=== PATIENT | male | born 1950 | race Caucasian/White ===

== ENCOUNTER 2020-02-17 09:24 | Inpatient (IN) | payer OTHER ==
[~2020-02-17] VITALS: Ht 177.8 cm; Wt 68.3 kg
[2020-02-17 09:55] VITALS: BP 122/82
[2020-02-17] MEDS ORDERED: POTA20TA4 PO (11:08)
[2020-02-17] MEDS ORDERED: ATEN50TA PO (11:08)
[2020-02-17] MEDS ORDERED: ASPI-630 PO (11:08)
[2020-02-17] MEDS ORDERED: QUET50TA5 PO (11:08)
[2020-02-17] MEDS ORDERED: PRAV80TA2 PO (11:08)
[2020-02-17] MEDS ORDERED: SENN8.8S5 PO (11:08)
[2020-02-17] MEDS ORDERED: CALC-56 PO (11:08)
[2020-02-17] MEDS ORDERED: ASCO500T3 PO (11:08)
[2020-02-17] MEDS ORDERED: CHOL100013 PO (11:08)
[2020-02-17] MEDS ORDERED: POLY2500 PO (11:08)
[2020-02-17 13:37] LABS: BASO % 1 % (0-3); EOS % 1 % (0-3); HEMATOCRIT 46.3 % (39.0-53.0); HEMOGLOBIN 15.7 g/dL (13.0-17.5); LYMPH % 17 % (24-48); MEAN CORPUSCULAR HEMOGLOBIN 32 pg (25-35); MEAN CORPUSCULAR HGB CONC 34 g/dL (31-37); MEAN CORPUSCULAR VOLUME 95 fL (79-100); MONO # 0.5 x10^3/uL (0.0-1.1); MONO % 9 % (0-9); NEUT # 4.3 x10^3uL (1.8-7.7); NEUT % 73 % (31-73); PLATELET COUNT 161 x10^3/uL (140-400); RED CELL DISTRIBUTION WIDTH 12.5 % (11.5-14.5); WHITE BLOOD COUNT 5.9 x10^3/uL (4.0-11.0)
[2020-02-17 13:52] LABS: ALBUMIN 3.5 g/dL (3.4-5.0); ALBUMIN/GLOBULIN RATIO 1.1 (1.0-1.7); CALCIUM 9.3 mg/dL (8.5-10.1); CREATININE 0.9 mg/dL (0.7-1.3); GFR 83.2; MAGNESIUM 2.2 mg/dL (1.8-2.4); POTASSIUM 3.9 mmol/L (3.5-5.1); TOTAL BILIRUBIN 0.6 mg/dL (0.2-1.0); TOTAL PROTEIN 6.7 g/dL (6.4-8.2)
[2020-02-17 14:48] VITALS: BP 114/77
--- NOTE | 2020-02-17 15:35 | EKG ---
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
--- NOTE | 2020-02-17 16:46 | HP ---
ADMIT DATE: 02/17/2020 HISTORY OF PRESENT ILLNESS: The patient is a 69-year-old male patient who was referred from [place] with [facility]. He was admitted to [address] [place] [address] to screen for COVID-19 that was already negative there eventually for him to be admitted to [facility] on account of suicidal ideation without any plan, the patient feels in the dark place, wants to , feels unsafe to return to assisted living facility apartment. He is noncompliant with his medication. He apparently has failed outpatient psych treatment and therefore, he will be eventually admitted to [facility] for inpatient psychiatric stabilization. PAST MEDICAL HISTORY: Significant for hypertension, hyperlipidemia, allergic rhinitis. He has vascular dementia with behavioral disturbances. 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 He apparently has poor mobility. He is mostly wheelchair bound. PAST SURGICAL HISTORY: Unremarkable. ALLERGIES: He has no known drug allergies. MEDICATIONS: He was transferred to our hospital to continue on following medications: Pravastatin 80 mg at bedtime, atenolol 50 mg daily, aspirin 81 mg once a day, quetiapine fumarate 25 mg at bedtime, calcium carbonate with vitamin D3 one tablet once a day, potassium chloride 40 mEq once a day, senna 1 tablet daily, ascorbic acid 500 mg daily, cholecalciferol 25 mcg p.o. daily, and polyethylene glycol 17 grams daily. FAMILY HISTORY: Noncontributory. SOCIAL HISTORY: He is apparently . His son has and he has a daughter who lives in [place], [place]. He is a smoker, apparently had history of heavy drinking and alcoholism that quit about 5 years ago. 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 His son had by suicide in 2010. REVIEW OF SYSTEMS: The patient denied any blurring of vision, cataract, glaucoma or macular degeneration. Denied any earache. PHYSICAL EXAMINATION: GENERAL: When examining him today, he was resting slightly propped up in bed, in no apparent respiratory distress. No pallor, jaundice, cyanosis or thyromegaly. No jugular venous distention. No limb edema. VITAL SIGNS: His heart rate was 78, blood pressure was 114/77, temperature was 98, respiratory rate was 20, and oxygen saturation was 98%. HEAD, EYES, EARS, NOSE AND THROAT: Normocephalic, atraumatic. NECK: Supple. HEART: Showed normal first and second heart sounds. No gallop or murmur. CHEST: Clear to auscultation. No crepitation or rhonchi. ABDOMEN: Distended, soft, nontender. NEUROLOGIC: He was awake, alert, somewhat hard of hearing. He has also expressive aphasia and right-sided weakness with fixed flexion contraction of his right upper and right lower extremity. He has poor mobility and high fall risk. He is mostly wheelchair bound. LABORATORY DATA: Showed a white cell count of 5900, hemoglobin 15.7, hematocrit 46, MCV 95, and platelet count of 161,000. His serum sodium 140, potassium 3.9, chloride 104, bicarbonate 25, anion gap of 11, BUN 15, creatinine 0.9, estimated GFR was 83 mL per minute, his glucose 108, calcium was 9.3, magnesium was 2.2. Total bilirubin, AST, ALT, and alkaline phosphatase were normal. Total protein was 6.7, albumin was 3.5. His D-dimer was less than 0.20. ASSESSMENT AND PLAN: In summary, this is a 69-year-old male patient who was admitted to [address] [place] [address] to be screened for COVID-19. Once it is negative, the patient will ultimately be transferred to [facility] on account of suicidal ideation without any plan. The patient feels in dark place, wants to . He is unsafe to return to assisted living facility apartment. He will be admitted for inpatient psychiatric stabilization. ANT LAUGHLIN MD DR: LANIE/dawood JOB#: [id number] / [id number]
[2020-02-17 19:56] VITALS: BP 120/79
--- NOTE | 2020-02-17 20:46 | PDOC ---
Exam Note: Daren Note: Please also refer to the separate dictated note~for this date of service dictated separately.~Patient seen individually. Discussed the patient with Nursing staff reviewed the chart.~Reviewed interim history and current functioning. Reviewed vital signs,~Labs/ Radiology~and current medications noted below. Continue current treatment with the changes noted in the dictated addendum note Assessment: Vital Signs/I&O: Vital Signs Date Time Temp Pulse Resp B/P (MAP) Pulse Ox O2 Delivery O2 Flow Rate FiO2 02/17/20 19:56 97.3 77 20 120/79 (93) 95 Room Air Labs: Laboratory Tests Test 02/17/20 09:35 02/17/20 13:15 Coronavirus (COVID-19)(PCR) Negative (NEGATIVE) White Blood Count 5.9 x10^3/uL (4.0-11.0) Red Blood Count 4.90 x10^6/uL (4.30-5.70) Hemoglobin 15.7 g/dL (13.0-17.5) Hematocrit 46.3 % (39.0-53.0) Mean Corpuscular Volume 95 fL (79-100) Mean Corpuscular Hemoglobin 32 pg (25-35) Mean Corpuscular Hemoglobin Concent 34 g/dL (31-37) Red Cell Distribution Width 12.5 % (11.5-14.5) Platelet Count 161 x10^3/uL (140-400) Neutrophils (%) (Auto) 73 % (31-73) Lymphocytes (%) (Auto) 17 % (24-48) L Monocytes (%) (Auto) 9 % (0-9) Eosinophils (%) (Auto) 1 % (0-3) Basophils (%) (Auto) 1 % (0-3) Neutrophils # (Auto) 4.3 x10^3uL (1.8-7.7) Lymphocytes # (Auto) 1.0 x10^3/uL (1.0-4.8) Monocytes # (Auto) 0.5 x10^3/uL (0.0-1.1) Eosinophils # (Auto) 0.0 x10^3/uL (0.0-0.7) Basophils # (Auto) 0.0 x10^3/uL (0.0-0.2) D-Dimer (Swathi) 0.20 mg/L (0.00-0.50) Sodium Level 140 mmol/L (136-145) Potassium Level 3.9 mmol/L (3.5-5.1) Chloride Level 104 mmol/L (98-107) Carbon Dioxide Level 25 mmol/L (21-32) Anion Gap 11 (6-14) Blood Urea Nitrogen 15 mg/dL (8-26) Creatinine 0.9 mg/dL (0.7-1.3) Estimated GFR (Cockcroft-Gault) 83.2 BUN/Creatinine Ratio 17 (6-20) Glucose Level 108 mg/dL (70-99) H Calcium Level 9.3 mg/dL (8.5-10.1) Magnesium Level 2.2 mg/dL (1.8-2.4) Total Bilirubin 0.6 mg/dL (0.2-1.0) Aspartate Amino Transferase (AST) 9 U/L (15-37) L Alanine Aminotransferase (ALT) 12 U/L (16-63) L Alkaline Phosphatase 74 U/L (46-116) Total Protein 6.7 g/dL (6.4-8.2) Albumin 3.5 g/dL (3.4-5.0) Albumin/Globulin Ratio 1.1 (1.0-1.7) Current Medications: I have reviewed the current psychotropics carefully including drug interactions. Risk benefit ratio favors no change other than as noted in my dictated progress note. MICHAEL MCKEON MD Feb 17, 2020 20:45
[2020-02-18 02:06] LABS: HEMOGLOBIN A1C 5.1 % (4.8-5.6)
--- NOTE | 2020-02-18 08:29 | CONS ---
DATE OF CONSULTATION: 02/17/2020 PSYCHIATRIC CONSULTATION IDENTIFYING DATA: The patient is a 69-year-old male seen in bed 124, [facility], for a psychiatric consult requested by Dr. Nuñez after the patient was referred to us from [facility] and was admitted for [facility] for psychiatric stabilization for his depression, voicing suicidal ideation without any plan. Additionally, he stated he felt he was in a dark place, wanting to , felt unsafe to return to assisted living facility, referred to [facility] and then admitted to [facility] Medical/Surgical floor for COVID screen before going to [facility]. CHIEF COMPLAINT: "Yes, that is how I feel sometimes." HISTORY OF PRESENT ILLNESS: The patient has a history of worsening symptoms of depression, feeling angry, irritable, sleep and appetite changes, some paranoia and suicidal ideation, but without any plans or attempt. No clear symptoms of bipolar disorder. He is reasonably cognitively intact, though he had some short-term memory deficits. PAST PSYCHIATRIC HISTORY: As above. MEDICAL HISTORY: Hypertension, hyperlipidemia, allergic rhinitis, left middle cerebral artery infarct, right sided hemiplegia, aphasia, poor mobility, mostly wheelchair bound. SURGICAL HISTORY: Unremarkable. ALLERGIES: Negative. CURRENT PSYCHOTROPICS: MRAD was reviewed, Seroquel 25 mg at bedtime. FAMILY HISTORY: Noncontributory. SOCIAL HISTORY: The patient is . His son has and he has a daughter who lives in [place], [place]. He is a smoker, has a history of heavy alcohol abuse, quit 5 years ago. 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 Son of suicide in 2010. REVIEW OF SYSTEMS: Ambulation impaired. No CV, , pulmonary, eye, ENT system symptoms on review. MENTAL STATUS EXAMINATION: The patient is reasonably oriented. Speech is coherent, has had some aphasia. Abstraction fair, computation impaired, language function intact, attention span short. Mood and affect withdrawn. LABORATORY DATA: Reviewed. IMPRESSION: Major depressive disorder, recurrent, rule out psychotic features, mild cognitive impairment; anxiety disorder, unspecified; past history of alcohol and polysubstance abuse. Rest as above. RECOMMENDATION: From a psychiatric standpoint, I would not suggest any changes for now. Once COVID is negative, he may transition to [facility] and will continue management there. MAN Sonu MCKEON MD DR: Haroon JOB#: [id number] / [id number]
== END 2020-02-17 22:37 | DRG 885 ==
LOC: 1 SOUTH 09:24
PROVIDERS: ADMIT Internal Medicine; ATTEND Internal Medicine
DX: F33.9 Major depressive disorder, recurrent, unspecified (principal); F01.51 Vascular dementia, unspecified severity, with behavioral disturbance; R45.851 Suicidal ideations; I69.351 Hemiplegia and hemiparesis following cerebral infarction affecting right dominant side; E78.5 Hyperlipidemia, unspecified; I10 Essential (primary) hypertension; Z20.828 Contact with and (suspected) exposure to other viral communicable diseases; I69.320 Aphasia following cerebral infarction; Z87.891 Personal history of nicotine dependence; Z91.14 Patient's other noncompliance with medication regimen
CPT/HCPCS: 36415; 80053; 80061; 82607; 83036; 83735; 84443; 85025; 85379; 86592; 93005; U0003

== ENCOUNTER 2020-02-17 21:21 | Inpatient (IN) | payer OTHER ==
[~2020-02-17] VITALS: Ht 177.8 cm; Wt 68.4 kg
[~2020-02-17 21:21] MED LIST: ASCO500T3 PO; ASPI-630 PO; ATEN50TA PO; CALC-56 PO; CHOL100013 PO; POLY2500 PO; POTA20TA4 PO; PRAV80TA2 PO; QUET50TA5 PO; SENN8.8S5 PO
[2020-02-17] MEDS ORDERED: MAG HYDROX/AL HYDROX/SIMETH 30 ML ORAL.SUSP PO PRN (22:45)
[2020-02-17] MEDS ORDERED: METHYL SALICYLATE/MENTHOL TOPICAL OINTMENT 57GM TUBE. TP PRN (22:45)
[2020-02-17] MEDS ORDERED: ACETAMINOPHEN 325 MG TABLET PO PRN (22:45)
[2020-02-17 22:48] VITALS: BP 125/79
[2020-02-17] MEDS: QUEtiapine 50 MG TABLET. PO SCH (23:17)
[2020-02-18 05:58] VITALS: BP 122/76
[2020-02-18 07:34] LABS: BASO % 1 % (0-3); EOS # 0.1 x10^3/uL (0.0-0.7); EOS % 1 % (0-3); HEMATOCRIT 45.7 % (39.0-53.0); HEMOGLOBIN 15.4 g/dL (13.0-17.5); LYMPH % 16 % (24-48); MEAN CORPUSCULAR HEMOGLOBIN 32 pg (25-35); MEAN CORPUSCULAR HGB CONC 34 g/dL (31-37); MEAN CORPUSCULAR VOLUME 95 fL (79-100); MONO # 0.5 x10^3/uL (0.0-1.1); MONO % 8 % (0-9); NEUT # 4.7 x10^3uL (1.8-7.7); NEUT % 75 % (31-73); PLATELET COUNT 154 x10^3/uL (140-400); RED CELL DISTRIBUTION WIDTH 12.6 % (11.5-14.5); WHITE BLOOD COUNT 6.2 x10^3/uL (4.0-11.0)
[2020-02-18 07:59] LABS: ALBUMIN 3.4 g/dL (3.4-5.0); ALBUMIN/GLOBULIN RATIO 1.1 (1.0-1.7); CALCIUM 8.7 mg/dL (8.5-10.1); CREATININE 0.8 mg/dL (0.7-1.3); GFR 95.3; MAGNESIUM 2.1 mg/dL (1.8-2.4); POTASSIUM 3.7 mmol/L (3.5-5.1); TOTAL BILIRUBIN 0.5 mg/dL (0.2-1.0); TOTAL PROTEIN 6.4 g/dL (6.4-8.2)
[2020-02-18] MEDS: CALCIUM CARB/VIT D3 500/200 TABLET PO SCH (08:35)
[2020-02-18] MEDS: ASPIRIN CHEWABLE 81 MG TABLET. PO SCH (08:35)
[2020-02-18] MEDS: SENNOSIDES 8.6 MG TABLET PO SCH (08:35)
[2020-02-18] MEDS: ASCORBIC ACID 500 MG TABLET PO SCH (08:35)
[2020-02-18] MEDS: POTASSIUM CHLORIDE 20 MEQ TABLET.ER. PO SCH (08:35)
[2020-02-18] MEDS: NICOTINE 14MG PATCH. TD SCH (08:36)
[2020-02-18] MEDS: CHOLECALCIFEROL (VITAMIN D3) 1,000 UNIT TABLET PO SCH (08:36)
[2020-02-18] MEDS: ATENOLOL 50 MG TABLET PO SCH (08:37)
[2020-02-18] MEDS: POLYETHYLENE GLYCOL 3350 17 GM PACKET. PO SCH (09:00)
[2020-02-18] MEDS ORDERED: POLYVINYL ALCOHOL 1.4% OPHTH SOLUTION 15ML BOTTLE. OU PRN (12:00)
[2020-02-18] MEDS: SERTRALINE 25 MG TABLET. PO SCH (12:10)
[2020-02-18 14:50] LABS: THYROID STIM HORMONE (TSH) 1.333 uIU/mL (0.358-3.740)
[2020-02-18 15:54] LABS: BILIRUBIN,URINE NEG (NEG); CLARITY,URINE CLEAR; COLOR,URINE YELLOW; GLUCOSE,URINE NEG (NEG); NITRITE,URINE NEG (NEG); UROBILINOGEN,URINE 0.2 mg/dL (0.2 mg/dL)
[2020-02-18 15:55] LABS: BACTERIA,URINE FEW /HPF (0-FEW); RBC,URINE 0 /HPF (0-2); SQUAMOUS EPITHELIAL CELL,UR OCC /LPF
[2020-02-18 16:16] VITALS: BP 116/80
[2020-02-18] MEDS: QUEtiapine 50 MG TABLET. PO SCH (19:47)
[2020-02-18] MEDS: ATORVASTATIN CALCIUM 10 MG TABLET. PO SCH (19:47)
--- NOTE | 2020-02-18 20:53 | PDOC ---
Exam Note: Daren Note: Please also refer to the separate dictated note~for this date of service dictated separately.~Patient seen individually. Discussed the patient with Nursing staff reviewed the chart.~Reviewed interim history and current functioning. Reviewed vital signs,~Labs/ Radiology~and current medications noted below. Continue current treatment with the changes noted in the dictated addendum note Assessment: Vital Signs/I&O: Vital Signs Date Time Temp Pulse Resp B/P (MAP) Pulse Ox O2 Delivery O2 Flow Rate FiO2 02/18/20 16:16 97.2 61 19 116/80 (92) 97 I & O 02/17/20 02/17/20 02/18/20 15:00 23:00 07:00 Intake Total 0 ml Balance 0 ml Labs: Laboratory Tests Test 02/18/20 07:05 02/18/20 15:28 White Blood Count 6.2 x10^3/uL (4.0-11.0) Red Blood Count 4.80 x10^6/uL (4.30-5.70) Hemoglobin 15.4 g/dL (13.0-17.5) Hematocrit 45.7 % (39.0-53.0) Mean Corpuscular Volume 95 fL (79-100) Mean Corpuscular Hemoglobin 32 pg (25-35) Mean Corpuscular Hemoglobin Concent 34 g/dL (31-37) Red Cell Distribution Width 12.6 % (11.5-14.5) Platelet Count 154 x10^3/uL (140-400) Neutrophils (%) (Auto) 75 % (31-73) H Lymphocytes (%) (Auto) 16 % (24-48) L Monocytes (%) (Auto) 8 % (0-9) Eosinophils (%) (Auto) 1 % (0-3) Basophils (%) (Auto) 1 % (0-3) Neutrophils # (Auto) 4.7 x10^3uL (1.8-7.7) Lymphocytes # (Auto) 1.0 x10^3/uL (1.0-4.8) Monocytes # (Auto) 0.5 x10^3/uL (0.0-1.1) Eosinophils # (Auto) 0.1 x10^3/uL (0.0-0.7) Basophils # (Auto) 0.0 x10^3/uL (0.0-0.2) D-Dimer (Swathi) 0.21 mg/L (0.00-0.50) Sodium Level 142 mmol/L (136-145) Potassium Level 3.7 mmol/L (3.5-5.1) Chloride Level 107 mmol/L (98-107) Carbon Dioxide Level 28 mmol/L (21-32) Anion Gap 7 (6-14) Blood Urea Nitrogen 16 mg/dL (8-26) Creatinine 0.8 mg/dL (0.7-1.3) Estimated GFR (Cockcroft-Gault) 95.3 BUN/Creatinine Ratio 20 (6-20) Glucose Level 86 mg/dL (70-99) Calcium Level 8.7 mg/dL (8.5-10.1) Magnesium Level 2.1 mg/dL (1.8-2.4) Iron Level 63 ug/dL (65-175) L Total Iron Binding Capacity 222 ug/dL (250-450) L Iron Saturation 28 % (15-34) Total Bilirubin 0.5 mg/dL (0.2-1.0) Aspartate Amino Transferase (AST) 8 U/L (15-37) L Alanine Aminotransferase (ALT) 10 U/L (16-63) L Alkaline Phosphatase 69 U/L (46-116) Total Protein 6.4 g/dL (6.4-8.2) Albumin 3.4 g/dL (3.4-5.0) Albumin/Globulin Ratio 1.1 (1.0-1.7) Triglycerides Level 67 mg/dL (0-150) Cholesterol Level 120 mg/dL (0-200) LDL Cholesterol, Calculated 60 mg/dL (0-100) VLDL Cholesterol, Calculated 13 mg/dL (0-40) Non-HDL Cholesterol Calculated 73 mg/dL (0-129) HDL Cholesterol 47 mg/dL (40-60) Cholesterol/HDL Ratio 2.0 Vitamin B12 Level 242 pg/mL (247-911) L 25-Hydroxy Vitamin D Total 34.5 ng/mL (30-100) Thyroid Stimulating Hormone (TSH) 1.333 uIU/mL (0.358-3.740) Treponema pallidum Antibody Nonreactive (Nonreactive) Urine Collection Type Unknown Urine Color Yellow Urine Clarity Clear Urine pH 6.5 Urine Specific [place] >=1.030 Urine Protein Neg (NEG-TRACE) Urine Glucose (UA) Neg mg/dL (NEG) Urine Ketones (Stick) Neg mg/dL (NEG) Urine Blood Neg (NEG) Urine Nitrite Neg (NEG) Urine Bilirubin Neg (NEG) Urine Urobilinogen Dipstick 0.2 mg/dL (0.2 mg/dL) Urine Leukocyte Esterase Trace (NEG) Urine RBC 0 /HPF (0-2) Urine WBC 11-20 /HPF (0-4) Urine Squamous Epithelial Cells Occ /LPF Urine Bacteria Few /HPF (0-FEW) Urine Mucus Slight /LPF Current Medications: Meds: Current Medications Medications (Trade) Dose Ordered Sig/Daisy Route PRN Reason Start Time Stop Time Status Last Admin Dose Admin Nicotine (Nicoderm Cq 14mg Patch) 1 patch DAILY TD 02/18/20 09:00 02/18/20 08:36 Ascorbic Acid (Vitamin C) 500 mg DAILY PO 02/18/20 09:00 02/18/20 08:35 Aspirin (Aspirin Chewable) 81 mg DAILY PO 02/18/20 09:00 02/18/20 08:35 Atenolol (Tenormin) 50 mg DAILY PO 02/18/20 09:00 02/18/20 08:37 Calcium/Vitamin D (Oscal D 500mg/ 200uts) 1 tab DAILY PO 02/18/20 09:00 02/18/20 08:35 Potassium Chloride (Klor-Con) 40 meq DAILY PO 02/18/20 09:00 02/18/20 08:35 Vitamin D (Vitamin D3) 1,000 unit DAILY PO 02/18/20 09:00 02/18/20 08:36 Atorvastatin Calcium (Lipitor) 10 mg QHS PO 02/18/20 21:00 02/18/20 19:47 Sennosides (Senna) 8.6 mg DAILY PO 02/18/20 09:00 02/18/20 08:35 Quetiapine Fumarate (SEROquel) 25 mg QHS PO 02/17/20 23:15 02/18/20 19:47 Sertraline HCl (Zoloft) 50 mg DAILY PO 02/18/20 12:00 02/18/20 12:10 I have reviewed the current psychotropics carefully including drug interactions. Risk benefit ratio favors no change other than as noted in my dictated progress note. Diagnosis: Problems: (1) Major depressive disorder, severe (2) Anxiety disorder, unspecified (3) Impulse control disorder, unspecified MICHAEL MCKEON MD Feb 18, 2020 20:53
[2020-02-18] MEDS ORDERED: QUEtiapine 50 MG TABLET. PO SCH (21:00)
[2020-02-18 21:11] LABS: THYROXINE 5.5 ug/dL (4.5-12.0)
--- NOTE | 2020-02-18 23:37 | CONS ---
DATE OF CONSULTATION: 02/18/2020 REASON FOR CONSULTATION: Medical management. HISTORY OF PRESENT ILLNESS: The patient is a 69-year-old male patient who was originally admitted to [address] [place] [address] to be screened for COVID-19. Ultimately, his COVID-19 by PCR was negative and was admitted to [facility] for inpatient psychiatric stabilization. He apparently was referred from [facility] on account of depression, voicing suicidal ideation without any plan. Additionally, he stated that he felt he was in a dark place, wanting to , felt unsafe to return to assisted living facility. When I saw him today, he was complaining of stuffy nose and would like a nasal spray for that, but denied any other complaint. PAST MEDICAL HISTORY: Significant for hypertension, hyperlipidemia, allergic rhinitis. He has vascular dementia with behavioral disturbances. 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 He apparently has poor mobility. He is mostly wheelchair bound. PAST SURGICAL HISTORY: Unremarkable. ALLERGIES: He has no known drug allergies. FAMILY HISTORY: Noncontributory. SOCIAL HISTORY: He is apparently . His son has and his daughter lives in [place], [place]. He is a smoker, apparently had a history of heavy drinking and alcoholism, but quit about 5 years ago. He also has a history of amphetamine use prior to his CVA in 2006. His son actually by suicide in 2010. REVIEW OF SYSTEMS: As per history of present illness. MEDICATIONS: He is currently on following medications: He is on atorvastatin 10 mg at bedtime, artificial tears 1 drop every 50 minutes as needed, sertraline 50 mg daily, senna 1 tablet once a day, polyethylene glycol 17 grams daily, vitamin D 1000 international units once a day, potassium chloride 40 mEq daily, calcium with vitamin D one tablet once a day, atenolol 50 mg once a day, aspirin 81 mg once a day, ascorbic acid 500 mg daily, nicotine 1 patch topically, quetiapine fumarate 25 mg at bedtime, magnesium hydroxide for milk of magnesia 30 mL p.o. daily p.r.n. for constipation, acetaminophen 650 mg once a day. PHYSICAL EXAMINATION: GENERAL: On examining him, he was resting slightly propped up in bed, in no apparent respiratory distress. No pallor, jaundice, cyanosis or thyromegaly. No jugular venous distention. No lower limb edema. VITAL SIGNS: His heart rate was 61, blood pressure 116/80, temperature 97.2, respiratory rate was 19 and oxygen saturation was 97%. HEAD, EYES, EARS, NOSE AND THROAT: Showed normocephalic, atraumatic. NECK: Supple. HEART: Showed normal first and second heart sounds. No gallop or murmur. CHEST: Clear to auscultation. No crepitation or rhonchi. ABDOMEN: Scaphoid, soft, nontender. NEUROLOGIC: He was awake, alert. All his cranial nerves are intact. He does have right-sided hemiplegia. He is mostly bedbound, wheelchair bound. LABORATORY DATA: Showed a white cell count 6200, hemoglobin 15, hematocrit 45, MCV 95, and platelet count 154,000. His serum iron, TIBC and iron saturation are all consistent with repleted serum iron. His vitamin B12 is low at 242 pg/mL; however, his 25-hydroxy vitamin D is well within normal limits as well as his TSH is normal. His treponema pallidum antibodies unreactive and urinalysis essentially unremarkable. ASSESSMENT AND PLAN: My plan is to basically start him on Flonase 2 sprays to each nostril once a day. I will also start him on cyanocobalamin as his vitamin B12 is clearly extremely low, although his hemoglobin, hematocrit and MCV are all within normal range. Thank you, Dr. Cornell, for allowing me to participate in the care of this patient. ANT LAUGHLIN MD DR: LANIE/dawood JOB#: [id number] / [id number]
[2020-02-19 00:06] LABS: HEMOGLOBIN A1C 5.2 % (4.8-5.6)
[2020-02-19 06:00] VITALS: BP 143/82
[2020-02-19] MEDS: CHOLECALCIFEROL (VITAMIN D3) 1,000 UNIT TABLET PO SCH (08:31)
[2020-02-19] MEDS: CALCIUM CARB/VIT D3 500/200 TABLET PO SCH (08:32)
[2020-02-19] MEDS: ATENOLOL 50 MG TABLET PO SCH (08:32)
[2020-02-19] MEDS: POLYETHYLENE GLYCOL 3350 17 GM PACKET. PO SCH (08:33)
[2020-02-19] MEDS: SENNOSIDES 8.6 MG TABLET PO SCH (08:33)
[2020-02-19] MEDS: ASCORBIC ACID 500 MG TABLET PO SCH (08:33)
[2020-02-19] MEDS: ASPIRIN CHEWABLE 81 MG TABLET. PO SCH (08:33)
[2020-02-19] MEDS: NICOTINE 14MG PATCH. TD SCH (08:33)
[2020-02-19] MEDS: SERTRALINE 25 MG TABLET. PO SCH (08:33)
[2020-02-19] MEDS: FLUTICASONE 50MCG/NASAL SPRAY 16GM BOTTLE. NS SCH (08:34)
[2020-02-19] MEDS: POTASSIUM CHLORIDE 20 MEQ TABLET.ER. PO SCH (08:34)
[2020-02-19 15:58] VITALS: BP 134/84
[2020-02-19] MEDS: ATORVASTATIN CALCIUM 10 MG TABLET. PO SCH (19:54)
[2020-02-19] MEDS: QUEtiapine 50 MG TABLET. PO SCH (19:54)
--- NOTE | 2020-02-19 21:00 | PDOC ---
Exam Note: Daren Note: Please also refer to the separate dictated note~for this date of service dictated separately.~Patient seen individually. Discussed the patient with Nursing staff reviewed the chart.~Reviewed interim history and current functioning. Reviewed vital signs,~Labs/ Radiology~and current medications noted below. Continue current treatment with the changes noted in the dictated addendum note Assessment: Vital Signs/I&O: Vital Signs Date Time Temp Pulse Resp B/P (MAP) Pulse Ox O2 Delivery O2 Flow Rate FiO2 02/19/20 15:58 97.9 76 18 134/84 (101) 96 02/19/20 06:00 Room Air I & O 02/18/20 02/18/20 02/19/20 14:59 22:59 06:59 Intake Total 440 ml 120 ml 0 ml Balance 440 ml 120 ml 0 ml Current Medications: Meds: Current Medications Medications (Trade) Dose Ordered Sig/Daisy Route PRN Reason Start Time Stop Time Status Last Admin Dose Admin Fluticasone Propionate (Flonase) 2 spray DAILY NS 02/19/20 09:00 02/19/20 08:34 I have reviewed the current psychotropics carefully including drug interactions. Risk benefit ratio favors no change other than as noted in my dictated progress note. Diagnosis: Problems: (1) Impulse control disorder, unspecified (2) Major depressive disorder, severe (3) Anxiety disorder, unspecified MICHAEL MCKEON MD Feb 19, 2020 21:00
[2020-02-19 23:13] VITALS: BP 139/74
[2020-02-20 06:00] VITALS: BP 120/70
[2020-02-20] MEDS: SERTRALINE 25 MG TABLET. PO SCH (08:07)
[2020-02-20] MEDS: ASPIRIN CHEWABLE 81 MG TABLET. PO SCH (08:07)
[2020-02-20] MEDS: POLYETHYLENE GLYCOL 3350 17 GM PACKET. PO SCH (08:07)
[2020-02-20] MEDS: SENNOSIDES 8.6 MG TABLET PO SCH (08:07)
[2020-02-20] MEDS: NICOTINE 14MG PATCH. TD SCH (08:07)
[2020-02-20] MEDS: CHOLECALCIFEROL (VITAMIN D3) 1,000 UNIT TABLET PO SCH (08:08)
[2020-02-20] MEDS: ASCORBIC ACID 500 MG TABLET PO SCH (08:08)
[2020-02-20] MEDS: CALCIUM CARB/VIT D3 500/200 TABLET PO SCH (08:08)
[2020-02-20] MEDS: POTASSIUM CHLORIDE 20 MEQ TABLET.ER. PO SCH (08:08)
[2020-02-20] MEDS: ATENOLOL 50 MG TABLET PO SCH (08:09)
[2020-02-20] MEDS: FLUTICASONE 50MCG/NASAL SPRAY 16GM BOTTLE. NS SCH (08:11)
[2020-02-20 14:33] VITALS: BP 121/74
[2020-02-20 19:00] VITALS: BP 121/74
[2020-02-20] MEDS: QUEtiapine 50 MG TABLET. PO SCH (20:31)
[2020-02-20] MEDS: ATORVASTATIN CALCIUM 10 MG TABLET. PO SCH (20:31)
--- NOTE | 2020-02-20 20:52 | PDOC ---
Exam Note: Daren Note: Please also refer to the separate dictated note~for this date of service dictated separately.~Patient seen individually. Discussed the patient with Nursing staff reviewed the chart.~Reviewed interim history and current functioning. Reviewed vital signs,~Labs/ Radiology~and current medications noted below. Continue current treatment with the changes noted in the dictated addendum note Assessment: Vital Signs/I&O: Vital Signs Date Time Temp Pulse Resp B/P (MAP) Pulse Ox O2 Delivery O2 Flow Rate FiO2 02/20/20 14:33 98.0 71 19 121/74 (90) 96 02/20/20 06:00 Room Air I & O 02/19/20 02/19/20 02/20/20 15:00 23:00 07:00 Intake Total 550 ml 400 ml Balance 550 ml 400 ml Current Medications: I have reviewed the current psychotropics carefully including drug interactions. Risk benefit ratio favors no change other than as noted in my dictated progress note. Diagnosis: Problems: (1) Impulse control disorder, unspecified (2) Major depressive disorder, severe (3) Anxiety disorder, unspecified MICHAEL MCKEON MD Feb 20, 2020 20:52
[2020-02-20] MEDS: MAGNESIUM HYDROXIDE 2,400 MG/30 ML ORAL.SUSP. PO PRN (23:00)
[2020-02-21 06:28] VITALS: BP 114/72
--- NOTE | 2020-02-21 07:25 | HP ---
ADMIT DATE: 02/18/2020 PSYCHIATRIC ADMISSION HISTORY/EVALUATION This late entry date of service 02/17 covers elements not covered in my initial note on 02/17. This note was stated at the time of the patient's admission, but it cannot be traced in the electronic medical records and I am re-dictating it. IDENTIFYING DATA: The patient is a 69-year-old male referred to us from the [facility] in [place] where he presented from [facility] on account of worsening symptoms of depression and suicidal ideation, but without plan or attempt. The patient stated he felt he was in a "dark place" wanted to . He indicated to the [place] staff that he felt unsafe to return to the assisted living facility. He had failed outpatient psychiatric interventions and then referred for inpatient psychiatric stabilization. He was initially admitted to the medical/surgical floor. COVID screen was repeated and found to be negative and then he transitions to the [facility]. CHIEF COMPLAINT: "Yes, I have been depressed ____ I want to try to hurt myself. I felt that way." HISTORY OF PRESENT ILLNESS: The patient has a history of worsening symptoms of depression, feeling hopeless, helpless, worthless with some sleep and appetite changes, irritability and suicidal ideation as noted above. He has had no clear psychotic symptoms or homicidal ideation. No clear history of bipolar disorder. PAST PSYCHIATRIC HISTORY: Positive for depression. The patient has a past history of alcohol and drug abuse. PAST MEDICAL HISTORY: Status post cerebrovascular accident with right-sided residual deficits, hypertension, hyperlipidemia. Past history of alcohol or drug abuse. He is a smoker and has a history of allergic rhinitis. DRUG ALLERGIES: Negative. CODE STATUS: Full code. ACCU-CHEKS: None. DIET: Dysphagia 3 since he has no teeth. Takes medications whole. Ambulates wheelchair with times to assist. UA on 02/17 was positive. Culture is pending. CURRENT PSYCHOTROPICS: Zoloft 50 mg a day, Seroquel 25 mg at bedtime. FAMILY HISTORY: Noncontributory. SOCIAL HISTORY: Positive for drug, alcohol abuse as noted above. He is a smoker. No physical, sexual or elder abuse history is noted. He is not known to be a perpetrator. REVIEW OF SYSTEMS: Impaired ambulation in wheelchair. No CV, , pulmonary, eye system symptoms on review. Does have deficits consistent with his status post CVA status. MENTAL STATUS EXAMINATION: The patient is reasonably oriented. He is somewhat anxious, over reactive at times. Speech coherent, a little pressured. Abstraction fair, computation impaired, language function intact, attention span short. No active suicidal or homicidal ideation. Mood is depressed, anxious. LABORATORY DATA: Reviewed. IMPRESSION: Major depressive disorder, recurrent with history of suicidal ideation; mild cognitive impairment; anxiety disorder, unspecified. Rest as above. PLAN: Admit to Geropsychiatry Unit at [facility]. I will see the patient daily individually from a psychiatric standpoint. Medical followup per Dr. Nuñez/Dr. Aparicio. Continue current psychotropics. Consider increasing Zoloft perhaps changing Seroquel to Abilify to augment the Zoloft considering Wellbutrin as a further antidepressant augmentation strategy. We will make all these decisions depending on his response to initial interventions. ESTIMATED LENGTH OF STAY: 10-12 days. DISPOSITION: Plans back to [facility] when stable. MICHAEL MCKEON MD DR: ELIAN/dawood JOB#: [id number] / [id number]
--- NOTE | 2020-02-21 07:34 | PDOC ---
Exam Note: Daren Note: This note is a late entry for 02/19/2020 covers elements not covered in my initial note. Subjective: The patient was seen face to face in the evening of 02/19/2020 with nursing staff services manager. Discussed with nursing staff, reviewed the chart. The patient remains withdrawn. Denies overt psychotic symptoms, minimizes being depressed, wanting to leave the hospital. I addressed this with him at some length. The patient slept 8-3/4 hours previous night. Review of Systems: Ambulation impaired in wheelchair. No CV, , pulmonary, eye system symptoms on review. Mental Status Exam: Reasonably oriented. Speech is coherent. Abstraction is fair. Computation is impaired. Language function intact. Mood and affect still depressed, withdrawn. No suicidal or homicidal ideation. Laboratory Data: Reviewed. Impression: Major depressive disorder with psychotic features. Anxiety disorder unspecified. Impulse control disorder. Plan: Maintain Seroquel 25 mg h.s., Zoloft 50 mg a day, may need to increase Zoloft gradually. Assessment: Vital Signs/I&O: Vital Signs Date Time Temp Pulse Resp B/P (MAP) Pulse Ox O2 Delivery O2 Flow Rate FiO2 02/21/20 06:28 97.5 63 16 114/72 (86) 96 02/20/20 06:00 Room Air I & O 02/20/20 02/20/20 02/21/20 15:00 23:00 07:00 Intake Total 120 ml 720 ml Balance 120 ml 720 ml Current Medications: I have reviewed the current psychotropics carefully including drug interactions. Risk benefit ratio favors no change other than as noted in my dictated progress note. Diagnosis: Problems: (1) Impulse control disorder, unspecified (2) Major depressive disorder, severe (3) Anxiety disorder, unspecified MICHAEL MCKEON MD Feb 21, 2020 07:34
--- NOTE | 2020-02-21 07:52 | PDOC ---
Exam Note: Daren Note: This note is a late entry for 02/20/2020 covers elements not covered in my initial note. Subjective: The patient was seen face to face in the evening of 02/20/2020 with Meaghan MATIAS. Discussed with nursing staff, reviewed the chart. Overall the patient is sleeping reasonably well. He sleeps off and on during the day as well, somewhat withdrawn. Review of Systems: Ambulation impaired in wheelchair. No CV, , pulmonary, eye system symptoms on review. Mental Status Exam: Reasonably oriented. Speech has some latency, coherent. Abstraction is fair. Computation is impaired. Language function intact. Attention span is short. Mood and affect still depressed, but he denies suicidal ideation. He admits in the past he had suicidal ideation but none now. Laboratory Data: Reviewed. Impression: Major depressive disorder with psychotic features. Anxiety disorder unspecified. Impulse control disorder. Plan: No change from initial note. Assessment: Vital Signs/I&O: Vital Signs Date Time Temp Pulse Resp B/P (MAP) Pulse Ox O2 Delivery O2 Flow Rate FiO2 02/21/20 06:28 97.5 63 16 114/72 (86) 96 02/20/20 06:00 Room Air I & O 02/20/20 02/20/20 02/21/20 15:00 23:00 07:00 Intake Total 120 ml 720 ml Balance 120 ml 720 ml Current Medications: I have reviewed the current psychotropics carefully including drug interactions. Risk benefit ratio favors no change other than as noted in my dictated progress note. Diagnosis: Problems: (1) Impulse control disorder, unspecified (2) Major depressive disorder, severe (3) Anxiety disorder, unspecified MICHAEL MCKEON MD Feb 21, 2020 07:52
[2020-02-21] MEDS: FLUTICASONE 50MCG/NASAL SPRAY 16GM BOTTLE. NS SCH (09:08)
[2020-02-21] MEDS: POTASSIUM CHLORIDE 20 MEQ TABLET.ER. PO SCH (09:08)
[2020-02-21] MEDS: ASPIRIN CHEWABLE 81 MG TABLET. PO SCH (09:08)
[2020-02-21] MEDS: CHOLECALCIFEROL (VITAMIN D3) 1,000 UNIT TABLET PO SCH (09:08)
[2020-02-21] MEDS: NICOTINE 14MG PATCH. TD SCH (09:08)
[2020-02-21] MEDS: POLYETHYLENE GLYCOL 3350 17 GM PACKET. PO SCH (09:08)
[2020-02-21] MEDS: ASCORBIC ACID 500 MG TABLET PO SCH (09:08)
[2020-02-21] MEDS: SERTRALINE 25 MG TABLET. PO SCH (09:08)
[2020-02-21] MEDS: CALCIUM CARB/VIT D3 500/200 TABLET PO SCH (09:09)
[2020-02-21] MEDS: ATENOLOL 50 MG TABLET PO SCH (09:09)
[2020-02-21] MEDS: SENNOSIDES 8.6 MG TABLET PO SCH (09:09)
[2020-02-21 15:52] VITALS: BP 144/70
[2020-02-21] MEDS: ATORVASTATIN CALCIUM 10 MG TABLET. PO SCH (20:12)
[2020-02-21] MEDS: QUEtiapine 50 MG TABLET. PO SCH (20:12)
--- NOTE | 2020-02-21 20:38 | PDOC ---
Exam Note: Daren Note: Please also refer to the separate dictated note~for this date of service dictated separately.~Patient seen individually. Discussed the patient with Nursing staff reviewed the chart.~Reviewed interim history and current functioning. Reviewed vital signs,~Labs/ Radiology~and current medications noted below. Continue current treatment with the changes noted in the dictated addendum note Assessment: Vital Signs/I&O: Vital Signs Date Time Temp Pulse Resp B/P (MAP) Pulse Ox O2 Delivery O2 Flow Rate FiO2 02/21/20 15:52 97.5 69 19 144/70 (94) 96 Room Air I & O 02/20/20 02/20/20 02/21/20 15:00 23:00 07:00 Intake Total 120 ml 720 ml Balance 120 ml 720 ml Current Medications: I have reviewed the current psychotropics carefully including drug interactions. Risk benefit ratio favors no change other than as noted in my dictated progress note. Diagnosis: Problems: (1) Impulse control disorder, unspecified (2) Major depressive disorder, severe (3) Anxiety disorder, unspecified MICHAEL MCKEON MD Feb 21, 2020 20:37
[2020-02-22 06:25] VITALS: BP 116/73
--- NOTE | 2020-02-22 07:51 | PDOC ---
Exam Note: Daren Note: This note is a late entry for 02/21/2020 covers elements not covered in my initial note. Subjective: The patient was seen face to face in the evening of 02/21/2020 with Shelby MATIAS. Discussed with nursing staff, reviewed the chart. The patient slept 7 hours previous night. He has been anxious, restless, yells out at times if he gets over-stimulated with noises around him. He did have a fall on Saturday. No injury noted. He intermittently gets psychotic, agitated. We will start Zyprexa 2.5 mg q.2h. p.r.n. psychosis, agitation, max 10 mg in 24 hours. He calls himself grumpy old man but thoroughly denies suicidal ideation as I questioned him. Review of Systems: Ambulation impaired in wheelchair. No CV, , pulmonary, eye system symptoms on review. Mental Status Exam: Reasonably oriented. He was little more verbally interactive, quite anxious however as I met with him. Speech coherent. Abstraction is fair. Computation is impaired. Language function intact. Attention span is short. Mood and affect still depressed. No active suicidal or homicidal ideation. Laboratory Data: Reviewed. Impression: Major depressive disorder with psychotic features. Anxiety disorder unspecified. Impulse control disorder. Plan: No change from initial note. Assessment: Vital Signs/I&O: Vital Signs Date Time Temp Pulse Resp B/P (MAP) Pulse Ox O2 Delivery O2 Flow Rate FiO2 02/22/20 06:25 98.3 59 14 116/73 (87) 97 02/21/20 15:52 Room Air I & O 02/21/20 02/21/20 02/22/20 15:00 23:00 07:00 Intake Total 240 ml 480 ml 120 ml Balance 240 ml 480 ml 120 ml Current Medications: I have reviewed the current psychotropics carefully including drug interactions. Risk benefit ratio favors no change other than as noted in my dictated progress note. Diagnosis: Problems: (1) Impulse control disorder, unspecified (2) Major depressive disorder, severe (3) Anxiety disorder, unspecified MICHAEL MCKEON MD Feb 22, 2020 07:51
[2020-02-22] MEDS: ASPIRIN CHEWABLE 81 MG TABLET. PO SCH (08:35)
[2020-02-22] MEDS: FLUTICASONE 50MCG/NASAL SPRAY 16GM BOTTLE. NS SCH (08:35)
[2020-02-22] MEDS: POLYETHYLENE GLYCOL 3350 17 GM PACKET. PO SCH (08:36)
[2020-02-22] MEDS: CHOLECALCIFEROL (VITAMIN D3) 1,000 UNIT TABLET PO SCH (08:36)
[2020-02-22] MEDS: CALCIUM CARB/VIT D3 500/200 TABLET PO SCH (08:36)
[2020-02-22] MEDS: SENNOSIDES 8.6 MG TABLET PO SCH (08:36)
[2020-02-22] MEDS: POTASSIUM CHLORIDE 20 MEQ TABLET.ER. PO SCH (08:36)
[2020-02-22] MEDS: ASCORBIC ACID 500 MG TABLET PO SCH (08:36)
[2020-02-22] MEDS: SERTRALINE 25 MG TABLET. PO SCH (08:37)
[2020-02-22] MEDS: NICOTINE 14MG PATCH. TD SCH (08:37)
[2020-02-22] MEDS: ATENOLOL 50 MG TABLET PO SCH (09:00)
[2020-02-22 16:15] VITALS: BP 128/70
--- NOTE | 2020-02-22 16:54 | TX PLAN ---
Interdisciplinary Tx Plan Admission Information Feb 17, 2020 at 21:21 Legal Status (on Admission): Voluntary DPOA/Guardian Name: Milvia Valadez Contact Other Contact Name: Mercedes LUND Other Contact Verified Code Status: Full Code Allergies: Coded Allergies: No Known Drug Allergies (Unverified , 02/17/20) Diagnoses Primary Diagnosis: MDD Reasons for Admission: Suicidal ideation, Poor impulse control, Other Problem in Patient's Words: This is not new behaviors for him. Additional Admission Comments: According to the intake, pt is SI without a plan, feels in the dark and wants to .feels unsafe to return to [facility], non-compliant with meds Problems Active Problems: irritable argumentative SI no plan Inactive Problems: Medication complianct Pt Strengths/Limitations Ability for [place]: Fair Cognitive Functioning/Ability: Fair Communication Skills/Ability: Fair Financial Resources: Fair Insight/Judgement: Poor Intellectual Ability: Fair Physical Health: Poor Social Skills: Fair Stability in Family: Fair Stability in School/Work: Fair Verbal Skills: Good Discharge Criteria Discharge Criteria: Able meet basic life need, Adequate arrangements @DC, Improved behavior, Improved mood/thought Preliminary Discharge Plan Preliminary DC Plan: Assisted Living Special Precautions Fall Risk: Low Initial D/C Plan Pt to return to [facility] Identified Discharge Needs: Psychiatric care needs Currently Utilized Resources Currently Utilized Resources/P: Primary Care Physicians Identified Problems/Hx/Goals Objectives/Short-Term Goals Short Term Goals: Dec. Outbursts, Medication Stabilization, Promote Coping Skill Short Term Goals in Patient's: N/A Interventions/Frequency Staff Interventions/Frequency&: Psychiatrist to assess pt at least 3x per week for medication mgmt. Social Work to assess pt at least 2x per week for discharge plannnig and assess potential discharge barriers. Nursing to assess behaviors, monitor medication effects and complete 15 minute checks. Encourage group participation in activities (if applicable) or 1:1 engagement based off activity dept assessment. 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 Pt retired early due to "not liking people". 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
[2020-02-22] MEDS: ATORVASTATIN CALCIUM 10 MG TABLET. PO SCH (19:50)
[2020-02-22] MEDS: QUEtiapine 50 MG TABLET. PO SCH (19:50)
--- NOTE | 2020-02-22 20:54 | PDOC ---
Exam Note: Daren Note: Please also refer to the separate dictated note~for this date of service dictated separately.~Patient seen individually. Discussed the patient with Nursing staff reviewed the chart.~Reviewed interim history and current functioning. Reviewed vital signs,~Labs/ Radiology~and current medications noted below. Continue current treatment with the changes noted in the dictated addendum note Assessment: Vital Signs/I&O: Vital Signs Date Time Temp Pulse Resp B/P (MAP) Pulse Ox O2 Delivery O2 Flow Rate FiO2 02/22/20 16:15 98.5 63 18 128/70 (89) 97 02/21/20 15:52 Room Air I & O 02/21/20 02/21/20 02/22/20 14:59 22:59 06:59 Intake Total 240 ml 480 ml 120 ml Balance 240 ml 480 ml 120 ml Current Medications: Meds: Current Medications Medications (Trade) Dose Ordered Sig/Daisy Route PRN Reason Start Time Stop Time Status Last Admin Dose Admin Sertraline HCl (Zoloft) 75 mg DAILY PO 02/22/20 09:00 02/24/20 11:00 02/22/20 08:37 I have reviewed the current psychotropics carefully including drug interactions. Risk benefit ratio favors no change other than as noted in my dictated progress note. Diagnosis: Problems: (1) Impulse control disorder, unspecified (2) Major depressive disorder, severe (3) Anxiety disorder, unspecified MICHAEL MCKEON MD Feb 22, 2020 20:54
[2020-02-23 06:20] VITALS: BP 131/76
--- NOTE | 2020-02-23 07:25 | PDOC ---
Exam Note: Daren Note: This note is a late entry for 02/22/2020 covers elements not covered in my initial note. Subjective: The patient was seen face to face in the evening of 02/22/2020 with Shelby MATIAS. Discussed with nursing staff, reviewed the chart. The patient slept 73/4 hours previous night. He did well previous night, less irritable during the day. Review of Systems: Ambulation impaired in wheelchair. No CV, , pulmonary, eye system symptoms on review. Mental Status Exam: Reasonably oriented. Speech has some latency, coherent. Abstraction is fair. Computation is impaired. Language function intact. Attention span is short. Mood and affect somewhat withdrawn. Denies suicidal ideation. Laboratory Data: Reviewed. Impression: Major depressive disorder with psychotic features. Anxiety disorder unspecified. Impulse control disorder. Plan: After the patient has been on Zoloft 75 mg a day for 3 days, we will increase to 100 mg a day. Rest unchanged for now. Assessment: Vital Signs/I&O: Vital Signs Date Time Temp Pulse Resp B/P (MAP) Pulse Ox O2 Delivery O2 Flow Rate FiO2 02/23/20 06:20 97.5 64 20 131/76 (94) 97 02/21/20 15:52 Room Air I & O 02/22/20 02/22/20 02/23/20 15:00 23:00 07:00 Intake Total 480 ml 360 ml 120 ml Balance 480 ml 360 ml 120 ml Current Medications: Meds: Current Medications Medications (Trade) Dose Ordered Sig/Daisy Route PRN Reason Start Time Stop Time Status Last Admin Dose Admin Sertraline HCl (Zoloft) 75 mg DAILY PO 02/22/20 09:00 02/24/20 11:00 02/22/20 08:37 I have reviewed the current psychotropics carefully including drug interactions. Risk benefit ratio favors no change other than as noted in my dictated progress note. Diagnosis: Problems: (1) Impulse control disorder, unspecified (2) Major depressive disorder, severe (3) Anxiety disorder, unspecified MICHAEL MCKEON MD Feb 23, 2020 07:25
[2020-02-23] MEDS: ASPIRIN CHEWABLE 81 MG TABLET. PO SCH (09:31)
[2020-02-23] MEDS: ATENOLOL 50 MG TABLET PO SCH (09:31)
[2020-02-23] MEDS: ASCORBIC ACID 500 MG TABLET PO SCH (09:32)
[2020-02-23] MEDS: SERTRALINE 25 MG TABLET. PO SCH (09:32)
[2020-02-23] MEDS: CHOLECALCIFEROL (VITAMIN D3) 1,000 UNIT TABLET PO SCH (09:32)
[2020-02-23] MEDS: CALCIUM CARB/VIT D3 500/200 TABLET PO SCH (09:32)
[2020-02-23] MEDS: POTASSIUM CHLORIDE 20 MEQ TABLET.ER. PO SCH (09:34)
[2020-02-23] MEDS: FLUTICASONE 50MCG/NASAL SPRAY 16GM BOTTLE. NS SCH (09:35)
[2020-02-23] MEDS: SENNOSIDES 8.6 MG TABLET PO SCH (09:35)
[2020-02-23] MEDS: NICOTINE 14MG PATCH. TD SCH (09:35)
[2020-02-23] MEDS: POLYETHYLENE GLYCOL 3350 17 GM PACKET. PO SCH (09:36)
[2020-02-23 16:27] VITALS: BP 135/73
[2020-02-23] MEDS: ATORVASTATIN CALCIUM 10 MG TABLET. PO SCH (20:33)
[2020-02-23] MEDS: QUEtiapine 50 MG TABLET. PO SCH (20:41)
--- NOTE | 2020-02-23 20:48 | PDOC ---
Exam Note: Daren Note: Please also refer to the separate dictated note~for this date of service dictated separately.~Patient seen individually. Discussed the patient with Nursing staff reviewed the chart.~Reviewed interim history and current functioning. Reviewed vital signs,~Labs/ Radiology~and current medications noted below. Continue current treatment with the changes noted in the dictated addendum note Assessment: Vital Signs/I&O: Vital Signs Date Time Temp Pulse Resp B/P (MAP) Pulse Ox O2 Delivery O2 Flow Rate FiO2 02/23/20 16:27 97.2 61 18 135/73 (93) 95 02/21/20 15:52 Room Air I & O 02/22/20 02/22/20 02/23/20 15:00 23:00 07:00 Intake Total 480 ml 360 ml 120 ml Balance 480 ml 360 ml 120 ml Current Medications: I have reviewed the current psychotropics carefully including drug interactions. Risk benefit ratio favors no change other than as noted in my dictated progress note. Diagnosis: Problems: (1) Impulse control disorder, unspecified (2) Major depressive disorder, severe (3) Anxiety disorder, unspecified MICHAEL MCKEON MD Feb 23, 2020 20:48
[2020-02-24 07:13] VITALS: BP 125/72
[2020-02-24] MEDS: POLYETHYLENE GLYCOL 3350 17 GM PACKET. PO SCH (10:20)
[2020-02-24] MEDS: ATENOLOL 50 MG TABLET PO SCH (10:21)
[2020-02-24] MEDS: SERTRALINE 25 MG TABLET. PO SCH (10:21)
[2020-02-24] MEDS: POTASSIUM CHLORIDE 20 MEQ TABLET.ER. PO SCH (10:21)
[2020-02-24] MEDS: CALCIUM CARB/VIT D3 500/200 TABLET PO SCH (10:21)
[2020-02-24] MEDS: ASPIRIN CHEWABLE 81 MG TABLET. PO SCH (10:21)
[2020-02-24] MEDS: ASCORBIC ACID 500 MG TABLET PO SCH (10:22)
[2020-02-24] MEDS: SENNOSIDES 8.6 MG TABLET PO SCH (10:22)
[2020-02-24] MEDS: NICOTINE 14MG PATCH. TD SCH (10:22)
[2020-02-24] MEDS: FLUTICASONE 50MCG/NASAL SPRAY 16GM BOTTLE. NS SCH (10:22)
[2020-02-24] MEDS: CHOLECALCIFEROL (VITAMIN D3) 1,000 UNIT TABLET PO SCH (10:22)
[2020-02-24 16:36] VITALS: BP 130/72
[2020-02-24] MEDS: ATORVASTATIN CALCIUM 10 MG TABLET. PO SCH (20:03)
[2020-02-24] MEDS: QUEtiapine 50 MG TABLET. PO SCH (20:03)
--- NOTE | 2020-02-24 20:45 | PDOC ---
Exam Note: Daren Note: Please also refer to the separate dictated note~for this date of service dictated separately.~Patient seen individually. Discussed the patient with Nursing staff reviewed the chart.~Reviewed interim history and current functioning. Reviewed vital signs,~Labs/ Radiology~and current medications noted below. Continue current treatment with the changes noted in the dictated addendum note Assessment: Vital Signs/I&O: Vital Signs Date Time Temp Pulse Resp B/P (MAP) Pulse Ox O2 Delivery O2 Flow Rate FiO2 02/24/20 16:36 98.4 60 18 130/72 (91) 96 02/21/20 15:52 Room Air I & O 02/23/20 02/23/20 02/24/20 15:00 23:00 07:00 Intake Total 805 ml 480 ml 120 ml Balance 805 ml 480 ml 120 ml Current Medications: I have reviewed the current psychotropics carefully including drug interactions. Risk benefit ratio favors no change other than as noted in my dictated progress note. Diagnosis: Problems: (1) Impulse control disorder, unspecified (2) Major depressive disorder, severe (3) Anxiety disorder, unspecified MICHAEL MCKEON MD Feb 24, 2020 20:45
[2020-02-25] MEDS: MAGNESIUM HYDROXIDE 2,400 MG/30 ML ORAL.SUSP. PO PRN (00:55)
[2020-02-25 05:55] VITALS: BP 109/66
--- NOTE | 2020-02-25 07:11 | PDOC ---
Exam Note: Daren Note: This note is a late entry for 02/23/2020 covers elements not covered in my initial note. Subjective: The patient was seen face to face in the evening of 02/23/2020 with Janeth MATIAS. Discussed with nursing staff, reviewed the chart. The patient slept 4-1/2 hours previous night. He has been pleasant, somewhat withdrawn. Denies suicidal ideation. He is compliant with his medications. He is wanting to be transitioned back to his facility. He was cooperative with physical therapy. Review of Systems: Ambulation impaired in wheelchair. No CV, , pulmonary, e ye system symptoms on review. Mental Status Exam: Reasonably oriented. I met with him in his room in the evening. Speech has some latency. Often response is monosyllabic, coherent. Abstraction is fair. Computation is impaired. Language function intact. Mood and affect is dysphoric but improved. Denies suicidal ideation. Laboratory Data: Reviewed. Impression: Major depressive disorder with psychotic features. Anxiety disorder unspecified. Impulse control disorder. Plan: No change from initial note. Assessment: Vital Signs/I&O: Vital Signs Date Time Temp Pulse Resp B/P (MAP) Pulse Ox O2 Delivery O2 Flow Rate FiO2 02/25/20 05:55 97.8 57 16 109/66 (80) 98 Room Air I & O 02/24/20 02/24/20 02/25/20 14:59 22:59 06:59 Intake Total 650 ml 480 ml Balance 650 ml 480 ml Current Medications: I have reviewed the current psychotropics carefully including drug interactions. Risk benefit ratio favors no change other than as noted in my dictated progress note. Diagnosis: Problems: (1) Impulse control disorder, unspecified (2) Major depressive disorder, severe (3) Anxiety disorder, unspecified MICHAEL MCKEON MD Feb 25, 2020 07:10
[2020-02-25 07:43] LABS: BASO % 1 % (0-3); EOS % 1 % (0-3); HEMATOCRIT 46.6 % (39.0-53.0); HEMOGLOBIN 15.6 g/dL (13.0-17.5); LYMPH % 18 % (24-48); MEAN CORPUSCULAR HEMOGLOBIN 32 pg (25-35); MEAN CORPUSCULAR HGB CONC 34 g/dL (31-37); MEAN CORPUSCULAR VOLUME 95 fL (79-100); MONO # 0.5 x10^3/uL (0.0-1.1); MONO % 9 % (0-9); NEUT # 4.2 x10^3uL (1.8-7.7); NEUT % 72 % (31-73); PLATELET COUNT 162 x10^3/uL (140-400); RED BLOOD COUNT 4.94 x10^6/uL (4.30-5.70); RED CELL DISTRIBUTION WIDTH 12.7 % (11.5-14.5); WHITE BLOOD COUNT 5.9 x10^3/uL (4.0-11.0)
[2020-02-25 07:58] LABS: ALBUMIN 3.6 g/dL (3.4-5.0); ALBUMIN/GLOBULIN RATIO 1.2 (1.0-1.7); CALCIUM 8.9 mg/dL (8.5-10.1); GFR 73.7; MAGNESIUM 2.2 mg/dL (1.8-2.4); TOTAL BILIRUBIN 0.8 mg/dL (0.2-1.0); TOTAL PROTEIN 6.6 g/dL (6.4-8.2)
[2020-02-25] MEDS: FLUTICASONE 50MCG/NASAL SPRAY 16GM BOTTLE. NS SCH (08:28)
[2020-02-25] MEDS: NICOTINE 14MG PATCH. TD SCH (08:28)
[2020-02-25] MEDS: POLYETHYLENE GLYCOL 3350 17 GM PACKET. PO SCH (08:28)
[2020-02-25] MEDS: CALCIUM CARB/VIT D3 500/200 TABLET PO SCH (08:29)
[2020-02-25] MEDS: SENNOSIDES 8.6 MG TABLET PO SCH (08:30)
[2020-02-25] MEDS: ASPIRIN CHEWABLE 81 MG TABLET. PO SCH (08:30)
[2020-02-25] MEDS: POTASSIUM CHLORIDE 20 MEQ TABLET.ER. PO SCH (08:30)
[2020-02-25] MEDS: ATENOLOL 50 MG TABLET PO SCH (08:30)
[2020-02-25] MEDS: CHOLECALCIFEROL (VITAMIN D3) 1,000 UNIT TABLET PO SCH (08:30)
[2020-02-25] MEDS: ASCORBIC ACID 500 MG TABLET PO SCH (08:30)
[2020-02-25] MEDS: SERTRALINE 100 MG TABLET. PO SCH (08:31)
[2020-02-25 16:00] VITALS: BP 119/68
[2020-02-25] MEDS: QUEtiapine 50 MG TABLET. PO SCH (19:34)
[2020-02-25] MEDS: ATORVASTATIN CALCIUM 10 MG TABLET. PO SCH (19:34)
--- NOTE | 2020-02-25 20:43 | PDOC ---
Exam Note: Daren Note: Please also refer to the separate dictated note~for this date of service dictated separately.~Patient seen individually. Discussed the patient with Nursing staff reviewed the chart.~Reviewed interim history and current functioning. Reviewed vital signs,~Labs/ Radiology~and current medications noted below. Continue current treatment with the changes noted in the dictated addendum note Assessment: Vital Signs/I&O: Vital Signs Date Time Temp Pulse Resp B/P (MAP) Pulse Ox O2 Delivery O2 Flow Rate FiO2 02/25/20 08:30 57 109/66 02/25/20 05:55 97.8 16 98 Room Air I & O 02/24/20 02/24/20 02/25/20 15:00 23:00 07:00 Intake Total 650 ml 480 ml Balance 650 ml 480 ml Labs: Laboratory Tests Test 02/25/20 07:29 White Blood Count 5.9 x10^3/uL (4.0-11.0) Red Blood Count 4.94 x10^6/uL (4.30-5.70) Hemoglobin 15.6 g/dL (13.0-17.5) Hematocrit 46.6 % (39.0-53.0) Mean Corpuscular Volume 95 fL (79-100) Mean Corpuscular Hemoglobin 32 pg (25-35) Mean Corpuscular Hemoglobin Concent 34 g/dL (31-37) Red Cell Distribution Width 12.7 % (11.5-14.5) Platelet Count 162 x10^3/uL (140-400) Neutrophils (%) (Auto) 72 % (31-73) Lymphocytes (%) (Auto) 18 % (24-48) L Monocytes (%) (Auto) 9 % (0-9) Eosinophils (%) (Auto) 1 % (0-3) Basophils (%) (Auto) 1 % (0-3) Neutrophils # (Auto) 4.2 x10^3uL (1.8-7.7) Lymphocytes # (Auto) 1.0 x10^3/uL (1.0-4.8) Monocytes # (Auto) 0.5 x10^3/uL (0.0-1.1) Eosinophils # (Auto) 0.0 x10^3/uL (0.0-0.7) Basophils # (Auto) 0.0 x10^3/uL (0.0-0.2) Sodium Level 140 mmol/L (136-145) Potassium Level 4.0 mmol/L (3.5-5.1) Chloride Level 106 mmol/L (98-107) Carbon Dioxide Level 27 mmol/L (21-32) Anion Gap 7 (6-14) Blood Urea Nitrogen 18 mg/dL (8-26) Creatinine 1.0 mg/dL (0.7-1.3) Estimated GFR (Cockcroft-Gault) 73.7 BUN/Creatinine Ratio 18 (6-20) Glucose Level 93 mg/dL (70-99) Calcium Level 8.9 mg/dL (8.5-10.1) Magnesium Level 2.2 mg/dL (1.8-2.4) Total Bilirubin 0.8 mg/dL (0.2-1.0) Aspartate Amino Transferase (AST) 11 U/L (15-37) L Alanine Aminotransferase (ALT) 12 U/L (16-63) L Alkaline Phosphatase 74 U/L (46-116) Total Protein 6.6 g/dL (6.4-8.2) Albumin 3.6 g/dL (3.4-5.0) Albumin/Globulin Ratio 1.2 (1.0-1.7) Current Medications: Meds: Current Medications Medications (Trade) Dose Ordered Sig/Daisy Route PRN Reason Start Time Stop Time Status Last Admin Dose Admin Sertraline HCl (Zoloft) 100 mg DAILY PO 02/25/20 09:00 02/25/20 08:31 I have reviewed the current psychotropics carefully including drug interactions. Risk benefit ratio favors no change other than as noted in my dictated progress note. Diagnosis: Problems: (1) Impulse control disorder, unspecified (2) Major depressive disorder, severe (3) Anxiety disorder, unspecified MICHAEL MCKEON MD Feb 25, 2020 20:43
[2020-02-26 05:51] VITALS: BP 123/75
[2020-02-26] MEDS: ASPIRIN CHEWABLE 81 MG TABLET. PO SCH (08:46)
[2020-02-26] MEDS: SERTRALINE 100 MG TABLET. PO SCH (08:46)
[2020-02-26] MEDS: CHOLECALCIFEROL (VITAMIN D3) 1,000 UNIT TABLET PO SCH (08:47)
[2020-02-26] MEDS: CALCIUM CARB/VIT D3 500/200 TABLET PO SCH (08:47)
[2020-02-26] MEDS: SENNOSIDES 8.6 MG TABLET PO SCH (08:47)
[2020-02-26] MEDS: ASCORBIC ACID 500 MG TABLET PO SCH (08:47)
[2020-02-26] MEDS: ATENOLOL 50 MG TABLET PO SCH (08:47)
[2020-02-26] MEDS: POTASSIUM CHLORIDE 20 MEQ TABLET.ER. PO SCH (08:47)
[2020-02-26] MEDS: POLYETHYLENE GLYCOL 3350 17 GM PACKET. PO SCH (08:52)
[2020-02-26] MEDS: FLUTICASONE 50MCG/NASAL SPRAY 16GM BOTTLE. NS SCH (08:52)
[2020-02-26] MEDS: NICOTINE 14MG PATCH. TD SCH (08:52)
--- NOTE | 2020-02-26 08:56 | PDOC ---
Exam Note: Daren Note: This note is a late entry for 02/24/2020 covers elements not covered in my initial note. Subjective: The patient was seen face to face in the evening of 02/24/2020 with Janeth MATIAS. Discussed with nursing staff, reviewed the chart. The patient slept 7-1/2 hours previous night. He has been withdrawn, spends much time in his room. He is fixated on wanting something to help him sleep and we will add trazodone 50 mg h.s. p.r.n. insomnia. Review of Systems: Ambulation impaired in wheelchair. No CV, , pulmonary, eye system symptoms on review. Mental Status Exam: Reasonably oriented. I met with him in his room in the evening. Speech has some latency. Often response is monosyllabic, coherent. Abstraction is fair. Computation is impaired. Language function intact. Mood and affect is withdrawn. Laboratory Data: Reviewed. Impression: Major depressive disorder with psychotic features. Anxiety disorder unspecified. Impulse control disorder. Plan: Add trazodone p.r.n. as noted. Continue rest of the psychotropics unchanged. We will increase Zoloft from 75 mg a day to 100 mg a day on 02/24. Rest unchanged. Assessment: Vital Signs/I&O: Vital Signs Date Time Temp Pulse Resp B/P (MAP) Pulse Ox O2 Delivery O2 Flow Rate FiO2 02/26/20 08:47 73 106/65 02/26/20 05:51 97.6 16 98 Room Air I & O 02/25/20 02/25/20 02/26/20 15:00 23:00 07:00 Intake Total 600 ml 240 ml Balance 600 ml 240 ml Current Medications: Meds: Current Medications Medications (Trade) Dose Ordered Sig/Daisy Route PRN Reason Start Time Stop Time Status Last Admin Dose Admin Sertraline HCl (Zoloft) 100 mg DAILY PO 02/25/20 09:00 02/26/20 08:46 I have reviewed the current psychotropics carefully including drug interactions. Risk benefit ratio favors no change other than as noted in my dictated progress note. Diagnosis: Problems: (1) Impulse control disorder, unspecified (2) Major depressive disorder, severe (3) Anxiety disorder, unspecified MICHAEL MCKEON MD Feb 26, 2020 08:56
--- NOTE | 2020-02-26 09:00 | PDOC ---
Exam Note: Daren Note: This note is a late entry for 02/25/2020 covers elements not covered in my initial note. Subjective: The patient was reviewed on telehealth rounds in the morning of 02/25/2020 for treatment team meeting with Yesica (group social worker), Nereyda, activity therapy, and Janeth MATIAS, because there was a patient who turned up positive for Covid-19 infection on the unit and the unit has been closed by the [facility] for any admissions or discharges once again. Discussed with nursing staff, reviewed the chart. The patient slept 9-1/4 hours previous night. Appetite is 75%. We had lengthy discussion about the patients diagnoses, and transitioning him back to the long term. Covid screen is completed on all staff members awaited. At times he is irritable, withdrawn. Review of Systems: Ambulation impaired in wheelchair. No CV, , pulmonary, eye system symptoms on review. Mental Status Exam: Reasonably oriented. I met with him in his room in the evening. Speech has some latency. Abstraction is fair. Computation is impaired. Language function intact. Mood and affect is still withdrawn but somewhat better. Denies suicidal or homicidal ideation. Attention span is fair. He has a rather tense facial expression typical for him. Laboratory Data: Reviewed. Impression: Major depressive disorder with psychotic features. Anxiety disorder unspecified. Impulse control disorder. Plan: Increase Zoloft to 125 mg a day after he has been on 100 for 3 days. Rest unchanged for now. Assessment: Vital Signs/I&O: Vital Signs Date Time Temp Pulse Resp B/P (MAP) Pulse Ox O2 Delivery O2 Flow Rate FiO2 02/26/20 08:47 73 106/65 02/26/20 05:51 97.6 16 98 Room Air I & O 02/25/20 02/25/20 02/26/20 15:00 23:00 07:00 Intake Total 600 ml 240 ml Balance 600 ml 240 ml Current Medications: Meds: Current Medications Medications (Trade) Dose Ordered Sig/Daisy Route PRN Reason Start Time Stop Time Status Last Admin Dose Admin Sertraline HCl (Zoloft) 100 mg DAILY PO 02/25/20 09:00 02/26/20 08:46 I have reviewed the current psychotropics carefully including drug interactions. Risk benefit ratio favors no change other than as noted in my dictated progress note. Diagnosis: Problems: (1) Impulse control disorder, unspecified (2) Major depressive disorder, severe (3) Anxiety disorder, unspecified MICHAEL MCKEON MD Feb 26, 2020 09:00
[2020-02-26 15:53] VITALS: BP 128/75
--- NOTE | 2020-02-26 18:55 | TX PLAN ---
Interdisciplinary Tx Plan Admission Information Feb 17, 2020 at 21:21 Legal Status (on Admission): Voluntary DPOA/Guardian Name: Milvia Valadez Contact Other Contact Name: Mercedes LUND Other Contact Verified Code Status: Full Code Allergies: Coded Allergies: No Known Drug Allergies (Unverified , 02/17/20) Diagnoses Primary Diagnosis: MDD Reasons for Admission: Suicidal ideation, Poor impulse control, Other Problem in Patient's Words: This is not new behaviors for him. Additional Admission Comments: According to the intake, pt is SI without a plan, feels in the dark and wants to .feels unsafe to [facility], non-compliant with meds Problems Active Problems: irritable argumentative SI no plan Inactive Problems: Medication complianct Pt Strengths/Limitations Ability for [place]: Fair Cognitive Functioning/Ability: Fair Communication Skills/Ability: Fair Financial Resources: Fair Insight/Judgement: Poor Intellectual Ability: Fair Physical Health: Poor Social Skills: Fair Stability in Family: Fair Stability in School/Work: Fair Verbal Skills: Good Discharge Criteria Discharge Criteria: Able meet basic life need, Adequate arrangements @DC, Improved behavior, Improved mood/thought Preliminary Discharge Plan Preliminary DC Plan: Assisted Living Special Precautions Fall Risk: Low Initial D/C Plan Pt to return to [facility] Identified Discharge Needs: Psychiatric care needs Currently Utilized Resources Currently Utilized Resources/P: Primary Care Physicians Identified Problems/Hx/Goals Objectives/Short-Term Goals Short Term Goals: Dec. Outbursts, Medication Stabilization, Promote Coping Skill Short Term Goals in Patient's: N/A Interventions/Frequency Staff Interventions/Frequency&: Psychiatrist to assess pt at least 3x per week for medication mgmt. Social Work to assess pt at least 2x per week for discharge plannnig and assess potential discharge barriers. Nursing to assess behaviors, monitor medication effects and complete 15 minute checks. Encourage group participation in activities (if applicable) or 1:1 engagement based off activity dept assessment. 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 Pt retired early due to "not liking people". 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 Pt is withdrawn to his room but cooperative with staff direction. Pt is compliant with cares and denying any SI. Pt will plan to return to his placement once stable. CHAVA JIANG Feb 26, 2020 18:55
[2020-02-26] MEDS: QUEtiapine 50 MG TABLET. PO SCH (20:13)
[2020-02-26] MEDS: ATORVASTATIN CALCIUM 10 MG TABLET. PO SCH (20:13)
--- NOTE | 2020-02-26 20:54 | PDOC ---
Exam Note: Daren Note: Please also refer to the separate dictated note~for this date of service dictated separately.~Patient seen individually. Discussed the patient with Nursing staff reviewed the chart.~Reviewed interim history and current functioning. Reviewed vital signs,~Labs/ Radiology~and current medications noted below. Continue current treatment with the changes noted in the dictated addendum note Assessment: Vital Signs/I&O: Vital Signs Date Time Temp Pulse Resp B/P (MAP) Pulse Ox O2 Delivery O2 Flow Rate FiO2 02/26/20 15:53 97.9 62 18 128/75 (92) 97 Room Air I & O 02/25/20 02/25/20 02/26/20 15:00 23:00 07:00 Intake Total 600 ml 240 ml Balance 600 ml 240 ml Current Medications: I have reviewed the current psychotropics carefully including drug interactions. Risk benefit ratio favors no change other than as noted in my dictated progress note. Diagnosis: Problems: (1) Impulse control disorder, unspecified (2) Major depressive disorder, severe (3) Anxiety disorder, unspecified MICHAEL MCKEON MD Feb 26, 2020 20:54
[2020-02-26] MEDS: traZODone 50 MG TABLET. PO PRN (23:52)
[2020-02-27 06:00] VITALS: BP 129/73
[2020-02-27 06:30] VITALS: BP 129/73
[2020-02-27] MEDS: POLYETHYLENE GLYCOL 3350 17 GM PACKET. PO SCH (09:50)
[2020-02-27] MEDS: FLUTICASONE 50MCG/NASAL SPRAY 16GM BOTTLE. NS SCH (09:51)
[2020-02-27] MEDS: NICOTINE 14MG PATCH. TD SCH (09:52)
[2020-02-27] MEDS: ASPIRIN CHEWABLE 81 MG TABLET. PO SCH (09:52)
[2020-02-27] MEDS: POTASSIUM CHLORIDE 20 MEQ TABLET.ER. PO SCH (09:54)
[2020-02-27] MEDS: ATENOLOL 50 MG TABLET PO SCH (09:55)
[2020-02-27] MEDS: CHOLECALCIFEROL (VITAMIN D3) 1,000 UNIT TABLET PO SCH (09:55)
[2020-02-27] MEDS: SERTRALINE 100 MG TABLET. PO SCH (09:55)
[2020-02-27] MEDS: CALCIUM CARB/VIT D3 500/200 TABLET PO SCH (09:55)
[2020-02-27] MEDS: SENNOSIDES 8.6 MG TABLET PO SCH (09:55)
[2020-02-27] MEDS: ASCORBIC ACID 500 MG TABLET PO SCH (09:55)
[2020-02-27 15:00] VITALS: BP 108/64
[2020-02-27] MEDS: QUEtiapine 50 MG TABLET. PO SCH (20:46)
[2020-02-27] MEDS: ATORVASTATIN CALCIUM 10 MG TABLET. PO SCH (20:46)
--- NOTE | 2020-02-27 21:02 | PDOC ---
Exam Note: Daren Note: Please also refer to the separate dictated note~for this date of service dictated separately.~Patient seen individually. Discussed the patient with Nursing staff reviewed the chart.~Reviewed interim history and current functioning. Reviewed vital signs,~Labs/ Radiology~and current medications noted below. Continue current treatment with the changes noted in the dictated addendum note Assessment: Vital Signs/I&O: Vital Signs Date Time Temp Pulse Resp B/P (MAP) Pulse Ox O2 Delivery O2 Flow Rate FiO2 02/27/20 15:00 97.4 66 16 108/64 (79) 97 Room Air I & O 02/26/20 02/26/20 02/27/20 15:00 23:00 07:00 Intake Total 840 ml 600 ml Balance 840 ml 600 ml Current Medications: Meds: Current Medications Medications (Trade) Dose Ordered Sig/Daisy Route PRN Reason Start Time Stop Time Status Last Admin Dose Admin Quetiapine Fumarate (SEROquel) 50 mg QHS PO 02/27/20 21:00 02/27/20 20:46 I have reviewed the current psychotropics carefully including drug interactions. Risk benefit ratio favors no change other than as noted in my dictated progress note. Diagnosis: Problems: (1) Impulse control disorder, unspecified (2) Major depressive disorder, severe (3) Anxiety disorder, unspecified MICHAEL MCKEON MD Feb 27, 2020 21:02
[2020-02-28 05:44] VITALS: BP 123/71
[2020-02-28] MEDS: POLYETHYLENE GLYCOL 3350 17 GM PACKET. PO SCH (09:00)
[2020-02-28] MEDS: ATENOLOL 50 MG TABLET PO SCH (09:00)
[2020-02-28] MEDS: CALCIUM CARB/VIT D3 500/200 TABLET PO SCH (09:08)
[2020-02-28] MEDS: FLUTICASONE 50MCG/NASAL SPRAY 16GM BOTTLE. NS SCH (09:08)
[2020-02-28] MEDS: ASPIRIN CHEWABLE 81 MG TABLET. PO SCH (09:08)
[2020-02-28] MEDS: POTASSIUM CHLORIDE 20 MEQ TABLET.ER. PO SCH (09:08)
[2020-02-28] MEDS: SERTRALINE 100 MG TABLET. PO SCH (09:09)
[2020-02-28] MEDS: SENNOSIDES 8.6 MG TABLET PO SCH (09:09)
[2020-02-28] MEDS: CHOLECALCIFEROL (VITAMIN D3) 1,000 UNIT TABLET PO SCH (09:09)
[2020-02-28] MEDS: ASCORBIC ACID 500 MG TABLET PO SCH (09:10)
[2020-02-28] MEDS: NICOTINE 14MG PATCH. TD SCH (09:10)
[2020-02-28] MEDS: DIVALPROEX 125 MG CAP.SPRINK PO SCH ×2 (09:13→17:19)
[2020-02-28] MEDS: SERTRALINE 25 MG TABLET. PO SCH (09:13)
[2020-02-28 16:16] VITALS: BP 127/78
--- NOTE | 2020-02-28 20:56 | PDOC ---
Exam Note: Daren Note: This note is a late entry for 02/26/2020 covers elements not covered in my initial note. Subjective: The patient was reviewed on telehealth rounds in the evening of 02/26/2020 with Shaquille MATIAS. Discussed with nursing staff, reviewed the chart. The patient slept 7-1/2 hours previous night. He was irritable previous night and during the day, somewhat withdrawn, anxious, restless but reasonably oriented. Review of Systems: Ambulation impaired in wheelchair. No CV, , pulmonary, eye system symptoms on review. Mental Status Exam: Reasonably oriented. He spends lot of time in his bed. Speech has some latency. Abstraction is fair. Computation is impaired. Language function intact. Mood and affect is still withdrawn but somewhat better. Denies suicidal or homicidal ideation but still is somewhat dysphoric, depressed, minimized this, anxious. Laboratory Data: Reviewed. Impression: Major depressive disorder with psychotic features. Anxiety disorder unspecified. Impulse control disorder. Plan: No change from initial note. Assessment: Vital Signs/I&O: Vital Signs Date Time Temp Pulse Resp B/P (MAP) Pulse Ox O2 Delivery O2 Flow Rate FiO2 02/28/20 16:16 97.9 72 20 127/78 (94) 98 02/27/20 15:00 Room Air I & O 02/27/20 02/27/20 02/28/20 14:59 22:59 06:59 Intake Total 960 ml 480 ml Balance 960 ml 480 ml Current Medications: Meds: Current Medications Medications (Trade) Dose Ordered Sig/Daisy Route PRN Reason Start Time Stop Time Status Last Admin Dose Admin Sertraline HCl (Zoloft) 25 mg DAILY PO 02/28/20 09:00 02/28/20 09:13 Quetiapine Fumarate (SEROquel) 50 mg QHS PO 02/27/20 21:00 02/27/20 20:46 Divalproex Sodium (Depakote Sprinkles) 125 mg 0900,1700 PO 02/28/20 09:00 02/28/20 17:19 I have reviewed the current psychotropics carefully including drug interactions. Risk benefit ratio favors no change other than as noted in my dictated progress note. Diagnosis: Problems: (1) Impulse control disorder, unspecified (2) Major depressive disorder, severe (3) Anxiety disorder, unspecified MICHAEL MCKEON MD Feb 28, 2020 20:56
[2020-02-28] MEDS: QUEtiapine 50 MG TABLET. PO SCH (21:02)
[2020-02-28] MEDS: ATORVASTATIN CALCIUM 10 MG TABLET. PO SCH (21:02)
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
--- NOTE | 2020-02-28 21:23 | PDOC ---
Exam Note: Daren Note: Please also refer to the separate dictated note~for this date of service dictated separately.~Patient seen individually. Discussed the patient with Nursing staff reviewed the chart.~Reviewed interim history and current functioning. Reviewed vital signs,~Labs/ Radiology~and current medications noted below. Continue current treatment with the changes noted in the dictated addendum note Assessment: Vital Signs/I&O: Vital Signs Date Time Temp Pulse Resp B/P (MAP) Pulse Ox O2 Delivery O2 Flow Rate FiO2 02/28/20 16:16 97.9 72 20 127/78 (94) 98 02/27/20 15:00 Room Air I & O 02/27/20 02/27/20 02/28/20 14:59 22:59 06:59 Intake Total 960 ml 480 ml Balance 960 ml 480 ml Current Medications: Meds: Current Medications Medications (Trade) Dose Ordered Sig/Daisy Route PRN Reason Start Time Stop Time Status Last Admin Dose Admin Sertraline HCl (Zoloft) 25 mg DAILY PO 02/28/20 09:00 02/28/20 09:13 Divalproex Sodium (Depakote Sprinkles) 125 mg 0900,1700 PO 02/28/20 09:00 02/28/20 17:19 I have reviewed the current psychotropics carefully including drug interactions. Risk benefit ratio favors no change other than as noted in my dictated progress note. Diagnosis: Problems: (1) Impulse control disorder, unspecified (2) Major depressive disorder, severe (3) Anxiety disorder, unspecified MICHAEL MCKEON MD Feb 28, 2020 21:23
[2020-02-29 06:05] VITALS: BP 118/66
[2020-02-29] MEDS: ASCORBIC ACID 500 MG TABLET PO SCH (07:56)
[2020-02-29] MEDS: NICOTINE 14MG PATCH. TD SCH (07:56)
[2020-02-29] MEDS: ASPIRIN CHEWABLE 81 MG TABLET. PO SCH (07:56)
[2020-02-29] MEDS: CHOLECALCIFEROL (VITAMIN D3) 1,000 UNIT TABLET PO SCH (07:57)
[2020-02-29] MEDS: DIVALPROEX 125 MG CAP.SPRINK PO SCH ×2 (07:57→16:59)
[2020-02-29] MEDS: CALCIUM CARB/VIT D3 500/200 TABLET PO SCH (07:57)
[2020-02-29] MEDS: SERTRALINE 100 MG TABLET. PO SCH (07:57)
[2020-02-29] MEDS: ATENOLOL 50 MG TABLET PO SCH (07:57)
[2020-02-29] MEDS: SERTRALINE 25 MG TABLET. PO SCH (07:57)
[2020-02-29] MEDS: POTASSIUM CHLORIDE 20 MEQ TABLET.ER. PO SCH (07:58)
[2020-02-29] MEDS: SENNOSIDES 8.6 MG TABLET PO SCH (07:58)
[2020-02-29] MEDS: POLYETHYLENE GLYCOL 3350 17 GM PACKET. PO SCH (07:58)
[2020-02-29] MEDS: FLUTICASONE 50MCG/NASAL SPRAY 16GM BOTTLE. NS SCH (08:08)
[2020-02-29 16:01] VITALS: BP 134/79
[2020-02-29] MEDS: QUEtiapine 50 MG TABLET. PO SCH (20:40)
[2020-02-29] MEDS: ATORVASTATIN CALCIUM 10 MG TABLET. PO SCH (20:40)
--- NOTE | 2020-02-29 20:45 | PDOC ---
Exam Note: Daren Note: Please also refer to the separate dictated note~for this date of service dictated separately.~Patient seen individually. Discussed the patient with Nursing staff reviewed the chart.~Reviewed interim history and current functioning. Reviewed vital signs,~Labs/ Radiology~and current medications noted below. Continue current treatment with the changes noted in the dictated addendum note Assessment: Vital Signs/I&O: Vital Signs Date Time Temp Pulse Resp B/P (MAP) Pulse Ox O2 Delivery O2 Flow Rate FiO2 02/29/20 16:01 98.2 62 16 134/79 (97) 96 02/27/20 15:00 Room Air I & O 02/28/20 02/28/20 02/29/20 15:00 23:00 07:00 Intake Total 600 ml 360 ml Balance 600 ml 360 ml Current Medications: I have reviewed the current psychotropics carefully including drug interactions. Risk benefit ratio favors no change other than as noted in my dictated progress note. Diagnosis: Problems: (1) Impulse control disorder, unspecified (2) Major depressive disorder, severe (3) Anxiety disorder, unspecified MICHAEL MCKEON MD Feb 29, 2020 20:45
[2020-03-01 06:19] VITALS: BP 119/77
--- NOTE | 2020-03-01 07:47 | PDOC ---
Exam Note: Daren Note: This note is a late entry for 02/28/2020 covers elements not covered in my initial note. Subjective: The patient was reviewed on telehealth rounds in the evening of 02/28/2020 with Tyler MATIAS. Discussed with nursing staff, reviewed the chart. He slept 7-1/4 hours previous night. Nursing staff feels he has improved since Depakote and Seroquel were added. Nursing report with Shelby MATIAS. Review of Systems: Ambulation impaired in wheelchair. No CV, , pulmonary, eye system symptoms on review. Mental Status Exam: Reasonably oriented. The patient remains somewhat anxious as I met with him in his room. He jumped out of his bed to talk to me but this is part of his somewhat over-reactivity. Speech often response is monosyllabic. Abstraction is fair. Computation is impaired. Language function intact. Mood still remains depressed. No active suicidal or homicidal ideation. Attention span is fair. Laboratory Data: Reviewed. Impression: Major depressive disorder with psychotic features. Anxiety disorder unspecified. Impulse control disorder. Plan: No change from initial note. Assessment: Vital Signs/I&O: Vital Signs Date Time Temp Pulse Resp B/P (MAP) Pulse Ox O2 Delivery O2 Flow Rate FiO2 03/01/20 06:19 98.1 58 16 119/77 (91) 97 02/27/20 15:00 Room Air I & O 02/29/20 02/29/20 03/01/20 15:00 23:00 07:00 Intake Total 720 ml 600 ml Balance 720 ml 600 ml Current Medications: I have reviewed the current psychotropics carefully including drug interactions. Risk benefit ratio favors no change other than as noted in my dictated progress note. Diagnosis: Problems: (1) Impulse control disorder, unspecified (2) Major depressive disorder, severe (3) Anxiety disorder, unspecified MICHAEL MCKEON MD Mar 01, 2020 07:47
[2020-03-01] MEDS: POLYETHYLENE GLYCOL 3350 17 GM PACKET. PO SCH (08:00)
[2020-03-01] MEDS: ASPIRIN CHEWABLE 81 MG TABLET. PO SCH (08:00)
[2020-03-01] MEDS: SERTRALINE 100 MG TABLET. PO SCH (08:01)
[2020-03-01] MEDS: CHOLECALCIFEROL (VITAMIN D3) 1,000 UNIT TABLET PO SCH (08:01)
[2020-03-01] MEDS: NICOTINE 14MG PATCH. TD SCH (08:01)
[2020-03-01] MEDS: SERTRALINE 25 MG TABLET. PO SCH (08:01)
[2020-03-01] MEDS: ASCORBIC ACID 500 MG TABLET PO SCH (08:02)
[2020-03-01] MEDS: SENNOSIDES 8.6 MG TABLET PO SCH (08:02)
[2020-03-01] MEDS: CALCIUM CARB/VIT D3 500/200 TABLET PO SCH (08:02)
[2020-03-01] MEDS: POTASSIUM CHLORIDE 20 MEQ TABLET.ER. PO SCH (08:02)
[2020-03-01] MEDS: ATENOLOL 50 MG TABLET PO SCH (08:02)
[2020-03-01] MEDS: DIVALPROEX 125 MG CAP.SPRINK PO SCH ×2 (08:02→17:27)
[2020-03-01] MEDS: FLUTICASONE 50MCG/NASAL SPRAY 16GM BOTTLE. NS SCH (08:03)
--- NOTE | 2020-03-01 08:04 | PDOC ---
Exam Note: Daren Note: This note is a late entry for 02/29/2020 covers elements not covered in my initial note. Subjective: The patient was seen face to face in the evening of 02/29/2020 with Meaghan MATIAS. Discussed with nursing staff, reviewed the chart. He slept 6-1/2 hours previous night. He spends much time in his room, trying to get out of bed on his own. Nursing report indicates that the patients Seroquel and Depakote adjustments have been of significant help. We will continue to adjust as clinically indicated. Review of Systems: Ambulation impaired in wheelchair. No CV, , pulmonary, eye system symptoms on review. Mental Status Exam: Reasonably oriented. Speech coherent. Abstraction is fair. Computation is impaired. Language function intact. Mood still remains depressed. The patient denies active suicidal or homicidal ideation. Attention span is fair. Laboratory Data: Reviewed. Impression: Major depressive disorder with psychotic features. Anxiety disorder unspecified. Impulse control disorder. Plan: Continue psychotropics unchanged. Assessment: Vital Signs/I&O: Vital Signs Date Time Temp Pulse Resp B/P (MAP) Pulse Ox O2 Delivery O2 Flow Rate FiO2 03/01/20 06:19 98.1 58 16 119/77 (91) 97 02/27/20 15:00 Room Air I & O 02/29/20 02/29/20 03/01/20 15:00 23:00 07:00 Intake Total 720 ml 600 ml Balance 720 ml 600 ml Current Medications: I have reviewed the current psychotropics carefully including drug interactions. Risk benefit ratio favors no change other than as noted in my dictated progress note. Diagnosis: Problems: (1) Impulse control disorder, unspecified (2) Major depressive disorder, severe (3) Anxiety disorder, unspecified MICHAEL MCKEON MD Mar 01, 2020 08:04
[2020-03-01 15:37] VITALS: BP 107/65
[2020-03-01] MEDS: ATORVASTATIN CALCIUM 10 MG TABLET. PO SCH (20:23)
[2020-03-01] MEDS: QUEtiapine 50 MG TABLET. PO SCH (20:23)
--- NOTE | 2020-03-01 20:59 | PDOC ---
Exam Note: Daren Note: Please also refer to the separate dictated note~for this date of service dictated separately.~Patient seen individually. Discussed the patient with Nursing staff reviewed the chart.~Reviewed interim history and current functioning. Reviewed vital signs,~Labs/ Radiology~and current medications noted below. Continue current treatment with the changes noted in the dictated addendum note Assessment: Vital Signs/I&O: Vital Signs Date Time Temp Pulse Resp B/P (MAP) Pulse Ox O2 Delivery O2 Flow Rate FiO2 03/01/20 15:37 97.3 60 20 107/65 (79) 98 02/27/20 15:00 Room Air I & O 02/29/20 02/29/20 03/01/20 15:00 23:00 07:00 Intake Total 720 ml 600 ml Balance 720 ml 600 ml Current Medications: I have reviewed the current psychotropics carefully including drug interactions. Risk benefit ratio favors no change other than as noted in my dictated progress note. Diagnosis: Problems: (1) Impulse control disorder, unspecified (2) Major depressive disorder, severe (3) Anxiety disorder, unspecified MICHAEL MCKEON MD Mar 01, 2020 20:59
[2020-03-02 06:33] VITALS: BP 113/68
[2020-03-02 07:18] LABS: BASO % 1 % (0-3); EOS % 1 % (0-3); HEMATOCRIT 45.9 % (39.0-53.0); HEMOGLOBIN 15.3 g/dL (13.0-17.5); LYMPH # 1.2 x10^3/uL (1.0-4.8); LYMPH % 17 % (24-48); MEAN CORPUSCULAR HEMOGLOBIN 32 pg (25-35); MEAN CORPUSCULAR HGB CONC 33 g/dL (31-37); MEAN CORPUSCULAR VOLUME 95 fL (79-100); MONO # 0.6 x10^3/uL (0.0-1.1); MONO % 8 % (0-9); NEUT # 5.3 x10^3uL (1.8-7.7); NEUT % 74 % (31-73); PLATELET COUNT 153 x10^3/uL (140-400); RED BLOOD COUNT 4.85 x10^6/uL (4.30-5.70); RED CELL DISTRIBUTION WIDTH 12.7 % (11.5-14.5); WHITE BLOOD COUNT 7.1 x10^3/uL (4.0-11.0)
[2020-03-02 07:51] LABS: ALBUMIN 3.6 g/dL (3.4-5.0); ALBUMIN/GLOBULIN RATIO 1.2 (1.0-1.7); ALK PHOS 73 U/L (46-116); ALT (SGPT) 15 U/L (16-63); ANION GAP 10 (6-14); AST (SGOT) 12 U/L (15-37); BLOOD UREA NITROGEN 16 mg/dL (8-26); BUN/CREATININE RATIO 18 (6-20); CARBON DIOXIDE 27 mmol/L (21-32); CHLORIDE 104 mmol/L (98-107); CREATININE 0.9 mg/dL (0.7-1.3); GFR 83.2; GLUCOSE 86 mg/dL (70-99); SODIUM 141 mmol/L (136-145); TOTAL BILIRUBIN 0.7 mg/dL (0.2-1.0); TOTAL PROTEIN 6.5 g/dL (6.4-8.2)
[2020-03-02 07:56] LABS: VAL ACID 23 mcg/mL (50-100)
[2020-03-02] MEDS: DIVALPROEX 125 MG CAP.SPRINK PO SCH ×2 (07:58→17:08)
[2020-03-02] MEDS: NICOTINE 14MG PATCH. TD SCH (07:58)
[2020-03-02] MEDS: POTASSIUM CHLORIDE 20 MEQ TABLET.ER. PO SCH (07:58)
[2020-03-02] MEDS: SERTRALINE 100 MG TABLET. PO SCH (07:59)
[2020-03-02] MEDS: ATENOLOL 50 MG TABLET PO SCH (07:59)
[2020-03-02] MEDS: SENNOSIDES 8.6 MG TABLET PO SCH (07:59)
[2020-03-02] MEDS: ASPIRIN CHEWABLE 81 MG TABLET. PO SCH (07:59)
[2020-03-02] MEDS: SERTRALINE 25 MG TABLET. PO SCH (07:59)
[2020-03-02] MEDS: ASCORBIC ACID 500 MG TABLET PO SCH (07:59)
[2020-03-02] MEDS: POLYETHYLENE GLYCOL 3350 17 GM PACKET. PO SCH (07:59)
[2020-03-02] MEDS: CHOLECALCIFEROL (VITAMIN D3) 1,000 UNIT TABLET PO SCH (07:59)
[2020-03-02] MEDS: CALCIUM CARB/VIT D3 500/200 TABLET PO SCH (07:59)
[2020-03-02] MEDS: FLUTICASONE 50MCG/NASAL SPRAY 16GM BOTTLE. NS SCH (08:01)
[2020-03-02 15:25] VITALS: BP 159/68
[2020-03-02] MEDS: QUEtiapine 50 MG TABLET. PO SCH (20:31)
[2020-03-02] MEDS: ATORVASTATIN CALCIUM 10 MG TABLET. PO SCH (20:31)
--- NOTE | 2020-03-02 20:56 | PDOC ---
Exam Note: Daren Note: Please also refer to the separate dictated note~for this date of service dictated separately.~Patient seen individually. Discussed the patient with Nursing staff reviewed the chart.~Reviewed interim history and current functioning. Reviewed vital signs,~Labs/ Radiology~and current medications noted below. Continue current treatment with the changes noted in the dictated addendum note Assessment: Vital Signs/I&O: Vital Signs Date Time Temp Pulse Resp B/P (MAP) Pulse Ox O2 Delivery O2 Flow Rate FiO2 03/02/20 15:25 98.1 62 18 159/68 (98) 97 Room Air I & O 03/01/20 03/01/20 03/02/20 15:00 23:00 07:00 Intake Total 600 ml 360 ml Balance 600 ml 360 ml Labs: Laboratory Tests Test 03/02/20 06:45 White Blood Count 7.1 x10^3/uL (4.0-11.0) Red Blood Count 4.85 x10^6/uL (4.30-5.70) Hemoglobin 15.3 g/dL (13.0-17.5) Hematocrit 45.9 % (39.0-53.0) Mean Corpuscular Volume 95 fL (79-100) Mean Corpuscular Hemoglobin 32 pg (25-35) Mean Corpuscular Hemoglobin Concent 33 g/dL (31-37) Red Cell Distribution Width 12.7 % (11.5-14.5) Platelet Count 153 x10^3/uL (140-400) Neutrophils (%) (Auto) 74 % (31-73) H Lymphocytes (%) (Auto) 17 % (24-48) L Monocytes (%) (Auto) 8 % (0-9) Eosinophils (%) (Auto) 1 % (0-3) Basophils (%) (Auto) 1 % (0-3) Neutrophils # (Auto) 5.3 x10^3uL (1.8-7.7) Lymphocytes # (Auto) 1.2 x10^3/uL (1.0-4.8) Monocytes # (Auto) 0.6 x10^3/uL (0.0-1.1) Eosinophils # (Auto) 0.0 x10^3/uL (0.0-0.7) Basophils # (Auto) 0.0 x10^3/uL (0.0-0.2) Sodium Level 141 mmol/L (136-145) Potassium Level 4.0 mmol/L (3.5-5.1) Chloride Level 104 mmol/L (98-107) Carbon Dioxide Level 27 mmol/L (21-32) Anion Gap 10 (6-14) Blood Urea Nitrogen 16 mg/dL (8-26) Creatinine 0.9 mg/dL (0.7-1.3) Estimated GFR (Cockcroft-Gault) 83.2 BUN/Creatinine Ratio 18 (6-20) Glucose Level 86 mg/dL (70-99) Calcium Level 9.0 mg/dL (8.5-10.1) Total Bilirubin 0.7 mg/dL (0.2-1.0) Aspartate Amino Transferase (AST) 12 U/L (15-37) L Alanine Aminotransferase (ALT) 15 U/L (16-63) L Alkaline Phosphatase 73 U/L (46-116) Total Protein 6.5 g/dL (6.4-8.2) Albumin 3.6 g/dL (3.4-5.0) Albumin/Globulin Ratio 1.2 (1.0-1.7) Valproic Acid Level 23 mcg/mL (50-100) L Valproic Acid Last Dose Date 03/01/20 Valproic Acid Last Dose Time 1700 Current Medications: I have reviewed the current psychotropics carefully including drug interactions. Risk benefit ratio favors no change other than as noted in my dictated progress note. Diagnosis: Problems: (1) Impulse control disorder, unspecified (2) Major depressive disorder, severe (3) Anxiety disorder, unspecified MICHAEL MCKEON MD Mar 02, 2020 20:56
[2020-03-03] MEDS: POLYETHYLENE GLYCOL 3350 17 GM PACKET. PO SCH (04:19)
[2020-03-03] MEDS: NICOTINE 14MG PATCH. TD SCH (04:20)
[2020-03-03] MEDS: POTASSIUM CHLORIDE 20 MEQ TABLET.ER. PO SCH (04:20)
[2020-03-03] MEDS: SERTRALINE 25 MG TABLET. PO SCH (04:20)
[2020-03-03] MEDS: CHOLECALCIFEROL (VITAMIN D3) 1,000 UNIT TABLET PO SCH (04:20)
[2020-03-03] MEDS: CALCIUM CARB/VIT D3 500/200 TABLET PO SCH (04:20)
[2020-03-03] MEDS: DIVALPROEX 125 MG CAP.SPRINK PO SCH ×2 (04:21→17:10)
[2020-03-03] MEDS: SENNOSIDES 8.6 MG TABLET PO SCH (04:21)
[2020-03-03] MEDS: ASPIRIN CHEWABLE 81 MG TABLET. PO SCH (04:21)
[2020-03-03] MEDS: ASCORBIC ACID 500 MG TABLET PO SCH (04:21)
[2020-03-03] MEDS: SERTRALINE 100 MG TABLET. PO SCH (04:21)
[2020-03-03] MEDS: ATENOLOL 50 MG TABLET PO SCH ×2 (04:22→07:17)
[2020-03-03] MEDS: FLUTICASONE 50MCG/NASAL SPRAY 16GM BOTTLE. NS SCH (04:25)
[2020-03-03 04:34] VITALS: BP 107/64
--- NOTE | 2020-03-03 07:56 | PDOC ---
Exam Note: Daren Note: This note is a late entry for 03/01/2020 covers elements not covered in my initial note. Subjective: The patient was seen face to face in the evening of 03/01/2020 with Shaquille MATIAS. Discussed with nursing staff, reviewed the chart. He slept 6-1/2 hours previous night. He is compliant with his medications. Review of Systems: Ambulation impaired in wheelchair. No CV, , pulmonary, eye system symptoms on review. Mental Status Exam: Reasonably oriented. I met with him in his room. He was a little more verbal, interactive, thoroughly denies suicidal ideation, slightly hard of hearing. Attention span is short. Mood he subjectively states if he is less depressed. Abstraction is fair. Computation is impaired. Language function intact. Laboratory Data: Reviewed. Impression: Major depressive disorder with psychotic features. Anxiety disorder unspecified. Impulse control disorder. Plan: Continue psychotropics unchanged. Assessment: Vital Signs/I&O: Vital Signs Date Time Temp Pulse Resp B/P (MAP) Pulse Ox O2 Delivery O2 Flow Rate FiO2 03/03/20 07:17 53 107/64 03/03/20 04:34 97.5 18 97 Room Air I & O 03/02/20 03/02/20 03/03/20 15:00 23:00 07:00 Intake Total 600 ml 360 ml Output Total 425 ml Balance 600 ml 360 ml -425 ml Current Medications: I have reviewed the current psychotropics carefully including drug interactions. Risk benefit ratio favors no change other than as noted in my dictated progress note. Diagnosis: Problems: (1) Impulse control disorder, unspecified (2) Major depressive disorder, severe (3) Anxiety disorder, unspecified MICHAEL MCKEON MD Mar 03, 2020 07:56
--- NOTE | 2020-03-03 08:12 | PDOC ---
Exam Note: Daren Note: This note is a late entry for 03/02/2020 covers elements not covered in my initial note. Subjective: The patient was seen face to face in the evening of 03/02/2020 with Meaghan MATIAS. Discussed with nursing staff, reviewed the chart. He slept 5-1/4 hours previous night. Overall the patient remains withdrawn. Denies suicidal ideation. Remains anxious. As I met with him in the evening he was trying to get out of bed and is a fall risk. Denies suicidal ideation. Review of Systems: Ambulation impaired in wheelchair. No CV, , pulmonary, eye system symptoms on review. Mental Status Exam: Reasonably oriented. Speech is coherent, has some latency. Abstraction is fair. Computation is impaired. Language function intact. Attention span is short. Mood and affect withdrawn. Laboratory Data: Reviewed. Impression: Major depressive disorder with psychotic features. Anxiety disorder unspecified. Impulse control disorder. Plan: No change from initial note. Assessment: Vital Signs/I&O: Vital Signs Date Time Temp Pulse Resp B/P (MAP) Pulse Ox O2 Delivery O2 Flow Rate FiO2 03/03/20 07:17 53 107/64 03/03/20 04:34 97.5 18 97 Room Air I & O 03/02/20 03/02/20 03/03/20 15:00 23:00 07:00 Intake Total 600 ml 360 ml Output Total 425 ml Balance 600 ml 360 ml -425 ml Current Medications: I have reviewed the current psychotropics carefully including drug interactions. Risk benefit ratio favors no change other than as noted in my dictated progress note. Diagnosis: Problems: (1) Impulse control disorder, unspecified (2) Major depressive disorder, severe (3) Anxiety disorder, unspecified MICHAEL MCKEON MD Mar 03, 2020 08:12
--- NOTE | 2020-03-03 11:13 | TX PLAN ---
Interdisciplinary Tx Plan Admission Information Feb 17, 2020 at 21:21 Legal Status (on Admission): Voluntary DPOA/Guardian Name: Milvia Valadez Contact Other Contact Name: Mercedes LUND Other Contact Verified Code Status: Full Code Allergies: Coded Allergies: No Known Drug Allergies (Unverified , 02/17/20) Diagnoses Primary Diagnosis: MDD Reasons for Admission: Suicidal ideation, Poor impulse control, Other Problem in Patient's Words: This is not new behaviors for him. Additional Admission Comments: According to the intake, pt is SI without a plan, feels in the dark and wants to .feels unsafe to return to [facility], non-compliant with meds Problems Active Problems: irritable argumentative SI no plan Inactive Problems: Medication complianct Pt Strengths/Limitations Ability for [place]: Fair Cognitive Functioning/Ability: Fair Communication Skills/Ability: Fair Financial Resources: Fair Insight/Judgement: Poor Intellectual Ability: Fair Physical Health: Poor Social Skills: Fair Stability in Family: Fair Stability in School/Work: Fair Verbal Skills: Good Discharge Criteria Discharge Criteria: Able meet basic life need, Adequate arrangements @DC, Improved behavior, Improved mood/thought Preliminary Discharge Plan Preliminary DC Plan: Assisted Living Special Precautions Fall Risk: Low Initial D/C Plan Pt to return to [facility] Identified Discharge Needs: Psychiatric care needs Currently Utilized Resources Currently Utilized Resources/P: Primary Care Physicians Identified Problems/Hx/Goals Objectives/Short-Term Goals Short Term Goals: Dec. Outbursts, Medication Stabilization, Promote Coping Skill Short Term Goals in Patient's: N/A Interventions/Frequency Staff Interventions/Frequency&: Psychiatrist to assess pt at least 3x per week for medication mgmt. Social Work to assess pt at least 2x per week for discharge plannnig and assess potential discharge barriers. Nursing to assess behaviors, monitor medication effects and complete 15 minute checks. Encourage group participation in activities (if applicable) or 1:1 engagement based off activity dept assessment. 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 Pt retired early due to "not liking people". Education: Pt graduated HS 12th grade Community Follow-up Primary care Physician Treatment Plan Explained Patient/Eap Specialist had this treatment plan explained to him/her as indicated by the signature below and has been given the opportunity to ask questions and make suggestions: Date: Patient/Eap Specialist Signature: Status Update Update WEEKLY UPDATE/NOTE: Marcello is averaging seven hours of sleep at night and 75% of meal intakes. His mood has improved and he has been pleasant with care and during interactions with others. Depakote will be increased to 250mg BID with a VPA in three days. Tentative discharge will be on 03/07/20. Nurse reports she will fax prescriptions to PCP today in preparation for d/c on 03/07/20. This SW is filling in for JESSIE Fatima who has followed Marcello shirley, as of this date. Will proceed with d/c planning. ELIO SOLORIO Mar 03, 2020 11:13
[2020-03-03 16:14] VITALS: BP 132/76
[2020-03-03] MEDS: ATORVASTATIN CALCIUM 10 MG TABLET. PO SCH (19:57)
[2020-03-03] MEDS: QUEtiapine 50 MG TABLET. PO SCH (19:57)
--- NOTE | 2020-03-03 20:52 | PDOC ---
Exam Note: Daren Note: Please also refer to the separate dictated note~for this date of service dictated separately.~Patient seen individually. Discussed the patient with Nursing staff reviewed the chart.~Reviewed interim history and current functioning. Reviewed vital signs,~Labs/ Radiology~and current medications noted below. Continue current treatment with the changes noted in the dictated addendum note Assessment: Vital Signs/I&O: Vital Signs Date Time Temp Pulse Resp B/P (MAP) Pulse Ox O2 Delivery O2 Flow Rate FiO2 03/03/20 16:14 97.6 63 19 132/76 (94) 98 03/03/20 04:34 Room Air I & O 03/02/20 03/02/20 03/03/20 14:59 22:59 06:59 Intake Total 600 ml 360 ml Output Total 425 ml Balance 600 ml 360 ml -425 ml Current Medications: Meds: Current Medications Medications (Trade) Dose Ordered Sig/Daisy Route PRN Reason Start Time Stop Time Status Last Admin Dose Admin Divalproex Sodium (Depakote Sprinkles) 250 mg 0900,1700 PO 03/03/20 17:00 03/03/20 17:10 I have reviewed the current psychotropics carefully including drug interactions. Risk benefit ratio favors no change other than as noted in my dictated progress note. Diagnosis: Problems: (1) Impulse control disorder, unspecified (2) Major depressive disorder, severe (3) Anxiety disorder, unspecified MICHAEL MCKEON MD Mar 03, 2020 20:52
[2020-03-04 06:03] VITALS: BP 117/66
[2020-03-04] MEDS: NICOTINE 14MG PATCH. TD SCH (08:52)
[2020-03-04] MEDS: DIVALPROEX 125 MG CAP.SPRINK PO SCH ×2 (08:53→17:04)
[2020-03-04] MEDS: SERTRALINE 100 MG TABLET. PO SCH (08:53)
[2020-03-04] MEDS: ASPIRIN CHEWABLE 81 MG TABLET. PO SCH (08:53)
[2020-03-04] MEDS: ASCORBIC ACID 500 MG TABLET PO SCH (08:53)
[2020-03-04] MEDS: SERTRALINE 25 MG TABLET. PO SCH (08:53)
[2020-03-04] MEDS: CHOLECALCIFEROL (VITAMIN D3) 1,000 UNIT TABLET PO SCH (08:53)
[2020-03-04] MEDS: ATENOLOL 50 MG TABLET PO SCH (08:53)
[2020-03-04] MEDS: CALCIUM CARB/VIT D3 500/200 TABLET PO SCH (08:53)
[2020-03-04] MEDS: SENNOSIDES 8.6 MG TABLET PO SCH (08:54)
[2020-03-04] MEDS: POLYETHYLENE GLYCOL 3350 17 GM PACKET. PO SCH (08:54)
[2020-03-04] MEDS: POTASSIUM CHLORIDE 20 MEQ TABLET.ER. PO SCH (08:54)
[2020-03-04] MEDS: FLUTICASONE 50MCG/NASAL SPRAY 16GM BOTTLE. NS SCH (12:48)
[2020-03-04 15:00] VITALS: BP 143/64
[2020-03-04] MEDS: QUEtiapine 50 MG TABLET. PO SCH (20:26)
[2020-03-04] MEDS: ATORVASTATIN CALCIUM 10 MG TABLET. PO SCH (20:26)
[2020-03-04] MEDS: traZODone 50 MG TABLET. PO PRN (20:26)
--- NOTE | 2020-03-04 21:03 | PDOC ---
Exam Note: Daren Note: Please also refer to the separate dictated note~for this date of service dictated separately.~Patient seen individually. Discussed the patient with Nursing staff reviewed the chart.~Reviewed interim history and current functioning. Reviewed vital signs,~Labs/ Radiology~and current medications noted below. Continue current treatment with the changes noted in the dictated addendum note Assessment: Vital Signs/I&O: Vital Signs Date Time Temp Pulse Resp B/P (MAP) Pulse Ox O2 Delivery O2 Flow Rate FiO2 03/04/20 15:00 98.0 67 20 143/64 (90) 97 Room Air I & O 03/03/20 03/03/20 03/04/20 15:00 23:00 07:00 Intake Total 565 ml 120 ml Balance 565 ml 120 ml Current Medications: I have reviewed the current psychotropics carefully including drug interactions. Risk benefit ratio favors no change other than as noted in my dictated progress note. Diagnosis: Problems: (1) Impulse control disorder, unspecified (2) Major depressive disorder, severe (3) Anxiety disorder, unspecified MICHAEL MCKEON MD Mar 04, 2020 21:03
[2020-03-05 06:30] VITALS: BP 106/66
--- NOTE | 2020-03-05 07:03 | PDOC ---
Exam Note: Daren Note: This note is a late entry for 03/03/2020 covers elements not covered in my initial note. Subjective: The patient was seen face to face in the morning of 03/03/2020 for treatment team meeting with Amanda Mobley and Maria Esther (director social staff), Nereyda, Activity Therapy and Meaghan MATIAS. Discussed with nursing staff, reviewed the chart. He slept 6-3/4 hours previous night. The patient remains somewhat withdrawn. He spends much time in his room. Reviewed his history from the assisted living. He was quite labile in his mood at the facility. He has done better here but has a history of mood swings and we are going to increase the Depakote to 250 mg twice a day since the level was subtherapeutic at 23 on 125 mg twice a day. Review of Systems: Ambulation impaired in wheelchair. No CV, , pulmonary, eye system symptoms on review. Mental Status Exam: Reasonably oriented. He was a little more interactive, sat on the side of his bed talking to me. Denies suicidal or homicidal ideation. He remains withdrawn but less depressed. Language function intact. Attention span is short. Mood and affect withdrawn. Laboratory Data: Reviewed. Impression: Major depressive disorder with psychotic features. Anxiety disorder unspecified. Impulse control disorder. Plan: No change from initial note. Assessment: Vital Signs/I&O: Vital Signs Date Time Temp Pulse Resp B/P (MAP) Pulse Ox O2 Delivery O2 Flow Rate FiO2 03/05/20 06:30 98.3 54 16 106/66 (79) 98 Room Air I & O 03/04/20 03/04/20 03/05/20 14:59 22:59 06:59 Intake Total 600 ml 240 ml Balance 600 ml 240 ml Current Medications: I have reviewed the current psychotropics carefully including drug interactions. Risk benefit ratio favors no change other than as noted in my dictated progress note. Diagnosis: Problems: (1) Impulse control disorder, unspecified (2) Major depressive disorder, severe (3) Anxiety disorder, unspecified MICHAEL MCKEON MD Mar 05, 2020 07:03
--- NOTE | 2020-03-05 07:22 | PDOC ---
Exam Note: Daren Note: This note is a late entry for 03/04/2020 covers elements not covered in my initial note. Subjective: The patient was seen on telehealth rounds in the evening of 03/04/2020 with Shaquille MATIAS. Discussed with nursing staff, reviewed the chart. He slept 6 hours previous night. He has been pleasant, calmer, agitated, anxious at times, feels people are pushing him around. Review of Systems: Ambulation impaired in wheelchair. No CV, , pulmonary, eye system symptoms on review. Mental Status Exam: Reasonably oriented. I met with him on telehealth rounds. He is little more interactive, verbal, pleasant. Denies suicidal ideation. Speech is coherent, has some latency. Abstraction is fair. Computation is impaired. Language function intact. Attention span is short. Mood and affect withdrawn. Laboratory Data: Reviewed. Impression: Major depressive disorder with psychotic features. Anxiety disorder unspecified. Impulse control disorder. Plan: No change from initial note. Assessment: Vital Signs/I&O: Vital Signs Date Time Temp Pulse Resp B/P (MAP) Pulse Ox O2 Delivery O2 Flow Rate FiO2 03/05/20 06:30 98.3 54 16 106/66 (79) 98 Room Air I & O 03/04/20 03/04/20 03/05/20 15:00 23:00 07:00 Intake Total 600 ml 240 ml Balance 600 ml 240 ml Current Medications: I have reviewed the current psychotropics carefully including drug interactions. Risk benefit ratio favors no change other than as noted in my dictated progress note. Diagnosis: Problems: (1) Impulse control disorder, unspecified (2) Major depressive disorder, severe (3) Anxiety disorder, unspecified MICHAEL MCKEON MD Mar 05, 2020 07:22
[2020-03-05] MEDS: FLUTICASONE 50MCG/NASAL SPRAY 16GM BOTTLE. NS SCH (09:50)
[2020-03-05] MEDS: ASPIRIN CHEWABLE 81 MG TABLET. PO SCH (09:50)
[2020-03-05] MEDS: DIVALPROEX 125 MG CAP.SPRINK PO SCH ×2 (09:50→17:39)
[2020-03-05] MEDS: CALCIUM CARB/VIT D3 500/200 TABLET PO SCH (09:51)
[2020-03-05] MEDS: SENNOSIDES 8.6 MG TABLET PO SCH (09:51)
[2020-03-05] MEDS: POTASSIUM CHLORIDE 20 MEQ TABLET.ER. PO SCH (09:51)
[2020-03-05] MEDS: POLYETHYLENE GLYCOL 3350 17 GM PACKET. PO SCH (09:51)
[2020-03-05] MEDS: ATENOLOL 50 MG TABLET PO SCH (09:53)
[2020-03-05] MEDS: SERTRALINE 25 MG TABLET. PO SCH (09:54)
[2020-03-05] MEDS: NICOTINE 14MG PATCH. TD SCH (09:54)
[2020-03-05] MEDS: ASCORBIC ACID 500 MG TABLET PO SCH (09:54)
[2020-03-05] MEDS: SERTRALINE 100 MG TABLET. PO SCH (09:54)
[2020-03-05] MEDS: CHOLECALCIFEROL (VITAMIN D3) 1,000 UNIT TABLET PO SCH (09:54)
[2020-03-05 15:57] VITALS: BP 116/65
[2020-03-05] MEDS: ATORVASTATIN CALCIUM 10 MG TABLET. PO SCH (20:00)
[2020-03-05] MEDS: QUEtiapine 50 MG TABLET. PO SCH (20:00)
[2020-03-05] MEDS: traZODone 50 MG TABLET. PO PRN (20:00)
--- NOTE | 2020-03-05 21:05 | PDOC ---
Exam Note: Daren Note: Please also refer to the separate dictated note~for this date of service dictated separately.~Patient seen individually. Discussed the patient with Nursing staff reviewed the chart.~Reviewed interim history and current functioning. Reviewed vital signs,~Labs/ Radiology~and current medications noted below. Continue current treatment with the changes noted in the dictated addendum note Assessment: Vital Signs/I&O: Vital Signs Date Time Temp Pulse Resp B/P (MAP) Pulse Ox O2 Delivery O2 Flow Rate FiO2 03/05/20 15:57 98.0 67 16 116/65 (82) 97 03/05/20 06:30 Room Air I & O 03/04/20 03/04/20 03/05/20 15:00 23:00 07:00 Intake Total 600 ml 240 ml Balance 600 ml 240 ml Current Medications: I have reviewed the current psychotropics carefully including drug interactions. Risk benefit ratio favors no change other than as noted in my dictated progress note. Diagnosis: Problems: (1) Impulse control disorder, unspecified (2) Major depressive disorder, severe (3) Anxiety disorder, unspecified MICHAEL MCKEON MD Mar 05, 2020 21:05
[2020-03-05] MEDS ORDERED: CYAN100031 PO (22:49)
[2020-03-05] MEDS ORDERED: DIVA125C2 PO (22:52)
[2020-03-05] MEDS ORDERED: FLUT16SP21 NS (22:54)
[2020-03-05] MEDS ORDERED: NICO1PAT25 TD (22:55)
[2020-03-05] MEDS ORDERED: SENN8.6T99 PO (23:04)
[2020-03-05] MEDS ORDERED: SERT100T PO (23:07)
[2020-03-05] MEDS ORDERED: SERT50TA PO (23:08)
[2020-03-05] MEDS ORDERED: TRAZ-120 PO (23:15)
[2020-03-06 05:48] VITALS: BP 104/61
[2020-03-06] MEDS: CALCIUM CARB/VIT D3 500/200 TABLET PO SCH (09:19)
[2020-03-06] MEDS: ASPIRIN CHEWABLE 81 MG TABLET. PO SCH (09:19)
[2020-03-06] MEDS: POLYETHYLENE GLYCOL 3350 17 GM PACKET. PO SCH (09:19)
[2020-03-06] MEDS: DIVALPROEX 125 MG CAP.SPRINK PO SCH ×2 (09:19→17:35)
[2020-03-06] MEDS: POTASSIUM CHLORIDE 20 MEQ TABLET.ER. PO SCH (09:19)
[2020-03-06] MEDS: FLUTICASONE 50MCG/NASAL SPRAY 16GM BOTTLE. NS SCH (09:19)
[2020-03-06] MEDS: SENNOSIDES 8.6 MG TABLET PO SCH (09:20)
[2020-03-06] MEDS: NICOTINE 14MG PATCH. TD SCH (09:22)
[2020-03-06] MEDS: CHOLECALCIFEROL (VITAMIN D3) 1,000 UNIT TABLET PO SCH (09:22)
[2020-03-06] MEDS: SERTRALINE 25 MG TABLET. PO SCH (09:22)
[2020-03-06] MEDS: ATENOLOL 50 MG TABLET PO SCH (09:22)
[2020-03-06] MEDS: ASCORBIC ACID 500 MG TABLET PO SCH (09:22)
[2020-03-06] MEDS: SERTRALINE 100 MG TABLET. PO SCH (09:22)
[2020-03-06 15:00] VITALS: BP 114/69
[2020-03-06] MEDS: ATORVASTATIN CALCIUM 10 MG TABLET. PO SCH (19:44)
[2020-03-06] MEDS: traZODone 50 MG TABLET. PO PRN (19:44)
[2020-03-06] MEDS: QUEtiapine 50 MG TABLET. PO SCH (19:44)
--- NOTE | 2020-03-06 20:47 | PDOC ---
Exam Note: Daren Note: Please also refer to the separate dictated note~for this date of service dictated separately.~Patient seen individually. Discussed the patient with Nursing staff reviewed the chart.~Reviewed interim history and current functioning. Reviewed vital signs,~Labs/ Radiology~and current medications noted below. Continue current treatment with the changes noted in the dictated addendum note Assessment: Vital Signs/I&O: Vital Signs Date Time Temp Pulse Resp B/P (MAP) Pulse Ox O2 Delivery O2 Flow Rate FiO2 03/06/20 15:00 98.4 54 12 114/69 (84) 100 Room Air I & O 03/05/20 03/05/20 03/06/20 15:00 23:00 07:00 Intake Total 840 ml 600 ml Balance 840 ml 600 ml Current Medications: I have reviewed the current psychotropics carefully including drug interactions. Risk benefit ratio favors no change other than as noted in my dictated progress note. Diagnosis: Problems: (1) Impulse control disorder, unspecified (2) Major depressive disorder, severe (3) Anxiety disorder, unspecified MICHAEL MCKEON MD Mar 06, 2020 20:47
[2020-03-07 05:58] VITALS: BP 144/69
[2020-03-07 06:52] LABS: BASO % 1 % (0-3); EOS # 0.1 x10^3/uL (0.0-0.7); EOS % 1 % (0-3); HEMOGLOBIN 15.2 g/dL (13.0-17.5); LYMPH # 1.2 x10^3/uL (1.0-4.8); LYMPH % 20 % (24-48); MEAN CORPUSCULAR HEMOGLOBIN 32 pg (25-35); MEAN CORPUSCULAR HGB CONC 34 g/dL (31-37); MEAN CORPUSCULAR VOLUME 95 fL (79-100); MONO # 0.5 x10^3/uL (0.0-1.1); MONO % 9 % (0-9); NEUT # 4.1 x10^3uL (1.8-7.7); NEUT % 70 % (31-73); PLATELET COUNT 130 x10^3/uL (140-400); RED BLOOD COUNT 4.72 x10^6/uL (4.30-5.70); WHITE BLOOD COUNT 5.8 x10^3/uL (4.0-11.0)
[2020-03-07 07:01] LABS: ALBUMIN 3.4 g/dL (3.4-5.0); ALBUMIN/GLOBULIN RATIO 1.3 (1.0-1.7); ALK PHOS 69 U/L (46-116); ALT (SGPT) 15 U/L (16-63); ANION GAP 6 (6-14); AST (SGOT) 12 U/L (15-37); BLOOD UREA NITROGEN 20 mg/dL (8-26); BUN/CREATININE RATIO 20 (6-20); CALCIUM 8.8 mg/dL (8.5-10.1); CARBON DIOXIDE 30 mmol/L (21-32); CHLORIDE 108 mmol/L (98-107); GFR 73.5; GLUCOSE 82 mg/dL (70-99); POTASSIUM 4.5 mmol/L (3.5-5.1); SODIUM 144 mmol/L (136-145); TOTAL BILIRUBIN 0.4 mg/dL (0.2-1.0); TOTAL PROTEIN 6.1 g/dL (6.4-8.2)
[2020-03-07 07:04] LABS: VAL ACID 51 mcg/mL (50-100)
--- NOTE | 2020-03-07 07:33 | PDOC ---
Exam Note: Daren Note: This note is a late entry for 03/05/2020 covers elements not covered in my initial note. Subjective: The patient was seen on telehealth rounds in the evening of 03/05/2020 with Shelby MATIAS. Discussed with nursing staff, reviewed the chart. He slept 7 hours previous night. Overall the patient is better, little more interactive, still spends much time in his room. Denies suicidal ideation. Review of Systems: Ambulation impaired in wheelchair. No CV, , pulmonary, eye system symptoms on review. Mental Status Exam: Reasonably oriented. I met with him on telehealth rounds. Speech often verbal response is monosyllabic. He thoroughly denies suicidal ideation as I questioned him. Abstraction is fair. Computation is impaired. Language function intact. Attention span is short. Mood and affect withdrawn. Laboratory Data: Reviewed. Impression: Major depressive disorder with psychotic features. Anxiety disorder unspecified. Impulse control disorder. Plan: No change from initial note. Assessment: Vital Signs/I&O: Vital Signs Date Time Temp Pulse Resp B/P (MAP) Pulse Ox O2 Delivery O2 Flow Rate FiO2 03/07/20 05:58 97.8 55 16 144/69 (94) 97 03/06/20 15:00 Room Air I & O 03/06/20 03/06/20 03/07/20 15:00 23:00 07:00 Intake Total 240 ml 300 ml Balance 240 ml 300 ml Labs: Laboratory Tests Test 03/07/20 06:17 White Blood Count 5.8 x10^3/uL (4.0-11.0) Red Blood Count 4.72 x10^6/uL (4.30-5.70) Hemoglobin 15.2 g/dL (13.0-17.5) Hematocrit 45.0 % (39.0-53.0) Mean Corpuscular Volume 95 fL (79-100) Mean Corpuscular Hemoglobin 32 pg (25-35) Mean Corpuscular Hemoglobin Concent 34 g/dL (31-37) Red Cell Distribution Width 13.0 % (11.5-14.5) Platelet Count 130 x10^3/uL (140-400) L Neutrophils (%) (Auto) 70 % (31-73) Lymphocytes (%) (Auto) 20 % (24-48) L Monocytes (%) (Auto) 9 % (0-9) Eosinophils (%) (Auto) 1 % (0-3) Basophils (%) (Auto) 1 % (0-3) Neutrophils # (Auto) 4.1 x10^3uL (1.8-7.7) Lymphocytes # (Auto) 1.2 x10^3/uL (1.0-4.8) Monocytes # (Auto) 0.5 x10^3/uL (0.0-1.1) Eosinophils # (Auto) 0.1 x10^3/uL (0.0-0.7) Basophils # (Auto) 0.0 x10^3/uL (0.0-0.2) Sodium Level 144 mmol/L (136-145) Potassium Level 4.5 mmol/L (3.5-5.1) Chloride Level 108 mmol/L (98-107) H Carbon Dioxide Level 30 mmol/L (21-32) Anion Gap 6 (6-14) Blood Urea Nitrogen 20 mg/dL (8-26) Creatinine 1.0 mg/dL (0.7-1.3) Estimated GFR (Cockcroft-Gault) 73.5 BUN/Creatinine Ratio 20 (6-20) Glucose Level 82 mg/dL (70-99) Calcium Level 8.8 mg/dL (8.5-10.1) Total Bilirubin 0.4 mg/dL (0.2-1.0) Aspartate Amino Transferase (AST) 12 U/L (15-37) L Alanine Aminotransferase (ALT) 15 U/L (16-63) L Alkaline Phosphatase 69 U/L (46-116) Total Protein 6.1 g/dL (6.4-8.2) L Albumin 3.4 g/dL (3.4-5.0) Albumin/Globulin Ratio 1.3 (1.0-1.7) Valproic Acid Level 51 mcg/mL (50-100) Valproic Acid Last Dose Date 03/06/20 Valproic Acid Last Dose Time 1700 Current Medications: I have reviewed the current psychotropics carefully including drug interactions. Risk benefit ratio favors no change other than as noted in my dictated progress note. Diagnosis: Problems: (1) Impulse control disorder, unspecified (2) Major depressive disorder, severe (3) Anxiety disorder, unspecified MICHAEL MCKEON MD Mar 07, 2020 07:33
--- NOTE | 2020-03-07 07:55 | PDOC ---
Exam Note: Daren Note: This note is a late entry for 03/06/2020 covers elements not covered in my initial note. Subjective: The patient was seen on telehealth rounds in the evening of 03/06/2020 with Shelby MATIAS. Discussed with nursing staff, reviewed the chart. He slept 8-3/4 hours previous night. Overall the patient is doing better. He remains withdrawn into his room which is where I met with him on telehealth rounds. Review of Systems: Ambulation impaired in wheelchair. No CV, , pulmonary, eye system symptoms on review. Mental Status Exam: Reasonably oriented. As before the patient thoroughly denies suicidal ideation. States his depression is better. Speech often response is monosyllabic. Abstraction is fair. Computation is impaired. Language function intact. Attention span is short. Mood and affect withdrawn. Laboratory Data: Reviewed. Impression: Major depressive disorder with psychotic features. Anxiety disorder unspecified. Impulse control disorder. Plan: No change from initial note. Assessment: Vital Signs/I&O: Vital Signs Date Time Temp Pulse Resp B/P (MAP) Pulse Ox O2 Delivery O2 Flow Rate FiO2 03/07/20 05:58 97.8 55 16 144/69 (94) 97 03/06/20 15:00 Room Air I & O 03/06/20 03/06/20 03/07/20 15:00 23:00 07:00 Intake Total 600 ml 300 ml Balance 600 ml 300 ml Labs: Laboratory Tests Test 03/07/20 06:17 White Blood Count 5.8 x10^3/uL (4.0-11.0) Red Blood Count 4.72 x10^6/uL (4.30-5.70) Hemoglobin 15.2 g/dL (13.0-17.5) Hematocrit 45.0 % (39.0-53.0) Mean Corpuscular Volume 95 fL (79-100) Mean Corpuscular Hemoglobin 32 pg (25-35) Mean Corpuscular Hemoglobin Concent 34 g/dL (31-37) Red Cell Distribution Width 13.0 % (11.5-14.5) Platelet Count 130 x10^3/uL (140-400) L Neutrophils (%) (Auto) 70 % (31-73) Lymphocytes (%) (Auto) 20 % (24-48) L Monocytes (%) (Auto) 9 % (0-9) Eosinophils (%) (Auto) 1 % (0-3) Basophils (%) (Auto) 1 % (0-3) Neutrophils # (Auto) 4.1 x10^3uL (1.8-7.7) Lymphocytes # (Auto) 1.2 x10^3/uL (1.0-4.8) Monocytes # (Auto) 0.5 x10^3/uL (0.0-1.1) Eosinophils # (Auto) 0.1 x10^3/uL (0.0-0.7) Basophils # (Auto) 0.0 x10^3/uL (0.0-0.2) Sodium Level 144 mmol/L (136-145) Potassium Level 4.5 mmol/L (3.5-5.1) Chloride Level 108 mmol/L (98-107) H Carbon Dioxide Level 30 mmol/L (21-32) Anion Gap 6 (6-14) Blood Urea Nitrogen 20 mg/dL (8-26) Creatinine 1.0 mg/dL (0.7-1.3) Estimated GFR (Cockcroft-Gault) 73.5 BUN/Creatinine Ratio 20 (6-20) Glucose Level 82 mg/dL (70-99) Calcium Level 8.8 mg/dL (8.5-10.1) Total Bilirubin 0.4 mg/dL (0.2-1.0) Aspartate Amino Transferase (AST) 12 U/L (15-37) L Alanine Aminotransferase (ALT) 15 U/L (16-63) L Alkaline Phosphatase 69 U/L (46-116) Total Protein 6.1 g/dL (6.4-8.2) L Albumin 3.4 g/dL (3.4-5.0) Albumin/Globulin Ratio 1.3 (1.0-1.7) Valproic Acid Level 51 mcg/mL (50-100) Valproic Acid Last Dose Date 03/06/20 Valproic Acid Last Dose Time 1700 Current Medications: I have reviewed the current psychotropics carefully including drug interactions. Risk benefit ratio favors no change other than as noted in my dictated progress note. Diagnosis: Problems: (1) Impulse control disorder, unspecified (2) Major depressive disorder, severe (3) Anxiety disorder, unspecified MICHAEL MCKEON MD Mar 07, 2020 07:55
[2020-03-07] MEDS: FLUTICASONE 50MCG/NASAL SPRAY 16GM BOTTLE. NS SCH (09:42)
[2020-03-07] MEDS: ASPIRIN CHEWABLE 81 MG TABLET. PO SCH (09:42)
[2020-03-07] MEDS: SENNOSIDES 8.6 MG TABLET PO SCH (09:43)
[2020-03-07] MEDS: POTASSIUM CHLORIDE 20 MEQ TABLET.ER. PO SCH (09:43)
[2020-03-07] MEDS: CALCIUM CARB/VIT D3 500/200 TABLET PO SCH (09:43)
[2020-03-07] MEDS: POLYETHYLENE GLYCOL 3350 17 GM PACKET. PO SCH (09:43)
[2020-03-07] MEDS: DIVALPROEX 125 MG CAP.SPRINK PO SCH (09:43)
[2020-03-07] MEDS: SERTRALINE 25 MG TABLET. PO SCH (09:46)
[2020-03-07] MEDS: ASCORBIC ACID 500 MG TABLET PO SCH (09:46)
[2020-03-07] MEDS: ATENOLOL 50 MG TABLET PO SCH (09:46)
[2020-03-07] MEDS: SERTRALINE 100 MG TABLET. PO SCH (09:46)
[2020-03-07] MEDS: CHOLECALCIFEROL (VITAMIN D3) 1,000 UNIT TABLET PO SCH (09:46)
[2020-03-07] MEDS: NICOTINE 14MG PATCH. TD SCH (09:47)
--- NOTE | 2020-03-07 21:13 | PDOC ---
Exam Note: Daren Note: Please also refer to the separate dictated note~for this date of service dictated separately.~Patient seen individually. Discussed the patient with Nursing staff reviewed the chart.~Reviewed interim history and current functioning. Reviewed vital signs,~Labs/ Radiology~and current medications noted below. Continue current treatment with the changes noted in the dictated addendum note Assessment: Vital Signs/I&O: Vital Signs Date Time Temp Pulse Resp B/P (MAP) Pulse Ox O2 Delivery O2 Flow Rate FiO2 03/07/20 09:45 60 03/07/20 05:58 97.8 16 144/69 (94) 97 03/06/20 15:00 Room Air I & O 0 03/06/20 03/06/20 03/07/20 15:00 23:00 07:00 Intake Total 600 ml 300 ml Balance 600 ml 300 ml Labs: Laboratory Tests Test 03/07/20 06:17 White Blood Count 5.8 x10^3/uL (4.0-11.0) Red Blood Count 4.72 x10^6/uL (4.30-5.70) Hemoglobin 15.2 g/dL (13.0-17.5) Hematocrit 45.0 % (39.0-53.0) Mean Corpuscular Volume 95 fL (79-100) Mean Corpuscular Hemoglobin 32 pg (25-35) Mean Corpuscular Hemoglobin Concent 34 g/dL (31-37) Red Cell Distribution Width 13.0 % (11.5-14.5) Platelet Count 130 x10^3/uL (140-400) L Neutrophils (%) (Auto) 70 % (31-73) Lymphocytes (%) (Auto) 20 % (24-48) L Monocytes (%) (Auto) 9 % (0-9) Eosinophils (%) (Auto) 1 % (0-3) Basophils (%) (Auto) 1 % (0-3) Neutrophils # (Auto) 4.1 x10^3uL (1.8-7.7) Lymphocytes # (Auto) 1.2 x10^3/uL (1.0-4.8) Monocytes # (Auto) 0.5 x10^3/uL (0.0-1.1) Eosinophils # (Auto) 0.1 x10^3/uL (0.0-0.7) Basophils # (Auto) 0.0 x10^3/uL (0.0-0.2) Sodium Level 144 mmol/L (136-145) Potassium Level 4.5 mmol/L (3.5-5.1) Chloride Level 108 mmol/L (98-107) H Carbon Dioxide Level 30 mmol/L (21-32) Anion Gap 6 (6-14) Blood Urea Nitrogen 20 mg/dL (8-26) Creatinine 1.0 mg/dL (0.7-1.3) Estimated GFR (Cockcroft-Gault) 73.5 BUN/Creatinine Ratio 20 (6-20) Glucose Level 82 mg/dL (70-99) Calcium Level 8.8 mg/dL (8.5-10.1) Total Bilirubin 0.4 mg/dL (0.2-1.0) Aspartate Amino Transferase (AST) 12 U/L (15-37) L Alanine Aminotransferase (ALT) 15 U/L (16-63) L Alkaline Phosphatase 69 U/L (46-116) Total Protein 6.1 g/dL (6.4-8.2) L Albumin 3.4 g/dL (3.4-5.0) Albumin/Globulin Ratio 1.3 (1.0-1.7) Valproic Acid Level 51 mcg/mL (50-100) Valproic Acid Last Dose Date 03/06/20 Valproic Acid Last Dose Time 1700 Current Medications: I have reviewed the current psychotropics carefully including drug interactions. Risk benefit ratio favors no change other than as noted in my dictated progress note. Diagnosis: Problems: (1) Impulse control disorder, unspecified (2) Major depressive disorder, severe (3) Anxiety disorder, unspecified MICHAEL MCKEON MD Mar 07, 2020 21:13
--- NOTE | 2020-03-07 21:47 | DS ---
DATE OF DISCHARGE: 03/07/2020 DISCHARGE SUMMARY/PSYCHIATRIC PROGRESS NOTE REASON FOR ADMISSION: The patient is a 69-year-old male referred to us from this staff at the [facility] after he presented there from [facility] on account of worsening symptoms of depression with suicidal ideation, but without a plan. Reportedly, stated he felt he was in a "dark place" and wanted to . It was determined by his physician and care providers that he was unsafe to return to the assisted living apartment and then referred for inpatient psychiatric stabilization. He is also noncompliant with his medications. SIGNIFICANT FINDINGS AND CLINICAL COURSE: Following admission, the patient was seen daily individually by myself from a psychiatric standpoint, medical followup with Dr. Nuñez/Dr. Aparicio. The patient was depressed, anxious, withdrawn with fleeting suicidal ideation. Adjustments were made in his psychotropics. He seemed to respond to a combination of Zoloft 125 mg a day, trazodone 50 mg at bedtime p.r.n. for insomnia, Depakote 250 mg twice a day and Seroquel 50 mg at bedtime prior to discharge on 03/07/2020. REVIEW OF SYSTEMS: Ambulation impaired, in wheelchair. No CV, , pulmonary, eye, ENT system symptoms on review. MENTAL STATUS EXAM: The patient is reasonably oriented. Speech is coherent, has some latency. Abstraction fair, computation impaired, language function intact, attention span short. Mood and affect was improved. No suicidal ideation at discharge. CONDITION AT DISCHARGE: Improved. FINAL DIAGNOSES: Major depressive disorder, recurrent, in partial remission; anxiety disorder, unspecified; mild cognitive impairment. Rest unchanged from admission. DISCHARGE MEDICATIONS: Please refer to the MRAD. DISCHARGE INSTRUCTIONS: Outpatient psychiatric and medical followup at the [facility]. Time for discharge day management greater than 30 minutes. MICHAEL MCKEON MD DR: ELIAN/dawood JOB#: [id number] / [id number]
[2020-03-17] MEDS ORDERED: CYANOCOBALAMIN (VITAMIN B-12) 1,000 MCG/ML VIAL. IM SCH (09:00)
== END 2020-03-07 14:13 | DRG 885 ==
LOC: GEROPSY 21:21
PROVIDERS: ADMIT Psychiatry & Neurology Psychiatry; ATTEND Psychiatry & Neurology Psychiatry
DX: F33.41 Major depressive disorder, recurrent, in partial remission (principal); F01.51 Vascular dementia, unspecified severity, with behavioral disturbance; I10 Essential (primary) hypertension; E78.5 Hyperlipidemia, unspecified; F10.10 Alcohol abuse, uncomplicated; F17.200 Nicotine dependence, unspecified, uncomplicated; F41.9 Anxiety disorder, unspecified; F63.9 Impulse disorder, unspecified; Z20.828 Contact with and (suspected) exposure to other viral communicable diseases; Z79.899 Other long term (current) drug therapy; Z91.14 Patient's other noncompliance with medication regimen
CPT/HCPCS: 36415; 80053; 80061; 80164; 81001; 82306; 82607; 83036; 83540; 83550; 83735; 84436; 84443; 84480; 85025; 85379; 86592; 87086; 93005; 99406; U0003

== ENCOUNTER 2021-05-11 14:29 | Inpatient (IN) | payer OTHER ==
[~2021-05-11] VITALS: Ht 175.3 cm; Wt 67.0 kg
[~2021-05-11 14:29] MED LIST changes: +CYAN100031 PO; +DIVA125C2 PO; +FLUT16SP21 NS; +NICO1PAT25 TD; +POTA-121 PO; -POTA20TA4 PO; +SENN8.6T99 PO; +SENN8.8S13 PO; -SENN8.8S5 PO; +SERT100T PO; +SERT50TA PO; +TRAZ-120 PO
[2021-05-11 15:30] VITALS: BP 119/68
[2021-05-11] MEDS ORDERED: MAG HYDROX/AL HYDROX/SIMETH 30 ML ORAL.SUSP PO PRN (16:15)
[2021-05-11] MEDS ORDERED: METHYL SALICYLATE/MENTHOL TOPICAL OINTMENT 57GM TUBE. TP PRN (16:15)
[2021-05-11] MEDS ORDERED: ATOR10TA60 PO (16:42)
[2021-05-11] MEDS ORDERED: IPRA0.2S5 NS (16:54)
[2021-05-11 20:35] LABS: BASO % 0 % (0-3); EOS % 0 % (0-3); HEMATOCRIT 37.2 % (39.0-53.0); HEMOGLOBIN 12.8 g/dL (13.0-17.5); LYMPH # 0.5 x10^3/uL (1.0-4.8); LYMPH % 8 % (24-48); MEAN CORPUSCULAR HEMOGLOBIN 32 pg (25-35); MEAN CORPUSCULAR HGB CONC 34 g/dL (31-37); MEAN CORPUSCULAR VOLUME 94 fL (79-100); MONO # 0.3 x10^3/uL (0.0-1.1); MONO % 6 % (0-9); NEUT # 4.9 x10^3uL (1.8-7.7); NEUT % 86 % (31-73); PLATELET COUNT 161 x10^3/uL (140-400); RED BLOOD COUNT 3.97 x10^6/uL (4.30-5.70); RED CELL DISTRIBUTION WIDTH 13.4 % (11.5-14.5); WHITE BLOOD COUNT 5.8 x10^3/uL (4.0-11.0)
[2021-05-11 20:48] LABS: ALBUMIN 2.9 g/dL (3.4-5.0); ALBUMIN/GLOBULIN RATIO 0.9 (1.0-1.7); CALCIUM 8.1 mg/dL (8.5-10.1); GFR 73.2; TOTAL BILIRUBIN 0.4 mg/dL (0.2-1.0); TOTAL PROTEIN 6.1 g/dL (6.4-8.2)
[2021-05-11 20:53] LABS: VAL ACID 15 mcg/mL (50-100)
--- NOTE | 2021-05-11 22:10 | EKG ---
[address] [address] Test Date: 2021-05-11 Test Time: 20:52:48 Pat Name: JERARDO MCLEAN Department: Room: [address] [place] [address] Gender: M Early Childhood Specialist: : [id number] Requested By: TANA MAYA Order Number: [id number] Reading MD: Ata Pedroza Measurements Intervals [place] Rate: 64 P: 50 CA: 208 QRS: 58 QRSD: 76 T: 62 QT: 418 QTc: 431 Interpretive Statements SINUS RHYTHM NORMAL ECG Electronically Signed On 05-12-2021 12:45:40 DRY JANITOR by Ata Pedroza
--- NOTE | 2021-05-12 00:48 | PSYEV ---
DATE OF SERVICE: 05/11/2021 REASON FOR ADMISSION: This 71-year-old male was readmitted to [facility] with a history of behavior problems at the residential where he was staying, [facility] in [facility] and was sent to [facility] Emergency Room where he was evaluated and recommended for inpatient treatment. The patient apparently filling himself into a pond at the [facility] and this week. Apparently, has suicidal attempt and has been refusing to eat or take medications. Also, aggressive, threatening staff at times. HISTORY OF PRESENT ILLNESS: The patient has been getting outpatient treatment through the [facility]. The patient on admission was unable to give much information and was confused, somewhat bewildered and did not know where he was. He has no awareness of his surroundings and he could not answer most of the questions even he did not know the date, time, or year. The patient's behavior fluctuates according to the information available and lately has been getting worse, depression, suicidal ideation and recent attempt and he has made repeated statements of wanting to . The patient apparently failed outpatient treatment. The patient also has been refusing to take his medications. The patient also having problems with his sleep and appetite. The patient is unable to give reasons that he came in here even he did not know what was going on except stating and he was put in a bus and sent him here. PAST PSYCHIATRIC HISTORY: History of depression. The patient is receiving treatment through the [facility]. The patient was [facility] to [facility] in February of 2020 with similar problems. At that time, he did not make any suicidal attempts. PAST MEDICAL HISTORY: Status post CVA with right-sided residual deficits, hypertension, hyperlipidemia. The patient also has history of hypertension, pulmonary embolism and also history of dementia. ALLERGIES: The patient has no known allergies. PSYCHOSOCIAL HISTORY: The patient is not able to provide much information at this time. The patient has been at the [facility] and the patient has a history of alcohol abuse in the past and also smoker. Denied of any physical, emotional, or sexual abuse in the past. LABORATORY DATA: Reviewed, which were all within normal range except for vitamin B12 of 242, iron 63, TIBC 222. Urinalysis was within normal limits. MENTAL STATUS EXAMINATION: The patient appeared to be of his stated age, withdrawn, thin built, had considerable difficulty with ambulation and also involuntary movements of both hands. He was disoriented to time, place and person. The patient also hyperactive, restless and had some involuntary movements. His speech was monotone, somewhat pressured and unable to hold a conversation. The patient appears to be impulsive. The patient reacts to situations with sudden increased psychomotor activity and also appears to be guarded. The patient with history of behavior problems including somewhat threatening towards the staff in the past. The patient is unable to answer any of the other questions including he still has any intention of hurting himself. The patient is disoriented to time, place and person. His memory is not testable. Judgment impaired. Insight limited. ADMITTING DIAGNOSES: 1. Dementia, most likely vascular with depression and behavior problems. 2. History of major depressive disorder. AXIS II: None. AXIS III: Status post cerebrovascular accident, pulmonary embolism, hypertension, hyperlipidemia. STRENGTHS: The patient has support system through the [facility], currently residing in a facility attached to the [facility] system. The patient unable to give much information about his past history. WEAKNESS: The patient apparently made a suicidal attempt, trying to fill himself into a pond, partially merged. The patient has made frequent statements of suicide, but no prior attempts. The patient also known to have explosive temper at times. INITIAL TREATMENT PLAN: The patient to be admitted to [facility]. He will be seen by the psychiatrist daily and follow up by Dr. Nuñez. The patient will continue on his current medications. The patient will be evaluated for any medication change. The patient recently received Ativan 2 mg intravenously prior to coming here. ESTIMATED LENGTH OF STAY: 7-10 days. MERCEDES BURCIAGA: Fabio TID: [id number]
[2021-05-12 06:19] VITALS: BP 131/78
[2021-05-12 07:12] LABS: CLARITY,URINE HAZY; COLOR,URINE YELLOW; GLUCOSE,URINE NEG (NEG); NITRITE,URINE POS (NEG); UROBILINOGEN,URINE 0.2 mg/dL (0.2 mg/dL)
[2021-05-12 07:13] LABS: BACTERIA,URINE MANY /HPF (0-FEW); SQUAMOUS EPITHELIAL CELL,UR MOD /LPF
[2021-05-12] MEDS ORDERED: QUEtiapine 50 MG TABLET. PO PRN (07:15)
[2021-05-12] MEDS: SENNOSIDES 8.6 MG TABLET PO SCH (08:19)
[2021-05-12] MEDS: ASPIRIN CHEWABLE 81 MG TABLET. PO SCH (08:19)
[2021-05-12] MEDS: CYANOCOBALAMIN (VITAMIN B-12) 1,000 MCG TABLET. PO SCH (08:19)
[2021-05-12] MEDS: SERTRALINE 50 MG TABLET. PO SCH (08:19)
[2021-05-12] MEDS: POLYETHYLENE GLYCOL 3350 17 GM PACKET. PO SCH (08:19)
[2021-05-12] MEDS: POTASSIUM CHLORIDE 20 MEQ TABLET.ER. PO SCH (08:19)
[2021-05-12] MEDS: ASCORBIC ACID 500 MG TABLET PO SCH (08:19)
[2021-05-12] MEDS: CHOLECALCIFEROL (VITAMIN D3) 1,000 UNIT TABLET PO SCH (08:19)
[2021-05-12] MEDS: NICOTINE 14MG PATCH. TD SCH (08:21)
[2021-05-12] MEDS ORDERED: NICOTINE 14MG PATCH. TD SCH (09:00)
[2021-05-12] MEDS ORDERED: DIVALPROEX 125 MG CAP.SPRINK PO SCH (09:00)
[2021-05-12] MEDS: IPRATROPIUM BROMIDE 0.06% NASAL SPRAY 15ML BOTTLE NS SCH ×2 (13:53→19:41)
--- NOTE | 2021-05-12 16:06 | TX PLAN ---
Interdisciplinary Tx Plan Admission Information May 11, 2021 at 14:29 Legal Status (on Admission): Voluntary DPOA/Guardian Name: Milvia patel Contact Other Contact Name: Mercedes LUND Other Contact Verified Code Status: Full Code Allergies: Coded Allergies: No Known Drug Allergies (Unverified , 02/17/20) Diagnoses Primary Diagnosis: Dementia, Vascular with Depression and BD Reasons for Admission: Depressed, Suicidal attempt, Poor impulse control Problem in Patient's Words: Concerned that he may need a higher level of care Additional Admission Comments: According to the intake, pt has acute suicidal ideations, attempted to drown himself in a pond, depressed, poor intake and refusing meds. Eloped from the facility, aggressive when doesn't want to do something Problems Active Problems: Withdrawn Inactive Problems: Medication complaint Pt Strengths/Limitations Ability for [place]: Poor Cognitive Functioning/Ability: Fair Communication Skills/Ability: Fair Financial Resources: Fair Insight/Judgement: Poor Intellectual Ability: Fair Physical Health: Poor Social Skills: Fair Stability in Family: Fair Stability in School/Work: Poor Verbal Skills: Fair Discharge Criteria Discharge Criteria: No need for close observ., Adequate arrangements @DC, Improved behavior, Improved mood/thought Preliminary Discharge Plan Preliminary DC Plan: Current Living Arrange. Special Precautions Fall Risk: Moderate Initial D/C Plan Pt to return to [facility] once stable. Identified Discharge Needs: Psychiatric care needs Currently Utilized Resources Currently Utilized Resources/P: Services through the [facility] Identified Problems/Hx/Goals Objectives/Short-Term Goals Short Term Goals: No Suicidal/Serjio. ideation Short Term Goals in Patient's: N/A Interventions/Frequency Staff Interventions/Frequency&: Psychiatrist to assess pt at least 3x per week for medication management. Social Work to assess pt at least 2x per week to identify barriers to care and discharge planning. Nursing to assess medication effects, behavior modification and completion of 15 minute checks. Encourage participation in group activities (if applicable) or 1:1 engagement based off activity dept goals. History Vocational History: Pt worked for the [employer] for the [employer] for many years. Retired due to "not liking people". Education: Pt graduated HS 12th grade Community Follow-up Will continue services through the [facility] Treatment Plan Explained Patient/City Attorney had this treatment plan explained to him/her as indicated by the signature below and has been given the opportunity to ask questions and make suggestions: Date: Patient/City Attorney Signature: Patient/City Attorney Decline: No (Pt dtr is active in pt care.) CHAVA JIANG May 12, 2021 16:06
[2021-05-12 16:09] VITALS: BP 121/69
[2021-05-12] MEDS: DIVALPROEX 125 MG CAP.SPRINK PO SCH (17:13)
[2021-05-12 18:30] LABS: CHOLESTEROL/HDL RATIO 2.1; THYROID STIM HORMONE (TSH) 3.344 uIU/mL (0.358-3.740)
[2021-05-12] MEDS: ATORVASTATIN CALCIUM 10 MG TABLET. PO SCH (19:41)
[2021-05-13 01:07] LABS: THYROXINE 4.6 ug/dL (4.5-12.0)
--- NOTE | 2021-05-13 03:57 | PN ---
DATE: 05/12/2021 SUBJECTIVE: The patient was seen today, met with the staff. Chart reviewed and also participated in the treatment review meeting. The patient has been isolating in her room, likes to be left alone, having significant mood swings, occasional outbursts of anger, mostly cooperative. The patient also states he had problems with alcohol in the past, not now. The patient also admits, it is confirmed, that his 25-year-old son committed suicide, but he was not able to go into details. Also, his brother was diagnosed with bipolar disorder. He was twice and , recently had a girlfriend, apparently broke up with her. The patient also was living alone. The patient was not able to take care of his needs. The patient also has some hearing loss. OBSERVATION: VITAL SIGNS: Temperature 97.6, blood pressure 131/78, pulse 59, respirations 16, O2 sat 98%. GENERAL: Slept about 6 hours last night. The patient's appetite is fair. LABORATORY DATA: The patient's lab reviewed. RBC 3.97, hemoglobin 12.8 and no other significant change from prior readings. CURRENT MEDICATIONS: The patient's current medications include Lipitor 10 mg at night, Zoloft 125 mg daily, Seroquel 25 mg twice a day p.r.n. The patient is not having any side effects to medications. ASSESSMENT: 1. Dementia, most likely vascular with depression and behavior problems: 2. History of major depressive disorder. PLAN: To continue treatment. LENGTH OF STAY: 7-10 days. BOLA/JEA NMARIE DR: Fabio TID: [id number]
--- NOTE | 2021-05-13 04:37 | CONS ---
DATE OF CONSULTATION: 05/12/2021 REASON FOR CONSULTATION: Medical management. HISTORY OF PRESENT ILLNESS: The patient is a 71-year-old male patient, who was admitted to [facility] for transfer from [facility] in [facility]. He was seen in the [facility] Room of the [place] [place] where he was evaluated and their recommendation was for inpatient treatment. Apparently, the patient has fallen [place] at the [place] and he apparently has suicidal attempts and has been refusing to eat or take any of his medications and was aggressive, threatening staff at times and all this in a background of dementia, vascular with depression and behavioral disturbances, although the patient himself said that this was accidental and he was not intending to kill himself. 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 PAST SURGICAL HISTORY: Unremarkable. ALLERGIES: He has no known drug allergies. FAMILY HISTORY: Noncontributory. SOCIAL HISTORY: He is apparently a resident at [facility] in [facility]. He apparently does not smoke, although he is an ex-smoker and he also used to drink alcohol heavily before. REVIEW OF SYSTEMS: As per history of present illness. MEDICATIONS: He is currently on the following medication: He is on atorvastatin 10 mg at bedtime, divalproex sodium 250 mg twice a day, ipratropium bromide inhalers twice a day, polyethylene glycol 17 grams daily, cyanocobalamin 1000 mcg per mL intramuscular once q. 48 days, vitamin D 1000 units daily, sertraline 125 mg daily, senna 1 tablet once a day, potassium chloride 40 mEq daily, aspirin 81 mg once a day, ascorbic acid 500 mg once a day, nicotine patch 14 mg topically once a day, quetiapine fumarate 25 mg twice a day, magnesium hydroxide, milk of magnesia 30 mL p.o. daily p.r.n. for constipation, acetaminophen 650 mg every 4 hours. PHYSICAL EXAMINATION: GENERAL: On examining him, he was sitting in his wheelchair in no apparent respiratory distress. There was no pallor, jaundice, cyanosis. No lymphadenopathy, no thyromegaly, no jugular venous distention. No limb edema. VITAL SIGNS: Her heart rate was 63, blood pressure was 121/69, temperature was 98, respiratory rate was 18 and oxygen saturation was 97% on room air. HEAD, EYES, EARS, NOSE, AND THROAT: Normocephalic, atraumatic. NECK: Supple. HEART: Showed normal first and second heart sounds. No gallop, rub or murmur. CHEST: Clear to auscultation, no crepitation or rhonchi. ABDOMEN: Scaphoid, soft, nontender. NEUROLOGIC: He was awake, alert, responding appropriately, although sometimes difficult to understand. All his cranial nerves II-XII grossly intact. He has flaccid right upper and right lower extremity. He is mostly wheelchair bound, bedbound. LABORATORY DATA: Showed a white cell count 5800, hemoglobin 13, hematocrit 37, MCV 94 and platelet count of 161,000. His chemistry showed a serum sodium 141, potassium 4, chloride 107, bicarbonate 25, anion gap of 9, BUN 19, creatinine 1. Estimated GFR was 73 mL per minute. His glucose was 94, calcium was 8.1, magnesium 2. Total bilirubin, AST, ALT, alkaline phosphatase were normal. Total protein 6.1, albumin was 2.9. His D-dimer was 1.05. His urinalysis was mostly unremarkable. His toxic screen showed valproic acid to be only 15 mcg per mL while the therapeutic range would be 50-100. His SARS-CoV-2 by PCR was not detectable. ASSESSMENT AND PLAN: In summary, this is a 71-year-old male patient, who was admitted to [facility] on account of suicidal ideation. The patient was found wheeling himself into a pond at the [place] in [place]. He did not get fully submerged. Apparently, the patient was considered as having a suicidal attempt and suicidal ideation and not eating or taking medications, swinging ____ staff. All this in a background of dementia, vascular, depression, behavioral disturbances. Medically, the patient seems to have history of hypertension, hyperlipidemia, cerebrovascular accident involving left middle cerebral artery with right-sided hemiplegia. Has a history of pulmonary embolism. All in all, the patient seems to be medically stable. His vital signs are normal. His lab work are all within acceptable range. PLAN: My plan is to follow all his labs that are still pending and make any necessary recommendation. Thank you, Dr. Cornell, for allowing me to participate in the care of this patient. EVERT DR: Rashaad TID: [id number]
[2021-05-13 05:48] VITALS: BP 146/83
[2021-05-13] MEDS: NICOTINE 14MG PATCH. TD SCH (08:11)
[2021-05-13] MEDS: POLYETHYLENE GLYCOL 3350 17 GM PACKET. PO SCH (08:11)
[2021-05-13] MEDS: ASCORBIC ACID 500 MG TABLET PO SCH (08:12)
[2021-05-13] MEDS: SENNOSIDES 8.6 MG TABLET PO SCH (08:12)
[2021-05-13] MEDS: CHOLECALCIFEROL (VITAMIN D3) 1,000 UNIT TABLET PO SCH (08:12)
[2021-05-13] MEDS: DIVALPROEX 125 MG CAP.SPRINK PO SCH ×2 (08:12→16:00)
[2021-05-13] MEDS: ASPIRIN CHEWABLE 81 MG TABLET. PO SCH (08:12)
[2021-05-13] MEDS: IPRATROPIUM BROMIDE 0.06% NASAL SPRAY 15ML BOTTLE NS SCH ×2 (08:13→20:30)
[2021-05-13] MEDS: POTASSIUM CHLORIDE 20 MEQ TABLET.ER. PO SCH (08:13)
[2021-05-13] MEDS: SERTRALINE 50 MG TABLET. PO SCH (08:13)
[2021-05-13 15:21] VITALS: BP 87/62
[2021-05-13] MEDS: ATORVASTATIN CALCIUM 10 MG TABLET. PO SCH (20:30)
--- NOTE | 2021-05-13 23:26 | PN ---
DATE: 05/13/2021 SUBJECTIVE: The patient was seen today, met with the staff. Chart reviewed. I am covering for Dr. Cornell. Staff reports no major behavior problems except his hearing loss and also having difficulty with his speech. The patient also having some involuntary movements. The patient also has weakness on the right side secondary to CVA. OBSERVATION: VITAL SIGNS: 96.9, blood pressure 146/83, pulse 72, respirations 16, O2 sat 96%. GENERAL: Slept about 7 hours last night. The patient's appetite has decreased. LABORATORY DATA: The patient's lab reviewed, no change from prior levels. CURRENT MEDICATIONS: The patient's current medications include Depakote 250 mg twice a day, Zoloft 125 mg daily and also Seroquel 25 mg twice a day. The patient is not having any side effects to medications. ASSESSMENT: Dementia, most likely vascular with the depression and behavioral problems. PLAN: To continue treatment. LENGTH OF STAY: 7-[address]: Fabio TID: [id number]
[2021-05-14 06:43] VITALS: BP 125/72
[2021-05-14] MEDS: POLYETHYLENE GLYCOL 3350 17 GM PACKET. PO SCH (08:45)
[2021-05-14] MEDS: NICOTINE 14MG PATCH. TD SCH (08:46)
[2021-05-14] MEDS: IPRATROPIUM BROMIDE 0.06% NASAL SPRAY 15ML BOTTLE NS SCH ×2 (08:46→19:40)
[2021-05-14] MEDS: ASCORBIC ACID 500 MG TABLET PO SCH (08:50)
[2021-05-14] MEDS: ASPIRIN CHEWABLE 81 MG TABLET. PO SCH (08:50)
[2021-05-14] MEDS: CHOLECALCIFEROL (VITAMIN D3) 1,000 UNIT TABLET PO SCH (08:50)
[2021-05-14] MEDS: SERTRALINE 50 MG TABLET. PO SCH (08:50)
[2021-05-14] MEDS: POTASSIUM CHLORIDE 20 MEQ TABLET.ER. PO SCH (08:50)
[2021-05-14] MEDS: SENNOSIDES 8.6 MG TABLET PO SCH (08:50)
[2021-05-14] MEDS: DIVALPROEX 125 MG CAP.SPRINK PO SCH ×2 (08:50→16:08)
[2021-05-14 15:55] VITALS: BP 128/75
[2021-05-14] MEDS: CEFDINIR 300 MG CAPSULE PO SCH (19:40)
[2021-05-14] MEDS: LACTOBACILLUS RHAMNOSUS GG 1 CAPSULE. PO SCH (19:41)
[2021-05-14] MEDS: ATORVASTATIN CALCIUM 10 MG TABLET. PO SCH (19:41)
--- NOTE | 2021-05-14 23:03 | PN ---
DATE: 05/14/2021 SUBJECTIVE: The patient was seen today, met with the staff, chart reviewed and covering for Dr. Cornell. The patient's behavior remains the same. He is pleasant, most of the time, cooperative with the staff and is able to assist himself including going to the bathroom, also being restless, wanting to go back to the senior living. The patient also exhibiting some confusion, exit-seeking behaviors and tend to isolate himself. The patient also has hearing loss and has some involuntary movements. OBSERVATION: VITAL SIGNS: Temperature 98.3, blood pressure 125/72, pulse 65, respirations 16, O2 sat 99%. GENERAL: Slept about 8 hours last night. The patient's appetite is fair. CURRENT MEDICATIONS: Depakote 250 mg twice a day, Zoloft 125 mg daily and also Seroquel 25 mg twice a day. He is not having any side effects to medications. ASSESSMENT: Dementia, most likely vascular with depression and behavioral disturbances. PLAN: Continue with treatment. LENGTH OF STAY: 7-[address]: Fabio TID: [id number]
[2021-05-15 05:52] VITALS: BP 142/69
[2021-05-15] MEDS: SENNOSIDES 8.6 MG TABLET PO SCH (08:56)
[2021-05-15] MEDS: CHOLECALCIFEROL (VITAMIN D3) 1,000 UNIT TABLET PO SCH (08:56)
[2021-05-15] MEDS: CEFDINIR 300 MG CAPSULE PO SCH ×2 (08:57→20:58)
[2021-05-15] MEDS: SERTRALINE 50 MG TABLET. PO SCH (08:57)
[2021-05-15] MEDS: POTASSIUM CHLORIDE 20 MEQ TABLET.ER. PO SCH (08:57)
[2021-05-15] MEDS: LACTOBACILLUS RHAMNOSUS GG 1 CAPSULE. PO SCH ×2 (08:57→20:59)
[2021-05-15] MEDS: ASCORBIC ACID 500 MG TABLET PO SCH (08:57)
[2021-05-15] MEDS: DIVALPROEX 125 MG CAP.SPRINK PO SCH ×2 (08:57→17:22)
[2021-05-15] MEDS: ASPIRIN CHEWABLE 81 MG TABLET. PO SCH (08:57)
[2021-05-15] MEDS: NICOTINE 14MG PATCH. TD SCH ×2 (08:58→09:00)
[2021-05-15] MEDS: IPRATROPIUM BROMIDE 0.06% NASAL SPRAY 15ML BOTTLE NS SCH ×2 (08:58→20:59)
[2021-05-15] MEDS: POLYETHYLENE GLYCOL 3350 17 GM PACKET. PO SCH (08:58)
[2021-05-15 15:45] VITALS: BP 116/68
[2021-05-15] MEDS: CARBIDOPA/LEVODOPA 25/100MG TABLET PO SCH (20:59)
[2021-05-15] MEDS: ATORVASTATIN CALCIUM 10 MG TABLET. PO SCH (20:59)
--- NOTE | 2021-05-15 21:44 | PDOC ---
Exam Note: Daren Note: Please also refer to the separate dictated note~for this date of service dictated separately.~Patient seen individually. Discussed the patient with Nursing staff reviewed the chart.~Reviewed interim history and current functioning. Reviewed vital signs,~Labs/ Radiology~and current medications noted below. Continue current treatment with the changes noted in the dictated addendum note Assessment: Vital Signs/I&O: Vital Signs Date Time Temp Pulse Resp B/P (MAP) Pulse Ox O2 Delivery O2 Flow Rate FiO2 05/15/21 15:45 99.2 95 19 116/68 (84) 97 05/13/21 05:48 Room Air I & O 05/14/21 05/14/21 05/15/21 15:00 23:00 07:00 Intake Total 600 ml 300 ml Balance 600 ml 300 ml Current Medications: Meds: Current Medications Medications (Trade) Dose Ordered Sig/Daisy Route PRN Reason Start Time Stop Time Status Last Admin Dose Admin Acetaminophen (Tylenol) 650 mg PRN Q6HRS PRN PO MILD PAIN / TEMP > 100.3'F 05/11/21 16:15 Multi-Ingredient Ointment (Analgesic [place]) 1 eva PRN QID PRN TP MUSCLE PAIN 05/11/21 16:15 Al Hydroxide/Mg Hydroxide (Mylanta Plus Xs) 15 ml PRN AFTMEALHC PRN PO DYSPEPSIA 05/11/21 16:15 Magnesium Hydroxide (Milk Of Magnesia) 2,400 mg PRN QHS PRN PO CONSTIPATION 05/11/21 16:15 Nicotine (Nicoderm Cq 14mg Patch) 1 patch DAILY TD 05/12/21 09:00 05/14/21 08:46 Ascorbic Acid (Vitamin C) 500 mg DAILY PO 05/12/21 09:00 05/15/21 08:57 Aspirin (Aspirin Chewable) 81 mg DAILY PO 05/12/21 09:00 05/15/21 08:57 Nicotine (Nicoderm Cq 14mg Patch) 1 patch DAILY TD 05/12/21 09:00 UNV Potassium Chloride (Klor-Con) 40 meq DAILY PO 05/12/21 09:00 05/15/21 08:57 Sennosides (Senna) 8.6 mg DAILY PO 05/12/21 09:00 05/15/21 08:56 Sertraline HCl (Zoloft) 125 mg DAILY PO 05/12/21 09:00 05/15/21 08:57 Vitamin D (Vitamin D3) 1,000 unit DAILY PO 05/12/21 09:00 05/15/21 08:56 Cyanocobalamin (Vitamin B-12) 1,000 mcg [id number] PO 05/12/21 09:00 05/12/21 08:19 Polyethylene Glycol (miraLAX) 17 gm DAILY PO 05/12/21 09:00 05/15/21 08:58 Atorvastatin Calcium (Lipitor) 10 mg QHS PO 05/12/21 21:00 05/15/21 20:59 Quetiapine Fumarate (SEROquel) 25 mg PRN BID PRN PO AGITATION 05/12/21 07:15 Divalproex Sodium (Depakote Sprinkles) 125 mg [id number] PO 05/12/21 09:00 05/12/21 16:01 DC 05/12/21 08:19 Ipratropium [place] (Atrovent Nasal) 1 spray BID NS 05/12/21 09:00 05/15/21 20:59 Divalproex Sodium (Depakote Sprinkles) 250 mg [id number] PO 05/12/21 16:00 05/15/21 17:22 Cefdinir (Omnicef) 300 mg BID PO 05/14/21 21:00 05/20/21 22:00 05/15/21 20:58 Lactobacillus Rhamnosus (Culturelle) 1 cap BID PO 05/14/21 21:00 05/15/21 20:59 Carbidopa/Levodopa (Sinemet 25/100) 1 tab TID PO 05/15/21 21:00 05/15/21 20:59 Current Medications Medications (Trade) Dose Ordered Sig/Daisy Route PRN Reason Start Time Stop Time Status Last Admin Dose Admin Carbidopa/Levodopa (Sinemet 25/100) 1 tab TID PO 05/15/21 21:00 05/15/21 20:59 I have reviewed the current psychotropics carefully including drug interactions. Risk benefit ratio favors no change other than as noted in my dictated progress note. Diagnosis: Problems: (1) Impulse control disorder, unspecified (2) Anxiety disorder, unspecified MICHAEL MCKEON MD May 15, 2021 21:44
--- NOTE | 2021-05-16 03:56 | CONS ---
NEUROLOGY CONSULTATION REFERRING PHYSICIAN: Dr. Cornell. REASON FOR CONSULTATION: Abnormal movements of the hands. HISTORY OF PRESENT ILLNESS: This is a 71-year-old right-handed male who was admitted to [facility] on 05/[facility]/2021 on account of aggressive behavior towards staff, refusing medications, poor appetite and sleep, and suicidal ideation and first suicidal attempt. The patient was transferred from [facility] after outpatient psychiatric treatment has failed. It was reported that he had some aggressive behavior towards himself and toward the staff. The first suicidal attempt was to kill himself ___ wanted to . However, he has repeated suicidal ideation as the patient becomes more depressed and anxious. Before admission, the patient was given an IV 2 mg of Ativan intravenously. A Neurology consult was requested as the patient was found to have intermittent involuntary movement of the left hand and constant involuntary movement of the right hand. The patient is unable to provide any information about this abnormal movements as he is now disoriented. PAST MEDICAL HISTORY: Significant for left hemispheric infarct resulted in right dense hemiparesis, more prominent in the right upper extremity; hypertension, hyperlipidemia, pulmonary embolism, dementia. PAST SURGICAL HISTORY: Positive for anxiety, depressions and impulse disorder. FAMILY HISTORY: Noncontributory. SOCIAL HISTORY: The patient is a resident at [facility] in [facility]. He denies smoking, alcohol drinking or illicit drug use. CURRENT MEDICATIONS: Omnicef 300 mg b.i.d., Lipitor 10 mg at bedtime, Depakote 250 mg b.i.d., Atrovent nasal spray twice a day, MiraLax p.r.n. for constipation, vitamin B12 1000 mcg p.o. daily, vitamin D 1000 units daily, sertraline 125 mg daily, senna 8.6 mg daily for constipation, potassium chloride 40 mEq daily, aspirin 81 mg p.o. daily, vitamin C 500 mg p.o. daily, nicotine 1 patch 14 mg daily, Seroquel 25 mg b.i.d. p.r.n. for agitation, milk of magnesia, and Tylenol 650 mg p.o. every 6 hours p.r.n. for pain. ALLERGIES: No known drug allergies. REVIEW OF SYSTEMS: A 10-point review of system was performed as mentioned above in history of present illness, otherwise unremarkable. PHYSICAL EXAMINATION: GENERAL: A thin male in no acute distress. He weighs 61 kg. VITAL SIGNS: Blood pressure 128/75, respiratory rate 19, pulse is 88 and regular, temperature 99, oxygen saturation 98% on room air. HEENT: Normocephalic, atraumatic; otherwise, unremarkable. NECK: Supple. Negative for carotid bruit, lymphadenopathy or thyromegaly. LUNGS: Clear to A and P. CARDIOVASCULAR: Regular rate and rhythm, normal S1, S2. ABDOMEN: Soft. Bowel sounds positive. EXTREMITIES: Negative for cyanosis, clubbing or pedal edema. NEUROLOGIC: Mental status: The patient is alert, but disoriented to time, place and person. Speech is monotone and no language dysfunction. Memory, judgment and abstracting thinking are fair. The patient denies hallucination or delusion. Cranial nerves: Visual marques appeared to be intact. The pupils are equal. Extraocular movements are intact. No nystagmus. There is no apparent facial motor asymmetry. Hearing is diminished bilaterally. The palate is elevated symmetrically. Sternocleidomastoid muscles are powerful bilaterally. The patient shrugs his shoulders symmetrically. Motor exam: No focal muscle bulk was seen. The strength is 4/5 in the right upper and lower extremity due to hemiparesis. The strength is -4/5 in the right upper and lower extremities and 4/5 in the left upper and lower extremities consistent with right hemiparesis. Sensory examination revealed diminished pinprick and light touch senses over the right upper and lower extremities. Deep tendon reflexes were symmetric and hypoactive with absent Achilles responses. Gait: The stance is unsteady. The patient uses a walker for ambulation with assistance. LABORATORY DATA: From the day of admission on from 05/11/2021 reveal white blood cells of 5.8 thousand, hemoglobin 12.8, hematocrit 37.2, platelet count 161,000. Chemistry revealed a sodium of 141, potassium 4, chloride 107, CO2 of 25, BUN 19, creatinine 1, glucose 94, A1c is 5, calcium 8.1. Normal magnesium, low iron, low TIBC. Liver enzymes are low. Lipid profile reveal a normal findings. Vitamin B12 is 1196 with normal vitamin D and TSH. Coagulation: D-dimer at 1.05. Urinalysis is negative for urinary tract infections. Valproic acid is on 05/11/2021 was low at 15. COVID-19 PCR not detected. IMPRESSION: 1. Resting tremor and involuntarily movements of the hands, more prominent on the left side of uncertain etiology probably due to previous stroke versus unspecified involuntarily movements. 2. Multiple medical problems include longstanding history of hypertension, hyperlipidemia, pulmonary embolism and a stroke. 3. Multiple psychiatric problems include depressions, dementia, anxiety disorder and impulse disorder with aggressive behavior. RECOMMENDATIONS: 1. We will start patient on immediate release of carbidopa/levodopa 25/100 p.o. t.i.d. for involuntary movements of the hands. 2. Continue with current medical and psychiatric care. LUIS DR: Goran TID: [id number]
[2021-05-16 06:07] VITALS: BP 115/66
[2021-05-16 07:13] LABS: BASO % 0 % (0-3); EOS % 0 % (0-3); HEMATOCRIT 40.1 % (39.0-53.0); HEMOGLOBIN 13.3 g/dL (13.0-17.5); LYMPH % 16 % (24-48); MEAN CORPUSCULAR HEMOGLOBIN 32 pg (25-35); MEAN CORPUSCULAR HGB CONC 33 g/dL (31-37); MEAN CORPUSCULAR VOLUME 96 fL (79-100); MONO # 0.5 x10^3/uL (0.0-1.1); MONO % 8 % (0-9); NEUT % 76 % (31-73); PLATELET COUNT 173 x10^3/uL (140-400); RED BLOOD COUNT 4.17 x10^6/uL (4.30-5.70); RED CELL DISTRIBUTION WIDTH 13.8 % (11.5-14.5); WHITE BLOOD COUNT 6.6 x10^3/uL (4.0-11.0)
[2021-05-16 07:29] LABS: ALBUMIN 3.2 g/dL (3.4-5.0); ALK PHOS 74 U/L (46-116); ALT (SGPT) 16 U/L (16-63); ANION GAP 9 (6-14); AST (SGOT) 13 U/L (15-37); BLOOD UREA NITROGEN 19 mg/dL (8-26); BUN/CREATININE RATIO 27 (6-20); CALCIUM 8.6 mg/dL (8.5-10.1); CARBON DIOXIDE 27 mmol/L (21-32); CHLORIDE 107 mmol/L (98-107); CREATININE 0.7 mg/dL (0.7-1.3); GFR 110.5; GLUCOSE 83 mg/dL (70-99); POTASSIUM 4.8 mmol/L (3.5-5.1); SODIUM 143 mmol/L (136-145); TOTAL BILIRUBIN 0.3 mg/dL (0.2-1.0); TOTAL PROTEIN 6.4 g/dL (6.4-8.2)
[2021-05-16 08:15] LABS: VAL ACID 42 mcg/mL (50-100)
[2021-05-16] MEDS: SERTRALINE 50 MG TABLET. PO SCH (09:32)
[2021-05-16] MEDS: CARBIDOPA/LEVODOPA 25/100MG TABLET PO SCH ×3 (09:32→19:59)
[2021-05-16] MEDS: CHOLECALCIFEROL (VITAMIN D3) 1,000 UNIT TABLET PO SCH (09:32)
[2021-05-16] MEDS: ASPIRIN CHEWABLE 81 MG TABLET. PO SCH (09:32)
[2021-05-16] MEDS: CEFDINIR 300 MG CAPSULE PO SCH ×2 (09:32→19:59)
[2021-05-16] MEDS: POTASSIUM CHLORIDE 20 MEQ TABLET.ER. PO SCH (09:32)
[2021-05-16] MEDS: DIVALPROEX 125 MG CAP.SPRINK PO SCH ×2 (09:33→15:00)
[2021-05-16] MEDS: POLYETHYLENE GLYCOL 3350 17 GM PACKET. PO SCH (09:33)
[2021-05-16] MEDS: LACTOBACILLUS RHAMNOSUS GG 1 CAPSULE. PO SCH ×2 (09:33→19:59)
[2021-05-16] MEDS: NICOTINE 14MG PATCH. TD SCH (09:33)
[2021-05-16] MEDS: ASCORBIC ACID 500 MG TABLET PO SCH (09:33)
[2021-05-16] MEDS: SENNOSIDES 8.6 MG TABLET PO SCH (09:33)
[2021-05-16] MEDS: IPRATROPIUM BROMIDE 0.06% NASAL SPRAY 15ML BOTTLE NS SCH ×2 (09:33→19:59)
[2021-05-16] MEDS: ATORVASTATIN CALCIUM 10 MG TABLET. PO SCH (19:59)
--- NOTE | 2021-05-16 21:39 | PDOC ---
Exam Note: Daren Note: Please also refer to the separate dictated note~for this date of service dictated separately.~Patient seen individually. Discussed the patient with Nursing staff reviewed the chart.~Reviewed interim history and current functioning. Reviewed vital signs,~Labs/ Radiology~and current medications noted below. Continue current treatment with the changes noted in the dictated addendum note Assessment: Vital Signs/I&O: Vital Signs Date Time Temp Pulse Resp B/P (MAP) Pulse Ox O2 Delivery O2 Flow Rate FiO2 05/16/21 06:07 97.6 72 16 115/66 (82) 93 05/13/21 05:48 Room Air I & O 05/15/21 05/15/21 05/16/21 15:00 23:00 07:00 Intake Total 440 ml 240 ml 60 ml Balance 440 ml 240 ml 60 ml Labs: Laboratory Tests Test 05/16/21 05:30 05/16/21 06:38 SARS-CoV-2 (PCR) Not detected (NOT DETECTD) White Blood Count 6.6 x10^3/uL (4.0-11.0) Red Blood Count 4.17 x10^6/uL (4.30-5.70) L Hemoglobin 13.3 g/dL (13.0-17.5) Hematocrit 40.1 % (39.0-53.0) Mean Corpuscular Volume 96 fL (79-100) Mean Corpuscular Hemoglobin 32 pg (25-35) Mean Corpuscular Hemoglobin Concent 33 g/dL (31-37) Red Cell Distribution Width 13.8 % (11.5-14.5) Platelet Count 173 x10^3/uL (140-400) Neutrophils (%) (Auto) 76 % (31-73) H Lymphocytes (%) (Auto) 16 % (24-48) L Monocytes (%) (Auto) 8 % (0-9) Eosinophils (%) (Auto) 0 % (0-3) Basophils (%) (Auto) 0 % (0-3) Neutrophils # (Auto) 5.0 x10^3uL (1.8-7.7) Lymphocytes # (Auto) 1.0 x10^3/uL (1.0-4.8) Monocytes # (Auto) 0.5 x10^3/uL (0.0-1.1) Eosinophils # (Auto) 0.0 x10^3/uL (0.0-0.7) Basophils # (Auto) 0.0 x10^3/uL (0.0-0.2) Sodium Level 143 mmol/L (136-145) Potassium Level 4.8 mmol/L (3.5-5.1) Chloride Level 107 mmol/L (98-107) Carbon Dioxide Level 27 mmol/L (21-32) Anion Gap 9 (6-14) Blood Urea Nitrogen 19 mg/dL (8-26) Creatinine 0.7 mg/dL (0.7-1.3) Estimated GFR (Cockcroft-Gault) 110.5 BUN/Creatinine Ratio 27 (6-20) H Glucose Level 83 mg/dL (70-99) Calcium Level 8.6 mg/dL (8.5-10.1) Total Bilirubin 0.3 mg/dL (0.2-1.0) Aspartate Amino Transferase (AST) 13 U/L (15-37) L Alanine Aminotransferase (ALT) 16 U/L (16-63) Alkaline Phosphatase 74 U/L (46-116) Total Protein 6.4 g/dL (6.4-8.2) Albumin 3.2 g/dL (3.4-5.0) L Albumin/Globulin Ratio 1.0 (1.0-1.7) Valproic Acid Level 42 mcg/mL (50-100) L Valproic Acid Last Dose Date 05/15/21 Valproic Acid Last Dose Time 1600 Current Medications: Meds: Laboratory Tests Test 05/16/21 05:30 05/16/21 06:38 Coronavirus (COVID-19)(PCR) Not detected White Blood Count 6.6 x10^3/uL Red Blood Count 4.17 x10^6/uL Hemoglobin 13.3 g/dL Hematocrit 40.1 % Mean Corpuscular Volume 96 fL Mean Corpuscular Hemoglobin 32 pg Mean Corpuscular Hemoglobin Concent 33 g/dL Red Cell Distribution Width 13.8 % Platelet Count 173 x10^3/uL Neutrophils (%) (Auto) 76 % Lymphocytes (%) (Auto) 16 % Monocytes (%) (Auto) 8 % Eosinophils (%) (Auto) 0 % Basophils (%) (Auto) 0 % Neutrophils # (Auto) 5.0 x10^3uL Lymphocytes # (Auto) 1.0 x10^3/uL Monocytes # (Auto) 0.5 x10^3/uL Eosinophils # (Auto) 0.0 x10^3/uL Basophils # (Auto) 0.0 x10^3/uL Sodium Level 143 mmol/L Potassium Level 4.8 mmol/L Chloride Level 107 mmol/L Carbon Dioxide Level 27 mmol/L Anion Gap 9 Blood Urea Nitrogen 19 mg/dL Creatinine 0.7 mg/dL Estimated GFR (Cockcroft-Gault) 110.5 BUN/Creatinine Ratio 27 Glucose Level 83 mg/dL Calcium Level 8.6 mg/dL Total Bilirubin 0.3 mg/dL Aspartate Amino Transf (AST/SGOT) 13 U/L Alanine Aminotransferase (ALT/SGPT) 16 U/L Alkaline Phosphatase 74 U/L Total Protein 6.4 g/dL Albumin 3.2 g/dL Albumin/Globulin Ratio 1.0 Valproic Acid (Depakene) Level 42 mcg/mL Valproic Acid Last Dose Date 05/15/21 Valproic Acid Last Dose Time 1600 Current Medications Medications (Trade) Dose Ordered Sig/Daisy Route PRN Reason Start Time Stop Time Status Last Admin Dose Admin Acetaminophen (Tylenol) 650 mg PRN Q6HRS PRN PO MILD PAIN / TEMP > 100.3'F 05/11/21 16:15 Multi-Ingredient Ointment (Analgesic [place]) 1 eva PRN QID PRN TP MUSCLE PAIN 05/11/21 16:15 Al Hydroxide/Mg Hydroxide (Mylanta Plus Xs) 15 ml PRN AFTMEALHC PRN PO DYSPEPSIA 05/11/21 16:15 Magnesium Hydroxide (Milk Of Magnesia) 2,400 mg PRN QHS PRN PO CONSTIPATION 05/11/21 16:15 Nicotine (Nicoderm Cq 14mg Patch) 1 patch DAILY TD 05/12/21 09:00 05/16/21 09:33 Ascorbic Acid (Vitamin C) 500 mg DAILY PO 05/12/21 09:00 05/16/21 09:33 Aspirin (Aspirin Chewable) 81 mg DAILY PO 05/12/21 09:00 05/16/21 09:32 Nicotine (Nicoderm Cq 14mg Patch) 1 patch DAILY TD 05/12/21 09:00 UNV Potassium Chloride (Klor-Con) 40 meq DAILY PO 05/12/21 09:00 05/16/21 09:32 Sennosides (Senna) 8.6 mg DAILY PO 05/12/21 09:00 05/16/21 09:33 Sertraline HCl (Zoloft) 125 mg DAILY PO 05/12/21 09:00 05/16/21 09:32 Vitamin D (Vitamin D3) 1,000 unit DAILY PO 05/12/21 09:00 05/16/21 09:32 Cyanocobalamin (Vitamin B-12) 1,000 mcg [id number] PO 05/12/21 09:00 05/12/21 08:19 Polyethylene Glycol (miraLAX) 17 gm DAILY PO 05/12/21 09:00 05/16/21 09:33 Atorvastatin Calcium (Lipitor) 10 mg QHS PO 05/12/21 21:00 05/16/21 19:59 Quetiapine Fumarate (SEROquel) 25 mg PRN BID PRN PO AGITATION 05/12/21 07:15 Divalproex Sodium (Depakote Sprinkles) 125 mg [id number] PO 05/12/21 09:00 05/12/21 16:01 DC 05/12/21 08:19 Ipratropium [place] (Atrovent Nasal) 1 spray BID NS 05/12/21 09:00 05/16/21 19:59 Divalproex Sodium (Depakote Sprinkles) 250 mg [id number] PO 05/12/21 16:00 05/16/21 18:09 DC 05/16/21 15:00 Cefdinir (Omnicef) 300 mg BID PO 05/14/21 21:00 05/20/21 22:00 05/16/21 19:59 Lactobacillus Rhamnosus (Culturelle) 1 cap BID PO 05/14/21 21:00 05/16/21 19:59 Carbidopa/Levodopa (Sinemet 25/100) 1 tab TID PO 05/15/21 21:00 05/16/21 19:59 Divalproex Sodium (Depakote Sprinkles) 375 mg [id number] PO 05/17/21 09:00 I have reviewed the current psychotropics carefully including drug interactions. Risk benefit ratio favors no change other than as noted in my dictated progress note. Diagnosis: Problems: (1) Impulse control disorder, unspecified (2) Major depressive disorder, severe (3) Anxiety disorder, unspecified MICHAEL MCKEON MD May 16, 2021 21:39
[2021-05-17 06:19] VITALS: BP 124/84
--- NOTE | 2021-05-17 08:10 | PDOC ---
Exam Note: Daren Note: This note is a late entry for 05/15/2021 covers elements not covered in my initial note. Subjective: The patient was seen individually on 05/15/2021, discussed and reviewed the chart with Shaquille MATIAS. Dr. Kellogg had covered for me for the past two weeks and I have reviewed information, notes and records by Dr. Kellogg. The unit is currently on lockdown for any admissions due to Covid-19 positive status. The patient slept 7-3/4 hours previous night. He remains disorganized, resistive to cares and at times he seems little more organized, was in [place] but unaware of the day and the date. He does have UTI and is on Omnicef. He does have some tremors and we will consult Dr. Kessler for r ecommendations. Review of Systems: Ambulation impaired, in wheelchair. No CV, , pulmonary, eye, ENT system symptoms on review. Reliability poor. Mental Status Exam: The patient is oriented to himself. Insight and judgment, recent and remote memory, attention and concentration, fund of knowledge is poor consistent with his diagnosis. Laboratory Data: Reviewed. Impression: Major neurocognitive disorder, Alzheimer, vascular with delusion, depression, behavioral disturbance. Anxiety disorder unspecified. Impulse control disorder unspecified. Plan: I have carefully reviewed the patients current psychotropics, drug inter actions and risk-benefit ratio. We will maintain Zoloft 125 mg a day, Depakote 250 mg twice a day, Seroquel 25 mg b.i.d. p.r.n. We may adjust Depakote further if behavioral dyscontrol persist despite resolution of the UTI. Assessment: Vital Signs/I&O: Vital Signs Date Time Temp Pulse Resp B/P (MAP) Pulse Ox O2 Delivery O2 Flow Rate FiO2 05/17/21 06:19 97.3 95 20 124/84 (97) 95 Room Air I & O 05/16/21 05/16/21 05/17/21 15:00 23:00 07:00 Intake Total 600 ml 240 ml 0 ml Balance 600 ml 240 ml 0 ml Current Medications: I have reviewed the current psychotropics carefully including drug interactions. Risk benefit ratio favors no change other than as noted in my dictated progress note. Diagnosis: Problems: (1) Impulse control disorder, unspecified (2) Anxiety disorder, unspecified (3) Major neurocognitive disorder (4) Dementia in Alzheimer's disease with delusions (5) Dementia in Alzheimer's disease with depression (6) Dementia of the Alzheimer's type with early onset with behavioral disturbance (7) Dementia, vascular, with delusions (8) Dementia, vascular, with depression MICHAEL MCKEON MD May 17, 2021 08:10
--- NOTE | 2021-05-17 08:23 | PDOC ---
Exam Note: Daren Note: This note is a late entry for 05/16/2021 covers elements not covered in my initial note. Subjective: The patient was seen individually on 05/16/2021, discussed and reviewed the chart with Corinne MATIAS. The unit is currently on lockdown for any admissions due to Covid-19 positive status. The patient slept 5-3/4 hours previous night. The patients valproic acid level is 42 subtherapeutic on 250 mg twice a day. We will increase this to 375 mg twice a day. Check CBC, CMP, valproic acid level in 3 days. Review of Systems: Ambulation impaired, in wheelchair. No CV, , pulmonary, eye, ENT system symptoms on review. I met with him in his room. Reliability poor. Mental Status Exam: The patient is oriented to himself and situation. Speech coherent, repetitive. Abstraction fair. Computation impaired. Language function intact. Attention span short. Mood and affect improved. Laboratory Data: Reviewed. Impression: Major neurocognitive disorder, Alzheimer, vascular with delusion, depression, behavioral disturbance. Anxiety disorder unspecified. Impulse con trol disorder unspecified. Plan: No change from initial note. Assessment: Vital Signs/I&O: Vital Signs Date Time Temp Pulse Resp B/P (MAP) Pulse Ox O2 Delivery O2 Flow Rate FiO2 05/17/21 06:19 97.3 95 20 124/84 (97) 95 Room Air I & O 05/16/21 05/16/21 05/17/21 15:00 23:00 07:00 Intake Total 600 ml 240 ml 0 ml Balance 600 ml 240 ml 0 ml Current Medications: I have reviewed the current psychotropics carefully including drug interactions. Risk benefit ratio favors no change other than as noted in my dictated progress note. Diagnosis: Problems: (1) Impulse control disorder, unspecified (2) Major depressive disorder, severe (3) Anxiety disorder, unspecified (4) Dementia, vascular, with depression (5) Dementia, vascular, with delusions (6) Dementia in Alzheimer's disease with depression (7) Dementia in Alzheimer's disease with delusions (8) Dementia of the Alzheimer's type with early onset with behavioral disturbance (9) Major neurocognitive disorder MICHAEL MCKEON MD May 17, 2021 08:23
[2021-05-17] MEDS: IPRATROPIUM BROMIDE 0.06% NASAL SPRAY 15ML BOTTLE NS SCH ×2 (09:00→20:44)
[2021-05-17] MEDS: ASCORBIC ACID 500 MG TABLET PO SCH (11:00)
[2021-05-17] MEDS: SERTRALINE 50 MG TABLET. PO SCH (11:00)
[2021-05-17] MEDS: CEFDINIR 300 MG CAPSULE PO SCH ×2 (11:00→20:44)
[2021-05-17] MEDS: POLYETHYLENE GLYCOL 3350 17 GM PACKET. PO SCH (11:00)
[2021-05-17] MEDS: DIVALPROEX 125 MG CAP.SPRINK PO SCH ×2 (11:00→15:30)
[2021-05-17] MEDS: CARBIDOPA/LEVODOPA 25/100MG TABLET PO SCH ×3 (11:00→20:44)
[2021-05-17] MEDS: NICOTINE 14MG PATCH. TD SCH (11:00)
[2021-05-17] MEDS: CHOLECALCIFEROL (VITAMIN D3) 1,000 UNIT TABLET PO SCH (11:00)
[2021-05-17] MEDS: ASPIRIN CHEWABLE 81 MG TABLET. PO SCH (11:00)
[2021-05-17] MEDS: POTASSIUM CHLORIDE 20 MEQ TABLET.ER. PO SCH (11:00)
[2021-05-17] MEDS: SENNOSIDES 8.6 MG TABLET PO SCH (11:00)
[2021-05-17] MEDS: LACTOBACILLUS RHAMNOSUS GG 1 CAPSULE. PO SCH ×2 (11:00→20:44)
[2021-05-17 15:54] VITALS: BP 94/54
[2021-05-17] MEDS: ATORVASTATIN CALCIUM 10 MG TABLET. PO SCH (20:44)
--- NOTE | 2021-05-17 21:33 | PDOC ---
Exam Note: Daren Note: Please also refer to the separate dictated note~for this date of service dictated separately.~Patient seen individually. Discussed the patient with Nursing staff reviewed the chart.~Reviewed interim history and current functioning. Reviewed vital signs,~Labs/ Radiology~and current medications noted below. Continue current treatment with the changes noted in the dictated addendum note Assessment: Vital Signs/I&O: Vital Signs Date Time Temp Pulse Resp B/P (MAP) Pulse Ox O2 Delivery O2 Flow Rate FiO2 05/17/21 15:54 98.3 82 20 94/54 (67) 97 05/17/21 06:19 Room Air I & O 05/16/21 05/16/21 05/17/21 15:00 23:00 07:00 Intake Total 600 ml 240 ml 0 ml Balance 600 ml 240 ml 0 ml Current Medications: Meds: Current Medications Medications (Trade) Dose Ordered Sig/Daisy Route PRN Reason Start Time Stop Time Status Last Admin Dose Admin Acetaminophen (Tylenol) 650 mg PRN Q6HRS PRN PO MILD PAIN / TEMP > 100.3'F 05/11/21 16:15 Multi-Ingredient Ointment (Analgesic [place]) 1 eva PRN QID PRN TP MUSCLE PAIN 05/11/21 16:15 Al Hydroxide/Mg Hydroxide (Mylanta Plus Xs) 15 ml PRN AFTMEALHC PRN PO DYSPEPSIA 05/11/21 16:15 Magnesium Hydroxide (Milk Of Magnesia) 2,400 mg PRN QHS PRN PO CONSTIPATION 05/11/21 16:15 Nicotine (Nicoderm Cq 14mg Patch) 1 patch DAILY TD 05/12/21 09:00 05/17/21 11:00 Ascorbic Acid (Vitamin C) 500 mg DAILY PO 05/12/21 09:00 05/17/21 11:00 Aspirin (Aspirin Chewable) 81 mg DAILY PO 05/12/21 09:00 05/17/21 11:00 Nicotine (Nicoderm Cq 14mg Patch) 1 patch DAILY TD 05/12/21 09:00 UNV Potassium Chloride (Klor-Con) 40 meq DAILY PO 05/12/21 09:00 05/17/21 11:00 Sennosides (Senna) 8.6 mg DAILY PO 05/12/21 09:00 05/17/21 11:00 Sertraline HCl (Zoloft) 125 mg DAILY PO 05/12/21 09:00 05/17/21 11:00 Vitamin D (Vitamin D3) 1,000 unit DAILY PO 05/12/21 09:00 05/17/21 11:00 Cyanocobalamin (Vitamin B-12) 1,000 mcg [id number] PO 05/12/21 09:00 05/12/21 08:19 Polyethylene Glycol (miraLAX) 17 gm DAILY PO 05/12/21 09:00 05/17/21 11:00 Atorvastatin Calcium (Lipitor) 10 mg QHS PO 05/12/21 21:00 05/17/21 20:44 Quetiapine Fumarate (SEROquel) 25 mg PRN BID PRN PO AGITATION 05/12/21 07:15 Divalproex Sodium (Depakote Sprinkles) 125 mg [id number] PO 05/12/21 09:00 05/12/21 16:01 DC 05/12/21 08:19 Ipratropium [place] (Atrovent Nasal) 1 spray BID NS 05/12/21 09:00 05/17/21 09:00 Divalproex Sodium (Depakote Sprinkles) 250 mg [id number] PO 05/12/21 16:00 05/16/21 18:09 DC 05/16/21 15:00 Cefdinir (Omnicef) 300 mg BID PO 05/14/21 21:00 05/20/21 22:00 05/17/21 20:44 Lactobacillus Rhamnosus (Culturelle) 1 cap BID PO 05/14/21 21:00 05/17/21 20:44 Carbidopa/Levodopa (Sinemet 25/100) 1 tab TID PO 05/15/21 21:00 05/17/21 20:44 Divalproex Sodium (Depakote Sprinkles) 375 mg [id number] PO 05/17/21 09:00 05/17/21 15:30 Current Medications Medications (Trade) Dose Ordered Sig/Daisy Route PRN Reason Start Time Stop Time Status Last Admin Dose Admin Divalproex Sodium (Depakote Sprinkles) 375 mg BID94 PO 05/17/21 09:00 05/17/21 15:30 I have reviewed the current psychotropics carefully including drug interactions. Risk benefit ratio favors no change other than as noted in my dictated progress note. Diagnosis: Problems: (1) Impulse control disorder, unspecified (2) Major depressive disorder, severe (3) Anxiety disorder, unspecified (4) Dementia, vascular, with depression (5) Dementia, vascular, with delusions (6) Dementia in Alzheimer's disease with depression (7) Dementia in Alzheimer's disease with delusions (8) Dementia of the Alzheimer's type with early onset with behavioral disturbance (9) Major neurocognitive disorder MICHAEL MCKEON MD May 17, 2021 21:33
[2021-05-18 06:14] VITALS: BP 135/83
--- NOTE | 2021-05-18 08:11 | PDOC ---
Exam Note: Daren Note: This note is a late entry for 05/17/2021 covers elements not covered in my initial note. Subjective: The patient was seen on telehealth rounds with Corinne MATIAS on 05/17/2021, discussed and reviewed the chart with Daniella MATIAS. The patient slept 9-1/2 hours previous night. Overall he takes his medications whole. He is aware that he is in the hospital in [place] but unaware of the date. Oral intake is poor. Review of Systems: Ambulation impaired, in wheelchair. No CV, , pulmonary, eye, ENT system symptoms on review. Reliability poor. Mental Status Exam: The patient is oriented to himself and situation. Speech has some latency, coherent. Abstraction fair. Computation impaired. Language function intact. Often verbal response is monosyllabic. I addressed with him circumstances prompting admission including his suicidal attempt and he denied minimized this and made it appear he could not hear me. He seems to dismiss this with limited insight. No suicidal or homicidal ideation. Laboratory Data: Reviewed. Impression: Major neurocognitive disorder, Alzheimer, vascular with delusion, depression, behavioral disturbance. Anxiety disorder unspecified. Impulse control disorder unspecified. Plan: I have carefully reviewed the patients current psychotropics and drug interactions. Risk-benefit ratio favors no change at this time. We will adjust further as clinically indicated. Assessment: Vital Signs/I&O: Vital Signs Date Time Temp Pulse Resp B/P (MAP) Pulse Ox O2 Delivery O2 Flow Rate FiO2 05/18/21 06:14 98.7 81 18 135/83 (100) 96 05/17/21 06:19 Room Air I & O 05/17/21 05/17/21 05/18/21 15:00 23:00 07:00 Intake Total 400 ml 360 ml Balance 400 ml 360 ml Current Medications: Meds: Current Medications Medications (Trade) Dose Ordered Sig/Daisy Route PRN Reason Start Time Stop Time Status Last Admin Dose Admin Divalproex Sodium (Depakote Sprinkles) 375 mg BID94 PO 05/17/21 09:00 05/17/21 15:30 I have reviewed the current psychotropics carefully including drug interactions. Risk benefit ratio favors no change other than as noted in my dictated progress note. Diagnosis: Problems: (1) Impulse control disorder, unspecified (2) Major depressive disorder, severe (3) Anxiety disorder, unspecified (4) Dementia, vascular, with depression (5) Dementia, vascular, with delusions (6) Dementia in Alzheimer's disease with depression (7) Dementia in Alzheimer's disease with delusions (8) Dementia of the Alzheimer's type with early onset with behavioral disturbance (9) Major neurocognitive disorder MICHAEL MCKEON MD May 18, 2021 08:11
[2021-05-18] MEDS: NICOTINE 14MG PATCH. TD SCH (08:57)
[2021-05-18] MEDS: POLYETHYLENE GLYCOL 3350 17 GM PACKET. PO SCH (08:57)
[2021-05-18] MEDS: POTASSIUM CHLORIDE 20 MEQ TABLET.ER. PO SCH (08:58)
[2021-05-18] MEDS: ASCORBIC ACID 500 MG TABLET PO SCH (08:59)
[2021-05-18] MEDS: ASPIRIN CHEWABLE 81 MG TABLET. PO SCH (08:59)
[2021-05-18] MEDS: CEFDINIR 300 MG CAPSULE PO SCH ×2 (08:59→20:32)
[2021-05-18] MEDS: SENNOSIDES 8.6 MG TABLET PO SCH (08:59)
[2021-05-18] MEDS: DIVALPROEX 125 MG CAP.SPRINK PO SCH ×2 (08:59→17:23)
[2021-05-18] MEDS: CARBIDOPA/LEVODOPA 25/100MG TABLET PO SCH ×3 (08:59→20:32)
[2021-05-18] MEDS: CHOLECALCIFEROL (VITAMIN D3) 1,000 UNIT TABLET PO SCH (08:59)
[2021-05-18] MEDS: SERTRALINE 50 MG TABLET. PO SCH (08:59)
[2021-05-18] MEDS: LACTOBACILLUS RHAMNOSUS GG 1 CAPSULE. PO SCH ×2 (08:59→20:32)
[2021-05-18] MEDS: IPRATROPIUM BROMIDE 0.06% NASAL SPRAY 15ML BOTTLE NS SCH ×2 (09:00→20:32)
[2021-05-18 16:32] VITALS: BP 116/75
[2021-05-18] MEDS: ATORVASTATIN CALCIUM 10 MG TABLET. PO SCH (20:32)
--- NOTE | 2021-05-18 22:13 | PDOC ---
Exam Note: Daren Note: Please also refer to the separate dictated note~for this date of service dictated separately.~Patient seen individually. Discussed the patient with Nursing staff reviewed the chart.~Reviewed interim history and current functioning. Reviewed vital signs,~Labs/ Radiology~and current medications noted below. Continue current treatment with the changes noted in the dictated addendum note Assessment: Vital Signs/I&O: Vital Signs Date Time Temp Pulse Resp B/P (MAP) Pulse Ox O2 Delivery O2 Flow Rate FiO2 05/18/21 16:32 97.7 86 20 116/75 (89) 99 Room Air I & O 05/17/21 05/17/21 05/18/21 15:00 23:00 07:00 Intake Total 400 ml 360 ml Balance 400 ml 360 ml Current Medications: Meds: Current Medications Medications (Trade) Dose Ordered Sig/Daisy Route PRN Reason Start Time Stop Time Status Last Admin Dose Admin Acetaminophen (Tylenol) 650 mg PRN Q6HRS PRN PO MILD PAIN / TEMP > 100.3'F 05/11/21 16:15 Multi-Ingredient Ointment (Analgesic [place]) 1 eva PRN QID PRN TP MUSCLE PAIN 05/11/21 16:15 Al Hydroxide/Mg Hydroxide (Mylanta Plus Xs) 15 ml PRN AFTMEALHC PRN PO DYSPEPSIA 05/11/21 16:15 Magnesium Hydroxide (Milk Of Magnesia) 2,400 mg PRN QHS PRN PO CONSTIPATION 05/11/21 16:15 Nicotine (Nicoderm Cq 14mg Patch) 1 patch DAILY TD 05/12/21 09:00 05/18/21 08:57 Ascorbic Acid (Vitamin C) 500 mg DAILY PO 05/12/21 09:00 05/18/21 08:59 Aspirin (Aspirin Chewable) 81 mg DAILY PO 05/12/21 09:00 05/18/21 08:59 Nicotine (Nicoderm Cq 14mg Patch) 1 patch DAILY TD 05/12/21 09:00 UNV Potassium Chloride (Klor-Con) 40 meq DAILY PO 05/12/21 09:00 05/18/21 08:58 Sennosides (Senna) 8.6 mg DAILY PO 05/12/21 09:00 05/18/21 08:59 Sertraline HCl (Zoloft) 125 mg DAILY PO 05/12/21 09:00 2/3/22 18:20 DC 05/18/21 08:59 Vitamin D (Vitamin D3) 1,000 unit DAILY PO 05/12/21 09:00 05/18/21 08:59 Cyanocobalamin (Vitamin B-12) 1,000 mcg [id number] PO 05/12/21 09:00 05/12/21 08:19 Polyethylene Glycol (miraLAX) 17 gm DAILY PO 05/12/21 09:00 05/18/21 08:57 Atorvastatin Calcium (Lipitor) 10 mg QHS PO 05/12/21 21:00 05/18/21 20:32 Quetiapine Fumarate (SEROquel) 25 mg PRN BID PRN PO AGITATION 05/12/21 07:15 Divalproex Sodium (Depakote Sprinkles) 125 mg [id number] PO 05/12/21 09:00 05/12/21 16:01 DC 05/12/21 08:19 Ipratropium [place] (Atrovent Nasal) 1 spray BID NS 05/12/21 09:00 05/18/21 20:32 Divalproex Sodium (Depakote Sprinkles) 250 mg [id number] PO 05/12/21 16:00 05/16/21 18:09 DC 05/16/21 15:00 Cefdinir (Omnicef) 300 mg BID PO 05/14/21 21:00 05/20/21 22:00 05/18/21 20:32 Lactobacillus Rhamnosus (Culturelle) 1 cap BID PO 05/14/21 21:00 05/18/21 20:32 Carbidopa/Levodopa (Sinemet 25/100) 1 tab TID PO 05/15/21 21:00 05/18/21 20:32 Divalproex Sodium (Depakote Sprinkles) 375 mg [id number] PO 05/17/21 09:00 05/18/21 17:23 Sertraline HCl (Zoloft) 150 mg DAILY PO 05/19/21 09:00 I have reviewed the current psychotropics carefully including drug interactions. Risk benefit ratio favors no change other than as noted in my dictated progress note. Diagnosis: Problems: (1) Impulse control disorder, unspecified (2) Major depressive disorder, severe (3) Anxiety disorder, unspecified (4) Dementia, vascular, with depression (5) Dementia, vascular, with delusions (6) Dementia in Alzheimer's disease with depression (7) Dementia in Alzheimer's disease with delusions (8) Dementia of the Alzheimer's type with early onset with behavioral disturbance (9) Major neurocognitive disorder MICHAEL MCKEON MD May 18, 2021 22:13
[2021-05-19 06:19] VITALS: BP 133/75
[2021-05-19] MEDS: POLYETHYLENE GLYCOL 3350 17 GM PACKET. PO SCH (08:03)
[2021-05-19] MEDS: ASCORBIC ACID 500 MG TABLET PO SCH (08:04)
[2021-05-19] MEDS: NICOTINE 14MG PATCH. TD SCH (08:04)
[2021-05-19] MEDS: ASPIRIN CHEWABLE 81 MG TABLET. PO SCH (08:05)
[2021-05-19] MEDS: CHOLECALCIFEROL (VITAMIN D3) 1,000 UNIT TABLET PO SCH (08:05)
[2021-05-19] MEDS: CARBIDOPA/LEVODOPA 25/100MG TABLET PO SCH ×3 (08:05→19:48)
[2021-05-19] MEDS: CEFDINIR 300 MG CAPSULE PO SCH ×2 (08:05→19:49)
[2021-05-19] MEDS: LACTOBACILLUS RHAMNOSUS GG 1 CAPSULE. PO SCH ×2 (08:05→19:48)
[2021-05-19] MEDS: SENNOSIDES 8.6 MG TABLET PO SCH (08:05)
[2021-05-19] MEDS: POTASSIUM CHLORIDE 20 MEQ TABLET.ER. PO SCH (08:06)
[2021-05-19] MEDS: IPRATROPIUM BROMIDE 0.06% NASAL SPRAY 15ML BOTTLE NS SCH ×2 (08:06→19:49)
[2021-05-19] MEDS: DIVALPROEX 125 MG CAP.SPRINK PO SCH ×2 (08:06→17:02)
[2021-05-19] MEDS: SERTRALINE 50 MG TABLET. PO SCH (09:00)
[2021-05-19 16:07] VITALS: BP 119/69
[2021-05-19] MEDS: ATORVASTATIN CALCIUM 10 MG TABLET. PO SCH (19:49)
--- NOTE | 2021-05-19 21:55 | PDOC ---
Exam Note: Daren Note: Please also refer to the separate dictated note~for this date of service dictated separately.~Patient seen individually. Discussed the patient with Nursing staff reviewed the chart.~Reviewed interim history and current functioning. Reviewed vital signs,~Labs/ Radiology~and current medications noted below. Continue current treatment with the changes noted in the dictated addendum note Assessment: Vital Signs/I&O: Vital Signs Date Time Temp Pulse Resp B/P (MAP) Pulse Ox O2 Delivery O2 Flow Rate FiO2 05/19/21 16:07 97.9 78 17 119/69 (86) 98 Room Air I & O 05/18/21 05/18/21 05/19/21 15:00 23:00 07:00 Intake Total 840 ml Balance 840 ml Labs: Laboratory Tests Test 05/19/21 06:00 SARS-CoV-2 (PCR) Not detected (NOT DETECTD) Current Medications: Meds: Laboratory Tests Test 05/19/21 06:00 Coronavirus (COVID-19)(PCR) Not detected Current Medications Medications (Trade) Dose Ordered Sig/Daisy Route PRN Reason Start Time Stop Time Status Last Admin Dose Admin Acetaminophen (Tylenol) 650 mg PRN Q6HRS PRN PO MILD PAIN / TEMP > 100.3'F 05/11/21 16:15 Multi-Ingredient Ointment (Analgesic [place]) 1 eva PRN QID PRN TP MUSCLE PAIN 05/11/21 16:15 Al Hydroxide/Mg Hydroxide (Mylanta Plus Xs) 15 ml PRN AFTMEALHC PRN PO DYSPEPSIA 05/11/21 16:15 Magnesium Hydroxide (Milk Of Magnesia) 2,400 mg PRN QHS PRN PO CONSTIPATION 05/11/21 16:15 Nicotine (Nicoderm Cq 14mg Patch) 1 patch DAILY TD 05/12/21 09:00 05/19/21 08:04 Ascorbic Acid (Vitamin C) 500 mg DAILY PO 05/12/21 09:00 05/19/21 08:04 Aspirin (Aspirin Chewable) 81 mg DAILY PO 05/12/21 09:00 05/19/21 08:05 Nicotine (Nicoderm Cq 14mg Patch) 1 patch DAILY TD 05/12/21 09:00 UNV Potassium Chloride (Klor-Con) 40 meq DAILY PO 05/12/21 09:00 05/19/21 08:06 Sennosides (Senna) 8.6 mg DAILY PO 05/12/21 09:00 05/19/21 08:05 Sertraline HCl (Zoloft) 125 mg DAILY PO 05/12/21 09:00 05/18/21 18:20 DC 05/18/21 08:59 Vitamin D (Vitamin D3) 1,000 unit DAILY PO 05/12/21 09:00 05/19/21 08:05 Cyanocobalamin (Vitamin B-12) 1,000 mcg [id number] PO 05/12/21 09:00 05/12/21 08:19 Polyethylene Glycol (miraLAX) 17 gm DAILY PO 05/12/21 09:00 05/19/21 08:03 Atorvastatin Calcium (Lipitor) 10 mg QHS PO 05/12/21 21:00 05/19/21 19:49 Quetiapine Fumarate (SEROquel) 25 mg PRN BID PRN PO AGITATION 05/12/21 07:15 05/19/21 19:14 DC 05/19/21 09:35 Divalproex Sodium (Depakote Sprinkles) 125 mg [id number] PO 05/12/21 09:00 05/12/21 16:01 DC 05/12/21 08:19 Ipratropium [place] (Atrovent Nasal) 1 spray BID NS 05/12/21 09:00 05/19/21 19:49 Divalproex Sodium (Depakote Sprinkles) 250 mg [id number] PO 05/12/21 16:00 05/16/21 18:09 DC 05/16/21 15:00 Cefdinir (Omnicef) 300 mg BID PO 05/14/21 21:00 05/20/21 22:00 05/19/21 19:49 Lactobacillus Rhamnosus (Culturelle) 1 cap BID PO 05/14/21 21:00 05/19/21 19:48 Carbidopa/Levodopa (Sinemet 25/100) 1 tab TID PO 05/15/21 21:00 05/19/21 19:48 Divalproex Sodium (Depakote Sprinkles) 375 mg [id number] PO 05/17/21 09:00 05/19/21 17:02 Sertraline HCl (Zoloft) 150 mg DAILY PO 05/19/21 09:00 05/19/21 09:00 Quetiapine Fumarate (SEROquel) 25 mg 0900,1700 PO 05/20/21 09:00 Current Medications Medications (Trade) Dose Ordered Sig/Daisy Route PRN Reason Start Time Stop Time Status Last Admin Dose Admin Sertraline HCl (Zoloft) 150 mg DAILY PO 05/19/21 09:00 05/19/21 09:00 I have reviewed the current psychotropics carefully including drug interactions. Risk benefit ratio favors no change other than as noted in my dictated progress note. Diagnosis: Problems: (1) Impulse control disorder, unspecified (2) Major depressive disorder, severe (3) Anxiety disorder, unspecified (4) Dementia, vascular, with depression (5) Dementia, vascular, with delusions (6) Dementia in Alzheimer's disease with depression (7) Dementia in Alzheimer's disease with delusions (8) Dementia of the Alzheimer's type with early onset with behavioral disturbance (9) Major neurocognitive disorder MICHAEL MCKEON MD May 19, 2021 21:55
[2021-05-20 06:21] VITALS: BP 108/72
--- NOTE | 2021-05-20 08:03 | PDOC ---
Exam Note: Daren Note: This note is a late entry for 05/18/2021 covers elements not covered in my initial note. Subjective: The patient was reviewed at treatment team meeting in the morning on 05/18/2021 with Eva Troncoso, Amanda Mobley, and Maria Esther Piña (family welfare social work professor), Clara, activity therapy, Corinne and Daniella MATIAS, discussed and reviewed the chart. The patient slept 7 hours previous night. He was also seen individually in the evening. Appetite 75%. He continues to deny he tried to hurt himself states he was just checking the depth of the manning when he rolled his wheelchair into the manning. He tends to pocket food even though he is given double portion, he does not eat very well. He prefers to stay in bed rather than his chair. Review of Systems: Ambulation impaired, in wheelchair. No CV, , pulmonary, eye, ENT system symptoms on review. Mental Status Exam: The patient is oriented to himself and situation. Speech coherent difficult to understand at times. Abstraction fair. Computation impaired. Language function intact. Attention span short. Mood and affect kj ewhat labile. Laboratory Data: Reviewed. Impression: Major depressive disorder recurrent. Mild cognitive impairment versus major neurocognitive disorder, Alzheimer, vascular with delusion, depression. Anxiety disorder unspecified. Impulse control disorder unspecified. Plan: Increase Zoloft from 125 mg a day to 150 mg a day. Continue rest of the psychotropics, Depakote, Seroquel and he is also on Sinemet. Adjust further as clinically indicated. Assessment: Vital Signs/I&O: Vital Signs Date Time Temp Pulse Resp B/P (MAP) Pulse Ox O2 Delivery O2 Flow Rate FiO2 05/20/21 06:21 96.8 58 20 108/72 (84) 98 05/19/21 16:07 Room Air I & O 05/19/21 05/19/21 05/20/21 15:00 23:00 07:00 Intake Total 760 ml 840 ml Balance 760 ml 840 ml Current Medications: Meds: Current Medications Medications (Trade) Dose Ordered Sig/Daisy Route PRN Reason Start Time Stop Time Status Last Admin Dose Admin Sertraline HCl (Zoloft) 150 mg DAILY PO 05/19/21 09:00 2/4/22 09:00 I have reviewed the current psychotropics carefully including drug interactions. Risk benefit ratio favors no change other than as noted in my dictated progress note. Diagnosis: Problems: (1) Mild cognitive impairment (2) Major depressive disorder, recurrent episode (3) Impulse control disorder, unspecified (4) Anxiety disorder, unspecified (5) Dementia, vascular, with depression (6) Dementia, vascular, with delusions (7) Dementia in Alzheimer's disease with depression (8) Dementia in Alzheimer's disease with delusions (9) Dementia of the Alzheimer's type with early onset with behavioral disturba nce (10) Major neurocognitive disorder MICHAEL MCKEON MD May 20, 2021 08:03
--- NOTE | 2021-05-20 08:12 | PDOC ---
Exam Note: Daren Note: This note is a late entry for 05/19/2021 covers elements not covered in my initial note. Subjective: The patient was seen individually on 05/19/2021, discussed and reviewed the chart with Daniella MATIAS. The patient slept 7 hours previous night. He is alert and oriented, coming out more in his room. He got angry at the nursing staff, threw his diaper and was taking fecal matter from his diaper and trying to throw at the nursing staff. I addressed this with him. Insight is limited. Review of Systems: Ambulation impaired, in wheelchair. No CV, , pulmonary, eye, ENT system symptoms on review. Reliability poor. Mental Status Exam: The patient is oriented to himself and situation. Speech has some latency, coherent, at times difficult to understand. Abstraction fair. Computation impaired. Language function intact. Mood and affect remains anxious, labile. Laboratory Data: Reviewed. Impression: Major depressive disorder recurrent. Mild cognitive impairment versus major neurocognitive disorder, Alzheimer, vascular with delusion, depression, behavioral disturbance. Anxiety disorder unspecified. Impulse control disorder unspecified. Plan: The patient is currently on Seroquel 25 mg b.i.d. p.r.n. We will change this to schedule. Continue rest of the psychotropics unchanged. Zoloft, Depakote, Sinemet. Adjust further as clinically indicated. Assessment: Vital Signs/I&O: Vital Signs Date Time Temp Pulse Resp B/P (MAP) Pulse Ox O2 Delivery O2 Flow Rate FiO2 05/20/21 06:21 96.8 58 20 108/72 (84) 98 05/19/21 16:07 Room Air I & O 05/19/21 05/19/21 05/20/21 15:00 23:00 07:00 Intake Total 760 ml 840 ml Balance 760 ml 840 ml Current Medications: Meds: Current Medications Medications (Trade) Dose Ordered Sig/Daisy Route PRN Reason Start Time Stop Time Status Last Admin Dose Admin Sertraline HCl (Zoloft) 150 mg DAILY PO 05/19/21 09:00 05/19/21 09:00 I have reviewed the current psychotropics carefully including drug interactions. Risk benefit ratio favors no change other than as noted in my dictated progress note. Diagnosis: Problems: (1) Impulse control disorder, unspecified (2) Anxiety disorder, unspecified (3) Dementia, vascular, with depression (4) Dementia, vascular, with delusions (5) Dementia in Alzheimer's disease with depression (6) Dementia in Alzheimer's disease with delusions (7) Dementia of the Alzheimer's type with early onset with behavioral disturbance (8) Major neurocognitive disorder (9) Major depressive disorder, recurrent episode (10) Mild cognitive impairment MICHAEL MCKEON MD May 20, 2021 08:12
[2021-05-20] MEDS: IPRATROPIUM BROMIDE 0.06% NASAL SPRAY 15ML BOTTLE NS SCH ×2 (08:45→21:01)
[2021-05-20] MEDS: NICOTINE 14MG PATCH. TD SCH (08:46)
[2021-05-20] MEDS: POLYETHYLENE GLYCOL 3350 17 GM PACKET. PO SCH (08:46)
[2021-05-20] MEDS: CARBIDOPA/LEVODOPA 25/100MG TABLET PO SCH ×3 (08:46→21:00)
[2021-05-20] MEDS: DIVALPROEX 125 MG CAP.SPRINK PO SCH ×2 (08:46→16:26)
[2021-05-20] MEDS: ASCORBIC ACID 500 MG TABLET PO SCH (08:46)
[2021-05-20] MEDS: CEFDINIR 300 MG CAPSULE PO SCH ×2 (08:47→21:00)
[2021-05-20] MEDS: SENNOSIDES 8.6 MG TABLET PO SCH (08:47)
[2021-05-20] MEDS: SERTRALINE 50 MG TABLET. PO SCH (08:47)
[2021-05-20] MEDS: CHOLECALCIFEROL (VITAMIN D3) 1,000 UNIT TABLET PO SCH (08:47)
[2021-05-20] MEDS: ASPIRIN CHEWABLE 81 MG TABLET. PO SCH (08:47)
[2021-05-20] MEDS: QUEtiapine 25 MG TABLET. PO SCH ×2 (08:47→16:26)
[2021-05-20] MEDS: POTASSIUM CHLORIDE 20 MEQ TABLET.ER. PO SCH (08:47)
[2021-05-20] MEDS: LACTOBACILLUS RHAMNOSUS GG 1 CAPSULE. PO SCH ×2 (08:48→21:00)
[2021-05-20 11:31] LABS: BASO % 1 % (0-3); EOS % 0 % (0-3); HEMATOCRIT 41.9 % (39.0-53.0); HEMOGLOBIN 14.3 g/dL (13.0-17.5); LYMPH # 0.8 x10^3/uL (1.0-4.8); LYMPH % 16 % (24-48); MEAN CORPUSCULAR HEMOGLOBIN 33 pg (25-35); MEAN CORPUSCULAR HGB CONC 34 g/dL (31-37); MEAN CORPUSCULAR VOLUME 95 fL (79-100); MONO # 0.4 x10^3/uL (0.0-1.1); MONO % 7 % (0-9); NEUT # 4.1 x10^3uL (1.8-7.7); NEUT % 77 % (31-73); PLATELET COUNT 161 x10^3/uL (140-400); RED BLOOD COUNT 4.39 x10^6/uL (4.30-5.70); RED CELL DISTRIBUTION WIDTH 13.8 % (11.5-14.5); WHITE BLOOD COUNT 5.3 x10^3/uL (4.0-11.0)
[2021-05-20 11:46] LABS: ALBUMIN 3.6 g/dL (3.4-5.0); ALBUMIN/GLOBULIN RATIO 1.1 (1.0-1.7); ALK PHOS 88 U/L (46-116); ALT (SGPT) 14 U/L (16-63); ANION GAP 9 (6-14); AST (SGOT) 18 U/L (15-37); BLOOD UREA NITROGEN 23 mg/dL (8-26); BUN/CREATININE RATIO 29 (6-20); CALCIUM 8.6 mg/dL (8.5-10.1); CARBON DIOXIDE 26 mmol/L (21-32); CHLORIDE 106 mmol/L (98-107); CREATININE 0.8 mg/dL (0.7-1.3); GFR 94.8; GLUCOSE 78 mg/dL (70-99); POTASSIUM 3.9 mmol/L (3.5-5.1); SODIUM 141 mmol/L (136-145); TOTAL BILIRUBIN 0.4 mg/dL (0.2-1.0)
[2021-05-20 11:49] LABS: VAL ACID 51 mcg/mL (50-100)
[2021-05-20 15:43] VITALS: BP 113/68
[2021-05-20] MEDS: ATORVASTATIN CALCIUM 10 MG TABLET. PO SCH (21:00)
--- NOTE | 2021-05-20 21:47 | PDOC ---
Exam Note: Daren Note: Please also refer to the separate dictated note~for this date of service dictated separately.~Patient seen individually. Discussed the patient with Nursing staff reviewed the chart.~Reviewed interim history and current functioning. Reviewed vital signs,~Labs/ Radiology~and current medications noted below. Continue current treatment with the changes noted in the dictated addendum note Assessment: Vital Signs/I&O: Vital Signs Date Time Temp Pulse Resp B/P (MAP) Pulse Ox O2 Delivery O2 Flow Rate FiO2 05/20/21 15:43 98.2 79 19 113/68 (83) 98 05/19/21 16:07 Room Air I & O 05/19/21 05/19/21 05/20/21 14:59 22:59 06:59 Intake Total 760 ml 840 ml Balance 760 ml 840 ml Labs: Laboratory Tests Test 05/20/21 10:57 White Blood Count 5.3 x10^3/uL (4.0-11.0) Red Blood Count 4.39 x10^6/uL (4.30-5.70) Hemoglobin 14.3 g/dL (13.0-17.5) Hematocrit 41.9 % (39.0-53.0) Mean Corpuscular Volume 95 fL (79-100) Mean Corpuscular Hemoglobin 33 pg (25-35) Mean Corpuscular Hemoglobin Concent 34 g/dL (31-37) Red Cell Distribution Width 13.8 % (11.5-14.5) Platelet Count 161 x10^3/uL (140-400) Neutrophils (%) (Auto) 77 % (31-73) H Lymphocytes (%) (Auto) 16 % (24-48) L Monocytes (%) (Auto) 7 % (0-9) Eosinophils (%) (Auto) 0 % (0-3) Basophils (%) (Auto) 1 % (0-3) Neutrophils # (Auto) 4.1 x10^3uL (1.8-7.7) Lymphocytes # (Auto) 0.8 x10^3/uL (1.0-4.8) L Monocytes # (Auto) 0.4 x10^3/uL (0.0-1.1) Eosinophils # (Auto) 0.0 x10^3/uL (0.0-0.7) Basophils # (Auto) 0.0 x10^3/uL (0.0-0.2) Sodium Level 141 mmol/L (136-145) Potassium Level 3.9 mmol/L (3.5-5.1) Chloride Level 106 mmol/L (98-107) Carbon Dioxide Level 26 mmol/L (21-32) Anion Gap 9 (6-14) Blood Urea Nitrogen 23 mg/dL (8-26) Creatinine 0.8 mg/dL (0.7-1.3) Estimated GFR (Cockcroft-Gault) 94.8 BUN/Creatinine Ratio 29 (6-20) H Glucose Level 78 mg/dL (70-99) Calcium Level 8.6 mg/dL (8.5-10.1) Total Bilirubin 0.4 mg/dL (0.2-1.0) Aspartate Amino Transferase (AST) 18 U/L (15-37) Alanine Aminotransferase (ALT) 14 U/L (16-63) L Alkaline Phosphatase 88 U/L (46-116) Total Protein 7.0 g/dL (6.4-8.2) Albumin 3.6 g/dL (3.4-5.0) Albumin/Globulin Ratio 1.1 (1.0-1.7) Valproic Acid Level 51 mcg/mL (50-100) Valproic Acid Last Dose Date 05/19/21 Valproic Acid Last Dose Time 1600 Current Medications: Meds: Laboratory Tests Test 05/20/21 10:57 White Blood Count 5.3 x10^3/uL Red Blood Count 4.39 x10^6/uL Hemoglobin 14.3 g/dL Hematocrit 41.9 % Mean Corpuscular Volume 95 fL Mean Corpuscular Hemoglobin 33 pg Mean Corpuscular Hemoglobin Concent 34 g/dL Red Cell Distribution Width 13.8 % Platelet Count 161 x10^3/uL Neutrophils (%) (Auto) 77 % Lymphocytes (%) (Auto) 16 % Monocytes (%) (Auto) 7 % Eosinophils (%) (Auto) 0 % Basophils (%) (Auto) 1 % Neutrophils # (Auto) 4.1 x10^3uL Lymphocytes # (Auto) 0.8 x10^3/uL Monocytes # (Auto) 0.4 x10^3/uL Eosinophils # (Auto) 0.0 x10^3/uL Basophils # (Auto) 0.0 x10^3/uL Sodium Level 141 mmol/L Potassium Level 3.9 mmol/L Chloride Level 106 mmol/L Carbon Dioxide Level 26 mmol/L Anion Gap 9 Blood Urea Nitrogen 23 mg/dL Creatinine 0.8 mg/dL Estimated GFR (Cockcroft-Gault) 94.8 BUN/Creatinine Ratio 29 Glucose Level 78 mg/dL Calcium Level 8.6 mg/dL Total Bilirubin 0.4 mg/dL Aspartate Amino Transf (AST/SGOT) 18 U/L Alanine Aminotransferase (ALT/SGPT) 14 U/L Alkaline Phosphatase 88 U/L Total Protein 7.0 g/dL Albumin 3.6 g/dL Albumin/Globulin Ratio 1.1 Valproic Acid (Depakene) Level 51 mcg/mL Valproic Acid Last Dose Date 05/19/21 Valproic Acid Last Dose Time 1600 Current Medications Medications (Trade) Dose Ordered Sig/Daisy Route PRN Reason Start Time Stop Time Status Last Admin Dose Admin Acetaminophen (Tylenol) 650 mg PRN Q6HRS PRN PO MILD PAIN / TEMP > 100.3'F 05/11/21 16:15 Multi-Ingredient Ointment (Analgesic [place]) 1 eva PRN QID PRN TP MUSCLE PAIN 05/11/21 16:15 Al Hydroxide/Mg Hydroxide (Mylanta Plus Xs) 15 ml PRN AFTMEALHC PRN PO DYSPEPSIA 05/11/21 16:15 Magnesium Hydroxide (Milk Of Magnesia) 2,400 mg PRN QHS PRN PO CONSTIPATION 05/11/21 16:15 Nicotine (Nicoderm Cq 14mg Patch) 1 patch DAILY TD 05/12/21 09:00 05/20/21 08:46 Ascorbic Acid (Vitamin C) 500 mg DAILY PO 05/12/21 09:00 05/20/21 08:46 Aspirin (Aspirin Chewable) 81 mg DAILY PO 05/12/21 09:00 05/20/21 08:47 Nicotine (Nicoderm Cq 14mg Patch) 1 patch DAILY TD 05/12/21 09:00 UNV Potassium Chloride (Klor-Con) 40 meq DAILY PO 05/12/21 09:00 05/20/21 08:47 Sennosides (Senna) 8.6 mg DAILY PO 05/12/21 09:00 05/20/21 08:47 Sertraline HCl (Zoloft) 125 mg DAILY PO 05/12/21 09:00 05/18/21 18:20 DC 05/18/21 08:59 Vitamin D (Vitamin D3) 1,000 unit DAILY PO 05/12/21 09:00 05/20/21 08:47 Cyanocobalamin (Vitamin B-12) 1,000 mcg [id number] PO 05/12/21 09:00 05/12/21 08:19 Polyethylene Glycol (miraLAX) 17 gm DAILY PO 05/12/21 09:00 05/20/21 08:46 Atorvastatin Calcium (Lipitor) 10 mg QHS PO 05/12/21 21:00 05/20/21 21:00 Quetiapine Fumarate (SEROquel) 25 mg PRN BID PRN PO AGITATION 05/12/21 07:15 05/19/21 19:14 DC 05/19/21 09:35 Divalproex Sodium (Depakote Sprinkles) 125 mg [id number] PO 05/12/21 09:00 05/12/21 16:01 DC 05/12/21 08:19 Ipratropium [place] (Atrovent Nasal) 1 spray BID NS 05/12/21 09:00 05/20/21 21:01 Divalproex Sodium (Depakote Sprinkles) 250 mg [id number] PO 05/12/21 16:00 05/16/21 18:09 DC 05/16/21 15:00 Cefdinir (Omnicef) 300 mg BID PO 05/14/21 21:00 05/20/21 22:00 05/20/21 21:00 Lactobacillus Rhamnosus (Culturelle) 1 cap BID PO 05/14/21 21:00 05/20/21 21:00 Carbidopa/Levodopa (Sinemet 25/100) 1 tab TID PO 05/15/21 21:00 05/20/21 21:00 Divalproex Sodium (Depakote Sprinkles) 375 mg [id number] PO 05/17/21 09:00 05/20/21 16:26 Sertraline HCl (Zoloft) 150 mg DAILY PO 05/19/21 09:00 05/20/21 08:47 Quetiapine Fumarate (SEROquel) 25 mg 0900,1700 PO 05/20/21 09:00 05/20/21 16:26 Olanzapine (ZyPREXA ZYDIS) 2.5 mg PRN Q2HR PRN PO PSYCHOSIS 05/20/21 10:00 Current Medications Medications (Trade) Dose Ordered Sig/Daisy Route PRN Reason Start Time Stop Time Status Last Admin Dose Admin Quetiapine Fumarate (SEROquel) 25 mg 0900,1700 PO 05/20/21 09:00 05/20/21 16:26 I have reviewed the current psychotropics carefully including drug interactions. Risk benefit ratio favors no change other than as noted in my dictated progress note. Diagnosis: Problems: (1) Impulse control disorder, unspecified (2) Anxiety disorder, unspecified (3) Dementia, vascular, with depression (4) Dementia, vascular, with delusions (5) Dementia in Alzheimer's disease with depression (6) Dementia in Alzheimer's disease with delusions (7) Dementia of the Alzheimer's type with early onset with behavioral disturb ance (8) Major neurocognitive disorder (9) Major depressive disorder, recurrent episode (10) Mild cognitive impairment MICHAEL MCKEON MD May 20, 2021 21:47
[2021-05-21 05:48] VITALS: BP 119/64
[2021-05-21] MEDS: ASCORBIC ACID 500 MG TABLET PO SCH (08:55)
[2021-05-21] MEDS: SERTRALINE 50 MG TABLET. PO SCH (08:55)
[2021-05-21] MEDS: DIVALPROEX 125 MG CAP.SPRINK PO SCH ×2 (08:55→16:30)
[2021-05-21] MEDS: CARBIDOPA/LEVODOPA 25/100MG TABLET PO SCH ×3 (08:55→21:30)
[2021-05-21] MEDS: LACTOBACILLUS RHAMNOSUS GG 1 CAPSULE. PO SCH ×2 (08:55→21:30)
[2021-05-21] MEDS: QUEtiapine 25 MG TABLET. PO SCH ×2 (08:55→16:30)
[2021-05-21] MEDS: POLYETHYLENE GLYCOL 3350 17 GM PACKET. PO SCH (08:56)
[2021-05-21] MEDS: CHOLECALCIFEROL (VITAMIN D3) 1,000 UNIT TABLET PO SCH (08:56)
[2021-05-21] MEDS: SENNOSIDES 8.6 MG TABLET PO SCH (08:56)
[2021-05-21] MEDS: POTASSIUM CHLORIDE 20 MEQ TABLET.ER. PO SCH (08:56)
[2021-05-21] MEDS: ASPIRIN CHEWABLE 81 MG TABLET. PO SCH (08:56)
[2021-05-21] MEDS: NICOTINE 14MG PATCH. TD SCH ×2 (08:57→09:00)
[2021-05-21] MEDS: IPRATROPIUM BROMIDE 0.06% NASAL SPRAY 15ML BOTTLE NS SCH ×3 (08:57→21:00)
[2021-05-21 16:37] VITALS: BP 126/76
[2021-05-21] MEDS: ATORVASTATIN CALCIUM 10 MG TABLET. PO SCH (21:30)
--- NOTE | 2021-05-21 21:47 | PDOC ---
Exam Note: Daren Note: Please also refer to the separate dictated note~for this date of service dictated separately.~Patient seen individually. Discussed the patient with Nursing staff reviewed the chart.~Reviewed interim history and current functioning. Reviewed vital signs,~Labs/ Radiology~and current medications noted below. Continue current treatment with the changes noted in the dictated addendum note Assessment: Vital Signs/I&O: Vital Signs Date Time Temp Pulse Resp B/P (MAP) Pulse Ox O2 Delivery O2 Flow Rate FiO2 05/21/21 16:37 98.2 76 18 126/76 (93) 99 Room Air I & O 05/20/21 05/20/21 05/21/21 15:00 23:00 07:00 Intake Total 600 ml 340 ml Balance 600 ml 340 ml Current Medications: Meds: Current Medications Medications (Trade) Dose Ordered Sig/Daisy Route PRN Reason Start Time Stop Time Status Last Admin Dose Admin Acetaminophen (Tylenol) 650 mg PRN Q6HRS PRN PO MILD PAIN / TEMP > 100.3'F 05/11/21 16:15 Multi-Ingredient Ointment (Analgesic [place]) 1 eva PRN QID PRN TP MUSCLE PAIN 05/11/21 16:15 Al Hydroxide/Mg Hydroxide (Mylanta Plus Xs) 15 ml PRN AFTMEALHC PRN PO DYSPEPSIA 05/11/21 16:15 Magnesium Hydroxide (Milk Of Magnesia) 2,400 mg PRN QHS PRN PO CONSTIPATION 05/11/21 16:15 Nicotine (Nicoderm Cq 14mg Patch) 1 patch DAILY TD 05/12/21 09:00 05/20/21 08:46 Ascorbic Acid (Vitamin C) 500 mg DAILY PO 05/12/21 09:00 05/21/21 08:55 Aspirin (Aspirin Chewable) 81 mg DAILY PO 05/12/21 09:00 05/21/21 08:56 Nicotine (Nicoderm Cq 14mg Patch) 1 patch DAILY TD 05/12/21 09:00 UNV Potassium Chloride (Klor-Con) 40 meq DAILY PO 05/12/21 09:00 05/21/21 08:56 Sennosides (Senna) 8.6 mg DAILY PO 05/12/21 09:00 05/21/21 08:56 Sertraline HCl (Zoloft) 125 mg DAILY PO 05/12/21 09:00 2/3/22 18:20 DC 05/18/21 08:59 Vitamin D (Vitamin D3) 1,000 unit DAILY PO 05/12/21 09:00 05/21/21 08:56 Cyanocobalamin (Vitamin B-12) 1,000 mcg [id number] PO 05/12/21 09:00 05/12/21 08:19 Polyethylene Glycol (miraLAX) 17 gm DAILY PO 05/12/21 09:00 05/21/21 08:56 Atorvastatin Calcium (Lipitor) 10 mg QHS PO 05/12/21 21:00 05/21/21 21:30 Quetiapine Fumarate (SEROquel) 25 mg PRN BID PRN PO AGITATION 05/12/21 07:15 05/19/21 19:14 DC 05/19/21 09:35 Divalproex Sodium (Depakote Sprinkles) 125 mg [id number] PO 05/12/21 09:00 05/12/21 16:01 DC 05/12/21 08:19 Ipratropium [place] (Atrovent Nasal) 1 spray BID NS 05/12/21 09:00 05/20/21 21:01 Divalproex Sodium (Depakote Sprinkles) 250 mg [id number] PO 05/12/21 16:00 05/16/21 18:09 DC 05/16/21 15:00 Cefdinir (Omnicef) 300 mg BID PO 05/14/21 21:00 05/20/21 22:00 DC 05/20/21 21:00 Lactobacillus Rhamnosus (Culturelle) 1 cap BID PO 05/14/21 21:00 05/21/21 21:30 Carbidopa/Levodopa (Sinemet 25/100) 1 tab TID PO 05/15/21 21:00 05/21/21 21:30 Divalproex Sodium (Depakote Sprinkles) 375 mg [id number] PO 05/17/21 09:00 05/21/21 16:30 Sertraline HCl (Zoloft) 150 mg DAILY PO 05/19/21 09:00 05/21/21 08:55 Quetiapine Fumarate (SEROquel) 25 mg 0900,1700 PO 05/20/21 09:00 05/21/21 16:30 Olanzapine (ZyPREXA ZYDIS) 2.5 mg PRN Q2HR PRN PO PSYCHOSIS 05/20/21 10:00 I have reviewed the current psychotropics carefully including drug interactions. Risk benefit ratio favors no change other than as noted in my dictated progress note. Diagnosis: Problems: (1) Impulse control disorder, unspecified (2) Anxiety disorder, unspecified (3) Dementia, vascular, with depression (4) Dementia, vascular, with delusions (5) Dementia in Alzheimer's disease with depression (6) Dementia in Alzheimer's disease with delusions (7) Dementia of the Alzheimer's type with early onset with behavioral disturbance (8) Major neurocognitive disorder (9) Mild cognitive impairment (10) Major depressive disorder, recurrent episode MICHAEL MCKEON MD May 21, 2021 21:47
[2021-05-22 05:44] VITALS: BP 109/67
--- NOTE | 2021-05-22 07:13 | PDOC ---
Exam Note: Daren Note: This note is a late entry for 05/20/2021 covers elements not covered in my initial note. Subjective: The patient was seen individually on 05/20/2021, discussed and reviewed the chart with Shaquille MATIAS. The patient slept 7-1/4 hours previous night. He had a very difficult morning. I was called by nursing staff in the morning because of his marked agitation and mood lability, refusing showers and a bath. I had ordered Zyprexa p.r.n. after the emergency call but gradually the patient appeared to settle down even without the Zyprexa. I met with him in his room. He has been wandering into other patients rooms, sitting on their beds, labile at times. Review of Systems: Ambulation impaired, in wheelchair. No CV, , pulmonary, eye, ENT system symptoms on review. Mental Status Exam: The patient is oriented to himself and situation. Speech has some latency, coherent. Abstraction fair. Computation impaired. Language function intact. Mood and affect remains somewhat withdrawn. Laboratory Data: Reviewed. Impression: Major depressive disorder, recurrent. Mild cognitive impairment versus major neurocognitive disorder, Alzheimer, vascular with delusion, depression, behavioral disturbance. Anxiety disorder unspecified. Impulse control disorder unspecified. Plan: Continue rest of the psychotropics unchanged. Adjust further as clinically indicated. Assessment: Vital Signs/I&O: Vital Signs Date Time Temp Pulse Resp B/P (MAP) Pulse Ox O2 Delivery O2 Flow Rate FiO2 05/22/21 05:44 97.6 93 20 109/67 (81) 99 Room Air I & O 05/21/21 05/21/21 05/22/21 15:00 23:00 07:00 Intake Total 440 ml 0 ml Balance 440 ml 0 ml Current Medications: I have reviewed the current psychotropics carefully including drug interactions. Risk benefit ratio favors no change other than as noted in my dictated progress note. Diagnosis: Problems: (1) Major depressive disorder, recurrent episode (2) Impulse control disorder, unspecified (3) Anxiety disorder, unspecified (4) Dementia, vascular, with depression (5) Dementia, vascular, with delusions (6) Dementia in Alzheimer's disease with depression (7) Dementia in Alzheimer's disease with delusions (8) Dementia of the Alzheimer's type with early onset with behavioral disturbance (9) Major neurocognitive disorder (10) Mild cognitive impairment MICHAEL MCKEON MD May 22, 2021 07:13
--- NOTE | 2021-05-22 07:46 | PDOC ---
Exam Note: Daren Note: This note is a late entry for 05/21/2021 covers elements not covered in my initial note. Subjective: The patient was seen individually on 05/21/2021, discussed and reviewed the chart with Eliot MATIAS. The patient slept 7 hours previous night. He was combative yesterday but not today. I met with him in his room. Review of Systems: Ambulation impaired, in wheelchair. No CV, , pulmonary, eye, ENT system symptoms on review. Reliability poor. He was complaining of feeling cold and staff will provide extra covers. Mental Status Exam: The patient is awake, alert, oriented. Speech has some latency, coherent. Abstraction fair. Computation impaired. Language function intact. Attention span short. Mood and affect still somewhat depressed, withdrawn, anxious, but less labile. Laboratory Data: Reviewed. Impression: Major depressive disorder recurrent. Mild cognitive impairment versus major neurocognitive disorder, Alzheimer, vascular with delusion, depression, behavioral disturbance. Anxiety disorder unspecified. Impulse control disorder unspecified. Plan: No change from initial note. Assessment: Vital Signs/I&O: Vital Signs Date Time Temp Pulse Resp B/P (MAP) Pulse Ox O2 Delivery O2 Flow Rate FiO2 05/22/21 05:44 97.6 93 20 109/67 (81) 99 Room Air I & O 05/21/21 05/21/21 05/22/21 15:00 23:00 07:00 Intake Total 440 ml 0 ml Balance 440 ml 0 ml Current Medications: I have reviewed the current psychotropics carefully including drug interactions. Risk benefit ratio favors no change other than as noted in my dictated progress note. Diagnosis: Problems: (1) Impulse control disorder, unspecified (2) Anxiety disorder, unspecified (3) Dementia, vascular, with depression (4) Dementia, vascular, with delusions (5) Dementia in Alzheimer's disease with depression (6) Dementia in Alzheimer's disease with delusions (7) Dementia of the Alzheimer's type with early onset with behavioral disturbance (8) Major neurocognitive disorder (9) Major depressive disorder, recurrent episode (10) Mild cognitive impairment MICHAEL MCKEON MD May 22, 2021 07:46
[2021-05-22] MEDS: SERTRALINE 50 MG TABLET. PO SCH (08:04)
[2021-05-22] MEDS: QUEtiapine 25 MG TABLET. PO SCH ×2 (08:04→16:57)
[2021-05-22] MEDS: SENNOSIDES 8.6 MG TABLET PO SCH (08:05)
[2021-05-22] MEDS: ASCORBIC ACID 500 MG TABLET PO SCH (08:05)
[2021-05-22] MEDS: ASPIRIN CHEWABLE 81 MG TABLET. PO SCH (08:05)
[2021-05-22] MEDS: CHOLECALCIFEROL (VITAMIN D3) 1,000 UNIT TABLET PO SCH (08:05)
[2021-05-22] MEDS: LACTOBACILLUS RHAMNOSUS GG 1 CAPSULE. PO SCH ×2 (08:05→20:24)
[2021-05-22] MEDS: POTASSIUM CHLORIDE 20 MEQ TABLET.ER. PO SCH (08:05)
[2021-05-22] MEDS: CARBIDOPA/LEVODOPA 25/100MG TABLET PO SCH ×3 (08:05→20:24)
[2021-05-22] MEDS: IPRATROPIUM BROMIDE 0.06% NASAL SPRAY 15ML BOTTLE NS SCH ×2 (08:06→20:24)
[2021-05-22] MEDS: DIVALPROEX 125 MG CAP.SPRINK PO SCH ×2 (08:06→16:57)
[2021-05-22] MEDS: POLYETHYLENE GLYCOL 3350 17 GM PACKET. PO SCH (08:06)
[2021-05-22] MEDS: NICOTINE 14MG PATCH. TD SCH (08:07)
[2021-05-22] MEDS: ATORVASTATIN CALCIUM 10 MG TABLET. PO SCH (20:24)
--- NOTE | 2021-05-22 21:21 | PDOC ---
Exam Note: Daren Note: Please also refer to the separate dictated note~for this date of service dictated separately.~Patient seen individually. Discussed the patient with Nursing staff reviewed the chart.~Reviewed interim history and current functioning. Reviewed vital signs,~Labs/ Radiology~and current medications noted below. Continue current treatment with the changes noted in the dictated addendum note Assessment: Vital Signs/I&O: Vital Signs Date Time Temp Pulse Resp B/P (MAP) Pulse Ox O2 Delivery O2 Flow Rate FiO2 05/22/21 05:44 97.6 93 20 109/67 (81) 99 Room Air I & O 05/21/21 05/21/21 05/22/21 15:00 23:00 07:00 Intake Total 440 ml 0 ml Balance 440 ml 0 ml Current Medications: Meds: Current Medications Medications (Trade) Dose Ordered Sig/Daisy Route PRN Reason Start Time Stop Time Status Last Admin Dose Admin Acetaminophen (Tylenol) 650 mg PRN Q6HRS PRN PO MILD PAIN / TEMP > 100.3'F 05/11/21 16:15 Multi-Ingredient Ointment (Analgesic [place]) 1 eva PRN QID PRN TP MUSCLE PAIN 05/11/21 16:15 Al Hydroxide/Mg Hydroxide (Mylanta Plus Xs) 15 ml PRN AFTMEALHC PRN PO DYSPEPSIA 05/11/21 16:15 Magnesium Hydroxide (Milk Of Magnesia) 2,400 mg PRN QHS PRN PO CONSTIPATION 05/11/21 16:15 Nicotine (Nicoderm Cq 14mg Patch) 1 patch DAILY TD 05/12/21 09:00 05/22/21 08:07 Ascorbic Acid (Vitamin C) 500 mg DAILY PO 05/12/21 09:00 05/22/21 08:05 Aspirin (Aspirin Chewable) 81 mg DAILY PO 05/12/21 09:00 05/22/21 08:05 Nicotine (Nicoderm Cq 14mg Patch) 1 patch DAILY TD 05/12/21 09:00 UNV Potassium Chloride (Klor-Con) 40 meq DAILY PO 05/12/21 09:00 05/22/21 08:05 Sennosides (Senna) 8.6 mg DAILY PO 05/12/21 09:00 05/22/21 08:05 Sertraline HCl (Zoloft) 125 mg DAILY PO 05/12/21 09:00 2/3/22 18:20 DC 05/18/21 08:59 Vitamin D (Vitamin D3) 1,000 unit DAILY PO 05/12/21 09:00 05/22/21 08:05 Cyanocobalamin (Vitamin B-12) 1,000 mcg [id number] PO 05/12/21 09:00 05/12/21 08:19 Polyethylene Glycol (miraLAX) 17 gm DAILY PO 05/12/21 09:00 05/22/21 08:06 Atorvastatin Calcium (Lipitor) 10 mg QHS PO 05/12/21 21:00 05/22/21 20:24 Quetiapine Fumarate (SEROquel) 25 mg PRN BID PRN PO AGITATION 05/12/21 07:15 05/19/21 19:14 DC 05/19/21 09:35 Divalproex Sodium (Depakote Sprinkles) 125 mg [id number] PO 05/12/21 09:00 05/12/21 16:01 DC 05/12/21 08:19 Ipratropium [place] (Atrovent Nasal) 1 spray BID NS 05/12/21 09:00 05/22/21 20:24 Divalproex Sodium (Depakote Sprinkles) 250 mg [id number] PO 05/12/21 16:00 05/16/21 18:09 DC 05/16/21 15:00 Cefdinir (Omnicef) 300 mg BID PO 05/14/21 21:00 05/20/21 22:00 DC 05/20/21 21:00 Lactobacillus Rhamnosus (Culturelle) 1 cap BID PO 05/14/21 21:00 05/22/21 20:24 Carbidopa/Levodopa (Sinemet 25/100) 1 tab TID PO 05/15/21 21:00 05/22/21 20:24 Divalproex Sodium (Depakote Sprinkles) 375 mg [id number] PO 05/17/21 09:00 05/22/21 16:57 Sertraline HCl (Zoloft) 150 mg DAILY PO 05/19/21 09:00 05/22/21 08:04 Quetiapine Fumarate (SEROquel) 25 mg 0900,1700 PO 05/20/21 09:00 05/22/21 16:57 Olanzapine (ZyPREXA ZYDIS) 2.5 mg PRN Q2HR PRN PO PSYCHOSIS 05/20/21 10:00 05/22/21 18:08 I have reviewed the current psychotropics carefully including drug interactions. Risk benefit ratio favors no change other than as noted in my dictated progress note. Diagnosis: Problems: (1) Impulse control disorder, unspecified (2) Major depressive disorder, severe (3) Anxiety disorder, unspecified (4) Dementia, vascular, with depression (5) Dementia, vascular, with delusions (6) Dementia in Alzheimer's disease with depression (7) Dementia in Alzheimer's disease with delusions (8) Dementia of the Alzheimer's type with early onset with behavioral disturbance (9) Major neurocognitive disorder (10) Major depressive disorder, recurrent episode (11) Mild cognitive impairment MICHAEL MCKEON MD May 22, 2021 21:21
[2021-05-22 23:46] VITALS: BP 101/62
[2021-05-23 06:10] VITALS: BP 134/72
[2021-05-23] MEDS: NICOTINE 14MG PATCH. TD SCH (08:03)
[2021-05-23] MEDS: CARBIDOPA/LEVODOPA 25/100MG TABLET PO SCH ×3 (08:04→19:47)
[2021-05-23] MEDS: QUEtiapine 25 MG TABLET. PO SCH ×2 (08:04→17:00)
[2021-05-23] MEDS: ASCORBIC ACID 500 MG TABLET PO SCH (08:04)
[2021-05-23] MEDS: SENNOSIDES 8.6 MG TABLET PO SCH (08:04)
[2021-05-23] MEDS: LACTOBACILLUS RHAMNOSUS GG 1 CAPSULE. PO SCH ×2 (08:04→19:48)
[2021-05-23] MEDS: CHOLECALCIFEROL (VITAMIN D3) 1,000 UNIT TABLET PO SCH (08:04)
[2021-05-23] MEDS: ASPIRIN CHEWABLE 81 MG TABLET. PO SCH (08:04)
[2021-05-23] MEDS: IPRATROPIUM BROMIDE 0.06% NASAL SPRAY 15ML BOTTLE NS SCH ×2 (08:05→19:48)
[2021-05-23] MEDS: SERTRALINE 50 MG TABLET. PO SCH (08:05)
[2021-05-23] MEDS: DIVALPROEX 125 MG CAP.SPRINK PO SCH ×2 (08:05→17:19)
[2021-05-23] MEDS: POTASSIUM CHLORIDE 20 MEQ TABLET.ER. PO SCH (08:05)
[2021-05-23] MEDS: POLYETHYLENE GLYCOL 3350 17 GM PACKET. PO SCH (08:06)
[2021-05-23 16:10] VITALS: BP 103/64
[2021-05-23] MEDS: ATORVASTATIN CALCIUM 10 MG TABLET. PO SCH (19:47)
--- NOTE | 2021-05-23 21:29 | PDOC ---
Exam Note: Daren Note: Please also refer to the separate dictated note~for this date of service dictated separately.~Patient seen individually. Discussed the patient with Nursing staff reviewed the chart.~Reviewed interim history and current functioning. Reviewed vital signs,~Labs/ Radiology~and current medications noted below. Continue current treatment with the changes noted in the dictated addendum note Assessment: Vital Signs/I&O: Vital Signs Date Time Temp Pulse Resp B/P (MAP) Pulse Ox O2 Delivery O2 Flow Rate FiO2 05/23/21 16:10 97.9 83 16 103/64 (77) 99 05/22/21 05:44 Room Air I & O 05/22/21 05/22/21 05/23/21 15:00 23:00 07:00 Intake Total 600 ml 200 ml Balance 600 ml 200 ml Labs: Laboratory Tests Test 05/23/21 06:00 SARS-CoV-2 (PCR) Not detected (NOT DETECTD) Current Medications: Meds: Laboratory Tests Test 05/23/21 06:00 Coronavirus (COVID-19)(PCR) Not detected Current Medications Medications (Trade) Dose Ordered Sig/Daisy Route PRN Reason Start Time Stop Time Status Last Admin Dose Admin Acetaminophen (Tylenol) 650 mg PRN Q6HRS PRN PO MILD PAIN / TEMP > 100.3'F 05/11/21 16:15 Multi-Ingredient Ointment (Analgesic [place]) 1 eva PRN QID PRN TP MUSCLE PAIN 05/11/21 16:15 Al Hydroxide/Mg Hydroxide (Mylanta Plus Xs) 15 ml PRN AFTMEALHC PRN PO DYSPEPSIA 05/11/21 16:15 Magnesium Hydroxide (Milk Of Magnesia) 2,400 mg PRN QHS PRN PO CONSTIPATION 05/11/21 16:15 Nicotine (Nicoderm Cq 14mg Patch) 1 patch DAILY TD 05/12/21 09:00 05/23/21 08:03 Ascorbic Acid (Vitamin C) 500 mg DAILY PO 05/12/21 09:00 05/23/21 08:04 Aspirin (Aspirin Chewable) 81 mg DAILY PO 05/12/21 09:00 05/23/21 08:04 Nicotine (Nicoderm Cq 14mg Patch) 1 patch DAILY TD 05/12/21 09:00 UNV Potassium Chloride (Klor-Con) 40 meq DAILY PO 05/12/21 09:00 05/23/21 08:05 Sennosides (Senna) 8.6 mg DAILY PO 05/12/21 09:00 05/23/21 08:04 Sertraline HCl (Zoloft) 125 mg DAILY PO 05/12/21 09:00 05/18/21 18:20 DC 05/18/21 08:59 Vitamin D (Vitamin D3) 1,000 unit DAILY PO 05/12/21 09:00 05/23/21 08:04 Cyanocobalamin (Vitamin B-12) 1,000 mcg [id number] PO 05/12/21 09:00 05/12/21 08:19 Polyethylene Glycol (miraLAX) 17 gm DAILY PO 05/12/21 09:00 05/23/21 08:06 Atorvastatin Calcium (Lipitor) 10 mg QHS PO 05/12/21 21:00 05/23/21 19:47 Quetiapine Fumarate (SEROquel) 25 mg PRN BID PRN PO AGITATION 05/12/21 07:15 05/19/21 19:14 DC 05/19/21 09:35 Divalproex Sodium (Depakote Sprinkles) 125 mg [id number] PO 05/12/21 09:00 05/12/21 16:01 DC 05/12/21 08:19 Ipratropium [place] (Atrovent Nasal) 1 spray BID NS 05/12/21 09:00 05/23/21 19:48 Divalproex Sodium (Depakote Sprinkles) 250 mg [id number] PO 05/12/21 16:00 05/16/21 18:09 DC 05/16/21 15:00 Cefdinir (Omnicef) 300 mg BID PO 05/14/21 21:00 05/20/21 22:00 DC 05/20/21 21:00 Lactobacillus Rhamnosus (Culturelle) 1 cap BID PO 05/14/21 21:00 05/23/21 19:48 Carbidopa/Levodopa (Sinemet 25/100) 1 tab TID PO 05/15/21 21:00 05/23/21 19:47 Divalproex Sodium (Depakote Sprinkles) 375 mg [id number] PO 05/17/21 09:00 05/23/21 17:19 Sertraline HCl (Zoloft) 150 mg DAILY PO 05/19/21 09:00 05/23/21 08:05 Quetiapine Fumarate (SEROquel) 25 mg 0900,1700 PO 05/20/21 09:00 05/23/21 18:17 DC 05/23/21 17:00 Olanzapine (ZyPREXA ZYDIS) 2.5 mg PRN Q2HR PRN PO PSYCHOSIS 05/20/21 10:00 05/23/21 18:08 Quetiapine Fumarate (SEROquel) 25 mg 0900,1300,1700 PO 05/24/21 09:00 I have reviewed the current psychotropics carefully including drug interactions. Risk benefit ratio favors no change other than as noted in my dictated progress note. Diagnosis: Problems: (1) Impulse control disorder, unspecified (2) Anxiety disorder, unspecified (3) Dementia, vascular, with depression (4) Dementia, vascular, with delusions (5) Dementia in Alzheimer's disease with depression (6) Dementia in Alzheimer's disease with delusions (7) Dementia of the Alzheimer's type with early onset with behavioral disturbance (8) Major neurocognitive disorder (9) Major depressive disorder, recurrent episode (10) Mild cognitive impairment MICHAEL MCKEON MD May 23, 2021 21:29
[2021-05-24 06:18] VITALS: BP 128/73
--- NOTE | 2021-05-24 07:39 | PDOC ---
Exam Note: Daren Note: This note is a late entry for 05/22/2021 covers elements not covered in my initial note. Subjective: The patient was seen individually on 05/22/2021, discussed and reviewed the chart with Abby MATIAS. The patient slept 7-1/4 hours previous night. He has been yelling at times, especially when staff tries to assist him. Review of Systems: Ambulation impaired, in wheelchair. No CV, , pulmonary, eye, ENT system symptoms on review. Mental Status Exam: The patient is alert, oriented. Speech coherent. Abstraction fair. Computation impaired. Language function intact. Attention span short. Mood and affect withdrawn, anxious. Laboratory Data: Reviewed. Impression: Major depressive disorder recurrent. Mild cognitive impairment versus major neurocognitive disorder, Alzheimer, vascular with delusion, depression, behavioral disturbance. Anxiety disorder unspecified. Impulse control disorder unspecified. Plan: No change from initial note. Assessment: Vital Signs/I&O: Vital Signs Date Time Temp Pulse Resp B/P (MAP) Pulse Ox O2 Delivery O2 Flow Rate FiO2 05/24/21 06:18 97.7 70 18 128/73 (91) 97 05/22/21 05:44 Room Air I & O 05/23/21 05/23/21 05/24/21 15:00 23:00 07:00 Intake Total 600 ml 420 ml Balance 600 ml 420 ml Current Medications: I have reviewed the current psychotropics carefully including drug interactions. Risk benefit ratio favors no change other than as noted in my dictated progress note. Diagnosis: Problems: (1) Impulse control disorder, unspecified (2) Anxiety disorder, unspecified (3) Dementia, vascular, with depression (4) Dementia, vascular, with delusions (5) Dementia in Alzheimer's disease with depression (6) Dementia in Alzheimer's disease with delusions (7) Dementia of the Alzheimer's type with early onset with behavioral disturbance (8) Major neurocognitive disorder (9) Major depressive disorder, recurrent episode (10) Mild cognitive impairment MICHAEL MCKEON MD May 24, 2021 07:39
--- NOTE | 2021-05-24 07:55 | PDOC ---
Exam Note: Daren Note: This note is a late entry for 05/23/2021 covers elements not covered in my initial note. Subjective: The patient was seen individually on 05/23/2021, discussed and reviewed the chart with Daniella MATIAS. The patient slept 6-1/4 hours previous night. Covid screen today is negative. He has been angry, resistive to cares, especially when taking him to the bathroom, fighting with staff. Review of Systems: Ambulation impaired, in wheelchair. No CV, , pulmonary, eye, ENT system symptoms on review. He was in the hallway where I met with him almost out of his wheelchair. Staff intervened to prevent a fall. Mental Status Exam: The patient is oriented to himself and situation. Speech has some latency, coherent. Abstraction fair. Computation impaired. Language function intact. Attention span short. Mood and affect remains anxious, labile. Laboratory Data: Reviewed. Impression: Major depressive disorder recurrent. Mild cognitive impairment versus major neurocognitive disorder, Alzheimer, vascular with delusion, depression, behavioral disturbance. Anxiety disorder unspecified. Impulse control disorder unspecified. Plan: No change from initial note. Valproic acid level on 05/20 was 51 therapeutic. Maintain Depakote unchanged. Start Seroquel 25 mg 9 a.m., 1 p.m. 5 p.m. Rest unchanged for now. Assessment: Vital Signs/I&O: Vital Signs Date Time Temp Pulse Resp B/P (MAP) Pulse Ox O2 Delivery O2 Flow Rate FiO2 05/24/21 06:18 97.7 70 18 128/73 (91) 97 05/22/21 05:44 Room Air I & O 05/23/21 05/23/21 05/24/21 14:59 22:59 06:59 Intake Total 600 ml 420 ml Balance 600 ml 420 ml Current Medications: I have reviewed the current psychotropics carefully including drug interactions. Risk benefit ratio favors no change other than as noted in my dictated progress note. Diagnosis: Problems: (1) Impulse control disorder, unspecified (2) Anxiety disorder, unspecified (3) Dementia, vascular, with depression (4) Dementia, vascular, with delusions (5) Dementia in Alzheimer's disease with depression (6) Dementia in Alzheimer's disease with delusions (7) Dementia of the Alzheimer's type with early onset with behavioral disturbance (8) Major neurocognitive disorder (9) Major depressive disorder, recurrent episode (10) Mild cognitive impairment MICHAEL MCKEON MD May 24, 2021 07:55
[2021-05-24] MEDS: POLYETHYLENE GLYCOL 3350 17 GM PACKET. PO SCH (08:06)
[2021-05-24] MEDS: CHOLECALCIFEROL (VITAMIN D3) 1,000 UNIT TABLET PO SCH (08:06)
[2021-05-24] MEDS: ASCORBIC ACID 500 MG TABLET PO SCH (08:06)
[2021-05-24] MEDS: DIVALPROEX 125 MG CAP.SPRINK PO SCH ×2 (08:06→17:05)
[2021-05-24] MEDS: NICOTINE 14MG PATCH. TD SCH (08:06)
[2021-05-24] MEDS: POTASSIUM CHLORIDE 20 MEQ TABLET.ER. PO SCH (08:07)
[2021-05-24] MEDS: LACTOBACILLUS RHAMNOSUS GG 1 CAPSULE. PO SCH ×2 (08:07→20:52)
[2021-05-24] MEDS: ASPIRIN CHEWABLE 81 MG TABLET. PO SCH (08:07)
[2021-05-24] MEDS: SENNOSIDES 8.6 MG TABLET PO SCH (08:07)
[2021-05-24] MEDS: QUEtiapine 25 MG TABLET. PO SCH ×3 (08:08→17:05)
[2021-05-24] MEDS: CARBIDOPA/LEVODOPA 25/100MG TABLET PO SCH ×3 (08:08→20:52)
[2021-05-24] MEDS: SERTRALINE 50 MG TABLET. PO SCH (08:08)
[2021-05-24] MEDS: IPRATROPIUM BROMIDE 0.06% NASAL SPRAY 15ML BOTTLE NS SCH ×2 (08:09→21:00)
[2021-05-24 15:46] VITALS: BP 107/65
[2021-05-24] MEDS: ATORVASTATIN CALCIUM 10 MG TABLET. PO SCH (20:52)
--- NOTE | 2021-05-24 21:27 | PDOC ---
Exam Note: Daren Note: Please also refer to the separate dictated note~for this date of service dictated separately.~Patient seen individually. Discussed the patient with Nursing staff reviewed the chart.~Reviewed interim history and current functioning. Reviewed vital signs,~Labs/ Radiology~and current medications noted below. Continue current treatment with the changes noted in the dictated addendum note Assessment: Vital Signs/I&O: Vital Signs Date Time Temp Pulse Resp B/P (MAP) Pulse Ox O2 Delivery O2 Flow Rate FiO2 05/24/21 15:46 99.2 82 19 107/65 (79) 98 Room Air I & O 05/23/21 05/23/21 05/24/21 14:59 22:59 06:59 Intake Total 600 ml 420 ml Balance 600 ml 420 ml Current Medications: Meds: Current Medications Medications (Trade) Dose Ordered Sig/Daisy Route PRN Reason Start Time Stop Time Status Last Admin Dose Admin Acetaminophen (Tylenol) 650 mg PRN Q6HRS PRN PO MILD PAIN / TEMP > 100.3'F 05/11/21 16:15 Multi-Ingredient Ointment (Analgesic [place]) 1 eva PRN QID PRN TP MUSCLE PAIN 05/11/21 16:15 Al Hydroxide/Mg Hydroxide (Mylanta Plus Xs) 15 ml PRN AFTMEALHC PRN PO DYSPEPSIA 05/11/21 16:15 Magnesium Hydroxide (Milk Of Magnesia) 2,400 mg PRN QHS PRN PO CONSTIPATION 05/11/21 16:15 Nicotine (Nicoderm Cq 14mg Patch) 1 patch DAILY TD 05/12/21 09:00 05/24/21 08:06 Ascorbic Acid (Vitamin C) 500 mg DAILY PO 05/12/21 09:00 05/24/21 08:06 Aspirin (Aspirin Chewable) 81 mg DAILY PO 05/12/21 09:00 05/24/21 08:07 Nicotine (Nicoderm Cq 14mg Patch) 1 patch DAILY TD 05/12/21 09:00 UNV Potassium Chloride (Klor-Con) 40 meq DAILY PO 05/12/21 09:00 05/24/21 08:07 Sennosides (Senna) 8.6 mg DAILY PO 05/12/21 09:00 05/24/21 08:07 Sertraline HCl (Zoloft) 125 mg DAILY PO 05/12/21 09:00 2/3/22 18:20 DC 05/18/21 08:59 Vitamin D (Vitamin D3) 1,000 unit DAILY PO 05/12/21 09:00 05/24/21 08:06 Cyanocobalamin (Vitamin B-12) 1,000 mcg [id number] PO 05/12/21 09:00 05/12/21 08:19 Polyethylene Glycol (miraLAX) 17 gm DAILY PO 05/12/21 09:00 05/24/21 08:06 Atorvastatin Calcium (Lipitor) 10 mg QHS PO 05/12/21 21:00 05/24/21 20:52 Quetiapine Fumarate (SEROquel) 25 mg PRN BID PRN PO AGITATION 05/12/21 07:15 05/19/21 19:14 DC 05/19/21 09:35 Divalproex Sodium (Depakote Sprinkles) 125 mg [id number] PO 05/12/21 09:00 05/12/21 16:01 DC 05/12/21 08:19 Ipratropium [place] (Atrovent Nasal) 1 spray BID NS 05/12/21 09:00 05/24/21 08:09 Divalproex Sodium (Depakote Sprinkles) 250 mg [id number] PO 05/12/21 16:00 05/16/21 18:09 DC 05/16/21 15:00 Cefdinir (Omnicef) 300 mg BID PO 05/14/21 21:00 05/20/21 22:00 DC 05/20/21 21:00 Lactobacillus Rhamnosus (Culturelle) 1 cap BID PO 05/14/21 21:00 05/24/21 20:52 Carbidopa/Levodopa (Sinemet 25/100) 1 tab TID PO 05/15/21 21:00 05/24/21 20:52 Divalproex Sodium (Depakote Sprinkles) 375 mg [id number] PO 05/17/21 09:00 05/24/21 17:05 Sertraline HCl (Zoloft) 150 mg DAILY PO 05/19/21 09:00 05/24/21 08:08 Quetiapine Fumarate (SEROquel) 25 mg 0900,1700 PO 05/20/21 09:00 05/23/21 18:17 DC 05/23/21 17:00 Olanzapine (ZyPREXA ZYDIS) 2.5 mg PRN Q2HR PRN PO PSYCHOSIS 05/20/21 10:00 05/23/21 18:08 Quetiapine Fumarate (SEROquel) 25 mg 0900,1300,1700 PO 05/24/21 09:00 05/24/21 17:05 Current Medications Medications (Trade) Dose Ordered Sig/Daisy Route PRN Reason Start Time Stop Time Status Last Admin Dose Admin Quetiapine Fumarate (SEROquel) 25 mg 0900,1300,1700 PO 05/24/21 09:00 05/24/21 17:05 I have reviewed the current psychotropics carefully including drug interactions. Risk benefit ratio favors no change other than as noted in my dictated progress note. Diagnosis: Problems: (1) Impulse control disorder, unspecified (2) Major depressive disorder, severe (3) Anxiety disorder, unspecified (4) Dementia, vascular, with depression (5) Dementia, vascular, with delusions (6) Dementia in Alzheimer's disease with depression (7) Dementia in Alzheimer's disease with delusions (8) Dementia of the Alzheimer's type with early onset with behavioral disturbance (9) Major neurocognitive disorder (10) Mild cognitive impairment MICHAEL MCKEON MD May 24, 2021 21:27
[2021-05-25 06:04] VITALS: BP 155/79
[2021-05-25] MEDS: SERTRALINE 50 MG TABLET. PO SCH (08:59)
[2021-05-25] MEDS: SENNOSIDES 8.6 MG TABLET PO SCH (08:59)
[2021-05-25] MEDS: CHOLECALCIFEROL (VITAMIN D3) 1,000 UNIT TABLET PO SCH (08:59)
[2021-05-25] MEDS: NICOTINE 14MG PATCH. TD SCH (08:59)
[2021-05-25] MEDS: LACTOBACILLUS RHAMNOSUS GG 1 CAPSULE. PO SCH ×2 (08:59→20:26)
[2021-05-25] MEDS: CARBIDOPA/LEVODOPA 25/100MG TABLET PO SCH ×3 (08:59→20:26)
[2021-05-25] MEDS: POLYETHYLENE GLYCOL 3350 17 GM PACKET. PO SCH (08:59)
[2021-05-25] MEDS: ASCORBIC ACID 500 MG TABLET PO SCH (09:00)
[2021-05-25] MEDS: QUEtiapine 25 MG TABLET. PO SCH ×4 (09:00→17:15)
[2021-05-25] MEDS: ASPIRIN CHEWABLE 81 MG TABLET. PO SCH (09:00)
[2021-05-25] MEDS: DIVALPROEX 125 MG CAP.SPRINK PO SCH ×2 (09:00→14:53)
[2021-05-25] MEDS: POTASSIUM CHLORIDE 20 MEQ TABLET.ER. PO SCH (09:00)
[2021-05-25] MEDS: IPRATROPIUM BROMIDE 0.06% NASAL SPRAY 15ML BOTTLE NS SCH ×2 (09:00→21:00)
[2021-05-25 15:44] VITALS: BP 116/70
[2021-05-25] MEDS: ATORVASTATIN CALCIUM 10 MG TABLET. PO SCH (20:26)
--- NOTE | 2021-05-25 21:51 | PDOC ---
Exam Note: Daren Note: Please also refer to the separate dictated note~for this date of service dictated separately.~Patient seen individually. Discussed the patient with Nursing staff reviewed the chart.~Reviewed interim history and current functioning. Reviewed vital signs,~Labs/ Radiology~and current medications noted below. Continue current treatment with the changes noted in the dictated addendum note Assessment: Vital Signs/I&O: Vital Signs Date Time Temp Pulse Resp B/P (MAP) Pulse Ox O2 Delivery O2 Flow Rate FiO2 05/25/21 15:44 97.9 77 20 116/70 (85) 98 05/24/21 15:46 Room Air I & O 05/24/21 05/24/21 05/25/21 15:00 23:00 07:00 Intake Total 720 ml 360 ml Balance 720 ml 360 ml Current Medications: Meds: Current Medications Medications (Trade) Dose Ordered Sig/Daisy Route PRN Reason Start Time Stop Time Status Last Admin Dose Admin Acetaminophen (Tylenol) 650 mg PRN Q6HRS PRN PO MILD PAIN / TEMP > 100.3'F 05/11/21 16:15 Multi-Ingredient Ointment (Analgesic [place]) 1 eva PRN QID PRN TP MUSCLE PAIN 05/11/21 16:15 Al Hydroxide/Mg Hydroxide (Mylanta Plus Xs) 15 ml PRN AFTMEALHC PRN PO DYSPEPSIA 05/11/21 16:15 Magnesium Hydroxide (Milk Of Magnesia) 2,400 mg PRN QHS PRN PO CONSTIPATION 05/11/21 16:15 Nicotine (Nicoderm Cq 14mg Patch) 1 patch DAILY TD 05/12/21 09:00 05/25/21 08:59 Ascorbic Acid (Vitamin C) 500 mg DAILY PO 05/12/21 09:00 05/25/21 09:00 Aspirin (Aspirin Chewable) 81 mg DAILY PO 05/12/21 09:00 05/25/21 09:00 Nicotine (Nicoderm Cq 14mg Patch) 1 patch DAILY TD 05/12/21 09:00 UNV Potassium Chloride (Klor-Con) 40 meq DAILY PO 05/12/21 09:00 05/25/21 09:00 Sennosides (Senna) 8.6 mg DAILY PO 05/12/21 09:00 05/25/21 08:59 Sertraline HCl (Zoloft) 125 mg DAILY PO 05/12/21 09:00 05/18/21 18:20 DC 05/18/21 08:59 Vitamin D (Vitamin D3) 1,000 unit DAILY PO 05/12/21 09:00 05/25/21 08:59 Cyanocobalamin (Vitamin B-12) 1,000 mcg [id number] PO 05/12/21 09:00 05/12/21 08:19 Polyethylene Glycol (miraLAX) 17 gm DAILY PO 05/12/21 09:00 05/25/21 08:59 Atorvastatin Calcium (Lipitor) 10 mg QHS PO 05/12/21 21:00 05/25/21 20:26 Quetiapine Fumarate (SEROquel) 25 mg PRN BID PRN PO AGITATION 05/12/21 07:15 05/19/21 19:14 DC 05/19/21 09:35 Divalproex Sodium (Depakote Sprinkles) 125 mg [id number] PO 05/12/21 09:00 05/12/21 16:01 DC 05/12/21 08:19 Ipratropium [place] (Atrovent Nasal) 1 spray BID NS 05/12/21 09:00 05/24/21 08:09 Divalproex Sodium (Depakote Sprinkles) 250 mg [id number] PO 05/12/21 16:00 05/16/21 18:09 DC 05/16/21 15:00 Cefdinir (Omnicef) 300 mg BID PO 05/14/21 21:00 05/20/21 22:00 DC 05/20/21 21:00 Lactobacillus Rhamnosus (Culturelle) 1 cap BID PO 05/14/21 21:00 05/25/21 20:26 Carbidopa/Levodopa (Sinemet 25/100) 1 tab TID PO 05/15/21 21:00 05/25/21 20:26 Divalproex Sodium (Depakote Sprinkles) 375 mg [id number] PO 05/17/21 09:00 05/25/21 14:53 Sertraline HCl (Zoloft) 150 mg DAILY PO 05/19/21 09:00 05/25/21 08:59 Quetiapine Fumarate (SEROquel) 25 mg 0900,1700 PO 05/20/21 09:00 05/23/21 18:17 DC 05/23/21 17:00 Olanzapine (ZyPREXA ZYDIS) 2.5 mg PRN Q2HR PRN PO PSYCHOSIS 05/20/21 10:00 05/23/21 18:08 Quetiapine Fumarate (SEROquel) 25 mg 0900,1300,1700 PO 05/24/21 09:00 05/25/21 11:57 DC 05/25/21 09:00 Quetiapine Fumarate (SEROquel) 25 mg 0900,1200,1500,1800 PO 05/25/21 12:00 05/25/21 17:15 Current Medications Medications (Trade) Dose Ordered Sig/Daisy Route PRN Reason Start Time Stop Time Status Last Admin Dose Admin Quetiapine Fumarate (SEROquel) 25 mg 0900,1200,1500,1800 PO 05/25/21 12:00 05/25/21 17:15 I have reviewed the current psychotropics carefully including drug interactions. Risk benefit ratio favors no change other than as noted in my dictated progress note. Diagnosis: Problems: (1) Impulse control disorder, unspecified (2) Major depressive disorder, severe (3) Anxiety disorder, unspecified (4) Dementia, vascular, with depression (5) Dementia, vascular, with delusions (6) Dementia in Alzheimer's disease with depression (7) Dementia in Alzheimer's disease with delusions (8) Dementia of the Alzheimer's type with early onset with behavioral disturbance (9) Major neurocognitive disorder (10) Mild cognitive impairment MICHAEL MCKEON MD May 25, 2021 21:51
[2021-05-26 05:54] VITALS: BP 135/70
[2021-05-26 06:37] LABS: BASO % 0 % (0-3); EOS % 0 % (0-3); HEMATOCRIT 39.2 % (39.0-53.0); HEMOGLOBIN 12.9 g/dL (13.0-17.5); LYMPH % 15 % (24-48); MEAN CORPUSCULAR HEMOGLOBIN 32 pg (25-35); MEAN CORPUSCULAR HGB CONC 33 g/dL (31-37); MEAN CORPUSCULAR VOLUME 97 fL (79-100); MONO # 0.5 x10^3/uL (0.0-1.1); MONO % 8 % (0-9); NEUT % 77 % (31-73); PLATELET COUNT 130 x10^3/uL (140-400); RED BLOOD COUNT 4.06 x10^6/uL (4.30-5.70); RED CELL DISTRIBUTION WIDTH 14.6 % (11.5-14.5); WHITE BLOOD COUNT 6.5 x10^3/uL (4.0-11.0)
[2021-05-26 06:55] LABS: ALBUMIN 3.2 g/dL (3.4-5.0); ALK PHOS 77 U/L (46-116); ALT (SGPT) 18 U/L (16-63); ANION GAP 9 (6-14); AST (SGOT) 13 U/L (15-37); BLOOD UREA NITROGEN 19 mg/dL (8-26); BUN/CREATININE RATIO 24 (6-20); CALCIUM 8.3 mg/dL (8.5-10.1); CARBON DIOXIDE 30 mmol/L (21-32); CHLORIDE 108 mmol/L (98-107); CREATININE 0.8 mg/dL (0.7-1.3); GFR 94.8; GLUCOSE 72 mg/dL (70-99); POTASSIUM 3.9 mmol/L (3.5-5.1); SODIUM 147 mmol/L (136-145); TOTAL BILIRUBIN 0.3 mg/dL (0.2-1.0); TOTAL PROTEIN 6.4 g/dL (6.4-8.2)
[2021-05-26 07:00] LABS: VAL ACID 51 mcg/mL (50-100)
[2021-05-26] MEDS: POLYETHYLENE GLYCOL 3350 17 GM PACKET. PO SCH (08:05)
[2021-05-26] MEDS: NICOTINE 14MG PATCH. TD SCH (08:06)
[2021-05-26] MEDS: CARBIDOPA/LEVODOPA 25/100MG TABLET PO SCH ×3 (08:07→20:31)
[2021-05-26] MEDS: QUEtiapine 25 MG TABLET. PO SCH ×4 (08:07→17:18)
[2021-05-26] MEDS: ASPIRIN CHEWABLE 81 MG TABLET. PO SCH (08:07)
[2021-05-26] MEDS: LACTOBACILLUS RHAMNOSUS GG 1 CAPSULE. PO SCH ×2 (08:07→20:31)
[2021-05-26] MEDS: SENNOSIDES 8.6 MG TABLET PO SCH (08:07)
[2021-05-26] MEDS: POTASSIUM CHLORIDE 20 MEQ TABLET.ER. PO SCH (08:07)
[2021-05-26] MEDS: DIVALPROEX 125 MG CAP.SPRINK PO SCH ×2 (08:07→17:18)
[2021-05-26] MEDS: ASCORBIC ACID 500 MG TABLET PO SCH (08:07)
[2021-05-26] MEDS: CHOLECALCIFEROL (VITAMIN D3) 1,000 UNIT TABLET PO SCH (08:07)
[2021-05-26] MEDS: SERTRALINE 50 MG TABLET. PO SCH (08:08)
[2021-05-26] MEDS: IPRATROPIUM BROMIDE 0.06% NASAL SPRAY 15ML BOTTLE NS SCH ×2 (08:18→20:31)
[2021-05-26 16:05] VITALS: BP 103/65
[2021-05-26] MEDS: ATORVASTATIN CALCIUM 10 MG TABLET. PO SCH (20:31)
--- NOTE | 2021-05-26 20:55 | PDOC ---
Exam Note: Daren Note: Please also refer to the separate dictated note~for this date of service dictated separately.~Patient seen individually. Discussed the patient with Nursing staff reviewed the chart.~Reviewed interim history and current functioning. Reviewed vital signs,~Labs/ Radiology~and current medications noted below. Continue current treatment with the changes noted in the dictated addendum note Assessment: Vital Signs/I&O: Vital Signs Date Time Temp Pulse Resp B/P (MAP) Pulse Ox O2 Delivery O2 Flow Rate FiO2 05/26/21 16:05 98.7 79 18 103/65 (78) 98 Room Air I & O 05/25/21 05/25/21 05/26/21 15:00 23:00 07:00 Intake Total 660 ml 240 ml Balance 660 ml 240 ml Labs: Laboratory Tests Test 05/26/21 06:00 05/26/21 06:30 SARS-CoV-2 (PCR) Not detected (NOT DETECTD) White Blood Count 6.5 x10^3/uL (4.0-11.0) Red Blood Count 4.06 x10^6/uL (4.30-5.70) L Hemoglobin 12.9 g/dL (13.0-17.5) L Hematocrit 39.2 % (39.0-53.0) Mean Corpuscular Volume 97 fL (79-100) Mean Corpuscular Hemoglobin 32 pg (25-35) Mean Corpuscular Hemoglobin Concent 33 g/dL (31-37) Red Cell Distribution Width 14.6 % (11.5-14.5) H Platelet Count 130 x10^3/uL (140-400) L Neutrophils (%) (Auto) 77 % (31-73) H Lymphocytes (%) (Auto) 15 % (24-48) L Monocytes (%) (Auto) 8 % (0-9) Eosinophils (%) (Auto) 0 % (0-3) Basophils (%) (Auto) 0 % (0-3) Neutrophils # (Auto) 5.0 x10^3uL (1.8-7.7) Lymphocytes # (Auto) 1.0 x10^3/uL (1.0-4.8) Monocytes # (Auto) 0.5 x10^3/uL (0.0-1.1) Eosinophils # (Auto) 0.0 x10^3/uL (0.0-0.7) Basophils # (Auto) 0.0 x10^3/uL (0.0-0.2) Sodium Level 147 mmol/L (136-145) H Potassium Level 3.9 mmol/L (3.5-5.1) Chloride Level 108 mmol/L (98-107) H Carbon Dioxide Level 30 mmol/L (21-32) Anion Gap 9 (6-14) Blood Urea Nitrogen 19 mg/dL (8-26) Creatinine 0.8 mg/dL (0.7-1.3) Estimated GFR (Cockcroft-Gault) 94.8 BUN/Creatinine Ratio 24 (6-20) H Glucose Level 72 mg/dL (70-99) Calcium Level 8.3 mg/dL (8.5-10.1) L Total Bilirubin 0.3 mg/dL (0.2-1.0) Aspartate Amino Transferase (AST) 13 U/L (15-37) L Alanine Aminotransferase (ALT) 18 U/L (16-63) Alkaline Phosphatase 77 U/L (46-116) Total Protein 6.4 g/dL (6.4-8.2) Albumin 3.2 g/dL (3.4-5.0) L Albumin/Globulin Ratio 1.0 (1.0-1.7) Valproic Acid Level 51 mcg/mL (50-100) Valproic Acid Last Dose Date 05/25/21 Valproic Acid Last Dose Time 1600 Current Medications: Meds: Laboratory Tests Test 05/26/21 06:00 05/26/21 06:30 Coronavirus (COVID-19)(PCR) Not detected White Blood Count 6.5 x10^3/uL Red Blood Count 4.06 x10^6/uL Hemoglobin 12.9 g/dL Hematocrit 39.2 % Mean Corpuscular Volume 97 fL Mean Corpuscular Hemoglobin 32 pg Mean Corpuscular Hemoglobin Concent 33 g/dL Red Cell Distribution Width 14.6 % Platelet Count 130 x10^3/uL Neutrophils (%) (Auto) 77 % Lymphocytes (%) (Auto) 15 % Monocytes (%) (Auto) 8 % Eosinophils (%) (Auto) 0 % Basophils (%) (Auto) 0 % Neutrophils # (Auto) 5.0 x10^3uL Lymphocytes # (Auto) 1.0 x10^3/uL Monocytes # (Auto) 0.5 x10^3/uL Eosinophils # (Auto) 0.0 x10^3/uL Basophils # (Auto) 0.0 x10^3/uL Sodium Level 147 mmol/L Potassium Level 3.9 mmol/L Chloride Level 108 mmol/L Carbon Dioxide Level 30 mmol/L Anion Gap 9 Blood Urea Nitrogen 19 mg/dL Creatinine 0.8 mg/dL Estimated GFR (Cockcroft-Gault) 94.8 BUN/Creatinine Ratio 24 Glucose Level 72 mg/dL Calcium Level 8.3 mg/dL Total Bilirubin 0.3 mg/dL Aspartate Amino Transf (AST/SGOT) 13 U/L Alanine Aminotransferase (ALT/SGPT) 18 U/L Alkaline Phosphatase 77 U/L Total Protein 6.4 g/dL Albumin 3.2 g/dL Albumin/Globulin Ratio 1.0 Valproic Acid (Depakene) Level 51 mcg/mL Valproic Acid Last Dose Date 05/25/21 Valproic Acid Last Dose Time 1600 Current Medications Medications (Trade) Dose Ordered Sig/Daisy Route PRN Reason Start Time Stop Time Status Last Admin Dose Admin Acetaminophen (Tylenol) 650 mg PRN Q6HRS PRN PO MILD PAIN / TEMP > 100.3'F 05/11/21 16:15 Multi-Ingredient Ointment (Analgesic [place]) 1 eva PRN QID PRN TP MUSCLE PAIN 05/11/21 16:15 Al Hydroxide/Mg Hydroxide (Mylanta Plus Xs) 15 ml PRN AFTMEALHC PRN PO DYSPEPSIA 05/11/21 16:15 Magnesium Hydroxide (Milk Of Magnesia) 2,400 mg PRN QHS PRN PO CONSTIPATION 05/11/21 16:15 Nicotine (Nicoderm Cq 14mg Patch) 1 patch DAILY TD 05/12/21 09:00 05/26/21 08:06 Ascorbic Acid (Vitamin C) 500 mg DAILY PO 05/12/21 09:00 05/26/21 08:07 Aspirin (Aspirin Chewable) 81 mg DAILY PO 05/12/21 09:00 05/26/21 08:07 Nicotine (Nicoderm Cq 14mg Patch) 1 patch DAILY TD 05/12/21 09:00 UNV Potassium Chloride (Klor-Con) 40 meq DAILY PO 05/12/21 09:00 05/26/21 08:07 Sennosides (Senna) 8.6 mg DAILY PO 05/12/21 09:00 05/26/21 08:07 Sertraline HCl (Zoloft) 125 mg DAILY PO 05/12/21 09:00 05/18/21 18:20 DC 05/18/21 08:59 Vitamin D (Vitamin D3) 1,000 unit DAILY PO 05/12/21 09:00 05/26/21 08:07 Cyanocobalamin (Vitamin B-12) 1,000 mcg [id number] PO 05/12/21 09:00 05/12/21 08:19 Polyethylene Glycol (miraLAX) 17 gm DAILY PO 05/12/21 09:00 05/26/21 08:05 Atorvastatin Calcium (Lipitor) 10 mg QHS PO 05/12/21 21:00 05/26/21 20:31 Quetiapine Fumarate (SEROquel) 25 mg PRN BID PRN PO AGITATION 05/12/21 07:15 05/19/21 19:14 DC 05/19/21 09:35 Divalproex Sodium (Depakote Sprinkles) 125 mg [id number] PO 05/12/21 09:00 05/12/21 16:01 DC 05/12/21 08:19 Ipratropium [place] (Atrovent Nasal) 1 spray BID NS 05/12/21 09:00 05/26/21 20:31 Divalproex Sodium (Depakote Sprinkles) 250 mg [id number] PO 05/12/21 16:00 05/16/21 18:09 DC 05/16/21 15:00 Cefdinir (Omnicef) 300 mg BID PO 05/14/21 21:00 05/20/21 22:00 DC 05/20/21 21:00 Lactobacillus Rhamnosus (Culturelle) 1 cap BID PO 05/14/21 21:00 05/26/21 20:31 Carbidopa/Levodopa (Sinemet 25/100) 1 tab TID PO 05/15/21 21:00 05/26/21 20:31 Divalproex Sodium (Depakote Sprinkles) 375 mg [id number] PO 05/17/21 09:00 05/26/21 17:18 Sertraline HCl (Zoloft) 150 mg DAILY PO 05/19/21 09:00 05/26/21 08:08 Quetiapine Fumarate (SEROquel) 25 mg 0900,1700 PO 05/20/21 09:00 05/23/21 18:17 DC 05/23/21 17:00 Olanzapine (ZyPREXA ZYDIS) 2.5 mg PRN Q2HR PRN PO PSYCHOSIS 05/20/21 10:00 05/23/21 18:08 Quetiapine Fumarate (SEROquel) 25 mg 0900,1300,1700 PO 05/24/21 09:00 05/25/21 11:57 DC 05/25/21 09:00 Quetiapine Fumarate (SEROquel) 25 mg 0900,1200,1500,1800 PO 05/25/21 12:00 05/26/21 17:18 I have reviewed the current psychotropics carefully including drug interactions. Risk benefit ratio favors no change other than as noted in my dictated progress note. Diagnosis: Problems: (1) Impulse control disorder, unspecified (2) Major depressive disorder, severe (3) Anxiety disorder, unspecified (4) Dementia, vascular, with depression (5) Dementia, vascular, with delusions (6) Dementia in Alzheimer's disease with depression (7) Dementia in Alzheimer's disease with delusions (8) Dementia of the Alzheimer's type with early onset with behavioral disturbance (9) Major neurocognitive disorder (10) Mild cognitive impairment MICHAEL MCKEON MD May 26, 2021 20:55
[2021-05-27 06:24] VITALS: BP 146/76
--- NOTE | 2021-05-27 08:32 | PDOC ---
Exam Note: Daren Note: This note is a late entry for 05/25/2021 covers elements not covered in my initial note. Subjective: The patient was reviewed at treatment team meeting in the morning on 05/25/2021 with Eva Troncoso, Amanda Mobley, and Maria Esther Piña (social work specialist), Clara, activity therapy, Lauren Naylor, Experimental Electronics Developer, and Corinne MATIAS, discussed and reviewed the chart. Discussed and reviewed her diagnoses, current psychotropic medications, drug interactions and risk-benefit ratio reviewed. The patient slept 7 hours previous night. Appetite is 75%. He often refuses assistance for transfers. He transfers on his own. He refuses medications. I met with him in his room. Review of Systems: Ambulation impaired, in wheelchair. No CV, , pulmonary, eye, ENT system symptoms on review. Mental Status Exam: The patient is oriented to himself and situation. Speech has some latency, coherent. Often response is monosyllabic. Abstraction fair. Computation impaired. Language function intact. Attention span short. Mood and affect remains anxious, labile. No suicidal or homicidal ideation. Laboratory Data: Reviewed. Impression: Major depressive disorder, recurrent. Mild cognitive impairment versus major neurocognitive disorder, Alzheimer, vascular with delusion, depression, behavioral disturbance. Anxiety disorder unspecified. Impulse control disorder unspecified. Plan: No change from initial note. Repeat valproic acid level in the morning. Last check on 05/20 was 51 therapeutic. Tentative discharge once the quarantine for Covid-19 on the unit ends on 06/01/21. Increase Seroquel from 25 mg 3 times a day to 25 mg 9 a.m., noon, 3 p.m. 6 p.m. Adjust further as clinically indicated. Assessment: Vital Signs/I&O: Vital Signs Date Time Temp Pulse Resp B/P (MAP) Pulse Ox O2 Delivery O2 Flow Rate FiO2 05/27/21 06:24 96.8 64 22 146/76 (99) 99 05/26/21 16:05 Room Air l I & O 05/26/21 05/26/21 05/27/21 15:00 23:00 07:00 Intake Total 620 ml 460 ml Balance 620 ml 460 ml Current Medications: I have reviewed the current psychotropics carefully including drug interactions. Risk benefit ratio favors no change other than as noted in my dictated progress note. Diagnosis: Problems: (1) Impulse control disorder, unspecified (2) Major depressive disorder, severe (3) Anxiety disorder, unspecified (4) Dementia, vascular, with depression (5) Dementia, vascular, with delusions (6) Dementia in Alzheimer's disease with depression (7) Dementia in Alzheimer's disease with delusions (8) Dementia of the Alzheimer's type with early onset with behavioral disturbance (9) Major neurocognitive disorder MICHAEL MCKEON MD May 27, 2021 08:32
--- NOTE | 2021-05-27 08:45 | PDOC ---
Exam Note: Daren Note: This note is a late entry for 05/26/2021 covers elements not covered in my initial note. Subjective: The patient was seen individually on 05/26/2021, discussed and reviewed the chart with Corinne MATIAS. She slept 7-1/2 hours previous night. Overall he has done better today than yesterday. Valproic acid level is 51. He fell in the bathroom this morning but when I questioned him on this individually he denied it. He transfers himself, toilets himself, tried standing and that is when he fell but no injury. Review of Systems: Ambulation impaired, in wheelchair. No CV, , pulmonary, eye, ENT system symptoms on review. Mental Status Exam: The patient is oriented to himself and situation. Speech has some latency, coherent. Often response is monosyllabic. Abstraction fair. Computation impaired. Language function intact. Attention span short. Mood and affect remains anxious. No suicidal or homicidal ideation. Laboratory Data: Reviewed. Impression: Major depressive disorder, recurrent. Mild cognitive impairment versus major neurocognitive disorder, Alzheimer, vascular with delusion, depression, behavioral disturbance. Anxiety disorder unspecified. Impulse control disorder unspecified. Plan: No change from initial note. Assessment: Vital Signs/I&O: Vital Signs Date Time Temp Pulse Resp B/P (MAP) Pulse Ox O2 Delivery O2 Flow Rate FiO2 05/27/21 06:24 96.8 64 22 146/76 (99) 99 05/26/21 16:05 Room Air I & O 05/26/21 05/26/21 05/27/21 15:00 23:00 07:00 Intake Total 620 ml 460 ml Balance 620 ml 460 ml Current Medications: I have reviewed the current psychotropics carefully including drug interactions. Risk benefit ratio favors no change other than as noted in my dictated progress note. Diagnosis: Problems: (1) Impulse control disorder, unspecified (2) Major depressive disorder, severe (3) Anxiety disorder, unspecified (4) Dementia, vascular, with depression (5) Dementia, vascular, with delusions (6) Dementia in Alzheimer's disease with depression (7) Dementia in Alzheimer's disease with delusions (8) Dementia of the Alzheimer's type with early onset with behavioral disturbance (9) Major neurocognitive disorder MICHAEL MCKEON MD May 27, 2021 08:45
[2021-05-27] MEDS: NICOTINE 14MG PATCH. TD SCH (08:50)
[2021-05-27] MEDS: POLYETHYLENE GLYCOL 3350 17 GM PACKET. PO SCH (08:50)
[2021-05-27] MEDS: CARBIDOPA/LEVODOPA 25/100MG TABLET PO SCH ×3 (08:51→17:40)
[2021-05-27] MEDS: SENNOSIDES 8.6 MG TABLET PO SCH (08:51)
[2021-05-27] MEDS: QUEtiapine 25 MG TABLET. PO SCH ×4 (08:51→17:40)
[2021-05-27] MEDS: ASPIRIN CHEWABLE 81 MG TABLET. PO SCH (08:51)
[2021-05-27] MEDS: CHOLECALCIFEROL (VITAMIN D3) 1,000 UNIT TABLET PO SCH (08:51)
[2021-05-27] MEDS: DIVALPROEX 125 MG CAP.SPRINK PO SCH ×2 (08:51→14:52)
[2021-05-27] MEDS: SERTRALINE 50 MG TABLET. PO SCH (08:51)
[2021-05-27] MEDS: LACTOBACILLUS RHAMNOSUS GG 1 CAPSULE. PO SCH ×2 (08:51→17:40)
[2021-05-27] MEDS: POTASSIUM CHLORIDE 20 MEQ TABLET.ER. PO SCH (08:51)
[2021-05-27] MEDS: IPRATROPIUM BROMIDE 0.06% NASAL SPRAY 15ML BOTTLE NS SCH ×2 (08:52→17:40)
[2021-05-27] MEDS: ASCORBIC ACID 500 MG TABLET PO SCH (08:53)
[2021-05-27 15:25] VITALS: BP 126/80
[2021-05-27 15:28] VITALS: BP 105/61
[2021-05-27] MEDS: ATORVASTATIN CALCIUM 10 MG TABLET. PO SCH (17:40)
--- NOTE | 2021-05-27 22:04 | PDOC ---
Exam Note: Daren Note: Please also refer to the separate dictated note~for this date of service dictated separately.~Patient seen individually. Discussed the patient with Nursing staff reviewed the chart.~Reviewed interim history and current functioning. Reviewed vital signs,~Labs/ Radiology~and current medications noted below. Continue current treatment with the changes noted in the dictated addendum note Assessment: Vital Signs/I&O: Vital Signs Date Time Temp Pulse Resp B/P (MAP) Pulse Ox O2 Delivery O2 Flow Rate FiO2 05/27/21 15:28 97.7 82 18 105/61 (76) 98 05/26/21 16:05 Room Air I & O 05/26/21 05/26/21 05/27/21 15:00 23:00 07:00 Intake Total 620 ml 460 ml Balance 620 ml 460 ml Current Medications: Meds: Current Medications Medications (Trade) Dose Ordered Sig/Daisy Route PRN Reason Start Time Stop Time Status Last Admin Dose Admin Acetaminophen (Tylenol) 650 mg PRN Q6HRS PRN PO MILD PAIN / TEMP > 100.3'F 05/11/21 16:15 Multi-Ingredient Ointment (Analgesic [place]) 1 eva PRN QID PRN TP MUSCLE PAIN 05/11/21 16:15 Al Hydroxide/Mg Hydroxide (Mylanta Plus Xs) 15 ml PRN AFTMEALHC PRN PO DYSPEPSIA 05/11/21 16:15 Magnesium Hydroxide (Milk Of Magnesia) 2,400 mg PRN QHS PRN PO CONSTIPATION 05/11/21 16:15 Nicotine (Nicoderm Cq 14mg Patch) 1 patch DAILY TD 05/12/21 09:00 05/27/21 08:50 Ascorbic Acid (Vitamin C) 500 mg DAILY PO 05/12/21 09:00 05/27/21 08:53 Aspirin (Aspirin Chewable) 81 mg DAILY PO 05/12/21 09:00 05/27/21 08:51 Nicotine (Nicoderm Cq 14mg Patch) 1 patch DAILY TD 05/12/21 09:00 UNV Potassium Chloride (Klor-Con) 40 meq DAILY PO 05/12/21 09:00 05/27/21 08:51 Sennosides (Senna) 8.6 mg DAILY PO 05/12/21 09:00 05/27/21 08:51 Sertraline HCl (Zoloft) 125 mg DAILY PO 05/12/21 09:00 05/18/21 18:20 DC 05/18/21 08:59 Vitamin D (Vitamin D3) 1,000 unit DAILY PO 05/12/21 09:00 05/27/21 08:51 Cyanocobalamin (Vitamin B-12) 1,000 mcg [id number] PO 05/12/21 09:00 05/12/21 08:19 Polyethylene Glycol (miraLAX) 17 gm DAILY PO 05/12/21 09:00 05/27/21 08:50 Atorvastatin Calcium (Lipitor) 10 mg QHS PO 05/12/21 21:00 05/27/21 17:40 Quetiapine Fumarate (SEROquel) 25 mg PRN BID PRN PO AGITATION 05/12/21 07:15 05/19/21 19:14 DC 05/19/21 09:35 Divalproex Sodium (Depakote Sprinkles) 125 mg [id number] PO 05/12/21 09:00 05/12/21 16:01 DC 05/12/21 08:19 Ipratropium [place] (Atrovent Nasal) 1 spray BID NS 05/12/21 09:00 05/27/21 08:52 Divalproex Sodium (Depakote Sprinkles) 250 mg BID94 PO 05/12/21 16:00 05/16/21 18:09 DC 05/16/21 15:00 Cefdinir (Omnicef) 300 mg BID PO 05/14/21 21:00 05/20/21 22:00 DC 05/20/21 21:00 Lactobacillus Rhamnosus (Culturelle) 1 cap BID PO 05/14/21 21:00 05/27/21 17:40 Carbidopa/Levodopa (Sinemet 25/100) 1 tab TID PO 05/15/21 21:00 05/27/21 17:40 Divalproex Sodium (Depakote Sprinkles) 375 mg BID94 PO 05/17/21 09:00 05/27/21 19:14 DC 05/27/21 14:52 Sertraline HCl (Zoloft) 150 mg DAILY PO 05/19/21 09:00 05/27/21 08:51 Quetiapine Fumarate (SEROquel) 25 mg 0900,1700 PO 05/20/21 09:00 2/22 18:17 DC 05/23/21 17:00 Olanzapine (ZyPREXA ZYDIS) 2.5 mg PRN Q2HR PRN PO PSYCHOSIS 05/20/21 10:00 05/27/21 17:42 Quetiapine Fumarate (SEROquel) 25 mg 0900,1300,1700 PO 05/24/21 09:00 05/25/21 11:57 DC 05/25/21 09:00 Quetiapine Fumarate (SEROquel) 25 mg 0900,1200,1500,1800 PO 05/25/21 12:00 05/27/21 17:40 Divalproex Sodium (Depakote Sprinkles) 500 mg BID94 PO 05/28/21 09:00 I have reviewed the current psychotropics carefully including drug interactions. Risk benefit ratio favors no change other than as noted in my dictated progress note. Diagnosis: Problems: (1) Impulse control disorder, unspecified (2) Major depressive disorder, severe (3) Anxiety disorder, unspecified (4) Dementia, vascular, with depression (5) Dementia, vascular, with delusions (6) Dementia in Alzheimer's disease with depression (7) Dementia in Alzheimer's disease with delusions (8) Dementia of the Alzheimer's type with early onset with behavioral disturbance (9) Major neurocognitive disorder (10) Mild cognitive impairment MICHAEL MCKEON MD May 27, 2021 22:04
[2021-05-28 06:00] VITALS: BP 136/77
--- NOTE | 2021-05-28 06:47 | PDOC ---
Exam Note: Daren Note: This note is a late entry for 05/24/2021 covers elements not covered in my initial note. Subjective: The patient was seen individually on 05/24/2021, discussed and reviewed the chart with Karey MATIAS. The patient slept 8-1/2 hours previous night. Reportedly per nursing report, the patient was staying in bed all the time if he is left to do that. He has been using profanities at staff when they assist him with ADLs. He has been eating better in the evening, taking his medications but paranoid. Review of Systems: Ambulation impaired, in wheelchair. No CV, , pulmonary, eye, ENT system symptoms on review. Mental Status Exam: The patient is alert and oriented to himself and situation. Speech is coherent. Often response is monosyllabic. Abstraction fair. Computation impaired. Language function intact. Attention span short. Mood and affect remains anxious, labile. Laboratory Data: Reviewed. Impression: Major depressive disorder recurrent. Mild cognitive impairment versus major neurocognitive disorder, Alzheimer, vascular with delusion, depression, behavioral disturbance. Anxiety disorder unspecified. Impulse control disorder unspecified. Plan: Continue psychotropics unchanged. Adjust further as clinically indicated. Assessment: Vital Signs/I&O: Vital Signs Date Time Temp Pulse Resp B/P (MAP) Pulse Ox O2 Delivery O2 Flow Rate FiO2 05/28/21 06:00 98.0 92 16 136/77 (96) 96 05/26/21 16:05 Room Air I & O 05/27/21 05/27/21 05/28/21 15:00 23:00 07:00 Intake Total 940 ml 360 ml Balance 940 ml 360 ml Current Medications: I have reviewed the current psychotropics carefully including drug interactions. Risk benefit ratio favors no change other than as noted in my dictated progress note. Diagnosis: Problems: (1) Impulse control disorder, unspecified (2) Major depressive disorder, severe (3) Anxiety disorder, unspecified (4) Dementia, vascular, with depression (5) Dementia, vascular, with delusions (6) Dementia in Alzheimer's disease with depression (7) Dementia in Alzheimer's disease with delusions (8) Dementia of the Alzheimer's type with early onset with behavioral disturbance (9) Major neurocognitive disorder (10) Mild cognitive impairment MICHAEL MCKEON MD May 28, 2021 06:47
--- NOTE | 2021-05-28 07:03 | PDOC ---
Exam Note: Daren Note: This note is a late entry for 05/27/2021 covers elements not covered in my initial note. Subjective: The patient was seen individually on 05/27/2021, discussed and reviewed the chart with Corinne MATIAS. He slept 8 hours previous night. He had marked mood lability, cursing at [facility], nursing aid, swinging at a staff member, threw her supper tray on the floor and later apologetic for this. Review of Systems: Ambulation impaired, in wheelchair. No CV, , pulmonary, eye, ENT system symptoms on review. Reliability poor. Mental Status Exam: The patient is oriented to himself and situation. Speech has some latency, coherent. Abstraction fair. Computation impaired. Language function intact, somewhat distractible. No suicidal or homicidal ideation. Laboratory Data: Reviewed. Impression: Major depressive disorder, recurrent. Mild cognitive impairment versus major neurocognitive disorder, Alzheimer, vascular with delusion, depression, behavioral disturbance. Anxiety disorder unspecified. Impulse control disorder unspecified. Plan: No change from initial note. Continue current psychotropics. Valproic acid level is low therapeutic at 51 on Depakote 375 mg twice a day, we will increase to 500 mg twice a day. Check CBC, CMP, valproic acid level in 3 days. Maintain Seroquel, Zoloft, unchanged and also on Sinemet. Adjust further as clinically indicated. Assessment: Vital Signs/I&O: Vital Signs Date Time Temp Pulse Resp B/P (MAP) Pulse Ox O2 Delivery O2 Flow Rate FiO2 05/28/21 06:00 98.0 92 16 136/77 (96) 96 05/26/21 16:05 Room Air I & O 05/27/21 05/27/21 05/28/21 15:00 23:00 07:00 Intake Total 940 ml 360 ml Balance 940 ml 360 ml Current Medications: I have reviewed the current psychotropics carefully including drug interactions. Risk benefit ratio favors no change other than as noted in my dictated progress note. Diagnosis: Problems: (1) Impulse control disorder, unspecified (2) Major depressive disorder, severe (3) Anxiety disorder, unspecified (4) Dementia, vascular, with depression (5) Dementia, vascular, with delusions (6) Dementia in Alzheimer's disease with depression (7) Dementia in Alzheimer's disease with delusions (8) Dementia of the Alzheimer's type with early onset with behavioral disturbance (9) Major neurocognitive disorder (10) Mild cognitive impairment MICHAEL MCKEON MD May 28, 2021 07:03
[2021-05-28] MEDS: NICOTINE 14MG PATCH. TD SCH (08:14)
[2021-05-28] MEDS: POLYETHYLENE GLYCOL 3350 17 GM PACKET. PO SCH (08:14)
[2021-05-28] MEDS: LACTOBACILLUS RHAMNOSUS GG 1 CAPSULE. PO SCH ×2 (08:15→19:53)
[2021-05-28] MEDS: SENNOSIDES 8.6 MG TABLET PO SCH (08:15)
[2021-05-28] MEDS: POTASSIUM CHLORIDE 20 MEQ TABLET.ER. PO SCH (08:15)
[2021-05-28] MEDS: QUEtiapine 25 MG TABLET. PO SCH ×4 (08:15→18:00)
[2021-05-28] MEDS: ASPIRIN CHEWABLE 81 MG TABLET. PO SCH (08:15)
[2021-05-28] MEDS: CARBIDOPA/LEVODOPA 25/100MG TABLET PO SCH ×3 (08:15→19:53)
[2021-05-28] MEDS: CHOLECALCIFEROL (VITAMIN D3) 1,000 UNIT TABLET PO SCH (08:15)
[2021-05-28] MEDS: ASCORBIC ACID 500 MG TABLET PO SCH (08:16)
[2021-05-28] MEDS: DIVALPROEX 125 MG CAP.SPRINK PO SCH ×2 (08:16→16:32)
[2021-05-28] MEDS: SERTRALINE 50 MG TABLET. PO SCH (08:16)
[2021-05-28] MEDS: IPRATROPIUM BROMIDE 0.06% NASAL SPRAY 15ML BOTTLE NS SCH ×2 (09:00→19:55)
[2021-05-28 15:45] VITALS: BP_SYST 100; BP_SYST 142; BP_DIAS 61; BP_DIAS 82
[2021-05-28] MEDS: ATORVASTATIN CALCIUM 10 MG TABLET. PO SCH (19:53)
--- NOTE | 2021-05-28 21:39 | PDOC ---
Exam Note: Daren Note: Please also refer to the separate dictated note~for this date of service dictated separately.~Patient seen individually. Discussed the patient with Nursing staff reviewed the chart.~Reviewed interim history and current functioning. Reviewed vital signs,~Labs/ Radiology~and current medications noted below. Continue current treatment with the changes noted in the dictated addendum note Assessment: Vital Signs/I&O: Vital Signs Date Time Temp Pulse Resp B/P (MAP) Pulse Ox O2 Delivery O2 Flow Rate FiO2 05/28/21 15:45 97.5 81 20 100/61 (74) 99 05/26/21 16:05 Room Air I & O 05/27/21 05/27/21 05/28/21 15:00 23:00 07:00 Intake Total 940 ml 360 ml Balance 940 ml 360 ml Current Medications: Meds: Current Medications Medications (Trade) Dose Ordered Sig/Daisy Route PRN Reason Start Time Stop Time Status Last Admin Dose Admin Acetaminophen (Tylenol) 650 mg PRN Q6HRS PRN PO MILD PAIN / TEMP > 100.3'F 05/11/21 16:15 Multi-Ingredient Ointment (Analgesic [place]) 1 eva PRN QID PRN TP MUSCLE PAIN 05/11/21 16:15 Al Hydroxide/Mg Hydroxide (Mylanta Plus Xs) 15 ml PRN AFTMEALHC PRN PO DYSPEPSIA 05/11/21 16:15 Magnesium Hydroxide (Milk Of Magnesia) 2,400 mg PRN QHS PRN PO CONSTIPATION 05/11/21 16:15 Nicotine (Nicoderm Cq 14mg Patch) 1 patch DAILY TD 05/12/21 09:00 05/28/21 08:14 Ascorbic Acid (Vitamin C) 500 mg DAILY PO 05/12/21 09:00 05/28/21 08:16 Aspirin (Aspirin Chewable) 81 mg DAILY PO 05/12/21 09:00 05/28/21 08:15 Nicotine (Nicoderm Cq 14mg Patch) 1 patch DAILY TD 05/12/21 09:00 UNV Potassium Chloride (Klor-Con) 40 meq DAILY PO 05/12/21 09:00 05/28/21 08:15 Sennosides (Senna) 8.6 mg DAILY PO 05/12/21 09:00 05/28/21 08:15 Sertraline HCl (Zoloft) 125 mg DAILY PO 05/12/21 09:00 05/18/21 18:20 DC 05/18/21 08:59 Vitamin D (Vitamin D3) 1,000 unit DAILY PO 05/12/21 09:00 05/28/21 08:15 Cyanocobalamin (Vitamin B-12) 1,000 mcg [id number] PO 05/12/21 09:00 05/12/21 08:19 Polyethylene Glycol (miraLAX) 17 gm DAILY PO 05/12/21 09:00 05/28/21 08:14 Atorvastatin Calcium (Lipitor) 10 mg QHS PO 05/12/21 21:00 05/28/21 19:53 Quetiapine Fumarate (SEROquel) 25 mg PRN BID PRN PO AGITATION 05/12/21 07:15 05/19/21 19:14 DC 05/19/21 09:35 Divalproex Sodium (Depakote Sprinkles) 125 mg [id number] PO 05/12/21 09:00 05/12/21 16:01 DC 05/12/21 08:19 Ipratropium [place] (Atrovent Nasal) 1 spray BID NS 05/12/21 09:00 05/28/21 19:55 Divalproex Sodium (Depakote Sprinkles) 250 mg [id number] PO 05/12/21 16:00 05/16/21 18:09 DC 05/16/21 15:00 Cefdinir (Omnicef) 300 mg BID PO 05/14/21 21:00 05/20/21 22:00 DC 05/20/21 21:00 Lactobacillus Rhamnosus (Culturelle) 1 cap BID PO 05/14/21 21:00 05/28/21 19:53 Carbidopa/Levodopa (Sinemet 25/100) 1 tab TID PO 05/15/21 21:00 05/28/21 19:53 Divalproex Sodium (Depakote Sprinkles) 375 mg [id number] PO 05/17/21 09:00 05/27/21 19:14 DC 05/27/21 14:52 Sertraline HCl (Zoloft) 150 mg DAILY PO 05/19/21 09:00 05/28/21 08:16 Quetiapine Fumarate (SEROquel) 25 mg 0900,1700 PO 05/20/21 09:00 2/8/22 18:17 DC 05/23/21 17:00 Olanzapine (ZyPREXA ZYDIS) 2.5 mg PRN Q2HR PRN PO PSYCHOSIS 05/20/21 10:00 05/27/21 17:42 Quetiapine Fumarate (SEROquel) 25 mg 0900,1300,1700 PO 05/24/21 09:00 05/25/21 11:57 DC 05/25/21 09:00 Quetiapine Fumarate (SEROquel) 25 mg 0900,1200,1500,1800 PO 05/25/21 12:00 05/28/21 18:00 Divalproex Sodium (Depakote Sprinkles) 500 mg [id number] PO 05/28/21 09:00 05/28/21 16:32 Current Medications Medications (Trade) Dose Ordered Sig/Daisy Route PRN Reason Start Time Stop Time Status Last Admin Dose Admin Divalproex Sodium (Depakote Sprinkles) 500 mg BID94 PO 05/28/21 09:00 05/28/21 16:32 I have reviewed the current psychotropics carefully including drug interactions. Risk benefit ratio favors no change other than as noted in my dictated progress note. Diagnosis: Problems: (1) Impulse control disorder, unspecified (2) Major depressive disorder, severe (3) Anxiety disorder, unspecified (4) Dementia, vascular, with depression (5) Dementia, vascular, with delusions (6) Dementia in Alzheimer's disease with depression (7) Dementia in Alzheimer's disease with delusions (8) Dementia of the Alzheimer's type with early onset with behavioral disturbance (9) Major neurocognitive disorder (10) Mild cognitive impairment MICHAEL MCKEON MD May 28, 2021 21:39
[2021-05-29 06:13] VITALS: BP 107/67
--- NOTE | 2021-05-29 07:28 | PDOC ---
Exam Note: Daren Note: This note is a late entry for 05/28/2021 covers elements not covered in my initial note. Subjective: The patient was seen individually on 05/28/2021, discussed and reviewed the chart with Dustin MATIAS. Per nursing report, the patient is doing about the same. He now has a roommate and seems to be adapting to this. Review of Systems: Ambulation impaired, in wheelchair. No CV, , pulmonary, eye, ENT system symptoms on review. Reliability poor. Mental Status Exam: The patient is oriented to himself and situation. Speech has some latency, often response is monosyllabic, coherent. Abstraction fair. Computation impaired. Language function intact. Attention span short. Mood and affect somewhat withdrawn at times. Laboratory Data: Reviewed. Impression: Major depressive disorder, recurrent. Mild cognitive impairment versus major neurocognitive disorder, Alzheimer, vascular with delusion, depression, behavioral disturbance. Anxiety disorder unspecified. Impulse control disorder unspecified. Plan: No change from initial note. Assessment: Vital Signs/I&O: Vital Signs Date Time Temp Pulse Resp B/P (MAP) Pulse Ox O2 Delivery O2 Flow Rate FiO2 05/29/21 06:13 98.7 70 18 107/67 (80) 98 Room Air I & O 05/28/21 05/28/21 05/29/21 15:00 23:00 07:00 Intake Total 600 ml 240 ml Balance 600 ml 240 ml Current Medications: Meds: Current Medications Medications (Trade) Dose Ordered Sig/Daisy Route PRN Reason Start Time Stop Time Status Last Admin Dose Admin Divalproex Sodium (Depakote Sprinkles) 500 mg BID94 PO 05/28/21 09:00 05/28/21 16:32 I have reviewed the current psychotropics carefully including drug interactions. Risk benefit ratio favors no change other than as noted in my dictated progress note. Diagnosis: Problems: (1) Impulse control disorder, unspecified (2) Major depressive disorder, severe (3) Anxiety disorder, unspecified (4) Dementia, vascular, with depression (5) Dementia, vascular, with delusions (6) Dementia in Alzheimer's disease with depression (7) Dementia in Alzheimer's disease with delusions (8) Dementia of the Alzheimer's type with early onset with behavioral disturbance (9) Major neurocognitive disorder MICHAEL MCKEON MD May 29, 2021 07:28
[2021-05-29] MEDS: POLYETHYLENE GLYCOL 3350 17 GM PACKET. PO SCH (08:44)
[2021-05-29] MEDS: IPRATROPIUM BROMIDE 0.06% NASAL SPRAY 15ML BOTTLE NS SCH ×2 (08:44→20:18)
[2021-05-29] MEDS: SERTRALINE 50 MG TABLET. PO SCH (08:46)
[2021-05-29] MEDS: POTASSIUM CHLORIDE 20 MEQ TABLET.ER. PO SCH (08:46)
[2021-05-29] MEDS: LACTOBACILLUS RHAMNOSUS GG 1 CAPSULE. PO SCH ×2 (08:46→20:17)
[2021-05-29] MEDS: NICOTINE 14MG PATCH. TD SCH (08:46)
[2021-05-29] MEDS: CHOLECALCIFEROL (VITAMIN D3) 1,000 UNIT TABLET PO SCH (08:47)
[2021-05-29] MEDS: CARBIDOPA/LEVODOPA 25/100MG TABLET PO SCH ×3 (08:47→20:17)
[2021-05-29] MEDS: DIVALPROEX 125 MG CAP.SPRINK PO SCH ×2 (08:47→17:06)
[2021-05-29] MEDS: ASCORBIC ACID 500 MG TABLET PO SCH (08:47)
[2021-05-29] MEDS: ASPIRIN CHEWABLE 81 MG TABLET. PO SCH (08:47)
[2021-05-29] MEDS: QUEtiapine 25 MG TABLET. PO SCH ×4 (08:47→17:06)
[2021-05-29] MEDS: SENNOSIDES 8.6 MG TABLET PO SCH (08:47)
[2021-05-29 15:34] VITALS: BP 111/59
[2021-05-29] MEDS: ATORVASTATIN CALCIUM 10 MG TABLET. PO SCH (20:18)
--- NOTE | 2021-05-29 21:51 | PDOC ---
Exam Note: Daren Note: Please also refer to the separate dictated note~for this date of service dictated separately.~Patient seen individually. Discussed the patient with Nursing staff reviewed the chart.~Reviewed interim history and current functioning. Reviewed vital signs,~Labs/ Radiology~and current medications noted below. Continue current treatment with the changes noted in the dictated addendum note Assessment: Vital Signs/I&O: Vital Signs Date Time Temp Pulse Resp B/P (MAP) Pulse Ox O2 Delivery O2 Flow Rate FiO2 05/29/21 15:34 98.7 70 16 111/59 (76) 100 05/29/21 06:13 Room Air I & O 05/28/21 05/28/21 05/29/21 15:00 23:00 07:00 Intake Total 600 ml 240 ml Balance 600 ml 240 ml Current Medications: Meds: Current Medications Medications (Trade) Dose Ordered Sig/Daisy Route PRN Reason Start Time Stop Time Status Last Admin Dose Admin Acetaminophen (Tylenol) 650 mg PRN Q6HRS PRN PO MILD PAIN / TEMP > 100.3'F 05/11/21 16:15 Multi-Ingredient Ointment (Analgesic [place]) 1 eva PRN QID PRN TP MUSCLE PAIN 05/11/21 16:15 Al Hydroxide/Mg Hydroxide (Mylanta Plus Xs) 15 ml PRN AFTMEALHC PRN PO DYSPEPSIA 05/11/21 16:15 Magnesium Hydroxide (Milk Of Magnesia) 2,400 mg PRN QHS PRN PO CONSTIPATION 05/11/21 16:15 Nicotine (Nicoderm Cq 14mg Patch) 1 patch DAILY TD 05/12/21 09:00 05/29/21 08:46 Ascorbic Acid (Vitamin C) 500 mg DAILY PO 05/12/21 09:00 05/29/21 08:47 Aspirin (Aspirin Chewable) 81 mg DAILY PO 05/12/21 09:00 05/29/21 08:47 Nicotine (Nicoderm Cq 14mg Patch) 1 patch DAILY TD 05/12/21 09:00 UNV Potassium Chloride (Klor-Con) 40 meq DAILY PO 05/12/21 09:00 05/29/21 08:46 Sennosides (Senna) 8.6 mg DAILY PO 05/12/21 09:00 05/29/21 08:47 Sertraline HCl (Zoloft) 125 mg DAILY PO 05/12/21 09:00 05/18/21 18:20 DC 05/18/21 08:59 Vitamin D (Vitamin D3) 1,000 unit DAILY PO 05/12/21 09:00 05/29/21 08:47 Cyanocobalamin (Vitamin B-12) 1,000 mcg [id number] PO 05/12/21 09:00 05/12/21 08:19 Polyethylene Glycol (miraLAX) 17 gm DAILY PO 05/12/21 09:00 05/29/21 08:44 Atorvastatin Calcium (Lipitor) 10 mg QHS PO 05/12/21 21:00 05/29/21 20:18 Quetiapine Fumarate (SEROquel) 25 mg PRN BID PRN PO AGITATION 05/12/21 07:15 05/19/21 19:14 DC 05/19/21 09:35 Divalproex Sodium (Depakote Sprinkles) 125 mg [id number] PO 05/12/21 09:00 05/12/21 16:01 DC 05/12/21 08:19 Ipratropium [place] (Atrovent Nasal) 1 spray BID NS 05/12/21 09:00 05/29/21 20:18 Divalproex Sodium (Depakote Sprinkles) 250 mg BID94 PO 05/12/21 16:00 05/16/21 18:09 DC 05/16/21 15:00 Cefdinir (Omnicef) 300 mg BID PO 05/14/21 21:00 05/20/21 22:00 DC 05/20/21 21:00 Lactobacillus Rhamnosus (Culturelle) 1 cap BID PO 05/14/21 21:00 05/29/21 20:17 Carbidopa/Levodopa (Sinemet 25/100) 1 tab TID PO 05/15/21 21:00 05/29/21 20:17 Divalproex Sodium (Depakote Sprinkles) 375 mg BID94 PO 05/17/21 09:00 05/27/21 19:14 DC 05/27/21 14:52 Sertraline HCl (Zoloft) 150 mg DAILY PO 05/19/21 09:00 05/29/21 08:46 Quetiapine Fumarate (SEROquel) 25 mg 0900,1700 PO 05/20/21 09:00 2/22 18:17 DC 05/23/21 17:00 Olanzapine (ZyPREXA ZYDIS) 2.5 mg PRN Q2HR PRN PO PSYCHOSIS 05/20/21 10:00 05/27/21 17:42 Quetiapine Fumarate (SEROquel) 25 mg 0900,1300,1700 PO 05/24/21 09:00 05/25/21 11:57 DC 05/25/21 09:00 Quetiapine Fumarate (SEROquel) 25 mg 0900,1200,1500,1800 PO 05/25/21 12:00 05/29/21 17:06 Divalproex Sodium (Depakote Sprinkles) 500 mg BID94 PO 05/28/21 09:00 05/29/21 17:06 I have reviewed the current psychotropics carefully including drug interactions. Risk benefit ratio favors no change other than as noted in my dictated progress note. Diagnosis: Problems: (1) Impulse control disorder, unspecified (2) Major depressive disorder, severe (3) Anxiety disorder, unspecified (4) Dementia, vascular, with depression (5) Dementia, vascular, with delusions (6) Dementia in Alzheimer's disease with depression (7) Dementia in Alzheimer's disease with delusions (8) Dementia of the Alzheimer's type with early onset with behavioral disturbance (9) Major neurocognitive disorder MICHAEL MCKEON MD May 29, 2021 21:50
[2021-05-30 06:11] VITALS: BP_SYST 114; BP_SYST 124; BP_DIAS 66; BP_DIAS 73
[2021-05-30] MEDS: SENNOSIDES 8.6 MG TABLET PO SCH (09:04)
[2021-05-30] MEDS: ASPIRIN CHEWABLE 81 MG TABLET. PO SCH (09:04)
[2021-05-30] MEDS: NICOTINE 14MG PATCH. TD SCH (09:04)
[2021-05-30] MEDS: POTASSIUM CHLORIDE 20 MEQ TABLET.ER. PO SCH (09:05)
[2021-05-30] MEDS: POLYETHYLENE GLYCOL 3350 17 GM PACKET. PO SCH (09:05)
[2021-05-30] MEDS: QUEtiapine 25 MG TABLET. PO SCH ×4 (09:05→17:56)
[2021-05-30] MEDS: LACTOBACILLUS RHAMNOSUS GG 1 CAPSULE. PO SCH ×2 (09:05→21:14)
[2021-05-30] MEDS: ASCORBIC ACID 500 MG TABLET PO SCH (09:05)
[2021-05-30] MEDS: SERTRALINE 50 MG TABLET. PO SCH (09:05)
[2021-05-30] MEDS: CARBIDOPA/LEVODOPA 25/100MG TABLET PO SCH ×3 (09:05→21:14)
[2021-05-30] MEDS: CHOLECALCIFEROL (VITAMIN D3) 1,000 UNIT TABLET PO SCH (09:05)
[2021-05-30] MEDS: DIVALPROEX 125 MG CAP.SPRINK PO SCH ×2 (09:05→17:57)
[2021-05-30] MEDS: IPRATROPIUM BROMIDE 0.06% NASAL SPRAY 15ML BOTTLE NS SCH ×2 (09:06→21:15)
[2021-05-30 15:32] VITALS: BP 113/72
[2021-05-30] MEDS: ATORVASTATIN CALCIUM 10 MG TABLET. PO SCH (21:14)
--- NOTE | 2021-05-30 21:34 | PDOC ---
Exam Note: Daren Note: Please also refer to the separate dictated note~for this date of service dictated separately.~Patient seen individually. Discussed the patient with Nursing staff reviewed the chart.~Reviewed interim history and current functioning. Reviewed vital signs,~Labs/ Radiology~and current medications noted below. Continue current treatment with the changes noted in the dictated addendum note Assessment: Vital Signs/I&O: Vital Signs Date Time Temp Pulse Resp B/P (MAP) Pulse Ox O2 Delivery O2 Flow Rate FiO2 05/30/21 15:32 98.1 75 16 113/72 (86) 96 05/30/21 06:11 Room Air I & O 05/29/21 05/29/21 05/30/21 15:00 23:00 07:00 Intake Total 720 ml 720 ml Balance 720 ml 720 ml Labs: Laboratory Tests Test 05/30/21 06:00 SARS-CoV-2 (PCR) Positive (NOT DETECTD) *A Current Medications: Meds: Laboratory Tests Test 05/30/21 06:00 Coronavirus (COVID-19)(PCR) Positive Current Medications Medications (Trade) Dose Ordered Sig/Daisy Route PRN Reason Start Time Stop Time Status Last Admin Dose Admin Acetaminophen (Tylenol) 650 mg PRN Q6HRS PRN PO MILD PAIN / TEMP > 100.3'F 05/11/21 16:15 Multi-Ingredient Ointment (Analgesic [place]) 1 eva PRN QID PRN TP MUSCLE PAIN 05/11/21 16:15 Al Hydroxide/Mg Hydroxide (Mylanta Plus Xs) 15 ml PRN AFTMEALHC PRN PO DYSPEPSIA 05/11/21 16:15 Magnesium Hydroxide (Milk Of Magnesia) 2,400 mg PRN QHS PRN PO CONSTIPATION 05/11/21 16:15 Nicotine (Nicoderm Cq 14mg Patch) 1 patch DAILY TD 05/12/21 09:00 05/30/21 17:27 DC 05/29/21 08:46 Ascorbic Acid (Vitamin C) 500 mg DAILY PO 05/12/21 09:00 05/30/21 09:05 Aspirin (Aspirin Chewable) 81 mg DAILY PO 05/12/21 09:00 05/30/21 09:04 Nicotine (Nicoderm Cq 14mg Patch) 1 patch DAILY TD 05/12/21 09:00 UNV Potassium Chloride (Klor-Con) 40 meq DAILY PO 05/12/21 09:00 05/30/21 09:05 Sennosides (Senna) 8.6 mg DAILY PO 05/12/21 09:00 05/30/21 09:04 Sertraline HCl (Zoloft) 125 mg DAILY PO 05/12/21 09:00 05/18/21 18:20 DC 05/18/21 08:59 Vitamin D (Vitamin D3) 1,000 unit DAILY PO 05/12/21 09:00 05/30/21 09:05 Cyanocobalamin (Vitamin B-12) 1,000 mcg [id number] PO 05/12/21 09:00 05/12/21 08:19 Polyethylene Glycol (miraLAX) 17 gm DAILY PO 05/12/21 09:00 05/30/21 09:05 Atorvastatin Calcium (Lipitor) 10 mg QHS PO 05/12/21 21:00 05/30/21 21:14 Quetiapine Fumarate (SEROquel) 25 mg PRN BID PRN PO AGITATION 05/12/21 07:15 05/19/21 19:14 DC 05/19/21 09:35 Divalproex Sodium (Depakote Sprinkles) 125 mg [id number] PO 05/12/21 09:00 05/12/21 16:01 DC 05/12/21 08:19 Ipratropium [place] (Atrovent Nasal) 1 spray BID NS 05/12/21 09:00 05/30/21 21:15 Divalproex Sodium (Depakote Sprinkles) 250 mg [id number] PO 05/12/21 16:00 05/16/21 18:09 DC 05/16/21 15:00 Cefdinir (Omnicef) 300 mg BID PO 05/14/21 21:00 05/20/21 22:00 DC 05/20/21 21:00 Lactobacillus Rhamnosus (Culturelle) 1 cap BID PO 05/14/21 21:00 05/30/21 21:14 Carbidopa/Levodopa (Sinemet 25/100) 1 tab TID PO 05/15/21 21:00 05/30/21 21:14 Divalproex Sodium (Depakote Sprinkles) 375 mg BID94 PO 05/17/21 09:00 05/27/21 19:14 DC 05/27/21 14:52 Sertraline HCl (Zoloft) 150 mg DAILY PO 05/19/21 09:00 05/30/21 09:05 Quetiapine Fumarate (SEROquel) 25 mg 0900,1700 PO 05/20/21 09:00 05/23/21 18:17 DC 05/23/21 17:00 Olanzapine (ZyPREXA ZYDIS) 2.5 mg PRN Q2HR PRN PO PSYCHOSIS 05/20/21 10:00 05/27/21 17:42 Quetiapine Fumarate (SEROquel) 25 mg 0900,1300,1700 PO 05/24/21 09:00 05/25/21 11:57 DC 05/25/21 09:00 Quetiapine Fumarate (SEROquel) 25 mg 0900,1200,1500,1800 PO 05/25/21 12:00 05/30/21 17:56 Divalproex Sodium (Depakote Sprinkles) 500 mg [id number] PO 05/28/21 09:00 05/30/21 17:57 Nicotine (Nicoderm Cq 7mg Patch) 1 patch DAILY TD 05/31/21 09:00 I have reviewed the current psychotropics carefully including drug interactions. Risk benefit ratio favors no change other than as noted in my dictated progress note. Diagnosis: Problems: (1) Impulse control disorder, unspecified (2) Major depressive disorder, severe (3) Anxiety disorder, unspecified (4) Dementia, vascular, with depression (5) Dementia, vascular, with delusions (6) Dementia in Alzheimer's disease with depression (7) Dementia in Alzheimer's disease with delusions (8) Dementia of the Alzheimer's type with early onset with behavioral disturbance (9) Major neurocognitive disorder (10) Mild cognitive impairment MICHAEL MCKEON MD May 30, 2021 21:33
[2021-05-31 06:19] VITALS: BP 128/86
[2021-05-31 06:29] LABS: BASO % 1 % (0-3); EOS % 1 % (0-3); HEMATOCRIT 37.5 % (39.0-53.0); HEMOGLOBIN 12.4 g/dL (13.0-17.5); LYMPH % 22 % (24-48); MEAN CORPUSCULAR HEMOGLOBIN 32 pg (25-35); MEAN CORPUSCULAR HGB CONC 33 g/dL (31-37); MEAN CORPUSCULAR VOLUME 96 fL (79-100); MONO # 0.5 x10^3/uL (0.0-1.1); MONO % 11 % (0-9); NEUT % 66 % (31-73); PLATELET COUNT 123 x10^3/uL (140-400); RED BLOOD COUNT 3.92 x10^6/uL (4.30-5.70); RED CELL DISTRIBUTION WIDTH 14.4 % (11.5-14.5); WHITE BLOOD COUNT 4.6 x10^3/uL (4.0-11.0)
[2021-05-31 06:49] LABS: ALBUMIN 3.2 g/dL (3.4-5.0); ALBUMIN/GLOBULIN RATIO 1.1 (1.0-1.7); ALK PHOS 78 U/L (46-116); ALT (SGPT) 9 U/L (16-63); ANION GAP 4 (6-14); AST (SGOT) 12 U/L (15-37); BLOOD UREA NITROGEN 26 mg/dL (8-26); BUN/CREATININE RATIO 33 (6-20); CALCIUM 8.3 mg/dL (8.5-10.1); CARBON DIOXIDE 30 mmol/L (21-32); CHLORIDE 105 mmol/L (98-107); CREATININE 0.8 mg/dL (0.7-1.3); GFR 94.8; GLUCOSE 81 mg/dL (70-99); POTASSIUM 4.2 mmol/L (3.5-5.1); SODIUM 139 mmol/L (136-145); TOTAL BILIRUBIN 0.4 mg/dL (0.2-1.0); TOTAL PROTEIN 6.1 g/dL (6.4-8.2)
[2021-05-31 07:06] LABS: VAL ACID 60 mcg/mL (50-100)
--- NOTE | 2021-05-31 07:16 | PDOC ---
Exam Note: Daren Note: This note is a late entry for 05/29/2021 covers elements not covered in my initial note. Subjective: The patient was seen individually on 05/29/2021, discussed and reviewed the chart with Dora MATIAS. He slept 7-1/4 hours previous night. The patient continues to have some random outbursts, gets verbally volatile. He has had two falls in the past two days. As I met with him he was wanting something from the nursing staff and when this was not immediately attended to, he became verbally loud and quite abrasive, impulsive but then redirected. Review of Systems: Ambulation impaired, in wheelchair. I met with him in the hallway. No CV, , pulmonary, eye, ENT system symptoms on review. Mental Status Exam: The patient is oriented to himself and situation. Speech coherent, rapid, loud at times. Abstraction fair. Computation impaired. Language function intact. Attention span short. Mood and affect remains labile, anxious. Laboratory Data: Reviewed. Impression: Major depressive disorder, recurrent. Mild cognitive impairment versus major neurocognitive disorder, Alzheimer, vascular with delusion, depression, behavioral disturbance. Anxiety disorder unspecified. Impulse control disorder unspecified. Plan: No change from initial note. Assessment: Vital Signs/I&O: Vital Signs Date Time Temp Pulse Resp B/P (MAP) Pulse Ox O2 Delivery O2 Flow Rate FiO2 05/31/21 06:19 97.4 78 20 128/86 (100) 94 05/30/21 06:11 Room Air I & O 05/30/21 05/30/21 05/31/21 15:00 23:00 07:00 Intake Total 600 ml 480 ml Balance 600 ml 480 ml Labs: Laboratory Tests Test 05/31/21 06:17 White Blood Count 4.6 x10^3/uL (4.0-11.0) Red Blood Count 3.92 x10^6/uL (4.30-5.70) L Hemoglobin 12.4 g/dL (13.0-17.5) L Hematocrit 37.5 % (39.0-53.0) L Mean Corpuscular Volume 96 fL (79-100) Mean Corpuscular Hemoglobin 32 pg (25-35) Mean Corpuscular Hemoglobin Concent 33 g/dL (31-37) Red Cell Distribution Width 14.4 % (11.5-14.5) Platelet Count 123 x10^3/uL (140-400) L Neutrophils (%) (Auto) 66 % (31-73) Lymphocytes (%) (Auto) 22 % (24-48) L Monocytes (%) (Auto) 11 % (0-9) H Eosinophils (%) (Auto) 1 % (0-3) Basophils (%) (Auto) 1 % (0-3) Neutrophils # (Auto) 3.0 x10^3uL (1.8-7.7) Lymphocytes # (Auto) 1.0 x10^3/uL (1.0-4.8) Monocytes # (Auto) 0.5 x10^3/uL (0.0-1.1) Eosinophils # (Auto) 0.0 x10^3/uL (0.0-0.7) Basophils # (Auto) 0.0 x10^3/uL (0.0-0.2) Sodium Level 139 mmol/L (136-145) Potassium Level 4.2 mmol/L (3.5-5.1) Chloride Level 105 mmol/L (98-107) Carbon Dioxide Level 30 mmol/L (21-32) Anion Gap 4 (6-14) L Blood Urea Nitrogen 26 mg/dL (8-26) Creatinine 0.8 mg/dL (0.7-1.3) Estimated GFR (Cockcroft-Gault) 94.8 BUN/Creatinine Ratio 33 (6-20) H Glucose Level 81 mg/dL (70-99) Calcium Level 8.3 mg/dL (8.5-10.1) L Total Bilirubin 0.4 mg/dL (0.2-1.0) Aspartate Amino Transferase (AST) 12 U/L (15-37) L Alanine Aminotransferase (ALT) 9 U/L (16-63) L Alkaline Phosphatase 78 U/L (46-116) Total Protein 6.1 g/dL (6.4-8.2) L Albumin 3.2 g/dL (3.4-5.0) L Albumin/Globulin Ratio 1.1 (1.0-1.7) Valproic Acid Level 60 mcg/mL (50-100) Valproic Acid Last Dose Date 05/30/21 Valproic Acid Last Dose Time 1600 Current Medications: I have reviewed the current psychotropics carefully including drug interactions. Risk benefit ratio favors no change other than as noted in my dictated progress note. Diagnosis: Problems: (1) Impulse control disorder, unspecified (2) Major depressive disorder, severe (3) Anxiety disorder, unspecified (4) Dementia, vascular, with depression (5) Dementia, vascular, with delusions (6) Dementia in Alzheimer's disease with depression (7) Dementia in Alzheimer's disease with delusions (8) Dementia of the Alzheimer's type with early onset with behavioral di sturbance (9) Major neurocognitive disorder MICHAEL MCKEON MD May 31, 2021 07:16
--- NOTE | 2021-05-31 07:30 | PDOC ---
Exam Note: Daren Note: This note is a late entry for 05/30/2021 covers elements not covered in my initial note. Subjective: The patient was seen individually on 05/30/2021, discussed and reviewed the chart with Shaquille MATIAS. He slept 7-1/2 hours previous night. Overall, the patient remains somewhat anxious, labile. He has returned Covid-19 positive on screening test and has been moved to the opposite hallway for isolation and he has less irritable. Review of Systems: Ambulation impaired, in wheelchair. No CV, , pulmonary, eye, ENT system symptoms on review. Reliability varies. Mental Status Exam: The patient is oriented to himself and situation. Speech coherent, rapid at times. Abstraction fair. Computation impaired. Language function intact. Attention span short. Mood and affect remains labile, anxious. Laboratory Data: Reviewed. Impression: Major depressive disorder, recurrent. Mild cognitive impairment versus major neurocognitive disorder, Alzheimer, vascular with delusion, depression, behavioral disturbance. Anxiety disorder unspecified. Impulse control disorder unspecified. Plan: No change from initial note. Assessment: Vital Signs/I&O: Vital Signs Date Time Temp Pulse Resp B/P (MAP) Pulse Ox O2 Delivery O2 Flow Rate FiO2 05/31/21 06:19 97.4 78 20 128/86 (100) 94 05/30/21 06:11 Room Air I & O 05/30/21 05/30/21 05/31/21 15:00 23:00 07:00 Intake Total 600 ml 480 ml Balance 600 ml 480 ml Labs: Laboratory Tests Test 05/31/21 06:17 White Blood Count 4.6 x10^3/uL (4.0-11.0) Red Blood Count 3.92 x10^6/uL (4.30-5.70) L Hemoglobin 12.4 g/dL (13.0-17.5) L Hematocrit 37.5 % (39.0-53.0) L Mean Corpuscular Volume 96 fL (79-100) Mean Corpuscular Hemoglobin 32 pg (25-35) Mean Corpuscular Hemoglobin Concent 33 g/dL (31-37) Red Cell Distribution Width 14.4 % (11.5-14.5) Platelet Count 123 x10^3/uL (140-400) L Neutrophils (%) (Auto) 66 % (31-73) Lymphocytes (%) (Auto) 22 % (24-48) L Monocytes (%) (Auto) 11 % (0-9) H Eosinophils (%) (Auto) 1 % (0-3) Basophils (%) (Auto) 1 % (0-3) Neutrophils # (Auto) 3.0 x10^3uL (1.8-7.7) Lymphocytes # (Auto) 1.0 x10^3/uL (1.0-4.8) Monocytes # (Auto) 0.5 x10^3/uL (0.0-1.1) Eosinophils # (Auto) 0.0 x10^3/uL (0.0-0.7) Basophils # (Auto) 0.0 x10^3/uL (0.0-0.2) Sodium Level 139 mmol/L (136-145) Potassium Level 4.2 mmol/L (3.5-5.1) Chloride Level 105 mmol/L (98-107) Carbon Dioxide Level 30 mmol/L (21-32) Anion Gap 4 (6-14) L Blood Urea Nitrogen 26 mg/dL (8-26) Creatinine 0.8 mg/dL (0.7-1.3) Estimated GFR (Cockcroft-Gault) 94.8 BUN/Creatinine Ratio 33 (6-20) H Glucose Level 81 mg/dL (70-99) Calcium Level 8.3 mg/dL (8.5-10.1) L Total Bilirubin 0.4 mg/dL (0.2-1.0) Aspartate Amino Transferase (AST) 12 U/L (15-37) L Alanine Aminotransferase (ALT) 9 U/L (16-63) L Alkaline Phosphatase 78 U/L (46-116) Total Protein 6.1 g/dL (6.4-8.2) L Albumin 3.2 g/dL (3.4-5.0) L Albumin/Globulin Ratio 1.1 (1.0-1.7) Valproic Acid Level 60 mcg/mL (50-100) Valproic Acid Last Dose Date 05/30/21 Valproic Acid Last Dose Time 1600 Current Medications: I have reviewed the current psychotropics carefully including drug interactions. Risk benefit ratio favors no change other than as noted in my dictated progress note. Diagnosis: Problems: (1) Impulse control disorder, unspecified (2) Major depressive disorder, severe (3) Anxiety disorder, unspecified (4) Dementia, vascular, with depression (5) Dementia, vascular, with delusions (6) Dementia in Alzheimer's disease with depression (7) Dementia in Alzheimer's disease with delusions (8) Dementia of the Alzheimer's type with early onset with behavioral disturban ce (9) Major neurocognitive disorder (10) Mild cognitive impairment MICHAEL MCKEON MD May 31, 2021 07:30
[2021-05-31] MEDS: POTASSIUM CHLORIDE 20 MEQ TABLET.ER. PO SCH (09:00)
[2021-05-31] MEDS: DIVALPROEX 125 MG CAP.SPRINK PO SCH ×2 (09:00→16:37)
[2021-05-31] MEDS: ASCORBIC ACID 500 MG TABLET PO SCH (09:00)
[2021-05-31] MEDS: IPRATROPIUM BROMIDE 0.06% NASAL SPRAY 15ML BOTTLE NS SCH ×2 (09:00→20:31)
[2021-05-31] MEDS: SENNOSIDES 8.6 MG TABLET PO SCH (09:00)
[2021-05-31] MEDS: CHOLECALCIFEROL (VITAMIN D3) 1,000 UNIT TABLET PO SCH (09:00)
[2021-05-31] MEDS: POLYETHYLENE GLYCOL 3350 17 GM PACKET. PO SCH (09:00)
[2021-05-31] MEDS: LACTOBACILLUS RHAMNOSUS GG 1 CAPSULE. PO SCH ×2 (09:00→20:31)
[2021-05-31] MEDS: SERTRALINE 50 MG TABLET. PO SCH (09:01)
[2021-05-31] MEDS: QUEtiapine 25 MG TABLET. PO SCH ×4 (09:01→19:29)
[2021-05-31] MEDS: ASPIRIN CHEWABLE 81 MG TABLET. PO SCH (09:01)
[2021-05-31] MEDS: NICOTINE 7MG PATCH. TD SCH (09:01)
[2021-05-31] MEDS: CARBIDOPA/LEVODOPA 25/100MG TABLET PO SCH ×3 (09:01→20:31)
[2021-05-31 16:32] VITALS: BP 104/63
[2021-05-31] MEDS: ATORVASTATIN CALCIUM 10 MG TABLET. PO SCH (20:31)
--- NOTE | 2021-05-31 21:45 | PDOC ---
Exam Note: Daren Note: Please also refer to the separate dictated note~for this date of service dictated separately.~Patient seen individually. Discussed the patient with Nursing staff reviewed the chart.~Reviewed interim history and current functioning. Reviewed vital signs,~Labs/ Radiology~and current medications noted below. Continue current treatment with the changes noted in the dictated addendum note Assessment: Vital Signs/I&O: Vital Signs Date Time Temp Pulse Resp B/P (MAP) Pulse Ox O2 Delivery O2 Flow Rate FiO2 05/31/21 16:32 97.8 83 16 104/63 (77) 97 Room Air I & O 05/30/21 05/30/21 05/31/21 15:00 23:00 07:00 Intake Total 600 ml 480 ml Balance 600 ml 480 ml Labs: Laboratory Tests Test 05/31/21 06:17 05/31/21 08:16 White Blood Count 4.6 x10^3/uL (4.0-11.0) Red Blood Count 3.92 x10^6/uL (4.30-5.70) L Hemoglobin 12.4 g/dL (13.0-17.5) L Hematocrit 37.5 % (39.0-53.0) L Mean Corpuscular Volume 96 fL (79-100) Mean Corpuscular Hemoglobin 32 pg (25-35) Mean Corpuscular Hemoglobin Concent 33 g/dL (31-37) Red Cell Distribution Width 14.4 % (11.5-14.5) Platelet Count 123 x10^3/uL (140-400) L Neutrophils (%) (Auto) 66 % (31-73) Lymphocytes (%) (Auto) 22 % (24-48) L Monocytes (%) (Auto) 11 % (0-9) H Eosinophils (%) (Auto) 1 % (0-3) Basophils (%) (Auto) 1 % (0-3) Neutrophils # (Auto) 3.0 x10^3uL (1.8-7.7) Lymphocytes # (Auto) 1.0 x10^3/uL (1.0-4.8) Monocytes # (Auto) 0.5 x10^3/uL (0.0-1.1) Eosinophils # (Auto) 0.0 x10^3/uL (0.0-0.7) Basophils # (Auto) 0.0 x10^3/uL (0.0-0.2) Sodium Level 139 mmol/L (136-145) Potassium Level 4.2 mmol/L (3.5-5.1) Chloride Level 105 mmol/L (98-107) Carbon Dioxide Level 30 mmol/L (21-32) Anion Gap 4 (6-14) L Blood Urea Nitrogen 26 mg/dL (8-26) Creatinine 0.8 mg/dL (0.7-1.3) Estimated GFR (Cockcroft-Gault) 94.8 BUN/Creatinine Ratio 33 (6-20) H Glucose Level 81 mg/dL (70-99) Calcium Level 8.3 mg/dL (8.5-10.1) L Total Bilirubin 0.4 mg/dL (0.2-1.0) Aspartate Amino Transferase (AST) 12 U/L (15-37) L Alanine Aminotransferase (ALT) 9 U/L (16-63) L Alkaline Phosphatase 78 U/L (46-116) Total Protein 6.1 g/dL (6.4-8.2) L Albumin 3.2 g/dL (3.4-5.0) L Albumin/Globulin Ratio 1.1 (1.0-1.7) Valproic Acid Level 60 mcg/mL (50-100) Valproic Acid Last Dose Date 05/30/21 Valproic Acid Last Dose Time 1600 SARS-CoV-2 (PCR) Not detected (NOT DETECTD) Current Medications: Meds: Laboratory Tests Test 05/31/21 06:17 05/31/21 08:16 White Blood Count 4.6 x10^3/uL Red Blood Count 3.92 x10^6/uL Hemoglobin 12.4 g/dL Hematocrit 37.5 % Mean Corpuscular Volume 96 fL Mean Corpuscular Hemoglobin 32 pg Mean Corpuscular Hemoglobin Concent 33 g/dL Red Cell Distribution Width 14.4 % Platelet Count 123 x10^3/uL Neutrophils (%) (Auto) 66 % Lymphocytes (%) (Auto) 22 % Monocytes (%) (Auto) 11 % Eosinophils (%) (Auto) 1 % Basophils (%) (Auto) 1 % Neutrophils # (Auto) 3.0 x10^3uL Lymphocytes # (Auto) 1.0 x10^3/uL Monocytes # (Auto) 0.5 x10^3/uL Eosinophils # (Auto) 0.0 x10^3/uL Basophils # (Auto) 0.0 x10^3/uL Sodium Level 139 mmol/L Potassium Level 4.2 mmol/L Chloride Level 105 mmol/L Carbon Dioxide Level 30 mmol/L Anion Gap 4 Blood Urea Nitrogen 26 mg/dL Creatinine 0.8 mg/dL Estimated GFR (Cockcroft-Gault) 94.8 BUN/Creatinine Ratio 33 Glucose Level 81 mg/dL Calcium Level 8.3 mg/dL Total Bilirubin 0.4 mg/dL Aspartate Amino Transf (AST/SGOT) 12 U/L Alanine Aminotransferase (ALT/SGPT) 9 U/L Alkaline Phosphatase 78 U/L Total Protein 6.1 g/dL Albumin 3.2 g/dL Albumin/Globulin Ratio 1.1 Valproic Acid (Depakene) Level 60 mcg/mL Valproic Acid Last Dose Date 05/30/21 Valproic Acid Last Dose Time 1600 Coronavirus (COVID-19)(PCR) Not detected Current Medications Medications (Trade) Dose Ordered Sig/Daisy Route PRN Reason Start Time Stop Time Status Last Admin Dose Admin Acetaminophen (Tylenol) 650 mg PRN Q6HRS PRN PO MILD PAIN / TEMP > 100.3'F 05/11/21 16:15 Multi-Ingredient Ointment (Analgesic [place]) 1 eva PRN QID PRN TP MUSCLE PAIN 05/11/21 16:15 Al Hydroxide/Mg Hydroxide (Mylanta Plus Xs) 15 ml PRN AFTMEALHC PRN PO DYSPEPSIA 05/11/21 16:15 Magnesium Hydroxide (Milk Of Magnesia) 2,400 mg PRN QHS PRN PO CONSTIPATION 05/11/21 16:15 Nicotine (Nicoderm Cq 14mg Patch) 1 patch DAILY TD 05/12/21 09:00 05/30/21 17:27 DC 05/29/21 08:46 Ascorbic Acid (Vitamin C) 500 mg DAILY PO 05/12/21 09:00 05/31/21 09:00 Aspirin (Aspirin Chewable) 81 mg DAILY PO 05/12/21 09:00 05/31/21 09:01 Nicotine (Nicoderm Cq 14mg Patch) 1 patch DAILY TD 05/12/21 09:00 UNV Potassium Chloride (Klor-Con) 40 meq DAILY PO 05/12/21 09:00 05/31/21 09:00 Sennosides (Senna) 8.6 mg DAILY PO 05/12/21 09:00 05/31/21 09:00 Sertraline HCl (Zoloft) 125 mg DAILY PO 05/12/21 09:00 05/18/21 18:20 DC 05/18/21 08:59 Vitamin D (Vitamin D3) 1,000 unit DAILY PO 05/12/21 09:00 05/31/21 09:00 Cyanocobalamin (Vitamin B-12) 1,000 mcg [id number] PO 05/12/21 09:00 05/12/21 08:19 Polyethylene Glycol (miraLAX) 17 gm DAILY PO 05/12/21 09:00 05/31/21 09:00 Atorvastatin Calcium (Lipitor) 10 mg QHS PO 05/12/21 21:00 05/31/21 20:31 Quetiapine Fumarate (SEROquel) 25 mg PRN BID PRN PO AGITATION 05/12/21 07:15 05/19/21 19:14 DC 05/19/21 09:35 Divalproex Sodium (Depakote Sprinkles) 125 mg [id number] PO 05/12/21 09:00 05/12/21 16:01 DC 05/12/21 08:19 Ipratropium [place] (Atrovent Nasal) 1 spray BID NS 05/12/21 09:00 05/31/21 20:31 Divalproex Sodium (Depakote Sprinkles) 250 mg [id number] PO 05/12/21 16:00 05/16/21 18:09 DC 05/16/21 15:00 Cefdinir (Omnicef) 300 mg BID PO 05/14/21 21:00 05/20/21 22:00 DC 05/20/21 21:00 Lactobacillus Rhamnosus (Culturelle) 1 cap BID PO 05/14/21 21:00 05/31/21 20:31 Carbidopa/Levodopa (Sinemet 25/100) 1 tab TID PO 05/15/21 21:00 05/31/21 20:31 Divalproex Sodium (Depakote Sprinkles) 375 mg [id number] PO 05/17/21 09:00 05/27/21 19:14 DC 05/27/21 14:52 Sertraline HCl (Zoloft) 150 mg DAILY PO 05/19/21 09:00 05/31/21 09:01 Quetiapine Fumarate (SEROquel) 25 mg 0900,1700 PO 05/20/21 09:00 05/23/21 18:17 DC 05/23/21 17:00 Olanzapine (ZyPREXA ZYDIS) 2.5 mg PRN Q2HR PRN PO PSYCHOSIS 05/20/21 10:00 05/27/21 17:42 Quetiapine Fumarate (SEROquel) 25 mg 0900,1300,1700 PO 05/24/21 09:00 05/25/21 11:57 DC 05/25/21 09:00 Quetiapine Fumarate (SEROquel) 25 mg 0900,1200,1500,1800 PO 05/25/21 12:00 05/31/21 16:37 Divalproex Sodium (Depakote Sprinkles) 500 mg [id number] PO 05/28/21 09:00 05/31/21 16:37 Nicotine (Nicoderm Cq 7mg Patch) 1 patch DAILY TD 05/31/21 09:00 05/31/21 09:01 Current Medications Medications (Trade) Dose Ordered Sig/Daisy Route PRN Reason Start Time Stop Time Status Last Admin Dose Admin Nicotine (Nicoderm Cq 7mg Patch) 1 patch DAILY TD 05/31/21 09:00 05/31/21 09:01 I have reviewed the current psychotropics carefully including drug interactions. Risk benefit ratio favors no change other than as noted in my dictated progress note. Diagnosis: Problems: (1) Impulse control disorder, unspecified (2) Major depressive disorder, severe (3) Anxiety disorder, unspecified (4) Dementia, vascular, with depression (5) Dementia, vascular, with delusions (6) Dementia in Alzheimer's disease with depression (7) Dementia in Alzheimer's disease with delusions (8) Dementia of the Alzheimer's type with early onset with behavioral disturbance (9) Major neurocognitive disorder (10) Mild cognitive impairment MICHAEL MCKEON MD May 31, 2021 21:45
[2021-06-01 06:23] VITALS: BP 122/70
[2021-06-01] MEDS: POLYETHYLENE GLYCOL 3350 17 GM PACKET. PO SCH (08:59)
[2021-06-01] MEDS: NICOTINE 7MG PATCH. TD SCH (08:59)
[2021-06-01] MEDS: ASPIRIN CHEWABLE 81 MG TABLET. PO SCH (08:59)
[2021-06-01] MEDS: ASCORBIC ACID 500 MG TABLET PO SCH (08:59)
[2021-06-01] MEDS: QUEtiapine 25 MG TABLET. PO SCH ×4 (08:59→17:38)
[2021-06-01] MEDS: SENNOSIDES 8.6 MG TABLET PO SCH (09:00)
[2021-06-01] MEDS: CHOLECALCIFEROL (VITAMIN D3) 1,000 UNIT TABLET PO SCH (09:00)
[2021-06-01] MEDS: LACTOBACILLUS RHAMNOSUS GG 1 CAPSULE. PO SCH ×2 (09:00→20:10)
[2021-06-01] MEDS: DIVALPROEX 125 MG CAP.SPRINK PO SCH ×2 (09:00→17:38)
[2021-06-01] MEDS: CARBIDOPA/LEVODOPA 25/100MG TABLET PO SCH ×3 (09:00→20:10)
[2021-06-01] MEDS: POTASSIUM CHLORIDE 20 MEQ TABLET.ER. PO SCH (09:01)
[2021-06-01] MEDS: SERTRALINE 50 MG TABLET. PO SCH (09:01)
[2021-06-01] MEDS: IPRATROPIUM BROMIDE 0.06% NASAL SPRAY 15ML BOTTLE NS SCH ×2 (09:01→20:11)
[2021-06-01 15:39] VITALS: BP 105/63
[2021-06-01] MEDS: ATORVASTATIN CALCIUM 10 MG TABLET. PO SCH (20:10)
--- NOTE | 2021-06-01 21:43 | PDOC ---
Exam Note: Daren Note: Please also refer to the separate dictated note~for this date of service dictated separately.~Patient seen individually. Discussed the patient with Nursing staff reviewed the chart.~Reviewed interim history and current functioning. Reviewed vital signs,~Labs/ Radiology~and current medications noted below. Continue current treatment with the changes noted in the dictated addendum note Assessment: Vital Signs/I&O: Vital Signs Date Time Temp Pulse Resp B/P (MAP) Pulse Ox O2 Delivery O2 Flow Rate FiO2 06/01/21 15:39 97.7 75 20 105/63 (77) 97 05/31/21 16:32 Room Air I & O 05/31/21 05/31/21 06/01/21 15:00 23:00 07:00 Intake Total 840 ml 480 ml Balance 840 ml 480 ml Current Medications: Meds: Current Medications Medications (Trade) Dose Ordered Sig/Daisy Route PRN Reason Start Time Stop Time Status Last Admin Dose Admin Acetaminophen (Tylenol) 650 mg PRN Q6HRS PRN PO MILD PAIN / TEMP > 100.3'F 05/11/21 16:15 Multi-Ingredient Ointment (Analgesic [place]) 1 eva PRN QID PRN TP MUSCLE PAIN 05/11/21 16:15 Al Hydroxide/Mg Hydroxide (Mylanta Plus Xs) 15 ml PRN AFTMEALHC PRN PO DYSPEPSIA 05/11/21 16:15 Magnesium Hydroxide (Milk Of Magnesia) 2,400 mg PRN QHS PRN PO CONSTIPATION 05/11/21 16:15 Nicotine (Nicoderm Cq 14mg Patch) 1 patch DAILY TD 05/12/21 09:00 05/30/21 17:27 DC 05/29/21 08:46 Ascorbic Acid (Vitamin C) 500 mg DAILY PO 05/12/21 09:00 06/01/21 08:59 Aspirin (Aspirin Chewable) 81 mg DAILY PO 05/12/21 09:00 06/01/21 08:59 Nicotine (Nicoderm Cq 14mg Patch) 1 patch DAILY TD 05/12/21 09:00 UNV Potassium Chloride (Klor-Con) 40 meq DAILY PO 05/12/21 09:00 06/01/21 09:01 Sennosides (Senna) 8.6 mg DAILY PO 05/12/21 09:00 06/01/21 09:00 Sertraline HCl (Zoloft) 125 mg DAILY PO 05/12/21 09:00 05/18/21 18:20 DC 05/18/21 08:59 Vitamin D (Vitamin D3) 1,000 unit DAILY PO 05/12/21 09:00 06/01/21 09:00 Cyanocobalamin (Vitamin B-12) 1,000 mcg [id number] PO 05/12/21 09:00 05/12/21 08:19 Polyethylene Glycol (miraLAX) 17 gm DAILY PO 05/12/21 09:00 06/01/21 08:59 Atorvastatin Calcium (Lipitor) 10 mg QHS PO 05/12/21 21:00 06/01/21 20:10 Quetiapine Fumarate (SEROquel) 25 mg PRN BID PRN PO AGITATION 05/12/21 07:15 05/19/21 19:14 DC 05/19/21 09:35 Divalproex Sodium (Depakote Sprinkles) 125 mg [id number] PO 05/12/21 09:00 05/12/21 16:01 DC 05/12/21 08:19 Ipratropium [place] (Atrovent Nasal) 1 spray BID NS 05/12/21 09:00 06/01/21 20:11 Divalproex Sodium (Depakote Sprinkles) 250 mg [id number] PO 05/12/21 16:00 05/16/21 18:09 DC 05/16/21 15:00 Cefdinir (Omnicef) 300 mg BID PO 05/14/21 21:00 05/20/21 22:00 DC 05/20/21 21:00 Lactobacillus Rhamnosus (Culturelle) 1 cap BID PO 05/14/21 21:00 06/01/21 20:10 Carbidopa/Levodopa (Sinemet 25/100) 1 tab TID PO 05/15/21 21:00 06/01/21 20:10 Divalproex Sodium (Depakote Sprinkles) 375 mg [id number] PO 05/17/21 09:00 05/27/21 19:14 DC 05/27/21 14:52 Sertraline HCl (Zoloft) 150 mg DAILY PO 05/19/21 09:00 06/01/21 11:53 DC 06/01/21 09:01 Quetiapine Fumarate (SEROquel) 25 mg 0900,1700 PO 05/20/21 09:00 05/23/21 18:17 DC 05/23/21 17:00 Olanzapine (ZyPREXA ZYDIS) 2.5 mg PRN Q2HR PRN PO PSYCHOSIS 05/20/21 10:00 06/01/21 20:10 Quetiapine Fumarate (SEROquel) 25 mg 0900,1300,1700 PO 05/24/21 09:00 05/25/21 11:57 DC 05/25/21 09:00 Quetiapine Fumarate (SEROquel) 25 mg 0900,1200,1500,1800 PO 05/25/21 12:00 06/01/21 17:38 Divalproex Sodium (Depakote Sprinkles) 500 mg BID94 PO 05/28/21 09:00 06/01/21 17:38 Nicotine (Nicoderm Cq 7mg Patch) 1 patch DAILY TD 05/31/21 09:00 06/01/21 08:59 Sertraline HCl (Zoloft) 175 mg DAILY PO 06/02/21 09:00 I have reviewed the current psychotropics carefully including drug interactions. Risk benefit ratio favors no change other than as noted in my dictated progress note. Diagnosis: Problems: (1) Impulse control disorder, unspecified (2) Major depressive disorder, severe (3) Anxiety disorder, unspecified (4) Dementia, vascular, with depression (5) Dementia, vascular, with delusions (6) Dementia in Alzheimer's disease with depression (7) Dementia in Alzheimer's disease with delusions (8) Dementia of the Alzheimer's type with early onset with behavioral disturbance (9) Major neurocognitive disorder (10) Mild cognitive impairment MICHAEL MCKEON MD Jun 01, 2021 21:43
[2021-06-02 06:47] VITALS: BP 118/71
[2021-06-02] MEDS: IPRATROPIUM BROMIDE 0.06% NASAL SPRAY 15ML BOTTLE NS SCH ×2 (08:51→20:21)
[2021-06-02] MEDS: POLYETHYLENE GLYCOL 3350 17 GM PACKET. PO SCH (08:51)
[2021-06-02] MEDS: NICOTINE 7MG PATCH. TD SCH (08:52)
[2021-06-02] MEDS: ASCORBIC ACID 500 MG TABLET PO SCH (08:52)
[2021-06-02] MEDS: ASPIRIN CHEWABLE 81 MG TABLET. PO SCH (08:52)
[2021-06-02] MEDS: SENNOSIDES 8.6 MG TABLET PO SCH (08:52)
[2021-06-02] MEDS: SERTRALINE 50 MG TABLET. PO SCH (08:52)
[2021-06-02] MEDS: CHOLECALCIFEROL (VITAMIN D3) 1,000 UNIT TABLET PO SCH (08:52)
[2021-06-02] MEDS: CARBIDOPA/LEVODOPA 25/100MG TABLET PO SCH ×3 (08:52→20:21)
[2021-06-02] MEDS: POTASSIUM CHLORIDE 20 MEQ TABLET.ER. PO SCH (08:52)
[2021-06-02] MEDS: QUEtiapine 25 MG TABLET. PO SCH ×4 (08:52→16:50)
[2021-06-02] MEDS: DIVALPROEX 125 MG CAP.SPRINK PO SCH ×2 (08:52→16:50)
[2021-06-02] MEDS: LACTOBACILLUS RHAMNOSUS GG 1 CAPSULE. PO SCH ×2 (08:52→20:21)
[2021-06-02 15:43] VITALS: BP 157/84
[2021-06-02] MEDS: ATORVASTATIN CALCIUM 10 MG TABLET. PO SCH (20:21)
--- NOTE | 2021-06-02 21:32 | PDOC ---
Exam Note: Daren Note: This note is a late entry for 05/31/2021 covers elements not covered in my initial note. Subjective: The patient was seen individually on 05/31/2021, discussed and reviewed the chart with Dora MATIAS. He slept 5-3/4 hours previous night. The patients repeat Covid-19 PCR test is negative. Review of Systems: Ambulation impaired, in wheelchair. No CV, , pulmonary, eye, ENT system symptoms on review. Mental Status Exam: The patient is oriented to himself and situation. Speech has some latency, coherent. He complains of being hard of hearing. Abstraction fair. Computation impaired. Language function intact. Mood and affect labile, anxious. No suicidal or homicidal ideation. Laboratory Data: Reviewed. Impression: Major depressive disorder, recurrent. Mild cognitive impairment versus major neurocognitive disorder, Alzheimer, vascular with delusion, depression, behavioral disturbance. Anxiety disorder unspecified. Impulse co ntrol disorder unspecified. Plan: No change from initial note. Assessment: Vital Signs/I&O: Vital Signs Date Time Temp Pulse Resp B/P (MAP) Pulse Ox O2 Delivery O2 Flow Rate FiO2 06/02/21 15:43 98.4 71 20 157/84 (108) 96 05/31/21 16:32 Room Air I & O 06/01/21 06/01/21 06/02/21 15:00 23:00 07:00 Intake Total 700 ml 360 ml Balance 700 ml 360 ml Current Medications: Meds: Current Medications Medications (Trade) Dose Ordered Sig/Daisy Route PRN Reason Start Time Stop Time Status Last Admin Dose Admin Sertraline HCl (Zoloft) 175 mg DAILY PO 06/02/21 09:00 06/02/21 08:52 I have reviewed the current psychotropics carefully including drug interactions. Risk benefit ratio favors no change other than as noted in my dictated progress note. Diagnosis: Problems: (1) Impulse control disorder, unspecified (2) Major depressive disorder, severe (3) Anxiety disorder, unspecified (4) Dementia, vascular, with depression (5) Dementia, vascular, with delusions (6) Dementia in Alzheimer's disease with depression (7) Dementia in Alzheimer's disease with delusions (8) Dementia of the Alzheimer's type with early onset with behavioral disturbance (9) Major neurocognitive disorder (10) Major depressive disorder, recurrent episode (11) Mild cognitive impairment LINDA,MAN M MD Jun 02, 2021 21:32
--- NOTE | 2021-06-02 21:47 | PDOC ---
Exam Note: Daren Note: This note is a late entry for 06/01/2021 covers elements not covered in my initial note. Subjective: The patient was reviewed on telehealth rounds at treatment team meeting in the morning on 06/01/2021 with Maria Esther Piña (vp [employer] and crm) and Corinne MATIAS, discussed and reviewed the chart. He slept 7-3/4 hours previous night. Appetite 75%. He is compliant with medications. Referrals are being sent for placement. The patient was also seen in the evening on telehealth rounds. Review of Systems: Ambulation impaired, in wheelchair. No CV, , pulmonary, eye system symptoms on review. Mental Status Exam: The patient is oriented to himself and situation. Speech has some latency, coherent. He is also somewhat hard of hearing. Abstraction fair. Computation impaired. Language function intact. Attention span short. Mood and affect remains somewhat labile, anxious, less irritable and depressed. No suicidal or homicidal ideation. Laboratory Data: Reviewed. 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 Anxiety disorder unspecified. Impulse control disorder unspecified. Plan: I have reviewed labs on 05/31. Valproic acid level was therapeutic at 60. We will continue Depakote unchanged at current dosage. Increase Zoloft from 150 mg a day to 175 mg a day. Maintain rest of the psychotropics unchanged. Assessment: Vital Signs/I&O: Vital Signs Date Time Temp Pulse Resp B/P (MAP) Pulse Ox O2 Delivery O2 Flow Rate FiO2 06/02/21 15:43 98.4 71 20 157/84 (108) 96 05/31/21 16:32 Room Air l I & O 06/01/21 06/01/21 06/02/21 15:00 23:00 07:00 Intake Total 700 ml 360 ml Balance 700 ml 360 ml Current Medications: Meds: Current Medications Medications (Trade) Dose Ordered Sig/Daisy Route PRN Reason Start Time Stop Time Status Last Admin Dose Admin Sertraline HCl (Zoloft) 175 mg DAILY PO 06/02/21 09:00 06/02/21 08:52 I have reviewed the current psychotropics carefully including drug interactions. Risk benefit ratio favors no change other than as noted in my dictated progress note. Diagnosis: Problems: (1) Impulse control disorder, unspecified (2) Major depressive disorder, severe (3) Anxiety disorder, unspecified (4) Dementia, vascular, with depression (5) Dementia, vascular, with delusions (6) Dementia in Alzheimer's disease with depression (7) Dementia in Alzheimer's disease with delusions (8) Dementia of the Alzheimer's type with early onset with behavioral disturbance (9) Major neurocognitive disorder (10) Mild cognitive impairment MICHAEL MCKEON MD Jun 02, 2021 21:47
--- NOTE | 2021-06-02 21:56 | PDOC ---
Exam Note: Daren Note: Please also refer to the separate dictated note~for this date of service dictated separately.~Patient seen individually. Discussed the patient with Nursing staff reviewed the chart.~Reviewed interim history and current functioning. Reviewed vital signs,~Labs/ Radiology~and current medications noted below. Continue current treatment with the changes noted in the dictated addendum note Assessment: Vital Signs/I&O: Vital Signs Date Time Temp Pulse Resp B/P (MAP) Pulse Ox O2 Delivery O2 Flow Rate FiO2 06/02/21 15:43 98.4 71 20 157/84 (108) 96 05/31/21 16:32 Room Air I & O 06/01/21 06/01/21 06/02/21 15:00 23:00 07:00 Intake Total 700 ml 360 ml Balance 700 ml 360 ml Current Medications: Meds: Current Medications Medications (Trade) Dose Ordered Sig/Daisy Route PRN Reason Start Time Stop Time Status Last Admin Dose Admin Acetaminophen (Tylenol) 650 mg PRN Q6HRS PRN PO MILD PAIN / TEMP > 100.3'F 05/11/21 16:15 Multi-Ingredient Ointment (Analgesic [place]) 1 eva PRN QID PRN TP MUSCLE PAIN 05/11/21 16:15 Al Hydroxide/Mg Hydroxide (Mylanta Plus Xs) 15 ml PRN AFTMEALHC PRN PO DYSPEPSIA 05/11/21 16:15 Magnesium Hydroxide (Milk Of Magnesia) 2,400 mg PRN QHS PRN PO CONSTIPATION 05/11/21 16:15 Nicotine (Nicoderm Cq 14mg Patch) 1 patch DAILY TD 05/12/21 09:00 05/30/21 17:27 DC 05/29/21 08:46 Ascorbic Acid (Vitamin C) 500 mg DAILY PO 05/12/21 09:00 06/02/21 08:52 Aspirin (Aspirin Chewable) 81 mg DAILY PO 05/12/21 09:00 06/02/21 08:52 Nicotine (Nicoderm Cq 14mg Patch) 1 patch DAILY TD 05/12/21 09:00 UNV Potassium Chloride (Klor-Con) 40 meq DAILY PO 05/12/21 09:00 06/02/21 08:52 Sennosides (Senna) 8.6 mg DAILY PO 05/12/21 09:00 06/02/21 08:52 Sertraline HCl (Zoloft) 125 mg DAILY PO 05/12/21 09:00 05/18/21 18:20 DC 05/18/21 08:59 Vitamin D (Vitamin D3) 1,000 unit DAILY PO 05/12/21 09:00 06/02/21 08:52 Cyanocobalamin (Vitamin B-12) 1,000 mcg [id number] PO 05/12/21 09:00 05/12/21 08:19 Polyethylene Glycol (miraLAX) 17 gm DAILY PO 05/12/21 09:00 06/02/21 08:51 Atorvastatin Calcium (Lipitor) 10 mg QHS PO 05/12/21 21:00 06/02/21 20:21 Quetiapine Fumarate (SEROquel) 25 mg PRN BID PRN PO AGITATION 05/12/21 07:15 05/19/21 19:14 DC 05/19/21 09:35 Divalproex Sodium (Depakote Sprinkles) 125 mg [id number] PO 05/12/21 09:00 05/12/21 16:01 DC 05/12/21 08:19 Ipratropium [place] (Atrovent Nasal) 1 spray BID NS 05/12/21 09:00 06/02/21 20:21 Divalproex Sodium (Depakote Sprinkles) 250 mg [id number] PO 05/12/21 16:00 05/16/21 18:09 DC 05/16/21 15:00 Cefdinir (Omnicef) 300 mg BID PO 05/14/21 21:00 05/20/21 22:00 DC 05/20/21 21:00 Lactobacillus Rhamnosus (Culturelle) 1 cap BID PO 05/14/21 21:00 06/02/21 20:21 Carbidopa/Levodopa (Sinemet 25/100) 1 tab TID PO 05/15/21 21:00 06/02/21 20:21 Divalproex Sodium (Depakote Sprinkles) 375 mg [id number] PO 05/17/21 09:00 05/27/21 19:14 DC 05/27/21 14:52 Sertraline HCl (Zoloft) 150 mg DAILY PO 05/19/21 09:00 06/01/21 11:53 DC 06/01/21 09:01 Quetiapine Fumarate (SEROquel) 25 mg 0900,1700 PO 05/20/21 09:00 05/23/21 18:17 DC 05/23/21 17:00 Olanzapine (ZyPREXA ZYDIS) 2.5 mg PRN Q2HR PRN PO PSYCHOSIS 05/20/21 10:00 06/01/21 20:10 Quetiapine Fumarate (SEROquel) 25 mg 0900,1300,1700 PO 05/24/21 09:00 05/25/21 11:57 DC 05/25/21 09:00 Quetiapine Fumarate (SEROquel) 25 mg 0900,1200,1500,1800 PO 05/25/21 12:00 06/02/21 16:50 Divalproex Sodium (Depakote Sprinkles) 500 mg [id number] PO 05/28/21 09:00 06/02/21 16:50 Nicotine (Nicoderm Cq 7mg Patch) 1 patch DAILY TD 05/31/21 09:00 06/02/21 08:52 Sertraline HCl (Zoloft) 175 mg DAILY PO 06/02/21 09:00 06/02/21 08:52 Current Medications Medications (Trade) Dose Ordered Sig/Daisy Route PRN Reason Start Time Stop Time Status Last Admin Dose Admin Sertraline HCl (Zoloft) 175 mg DAILY PO 06/02/21 09:00 06/02/21 08:52 I have reviewed the current psychotropics carefully including drug interactions. Risk benefit ratio favors no change other than as noted in my dictated progress note. Diagnosis: Problems: (1) Impulse control disorder, unspecified (2) Major depressive disorder, severe (3) Anxiety disorder, unspecified (4) Dementia, vascular, with depression (5) Dementia, vascular, with delusions (6) Dementia in Alzheimer's disease with depression (7) Dementia in Alzheimer's disease with delusions (8) Dementia of the Alzheimer's type with early onset with behavioral disturban ce (9) Major neurocognitive disorder (10) Mild cognitive impairment MICHAEL MCKEON MD Jun 02, 2021 21:56
[2021-06-03 06:05] VITALS: BP 129/77
[2021-06-03] MEDS: POLYETHYLENE GLYCOL 3350 17 GM PACKET. PO SCH (08:04)
[2021-06-03] MEDS: NICOTINE 7MG PATCH. TD SCH (08:06)
[2021-06-03] MEDS: IPRATROPIUM BROMIDE 0.06% NASAL SPRAY 15ML BOTTLE NS SCH ×2 (08:06→19:27)
[2021-06-03] MEDS: DIVALPROEX 125 MG CAP.SPRINK PO SCH ×2 (08:07→15:12)
[2021-06-03] MEDS: ASPIRIN CHEWABLE 81 MG TABLET. PO SCH (08:07)
[2021-06-03] MEDS: SENNOSIDES 8.6 MG TABLET PO SCH (08:07)
[2021-06-03] MEDS: CARBIDOPA/LEVODOPA 25/100MG TABLET PO SCH ×3 (08:07→19:27)
[2021-06-03] MEDS: LACTOBACILLUS RHAMNOSUS GG 1 CAPSULE. PO SCH ×2 (08:07→19:28)
[2021-06-03] MEDS: SERTRALINE 50 MG TABLET. PO SCH (08:07)
[2021-06-03] MEDS: CHOLECALCIFEROL (VITAMIN D3) 1,000 UNIT TABLET PO SCH (08:08)
[2021-06-03] MEDS: ASCORBIC ACID 500 MG TABLET PO SCH (08:08)
[2021-06-03] MEDS: QUEtiapine 25 MG TABLET. PO SCH ×4 (08:08→18:00)
[2021-06-03] MEDS: POTASSIUM CHLORIDE 20 MEQ TABLET.ER. PO SCH (08:08)
[2021-06-03 16:02] VITALS: BP 140/84
[2021-06-03] MEDS: ATORVASTATIN CALCIUM 10 MG TABLET. PO SCH (19:27)
--- NOTE | 2021-06-03 21:35 | PDOC ---
Exam Note: Daren Note: Please also refer to the separate dictated note~for this date of service dictated separately.~Patient seen individually. Discussed the patient with Nursing staff reviewed the chart.~Reviewed interim history and current functioning. Reviewed vital signs,~Labs/ Radiology~and current medications noted below. Continue current treatment with the changes noted in the dictated addendum note Assessment: Vital Signs/I&O: Vital Signs Date Time Temp Pulse Resp B/P (MAP) Pulse Ox O2 Delivery O2 Flow Rate FiO2 06/03/21 16:02 97.1 100 20 140/84 (102) 98 06/03/21 06:05 Room Air I & O 06/02/21 06/02/21 06/03/21 15:00 23:00 07:00 Intake Total 960 ml 720 ml Balance 960 ml 720 ml Current Medications: Meds: Current Medications Medications (Trade) Dose Ordered Sig/Daisy Route PRN Reason Start Time Stop Time Status Last Admin Dose Admin Acetaminophen (Tylenol) 650 mg PRN Q6HRS PRN PO MILD PAIN / TEMP > 100.3'F 05/11/21 16:15 Multi-Ingredient Ointment (Analgesic [place]) 1 eva PRN QID PRN TP MUSCLE PAIN 05/11/21 16:15 Al Hydroxide/Mg Hydroxide (Mylanta Plus Xs) 15 ml PRN AFTMEALHC PRN PO DYSPEPSIA 05/11/21 16:15 Magnesium Hydroxide (Milk Of Magnesia) 2,400 mg PRN QHS PRN PO CONSTIPATION 05/11/21 16:15 Nicotine (Nicoderm Cq 14mg Patch) 1 patch DAILY TD 05/12/21 09:00 05/30/21 17:27 DC 05/29/21 08:46 Ascorbic Acid (Vitamin C) 500 mg DAILY PO 05/12/21 09:00 06/03/21 08:08 Aspirin (Aspirin Chewable) 81 mg DAILY PO 05/12/21 09:00 06/03/21 08:07 Nicotine (Nicoderm Cq 14mg Patch) 1 patch DAILY TD 05/12/21 09:00 UNV Potassium Chloride (Klor-Con) 40 meq DAILY PO 05/12/21 09:00 06/03/21 08:08 Sennosides (Senna) 8.6 mg DAILY PO 05/12/21 09:00 06/03/21 08:07 Sertraline HCl (Zoloft) 125 mg DAILY PO 05/12/21 09:00 05/18/21 18:20 DC 05/18/21 08:59 Vitamin D (Vitamin D3) 1,000 unit DAILY PO 05/12/21 09:00 06/03/21 08:08 Cyanocobalamin (Vitamin B-12) 1,000 mcg [id number] PO 05/12/21 09:00 05/12/21 08:19 Polyethylene Glycol (miraLAX) 17 gm DAILY PO 05/12/21 09:00 06/03/21 08:04 Atorvastatin Calcium (Lipitor) 10 mg QHS PO 05/12/21 21:00 06/03/21 19:27 Quetiapine Fumarate (SEROquel) 25 mg PRN BID PRN PO AGITATION 05/12/21 07:15 05/19/21 19:14 DC 05/19/21 09:35 Divalproex Sodium (Depakote Sprinkles) 125 mg [id number] PO 05/12/21 09:00 05/12/21 16:01 DC 05/12/21 08:19 Ipratropium [place] (Atrovent Nasal) 1 spray BID NS 05/12/21 09:00 06/03/21 19:27 Divalproex Sodium (Depakote Sprinkles) 250 mg [id number] PO 05/12/21 16:00 05/16/21 18:09 DC 05/16/21 15:00 Cefdinir (Omnicef) 300 mg BID PO 05/14/21 21:00 05/20/21 22:00 DC 05/20/21 21:00 Lactobacillus Rhamnosus (Culturelle) 1 cap BID PO 05/14/21 21:00 06/03/21 19:28 Carbidopa/Levodopa (Sinemet 25/100) 1 tab TID PO 05/15/21 21:00 06/03/21 19:27 Divalproex Sodium (Depakote Sprinkles) 375 mg [id number] PO 05/17/21 09:00 05/27/21 19:14 DC 05/27/21 14:52 Sertraline HCl (Zoloft) 150 mg DAILY PO 05/19/21 09:00 06/01/21 11:53 DC 06/01/21 09:01 Quetiapine Fumarate (SEROquel) 25 mg 0900,1700 PO 05/20/21 09:00 05/23/21 18:17 DC 05/23/21 17:00 Olanzapine (ZyPREXA ZYDIS) 2.5 mg PRN Q2HR PRN PO PSYCHOSIS 05/20/21 10:00 06/01/21 20:10 Quetiapine Fumarate (SEROquel) 25 mg 0900,1300,1700 PO 05/24/21 09:00 05/25/21 11:57 DC 05/25/21 09:00 Quetiapine Fumarate (SEROquel) 25 mg 0900,1200,1500,1800 PO 05/25/21 12:00 06/03/21 18:00 Divalproex Sodium (Depakote Sprinkles) 500 mg [id number] PO 05/28/21 09:00 06/03/21 15:12 Nicotine (Nicoderm Cq 7mg Patch) 1 patch DAILY TD 05/31/21 09:00 06/03/21 08:06 Sertraline HCl (Zoloft) 175 mg DAILY PO 06/02/21 09:00 06/03/21 08:07 I have reviewed the current psychotropics carefully including drug interactions. Risk benefit ratio favors no change other than as noted in my dictated progress note. Diagnosis: Problems: (1) Impulse control disorder, unspecified (2) Anxiety disorder, unspecified (3) Dementia, vascular, with depression (4) Dementia, vascular, with delusions (5) Dementia in Alzheimer's disease with depression (6) Dementia in Alzheimer's disease with delusions (7) Dementia of the Alzheimer's type with early onset with behavioral disturbance (8) Major neurocognitive disorder (9) Major depressive disorder, recurrent episode (10) Mild cognitive impairment MICHAEL MCKEON MD Jun 03, 2021 21:35
[2021-06-04 06:10] VITALS: BP 129/71
[2021-06-04] MEDS: SENNOSIDES 8.6 MG TABLET PO SCH (08:37)
[2021-06-04] MEDS: CHOLECALCIFEROL (VITAMIN D3) 1,000 UNIT TABLET PO SCH (08:37)
[2021-06-04] MEDS: IPRATROPIUM BROMIDE 0.06% NASAL SPRAY 15ML BOTTLE NS SCH ×2 (08:37→20:09)
[2021-06-04] MEDS: POTASSIUM CHLORIDE 20 MEQ TABLET.ER. PO SCH (08:37)
[2021-06-04] MEDS: QUEtiapine 25 MG TABLET. PO SCH ×4 (08:38→17:39)
[2021-06-04] MEDS: LACTOBACILLUS RHAMNOSUS GG 1 CAPSULE. PO SCH ×2 (08:38→20:09)
[2021-06-04] MEDS: ASPIRIN CHEWABLE 81 MG TABLET. PO SCH (08:38)
[2021-06-04] MEDS: DIVALPROEX 125 MG CAP.SPRINK PO SCH ×2 (08:38→16:03)
[2021-06-04] MEDS: NICOTINE 7MG PATCH. TD SCH (08:38)
[2021-06-04] MEDS: SERTRALINE 50 MG TABLET. PO SCH (08:38)
[2021-06-04] MEDS: ASCORBIC ACID 500 MG TABLET PO SCH (08:38)
[2021-06-04] MEDS: CARBIDOPA/LEVODOPA 25/100MG TABLET PO SCH ×3 (08:38→20:09)
[2021-06-04] MEDS: POLYETHYLENE GLYCOL 3350 17 GM PACKET. PO SCH (08:39)
[2021-06-04 15:59] VITALS: BP 114/70
[2021-06-04] MEDS: ATORVASTATIN CALCIUM 10 MG TABLET. PO SCH (20:09)
--- NOTE | 2021-06-04 21:35 | PDOC ---
Exam Note: Daren Note: Please also refer to the separate dictated note~for this date of service dictated separately.~Patient seen individually. Discussed the patient with Nursing staff reviewed the chart.~Reviewed interim history and current functioning. Reviewed vital signs,~Labs/ Radiology~and current medications noted below. Continue current treatment with the changes noted in the dictated addendum note Assessment: Vital Signs/I&O: Vital Signs Date Time Temp Pulse Resp B/P (MAP) Pulse Ox O2 Delivery O2 Flow Rate FiO2 06/04/21 15:59 97.4 68 16 114/70 (85) 98 06/03/21 06:05 Room Air I & O 06/03/21 06/03/21 06/04/21 15:00 23:00 07:00 Intake Total 360 ml 360 ml Balance 360 ml 360 ml Current Medications: Meds: Current Medications Medications (Trade) Dose Ordered Sig/Daisy Route PRN Reason Start Time Stop Time Status Last Admin Dose Admin Acetaminophen (Tylenol) 650 mg PRN Q6HRS PRN PO MILD PAIN / TEMP > 100.3'F 05/11/21 16:15 Multi-Ingredient Ointment (Analgesic [place]) 1 eva PRN QID PRN TP MUSCLE PAIN 05/11/21 16:15 Al Hydroxide/Mg Hydroxide (Mylanta Plus Xs) 15 ml PRN AFTMEALHC PRN PO DYSPEPSIA 05/11/21 16:15 Magnesium Hydroxide (Milk Of Magnesia) 2,400 mg PRN QHS PRN PO CONSTIPATION 05/11/21 16:15 Nicotine (Nicoderm Cq 14mg Patch) 1 patch DAILY TD 05/12/21 09:00 05/30/21 17:27 DC 05/29/21 08:46 Ascorbic Acid (Vitamin C) 500 mg DAILY PO 05/12/21 09:00 06/04/21 08:38 Aspirin (Aspirin Chewable) 81 mg DAILY PO 05/12/21 09:00 06/04/21 08:38 Nicotine (Nicoderm Cq 14mg Patch) 1 patch DAILY TD 05/12/21 09:00 UNV Potassium Chloride (Klor-Con) 40 meq DAILY PO 05/12/21 09:00 06/04/21 08:37 Sennosides (Senna) 8.6 mg DAILY PO 05/12/21 09:00 06/04/21 08:37 Sertraline HCl (Zoloft) 125 mg DAILY PO 05/12/21 09:00 05/18/21 18:20 DC 05/18/21 08:59 Vitamin D (Vitamin D3) 1,000 unit DAILY PO 05/12/21 09:00 06/04/21 08:37 Cyanocobalamin (Vitamin B-12) 1,000 mcg [id number] PO 05/12/21 09:00 05/12/21 08:19 Polyethylene Glycol (miraLAX) 17 gm DAILY PO 05/12/21 09:00 06/04/21 08:39 Atorvastatin Calcium (Lipitor) 10 mg QHS PO 05/12/21 21:00 06/04/21 20:09 Quetiapine Fumarate (SEROquel) 25 mg PRN BID PRN PO AGITATION 05/12/21 07:15 05/19/21 19:14 DC 05/19/21 09:35 Divalproex Sodium (Depakote Sprinkles) 125 mg [id number] PO 05/12/21 09:00 05/12/21 16:01 DC 05/12/21 08:19 Ipratropium [place] (Atrovent Nasal) 1 spray BID NS 05/12/21 09:00 06/04/21 20:09 Divalproex Sodium (Depakote Sprinkles) 250 mg [id number] PO 05/12/21 16:00 05/16/21 18:09 DC 05/16/21 15:00 Cefdinir (Omnicef) 300 mg BID PO 05/14/21 21:00 05/20/21 22:00 DC 05/20/21 21:00 Lactobacillus Rhamnosus (Culturelle) 1 cap BID PO 05/14/21 21:00 06/04/21 20:09 Carbidopa/Levodopa (Sinemet 25/100) 1 tab TID PO 05/15/21 21:00 06/04/21 20:09 Divalproex Sodium (Depakote Sprinkles) 375 mg [id number] PO 05/17/21 09:00 05/27/21 19:14 DC 05/27/21 14:52 Sertraline HCl (Zoloft) 150 mg DAILY PO 05/19/21 09:00 06/01/21 11:53 DC 06/01/21 09:01 Quetiapine Fumarate (SEROquel) 25 mg 0900,1700 PO 05/20/21 09:00 05/23/21 18:17 DC 05/23/21 17:00 Olanzapine (ZyPREXA ZYDIS) 2.5 mg PRN Q2HR PRN PO PSYCHOSIS 05/20/21 10:00 06/01/21 20:10 Quetiapine Fumarate (SEROquel) 25 mg 0900,1300,1700 PO 05/24/21 09:00 05/25/21 11:57 DC 05/25/21 09:00 Quetiapine Fumarate (SEROquel) 25 mg 0900,1200,1500,1800 PO 05/25/21 12:00 06/04/21 17:39 Divalproex Sodium (Depakote Sprinkles) 500 mg [id number] PO 05/28/21 09:00 06/04/21 16:03 Nicotine (Nicoderm Cq 7mg Patch) 1 patch DAILY TD 05/31/21 09:00 06/04/21 08:38 Sertraline HCl (Zoloft) 175 mg DAILY PO 06/02/21 09:00 06/04/21 08:38 I have reviewed the current psychotropics carefully including drug interactions. Risk benefit ratio favors no change other than as noted in my dictated progress note. Diagnosis: Problems: (1) Impulse control disorder, unspecified (2) Anxiety disorder, unspecified (3) Dementia, vascular, with depression (4) Dementia, vascular, with delusions (5) Dementia in Alzheimer's disease with depression (6) Dementia in Alzheimer's disease with delusions (7) Dementia of the Alzheimer's type with early onset with behavioral disturbance (8) Major neurocognitive disorder (9) Major depressive disorder, recurrent episode (10) Mild cognitive impairment MICHAEL MCKEON MD Jun 04, 2021 21:35
[2021-06-05 06:02] VITALS: BP 118/68
--- NOTE | 2021-06-05 07:36 | PDOC ---
Exam Note: Daren Note: This note is a late entry for 06/02/2021 covers elements not covered in my initial note. Subjective: The patient was seen individually on 06/02/2021, discussed and reviewed the chart with Corinne MATIAS. The patient slept 8-1/2 hours previous night. He has done better. He was quite irritable previous night. He urinated in the wheelchair and the bed. Review of Systems: Ambulation impaired, in wheelchair. No CV, , pulmonary, eye system symptoms on review. Mental Status Exam: The patient is oriented to himself and situation. Speech has some latency. Often response is monosyllabic, coherent. Abstraction fair. Computation impaired. Language function intact. Mood and affect withdrawn. Laboratory Data: Reviewed. 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 Anxiety disorder unspecified. Impulse control disorder unspecified. Plan: No change from initial note. Assessment: Vital Signs/I&O: Vital Signs Date Time Temp Pulse Resp B/P (MAP) Pulse Ox O2 Delivery O2 Flow Rate FiO2 06/05/21 06:02 97.2 66 18 118/68 (85) 98 06/03/21 06:05 Room Air I & O 06/04/21 06/04/21 06/05/21 15:00 23:00 07:00 Intake Total 560 ml 240 ml Balance 560 ml 240 ml Current Medications: I have reviewed the current psychotropics carefully including drug interactions. Risk benefit ratio favors no change other than as noted in my dictated progress note. Diagnosis: Problems: (1) Impulse control disorder, unspecified (2) Anxiety disorder, unspecified (3) Dementia, vascular, with depression (4) Dementia, vascular, with delusions (5) Dementia in Alzheimer's disease with depression (6) Dementia in Alzheimer's disease with delusions (7) Dementia of the Alzheimer's type with early onset with behavioral disturbance (8) Major neurocognitive disorder (9) Major depressive disorder, recurrent episode (10) Mild cognitive impairment MICHAEL MCKEON MD Jun 05, 2021 07:36
--- NOTE | 2021-06-05 07:50 | PDOC ---
Exam Note: Daren Note: This note is a late entry for 06/03/2021 covers elements not covered in my initial note. Subjective: The patient was seen individually on 06/03/2021, discussed and reviewed the chart with Pollo MATIAS. The patient slept 8 hours previous night. Overall he is doing about the same. Review of Systems: Ambulation impaired, in wheelchair. No CV, , pulmonary, eye system symptoms on review. Mental Status Exam: The patient is oriented to himself and situation. He is quite pleasant, interactive as I met with him. Speech has some latency. Often response is monosyllabic, coherent. Abstraction fair. Computation impaired. Language function intact. Mood and affect withdrawn. Laboratory Data: Reviewed. 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 Anxiety disorder unspecified. Impulse control disorder unspecified. Plan: No change from initial note. Assessment: Vital Signs/I&O: Vital Signs Date Time Temp Pulse Resp B/P (MAP) Pulse Ox O2 Delivery O2 Flow Rate FiO2 06/05/21 06:02 97.2 66 18 118/68 (85) 98 06/03/21 06:05 Room Air I & O 06/04/21 06/04/21 06/05/21 15:00 23:00 07:00 Intake Total 560 ml 240 ml Balance 560 ml 240 ml Current Medications: I have reviewed the current psychotropics carefully including drug interactions. Risk benefit ratio favors no change other than as noted in my dictated progress note. Diagnosis: Problems: (1) Impulse control disorder, unspecified (2) Anxiety disorder, unspecified (3) Dementia, vascular, with depression (4) Dementia, vascular, with delusions (5) Dementia in Alzheimer's disease with depression (6) Dementia in Alzheimer's disease with delusions (7) Dementia of the Alzheimer's type with early onset with behavioral disturbance (8) Major neurocognitive disorder (9) Major depressive disorder, recurrent episode (10) Mild cognitive impairment MICHAEL MCKEON MD Jun 05, 2021 07:50
[2021-06-05] MEDS: CARBIDOPA/LEVODOPA 25/100MG TABLET PO SCH ×3 (08:03→21:16)
[2021-06-05] MEDS: IPRATROPIUM BROMIDE 0.06% NASAL SPRAY 15ML BOTTLE NS SCH ×2 (08:03→21:16)
[2021-06-05] MEDS: POTASSIUM CHLORIDE 20 MEQ TABLET.ER. PO SCH (08:03)
[2021-06-05] MEDS: QUEtiapine 25 MG TABLET. PO SCH ×4 (08:03→17:40)
[2021-06-05] MEDS: POLYETHYLENE GLYCOL 3350 17 GM PACKET. PO SCH (08:03)
[2021-06-05] MEDS: LACTOBACILLUS RHAMNOSUS GG 1 CAPSULE. PO SCH ×2 (08:03→21:15)
[2021-06-05] MEDS: CHOLECALCIFEROL (VITAMIN D3) 1,000 UNIT TABLET PO SCH (08:04)
[2021-06-05] MEDS: ASPIRIN CHEWABLE 81 MG TABLET. PO SCH (08:04)
[2021-06-05] MEDS: SENNOSIDES 8.6 MG TABLET PO SCH (08:04)
[2021-06-05] MEDS: ASCORBIC ACID 500 MG TABLET PO SCH (08:04)
[2021-06-05] MEDS: DIVALPROEX 125 MG CAP.SPRINK PO SCH ×2 (08:05→14:36)
[2021-06-05] MEDS: SERTRALINE 50 MG TABLET. PO SCH (08:05)
[2021-06-05] MEDS: NICOTINE 7MG PATCH. TD SCH (08:06)
--- NOTE | 2021-06-05 08:09 | PDOC ---
Exam Note: Daren Note: This note is a late entry for 06/04/2021 covers elements not covered in my initial note. Subjective: The patient was seen individually on 06/04/2021, discussed and reviewed the chart with Pollo MATIAS. The patient slept 8-3/4 hours previous night. Overall he is doing better., irritable with nursing aid and filter changing technician who felt the patient might have been demented and was talking to him as such whereas the patient was reasonably oriented within reason. He does slide himself to the floor. Review of Systems: Ambulation impaired, in wheelchair. No CV, , pulmonary, eye system symptoms on review. Mental Status Exam: The patient is oriented to himself and situation. Speech has some latency. Often response is monosyllabic, coherent. Abstraction fair. Computation impaired. Language function intact. Mood and affect withdrawn. Laboratory Data: Reviewed. 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 Anxiety disorder unspecified. Impulse control disorder unspecified. Plan: No change from initial note. Assessment: Vital Signs/I&O: Vital Signs Date Time Temp Pulse Resp B/P (MAP) Pulse Ox O2 Delivery O2 Flow Rate FiO2 06/05/21 06:02 97.2 66 18 118/68 (85) 98 06/03/21 06:05 Room Air I & O 06/04/21 06/04/21 06/05/21 15:00 23:00 07:00 Intake Total 560 ml 240 ml Balance 560 ml 240 ml Current Medications: I have reviewed the current psychotropics carefully including drug interactions. Risk benefit ratio favors no change other than as noted in my dictated progress note. Diagnosis: Problems: (1) Impulse control disorder, unspecified (2) Anxiety disorder, unspecified (3) Dementia, vascular, with depression (4) Dementia, vascular, with delusions (5) Dementia in Alzheimer's disease with depression (6) Dementia in Alzheimer's disease with delusions (7) Dementia of the Alzheimer's type with early onset with behavioral disturbance (8) Major neurocognitive disorder (9) Major depressive disorder, recurrent episode (10) Mild cognitive impairment MICHAEL MCKEON MD Jun 05, 2021 08:09
[2021-06-05 15:47] VITALS: BP 105/70
--- NOTE | 2021-06-05 16:12 | TX PLAN ---
Interdisciplinary Tx Plan Admission Information May 11, 2021 at 14:29 Legal Status (on Admission): Voluntary DPOA/Guardian Name: Milvia patel Contact Other Contact Name: Mercedes LUND Other Contact Verified Code Status: Full Code Allergies: Coded Allergies: No Known Drug Allergies (Unverified , 02/17/20) Diagnoses Primary Diagnosis: Dementia, Vascular with Depression and BD Reasons for Admission: Depressed, Suicidal attempt, Poor impulse control Problem in Patient's Words: Concerned that he may need a higher level of care Additional Admission Comments: According to the intake, pt has acute suicidal ideations, attempted to drown himself in a pond, depressed, poor intake and refusing meds. Eloped from the facility, aggressive when doesn't want to do something Problems Active Problems: Withdrawn Inactive Problems: Medication complaint Pt Strengths/Limitations Ability for [place]: Poor Cognitive Functioning/Ability: Fair Communication Skills/Ability: Fair Financial Resources: Fair Insight/Judgement: Poor Intellectual Ability: Fair Physical Health: Poor Social Skills: Fair Stability in Family: Fair Stability in School/Work: Poor Verbal Skills: Fair Discharge Criteria Discharge Criteria: No need for close observ., Adequate arrangements @DC, Improved behavior, Improved mood/thought Preliminary Discharge Plan Preliminary DC Plan: Current Living Arrange. Special Precautions Fall Risk: Moderate Initial D/C Plan Pt to return to [facility] once stable. Identified Discharge Needs: Psychiatric care needs Currently Utilized Resources Currently Utilized Resources/P: Services through the [facility] Identified Problems/Hx/Goals Objectives/Short-Term Goals Short Term Goals: No Suicidal/Serjio. ideation Short Term Goals in Patient's: N/A Interventions/Frequency Staff Interventions/Frequency&: Psychiatrist to assess pt at least 3x per week for medication management. Social Work to assess pt at least 2x per week to identify barriers to care and discharge planning. Nursing to assess medication effects, behavior modification and completion of 15 minute checks. Encourage participation in group activities (if applicable) or 1:1 engagement based off activity dept goals. History Vocational History: Pt worked for the [employer] for the [employer] for many years. Retired due to "not liking people". Education: Pt graduated HS 12th grade Community Follow-up Will continue services through the [facility] Treatment Plan Explained Patient/[employer] had this treatment plan explained to him/her as indicated by the signature below and has been given the opportunity to ask questions and make suggestions: Date: Patient/[employer] Signature: Status Update Update Pt has been admitted since May 11, 2021. Pt has been here for multiple week due to Covid quarantine on [facility]. Currently, pt is eating 75% of meals and sleeping 7.25 hours per night. Pt is more cooperative with cares and able to verbalize his needs. Pt does have periods of intermittent verbal aggression but more redirectable. Pt is medication compliant; his VPA is therapeutic at 60. [facility] as [facility] is not able to fully meet his needs. JESSIE is working with pt dtr and submitted a referral packet over to [facility]. JESSIE to follow up with the [facility], pt family and the pt re: discharge plans. CHAVA JIANG Jun 05, 2021 16:12
--- NOTE | 2021-06-05 21:14 | PDOC ---
Exam Note: Daren Note: Please also refer to the separate dictated note~for this date of service dictated separately.~Patient seen individually. Discussed the patient with Nursing staff reviewed the chart.~Reviewed interim history and current functioning. Reviewed vital signs,~Labs/ Radiology~and current medications noted below. Continue current treatment with the changes noted in the dictated addendum note Assessment: Vital Signs/I&O: Vital Signs Date Time Temp Pulse Resp B/P (MAP) Pulse Ox O2 Delivery O2 Flow Rate FiO2 06/05/21 15:47 98.4 82 18 105/70 (82) 97 06/03/21 06:05 Room Air I & O 06/04/21 06/04/21 06/05/21 15:00 23:00 07:00 Intake Total 560 ml 240 ml Balance 560 ml 240 ml Current Medications: Meds: Current Medications Medications (Trade) Dose Ordered Sig/Daisy Route PRN Reason Start Time Stop Time Status Last Admin Dose Admin Acetaminophen (Tylenol) 650 mg PRN Q6HRS PRN PO MILD PAIN / TEMP > 100.3'F 05/11/21 16:15 Multi-Ingredient Ointment (Analgesic [place]) 1 eva PRN QID PRN TP MUSCLE PAIN 05/11/21 16:15 Al Hydroxide/Mg Hydroxide (Mylanta Plus Xs) 15 ml PRN AFTMEALHC PRN PO DYSPEPSIA 05/11/21 16:15 Magnesium Hydroxide (Milk Of Magnesia) 2,400 mg PRN QHS PRN PO CONSTIPATION 05/11/21 16:15 Nicotine (Nicoderm Cq 14mg Patch) 1 patch DAILY TD 05/12/21 09:00 05/30/21 17:27 DC 05/29/21 08:46 Ascorbic Acid (Vitamin C) 500 mg DAILY PO 05/12/21 09:00 06/05/21 08:04 Aspirin (Aspirin Chewable) 81 mg DAILY PO 05/12/21 09:00 06/05/21 08:04 Nicotine (Nicoderm Cq 14mg Patch) 1 patch DAILY TD 05/12/21 09:00 UNV Potassium Chloride (Klor-Con) 40 meq DAILY PO 05/12/21 09:00 06/05/21 08:03 Sennosides (Senna) 8.6 mg DAILY PO 05/12/21 09:00 06/05/21 08:04 Sertraline HCl (Zoloft) 125 mg DAILY PO 05/12/21 09:00 05/18/21 18:20 DC 05/18/21 08:59 Vitamin D (Vitamin D3) 1,000 unit DAILY PO 05/12/21 09:00 06/05/21 08:04 Cyanocobalamin (Vitamin B-12) 1,000 mcg [id number] PO 05/12/21 09:00 05/12/21 08:19 Polyethylene Glycol (miraLAX) 17 gm DAILY PO 05/12/21 09:00 06/05/21 08:03 Atorvastatin Calcium (Lipitor) 10 mg QHS PO 05/12/21 21:00 06/04/21 20:09 Quetiapine Fumarate (SEROquel) 25 mg PRN BID PRN PO AGITATION 05/12/21 07:15 05/19/21 19:14 DC 05/19/21 09:35 Divalproex Sodium (Depakote Sprinkles) 125 mg [id number] PO 05/12/21 09:00 05/12/21 16:01 DC 05/12/21 08:19 Ipratropium [place] (Atrovent Nasal) 1 spray BID NS 05/12/21 09:00 06/05/21 08:03 Divalproex Sodium (Depakote Sprinkles) 250 mg [id number] PO 05/12/21 16:00 05/16/21 18:09 DC 05/16/21 15:00 Cefdinir (Omnicef) 300 mg BID PO 05/14/21 21:00 05/20/21 22:00 DC 05/20/21 21:00 Lactobacillus Rhamnosus (Culturelle) 1 cap BID PO 05/14/21 21:00 06/05/21 08:03 Carbidopa/Levodopa (Sinemet 25/100) 1 tab TID PO 05/15/21 21:00 06/05/21 14:36 Divalproex Sodium (Depakote Sprinkles) 375 mg [id number] PO 05/17/21 09:00 05/27/21 19:14 DC 05/27/21 14:52 Sertraline HCl (Zoloft) 150 mg DAILY PO 05/19/21 09:00 06/01/21 11:53 DC 06/01/21 09:01 Quetiapine Fumarate (SEROquel) 25 mg 0900,1700 PO 05/20/21 09:00 05/23/21 18:17 DC 05/23/21 17:00 Olanzapine (ZyPREXA ZYDIS) 2.5 mg PRN Q2HR PRN PO PSYCHOSIS 05/20/21 10:00 06/01/21 20:10 Quetiapine Fumarate (SEROquel) 25 mg 0900,1300,1700 PO 05/24/21 09:00 05/25/21 11:57 DC 05/25/21 09:00 Quetiapine Fumarate (SEROquel) 25 mg 0900,1200,1500,1800 PO 05/25/21 12:00 06/05/21 17:40 Divalproex Sodium (Depakote Sprinkles) 500 mg [id number] PO 05/28/21 09:00 06/05/21 14:36 Nicotine (Nicoderm Cq 7mg Patch) 1 patch DAILY TD 05/31/21 09:00 06/05/21 08:06 Sertraline HCl (Zoloft) 175 mg DAILY PO 06/02/21 09:00 06/05/21 08:05 I have reviewed the current psychotropics carefully including drug interactions. Risk benefit ratio favors no change other than as noted in my dictated progress note. Diagnosis: Problems: (1) Impulse control disorder, unspecified (2) Major depressive disorder, severe (3) Anxiety disorder, unspecified (4) Dementia, vascular, with depression (5) Dementia, vascular, with delusions (6) Dementia in Alzheimer's disease with depression (7) Dementia in Alzheimer's disease with delusions (8) Dementia of the Alzheimer's type with early onset with behavioral disturbance (9) Major neurocognitive disorder (10) Mild cognitive impairment MICHAEL MCKEON MD Jun 05, 2021 21:14
[2021-06-05] MEDS: ATORVASTATIN CALCIUM 10 MG TABLET. PO SCH (21:15)
[2021-06-06 06:29] VITALS: BP 153/79
[2021-06-06] MEDS: LACTOBACILLUS RHAMNOSUS GG 1 CAPSULE. PO SCH ×2 (08:16→20:46)
[2021-06-06] MEDS: POLYETHYLENE GLYCOL 3350 17 GM PACKET. PO SCH (08:16)
[2021-06-06] MEDS: CHOLECALCIFEROL (VITAMIN D3) 1,000 UNIT TABLET PO SCH (08:16)
[2021-06-06] MEDS: ASCORBIC ACID 500 MG TABLET PO SCH (08:17)
[2021-06-06] MEDS: SERTRALINE 50 MG TABLET. PO SCH (08:17)
[2021-06-06] MEDS: SENNOSIDES 8.6 MG TABLET PO SCH (08:17)
[2021-06-06] MEDS: POTASSIUM CHLORIDE 20 MEQ TABLET.ER. PO SCH (08:17)
[2021-06-06] MEDS: CARBIDOPA/LEVODOPA 25/100MG TABLET PO SCH ×3 (08:18→20:46)
[2021-06-06] MEDS: DIVALPROEX 125 MG CAP.SPRINK PO SCH ×2 (08:18→15:15)
[2021-06-06] MEDS: NICOTINE 7MG PATCH. TD SCH (08:18)
[2021-06-06] MEDS: QUEtiapine 25 MG TABLET. PO SCH ×4 (08:18→17:14)
[2021-06-06] MEDS: ASPIRIN CHEWABLE 81 MG TABLET. PO SCH (08:18)
[2021-06-06] MEDS: IPRATROPIUM BROMIDE 0.06% NASAL SPRAY 15ML BOTTLE NS SCH ×2 (08:19→20:46)
[2021-06-06 16:17] VITALS: BP 117/57
[2021-06-06] MEDS: ATORVASTATIN CALCIUM 10 MG TABLET. PO SCH (20:46)
--- NOTE | 2021-06-06 21:42 | PDOC ---
Exam Note: Daren Note: Please also refer to the separate dictated note~for this date of service dictated separately.~Patient seen individually. Discussed the patient with Nursing staff reviewed the chart.~Reviewed interim history and current functioning. Reviewed vital signs,~Labs/ Radiology~and current medications noted below. Continue current treatment with the changes noted in the dictated addendum note Assessment: Vital Signs/I&O: Vital Signs Date Time Temp Pulse Resp B/P (MAP) Pulse Ox O2 Delivery O2 Flow Rate FiO2 06/06/21 16:17 98.1 77 18 117/57 (77) 93 06/06/21 06:29 Room Air I & O 06/05/21 06/05/21 06/06/21 15:00 23:00 07:00 Intake Total 440 ml 480 ml Balance 440 ml 480 ml Labs: Laboratory Tests Test 06/06/21 15:30 POC SARS CoV-2 Antigen Negative (NEGATIVE) Current Medications: Meds: Laboratory Tests Test 06/06/21 15:30 POC SARS CoV-2 Antigen Negative Current Medications Medications (Trade) Dose Ordered Sig/Daisy Route PRN Reason Start Time Stop Time Status Last Admin Dose Admin Acetaminophen (Tylenol) 650 mg PRN Q6HRS PRN PO MILD PAIN / TEMP > 100.3'F 05/11/21 16:15 Multi-Ingredient Ointment (Analgesic [place]) 1 eva PRN QID PRN TP MUSCLE PAIN 05/11/21 16:15 Al Hydroxide/Mg Hydroxide (Mylanta Plus Xs) 15 ml PRN AFTMEALHC PRN PO DYSPEPSIA 05/11/21 16:15 Magnesium Hydroxide (Milk Of Magnesia) 2,400 mg PRN QHS PRN PO CONSTIPATION 05/11/21 16:15 Nicotine (Nicoderm Cq 14mg Patch) 1 patch DAILY TD 05/12/21 09:00 05/30/21 17:27 DC 05/29/21 08:46 Ascorbic Acid (Vitamin C) 500 mg DAILY PO 05/12/21 09:00 06/06/21 08:17 Aspirin (Aspirin Chewable) 81 mg DAILY PO 05/12/21 09:00 06/06/21 08:18 Nicotine (Nicoderm Cq 14mg Patch) 1 patch DAILY TD 05/12/21 09:00 UNV Potassium Chloride (Klor-Con) 40 meq DAILY PO 05/12/21 09:00 06/06/21 08:17 Sennosides (Senna) 8.6 mg DAILY PO 05/12/21 09:00 06/06/21 08:17 Sertraline HCl (Zoloft) 125 mg DAILY PO 05/12/21 09:00 05/18/21 18:20 DC 05/18/21 08:59 Vitamin D (Vitamin D3) 1,000 unit DAILY PO 05/12/21 09:00 06/06/21 08:16 Cyanocobalamin (Vitamin B-12) 1,000 mcg [id number] PO 05/12/21 09:00 05/12/21 08:19 Polyethylene Glycol (miraLAX) 17 gm DAILY PO 05/12/21 09:00 06/06/21 08:16 Atorvastatin Calcium (Lipitor) 10 mg QHS PO 05/12/21 21:00 06/06/21 20:46 Quetiapine Fumarate (SEROquel) 25 mg PRN BID PRN PO AGITATION 05/12/21 07:15 05/19/21 19:14 DC 05/19/21 09:35 Divalproex Sodium (Depakote Sprinkles) 125 mg [id number] PO 05/12/21 09:00 05/12/21 16:01 DC 05/12/21 08:19 Ipratropium [place] (Atrovent Nasal) 1 spray BID NS 05/12/21 09:00 06/06/21 20:46 Divalproex Sodium (Depakote Sprinkles) 250 mg [id number] PO 05/12/21 16:00 05/16/21 18:09 DC 05/16/21 15:00 Cefdinir (Omnicef) 300 mg BID PO 05/14/21 21:00 05/20/21 22:00 DC 05/20/21 21:00 Lactobacillus Rhamnosus (Culturelle) 1 cap BID PO 05/14/21 21:00 06/06/21 20:46 Carbidopa/Levodopa (Sinemet 25/100) 1 tab TID PO 05/15/21 21:00 06/06/21 20:46 Divalproex Sodium (Depakote Sprinkles) 375 mg [id number] PO 05/17/21 09:00 05/27/21 19:14 DC 05/27/21 14:52 Sertraline HCl (Zoloft) 150 mg DAILY PO 05/19/21 09:00 06/01/21 11:53 DC 06/01/21 09:01 Quetiapine Fumarate (SEROquel) 25 mg 0900,1700 PO 05/20/21 09:00 05/23/21 18:17 DC 05/23/21 17:00 Olanzapine (ZyPREXA ZYDIS) 2.5 mg PRN Q2HR PRN PO PSYCHOSIS 05/20/21 10:00 06/01/21 20:10 Quetiapine Fumarate (SEROquel) 25 mg 0900,1300,1700 PO 05/24/21 09:00 05/25/21 11:57 DC 05/25/21 09:00 Quetiapine Fumarate (SEROquel) 25 mg 0900,1200,1500,1800 PO 05/25/21 12:00 06/06/21 17:14 Divalproex Sodium (Depakote Sprinkles) 500 mg [id number] PO 05/28/21 09:00 06/06/21 15:15 Nicotine (Nicoderm Cq 7mg Patch) 1 patch DAILY TD 05/31/21 09:00 06/06/21 08:18 Sertraline HCl (Zoloft) 175 mg DAILY PO 06/02/21 09:00 06/06/21 08:17 I have reviewed the current psychotropics carefully including drug interactions. Risk benefit ratio favors no change other than as noted in my dictated progress note. Diagnosis: Problems: (1) Impulse control disorder, unspecified (2) Major depressive disorder, severe (3) Anxiety disorder, unspecified (4) Dementia, vascular, with depression (5) Dementia, vascular, with delusions (6) Dementia in Alzheimer's disease with depression (7) Dementia in Alzheimer's disease with delusions (8) Dementia of the Alzheimer's type with early onset with behavioral disturbance (9) Major neurocognitive disorder (10) Mild cognitive impairment MICHAEL MCKEON MD Jun 06, 2021 21:42
[2021-06-07 06:13] VITALS: BP 122/64
--- NOTE | 2021-06-07 06:55 | PDOC ---
Exam Note: Daren Note: This note is a late entry for 06/05/2021 covers elements not covered in my initial note. Subjective: The patient was seen individually on 06/05/2021, discussed and reviewed the chart with Janeth MATIAS. The patient remains somewhat anxious, trying to get out of the dining room. He has some tremors and questionable parkinsonian-like movement. Review of Systems: Ambulation impaired, in wheelchair. No CV, , pulmonary, eye system symptoms on review. Reliability poor. Mental Status Exam: The patient is oriented to himself and situation. Speech has some latency. Often response is monosyllabic. Abstraction fair. Computation impaired. Language function intact. Mood and affect remains somewhat anxious, labile but improved. Laboratory Data: Reviewed. 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 Anxiety disorder unspecified. Impulse control disorder unspecified. Plan: No change from initial note. Assessment: Vital Signs/I&O: Vital Signs Date Time Temp Pulse Resp B/P (MAP) Pulse Ox O2 Delivery O2 Flow Rate FiO2 06/07/21 06:13 97.9 73 16 122/64 (83) 99 06/06/21 06:29 Room Air I & O 06/06/21 06/06/21 06/07/21 15:00 23:00 07:00 Intake Total 600 ml 100 ml Balance 600 ml 100 ml Labs: Laboratory Tests Test 06/06/21 15:30 POC SARS CoV-2 Antigen Negative (NEGATIVE) Current Medications: I have reviewed the current psychotropics carefully including drug interactions. Risk benefit ratio favors no change other than as noted in my dictated progress note. Diagnosis: Problems: (1) Impulse control disorder, unspecified (2) Anxiety disorder, unspecified (3) Dementia, vascular, with depression (4) Dementia, vascular, with delusions (5) Dementia in Alzheimer's disease with depression (6) Dementia in Alzheimer's disease with delusions (7) Dementia of the Alzheimer's type with early onset with behavioral disturbance (8) Major neurocognitive disorder (9) Major depressive disorder, recurrent episode (10) Mild cognitive impairment MICHAEL MCKEON MD Jun 07, 2021 06:55
--- NOTE | 2021-06-07 07:14 | PDOC ---
Exam Note: Daren Note: This note is a late entry for 06/06/2021 covers elements not covered in my initial note. Subjective: The patient was seen individually on 06/06/2021, discussed and reviewed the chart with Shaquille MATIAS. The patient slept 7-3/4 hours previous night. I met with him in his room. He has not been agitated or aggressive. Review of Systems: Ambulation impaired, in wheelchair. No CV, , pulmonary, eye system symptoms on review. Difficulty to understand due to speech problems. Mental Status Exam: The patient is oriented to himself and situation. Speech coherent, rapid at times, difficult to understand. Abstraction fair. Computation impaired. Language function intact. Attention span short. Mood and affect somewhat labile. Laboratory Data: Reviewed. 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 Anxiety disorder unspecified. Impulse control disorder unspecified. Plan: No change from initial note. Adjust as clinically indicated. Assessment: Vital Signs/I&O: Vital Signs Date Time Temp Pulse Resp B/P (MAP) Pulse Ox O2 Delivery O2 Flow Rate FiO2 06/07/21 06:13 97.9 73 16 122/64 (83) 99 06/06/21 06:29 Room Air I & O 06/06/21 06/06/21 06/07/21 15:00 23:00 07:00 Intake Total 600 ml 100 ml Balance 600 ml 100 ml Labs: Laboratory Tests Test 06/06/21 15:30 POC SARS CoV-2 Antigen Negative (NEGATIVE) Current Medications: I have reviewed the current psychotropics carefully including drug interactions. Risk benefit ratio favors no change other than as noted in my dictated progress note. Diagnosis: Problems: (1) Impulse control disorder, unspecified (2) Major depressive disorder, severe (3) Anxiety disorder, unspecified (4) Dementia, vascular, with depression (5) Dementia, vascular, with delusions (6) Dementia in Alzheimer's disease with depression (7) Dementia in Alzheimer's disease with delusions (8) Dementia of the Alzheimer's type with early onset with behavioral di sturbance (9) Major neurocognitive disorder (10) Mild cognitive impairment MICHAEL MCKEON MD Jun 07, 2021 07:14
[2021-06-07 07:49] LABS: BASO % 1 % (0-3); EOS % 1 % (0-3); HEMATOCRIT 38.8 % (39.0-53.0); HEMOGLOBIN 13.1 g/dL (13.0-17.5); LYMPH # 0.8 x10^3/uL (1.0-4.8); LYMPH % 18 % (24-48); MEAN CORPUSCULAR HEMOGLOBIN 33 pg (25-35); MEAN CORPUSCULAR HGB CONC 34 g/dL (31-37); MEAN CORPUSCULAR VOLUME 97 fL (79-100); MONO # 0.4 x10^3/uL (0.0-1.1); MONO % 8 % (0-9); NEUT # 3.2 x10^3uL (1.8-7.7); NEUT % 72 % (31-73); PLATELET COUNT 115 x10^3/uL (140-400); RED BLOOD COUNT 4.01 x10^6/uL (4.30-5.70); RED CELL DISTRIBUTION WIDTH 14.9 % (11.5-14.5); WHITE BLOOD COUNT 4.5 x10^3/uL (4.0-11.0)
[2021-06-07 08:01] LABS: ALBUMIN 3.3 g/dL (3.4-5.0); ALBUMIN/GLOBULIN RATIO 1.1 (1.0-1.7); ALK PHOS 87 U/L (46-116); ANION GAP 3 (6-14); AST (SGOT) 11 U/L (15-37); BLOOD UREA NITROGEN 25 mg/dL (8-26); BUN/CREATININE RATIO 31 (6-20); CALCIUM 8.2 mg/dL (8.5-10.1); CARBON DIOXIDE 30 mmol/L (21-32); CHLORIDE 106 mmol/L (98-107); CREATININE 0.8 mg/dL (0.7-1.3); GFR 94.8; GLUCOSE 81 mg/dL (70-99); SODIUM 139 mmol/L (136-145); TOTAL BILIRUBIN 0.4 mg/dL (0.2-1.0); TOTAL PROTEIN 6.2 g/dL (6.4-8.2)
[2021-06-07 08:02] LABS: ALT (SGPT) < 6 U/L (16-63)
[2021-06-07] MEDS: IPRATROPIUM BROMIDE 0.06% NASAL SPRAY 15ML BOTTLE NS SCH ×2 (08:50→20:38)
[2021-06-07] MEDS: NICOTINE 7MG PATCH. TD SCH (08:50)
[2021-06-07] MEDS: POLYETHYLENE GLYCOL 3350 17 GM PACKET. PO SCH (08:50)
[2021-06-07] MEDS: ASPIRIN CHEWABLE 81 MG TABLET. PO SCH (08:51)
[2021-06-07] MEDS: SERTRALINE 50 MG TABLET. PO SCH (08:54)
[2021-06-07] MEDS: CHOLECALCIFEROL (VITAMIN D3) 1,000 UNIT TABLET PO SCH (08:54)
[2021-06-07] MEDS: QUEtiapine 25 MG TABLET. PO SCH ×4 (08:54→17:28)
[2021-06-07] MEDS: ASCORBIC ACID 500 MG TABLET PO SCH (08:54)
[2021-06-07] MEDS: SENNOSIDES 8.6 MG TABLET PO SCH (08:54)
[2021-06-07] MEDS: DIVALPROEX 125 MG CAP.SPRINK PO SCH ×2 (08:54→17:28)
[2021-06-07] MEDS: POTASSIUM CHLORIDE 20 MEQ TABLET.ER. PO SCH (08:54)
[2021-06-07] MEDS: CARBIDOPA/LEVODOPA 25/100MG TABLET PO SCH ×3 (08:54→20:38)
[2021-06-07] MEDS: LACTOBACILLUS RHAMNOSUS GG 1 CAPSULE. PO SCH ×2 (08:54→20:38)
[2021-06-07 15:45] VITALS: BP 134/75
[2021-06-07] MEDS: ATORVASTATIN CALCIUM 10 MG TABLET. PO SCH (20:38)
--- NOTE | 2021-06-07 21:31 | PDOC ---
Exam Note: Daren Note: Please also refer to the separate dictated note~for this date of service dictated separately.~Patient seen individually. Discussed the patient with Nursing staff reviewed the chart.~Reviewed interim history and current functioning. Reviewed vital signs,~Labs/ Radiology~and current medications noted below. Continue current treatment with the changes noted in the dictated addendum note Assessment: Vital Signs/I&O: Vital Signs Date Time Temp Pulse Resp B/P (MAP) Pulse Ox O2 Delivery O2 Flow Rate FiO2 06/07/21 15:45 98.1 71 16 134/75 (94) 98 Room Air I & O 06/06/21 06/06/21 06/07/21 14:59 22:59 06:59 Intake Total 600 ml 100 ml Balance 600 ml 100 ml Labs: Laboratory Tests Test 06/07/21 07:40 White Blood Count 4.5 x10^3/uL (4.0-11.0) Red Blood Count 4.01 x10^6/uL (4.30-5.70) L Hemoglobin 13.1 g/dL (13.0-17.5) Hematocrit 38.8 % (39.0-53.0) L Mean Corpuscular Volume 97 fL (79-100) Mean Corpuscular Hemoglobin 33 pg (25-35) Mean Corpuscular Hemoglobin Concent 34 g/dL (31-37) Red Cell Distribution Width 14.9 % (11.5-14.5) H Platelet Count 115 x10^3/uL (140-400) L Neutrophils (%) (Auto) 72 % (31-73) Lymphocytes (%) (Auto) 18 % (24-48) L Monocytes (%) (Auto) 8 % (0-9) Eosinophils (%) (Auto) 1 % (0-3) Basophils (%) (Auto) 1 % (0-3) Neutrophils # (Auto) 3.2 x10^3uL (1.8-7.7) Lymphocytes # (Auto) 0.8 x10^3/uL (1.0-4.8) L Monocytes # (Auto) 0.4 x10^3/uL (0.0-1.1) Eosinophils # (Auto) 0.0 x10^3/uL (0.0-0.7) Basophils # (Auto) 0.0 x10^3/uL (0.0-0.2) Sodium Level 139 mmol/L (136-145) Potassium Level 4.0 mmol/L (3.5-5.1) Chloride Level 106 mmol/L (98-107) Carbon Dioxide Level 30 mmol/L (21-32) Anion Gap 3 (6-14) L Blood Urea Nitrogen 25 mg/dL (8-26) Creatinine 0.8 mg/dL (0.7-1.3) Estimated GFR (Cockcroft-Gault) 94.8 BUN/Creatinine Ratio 31 (6-20) H Glucose Level 81 mg/dL (70-99) Calcium Level 8.2 mg/dL (8.5-10.1) L Total Bilirubin 0.4 mg/dL (0.2-1.0) Aspartate Amino Transferase (AST) 11 U/L (15-37) L Alanine Aminotransferase (ALT) < 6 U/L (16-63) L Alkaline Phosphatase 87 U/L (46-116) Total Protein 6.2 g/dL (6.4-8.2) L Albumin 3.3 g/dL (3.4-5.0) L Albumin/Globulin Ratio 1.1 (1.0-1.7) Current Medications: Meds: Laboratory Tests Test 06/07/21 07:40 White Blood Count 4.5 x10^3/uL Red Blood Count 4.01 x10^6/uL Hemoglobin 13.1 g/dL Hematocrit 38.8 % Mean Corpuscular Volume 97 fL Mean Corpuscular Hemoglobin 33 pg Mean Corpuscular Hemoglobin Concent 34 g/dL Red Cell Distribution Width 14.9 % Platelet Count 115 x10^3/uL Neutrophils (%) (Auto) 72 % Lymphocytes (%) (Auto) 18 % Monocytes (%) (Auto) 8 % Eosinophils (%) (Auto) 1 % Basophils (%) (Auto) 1 % Neutrophils # (Auto) 3.2 x10^3uL Lymphocytes # (Auto) 0.8 x10^3/uL Monocytes # (Auto) 0.4 x10^3/uL Eosinophils # (Auto) 0.0 x10^3/uL Basophils # (Auto) 0.0 x10^3/uL Sodium Level 139 mmol/L Potassium Level 4.0 mmol/L Chloride Level 106 mmol/L Carbon Dioxide Level 30 mmol/L Anion Gap 3 Blood Urea Nitrogen 25 mg/dL Creatinine 0.8 mg/dL Estimated GFR (Cockcroft-Gault) 94.8 BUN/Creatinine Ratio 31 Glucose Level 81 mg/dL Calcium Level 8.2 mg/dL Total Bilirubin 0.4 mg/dL Aspartate Amino Transf (AST/SGOT) 11 U/L Alanine Aminotransferase (ALT/SGPT) < 6 U/L Alkaline Phosphatase 87 U/L Total Protein 6.2 g/dL Albumin 3.3 g/dL Albumin/Globulin Ratio 1.1 Current Medications Medications (Trade) Dose Ordered Sig/Daisy Route PRN Reason Start Time Stop Time Status Last Admin Dose Admin Acetaminophen (Tylenol) 650 mg PRN Q6HRS PRN PO MILD PAIN / TEMP > 100.3'F 05/11/21 16:15 Multi-Ingredient Ointment (Analgesic [place]) 1 eva PRN QID PRN TP MUSCLE PAIN 05/11/21 16:15 Al Hydroxide/Mg Hydroxide (Mylanta Plus Xs) 15 ml PRN AFTMEALHC PRN PO DYSPEPSIA 05/11/21 16:15 Magnesium Hydroxide (Milk Of Magnesia) 2,400 mg PRN QHS PRN PO CONSTIPATION 05/11/21 16:15 Nicotine (Nicoderm Cq 14mg Patch) 1 patch DAILY TD 05/12/21 09:00 05/30/21 17:27 DC 05/29/21 08:46 Ascorbic Acid (Vitamin C) 500 mg DAILY PO 05/12/21 09:00 06/07/21 08:54 Aspirin (Aspirin Chewable) 81 mg DAILY PO 05/12/21 09:00 06/07/21 08:51 Nicotine (Nicoderm Cq 14mg Patch) 1 patch DAILY TD 05/12/21 09:00 UNV Potassium Chloride (Klor-Con) 40 meq DAILY PO 05/12/21 09:00 06/07/21 08:54 Sennosides (Senna) 8.6 mg DAILY PO 05/12/21 09:00 06/07/21 08:54 Sertraline HCl (Zoloft) 125 mg DAILY PO 05/12/21 09:00 05/18/21 18:20 DC 05/18/21 08:59 Vitamin D (Vitamin D3) 1,000 unit DAILY PO 05/12/21 09:00 06/07/21 08:54 Cyanocobalamin (Vitamin B-12) 1,000 mcg [id number] PO 05/12/21 09:00 05/12/21 08:19 Polyethylene Glycol (miraLAX) 17 gm DAILY PO 05/12/21 09:00 06/07/21 08:50 Atorvastatin Calcium (Lipitor) 10 mg QHS PO 05/12/21 21:00 06/07/21 20:38 Quetiapine Fumarate (SEROquel) 25 mg PRN BID PRN PO AGITATION 05/12/21 07:15 05/19/21 19:14 DC 05/19/21 09:35 Divalproex Sodium (Depakote Sprinkles) 125 mg [id number] PO 05/12/21 09:00 05/12/21 16:01 DC 05/12/21 08:19 Ipratropium [place] (Atrovent Nasal) 1 spray BID NS 05/12/21 09:00 06/07/21 20:38 Divalproex Sodium (Depakote Sprinkles) 250 mg [id number] PO 05/12/21 16:00 05/16/21 18:09 DC 05/16/21 15:00 Cefdinir (Omnicef) 300 mg BID PO 05/14/21 21:00 05/20/21 22:00 DC 05/20/21 21:00 Lactobacillus Rhamnosus (Culturelle) 1 cap BID PO 05/14/21 21:00 06/07/21 20:38 Carbidopa/Levodopa (Sinemet 25/100) 1 tab TID PO 05/15/21 21:00 06/07/21 20:38 Divalproex Sodium (Depakote Sprinkles) 375 mg [id number] PO 05/17/21 09:00 05/27/21 19:14 DC 05/27/21 14:52 Sertraline HCl (Zoloft) 150 mg DAILY PO 05/19/21 09:00 06/01/21 11:53 DC 06/01/21 09:01 Quetiapine Fumarate (SEROquel) 25 mg 0900,1700 PO 05/20/21 09:00 05/23/21 18:17 DC 05/23/21 17:00 Olanzapine (ZyPREXA ZYDIS) 2.5 mg PRN Q2HR PRN PO PSYCHOSIS 05/20/21 10:00 06/01/21 20:10 Quetiapine Fumarate (SEROquel) 25 mg 0900,1300,1700 PO 05/24/21 09:00 05/25/21 11:57 DC 05/25/21 09:00 Quetiapine Fumarate (SEROquel) 25 mg 0900,1200,1500,1800 PO 05/25/21 12:00 06/07/21 17:28 Divalproex Sodium (Depakote Sprinkles) 500 mg [id number] PO 05/28/21 09:00 06/07/21 17:03 DC 06/07/21 08:54 Nicotine (Nicoderm Cq 7mg Patch) 1 patch DAILY TD 05/31/21 09:00 06/07/21 08:50 Sertraline HCl (Zoloft) 175 mg DAILY PO 06/02/21 09:00 06/07/21 08:54 Divalproex Sodium (Depakote Sprinkles) 250 mg [id number] PO 06/08/21 09:00 06/07/21 17:07 DC Divalproex Sodium (Depakote Sprinkles) 250 mg [id number] PO 06/07/21 17:15 06/07/21 17:28 Current Medications Medications (Trade) Dose Ordered Sig/Daisy Route PRN Reason Start Time Stop Time Status Last Admin Dose Admin Divalproex Sodium (Depakote Sprinkles) 250 mg BID94 PO 06/07/21 17:15 06/07/21 17:28 I have reviewed the current psychotropics carefully including drug interactions. Risk benefit ratio favors no change other than as noted in my dictated progress note. Diagnosis: Problems: (1) Impulse control disorder, unspecified (2) Anxiety disorder, unspecified (3) Dementia, vascular, with depression (4) Dementia, vascular, with delusions (5) Dementia in Alzheimer's disease with depression (6) Dementia in Alzheimer's disease with delusions (7) Dementia of the Alzheimer's type with early onset with behavioral disturbance (8) Major neurocognitive disorder (9) Major depressive disorder, recurrent episode (10) Mild cognitive impairment MICHAEL MCKEON MD Jun 07, 2021 21:31
[2021-06-08 06:09] VITALS: BP 126/78
[2021-06-08] MEDS: POLYETHYLENE GLYCOL 3350 17 GM PACKET. PO SCH (08:45)
[2021-06-08] MEDS: ASCORBIC ACID 500 MG TABLET PO SCH (08:46)
[2021-06-08] MEDS: DIVALPROEX 125 MG CAP.SPRINK PO SCH ×2 (08:46→16:00)
[2021-06-08] MEDS: POTASSIUM CHLORIDE 20 MEQ TABLET.ER. PO SCH (08:46)
[2021-06-08] MEDS: LACTOBACILLUS RHAMNOSUS GG 1 CAPSULE. PO SCH ×2 (08:47→20:39)
[2021-06-08] MEDS: CARBIDOPA/LEVODOPA 25/100MG TABLET PO SCH ×3 (08:47→20:39)
[2021-06-08] MEDS: SENNOSIDES 8.6 MG TABLET PO SCH (08:47)
[2021-06-08] MEDS: QUEtiapine 25 MG TABLET. PO SCH ×4 (08:47→17:50)
[2021-06-08] MEDS: CHOLECALCIFEROL (VITAMIN D3) 1,000 UNIT TABLET PO SCH (08:47)
[2021-06-08] MEDS: SERTRALINE 50 MG TABLET. PO SCH (08:47)
[2021-06-08] MEDS: ASPIRIN CHEWABLE 81 MG TABLET. PO SCH (08:47)
[2021-06-08] MEDS: IPRATROPIUM BROMIDE 0.06% NASAL SPRAY 15ML BOTTLE NS SCH ×2 (08:52→20:53)
[2021-06-08] MEDS: NICOTINE 7MG PATCH. TD SCH (08:58)
[2021-06-08] MEDS ORDERED: DIVALPROEX 125 MG CAP.SPRINK PO SCH (09:00)
[2021-06-08 16:05] VITALS: BP 135/70
[2021-06-08] MEDS: ATORVASTATIN CALCIUM 10 MG TABLET. PO SCH (20:39)
--- NOTE | 2021-06-08 21:31 | PDOC ---
Exam Note: Daren Note: Please also refer to the separate dictated note~for this date of service dictated separately.~Patient seen individually. Discussed the patient with Nursing staff reviewed the chart.~Reviewed interim history and current functioning. Reviewed vital signs,~Labs/ Radiology~and current medications noted below. Continue current treatment with the changes noted in the dictated addendum note Assessment: Vital Signs/I&O: Vital Signs Date Time Temp Pulse Resp B/P (MAP) Pulse Ox O2 Delivery O2 Flow Rate FiO2 06/08/21 16:05 97.8 91 18 135/70 (91) 98 06/07/21 15:45 Room Air I & O 06/07/21 06/07/21 06/08/21 14:59 22:59 06:59 Intake Total 360 ml 360 ml Balance 360 ml 360 ml Current Medications: Meds: Current Medications Medications (Trade) Dose Ordered Sig/Daisy Route PRN Reason Start Time Stop Time Status Last Admin Dose Admin Acetaminophen (Tylenol) 650 mg PRN Q6HRS PRN PO MILD PAIN / TEMP > 100.3'F 05/11/21 16:15 Multi-Ingredient Ointment (Analgesic [place]) 1 eva PRN QID PRN TP MUSCLE PAIN 05/11/21 16:15 Al Hydroxide/Mg Hydroxide (Mylanta Plus Xs) 15 ml PRN AFTMEALHC PRN PO DYSPEPSIA 05/11/21 16:15 Magnesium Hydroxide (Milk Of Magnesia) 2,400 mg PRN QHS PRN PO CONSTIPATION 05/11/21 16:15 Nicotine (Nicoderm Cq 14mg Patch) 1 patch DAILY TD 05/12/21 09:00 05/30/21 17:27 DC 05/29/21 08:46 Ascorbic Acid (Vitamin C) 500 mg DAILY PO 05/12/21 09:00 06/08/21 08:46 Aspirin (Aspirin Chewable) 81 mg DAILY PO 05/12/21 09:00 06/08/21 08:47 Nicotine (Nicoderm Cq 14mg Patch) 1 patch DAILY TD 05/12/21 09:00 UNV Potassium Chloride (Klor-Con) 40 meq DAILY PO 05/12/21 09:00 06/08/21 08:46 Sennosides (Senna) 8.6 mg DAILY PO 05/12/21 09:00 06/08/21 08:47 Sertraline HCl (Zoloft) 125 mg DAILY PO 05/12/21 09:00 05/18/21 18:20 DC 05/18/21 08:59 Vitamin D (Vitamin D3) 1,000 unit DAILY PO 05/12/21 09:00 06/08/21 08:47 Cyanocobalamin (Vitamin B-12) 1,000 mcg [id number] PO 05/12/21 09:00 05/12/21 08:19 Polyethylene Glycol (miraLAX) 17 gm DAILY PO 05/12/21 09:00 06/08/21 08:45 Atorvastatin Calcium (Lipitor) 10 mg QHS PO 05/12/21 21:00 06/08/21 20:39 Quetiapine Fumarate (SEROquel) 25 mg PRN BID PRN PO AGITATION 05/12/21 07:15 05/19/21 19:14 DC 05/19/21 09:35 Divalproex Sodium (Depakote Sprinkles) 125 mg [id number] PO 05/12/21 09:00 05/12/21 16:01 DC 05/12/21 08:19 Ipratropium [place] (Atrovent Nasal) 1 spray BID NS 05/12/21 09:00 06/08/21 20:53 Divalproex Sodium (Depakote Sprinkles) 250 mg [id number] PO 05/12/21 16:00 05/16/21 18:09 DC 05/16/21 15:00 Cefdinir (Omnicef) 300 mg BID PO 05/14/21 21:00 05/20/21 22:00 DC 05/20/21 21:00 Lactobacillus Rhamnosus (Culturelle) 1 cap BID PO 05/14/21 21:00 06/08/21 20:39 Carbidopa/Levodopa (Sinemet 25/100) 1 tab TID PO 05/15/21 21:00 06/08/21 20:39 Divalproex Sodium (Depakote Sprinkles) 375 mg [id number] PO 05/17/21 09:00 05/27/21 19:14 DC 05/27/21 14:52 Sertraline HCl (Zoloft) 150 mg DAILY PO 05/19/21 09:00 06/01/21 11:53 DC 06/01/21 09:01 Quetiapine Fumarate (SEROquel) 25 mg 0900,1700 PO 05/20/21 09:00 05/23/21 18:17 DC 05/23/21 17:00 Olanzapine (ZyPREXA ZYDIS) 2.5 mg PRN Q2HR PRN PO PSYCHOSIS 05/20/21 10:00 06/01/21 20:10 Quetiapine Fumarate (SEROquel) 25 mg 0900,1300,1700 PO 05/24/21 09:00 05/25/21 11:57 DC 05/25/21 09:00 Quetiapine Fumarate (SEROquel) 25 mg 0900,1200,1500,1800 PO 05/25/21 12:00 06/08/21 17:50 Divalproex Sodium (Depakote Sprinkles) 500 mg BID94 PO 05/28/21 09:00 06/07/21 17:03 DC 06/07/21 08:54 Nicotine (Nicoderm Cq 7mg Patch) 1 patch DAILY TD 05/31/21 09:00 06/08/21 08:58 Sertraline HCl (Zoloft) 175 mg DAILY PO 06/02/21 09:00 06/08/21 08:47 Divalproex Sodium (Depakote Sprinkles) 250 mg [id number] PO 06/08/21 09:00 06/07/21 17:07 DC Divalproex Sodium (Depakote Sprinkles) 250 mg BID94 PO 06/07/21 17:15 06/08/21 16:00 I have reviewed the current psychotropics carefully including drug interactions. Risk benefit ratio favors no change other than as noted in my dictated progress note. Diagnosis: Problems: (1) Impulse control disorder, unspecified (2) Anxiety disorder, unspecified (3) Dementia, vascular, with depression (4) Dementia, vascular, with delusions (5) Dementia in Alzheimer's disease with depression (6) Dementia in Alzheimer's disease with delusions (7) Dementia of the Alzheimer's type with early onset with behavioral disturbance (8) Major neurocognitive disorder (9) Major depressive disorder, recurrent episode (10) Mild cognitive impairment MICHAEL MCKEON MD Jun 08, 2021 21:31
[2021-06-09 06:16] LABS: BASO % 1 % (0-3); EOS % 1 % (0-3); HEMATOCRIT 37.3 % (39.0-53.0); HEMOGLOBIN 12.7 g/dL (13.0-17.5); LYMPH # 0.9 x10^3/uL (1.0-4.8); LYMPH % 18 % (24-48); MEAN CORPUSCULAR HEMOGLOBIN 33 pg (25-35); MEAN CORPUSCULAR HGB CONC 34 g/dL (31-37); MEAN CORPUSCULAR VOLUME 96 fL (79-100); MONO # 0.5 x10^3/uL (0.0-1.1); MONO % 10 % (0-9); NEUT # 3.5 x10^3uL (1.8-7.7); NEUT % 70 % (31-73); PLATELET COUNT 104 x10^3/uL (140-400); RED BLOOD COUNT 3.87 x10^6/uL (4.30-5.70); RED CELL DISTRIBUTION WIDTH 14.9 % (11.5-14.5)
[2021-06-09 06:22] VITALS: BP 141/84
--- NOTE | 2021-06-09 07:14 | PDOC ---
Exam Note: Daren Note: This note is a late entry for 06/07/2021 covers elements not covered in my initial note. Subjective: The patient was seen individually on 06/07/2021, discussed and reviewed the chart with Corinne MATIAS. The patient slept 7-1/4 hours previous night. I met with him in his room. He is pleasant. Platelets are trending down and we will reduce the Depakote from 500 mg b.i.d. down to 250 mg b.i.d. and check CBC/platelet counts every 2 days x3 and see we if can reverse the trend failing which we might have to stop the Depakote. The patient was otherwise on Seroquel and Sinemet as well. Review of Systems: Ambulation impaired, in wheelchair. No CV, , pulmonary, eye system symptoms on review. Mental Status Exam: The patient is oriented to himself and situation. Speech coherent, rapid at times, difficult to understand. Abstraction fair. Computation impaired. Language function intact. Attention span short. Mood and affect somewhat labile. Laboratory Data: Reviewed. 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 Anxiety disorder unspecified. Impulse control disorder unspecified. Plan: No change from initial note. Adjust as clinically indicated. Assessment: Vital Signs/I&O: Vital Signs Date Time Temp Pulse Resp B/P (MAP) Pulse Ox O2 Delivery O2 Flow Rate FiO2 06/09/21 06:22 97.2 63 20 141/84 (103) 97 06/07/21 15:45 Room Air I & O 06/08/21 06/08/21 06/09/21 15:00 23:00 07:00 Intake Total 720 ml 580 ml Balance 720 ml 580 ml Labs: Laboratory Tests Test 06/09/21 06:10 White Blood Count 5.0 x10^3/uL (4.0-11.0) Red Blood Count 3.87 x10^6/uL (4.30-5.70) L Hemoglobin 12.7 g/dL (13.0-17.5) L Hematocrit 37.3 % (39.0-53.0) L Mean Corpuscular Volume 96 fL (79-100) Mean Corpuscular Hemoglobin 33 pg (25-35) Mean Corpuscular Hemoglobin Concent 34 g/dL (31-37) Red Cell Distribution Width 14.9 % (11.5-14.5) H Platelet Count 104 x10^3/uL (140-400) L Neutrophils (%) (Auto) 70 % (31-73) Lymphocytes (%) (Auto) 18 % (24-48) L Monocytes (%) (Auto) 10 % (0-9) H Eosinophils (%) (Auto) 1 % (0-3) Basophils (%) (Auto) 1 % (0-3) Neutrophils # (Auto) 3.5 x10^3uL (1.8-7.7) Lymphocytes # (Auto) 0.9 x10^3/uL (1.0-4.8) L Monocytes # (Auto) 0.5 x10^3/uL (0.0-1.1) Eosinophils # (Auto) 0.0 x10^3/uL (0.0-0.7) Basophils # (Auto) 0.0 x10^3/uL (0.0-0.2) Current Medications: I have reviewed the current psychotropics carefully including drug interactions. Risk benefit ratio favors no change other than as noted in my dictated progress note. Diagnosis: Problems: (1) Impulse control disorder, unspecified (2) Anxiety disorder, unspecified (3) Dementia, vascular, with depression (4) Dementia, vascular, with delusions (5) Dementia in Alzheimer's disease with depression (6) Dementia in Alzheimer's disease with delusions (7) Dementia of the Alzheimer's type with early onset with behavioral disturbance (8) Major neurocognitive disorder (9) Major depressive disorder, recurrent episode (10) Mild cognitive impairment MICHAEL MCKEON MD Jun 09, 2021 07:13
[2021-06-09] MEDS: NICOTINE 7MG PATCH. TD SCH (08:25)
[2021-06-09] MEDS: POLYETHYLENE GLYCOL 3350 17 GM PACKET. PO SCH (08:25)
[2021-06-09] MEDS: DIVALPROEX 125 MG CAP.SPRINK PO SCH ×2 (08:27→16:00)
[2021-06-09] MEDS: LACTOBACILLUS RHAMNOSUS GG 1 CAPSULE. PO SCH ×2 (08:27→21:03)
[2021-06-09] MEDS: CARBIDOPA/LEVODOPA 25/100MG TABLET PO SCH ×3 (08:27→21:03)
[2021-06-09] MEDS: ASPIRIN CHEWABLE 81 MG TABLET. PO SCH (08:27)
[2021-06-09] MEDS: CHOLECALCIFEROL (VITAMIN D3) 1,000 UNIT TABLET PO SCH (08:28)
[2021-06-09] MEDS: ASCORBIC ACID 500 MG TABLET PO SCH (08:28)
[2021-06-09] MEDS: SENNOSIDES 8.6 MG TABLET PO SCH (08:28)
[2021-06-09] MEDS: POTASSIUM CHLORIDE 20 MEQ TABLET.ER. PO SCH (08:28)
[2021-06-09] MEDS: CYANOCOBALAMIN (VITAMIN B-12) 1,000 MCG TABLET. PO SCH (08:29)
[2021-06-09] MEDS: QUEtiapine 25 MG TABLET. PO SCH ×4 (08:29→18:00)
[2021-06-09] MEDS: SERTRALINE 50 MG TABLET. PO SCH (08:29)
[2021-06-09] MEDS: IPRATROPIUM BROMIDE 0.06% NASAL SPRAY 15ML BOTTLE NS SCH ×2 (09:00→21:05)
[2021-06-09 15:39] VITALS: BP 149/75
[2021-06-09] MEDS: ATORVASTATIN CALCIUM 10 MG TABLET. PO SCH (21:03)
--- NOTE | 2021-06-09 21:20 | PDOC ---
Exam Note: Daren Note: Please also refer to the separate dictated note~for this date of service dictated separately.~Patient seen individually. Discussed the patient with Nursing staff reviewed the chart.~Reviewed interim history and current functioning. Reviewed vital signs,~Labs/ Radiology~and current medications noted below. Continue current treatment with the changes noted in the dictated addendum note Assessment: Vital Signs/I&O: Vital Signs Date Time Temp Pulse Resp B/P (MAP) Pulse Ox O2 Delivery O2 Flow Rate FiO2 06/09/21 15:39 98.7 86 14 149/75 (99) 95 Room Air I & O 06/08/21 06/08/21 06/09/21 15:00 23:00 07:00 Intake Total 720 ml 580 ml Balance 720 ml 580 ml Labs: Laboratory Tests Test 06/09/21 06:10 06/09/21 15:41 White Blood Count 5.0 x10^3/uL (4.0-11.0) Red Blood Count 3.87 x10^6/uL (4.30-5.70) L Hemoglobin 12.7 g/dL (13.0-17.5) L Hematocrit 37.3 % (39.0-53.0) L Mean Corpuscular Volume 96 fL (79-100) Mean Corpuscular Hemoglobin 33 pg (25-35) Mean Corpuscular Hemoglobin Concent 34 g/dL (31-37) Red Cell Distribution Width 14.9 % (11.5-14.5) H Platelet Count 104 x10^3/uL (140-400) L Neutrophils (%) (Auto) 70 % (31-73) Lymphocytes (%) (Auto) 18 % (24-48) L Monocytes (%) (Auto) 10 % (0-9) H Eosinophils (%) (Auto) 1 % (0-3) Basophils (%) (Auto) 1 % (0-3) Neutrophils # (Auto) 3.5 x10^3uL (1.8-7.7) Lymphocytes # (Auto) 0.9 x10^3/uL (1.0-4.8) L Monocytes # (Auto) 0.5 x10^3/uL (0.0-1.1) Eosinophils # (Auto) 0.0 x10^3/uL (0.0-0.7) Basophils # (Auto) 0.0 x10^3/uL (0.0-0.2) SARS-CoV-2 RNA (SANDRA) Negative (Negative) Current Medications: Meds: Laboratory Tests Test 06/09/21 06:10 06/09/21 15:41 White Blood Count 5.0 x10^3/uL Red Blood Count 3.87 x10^6/uL Hemoglobin 12.7 g/dL Hematocrit 37.3 % Mean Corpuscular Volume 96 fL Mean Corpuscular Hemoglobin 33 pg Mean Corpuscular Hemoglobin Concent 34 g/dL Red Cell Distribution Width 14.9 % Platelet Count 104 x10^3/uL Neutrophils (%) (Auto) 70 % Lymphocytes (%) (Auto) 18 % Monocytes (%) (Auto) 10 % Eosinophils (%) (Auto) 1 % Basophils (%) (Auto) 1 % Neutrophils # (Auto) 3.5 x10^3uL Lymphocytes # (Auto) 0.9 x10^3/uL Monocytes # (Auto) 0.5 x10^3/uL Eosinophils # (Auto) 0.0 x10^3/uL Basophils # (Auto) 0.0 x10^3/uL SARS-CoV-2 RNA (SANDRA) Negative Current Medications Medications (Trade) Dose Ordered Sig/Daisy Route PRN Reason Start Time Stop Time Status Last Admin Dose Admin Acetaminophen (Tylenol) 650 mg PRN Q6HRS PRN PO MILD PAIN / TEMP > 100.3'F 05/11/21 16:15 Multi-Ingredient Ointment (Analgesic [place]) 1 eva PRN QID PRN TP MUSCLE PAIN 05/11/21 16:15 Al Hydroxide/Mg Hydroxide (Mylanta Plus Xs) 15 ml PRN AFTMEALHC PRN PO DYSPEPSIA 05/11/21 16:15 Magnesium Hydroxide (Milk Of Magnesia) 2,400 mg PRN QHS PRN PO CONSTIPATION 05/11/21 16:15 Nicotine (Nicoderm Cq 14mg Patch) 1 patch DAILY TD 05/12/21 09:00 05/30/21 17:27 DC 05/29/21 08:46 Ascorbic Acid (Vitamin C) 500 mg DAILY PO 05/12/21 09:00 06/09/21 08:28 Aspirin (Aspirin Chewable) 81 mg DAILY PO 05/12/21 09:00 06/09/21 08:27 Nicotine (Nicoderm Cq 14mg Patch) 1 patch DAILY TD 05/12/21 09:00 UNV Potassium Chloride (Klor-Con) 40 meq DAILY PO 05/12/21 09:00 06/09/21 08:28 Sennosides (Senna) 8.6 mg DAILY PO 05/12/21 09:00 06/09/21 08:28 Sertraline HCl (Zoloft) 125 mg DAILY PO 05/12/21 09:00 05/18/21 18:20 DC 05/18/21 08:59 Vitamin D (Vitamin D3) 1,000 unit DAILY PO 05/12/21 09:00 06/09/21 08:28 Cyanocobalamin (Vitamin B-12) 1,000 mcg [id number] PO 05/12/21 09:00 06/09/21 08:29 Polyethylene Glycol (miraLAX) 17 gm DAILY PO 05/12/21 09:00 06/09/21 08:25 Atorvastatin Calcium (Lipitor) 10 mg QHS PO 05/12/21 21:00 06/09/21 21:03 Quetiapine Fumarate (SEROquel) 25 mg PRN BID PRN PO AGITATION 05/12/21 07:15 05/19/21 19:14 DC 05/19/21 09:35 Divalproex Sodium (Depakote Sprinkles) 125 mg [id number] PO 05/12/21 09:00 05/12/21 16:01 DC 05/12/21 08:19 Ipratropium [place] (Atrovent Nasal) 1 spray BID NS 05/12/21 09:00 06/09/21 21:05 Divalproex Sodium (Depakote Sprinkles) 250 mg [id number] PO 05/12/21 16:00 05/16/21 18:09 DC 05/16/21 15:00 Cefdinir (Omnicef) 300 mg BID PO 05/14/21 21:00 05/20/21 22:00 DC 05/20/21 21:00 Lactobacillus Rhamnosus (Culturelle) 1 cap BID PO 05/14/21 21:00 06/09/21 21:03 Carbidopa/Levodopa (Sinemet 25/100) 1 tab TID PO 05/15/21 21:00 06/09/21 21:03 Divalproex Sodium (Depakote Sprinkles) 375 mg [id number] PO 05/17/21 09:00 05/27/21 19:14 DC 05/27/21 14:52 Sertraline HCl (Zoloft) 150 mg DAILY PO 05/19/21 09:00 06/01/21 11:53 DC 06/01/21 09:01 Quetiapine Fumarate (SEROquel) 25 mg 0900,1700 PO 05/20/21 09:00 05/23/21 18:17 DC 05/23/21 17:00 Olanzapine (ZyPREXA ZYDIS) 2.5 mg PRN Q2HR PRN PO PSYCHOSIS 05/20/21 10:00 06/01/21 20:10 Quetiapine Fumarate (SEROquel) 25 mg 0900,1300,1700 PO 05/24/21 09:00 05/25/21 11:57 DC 05/25/21 09:00 Quetiapine Fumarate (SEROquel) 25 mg 0900,1200,1500,1800 PO 05/25/21 12:00 06/09/21 18:00 Divalproex Sodium (Depakote Sprinkles) 500 mg [id number] PO 05/28/21 09:00 06/07/21 17:03 DC 06/07/21 08:54 Nicotine (Nicoderm Cq 7mg Patch) 1 patch DAILY TD 05/31/21 09:00 06/09/21 08:25 Sertraline HCl (Zoloft) 175 mg DAILY PO 06/02/21 09:00 06/09/21 08:29 Divalproex Sodium (Depakote Sprinkles) 250 mg [id number] PO 06/08/21 09:00 06/07/21 17:07 DC Divalproex Sodium (Depakote Sprinkles) 250 mg BID94 PO 06/07/21 17:15 06/09/21 16:00 I have reviewed the current psychotropics carefully including drug interactions. Risk benefit ratio favors no change other than as noted in my dictated progress note. Diagnosis: Problems: (1) Impulse control disorder, unspecified (2) Anxiety disorder, unspecified (3) Dementia, vascular, with depression (4) Dementia, vascular, with delusions (5) Dementia in Alzheimer's disease with depression (6) Dementia in Alzheimer's disease with delusions (7) Dementia of the Alzheimer's type with early onset with behavioral disturbance (8) Major neurocognitive disorder (9) Mild cognitive impairment (10) Major depressive disorder, severe MICHAEL MCKEON MD Jun 09, 2021 21:19
[2021-06-10 06:21] VITALS: BP 137/80
[2021-06-10] MEDS: QUEtiapine 25 MG TABLET. PO SCH ×4 (08:43→17:27)
[2021-06-10] MEDS: POLYETHYLENE GLYCOL 3350 17 GM PACKET. PO SCH (08:43)
[2021-06-10] MEDS: NICOTINE 7MG PATCH. TD SCH (08:43)
[2021-06-10] MEDS: CARBIDOPA/LEVODOPA 25/100MG TABLET PO SCH ×3 (08:44→20:35)
[2021-06-10] MEDS: ASPIRIN CHEWABLE 81 MG TABLET. PO SCH (08:44)
[2021-06-10] MEDS: POTASSIUM CHLORIDE 20 MEQ TABLET.ER. PO SCH (08:44)
[2021-06-10] MEDS: SERTRALINE 50 MG TABLET. PO SCH (08:45)
[2021-06-10] MEDS: DIVALPROEX 125 MG CAP.SPRINK PO SCH ×2 (08:45→15:16)
[2021-06-10] MEDS: SENNOSIDES 8.6 MG TABLET PO SCH (08:45)
[2021-06-10] MEDS: ASCORBIC ACID 500 MG TABLET PO SCH (08:45)
[2021-06-10] MEDS: CHOLECALCIFEROL (VITAMIN D3) 1,000 UNIT TABLET PO SCH (08:45)
[2021-06-10] MEDS: LACTOBACILLUS RHAMNOSUS GG 1 CAPSULE. PO SCH ×2 (08:45→20:35)
[2021-06-10] MEDS: IPRATROPIUM BROMIDE 0.06% NASAL SPRAY 15ML BOTTLE NS SCH ×2 (08:46→20:35)
[2021-06-10 15:39] VITALS: BP 101/64
[2021-06-10] MEDS: ATORVASTATIN CALCIUM 10 MG TABLET. PO SCH (20:35)
--- NOTE | 2021-06-10 21:59 | PDOC ---
Exam Note: Daren Note: Please also refer to the separate dictated note~for this date of service dictated separately.~Patient seen individually. Discussed the patient with Nursing staff reviewed the chart.~Reviewed interim history and current functioning. Reviewed vital signs,~Labs/ Radiology~and current medications noted below. Continue current treatment with the changes noted in the dictated addendum note Assessment: Vital Signs/I&O: Vital Signs Date Time Temp Pulse Resp B/P (MAP) Pulse Ox O2 Delivery O2 Flow Rate FiO2 06/10/21 15:39 98.2 83 16 101/64 (76) 97 06/10/21 06:21 Room Air I & O 06/09/21 06/09/21 06/10/21 15:00 23:00 07:00 Intake Total 580 ml 360 ml Balance 580 ml 360 ml Current Medications: Meds: Current Medications Medications (Trade) Dose Ordered Sig/Daisy Route PRN Reason Start Time Stop Time Status Last Admin Dose Admin Acetaminophen (Tylenol) 650 mg PRN Q6HRS PRN PO MILD PAIN / TEMP > 100.3'F 05/11/21 16:15 Multi-Ingredient Ointment (Analgesic [place]) 1 eva PRN QID PRN TP MUSCLE PAIN 05/11/21 16:15 Al Hydroxide/Mg Hydroxide (Mylanta Plus Xs) 15 ml PRN AFTMEALHC PRN PO DYSPEPSIA 05/11/21 16:15 Magnesium Hydroxide (Milk Of Magnesia) 2,400 mg PRN QHS PRN PO CONSTIPATION 05/11/21 16:15 Nicotine (Nicoderm Cq 14mg Patch) 1 patch DAILY TD 05/12/21 09:00 05/30/21 17:27 DC 05/29/21 08:46 Ascorbic Acid (Vitamin C) 500 mg DAILY PO 05/12/21 09:00 06/10/21 08:45 Aspirin (Aspirin Chewable) 81 mg DAILY PO 05/12/21 09:00 06/10/21 08:44 Nicotine (Nicoderm Cq 14mg Patch) 1 patch DAILY TD 05/12/21 09:00 UNV Potassium Chloride (Klor-Con) 40 meq DAILY PO 05/12/21 09:00 06/10/21 08:44 Sennosides (Senna) 8.6 mg DAILY PO 05/12/21 09:00 06/10/21 08:45 Sertraline HCl (Zoloft) 125 mg DAILY PO 05/12/21 09:00 05/18/21 18:20 DC 05/18/21 08:59 Vitamin D (Vitamin D3) 1,000 unit DAILY PO 05/12/21 09:00 06/10/21 08:45 Cyanocobalamin (Vitamin B-12) 1,000 mcg [id number] PO 05/12/21 09:00 06/09/21 08:29 Polyethylene Glycol (miraLAX) 17 gm DAILY PO 05/12/21 09:00 06/10/21 08:43 Atorvastatin Calcium (Lipitor) 10 mg QHS PO 05/12/21 21:00 06/10/21 20:35 Quetiapine Fumarate (SEROquel) 25 mg PRN BID PRN PO AGITATION 05/12/21 07:15 05/19/21 19:14 DC 05/19/21 09:35 Divalproex Sodium (Depakote Sprinkles) 125 mg [id number] PO 05/12/21 09:00 05/12/21 16:01 DC 05/12/21 08:19 Ipratropium [place] (Atrovent Nasal) 1 spray BID NS 05/12/21 09:00 06/10/21 20:35 Divalproex Sodium (Depakote Sprinkles) 250 mg [id number] PO 05/12/21 16:00 05/16/21 18:09 DC 05/16/21 15:00 Cefdinir (Omnicef) 300 mg BID PO 05/14/21 21:00 05/20/21 22:00 DC 05/20/21 21:00 Lactobacillus Rhamnosus (Culturelle) 1 cap BID PO 05/14/21 21:00 06/10/21 20:35 Carbidopa/Levodopa (Sinemet 25/100) 1 tab TID PO 05/15/21 21:00 06/10/21 20:35 Divalproex Sodium (Depakote Sprinkles) 375 mg [id number] PO 05/17/21 09:00 05/27/21 19:14 DC 05/27/21 14:52 Sertraline HCl (Zoloft) 150 mg DAILY PO 05/19/21 09:00 06/01/21 11:53 DC 06/01/21 09:01 Quetiapine Fumarate (SEROquel) 25 mg 0900,1700 PO 05/20/21 09:00 05/23/21 18:17 DC 05/23/21 17:00 Olanzapine (ZyPREXA ZYDIS) 2.5 mg PRN Q2HR PRN PO PSYCHOSIS 05/20/21 10:00 06/01/21 20:10 Quetiapine Fumarate (SEROquel) 25 mg 0900,1300,1700 PO 05/24/21 09:00 05/25/21 11:57 DC 05/25/21 09:00 Quetiapine Fumarate (SEROquel) 25 mg 0900,1200,1500,1800 PO 05/25/21 12:00 06/10/21 17:27 Divalproex Sodium (Depakote Sprinkles) 500 mg BID94 PO 05/28/21 09:00 06/07/21 17:03 DC 06/07/21 08:54 Nicotine (Nicoderm Cq 7mg Patch) 1 patch DAILY TD 05/31/21 09:00 06/10/21 08:43 Sertraline HCl (Zoloft) 175 mg DAILY PO 06/02/21 09:00 06/10/21 08:45 Divalproex Sodium (Depakote Sprinkles) 250 mg BID94 PO 06/08/21 09:00 06/07/21 17:07 DC Divalproex Sodium (Depakote Sprinkles) 250 mg BID94 PO 06/07/21 17:15 06/10/21 15:16 I have reviewed the current psychotropics carefully including drug interactions. Risk benefit ratio favors no change other than as noted in my dictated progress note. Diagnosis: Problems: (1) Impulse control disorder, unspecified (2) Major depressive disorder, severe (3) Anxiety disorder, unspecified (4) Dementia, vascular, with depression (5) Dementia, vascular, with delusions (6) Dementia in Alzheimer's disease with depression (7) Dementia in Alzheimer's disease with delusions (8) Dementia of the Alzheimer's type with early onset with behavioral disturbance (9) Major neurocognitive disorder (10) Mild cognitive impairment MICHAEL MCKEON MD Jun 10, 2021 21:59
[2021-06-11 06:01] VITALS: BP 152/84
[2021-06-11 08:08] LABS: BASO % 0 % (0-3); EOS % 0 % (0-3); HEMATOCRIT 38.9 % (39.0-53.0); HEMOGLOBIN 13.3 g/dL (13.0-17.5); LYMPH # 0.6 x10^3/uL (1.0-4.8); LYMPH % 6 % (24-48); MEAN CORPUSCULAR HEMOGLOBIN 33 pg (25-35); MEAN CORPUSCULAR HGB CONC 34 g/dL (31-37); MEAN CORPUSCULAR VOLUME 95 fL (79-100); MONO # 0.8 x10^3/uL (0.0-1.1); MONO % 8 % (0-9); NEUT # 8.3 x10^3uL (1.8-7.7); NEUT % 85 % (31-73); PLATELET COUNT 123 x10^3/uL (140-400); RED BLOOD COUNT 4.08 x10^6/uL (4.30-5.70); RED CELL DISTRIBUTION WIDTH 14.9 % (11.5-14.5); WHITE BLOOD COUNT 9.8 x10^3/uL (4.0-11.0)
[2021-06-11] MEDS: POLYETHYLENE GLYCOL 3350 17 GM PACKET. PO SCH (08:27)
[2021-06-11] MEDS: NICOTINE 7MG PATCH. TD SCH (08:28)
[2021-06-11] MEDS: DIVALPROEX 125 MG CAP.SPRINK PO SCH ×2 (08:29→16:00)
[2021-06-11] MEDS: SERTRALINE 50 MG TABLET. PO SCH (08:29)
[2021-06-11] MEDS: CHOLECALCIFEROL (VITAMIN D3) 1,000 UNIT TABLET PO SCH (08:29)
[2021-06-11] MEDS: LACTOBACILLUS RHAMNOSUS GG 1 CAPSULE. PO SCH ×2 (08:29→20:25)
[2021-06-11] MEDS: POTASSIUM CHLORIDE 20 MEQ TABLET.ER. PO SCH (08:29)
[2021-06-11] MEDS: CARBIDOPA/LEVODOPA 25/100MG TABLET PO SCH ×3 (08:29→20:25)
[2021-06-11] MEDS: ASCORBIC ACID 500 MG TABLET PO SCH (08:29)
[2021-06-11] MEDS: QUEtiapine 25 MG TABLET. PO SCH ×4 (08:30→18:00)
[2021-06-11] MEDS: SENNOSIDES 8.6 MG TABLET PO SCH (08:30)
[2021-06-11] MEDS: ASPIRIN CHEWABLE 81 MG TABLET. PO SCH (08:30)
[2021-06-11] MEDS: IPRATROPIUM BROMIDE 0.06% NASAL SPRAY 15ML BOTTLE NS SCH ×2 (09:00→20:25)
[2021-06-11 15:29] VITALS: BP 90/60
[2021-06-11] MEDS ORDERED: POLYVINYL ALCOHOL 1.4% OPHTH SOLUTION 15ML BOTTLE. OS PRN (16:00)
[2021-06-11] MEDS: ATORVASTATIN CALCIUM 10 MG TABLET. PO SCH (20:25)
--- NOTE | 2021-06-11 22:24 | PDOC ---
Exam Note: Daren Note: Please also refer to the separate dictated note~for this date of service dictated separately.~Patient seen individually. Discussed the patient with Nursing staff reviewed the chart.~Reviewed interim history and current functioning. Reviewed vital signs,~Labs/ Radiology~and current medications noted below. Continue current treatment with the changes noted in the dictated addendum note Assessment: Vital Signs/I&O: Vital Signs Date Time Temp Pulse Resp B/P (MAP) Pulse Ox O2 Delivery O2 Flow Rate FiO2 06/11/21 15:29 98.1 87 16 90/60 (70) 96 06/10/21 06:21 Room Air I & O 06/10/21 06/10/21 06/11/21 15:00 23:00 07:00 Intake Total 600 ml 720 ml Balance 600 ml 720 ml Labs: Laboratory Tests Test 06/11/21 07:30 White Blood Count 9.8 x10^3/uL (4.0-11.0) Red Blood Count 4.08 x10^6/uL (4.30-5.70) L Hemoglobin 13.3 g/dL (13.0-17.5) Hematocrit 38.9 % (39.0-53.0) L Mean Corpuscular Volume 95 fL (79-100) Mean Corpuscular Hemoglobin 33 pg (25-35) Mean Corpuscular Hemoglobin Concent 34 g/dL (31-37) Red Cell Distribution Width 14.9 % (11.5-14.5) H Platelet Count 123 x10^3/uL (140-400) L Neutrophils (%) (Auto) 85 % (31-73) H Lymphocytes (%) (Auto) 6 % (24-48) L Monocytes (%) (Auto) 8 % (0-9) Eosinophils (%) (Auto) 0 % (0-3) Basophils (%) (Auto) 0 % (0-3) Neutrophils # (Auto) 8.3 x10^3uL (1.8-7.7) H Lymphocytes # (Auto) 0.6 x10^3/uL (1.0-4.8) L Monocytes # (Auto) 0.8 x10^3/uL (0.0-1.1) Eosinophils # (Auto) 0.0 x10^3/uL (0.0-0.7) Basophils # (Auto) 0.0 x10^3/uL (0.0-0.2) Current Medications: Meds: Laboratory Tests Test 06/11/21 07:30 White Blood Count 9.8 x10^3/uL Red Blood Count 4.08 x10^6/uL Hemoglobin 13.3 g/dL Hematocrit 38.9 % Mean Corpuscular Volume 95 fL Mean Corpuscular Hemoglobin 33 pg Mean Corpuscular Hemoglobin Concent 34 g/dL Red Cell Distribution Width 14.9 % Platelet Count 123 x10^3/uL Neutrophils (%) (Auto) 85 % Lymphocytes (%) (Auto) 6 % Monocytes (%) (Auto) 8 % Eosinophils (%) (Auto) 0 % Basophils (%) (Auto) 0 % Neutrophils # (Auto) 8.3 x10^3uL Lymphocytes # (Auto) 0.6 x10^3/uL Monocytes # (Auto) 0.8 x10^3/uL Eosinophils # (Auto) 0.0 x10^3/uL Basophils # (Auto) 0.0 x10^3/uL Current Medications Medications (Trade) Dose Ordered Sig/Daisy Route PRN Reason Start Time Stop Time Status Last Admin Dose Admin Acetaminophen (Tylenol) 650 mg PRN Q6HRS PRN PO MILD PAIN / TEMP > 100.3'F 05/11/21 16:15 Multi-Ingredient Ointment (Analgesic [place]) 1 eva PRN QID PRN TP MUSCLE PAIN 05/11/21 16:15 Al Hydroxide/Mg Hydroxide (Mylanta Plus Xs) 15 ml PRN AFTMEALHC PRN PO DYSPEPSIA 05/11/21 16:15 Magnesium Hydroxide (Milk Of Magnesia) 2,400 mg PRN QHS PRN PO CONSTIPATION 05/11/21 16:15 Nicotine (Nicoderm Cq 14mg Patch) 1 patch DAILY TD 05/12/21 09:00 05/30/21 17:27 DC 05/29/21 08:46 Ascorbic Acid (Vitamin C) 500 mg DAILY PO 05/12/21 09:00 06/11/21 08:29 Aspirin (Aspirin Chewable) 81 mg DAILY PO 05/12/21 09:00 06/11/21 08:30 Nicotine (Nicoderm Cq 14mg Patch) 1 patch DAILY TD 05/12/21 09:00 UNV Potassium Chloride (Klor-Con) 40 meq DAILY PO 05/12/21 09:00 06/11/21 08:29 Sennosides (Senna) 8.6 mg DAILY PO 05/12/21 09:00 06/11/21 08:30 Sertraline HCl (Zoloft) 125 mg DAILY PO 05/12/21 09:00 05/18/21 18:20 DC 05/18/21 08:59 Vitamin D (Vitamin D3) 1,000 unit DAILY PO 05/12/21 09:00 06/11/21 08:29 Cyanocobalamin (Vitamin B-12) 1,000 mcg [id number] PO 05/12/21 09:00 06/09/21 08:29 Polyethylene Glycol (miraLAX) 17 gm DAILY PO 05/12/21 09:00 06/11/21 08:27 Atorvastatin Calcium (Lipitor) 10 mg QHS PO 05/12/21 21:00 06/11/21 20:25 Quetiapine Fumarate (SEROquel) 25 mg PRN BID PRN PO AGITATION 05/12/21 07:15 05/19/21 19:14 DC 05/19/21 09:35 Divalproex Sodium (Depakote Sprinkles) 125 mg [id number] PO 05/12/21 09:00 05/12/21 16:01 DC 05/12/21 08:19 Ipratropium [place] (Atrovent Nasal) 1 spray BID NS 05/12/21 09:00 06/11/21 20:25 Divalproex Sodium (Depakote Sprinkles) 250 mg [id number] PO 05/12/21 16:00 05/16/21 18:09 DC 05/16/21 15:00 Cefdinir (Omnicef) 300 mg BID PO 05/14/21 21:00 05/20/21 22:00 DC 05/20/21 21:00 Lactobacillus Rhamnosus (Culturelle) 1 cap BID PO 05/14/21 21:00 06/11/21 20:25 Carbidopa/Levodopa (Sinemet 25/100) 1 tab TID PO 05/15/21 21:00 06/11/21 20:25 Divalproex Sodium (Depakote Sprinkles) 375 mg BID94 PO 05/17/21 09:00 05/27/21 19:14 DC 05/27/21 14:52 Sertraline HCl (Zoloft) 150 mg DAILY PO 05/19/21 09:00 06/01/21 11:53 DC 06/01/21 09:01 Quetiapine Fumarate (SEROquel) 25 mg 0900,1700 PO 05/20/21 09:00 05/23/21 18:17 DC 05/23/21 17:00 Olanzapine (ZyPREXA ZYDIS) 2.5 mg PRN Q2HR PRN PO PSYCHOSIS 05/20/21 10:00 06/01/21 20:10 Quetiapine Fumarate (SEROquel) 25 mg 0900,1300,1700 PO 05/24/21 09:00 05/25/21 11:57 DC 05/25/21 09:00 Quetiapine Fumarate (SEROquel) 25 mg 0900,1200,1500,1800 PO 05/25/21 12:00 06/11/21 18:00 Divalproex Sodium (Depakote Sprinkles) 500 mg BID94 PO 05/28/21 09:00 06/07/21 17:03 DC 06/07/21 08:54 Nicotine (Nicoderm Cq 7mg Patch) 1 patch DAILY TD 05/31/21 09:00 06/11/21 08:28 Sertraline HCl (Zoloft) 175 mg DAILY PO 06/02/21 09:00 06/11/21 08:29 Divalproex Sodium (Depakote Sprinkles) 250 mg [id number] PO 06/08/21 09:00 06/07/21 17:07 DC Divalproex Sodium (Depakote Sprinkles) 250 mg [id number] PO 06/07/21 17:15 06/11/21 16:00 Artificial Tears (Artificial Tears) 1 drop PRN Q4HRS PRN OS DRY EYE 06/11/21 16:00 06/11/21 18:00 Current Medications Medications (Trade) Dose Ordered Sig/Daisy Route PRN Reason Start Time Stop Time Status Last Admin Dose Admin Artificial Tears (Artificial Tears) 1 drop PRN Q4HRS PRN OS DRY EYE 06/11/21 16:00 06/11/21 18:00 I have reviewed the current psychotropics carefully including drug interactions. Risk benefit ratio favors no change other than as noted in my dictated progress note. Diagnosis: Problems: (1) Impulse control disorder, unspecified (2) Major depressive disorder, severe (3) Anxiety disorder, unspecified (4) Dementia, vascular, with depression (5) Dementia, vascular, with delusions (6) Dementia in Alzheimer's disease with depression (7) Dementia in Alzheimer's disease with delusions (8) Dementia of the Alzheimer's type with early onset with behavioral disturbance (9) Major neurocognitive disorder (10) Mild cognitive impairment MICHAEL MCKEON MD Jun 11, 2021 22:24
[2021-06-12 06:06] VITALS: BP 114/70
[2021-06-12] MEDS: POLYETHYLENE GLYCOL 3350 17 GM PACKET. PO SCH (08:11)
[2021-06-12] MEDS: ASCORBIC ACID 500 MG TABLET PO SCH (08:12)
[2021-06-12] MEDS: NICOTINE 7MG PATCH. TD SCH (08:12)
[2021-06-12] MEDS: IPRATROPIUM BROMIDE 0.06% NASAL SPRAY 15ML BOTTLE NS SCH ×2 (08:12→20:40)
[2021-06-12] MEDS: DIVALPROEX 125 MG CAP.SPRINK PO SCH ×2 (08:13→16:55)
[2021-06-12] MEDS: SENNOSIDES 8.6 MG TABLET PO SCH (08:13)
[2021-06-12] MEDS: ASPIRIN CHEWABLE 81 MG TABLET. PO SCH (08:13)
[2021-06-12] MEDS: LACTOBACILLUS RHAMNOSUS GG 1 CAPSULE. PO SCH ×2 (08:13→20:40)
[2021-06-12] MEDS: SERTRALINE 50 MG TABLET. PO SCH (08:13)
[2021-06-12] MEDS: CHOLECALCIFEROL (VITAMIN D3) 1,000 UNIT TABLET PO SCH (08:13)
[2021-06-12] MEDS: CARBIDOPA/LEVODOPA 25/100MG TABLET PO SCH ×3 (08:13→20:40)
[2021-06-12] MEDS: QUEtiapine 25 MG TABLET. PO SCH ×4 (08:13→16:55)
[2021-06-12] MEDS: POTASSIUM CHLORIDE 20 MEQ TABLET.ER. PO SCH (08:13)
--- NOTE | 2021-06-12 08:52 | PDOC ---
Exam Note: Daren Note: This note is a late entry for 06/08/2021 covers elements not covered in my initial note. Subjective: The patient was reviewed at treatment team meeting in the morning on 06/08/2021 with Eva Troncoso, Maria Esther Piña (psych social worker), Clara, activity therapy, and Dora MATIAS, discussed and reviewed the chart. Discussed and reviewed his diagnoses, progress at length. Appetite is 100%. Sleeping average 7-1/2 hours. He naps off and on during the day. He is confused at times, felt the year was 2017. No suicidal or homicidal ideation. He has attended one group. He is pleasant, calm. He gets agitated if someone treats him like he is demented which he is not. Review of Systems: Ambulation impaired, in wheelchair. No CV, , pulmonary, eye system symptoms on review. Mental Status Exam: The patient is oriented to himself and situation. Speech coherent. Abstraction fair. Computation impaired. Language function intact. Attention span short. Mood and affect somewhat labile. Laboratory Data: Reviewed. 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 Anxiety disorder unspecified. Impulse control disorder unspecified. Plan: No change from initial note. Adjust as clinically indicated. Assessment: Vital Signs/I&O: Vital Signs Date Time Temp Pulse Resp B/P (MAP) Pulse Ox O2 Delivery O2 Flow Rate FiO2 06/12/21 06:06 98.3 66 16 114/70 (85) 98 Room Air I & O 06/11/21 06/11/21 06/12/21 15:00 23:00 07:00 Intake Total 120 ml 250 ml Balance 120 ml 250 ml Current Medications: Meds: Current Medications Medications (Trade) Dose Ordered Sig/Daisy Route PRN Reason Start Time Stop Time Status Last Admin Dose Admin Artificial Tears (Artificial Tears) 1 drop PRN Q4HRS PRN OS DRY EYE 06/11/21 16:00 06/11/21 18:00 I have reviewed the current psychotropics carefully including drug interactions. Risk benefit ratio favors no change other than as noted in my dictated progress note. Diagnosis: Problems: (1) Impulse control disorder, unspecified (2) Major depressive disorder, severe (3) Anxiety disorder, unspecified (4) Dementia, vascular, with depression (5) Dementia, vascular, with delusions (6) Dementia in Alzheimer's disease with depression (7) Dementia in Alzheimer's disease with delusions (8) Dementia of the Alzheimer's type with early onset with behavioral disturbance (9) Major neurocognitive disorder (10) Mild cognitive impairment MICHAEL MCKEON MD Jun 12, 2021 08:52
--- NOTE | 2021-06-12 09:34 | PDOC ---
Exam Note: Daren Note: This note is a late entry for 06/11/2021 covers elements not covered in my initial note. Subjective: The patient was seen individually on 06/11/2021, discussed and reviewed the chart with Dora MATIAS. The patient slept 8 hours previous night. He complains of dry eyes and he has been started on artificial tears. Review of Systems: Ambulation impaired, in wheelchair. No CV, , pulmonary, eye system symptoms on review. Mental Status Exam: The patient is oriented to himself and situation. Speech coherent. Abstraction fair. Computation impaired. Language function intact. Attention span short. Mood and affect somewhat labile. He is pleasant, cooperative. No suicidal or homicidal ideation. Laboratory Data: Reviewed. 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 Anxiety disorder unspecified. Impulse control disorder unspecified. Plan: No change from initial note. Adjust as clinically indicated. Assessment: Vital Signs/I&O: Vital Signs Date Time Temp Pulse Resp B/P (MAP) Pulse Ox O2 Delivery O2 Flow Rate FiO2 06/12/21 06:06 98.3 66 16 114/70 (85) 98 Room Air I & O 06/11/21 06/11/21 06/12/21 14:59 22:59 06:59 Intake Total 120 ml 250 ml Balance 120 ml 250 ml Current Medications: Meds: Current Medications Medications (Trade) Dose Ordered Sig/Daisy Route PRN Reason Start Time Stop Time Status Last Admin Dose Admin Artificial Tears (Artificial Tears) 1 drop PRN Q4HRS PRN OS DRY EYE 06/11/21 16:00 06/11/21 18:00 I have reviewed the current psychotropics carefully including drug interactions. Risk benefit ratio favors no change other than as noted in my dictated progress note. Diagnosis: Problems: (1) Impulse control disorder, unspecified (2) Anxiety disorder, unspecified (3) Dementia, vascular, with depression (4) Dementia, vascular, with delusions (5) Dementia in Alzheimer's disease with depression (6) Dementia in Alzheimer's disease with delusions (7) Dementia of the Alzheimer's type with early onset with behavioral disturbance (8) Major neurocognitive disorder (9) Mild cognitive impairment MICHAEL MCKEON MD Jun 12, 2021 09:34
[2021-06-12 16:00] VITALS: BP 121/70
[2021-06-12] MEDS: ATORVASTATIN CALCIUM 10 MG TABLET. PO SCH (20:40)
--- NOTE | 2021-06-12 22:08 | PDOC ---
Exam Note: Daren Note: Please also refer to the separate dictated note~for this date of service dictated separately.~Patient seen individually. Discussed the patient with Nursing staff reviewed the chart.~Reviewed interim history and current functioning. Reviewed vital signs,~Labs/ Radiology~and current medications noted below. Continue current treatment with the changes noted in the dictated addendum note Assessment: Vital Signs/I&O: Vital Signs Date Time Temp Pulse Resp B/P (MAP) Pulse Ox O2 Delivery O2 Flow Rate FiO2 06/12/21 16:00 99.0 82 16 121/70 (87) 97 06/12/21 06:06 Room Air I & O 06/11/21 06/11/21 06/12/21 15:00 23:00 07:00 Intake Total 120 ml 250 ml Balance 120 ml 250 ml Current Medications: Meds: Current Medications Medications (Trade) Dose Ordered Sig/Daisy Route PRN Reason Start Time Stop Time Status Last Admin Dose Admin Acetaminophen (Tylenol) 650 mg PRN Q6HRS PRN PO MILD PAIN / TEMP > 100.3'F 05/11/21 16:15 Multi-Ingredient Ointment (Analgesic [place]) 1 eva PRN QID PRN TP MUSCLE PAIN 05/11/21 16:15 Al Hydroxide/Mg Hydroxide (Mylanta Plus Xs) 15 ml PRN AFTMEALHC PRN PO DYSPEPSIA 05/11/21 16:15 Magnesium Hydroxide (Milk Of Magnesia) 2,400 mg PRN QHS PRN PO CONSTIPATION 05/11/21 16:15 Nicotine (Nicoderm Cq 14mg Patch) 1 patch DAILY TD 05/12/21 09:00 05/30/21 17:27 DC 05/29/21 08:46 Ascorbic Acid (Vitamin C) 500 mg DAILY PO 05/12/21 09:00 06/12/21 08:12 Aspirin (Aspirin Chewable) 81 mg DAILY PO 05/12/21 09:00 06/12/21 08:13 Nicotine (Nicoderm Cq 14mg Patch) 1 patch DAILY TD 05/12/21 09:00 UNV Potassium Chloride (Klor-Con) 40 meq DAILY PO 05/12/21 09:00 06/12/21 08:13 Sennosides (Senna) 8.6 mg DAILY PO 05/12/21 09:00 06/12/21 08:13 Sertraline HCl (Zoloft) 125 mg DAILY PO 05/12/21 09:00 05/18/21 18:20 DC 05/18/21 08:59 Vitamin D (Vitamin D3) 1,000 unit DAILY PO 05/12/21 09:00 06/12/21 08:13 Cyanocobalamin (Vitamin B-12) 1,000 mcg [id number] PO 05/12/21 09:00 06/09/21 08:29 Polyethylene Glycol (miraLAX) 17 gm DAILY PO 05/12/21 09:00 06/12/21 08:11 Atorvastatin Calcium (Lipitor) 10 mg QHS PO 05/12/21 21:00 06/12/21 20:40 Quetiapine Fumarate (SEROquel) 25 mg PRN BID PRN PO AGITATION 05/12/21 07:15 05/19/21 19:14 DC 05/19/21 09:35 Divalproex Sodium (Depakote Sprinkles) 125 mg [id number] PO 05/12/21 09:00 05/12/21 16:01 DC 05/12/21 08:19 Ipratropium [place] (Atrovent Nasal) 1 spray BID NS 05/12/21 09:00 06/12/21 20:40 Divalproex Sodium (Depakote Sprinkles) 250 mg BID94 PO 05/12/21 16:00 05/16/21 18:09 DC 05/16/21 15:00 Cefdinir (Omnicef) 300 mg BID PO 05/14/21 21:00 05/20/21 22:00 DC 05/20/21 21:00 Lactobacillus Rhamnosus (Culturelle) 1 cap BID PO 05/14/21 21:00 06/12/21 20:40 Carbidopa/Levodopa (Sinemet 25/100) 1 tab TID PO 05/15/21 21:00 06/12/21 20:40 Divalproex Sodium (Depakote Sprinkles) 375 mg BID94 PO 05/17/21 09:00 05/27/21 19:14 DC 05/27/21 14:52 Sertraline HCl (Zoloft) 150 mg DAILY PO 05/19/21 09:00 06/01/21 11:53 DC 06/01/21 09:01 Quetiapine Fumarate (SEROquel) 25 mg 0900,1700 PO 05/20/21 09:00 05/23/21 18:17 DC 05/23/21 17:00 Olanzapine (ZyPREXA ZYDIS) 2.5 mg PRN Q2HR PRN PO PSYCHOSIS 05/20/21 10:00 06/01/21 20:10 Quetiapine Fumarate (SEROquel) 25 mg 0900,1300,1700 PO 05/24/21 09:00 05/25/21 11:57 DC 05/25/21 09:00 Quetiapine Fumarate (SEROquel) 25 mg 0900,1200,1500,1800 PO 05/25/21 12:00 06/12/21 16:55 Divalproex Sodium (Depakote Sprinkles) 500 mg BID94 PO 05/28/21 09:00 06/07/21 17:03 DC 06/07/21 08:54 Nicotine (Nicoderm Cq 7mg Patch) 1 patch DAILY TD 05/31/21 09:00 06/12/21 08:12 Sertraline HCl (Zoloft) 175 mg DAILY PO 06/02/21 09:00 06/12/21 08:13 Divalproex Sodium (Depakote Sprinkles) 250 mg BID94 PO 06/08/21 09:00 06/07/21 17:07 DC Divalproex Sodium (Depakote Sprinkles) 250 mg BID94 PO 06/07/21 17:15 06/12/21 16:55 Artificial Tears (Artificial Tears) 1 drop PRN Q4HRS PRN OS DRY EYE 06/11/21 16:00 06/11/21 18:00 I have reviewed the current psychotropics carefully including drug interactions. Risk benefit ratio favors no change other than as noted in my dictated progress note. Diagnosis: Problems: (1) Impulse control disorder, unspecified (2) Major depressive disorder, severe (3) Anxiety disorder, unspecified (4) Dementia, vascular, with depression (5) Dementia, vascular, with delusions (6) Dementia in Alzheimer's disease with depression (7) Dementia in Alzheimer's disease with delusions (8) Dementia of the Alzheimer's type with early onset with behavioral disturbance (9) Major neurocognitive disorder (10) Mild cognitive impairment MICHAEL MCKEON MD Jun 12, 2021 22:08
[2021-06-13 06:18] VITALS: BP 129/77
[2021-06-13 06:29] LABS: BASO % 0 % (0-3); EOS # 0.1 x10^3/uL (0.0-0.7); EOS % 1 % (0-3); HEMATOCRIT 38.8 % (39.0-53.0); HEMOGLOBIN 12.7 g/dL (13.0-17.5); LYMPH # 0.9 x10^3/uL (1.0-4.8); LYMPH % 14 % (24-48); MEAN CORPUSCULAR HEMOGLOBIN 32 pg (25-35); MEAN CORPUSCULAR HGB CONC 33 g/dL (31-37); MEAN CORPUSCULAR VOLUME 98 fL (79-100); MONO # 0.5 x10^3/uL (0.0-1.1); MONO % 9 % (0-9); NEUT # 4.7 x10^3uL (1.8-7.7); NEUT % 76 % (31-73); PLATELET COUNT 117 x10^3/uL (140-400); RED BLOOD COUNT 3.95 x10^6/uL (4.30-5.70); RED CELL DISTRIBUTION WIDTH 14.9 % (11.5-14.5); WHITE BLOOD COUNT 6.1 x10^3/uL (4.0-11.0)
[2021-06-13] MEDS: POLYETHYLENE GLYCOL 3350 17 GM PACKET. PO SCH (08:18)
[2021-06-13] MEDS: NICOTINE 7MG PATCH. TD SCH (08:19)
[2021-06-13] MEDS: ASPIRIN CHEWABLE 81 MG TABLET. PO SCH (08:19)
[2021-06-13] MEDS: LACTOBACILLUS RHAMNOSUS GG 1 CAPSULE. PO SCH ×2 (08:20→20:57)
[2021-06-13] MEDS: ASCORBIC ACID 500 MG TABLET PO SCH (08:20)
[2021-06-13] MEDS: POTASSIUM CHLORIDE 20 MEQ TABLET.ER. PO SCH (08:20)
[2021-06-13] MEDS: SERTRALINE 50 MG TABLET. PO SCH (08:25)
[2021-06-13] MEDS: DIVALPROEX 125 MG CAP.SPRINK PO SCH ×2 (08:25→15:58)
[2021-06-13] MEDS: IPRATROPIUM BROMIDE 0.06% NASAL SPRAY 15ML BOTTLE NS SCH ×2 (08:25→20:58)
[2021-06-13] MEDS: CHOLECALCIFEROL (VITAMIN D3) 1,000 UNIT TABLET PO SCH (08:26)
[2021-06-13] MEDS: QUEtiapine 25 MG TABLET. PO SCH ×4 (08:26→17:34)
[2021-06-13] MEDS: SENNOSIDES 8.6 MG TABLET PO SCH (08:26)
[2021-06-13] MEDS: CARBIDOPA/LEVODOPA 25/100MG TABLET PO SCH ×3 (08:26→20:57)
[2021-06-13 16:11] VITALS: BP 118/66
[2021-06-13] MEDS: ATORVASTATIN CALCIUM 10 MG TABLET. PO SCH (20:57)
--- NOTE | 2021-06-13 21:27 | PDOC ---
Exam Note: Daren Note: Please also refer to the separate dictated note~for this date of service dictated separately.~Patient seen individually. Discussed the patient with Nursing staff reviewed the chart.~Reviewed interim history and current functioning. Reviewed vital signs,~Labs/ Radiology~and current medications noted below. Continue current treatment with the changes noted in the dictated addendum note Assessment: Vital Signs/I&O: Vital Signs Date Time Temp Pulse Resp B/P (MAP) Pulse Ox O2 Delivery O2 Flow Rate FiO2 06/13/21 16:11 98.6 101 16 118/66 (83) 98 Room Air I & O 06/12/21 06/12/21 06/13/21 15:00 23:00 07:00 Intake Total 360 ml 240 ml Balance 360 ml 240 ml Labs: Laboratory Tests Test 06/13/21 06:08 06/13/21 18:29 White Blood Count 6.1 x10^3/uL (4.0-11.0) Red Blood Count 3.95 x10^6/uL (4.30-5.70) L Hemoglobin 12.7 g/dL (13.0-17.5) L Hematocrit 38.8 % (39.0-53.0) L Mean Corpuscular Volume 98 fL (79-100) Mean Corpuscular Hemoglobin 32 pg (25-35) Mean Corpuscular Hemoglobin Concent 33 g/dL (31-37) Red Cell Distribution Width 14.9 % (11.5-14.5) H Platelet Count 117 x10^3/uL (140-400) L Neutrophils (%) (Auto) 76 % (31-73) H Lymphocytes (%) (Auto) 14 % (24-48) L Monocytes (%) (Auto) 9 % (0-9) Eosinophils (%) (Auto) 1 % (0-3) Basophils (%) (Auto) 0 % (0-3) Neutrophils # (Auto) 4.7 x10^3uL (1.8-7.7) Lymphocytes # (Auto) 0.9 x10^3/uL (1.0-4.8) L Monocytes # (Auto) 0.5 x10^3/uL (0.0-1.1) Eosinophils # (Auto) 0.1 x10^3/uL (0.0-0.7) Basophils # (Auto) 0.0 x10^3/uL (0.0-0.2) POC SARS CoV-2 Antigen Negative (NEGATIVE) Current Medications: Meds: Laboratory Tests Test 06/13/21 06:08 06/13/21 18:29 White Blood Count 6.1 x10^3/uL Red Blood Count 3.95 x10^6/uL Hemoglobin 12.7 g/dL Hematocrit 38.8 % Mean Corpuscular Volume 98 fL Mean Corpuscular Hemoglobin 32 pg Mean Corpuscular Hemoglobin Concent 33 g/dL Red Cell Distribution Width 14.9 % Platelet Count 117 x10^3/uL Neutrophils (%) (Auto) 76 % Lymphocytes (%) (Auto) 14 % Monocytes (%) (Auto) 9 % Eosinophils (%) (Auto) 1 % Basophils (%) (Auto) 0 % Neutrophils # (Auto) 4.7 x10^3uL Lymphocytes # (Auto) 0.9 x10^3/uL Monocytes # (Auto) 0.5 x10^3/uL Eosinophils # (Auto) 0.1 x10^3/uL Basophils # (Auto) 0.0 x10^3/uL POC SARS CoV-2 Antigen Negative Current Medications Medications (Trade) Dose Ordered Sig/Daisy Route PRN Reason Start Time Stop Time Status Last Admin Dose Admin Acetaminophen (Tylenol) 650 mg PRN Q6HRS PRN PO MILD PAIN / TEMP > 100.3'F 05/11/21 16:15 Multi-Ingredient Ointment (Analgesic [place]) 1 eva PRN QID PRN TP MUSCLE PAIN 05/11/21 16:15 Al Hydroxide/Mg Hydroxide (Mylanta Plus Xs) 15 ml PRN AFTMEALHC PRN PO DYSPEPSIA 05/11/21 16:15 Magnesium Hydroxide (Milk Of Magnesia) 2,400 mg PRN QHS PRN PO CONSTIPATION 05/11/21 16:15 Nicotine (Nicoderm Cq 14mg Patch) 1 patch DAILY TD 05/12/21 09:00 05/30/21 17:27 DC 05/29/21 08:46 Ascorbic Acid (Vitamin C) 500 mg DAILY PO 05/12/21 09:00 06/13/21 08:20 Aspirin (Aspirin Chewable) 81 mg DAILY PO 05/12/21 09:00 06/13/21 08:19 Nicotine (Nicoderm Cq 14mg Patch) 1 patch DAILY TD 05/12/21 09:00 UNV Potassium Chloride (Klor-Con) 40 meq DAILY PO 05/12/21 09:00 06/13/21 08:20 Sennosides (Senna) 8.6 mg DAILY PO 05/12/21 09:00 06/13/21 08:26 Sertraline HCl (Zoloft) 125 mg DAILY PO 05/12/21 09:00 05/18/21 18:20 DC 05/18/21 08:59 Vitamin D (Vitamin D3) 1,000 unit DAILY PO 05/12/21 09:00 06/13/21 08:26 Cyanocobalamin (Vitamin B-12) 1,000 mcg [id number] PO 05/12/21 09:00 06/09/21 08:29 Polyethylene Glycol (miraLAX) 17 gm DAILY PO 05/12/21 09:00 06/13/21 08:18 Atorvastatin Calcium (Lipitor) 10 mg QHS PO 05/12/21 21:00 06/13/21 20:57 Quetiapine Fumarate (SEROquel) 25 mg PRN BID PRN PO AGITATION 05/12/21 07:15 05/19/21 19:14 DC 05/19/21 09:35 Divalproex Sodium (Depakote Sprinkles) 125 mg BID94 PO 05/12/21 09:00 05/12/21 16:01 DC 05/12/21 08:19 Ipratropium [place] (Atrovent Nasal) 1 spray BID NS 05/12/21 09:00 06/13/21 20:58 Divalproex Sodium (Depakote Sprinkles) 250 mg BID94 PO 05/12/21 16:00 05/16/21 18:09 DC 05/16/21 15:00 Cefdinir (Omnicef) 300 mg BID PO 05/14/21 21:00 05/20/21 22:00 DC 05/20/21 21:00 Lactobacillus Rhamnosus (Culturelle) 1 cap BID PO 05/14/21 21:00 06/13/21 20:57 Carbidopa/Levodopa (Sinemet 25/100) 1 tab TID PO 05/15/21 21:00 06/13/21 20:57 Divalproex Sodium (Depakote Sprinkles) 375 mg BID94 PO 05/17/21 09:00 05/27/21 19:14 DC 05/27/21 14:52 Sertraline HCl (Zoloft) 150 mg DAILY PO 05/19/21 09:00 06/01/21 11:53 DC 06/01/21 09:01 Quetiapine Fumarate (SEROquel) 25 mg 0900,1700 PO 05/20/21 09:00 05/23/21 18:17 DC 05/23/21 17:00 Olanzapine (ZyPREXA ZYDIS) 2.5 mg PRN Q2HR PRN PO PSYCHOSIS 05/20/21 10:00 06/01/21 20:10 Quetiapine Fumarate (SEROquel) 25 mg 0900,1300,1700 PO 05/24/21 09:00 05/25/21 11:57 DC 05/25/21 09:00 Quetiapine Fumarate (SEROquel) 25 mg 0900,1200,1500,1800 PO 05/25/21 12:00 06/13/21 17:34 Divalproex Sodium (Depakote Sprinkles) 500 mg BID94 PO 05/28/21 09:00 06/07/21 17:03 DC 06/07/21 08:54 Nicotine (Nicoderm Cq 7mg Patch) 1 patch DAILY TD 05/31/21 09:00 06/13/21 08:19 Sertraline HCl (Zoloft) 175 mg DAILY PO 06/02/21 09:00 06/13/21 08:25 Divalproex Sodium (Depakote Sprinkles) 250 mg BID94 PO 06/08/21 09:00 06/07/21 17:07 DC Divalproex Sodium (Depakote Sprinkles) 250 mg BID94 PO 06/07/21 17:15 06/13/21 15:58 Artificial Tears (Artificial Tears) 1 drop PRN Q4HRS PRN OS DRY EYE 06/11/21 16:00 06/11/21 18:00 I have reviewed the current psychotropics carefully including drug interactions. Risk benefit ratio favors no change other than as noted in my dictated progress note. Diagnosis: Problems: (1) Impulse control disorder, unspecified (2) Major depressive disorder, severe (3) Anxiety disorder, unspecified (4) Dementia, vascular, with depression (5) Dementia, vascular, with delusions (6) Dementia in Alzheimer's disease with depression (7) Dementia in Alzheimer's disease with delusions (8) Dementia of the Alzheimer's type with early onset with behavioral disturbance (9) Major neurocognitive disorder (10) Mild cognitive impairment MICHAEL MCKEON MD Jun 13, 2021 21:27
[2021-06-14 06:21] VITALS: BP 135/75
--- NOTE | 2021-06-14 06:54 | PDOC ---
Exam Note: Daren Note: This note is a late entry for 06/09/2021 covers elements not covered in my initial note. Subjective: The patient was seen individually on 06/09/2021, discussed and reviewed the chart with Dora MATIAS. The patient was seen in his room. He appears a little confused but he is more oriented when specifically questioned on this. He refused lunch. Review of Systems: Ambulation impaired, in wheelchair. No CV, , pulmonary, eye system symptoms on review. Mental Status Exam: The patient is oriented to himself and situation. I met with him in his room. Speech coherent. He had some latency of verbal responses, little loud at times but better. Abstraction fair. Computation impaired. Language function intact. Attention span short. Mood and affect somewhat labile, confused. No suicidal or homicidal ideation. Laboratory Data: Reviewed. 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 Anxiety disorder unspecified. Impulse control disorder unspecified. Plan: No change from initial note. Adjust as clinically indicated. Assessment: Vital Signs/I&O: Vital Signs Date Time Temp Pulse Resp B/P (MAP) Pulse Ox O2 Delivery O2 Flow Rate FiO2 06/14/21 06:21 98.3 64 16 135/75 (95) 96 06/13/21 16:11 Room Air I & O 06/13/21 06/13/21 06/14/21 15:00 23:00 07:00 Intake Total 960 ml 0 ml Balance 960 ml 0 ml Labs: Laboratory Tests Test 06/13/21 18:29 POC SARS CoV-2 Antigen Negative (NEGATIVE) Current Medications: I have reviewed the current psychotropics carefully including drug interactions. Risk benefit ratio favors no change other than as noted in my dictated progress note. Diagnosis: Problems: (1) Impulse control disorder, unspecified (2) Major depressive disorder, severe (3) Anxiety disorder, unspecified (4) Dementia, vascular, with depression (5) Dementia, vascular, with delusions (6) Dementia in Alzheimer's disease with depression (7) Dementia in Alzheimer's disease with delusions (8) Dementia of the Alzheimer's type with early onset with behavioral disturbance (9) Major neurocognitive disorder (10) Major depressive disorder, recurrent episode MICHAEL MCKEON MD Jun 14, 2021 06:54
--- NOTE | 2021-06-14 06:58 | PDOC ---
Exam Note: Daren Note: This note is a late entry for 06/10/2021 covers elements not covered in my initial note. Subjective: The patient was seen individually on 06/10/2021, discussed and reviewed the chart with Pollo MATIAS. The patient slept 8-3/4 hours previous night. He has been more pleasant if things are done slowly for him since he seems to have some difficulty understanding directions. He seems to get irritable at people, interactive with him as if he has memory deficits. At times he is a little impatient, puts himself on the floor at times. Review of Systems: Ambulation impaired, in wheelchair. No CV, , pulmonary, eye system symptoms on review. Mental Status Exam: The patient is oriented to himself and situation. Speech coherent at times, difficult to understand. Abstraction fair. Computation impaired. Language function intact. Attention span short. Mood and affect confused, irritable. Laboratory Data: Reviewed. Impression: Major depressive disorder with psychotic features. Major neurocognitive disorder, early Alzheimer, vascular with delusion, depression, be havioral disturbance. Anxiety disorder unspecified. Impulse control disorder unspecified. Plan: No change from initial note. Adjust as clinically indicated. Assessment: Vital Signs/I&O: Vital Signs Date Time Temp Pulse Resp B/P (MAP) Pulse Ox O2 Delivery O2 Flow Rate FiO2 06/14/21 06:21 98.3 64 16 135/75 (95) 96 06/13/21 16:11 Room Air I & O 06/13/21 06/13/21 06/14/21 15:00 23:00 07:00 Intake Total 960 ml 0 ml Balance 960 ml 0 ml Labs: Laboratory Tests Test 06/13/21 18:29 POC SARS CoV-2 Antigen Negative (NEGATIVE) Current Medications: I have reviewed the current psychotropics carefully including drug interactions. Risk benefit ratio favors no change other than as noted in my dictated progress note. Diagnosis: Problems: (1) Impulse control disorder, unspecified (2) Anxiety disorder, unspecified (3) Dementia, vascular, with depression (4) Dementia, vascular, with delusions (5) Dementia in Alzheimer's disease with depression (6) Dementia in Alzheimer's disease with delusions (7) Dementia of the Alzheimer's type with early onset with behavioral disturbance (8) Major neurocognitive disorder (9) Major depressive disorder, recurrent episode MICHAEL MCKEON MD Jun 14, 2021 06:58
--- NOTE | 2021-06-14 07:09 | PDOC ---
Exam Note: Daren Note: This note is a late entry for 06/12/2021 covers elements not covered in my initial note. Subjective: The patient was seen individually on 06/12/2021, discussed and reviewed the chart with Corinne MATIAS. The patient slept 8-1/2 hours previous night. I met with him in his room. Overall he is doing better. Review of Systems: Ambulation impaired, in wheelchair. No CV, , pulmonary, eye system symptoms on review. Mental Status Exam: The patient is oriented to himself and situation. Speech has some latency. Often response is monosyllabic. Abstraction fair. C omputation impaired. Language function intact. Attention span short. Mood and affect somewhat labile. Laboratory Data: Reviewed. 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 Anxiety disorder unspecified. Impulse control disorder unspecified. Plan: No change from initial note. Adjust as clinically indicated. Assessment: Vital Signs/I&O: Vital Signs Date Time Temp Pulse Resp B/P (MAP) Pulse Ox O2 Delivery O2 Flow Rate FiO2 06/14/21 06:21 98.3 64 16 135/75 (95) 96 06/13/21 16:11 Room Air I & O 06/13/21 06/13/21 06/14/21 14:59 22:59 06:59 Intake Total 960 ml 360 ml 0 ml Balance 960 ml 360 ml 0 ml Labs: Laboratory Tests Test 06/13/21 18:29 POC SARS CoV-2 Antigen Negative (NEGATIVE) Current Medications: I have reviewed the current psychotropics carefully including drug interactions. Risk benefit ratio favors no change other than as noted in my dictated progress note. Diagnosis: Problems: (1) Impulse control disorder, unspecified (2) Major depressive disorder, severe (3) Anxiety disorder, unspecified (4) Dementia, vascular, with depression (5) Dementia, vascular, with delusions (6) Dementia in Alzheimer's disease with depression (7) Dementia in Alzheimer's disease with delusions (8) Dementia of the Alzheimer's type with early onset with behavioral disturbance (9) Major neurocognitive disorder MICHAEL MCKEON MD Jun 14, 2021 07:09
--- NOTE | 2021-06-14 07:22 | PDOC ---
Exam Note: Daren Note: This note is a late entry for 06/13/2021 covers elements not covered in my initial note. Subjective: The patient was seen individually on 06/13/2021, discussed and reviewed the chart with Daniella MATIAS. The patient slept 7-1/2 hours previous night. He has been arguing, hitting, kicking in the morning, surrounding at showers, yelling, obscenities at nursing staff. Received Zyprexa at 11.25 a.m. and then did better after that. We will start a schedule Zyprexa 2.5 mg half an hour before his showers and ADLs, and he needs to assist with this. Review of Systems: Ambulation impaired, in wheelchair. Slightly hard of hearing. No CV, , pulmonary, eye system symptoms on review. Mental Status Exam: The patient is oriented to himself and situation. Speech has some latency, coherent. Abstraction fair. Computation impaired. Language function intact. Attention span short. Mood and affect somewhat anxious, labile. No suicidal or homicidal ideation. Laboratory Data: Reviewed. 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 Anxiety disorder unspecified. Impulse control disorder unspecified. Plan: No change from initial note. Adjust as clinically indicated. We will add the Zyprexa scheduled half hours before showers as noted above. Rest unchanged. Assessment: Vital Signs/I&O: Vital Signs Date Time Temp Pulse Resp B/P (MAP) Pulse Ox O2 Delivery O2 Flow Rate FiO2 06/14/21 06:21 98.3 64 16 135/75 (95) 96 06/13/21 16:11 Room Air I & O 06/13/21 06/13/21 06/14/21 14:59 22:59 06:59 Intake Total 960 ml 360 ml 0 ml Balance 960 ml 360 ml 0 ml Labs: Laboratory Tests Test 06/13/21 18:29 POC SARS CoV-2 Antigen Negative (NEGATIVE) Current Medications: I have reviewed the current psychotropics carefully including drug interactions. Risk benefit ratio favors no change other than as noted in my dictated progress note. Diagnosis: Problems: (1) Impulse control disorder, unspecified (2) Major depressive disorder, severe (3) Anxiety disorder, unspecified (4) Dementia, vascular, with depression (5) Dementia, vascular, with delusions (6) Dementia in Alzheimer's disease with depression (7) Dementia in Alzheimer's disease with delusions (8) Dementia of the Alzheimer's type with early onset with behavioral disturbance (9) Major neurocognitive disorder MICHAEL MCKEON MD Jun 14, 2021 07:22
[2021-06-14] MEDS: IPRATROPIUM BROMIDE 0.06% NASAL SPRAY 15ML BOTTLE NS SCH ×2 (08:52→20:19)
[2021-06-14] MEDS: DIVALPROEX 125 MG CAP.SPRINK PO SCH ×2 (08:52→17:13)
[2021-06-14] MEDS: POTASSIUM CHLORIDE 20 MEQ TABLET.ER. PO SCH (08:53)
[2021-06-14] MEDS: ASPIRIN CHEWABLE 81 MG TABLET. PO SCH (08:53)
[2021-06-14] MEDS: LACTOBACILLUS RHAMNOSUS GG 1 CAPSULE. PO SCH ×2 (08:53→20:19)
[2021-06-14] MEDS: POLYETHYLENE GLYCOL 3350 17 GM PACKET. PO SCH (08:53)
[2021-06-14] MEDS: SENNOSIDES 8.6 MG TABLET PO SCH (08:53)
[2021-06-14] MEDS: CARBIDOPA/LEVODOPA 25/100MG TABLET PO SCH ×3 (08:54→20:19)
[2021-06-14] MEDS: SERTRALINE 50 MG TABLET. PO SCH (08:54)
[2021-06-14] MEDS: QUEtiapine 25 MG TABLET. PO SCH ×4 (08:54→17:13)
[2021-06-14] MEDS: ASCORBIC ACID 500 MG TABLET PO SCH (08:54)
[2021-06-14] MEDS: NICOTINE 7MG PATCH. TD SCH (08:54)
[2021-06-14] MEDS: CHOLECALCIFEROL (VITAMIN D3) 1,000 UNIT TABLET PO SCH (08:54)
[2021-06-14 15:46] VITALS: BP 115/70
[2021-06-14] MEDS: ATORVASTATIN CALCIUM 10 MG TABLET. PO SCH (20:19)
--- NOTE | 2021-06-14 22:17 | PDOC ---
Exam Note: Daren Note: Please also refer to the separate dictated note~for this date of service dictated separately.~Patient seen individually. Discussed the patient with Nursing staff reviewed the chart.~Reviewed interim history and current functioning. Reviewed vital signs,~Labs/ Radiology~and current medications noted below. Continue current treatment with the changes noted in the dictated addendum note Assessment: Vital Signs/I&O: Vital Signs Date Time Temp Pulse Resp B/P (MAP) Pulse Ox O2 Delivery O2 Flow Rate FiO2 06/14/21 15:46 98.0 81 20 115/70 (85) 96 06/13/21 16:11 Room Air I & O 06/13/21 06/13/21 06/14/21 15:00 23:00 07:00 Intake Total 960 ml 360 ml 0 ml Balance 960 ml 360 ml 0 ml Current Medications: Meds: Current Medications Medications (Trade) Dose Ordered Sig/Daisy Route PRN Reason Start Time Stop Time Status Last Admin Dose Admin Acetaminophen (Tylenol) 650 mg PRN Q6HRS PRN PO MILD PAIN / TEMP > 100.3'F 05/11/21 16:15 Multi-Ingredient Ointment (Analgesic [place]) 1 eva PRN QID PRN TP MUSCLE PAIN 05/11/21 16:15 Al Hydroxide/Mg Hydroxide (Mylanta Plus Xs) 15 ml PRN AFTMEALHC PRN PO DYSPEPSIA 05/11/21 16:15 Magnesium Hydroxide (Milk Of Magnesia) 2,400 mg PRN QHS PRN PO CONSTIPATION 05/11/21 16:15 Nicotine (Nicoderm Cq 14mg Patch) 1 patch DAILY TD 05/12/21 09:00 05/30/21 17:27 DC 05/29/21 08:46 Ascorbic Acid (Vitamin C) 500 mg DAILY PO 05/12/21 09:00 06/14/21 08:54 Aspirin (Aspirin Chewable) 81 mg DAILY PO 05/12/21 09:00 06/14/21 08:53 Nicotine (Nicoderm Cq 14mg Patch) 1 patch DAILY TD 05/12/21 09:00 UNV Potassium Chloride (Klor-Con) 40 meq DAILY PO 05/12/21 09:00 06/14/21 08:53 Sennosides (Senna) 8.6 mg DAILY PO 05/12/21 09:00 06/14/21 08:53 Sertraline HCl (Zoloft) 125 mg DAILY PO 05/12/21 09:00 05/18/21 18:20 DC 05/18/21 08:59 Vitamin D (Vitamin D3) 1,000 unit DAILY PO 05/12/21 09:00 06/14/21 08:54 Cyanocobalamin (Vitamin B-12) 1,000 mcg [id number] PO 05/12/21 09:00 06/09/21 08:29 Polyethylene Glycol (miraLAX) 17 gm DAILY PO 05/12/21 09:00 06/14/21 08:53 Atorvastatin Calcium (Lipitor) 10 mg QHS PO 05/12/21 21:00 06/14/21 20:19 Quetiapine Fumarate (SEROquel) 25 mg PRN BID PRN PO AGITATION 05/12/21 07:15 05/19/21 19:14 DC 05/19/21 09:35 Divalproex Sodium (Depakote Sprinkles) 125 mg [id number] PO 05/12/21 09:00 05/12/21 16:01 DC 05/12/21 08:19 Ipratropium [place] (Atrovent Nasal) 1 spray BID NS 05/12/21 09:00 06/14/21 20:19 Divalproex Sodium (Depakote Sprinkles) 250 mg [id number] PO 05/12/21 16:00 05/16/21 18:09 DC 05/16/21 15:00 Cefdinir (Omnicef) 300 mg BID PO 05/14/21 21:00 05/20/21 22:00 DC 05/20/21 21:00 Lactobacillus Rhamnosus (Culturelle) 1 cap BID PO 05/14/21 21:00 06/14/21 20:19 Carbidopa/Levodopa (Sinemet 25/100) 1 tab TID PO 05/15/21 21:00 06/14/21 20:19 Divalproex Sodium (Depakote Sprinkles) 375 mg BID94 PO 05/17/21 09:00 05/27/21 19:14 DC 05/27/21 14:52 Sertraline HCl (Zoloft) 150 mg DAILY PO 05/19/21 09:00 06/01/21 11:53 DC 06/01/21 09:01 Quetiapine Fumarate (SEROquel) 25 mg 0900,1700 PO 05/20/21 09:00 05/23/21 18:17 DC 05/23/21 17:00 Olanzapine (ZyPREXA ZYDIS) 2.5 mg PRN Q2HR PRN PO PSYCHOSIS 05/20/21 10:00 06/01/21 20:10 Quetiapine Fumarate (SEROquel) 25 mg 0900,1300,1700 PO 05/24/21 09:00 05/25/21 11:57 DC 05/25/21 09:00 Quetiapine Fumarate (SEROquel) 25 mg 0900,1200,1500,1800 PO 05/25/21 12:00 06/14/21 17:13 Divalproex Sodium (Depakote Sprinkles) 500 mg BID94 PO 05/28/21 09:00 06/07/21 17:03 DC 06/07/21 08:54 Nicotine (Nicoderm Cq 7mg Patch) 1 patch DAILY TD 05/31/21 09:00 06/14/21 08:54 Sertraline HCl (Zoloft) 175 mg DAILY PO 06/02/21 09:00 06/14/21 08:54 Divalproex Sodium (Depakote Sprinkles) 250 mg BID94 PO 06/08/21 09:00 06/07/21 17:07 DC Divalproex Sodium (Depakote Sprinkles) 250 mg BID94 PO 06/07/21 17:15 06/14/21 17:13 Artificial Tears (Artificial Tears) 1 drop PRN Q4HRS PRN OS DRY EYE 06/11/21 16:00 06/11/21 18:00 I have reviewed the current psychotropics carefully including drug interactions. Risk benefit ratio favors no change other than as noted in my dictated progress note. Diagnosis: Problems: (1) Impulse control disorder, unspecified (2) Major depressive disorder, severe (3) Anxiety disorder, unspecified (4) Dementia, vascular, with depression (5) Dementia, vascular, with delusions (6) Dementia in Alzheimer's disease with depression (7) Dementia in Alzheimer's disease with delusions (8) Dementia of the Alzheimer's type with early onset with behavioral disturbance (9) Major neurocognitive disorder (10) Mild cognitive impairment MICHAEL MCKEON MD Jun 14, 2021 22:17
[2021-06-15 06:02] VITALS: BP 112/71
[2021-06-15] MEDS: ASCORBIC ACID 500 MG TABLET PO SCH (08:42)
[2021-06-15] MEDS: DIVALPROEX 125 MG CAP.SPRINK PO SCH ×2 (08:42→15:02)
[2021-06-15] MEDS: POLYETHYLENE GLYCOL 3350 17 GM PACKET. PO SCH (08:42)
[2021-06-15] MEDS: NICOTINE 7MG PATCH. TD SCH (08:42)
[2021-06-15] MEDS: SENNOSIDES 8.6 MG TABLET PO SCH (08:42)
[2021-06-15] MEDS: POTASSIUM CHLORIDE 20 MEQ TABLET.ER. PO SCH (08:42)
[2021-06-15] MEDS: IPRATROPIUM BROMIDE 0.06% NASAL SPRAY 15ML BOTTLE NS SCH ×2 (08:43→20:36)
[2021-06-15] MEDS: LACTOBACILLUS RHAMNOSUS GG 1 CAPSULE. PO SCH ×2 (08:43→20:35)
[2021-06-15] MEDS: CHOLECALCIFEROL (VITAMIN D3) 1,000 UNIT TABLET PO SCH (08:43)
[2021-06-15] MEDS: ASPIRIN CHEWABLE 81 MG TABLET. PO SCH (08:43)
[2021-06-15] MEDS: QUEtiapine 25 MG TABLET. PO SCH ×4 (08:43→17:23)
[2021-06-15] MEDS: CARBIDOPA/LEVODOPA 25/100MG TABLET PO SCH ×3 (08:43→20:35)
[2021-06-15] MEDS: SERTRALINE 50 MG TABLET. PO SCH (08:44)
--- NOTE | 2021-06-15 11:02 | TX PLAN ---
Interdisciplinary Tx Plan Admission Information May 11, 2021 at 14:29 Legal Status (on Admission): Voluntary DPOA/Guardian Name: Milvia patel Contact Other Contact Name: Mercedes LUND Other Contact Verified Code Status: Full Code Allergies: Coded Allergies: No Known Drug Allergies (Unverified , 02/17/20) Diagnoses Primary Diagnosis: Dementia, Vascular with Depression and BD Reasons for Admission: Depressed, Suicidal attempt, Poor impulse control Problem in Patient's Words: Concerned that he may need a higher level of care Additional Admission Comments: According to the intake, pt has acute suicidal ideations, attempted to drown himself in a pond, depressed, poor intake and refusing meds. Eloped from the facility, aggressive when doesn't want to do something Problems Active Problems: Withdrawn Inactive Problems: Medication complaint Pt Strengths/Limitations Ability for [place]: Poor Cognitive Functioning/Ability: Fair Communication Skills/Ability: Fair Financial Resources: Fair Insight/Judgement: Poor Intellectual Ability: Fair Physical Health: Poor Social Skills: Fair Stability in Family: Fair Stability in School/Work: Poor Verbal Skills: Fair Discharge Criteria Discharge Criteria: No need for close observ., Adequate arrangements @DC, Improved behavior, Improved mood/thought Preliminary Discharge Plan Preliminary DC Plan: Current Living Arrange. Special Precautions Fall Risk: Moderate Initial D/C Plan Pt to return to [facility] once stable. Identified Discharge Needs: Psychiatric care needs Currently Utilized Resources Currently Utilized Resources/P: Services through the [facility] Identified Problems/Hx/Goals Objectives/Short-Term Goals Short Term Goals: No Suicidal/Serjio. ideation Short Term Goals in Patient's: N/A Interventions/Frequency Staff Interventions/Frequency&: Psychiatrist to assess pt at least 3x per week for medication management. Social Work to assess pt at least 2x per week to identify barriers to care and discharge planning. Nursing to assess medication effects, behavior modification and completion of 15 minute checks. Encourage participation in group activities (if applicable) or 1:1 engagement based off activity dept goals. History Vocational History: Pt worked for the [employer] for the [employer] for many years. Retired due to "not liking people". Education: Pt graduated HS 12th grade Community Follow-up Will continue services through the [place] Treatment Plan Explained Patient/Medical Assistant Cardiology had this treatment plan explained to him/her as indicated by the signature below and has been given the opportunity to ask questions and make suggestions: Date: Patient/Medical Assistant Cardiology Signature: Status Update Update Pt is eating 100% of meals and sleeping on average 7.5 hours per night. Pt continues to be cooperative with meds and staff direction. It is noted there was a time in which pt attempted to refuse meds and have some minor behaviors in which staff associates with the changes being made on the unit (e.g. moved rooms and roommates). Pt does have episodes where he lays himself on the floor, which is noted to be a behavior. Pt has little to no interest in groups, but did attend one group which discussed feelings and emotion. Pt is able to discharge once an appropriate placement can be found. CHAVA JIANG Jun 15, 2021 11:02
[2021-06-15 15:36] VITALS: BP 133/80
[2021-06-15] MEDS: ATORVASTATIN CALCIUM 10 MG TABLET. PO SCH (20:35)
--- NOTE | 2021-06-15 21:34 | PDOC ---
Exam Note: Daren Note: Please also refer to the separate dictated note~for this date of service dictated separately.~Patient seen individually. Discussed the patient with Nursing staff reviewed the chart.~Reviewed interim history and current functioning. Reviewed vital signs,~Labs/ Radiology~and current medications noted below. Continue current treatment with the changes noted in the dictated addendum note Assessment: Vital Signs/I&O: Vital Signs Date Time Temp Pulse Resp B/P (MAP) Pulse Ox O2 Delivery O2 Flow Rate FiO2 06/15/21 15:36 97.2 87 18 133/80 (97) 97 06/15/21 06:02 Room Air I & O 06/14/21 06/14/21 06/15/21 15:00 23:00 07:00 Intake Total 620 ml 360 ml Balance 620 ml 360 ml Current Medications: Meds: Current Medications Medications (Trade) Dose Ordered Sig/Daisy Route PRN Reason Start Time Stop Time Status Last Admin Dose Admin Acetaminophen (Tylenol) 650 mg PRN Q6HRS PRN PO MILD PAIN / TEMP > 100.3'F 05/11/21 16:15 Multi-Ingredient Ointment (Analgesic [place]) 1 eva PRN QID PRN TP MUSCLE PAIN 05/11/21 16:15 Al Hydroxide/Mg Hydroxide (Mylanta Plus Xs) 15 ml PRN AFTMEALHC PRN PO DYSPEPSIA 05/11/21 16:15 Magnesium Hydroxide (Milk Of Magnesia) 2,400 mg PRN QHS PRN PO CONSTIPATION 05/11/21 16:15 Nicotine (Nicoderm Cq 14mg Patch) 1 patch DAILY TD 05/12/21 09:00 05/30/21 17:27 DC 05/29/21 08:46 Ascorbic Acid (Vitamin C) 500 mg DAILY PO 05/12/21 09:00 06/15/21 08:42 Aspirin (Aspirin Chewable) 81 mg DAILY PO 05/12/21 09:00 06/15/21 08:43 Nicotine (Nicoderm Cq 14mg Patch) 1 patch DAILY TD 05/12/21 09:00 UNV Potassium Chloride (Klor-Con) 40 meq DAILY PO 05/12/21 09:00 06/15/21 08:42 Sennosides (Senna) 8.6 mg DAILY PO 05/12/21 09:00 06/15/21 08:42 Sertraline HCl (Zoloft) 125 mg DAILY PO 05/12/21 09:00 05/18/21 18:20 DC 05/18/21 08:59 Vitamin D (Vitamin D3) 1,000 unit DAILY PO 05/12/21 09:00 06/15/21 08:43 Cyanocobalamin (Vitamin B-12) 1,000 mcg [id number] PO 05/12/21 09:00 06/09/21 08:29 Polyethylene Glycol (miraLAX) 17 gm DAILY PO 05/12/21 09:00 06/15/21 08:42 Atorvastatin Calcium (Lipitor) 10 mg QHS PO 05/12/21 21:00 06/15/21 20:35 Quetiapine Fumarate (SEROquel) 25 mg PRN BID PRN PO AGITATION 05/12/21 07:15 05/19/21 19:14 DC 05/19/21 09:35 Divalproex Sodium (Depakote Sprinkles) 125 mg [id number] PO 05/12/21 09:00 05/12/21 16:01 DC 05/12/21 08:19 Ipratropium [place] (Atrovent Nasal) 1 spray BID NS 05/12/21 09:00 06/15/21 20:36 Divalproex Sodium (Depakote Sprinkles) 250 mg BID94 PO 05/12/21 16:00 05/16/21 18:09 DC 05/16/21 15:00 Cefdinir (Omnicef) 300 mg BID PO 05/14/21 21:00 05/20/21 22:00 DC 05/20/21 21:00 Lactobacillus Rhamnosus (Culturelle) 1 cap BID PO 05/14/21 21:00 06/15/21 20:35 Carbidopa/Levodopa (Sinemet 25/100) 1 tab TID PO 05/15/21 21:00 06/15/21 20:35 Divalproex Sodium (Depakote Sprinkles) 375 mg BID94 PO 05/17/21 09:00 05/27/21 19:14 DC 05/27/21 14:52 Sertraline HCl (Zoloft) 150 mg DAILY PO 05/19/21 09:00 06/01/21 11:53 DC 06/01/21 09:01 Quetiapine Fumarate (SEROquel) 25 mg 0900,1700 PO 05/20/21 09:00 05/23/21 18:17 DC 05/23/21 17:00 Olanzapine (ZyPREXA ZYDIS) 2.5 mg PRN Q2HR PRN PO PSYCHOSIS 05/20/21 10:00 06/15/21 08:58 Quetiapine Fumarate (SEROquel) 25 mg 0900,1300,1700 PO 05/24/21 09:00 05/25/21 11:57 DC 05/25/21 09:00 Quetiapine Fumarate (SEROquel) 25 mg 0900,1200,1500,1800 PO 05/25/21 12:00 06/15/21 17:23 Divalproex Sodium (Depakote Sprinkles) 500 mg BID94 PO 05/28/21 09:00 06/07/21 17:03 DC 06/07/21 08:54 Nicotine (Nicoderm Cq 7mg Patch) 1 patch DAILY TD 05/31/21 09:00 06/15/21 08:42 Sertraline HCl (Zoloft) 175 mg DAILY PO 06/02/21 09:00 06/15/21 08:44 Divalproex Sodium (Depakote Sprinkles) 250 mg BID94 PO 06/08/21 09:00 06/07/21 17:07 DC Divalproex Sodium (Depakote Sprinkles) 250 mg BID94 PO 06/07/21 17:15 06/15/21 15:02 Artificial Tears (Artificial Tears) 1 drop PRN Q4HRS PRN OS DRY EYE 06/11/21 16:00 06/11/21 18:00 I have reviewed the current psychotropics carefully including drug interactions. Risk benefit ratio favors no change other than as noted in my dictated progress note. Diagnosis: Problems: (1) Impulse control disorder, unspecified (2) Major depressive disorder, severe (3) Anxiety disorder, unspecified (4) Dementia, vascular, with depression (5) Dementia, vascular, with delusions (6) Dementia in Alzheimer's disease with depression (7) Dementia in Alzheimer's disease with delusions (8) Dementia of the Alzheimer's type with early onset with behavioral disturbance (9) Major neurocognitive disorder (10) Mild cognitive impairment MICHAEL MCKEON MD Jun 15, 2021 21:34
[2021-06-16 05:59] VITALS: BP 152/71
[2021-06-16 06:11] LABS: BASO % 1 % (0-3); EOS % 1 % (0-3); HEMATOCRIT 39.7 % (39.0-53.0); HEMOGLOBIN 13.6 g/dL (13.0-17.5); LYMPH % 23 % (24-48); MEAN CORPUSCULAR HEMOGLOBIN 32 pg (25-35); MEAN CORPUSCULAR HGB CONC 34 g/dL (31-37); MEAN CORPUSCULAR VOLUME 94 fL (79-100); MONO # 0.4 x10^3/uL (0.0-1.1); MONO % 10 % (0-9); NEUT # 2.8 x10^3uL (1.8-7.7); NEUT % 66 % (31-73); PLATELET COUNT 132 x10^3/uL (140-400); RED CELL DISTRIBUTION WIDTH 14.5 % (11.5-14.5); WHITE BLOOD COUNT 4.3 x10^3/uL (4.0-11.0)
[2021-06-16 06:34] LABS: ALBUMIN 3.5 g/dL (3.4-5.0); ALBUMIN/GLOBULIN RATIO 1.2 (1.0-1.7); CREATININE 0.7 mg/dL (0.7-1.3); GFR 110.5; POTASSIUM 4.4 mmol/L (3.5-5.1); TOTAL BILIRUBIN 0.5 mg/dL (0.2-1.0); TOTAL PROTEIN 6.5 g/dL (6.4-8.2)
--- NOTE | 2021-06-16 08:16 | PDOC ---
Exam Note: Daren Note: This note is a late entry for 06/14/2021 covers elements not covered in my initial note. Subjective: The patient was seen individually on 06/14/2021, discussed and reviewed the chart with Daniella MATIAS. The patient slept 8-1/2 hours previous night. I met with him in his room. He is doing better. His room has been changed. Review of Systems: Ambulation impaired, in wheelchair. Hard of hearing. No CV, , pulmonary, eye system symptoms on review. Mental Status Exam: The patient is oriented to himself and situation. He was a little more verbal, interactive but has latency of responses. Speech coherent has some latency. Abstraction fair. Computation impaired. Language function intact. Attention span short. Mood and affect somewhat anxious, labile. No suicidal or homicidal ideation. Laboratory Data: Reviewed. 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 Anxiety disorder unspecified. Impulse control disorder unspecified. Plan: No change from initial note. Assessment: Vital Signs/I&O: Vital Signs Date Time Temp Pulse Resp B/P (MAP) Pulse Ox O2 Delivery O2 Flow Rate FiO2 06/16/21 05:59 98.3 66 20 152/71 (98) 97 06/15/21 06:02 Room Air I & O 06/15/21 06/15/21 06/16/21 15:00 23:00 07:00 Intake Total 340 ml 120 ml Balance 340 ml 120 ml Labs: Laboratory Tests Test 06/16/21 05:54 White Blood Count 4.3 x10^3/uL (4.0-11.0) Red Blood Count 4.20 x10^6/uL (4.30-5.70) L Hemoglobin 13.6 g/dL (13.0-17.5) Hematocrit 39.7 % (39.0-53.0) Mean Corpuscular Volume 94 fL (79-100) Mean Corpuscular Hemoglobin 32 pg (25-35) Mean Corpuscular Hemoglobin Concent 34 g/dL (31-37) Red Cell Distribution Width 14.5 % (11.5-14.5) Platelet Count 132 x10^3/uL (140-400) L Neutrophils (%) (Auto) 66 % (31-73) Lymphocytes (%) (Auto) 23 % (24-48) L Monocytes (%) (Auto) 10 % (0-9) H Eosinophils (%) (Auto) 1 % (0-3) Basophils (%) (Auto) 1 % (0-3) Neutrophils # (Auto) 2.8 x10^3uL (1.8-7.7) Lymphocytes # (Auto) 1.0 x10^3/uL (1.0-4.8) Monocytes # (Auto) 0.4 x10^3/uL (0.0-1.1) Eosinophils # (Auto) 0.0 x10^3/uL (0.0-0.7) Basophils # (Auto) 0.0 x10^3/uL (0.0-0.2) Sodium Level 142 mmol/L (136-145) Potassium Level 4.4 mmol/L (3.5-5.1) Chloride Level 106 mmol/L (98-107) Carbon Dioxide Level 29 mmol/L (21-32) Anion Gap 7 (6-14) Blood Urea Nitrogen 21 mg/dL (8-26) Creatinine 0.7 mg/dL (0.7-1.3) Estimated GFR (Cockcroft-Gault) 110.5 BUN/Creatinine Ratio 30 (6-20) H Glucose Level 78 mg/dL (70-99) Calcium Level 9.0 mg/dL (8.5-10.1) Total Bilirubin 0.5 mg/dL (0.2-1.0) Aspartate Amino Transferase (AST) 11 U/L (15-37) L Alanine Aminotransferase (ALT) 9 U/L (16-63) L Alkaline Phosphatase 91 U/L (46-116) Total Protein 6.5 g/dL (6.4-8.2) Albumin 3.5 g/dL (3.4-5.0) Albumin/Globulin Ratio 1.2 (1.0-1.7) Current Medications: I have reviewed the current psychotropics carefully including drug interactions. Risk benefit ratio favors no change other than as noted in my dictated progress note. Diagnosis: Problems: (1) Impulse control disorder, unspecified (2) Major depressive disorder, severe (3) Anxiety disorder, unspecified (4) Dementia, vascular, with depression (5) Dementia, vascular, with delusions (6) Dementia in Alzheimer's disease with depression (7) Dementia in Alzheimer's disease with delusions (8) Dementia of the Alzheimer's type with early onset with behavioral disturbance (9) Major neurocognitive disorder (10) Mild cognitive impairment MICHAEL MCKEON MD Jun 16, 2021 08:16
--- NOTE | 2021-06-16 08:27 | PDOC ---
Exam Note: Daren Note: This note is a late entry for 06/15/2021 covers elements not covered in my initial note. Subjective: The patient was reviewed at treatment team meeting in the morning on 06/15/2021 with Eva Troncoso, Maria Esther Piña (neonatal social worker), Clara, activity therapy, and Dustin MATIAS, discussed and reviewed the chart. Discussed and reviewed his diagnoses, progress, psychotropic medications at length. The patient slept 9 hours previous night. Average slept 7-1/2 hours. Appetite 100%. She attended one group, attended the memory game. I met with him in his room in the evening. Review of Systems: Ambulation impaired, in wheelchair. Hard of hearing. No CV, , pulmonary, eye system symptoms on review. Mental Status Exam: The patient is oriented to himself and situation. He was tired, somewhat sedated in the evening and withdrawn to his room. Speech coherent has some latency. Abstraction fair. Computation impaired. Language function intact. Attention span short. Mood and affect anxious. No suicidal or homicidal ideation. Laboratory Data: Reviewed. 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 Anxiety disorder unspecified. Impulse control disorder unspecified. Plan: No change from initial note. Assessment: Vital Signs/I&O: Vital Signs Date Time Temp Pulse Resp B/P (MAP) Pulse Ox O2 Delivery O2 Flow Rate FiO2 06/16/21 05:59 98.3 66 20 152/71 (98) 97 06/15/21 06:02 Room Air I & O 06/15/21 06/15/21 06/16/21 15:00 23:00 07:00 Intake Total 340 ml 120 ml Balance 340 ml 120 ml Labs: Laboratory Tests Test 06/16/21 05:54 White Blood Count 4.3 x10^3/uL (4.0-11.0) Red Blood Count 4.20 x10^6/uL (4.30-5.70) L Hemoglobin 13.6 g/dL (13.0-17.5) Hematocrit 39.7 % (39.0-53.0) Mean Corpuscular Volume 94 fL (79-100) Mean Corpuscular Hemoglobin 32 pg (25-35) Mean Corpuscular Hemoglobin Concent 34 g/dL (31-37) Red Cell Distribution Width 14.5 % (11.5-14.5) Platelet Count 132 x10^3/uL (140-400) L Neutrophils (%) (Auto) 66 % (31-73) Lymphocytes (%) (Auto) 23 % (24-48) L Monocytes (%) (Auto) 10 % (0-9) H Eosinophils (%) (Auto) 1 % (0-3) Basophils (%) (Auto) 1 % (0-3) Neutrophils # (Auto) 2.8 x10^3uL (1.8-7.7) Lymphocytes # (Auto) 1.0 x10^3/uL (1.0-4.8) Monocytes # (Auto) 0.4 x10^3/uL (0.0-1.1) Eosinophils # (Auto) 0.0 x10^3/uL (0.0-0.7) Basophils # (Auto) 0.0 x10^3/uL (0.0-0.2) Sodium Level 142 mmol/L (136-145) Potassium Level 4.4 mmol/L (3.5-5.1) Chloride Level 106 mmol/L (98-107) Carbon Dioxide Level 29 mmol/L (21-32) Anion Gap 7 (6-14) Blood Urea Nitrogen 21 mg/dL (8-26) Creatinine 0.7 mg/dL (0.7-1.3) Estimated GFR (Cockcroft-Gault) 110.5 BUN/Creatinine Ratio 30 (6-20) H Glucose Level 78 mg/dL (70-99) Calcium Level 9.0 mg/dL (8.5-10.1) Total Bilirubin 0.5 mg/dL (0.2-1.0) Aspartate Amino Transferase (AST) 11 U/L (15-37) L Alanine Aminotransferase (ALT) 9 U/L (16-63) L Alkaline Phosphatase 91 U/L (46-116) Total Protein 6.5 g/dL (6.4-8.2) Albumin 3.5 g/dL (3.4-5.0) Albumin/Globulin Ratio 1.2 (1.0-1.7) Current Medications: I have reviewed the current psychotropics carefully including drug interactions. Risk benefit ratio favors no change other than as noted in my dictated progress note. Diagnosis: Problems: (1) Impulse control disorder, unspecified (2) Major depressive disorder, severe (3) Anxiety disorder, unspecified (4) Dementia, vascular, with depression (5) Dementia, vascular, with delusions (6) Dementia in Alzheimer's disease with depression (7) Dementia in Alzheimer's disease with delusions (8) Dementia of the Alzheimer's type with early onset with behavioral disturbance (9) Major neurocognitive disorder (10) Mild cognitive impairment MICHAEL MCKEON MD Jun 16, 2021 08:27
[2021-06-16] MEDS: QUEtiapine 25 MG TABLET. PO SCH ×4 (08:55→18:11)
[2021-06-16] MEDS: LACTOBACILLUS RHAMNOSUS GG 1 CAPSULE. PO SCH ×2 (08:55→20:06)
[2021-06-16] MEDS: SENNOSIDES 8.6 MG TABLET PO SCH (08:55)
[2021-06-16] MEDS: SERTRALINE 50 MG TABLET. PO SCH (08:55)
[2021-06-16] MEDS: CARBIDOPA/LEVODOPA 25/100MG TABLET PO SCH ×3 (08:55→20:07)
[2021-06-16] MEDS: CHOLECALCIFEROL (VITAMIN D3) 1,000 UNIT TABLET PO SCH (08:56)
[2021-06-16] MEDS: POTASSIUM CHLORIDE 20 MEQ TABLET.ER. PO SCH (08:57)
[2021-06-16] MEDS: DIVALPROEX 125 MG CAP.SPRINK PO SCH ×2 (08:58→16:24)
[2021-06-16] MEDS: IPRATROPIUM BROMIDE 0.06% NASAL SPRAY 15ML BOTTLE NS SCH ×2 (08:58→20:07)
[2021-06-16] MEDS: NICOTINE 7MG PATCH. TD SCH ×2 (08:58→09:00)
[2021-06-16] MEDS: ASPIRIN CHEWABLE 81 MG TABLET. PO SCH (08:58)
[2021-06-16] MEDS: ASCORBIC ACID 500 MG TABLET PO SCH (08:58)
[2021-06-16] MEDS: POLYETHYLENE GLYCOL 3350 17 GM PACKET. PO SCH (08:58)
[2021-06-16 15:47] VITALS: BP 119/69
--- NOTE | 2021-06-16 19:10 | PN ---
DATE: 06/16/2021 SUBJECTIVE: The patient was seen today, met with the staff. Chart reviewed. I am covering for Dr. Cornell. Staff reports increased irritability, having involuntary movements, has had 2-3 falls recently with no major injuries except for bruises. He was also seen by Dr. Kessler, the neurologist for his Parkinson's. He is appropriate with ADLs. OBSERVATION: VITAL SIGNS: Temperature 98.5, blood pressure 117/61, pulse 78, respirations 16, O2 sat 94%. GENERAL. She slept about 6-1/2 hours last night. The patient is not having any physical complaints. CURRENT MEDICATIONS: Include Depakote 250 mg twice a day, Zoloft 150 mg daily, Seroquel 25 mg 4 times a day and olanzapine 2.5 mg q. 4 hours p.r.n. LABORATORY DATA: The patient's lab reviewed. ASSESSMENT: 1. Major depressive disorder with psychotic features. 2. Major neurocognitive disorder, Alzheimer's, vascular with delusions, depression and behavioral disturbances. PLAN: Continue with treatment plan. LENGTH OF STAY: Five to seven days, awaiting for placement. JENI/EKT DR: JENI/dawood TID: [id number]
[2021-06-16] MEDS: ATORVASTATIN CALCIUM 10 MG TABLET. PO SCH (20:07)
[2021-06-17 06:04] VITALS: BP 129/70
[2021-06-17] MEDS: DIVALPROEX 125 MG CAP.SPRINK PO SCH ×2 (08:07→16:42)
[2021-06-17] MEDS: POLYETHYLENE GLYCOL 3350 17 GM PACKET. PO SCH (08:07)
[2021-06-17] MEDS: CHOLECALCIFEROL (VITAMIN D3) 1,000 UNIT TABLET PO SCH (08:08)
[2021-06-17] MEDS: ASCORBIC ACID 500 MG TABLET PO SCH (08:08)
[2021-06-17] MEDS: POTASSIUM CHLORIDE 20 MEQ TABLET.ER. PO SCH (08:08)
[2021-06-17] MEDS: SERTRALINE 50 MG TABLET. PO SCH (08:08)
[2021-06-17] MEDS: CARBIDOPA/LEVODOPA 25/100MG TABLET PO SCH ×3 (08:08→20:13)
[2021-06-17] MEDS: ASPIRIN CHEWABLE 81 MG TABLET. PO SCH (08:08)
[2021-06-17] MEDS: SENNOSIDES 8.6 MG TABLET PO SCH (08:08)
[2021-06-17] MEDS: LACTOBACILLUS RHAMNOSUS GG 1 CAPSULE. PO SCH ×2 (08:08→20:12)
[2021-06-17] MEDS: QUEtiapine 25 MG TABLET. PO SCH ×4 (08:08→16:42)
[2021-06-17] MEDS: NICOTINE 7MG PATCH. TD SCH (08:09)
[2021-06-17] MEDS: IPRATROPIUM BROMIDE 0.06% NASAL SPRAY 15ML BOTTLE NS SCH ×2 (08:12→20:13)
[2021-06-17 16:09] VITALS: BP 112/67
[2021-06-17] MEDS: ATORVASTATIN CALCIUM 10 MG TABLET. PO SCH (20:14)
--- NOTE | 2021-06-17 21:23 | PN ---
DATE: 06/17/2021 SUBJECTIVE: The patient continues to show improvement, cooperative and medication compliant, but still withdrawn, isolating himself in his room, also confused, tends to pace a lot. OBSERVATION: VITAL SIGNS: Temperature 98.3, blood pressure 129/70, pulse 64, respirations 20, O2 sat 97%. GENERAL: Slept about 7 hours last night. The patient's appetite is fair. LABORATORY DATA: The patient's lab reviewed. CURRENT MEDICATIONS: The patient's current medications include Depakote 250 mg daily, Zoloft 150 mg daily, Seroquel 25 mg 4 times daily and olanzapine 2.5 mg q. 4 hours p.r.n. ASSESSMENT: 1. Major depressive disorder with psychotic features. 2. Major neurocognitive disorder, most likely Alzheimer's and vascular with delusions, depression, behavioral disturbances. PLAN: To continue treatment. LENGTH OF STAY: Five to seven days, awaiting for placement. BOLA DR: Fabio TID: [id number]
[2021-06-18 06:23] VITALS: BP 154/69
[2021-06-18] MEDS: DIVALPROEX 125 MG CAP.SPRINK PO SCH ×2 (08:16→16:57)
[2021-06-18] MEDS: POLYETHYLENE GLYCOL 3350 17 GM PACKET. PO SCH (08:16)
[2021-06-18] MEDS: ASPIRIN CHEWABLE 81 MG TABLET. PO SCH (08:16)
[2021-06-18] MEDS: CHOLECALCIFEROL (VITAMIN D3) 1,000 UNIT TABLET PO SCH (08:17)
[2021-06-18] MEDS: CARBIDOPA/LEVODOPA 25/100MG TABLET PO SCH ×3 (08:17→20:08)
[2021-06-18] MEDS: LACTOBACILLUS RHAMNOSUS GG 1 CAPSULE. PO SCH ×2 (08:17→20:08)
[2021-06-18] MEDS: SERTRALINE 50 MG TABLET. PO SCH (08:17)
[2021-06-18] MEDS: ASCORBIC ACID 500 MG TABLET PO SCH (08:17)
[2021-06-18] MEDS: SENNOSIDES 8.6 MG TABLET PO SCH (08:17)
[2021-06-18] MEDS: QUEtiapine 25 MG TABLET. PO SCH ×4 (08:17→16:58)
[2021-06-18] MEDS: POTASSIUM CHLORIDE 20 MEQ TABLET.ER. PO SCH (08:17)
[2021-06-18] MEDS: NICOTINE 7MG PATCH. TD SCH (08:18)
[2021-06-18] MEDS: IPRATROPIUM BROMIDE 0.06% NASAL SPRAY 15ML BOTTLE NS SCH ×2 (08:18→20:08)
[2021-06-18 15:45] VITALS: BP 115/64
[2021-06-18] MEDS: ATORVASTATIN CALCIUM 10 MG TABLET. PO SCH (20:08)
--- NOTE | 2021-06-19 02:08 | PN ---
DATE: 06/18/2021 SUBJECTIVE: The patient was seen today, met with the staff, chart reviewed and covering for Dr. Cornell. The patient continues to show improvement, not exhibiting any major behavior problems. He tends to isolate himself in his room. The patient still has some involuntary movements of upper and lower extremities. The patient had difficulty with his thinking and processing information slow to respond and most of his conversations monosyllabic. OBSERVATION: VITAL SIGNS: Temperature 97.5, blood pressure 154/69, pulse 77, respirations 16, O2 sat 93%, slept about 10 hours last night. GENERAL: The patient's appetite is fair. LABORATORY DATA: The patient's lab reviewed. CURRENT MEDICATIONS: Include Depakote 250 mg daily, Zoloft 150 mg daily, Seroquel 25 mg 4 times daily and olanzapine 2.5 mg q. 4 hours p.r.n. The patient is not exhibiting any side effects. ASSESSMENT: 1. Major depressive disorder with psychotic features. 2. Neurocognitive disorder, most likely Alzheimer's and vascular with delusions, depression and behavioral disturbances. PLAN: To continue with treatment. LENGTH OF STAY: Five to seven days, awaiting for placement. JENI/SLAVA/RUBIN DR: JENI/dawood TID: [id number]
[2021-06-19 06:31] VITALS: BP 135/73
[2021-06-19] MEDS: SERTRALINE 50 MG TABLET. PO SCH (08:36)
[2021-06-19] MEDS: POTASSIUM CHLORIDE 20 MEQ TABLET.ER. PO SCH (08:36)
[2021-06-19] MEDS: LACTOBACILLUS RHAMNOSUS GG 1 CAPSULE. PO SCH ×2 (08:36→20:35)
[2021-06-19] MEDS: DIVALPROEX 125 MG CAP.SPRINK PO SCH ×2 (08:37→16:11)
[2021-06-19] MEDS: QUEtiapine 25 MG TABLET. PO SCH ×4 (08:37→17:13)
[2021-06-19] MEDS: ASPIRIN CHEWABLE 81 MG TABLET. PO SCH (08:37)
[2021-06-19] MEDS: CARBIDOPA/LEVODOPA 25/100MG TABLET PO SCH ×3 (08:37→20:35)
[2021-06-19] MEDS: SENNOSIDES 8.6 MG TABLET PO SCH (08:37)
[2021-06-19] MEDS: POLYETHYLENE GLYCOL 3350 17 GM PACKET. PO SCH (08:37)
[2021-06-19] MEDS: CHOLECALCIFEROL (VITAMIN D3) 1,000 UNIT TABLET PO SCH (08:37)
[2021-06-19] MEDS: ASCORBIC ACID 500 MG TABLET PO SCH (08:37)
[2021-06-19] MEDS: NICOTINE 7MG PATCH. TD SCH (08:40)
[2021-06-19] MEDS: IPRATROPIUM BROMIDE 0.06% NASAL SPRAY 15ML BOTTLE NS SCH ×2 (09:07→20:35)
[2021-06-19 15:43] VITALS: BP 108/71
[2021-06-19] MEDS: ATORVASTATIN CALCIUM 10 MG TABLET. PO SCH (20:35)
--- NOTE | 2021-06-19 22:01 | PDOC ---
Exam Note: Daren Note: Please also refer to the separate dictated note~for this date of service dictated separately.~Patient seen individually. Discussed the patient with Nursing staff reviewed the chart.~Reviewed interim history and current functioning. Reviewed vital signs,~Labs/ Radiology~and current medications noted below. Continue current treatment with the changes noted in the dictated addendum note Assessment: Vital Signs/I&O: Vital Signs Date Time Temp Pulse Resp B/P (MAP) Pulse Ox O2 Delivery O2 Flow Rate FiO2 06/19/21 15:43 97.9 96 20 108/71 (83) 97 06/16/21 15:47 Room Air I & O 06/18/21 06/18/21 06/19/21 14:59 22:59 06:59 Intake Total 600 ml 600 ml Balance 600 ml 600 ml Current Medications: Meds: Current Medications Medications (Trade) Dose Ordered Sig/Daisy Route PRN Reason Start Time Stop Time Status Last Admin Dose Admin Acetaminophen (Tylenol) 650 mg PRN Q6HRS PRN PO MILD PAIN / TEMP > 100.3'F 05/11/21 16:15 Multi-Ingredient Ointment (Analgesic [place]) 1 eva PRN QID PRN TP MUSCLE PAIN 05/11/21 16:15 Al Hydroxide/Mg Hydroxide (Mylanta Plus Xs) 15 ml PRN AFTMEALHC PRN PO DYSPEPSIA 05/11/21 16:15 Magnesium Hydroxide (Milk Of Magnesia) 2,400 mg PRN QHS PRN PO CONSTIPATION 05/11/21 16:15 Nicotine (Nicoderm Cq 14mg Patch) 1 patch DAILY TD 05/12/21 09:00 05/30/21 17:27 DC 05/29/21 08:46 Ascorbic Acid (Vitamin C) 500 mg DAILY PO 05/12/21 09:00 06/19/21 08:37 Aspirin (Aspirin Chewable) 81 mg DAILY PO 05/12/21 09:00 06/19/21 08:37 Nicotine (Nicoderm Cq 14mg Patch) 1 patch DAILY TD 05/12/21 09:00 UNV Potassium Chloride (Klor-Con) 40 meq DAILY PO 05/12/21 09:00 06/19/21 08:36 Sennosides (Senna) 8.6 mg DAILY PO 05/12/21 09:00 06/19/21 08:37 Sertraline HCl (Zoloft) 125 mg DAILY PO 05/12/21 09:00 05/18/21 18:20 DC 05/18/21 08:59 Vitamin D (Vitamin D3) 1,000 unit DAILY PO 05/12/21 09:00 06/19/21 08:37 Cyanocobalamin (Vitamin B-12) 1,000 mcg [id number] PO 05/12/21 09:00 06/09/21 08:29 Polyethylene Glycol (miraLAX) 17 gm DAILY PO 05/12/21 09:00 06/19/21 08:37 Atorvastatin Calcium (Lipitor) 10 mg QHS PO 05/12/21 21:00 06/19/21 20:35 Quetiapine Fumarate (SEROquel) 25 mg PRN BID PRN PO AGITATION 05/12/21 07:15 05/19/21 19:14 DC 05/19/21 09:35 Divalproex Sodium (Depakote Sprinkles) 125 mg [id number] PO 05/12/21 09:00 05/12/21 16:01 DC 05/12/21 08:19 Ipratropium [place] (Atrovent Nasal) 1 spray BID NS 05/12/21 09:00 06/19/21 20:35 Divalproex Sodium (Depakote Sprinkles) 250 mg [id number] PO 05/12/21 16:00 05/16/21 18:09 DC 05/16/21 15:00 Cefdinir (Omnicef) 300 mg BID PO 05/14/21 21:00 05/20/21 22:00 DC 05/20/21 21:00 Lactobacillus Rhamnosus (Culturelle) 1 cap BID PO 05/14/21 21:00 06/19/21 20:35 Carbidopa/Levodopa (Sinemet 25/100) 1 tab TID PO 05/15/21 21:00 06/19/21 20:35 Divalproex Sodium (Depakote Sprinkles) 375 mg [id number] PO 05/17/21 09:00 05/27/21 19:14 DC 05/27/21 14:52 Sertraline HCl (Zoloft) 150 mg DAILY PO 05/19/21 09:00 06/01/21 11:53 DC 06/01/21 09:01 Quetiapine Fumarate (SEROquel) 25 mg 0900,1700 PO 05/20/21 09:00 05/23/21 18:17 DC 05/23/21 17:00 Olanzapine (ZyPREXA ZYDIS) 2.5 mg PRN Q2HR PRN PO PSYCHOSIS 05/20/21 10:00 06/15/21 08:58 Quetiapine Fumarate (SEROquel) 25 mg 0900,1300,1700 PO 05/24/21 09:00 05/25/21 11:57 DC 05/25/21 09:00 Quetiapine Fumarate (SEROquel) 25 mg 0900,1200,1500,1800 PO 05/25/21 12:00 06/19/21 17:13 Divalproex Sodium (Depakote Sprinkles) 500 mg [id number] PO 05/28/21 09:00 06/07/21 17:03 DC 06/07/21 08:54 Nicotine (Nicoderm Cq 7mg Patch) 1 patch DAILY TD 05/31/21 09:00 06/19/21 08:40 Sertraline HCl (Zoloft) 175 mg DAILY PO 06/02/21 09:00 06/19/21 08:36 Divalproex Sodium (Depakote Sprinkles) 250 mg [id number] PO 06/08/21 09:00 06/07/21 17:07 DC Divalproex Sodium (Depakote Sprinkles) 250 mg BID94 PO 06/07/21 17:15 06/19/21 16:11 Artificial Tears (Artificial Tears) 1 drop PRN Q4HRS PRN OS DRY EYE 06/11/21 16:00 06/11/21 18:00 I have reviewed the current psychotropics carefully including drug interactions. Risk benefit ratio favors no change other than as noted in my dictated progress note. Diagnosis: Problems: (1) Impulse control disorder, unspecified (2) Major depressive disorder, severe (3) Anxiety disorder, unspecified (4) Dementia, vascular, with depression (5) Dementia, vascular, with delusions (6) Dementia in Alzheimer's disease with depression (7) Dementia in Alzheimer's disease with delusions (8) Dementia of the Alzheimer's type with early onset with behavioral disturbance (9) Major neurocognitive disorder (10) Mild cognitive impairment MICHAEL MCKEON MD Jun 19, 2021 22:01
[2021-06-20 06:34] VITALS: BP 123/68
[2021-06-20] MEDS: IPRATROPIUM BROMIDE 0.06% NASAL SPRAY 15ML BOTTLE NS SCH ×2 (08:29→19:37)
[2021-06-20] MEDS: POLYETHYLENE GLYCOL 3350 17 GM PACKET. PO SCH (08:29)
[2021-06-20] MEDS: CHOLECALCIFEROL (VITAMIN D3) 1,000 UNIT TABLET PO SCH (08:30)
[2021-06-20] MEDS: ASCORBIC ACID 500 MG TABLET PO SCH (08:30)
[2021-06-20] MEDS: NICOTINE 7MG PATCH. TD SCH (08:30)
[2021-06-20] MEDS: ASPIRIN CHEWABLE 81 MG TABLET. PO SCH (08:30)
[2021-06-20] MEDS: POTASSIUM CHLORIDE 20 MEQ TABLET.ER. PO SCH (08:31)
[2021-06-20] MEDS: SERTRALINE 50 MG TABLET. PO SCH (08:31)
[2021-06-20] MEDS: SENNOSIDES 8.6 MG TABLET PO SCH (08:31)
[2021-06-20] MEDS: QUEtiapine 25 MG TABLET. PO SCH ×4 (08:32→17:17)
[2021-06-20] MEDS: CARBIDOPA/LEVODOPA 25/100MG TABLET PO SCH ×3 (08:32→19:37)
[2021-06-20] MEDS: LACTOBACILLUS RHAMNOSUS GG 1 CAPSULE. PO SCH ×2 (08:32→19:37)
[2021-06-20] MEDS: DIVALPROEX 125 MG CAP.SPRINK PO SCH ×2 (08:32→16:41)
[2021-06-20 15:53] VITALS: BP 102/64
[2021-06-20] MEDS: ATORVASTATIN CALCIUM 10 MG TABLET. PO SCH (19:37)
--- NOTE | 2021-06-20 21:22 | PDOC ---
Exam Note: Daren Note: Please also refer to the separate dictated note~for this date of service dictated separately.~Patient seen individually. Discussed the patient with Nursing staff reviewed the chart.~Reviewed interim history and current functioning. Reviewed vital signs,~Labs/ Radiology~and current medications noted below. Continue current treatment with the changes noted in the dictated addendum note Assessment: Vital Signs/I&O: Vital Signs Date Time Temp Pulse Resp B/P (MAP) Pulse Ox O2 Delivery O2 Flow Rate FiO2 06/20/21 15:53 98.4 77 16 102/64 (77) 97 06/16/21 15:47 Room Air I & O 06/19/21 06/19/21 06/20/21 15:00 23:00 07:00 Intake Total 600 ml 600 ml Balance 600 ml 600 ml Labs: Laboratory Tests Test 06/20/21 06:35 POC SARS CoV-2 Antigen Negative (NEGATIVE) Current Medications: Meds: Laboratory Tests Test 06/20/21 06:35 POC SARS CoV-2 Antigen Negative Current Medications Medications (Trade) Dose Ordered Sig/Daisy Route PRN Reason Start Time Stop Time Status Last Admin Dose Admin Acetaminophen (Tylenol) 650 mg PRN Q6HRS PRN PO MILD PAIN / TEMP > 100.3'F 05/11/21 16:15 Multi-Ingredient Ointment (Analgesic [place]) 1 eva PRN QID PRN TP MUSCLE PAIN 05/11/21 16:15 Al Hydroxide/Mg Hydroxide (Mylanta Plus Xs) 15 ml PRN AFTMEALHC PRN PO DYSPEPSIA 05/11/21 16:15 Magnesium Hydroxide (Milk Of Magnesia) 2,400 mg PRN QHS PRN PO CONSTIPATION 05/11/21 16:15 Nicotine (Nicoderm Cq 14mg Patch) 1 patch DAILY TD 05/12/21 09:00 05/30/21 17:27 DC 05/29/21 08:46 Ascorbic Acid (Vitamin C) 500 mg DAILY PO 05/12/21 09:00 06/20/21 08:30 Aspirin (Aspirin Chewable) 81 mg DAILY PO 05/12/21 09:00 06/20/21 08:30 Nicotine (Nicoderm Cq 14mg Patch) 1 patch DAILY TD 05/12/21 09:00 UNV Potassium Chloride (Klor-Con) 40 meq DAILY PO 05/12/21 09:00 06/20/21 08:31 Sennosides (Senna) 8.6 mg DAILY PO 05/12/21 09:00 06/20/21 08:31 Sertraline HCl (Zoloft) 125 mg DAILY PO 05/12/21 09:00 05/18/21 18:20 DC 05/18/21 08:59 Vitamin D (Vitamin D3) 1,000 unit DAILY PO 05/12/21 09:00 06/20/21 08:30 Cyanocobalamin (Vitamin B-12) 1,000 mcg [id number] PO 05/12/21 09:00 06/09/21 08:29 Polyethylene Glycol (miraLAX) 17 gm DAILY PO 05/12/21 09:00 06/20/21 08:29 Atorvastatin Calcium (Lipitor) 10 mg QHS PO 05/12/21 21:00 06/20/21 19:37 Quetiapine Fumarate (SEROquel) 25 mg PRN BID PRN PO AGITATION 05/12/21 07:15 05/19/21 19:14 DC 05/19/21 09:35 Divalproex Sodium (Depakote Sprinkles) 125 mg [id number] PO 05/12/21 09:00 05/12/21 16:01 DC 05/12/21 08:19 Ipratropium [employer] (Atrovent Nasal) 1 spray BID NS 05/12/21 09:00 06/20/21 19:37 Divalproex Sodium (Depakote Sprinkles) 250 mg [id number] PO 05/12/21 16:00 05/16/21 18:09 DC 05/16/21 15:00 Cefdinir (Omnicef) 300 mg BID PO 05/14/21 21:00 05/20/21 22:00 DC 05/20/21 21:00 Lactobacillus Rhamnosus (Culturelle) 1 cap BID PO 05/14/21 21:00 06/20/21 19:37 Carbidopa/Levodopa (Sinemet 25/100) 1 tab TID PO 05/15/21 21:00 06/20/21 19:37 Divalproex Sodium (Depakote Sprinkles) 375 mg [id number] PO 05/17/21 09:00 05/27/21 19:14 DC 05/27/21 14:52 Sertraline HCl (Zoloft) 150 mg DAILY PO 05/19/21 09:00 06/01/21 11:53 DC 06/01/21 09:01 Quetiapine Fumarate (SEROquel) 25 mg 0900,1700 PO 05/20/21 09:00 05/23/21 18:17 DC 05/23/21 17:00 Olanzapine (ZyPREXA ZYDIS) 2.5 mg PRN Q2HR PRN PO PSYCHOSIS 05/20/21 10:00 06/15/21 08:58 Quetiapine Fumarate (SEROquel) 25 mg 0900,1300,1700 PO 05/24/21 09:00 05/25/21 11:57 DC 05/25/21 09:00 Quetiapine Fumarate (SEROquel) 25 mg 0900,1200,1500,1800 PO 05/25/21 12:00 06/20/21 17:17 Divalproex Sodium (Depakote Sprinkles) 500 mg BID94 PO 05/28/21 09:00 06/07/21 17:03 DC 06/07/21 08:54 Nicotine (Nicoderm Cq 7mg Patch) 1 patch DAILY TD 05/31/21 09:00 06/20/21 08:30 Sertraline HCl (Zoloft) 175 mg DAILY PO 06/02/21 09:00 06/20/21 08:31 Divalproex Sodium (Depakote Sprinkles) 250 mg [id number] PO 06/08/21 09:00 06/07/21 17:07 DC Divalproex Sodium (Depakote Sprinkles) 250 mg [id number] PO 06/07/21 17:15 06/20/21 16:41 Artificial Tears (Artificial Tears) 1 drop PRN Q4HRS PRN OS DRY EYE 06/11/21 16:00 06/11/21 18:00 I have reviewed the current psychotropics carefully including drug interactions. Risk benefit ratio favors no change other than as noted in my dictated progress note. Diagnosis: Problems: (1) Impulse control disorder, unspecified (2) Major depressive disorder, severe (3) Anxiety disorder, unspecified (4) Dementia, vascular, with depression (5) Dementia, vascular, with delusions (6) Dementia in Alzheimer's disease with depression (7) Dementia in Alzheimer's disease with delusions (8) Dementia of the Alzheimer's type with early onset with behavioral disturbance (9) Major neurocognitive disorder (10) Mild cognitive impairment MICHAEL MCKEON MD Jun 20, 2021 21:22
[2021-06-21 06:09] VITALS: BP 105/66
[2021-06-21] MEDS: ASCORBIC ACID 500 MG TABLET PO SCH (08:09)
[2021-06-21] MEDS: NICOTINE 7MG PATCH. TD SCH (08:09)
[2021-06-21] MEDS: DIVALPROEX 125 MG CAP.SPRINK PO SCH ×2 (08:09→16:28)
[2021-06-21] MEDS: CARBIDOPA/LEVODOPA 25/100MG TABLET PO SCH ×3 (08:09→19:45)
[2021-06-21] MEDS: POTASSIUM CHLORIDE 20 MEQ TABLET.ER. PO SCH (08:10)
[2021-06-21] MEDS: QUEtiapine 25 MG TABLET. PO SCH ×4 (08:10→17:20)
[2021-06-21] MEDS: ASPIRIN CHEWABLE 81 MG TABLET. PO SCH (08:10)
[2021-06-21] MEDS: SERTRALINE 50 MG TABLET. PO SCH (08:12)
[2021-06-21] MEDS: LACTOBACILLUS RHAMNOSUS GG 1 CAPSULE. PO SCH ×2 (08:13→19:45)
[2021-06-21] MEDS: POLYETHYLENE GLYCOL 3350 17 GM PACKET. PO SCH (08:13)
[2021-06-21] MEDS: CHOLECALCIFEROL (VITAMIN D3) 1,000 UNIT TABLET PO SCH (08:13)
[2021-06-21] MEDS: IPRATROPIUM BROMIDE 0.06% NASAL SPRAY 15ML BOTTLE NS SCH ×2 (08:13→19:45)
[2021-06-21] MEDS: SENNOSIDES 8.6 MG TABLET PO SCH (08:13)
--- NOTE | 2021-06-21 08:30 | PDOC ---
Exam Note: Daren Note: This note is a late entry for 06/19/2021 covers elements not covered in my initial note. Subjective: The patient was seen individually on 06/19/2021, discussed and reviewed the chart with Deep MATIAS. The patient slept 8 hours previous night. Overall the patient does reasonably well till one of the other demented patient gets into his room and then he gets irritable. I met with him in his room in the evening. He was lying in bed. Review of Systems: Impaired ambulation impaired, in wheelchair. He does have movement disorder. No CV, , pulmonary, eye system symptoms on review. Mental Status Exam: The patient is oriented to himself and situation. Speech has some latency, at times difficult to understand. Abstraction fair. Computation impaired. Language function intact. Mood and affect withdrawn. Laboratory Data: Reviewed. 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 Anxiety disorder unspecified. Impulse control disorder unspecified. Plan: No change from initial note. Assessment: Vital Signs/I&O: Vital Signs Date Time Temp Pulse Resp B/P (MAP) Pulse Ox O2 Delivery O2 Flow Rate FiO2 06/21/21 06:09 97.4 70 18 105/66 (79) 98 06/16/21 15:47 Room Air I & O 06/20/21 06/20/21 06/21/21 15:00 23:00 07:00 Intake Total 720 ml 360 ml Balance 720 ml 360 ml Current Medications: I have reviewed the current psychotropics carefully including drug interactions. Risk benefit ratio favors no change other than as noted in my dictated progress note. Diagnosis: Problems: (1) Impulse control disorder, unspecified (2) Major depressive disorder, severe (3) Anxiety disorder, unspecified (4) Dementia, vascular, with depression (5) Dementia, vascular, with delusions (6) Dementia in Alzheimer's disease with depression (7) Dementia in Alzheimer's disease with delusions (8) Dementia of the Alzheimer's type with early onset with behavioral disturbance (9) Major neurocognitive disorder (10) Mild cognitive impairment MICHAEL MCKEON MD Jun 21, 2021 08:30
--- NOTE | 2021-06-21 08:48 | PDOC ---
Exam Note: Daren Note: This note is a late entry for 06/20/2021 covers elements not covered in my initial note. Subjective: The patient was seen individually on 06/20/2021, discussed and reviewed the chart with Deep MATIAS. The patient slept 6-3/4 hours previous night. Overall the patient has had a better day today. He has been incontinent at times. I met with him in the dining room. He has not been yelling, agitated. He is eating his supper quite well. Review of Systems: Impaired ambulation impaired, in wheelchair. He does have movement disorder. No CV, , pulmonary, eye system symptoms on review. Mental Status Exam: The patient is oriented to himself and situation. Speech has some latency, at times difficult to understand. Abstraction fair. Computation impaired. Language function intact. Mood and affect withdrawn. Laboratory Data: Reviewed. 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 Anxiety disorder unspecified. Impulse control disorder unspecified. Plan: We will adjust psychotropics further as clinically indicated. Social service staff is actively looking for placement for him. Assessment: Vital Signs/I&O: Vital Signs Date Time Temp Pulse Resp B/P (MAP) Pulse Ox O2 Delivery O2 Flow Rate FiO2 06/21/21 06:09 97.4 70 18 105/66 (79) 98 06/16/21 15:47 Room Air I & O 06/20/21 06/20/21 06/21/21 15:00 23:00 07:00 Intake Total 720 ml 360 ml Balance 720 ml 360 ml Current Medications: I have reviewed the current psychotropics carefully including drug interactions. Risk benefit ratio favors no change other than as noted in my dictated progress note. Diagnosis: Problems: (1) Impulse control disorder, unspecified (2) Major depressive disorder, severe (3) Anxiety disorder, unspecified (4) Dementia, vascular, with depression (5) Dementia, vascular, with delusions (6) Dementia in Alzheimer's disease with depression (7) Dementia in Alzheimer's disease with delusions (8) Dementia of the Alzheimer's type with early onset with behavioral disturbance (9) Major neurocognitive disorder (10) Mild cognitive impairment MICHAEL MCKEON MD Jun 21, 2021 08:48
[2021-06-21] MEDS: ATORVASTATIN CALCIUM 10 MG TABLET. PO SCH (19:45)
--- NOTE | 2021-06-21 21:11 | PDOC ---
Exam Note: Daren Note: Please also refer to the separate dictated note~for this date of service dictated separately.~Patient seen individually. Discussed the patient with Nursing staff reviewed the chart.~Reviewed interim history and current functioning. Reviewed vital signs,~Labs/ Radiology~and current medications noted below. Continue current treatment with the changes noted in the dictated addendum note Assessment: Vital Signs/I&O: Vital Signs Date Time Temp Pulse Resp B/P (MAP) Pulse Ox O2 Delivery O2 Flow Rate FiO2 06/21/21 06:09 97.4 70 18 105/66 (79) 98 06/16/21 15:47 Room Air I & O 06/20/21 06/20/21 06/21/21 14:59 22:59 06:59 Intake Total 720 ml 360 ml Balance 720 ml 360 ml Current Medications: Meds: Current Medications Medications (Trade) Dose Ordered Sig/Daisy Route PRN Reason Start Time Stop Time Status Last Admin Dose Admin Acetaminophen (Tylenol) 650 mg PRN Q6HRS PRN PO MILD PAIN / TEMP > 100.3'F 05/11/21 16:15 Multi-Ingredient Ointment (Analgesic [place]) 1 eva PRN QID PRN TP MUSCLE PAIN 05/11/21 16:15 Al Hydroxide/Mg Hydroxide (Mylanta Plus Xs) 15 ml PRN AFTMEALHC PRN PO DYSPEPSIA 05/11/21 16:15 Magnesium Hydroxide (Milk Of Magnesia) 2,400 mg PRN QHS PRN PO CONSTIPATION 05/11/21 16:15 Nicotine (Nicoderm Cq 14mg Patch) 1 patch DAILY TD 05/12/21 09:00 05/30/21 17:27 DC 05/29/21 08:46 Ascorbic Acid (Vitamin C) 500 mg DAILY PO 05/12/21 09:00 06/21/21 08:09 Aspirin (Aspirin Chewable) 81 mg DAILY PO 05/12/21 09:00 06/21/21 08:10 Nicotine (Nicoderm Cq 14mg Patch) 1 patch DAILY TD 05/12/21 09:00 UNV Potassium Chloride (Klor-Con) 40 meq DAILY PO 05/12/21 09:00 06/21/21 08:10 Sennosides (Senna) 8.6 mg DAILY PO 05/12/21 09:00 06/21/21 08:13 Sertraline HCl (Zoloft) 125 mg DAILY PO 05/12/21 09:00 05/18/21 18:20 DC 05/18/21 08:59 Vitamin D (Vitamin D3) 1,000 unit DAILY PO 05/12/21 09:00 06/21/21 08:13 Cyanocobalamin (Vitamin B-12) 1,000 mcg [id number] PO 05/12/21 09:00 06/09/21 08:29 Polyethylene Glycol (miraLAX) 17 gm DAILY PO 05/12/21 09:00 06/21/21 08:13 Atorvastatin Calcium (Lipitor) 10 mg QHS PO 05/12/21 21:00 06/21/21 19:45 Quetiapine Fumarate (SEROquel) 25 mg PRN BID PRN PO AGITATION 05/12/21 07:15 05/19/21 19:14 DC 05/19/21 09:35 Divalproex Sodium (Depakote Sprinkles) 125 mg [id number] PO 05/12/21 09:00 05/12/21 16:01 DC 05/12/21 08:19 Ipratropium [place] (Atrovent Nasal) 1 spray BID NS 05/12/21 09:00 06/21/21 19:45 Divalproex Sodium (Depakote Sprinkles) 250 mg [id number] PO 05/12/21 16:00 05/16/21 18:09 DC 05/16/21 15:00 Cefdinir (Omnicef) 300 mg BID PO 05/14/21 21:00 05/20/21 22:00 DC 05/20/21 21:00 Lactobacillus Rhamnosus (Culturelle) 1 cap BID PO 05/14/21 21:00 06/21/21 19:45 Carbidopa/Levodopa (Sinemet 25/100) 1 tab TID PO 05/15/21 21:00 06/21/21 19:45 Divalproex Sodium (Depakote Sprinkles) 375 mg [id number] PO 05/17/21 09:00 05/27/21 19:14 DC 05/27/21 14:52 Sertraline HCl (Zoloft) 150 mg DAILY PO 05/19/21 09:00 06/01/21 11:53 DC 06/01/21 09:01 Quetiapine Fumarate (SEROquel) 25 mg 0900,1700 PO 05/20/21 09:00 05/23/21 18:17 DC 05/23/21 17:00 Olanzapine (ZyPREXA ZYDIS) 2.5 mg PRN Q2HR PRN PO PSYCHOSIS 05/20/21 10:00 06/15/21 08:58 Quetiapine Fumarate (SEROquel) 25 mg 0900,1300,1700 PO 05/24/21 09:00 05/25/21 11:57 DC 05/25/21 09:00 Quetiapine Fumarate (SEROquel) 25 mg 0900,1200,1500,1800 PO 05/25/21 12:00 06/21/21 17:20 Divalproex Sodium (Depakote Sprinkles) 500 mg [id number] PO 05/28/21 09:00 06/07/21 17:03 DC 06/07/21 08:54 Nicotine (Nicoderm Cq 7mg Patch) 1 patch DAILY TD 05/31/21 09:00 06/21/21 08:09 Sertraline HCl (Zoloft) 175 mg DAILY PO 06/02/21 09:00 06/21/21 08:12 Divalproex Sodium (Depakote Sprinkles) 250 mg [id number] PO 06/08/21 09:00 06/07/21 17:07 DC Divalproex Sodium (Depakote Sprinkles) 250 mg [id number] PO 06/07/21 17:15 06/21/21 16:28 Artificial Tears (Artificial Tears) 1 drop PRN Q4HRS PRN OS DRY EYE 06/11/21 16:00 06/11/21 18:00 I have reviewed the current psychotropics carefully including drug interactions. Risk benefit ratio favors no change other than as noted in my dictated progress note. Diagnosis: Problems: (1) Impulse control disorder, unspecified (2) Major depressive disorder, severe (3) Anxiety disorder, unspecified (4) Dementia, vascular, with depression (5) Dementia, vascular, with delusions (6) Dementia in Alzheimer's disease with depression (7) Dementia in Alzheimer's disease with delusions (8) Dementia of the Alzheimer's type with early onset with behavioral disturbance (9) Major neurocognitive disorder (10) Major depressive disorder, recurrent episode (11) Mild cognitive impairment MICHAEL MCKEON MD Jun 21, 2021 21:11
[2021-06-21 23:02] VITALS: BP 155/82
[2021-06-22 06:08] VITALS: BP 154/68
[2021-06-22] MEDS: SENNOSIDES 8.6 MG TABLET PO SCH (08:04)
[2021-06-22] MEDS: LACTOBACILLUS RHAMNOSUS GG 1 CAPSULE. PO SCH ×2 (08:04→20:33)
[2021-06-22] MEDS: QUEtiapine 25 MG TABLET. PO SCH ×4 (08:04→17:11)
[2021-06-22] MEDS: ASPIRIN CHEWABLE 81 MG TABLET. PO SCH (08:04)
[2021-06-22] MEDS: POTASSIUM CHLORIDE 20 MEQ TABLET.ER. PO SCH (08:04)
[2021-06-22] MEDS: DIVALPROEX 125 MG CAP.SPRINK PO SCH ×2 (08:05→15:10)
[2021-06-22] MEDS: CHOLECALCIFEROL (VITAMIN D3) 1,000 UNIT TABLET PO SCH (08:05)
[2021-06-22] MEDS: SERTRALINE 50 MG TABLET. PO SCH (08:05)
[2021-06-22] MEDS: NICOTINE 7MG PATCH. TD SCH (08:05)
[2021-06-22] MEDS: CARBIDOPA/LEVODOPA 25/100MG TABLET PO SCH ×3 (08:05→20:33)
[2021-06-22] MEDS: IPRATROPIUM BROMIDE 0.06% NASAL SPRAY 15ML BOTTLE NS SCH ×2 (08:06→20:32)
[2021-06-22] MEDS: ASCORBIC ACID 500 MG TABLET PO SCH (08:07)
[2021-06-22] MEDS: POLYETHYLENE GLYCOL 3350 17 GM PACKET. PO SCH (08:07)
--- NOTE | 2021-06-22 12:09 | TX PLAN ---
Interdisciplinary Tx Plan Admission Information May 11, 2021 at 14:29 Legal Status (on Admission): Voluntary DPOA/Guardian Name: Milvia patel Contact Other Contact Name: Mercedes LUND Other Contact Verified Code Status: Full Code Allergies: Coded Allergies: No Known Drug Allergies (Unverified , 02/17/20) Diagnoses Primary Diagnosis: Dementia, Vascular with Depression and BD Reasons for Admission: Depressed, Suicidal attempt, Poor impulse control Problem in Patient's Words: Concerned that he may need a higher level of care Additional Admission Comments: According to the intake, pt has acute suicidal ideations, attempted to drown himself in a pond, depressed, poor intake and refusing meds. Eloped from the facility, aggressive when doesn't want to do something Problems Active Problems: Withdrawn Inactive Problems: Medication complaint Pt Strengths/Limitations Ability for [place]: Poor Cognitive Functioning/Ability: Fair Communication Skills/Ability: Fair Financial Resources: Fair Insight/Judgement: Poor Intellectual Ability: Fair Physical Health: Poor Social Skills: Fair Stability in Family: Fair Stability in School/Work: Poor Verbal Skills: Fair Discharge Criteria Discharge Criteria: No need for close observ., Adequate arrangements @DC, Improved behavior, Improved mood/thought Preliminary Discharge Plan Preliminary DC Plan: Current Living Arrange. Special Precautions Fall Risk: Moderate Initial D/C Plan Pt to return to [facility] once stable. Identified Discharge Needs: Psychiatric care needs Currently Utilized Resources Currently Utilized Resources/P: Services through the [facility] Identified Problems/Hx/Goals Objectives/Short-Term Goals Short Term Goals: No Suicidal/Serjio. ideation Short Term Goals in Patient's: N/A Interventions/Frequency Staff Interventions/Frequency&: Psychiatrist to assess pt at least 3x per week for medication management. Social Work to assess pt at least 2x per week to identify barriers to care and discharge planning. Nursing to assess medication effects, behavior modification and completion of 15 minute checks. Encourage participation in group activities (if applicable) or 1:1 engagement based off activity dept goals. History Vocational History: Pt worked for the [employer] for the [employer] for many years. Retired due to "not liking people". Education: Pt graduated HS 12th grade Community Follow-up Will continue services through the [place] Treatment Plan Explained Patient/Transmission Supervisor had this treatment plan explained to him/her as indicated by the signature below and has been given the opportunity to ask questions and make suggestions: Date: Patient/Transmission Supervisor Signature: Status Update Update WEEKLY NOTE/UPDATE: Marcello is averaging 100% of meal intakes and receives double portions. He is averaging 7.5 hours of sleep at night. He has been more awake the last few days and has been calling for transfer assistance as recommended by staff to decrease fall risk. Marcello has been pleasant with interactions with staff. He tends to be withdrawn to his room and has not been involved in recreational therapy activities. He continues to deny that the pond incident was a suicide attempt. Marcello is stable for discharge once placement is secured. This SW attended team meeting today on behalf of assigned Yeison ROMAN. ELIO SOLORIO 10, 2022 12:09
[2021-06-22 16:27] VITALS: BP 127/72
[2021-06-22] MEDS: ATORVASTATIN CALCIUM 10 MG TABLET. PO SCH (20:33)
--- NOTE | 2021-06-22 21:34 | PDOC ---
Exam Note: Daren Note: Please also refer to the separate dictated note~for this date of service dictated separately.~Patient seen individually. Discussed the patient with Nursing staff reviewed the chart.~Reviewed interim history and current functioning. Reviewed vital signs,~Labs/ Radiology~and current medications noted below. Continue current treatment with the changes noted in the dictated addendum note Assessment: Vital Signs/I&O: Vital Signs Date Time Temp Pulse Resp B/P (MAP) Pulse Ox O2 Delivery O2 Flow Rate FiO2 06/22/21 16:27 97.6 74 18 127/72 (90) 97 06/22/21 06:08 Room Air I & O 06/21/21 06/21/21 06/22/21 15:00 23:00 07:00 Intake Total 600 ml 360 ml Balance 600 ml 360 ml Current Medications: Meds: Current Medications Medications (Trade) Dose Ordered Sig/Daisy Route PRN Reason Start Time Stop Time Status Last Admin Dose Admin Acetaminophen (Tylenol) 650 mg PRN Q6HRS PRN PO MILD PAIN / TEMP > 100.3'F 05/11/21 16:15 Multi-Ingredient Ointment (Analgesic [place]) 1 eva PRN QID PRN TP MUSCLE PAIN 05/11/21 16:15 Al Hydroxide/Mg Hydroxide (Mylanta Plus Xs) 15 ml PRN AFTMEALHC PRN PO DYSPEPSIA 05/11/21 16:15 Magnesium Hydroxide (Milk Of Magnesia) 2,400 mg PRN QHS PRN PO CONSTIPATION 05/11/21 16:15 Nicotine (Nicoderm Cq 14mg Patch) 1 patch DAILY TD 05/12/21 09:00 05/30/21 17:27 DC 05/29/21 08:46 Ascorbic Acid (Vitamin C) 500 mg DAILY PO 05/12/21 09:00 06/22/21 08:07 Aspirin (Aspirin Chewable) 81 mg DAILY PO 05/12/21 09:00 06/22/21 08:04 Nicotine (Nicoderm Cq 14mg Patch) 1 patch DAILY TD 05/12/21 09:00 UNV Potassium Chloride (Klor-Con) 40 meq DAILY PO 05/12/21 09:00 06/22/21 08:04 Sennosides (Senna) 8.6 mg DAILY PO 05/12/21 09:00 06/22/21 08:04 Sertraline HCl (Zoloft) 125 mg DAILY PO 05/12/21 09:00 05/18/21 18:20 DC 05/18/21 08:59 Vitamin D (Vitamin D3) 1,000 unit DAILY PO 05/12/21 09:00 06/22/21 08:05 Cyanocobalamin (Vitamin B-12) 1,000 mcg [id number] PO 05/12/21 09:00 06/09/21 08:29 Polyethylene Glycol (miraLAX) 17 gm DAILY PO 05/12/21 09:00 06/22/21 08:07 Atorvastatin Calcium (Lipitor) 10 mg QHS PO 05/12/21 21:00 06/22/21 20:33 Quetiapine Fumarate (SEROquel) 25 mg PRN BID PRN PO AGITATION 05/12/21 07:15 05/19/21 19:14 DC 05/19/21 09:35 Divalproex Sodium (Depakote Sprinkles) 125 mg [id number] PO 05/12/21 09:00 05/12/21 16:01 DC 05/12/21 08:19 Ipratropium [place] (Atrovent Nasal) 1 spray BID NS 05/12/21 09:00 06/22/21 20:32 Divalproex Sodium (Depakote Sprinkles) 250 mg [id number] PO 05/12/21 16:00 05/16/21 18:09 DC 05/16/21 15:00 Cefdinir (Omnicef) 300 mg BID PO 05/14/21 21:00 05/20/21 22:00 DC 05/20/21 21:00 Lactobacillus Rhamnosus (Culturelle) 1 cap BID PO 05/14/21 21:00 06/22/21 20:33 Carbidopa/Levodopa (Sinemet 25/100) 1 tab TID PO 05/15/21 21:00 06/22/21 20:33 Divalproex Sodium (Depakote Sprinkles) 375 mg [id number] PO 05/17/21 09:00 05/27/21 19:14 DC 05/27/21 14:52 Sertraline HCl (Zoloft) 150 mg DAILY PO 05/19/21 09:00 06/01/21 11:53 DC 06/01/21 09:01 Quetiapine Fumarate (SEROquel) 25 mg 0900,1700 PO 05/20/21 09:00 05/23/21 18:17 DC 05/23/21 17:00 Olanzapine (ZyPREXA ZYDIS) 2.5 mg PRN Q2HR PRN PO PSYCHOSIS 05/20/21 10:00 06/15/21 08:58 Quetiapine Fumarate (SEROquel) 25 mg 0900,1300,1700 PO 05/24/21 09:00 05/25/21 11:57 DC 05/25/21 09:00 Quetiapine Fumarate (SEROquel) 25 mg 0900,1200,1500,1800 PO 05/25/21 12:00 06/22/21 17:11 Divalproex Sodium (Depakote Sprinkles) 500 mg BID94 PO 05/28/21 09:00 06/07/21 17:03 DC 06/07/21 08:54 Nicotine (Nicoderm Cq 7mg Patch) 1 patch DAILY TD 05/31/21 09:00 06/22/21 08:05 Sertraline HCl (Zoloft) 175 mg DAILY PO 06/02/21 09:00 06/22/21 08:05 Divalproex Sodium (Depakote Sprinkles) 250 mg [id number] PO 06/08/21 09:00 06/07/21 17:07 DC Divalproex Sodium (Depakote Sprinkles) 250 mg BID94 PO 06/07/21 17:15 06/22/21 15:10 Artificial Tears (Artificial Tears) 1 drop PRN Q4HRS PRN OS DRY EYE 06/11/21 16:00 06/11/21 18:00 I have reviewed the current psychotropics carefully including drug interactions. Risk benefit ratio favors no change other than as noted in my dictated progress note. Diagnosis: Problems: (1) Impulse control disorder, unspecified (2) Major depressive disorder, severe (3) Anxiety disorder, unspecified (4) Dementia, vascular, with depression (5) Dementia, vascular, with delusions (6) Dementia in Alzheimer's disease with depression (7) Dementia in Alzheimer's disease with delusions (8) Dementia of the Alzheimer's type with early onset with behavioral disturbance (9) Major neurocognitive disorder (10) Mild cognitive impairment MICHAEL MCKEON MD Jun 22, 2021 21:34
[2021-06-23 06:12] VITALS: BP 132/74
[2021-06-23 06:27] LABS: BASO % 1 % (0-3); EOS # 0.1 x10^3/uL (0.0-0.7); EOS % 2 % (0-3); HEMATOCRIT 39.8 % (39.0-53.0); HEMOGLOBIN 13.4 g/dL (13.0-17.5); LYMPH # 0.9 x10^3/uL (1.0-4.8); LYMPH % 21 % (24-48); MEAN CORPUSCULAR HEMOGLOBIN 32 pg (25-35); MEAN CORPUSCULAR HGB CONC 34 g/dL (31-37); MEAN CORPUSCULAR VOLUME 96 fL (79-100); MONO # 0.4 x10^3/uL (0.0-1.1); MONO % 8 % (0-9); NEUT # 3.1 x10^3uL (1.8-7.7); NEUT % 69 % (31-73); PLATELET COUNT 122 x10^3/uL (140-400); RED BLOOD COUNT 4.16 x10^6/uL (4.30-5.70); RED CELL DISTRIBUTION WIDTH 14.5 % (11.5-14.5); WHITE BLOOD COUNT 4.4 x10^3/uL (4.0-11.0)
[2021-06-23 06:50] LABS: ALBUMIN 3.4 g/dL (3.4-5.0); ALBUMIN/GLOBULIN RATIO 1.2 (1.0-1.7); CALCIUM 8.3 mg/dL (8.5-10.1); CREATININE 0.7 mg/dL (0.7-1.3); GFR 110.5; POTASSIUM 4.1 mmol/L (3.5-5.1); TOTAL BILIRUBIN 0.4 mg/dL (0.2-1.0); TOTAL PROTEIN 6.2 g/dL (6.4-8.2)
[2021-06-23] MEDS: ASCORBIC ACID 500 MG TABLET PO SCH (07:52)
[2021-06-23] MEDS: POTASSIUM CHLORIDE 20 MEQ TABLET.ER. PO SCH (07:52)
[2021-06-23] MEDS: ASPIRIN CHEWABLE 81 MG TABLET. PO SCH (07:52)
[2021-06-23] MEDS: SENNOSIDES 8.6 MG TABLET PO SCH (07:53)
[2021-06-23] MEDS: CARBIDOPA/LEVODOPA 25/100MG TABLET PO SCH ×3 (07:53→20:02)
[2021-06-23] MEDS: DIVALPROEX 125 MG CAP.SPRINK PO SCH ×2 (07:53→15:11)
[2021-06-23] MEDS: CHOLECALCIFEROL (VITAMIN D3) 1,000 UNIT TABLET PO SCH (07:53)
[2021-06-23] MEDS: LACTOBACILLUS RHAMNOSUS GG 1 CAPSULE. PO SCH ×2 (07:53→20:02)
[2021-06-23] MEDS: SERTRALINE 50 MG TABLET. PO SCH (07:53)
--- NOTE | 2021-06-23 07:53 | PDOC ---
Exam Note: Daren Note: This note is a late entry for 06/21/2021 covers elements not covered in my initial note. Subjective: The patient was seen individually on 06/21/2021, discussed and reviewed the chart with Karey MATIAS. The patient slept 6-1/2 hours previous night. Overall the patient has had a good day. He has been up more of the day, calling for help to go back to the bathroom. Review of Systems: Impaired ambulation impaired, in wheelchair. No CV, , pulmonary, eye system symptoms on review. Mental Status Exam: The patient is oriented to himself and situation. Speech has some latency, at times difficult to understand. Abstraction fair. Computation impaired. Language function intact. Mood and affect withdrawn. Laboratory Data: Reviewed. 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 Anxiety disorder unspecified. Impulse control disorder unspecified. Plan: No change from initial note. Assessment: Vital Signs/I&O: Vital Signs Date Time Temp Pulse Resp B/P (MAP) Pulse Ox O2 Delivery O2 Flow Rate FiO2 06/23/21 06:12 97.7 66 16 132/74 (93) 98 06/22/21 06:08 Room Air I & O 06/22/21 06/22/21 06/23/21 15:00 23:00 07:00 Intake Total 600 ml 480 ml Balance 600 ml 480 ml Labs: Laboratory Tests Test 06/23/21 06:10 White Blood Count 4.4 x10^3/uL (4.0-11.0) Red Blood Count 4.16 x10^6/uL (4.30-5.70) L Hemoglobin 13.4 g/dL (13.0-17.5) Hematocrit 39.8 % (39.0-53.0) Mean Corpuscular Volume 96 fL (79-100) Mean Corpuscular Hemoglobin 32 pg (25-35) Mean Corpuscular Hemoglobin Concent 34 g/dL (31-37) Red Cell Distribution Width 14.5 % (11.5-14.5) Platelet Count 122 x10^3/uL (140-400) L Neutrophils (%) (Auto) 69 % (31-73) Lymphocytes (%) (Auto) 21 % (24-48) L Monocytes (%) (Auto) 8 % (0-9) Eosinophils (%) (Auto) 2 % (0-3) Basophils (%) (Auto) 1 % (0-3) Neutrophils # (Auto) 3.1 x10^3uL (1.8-7.7) Lymphocytes # (Auto) 0.9 x10^3/uL (1.0-4.8) L Monocytes # (Auto) 0.4 x10^3/uL (0.0-1.1) Eosinophils # (Auto) 0.1 x10^3/uL (0.0-0.7) Basophils # (Auto) 0.0 x10^3/uL (0.0-0.2) Sodium Level 144 mmol/L (136-145) Potassium Level 4.1 mmol/L (3.5-5.1) Chloride Level 110 mmol/L (98-107) H Carbon Dioxide Level 26 mmol/L (21-32) Anion Gap 8 (6-14) Blood Urea Nitrogen 21 mg/dL (8-26) Creatinine 0.7 mg/dL (0.7-1.3) Estimated GFR (Cockcroft-Gault) 110.5 BUN/Creatinine Ratio 30 (6-20) H Glucose Level 85 mg/dL (70-99) Calcium Level 8.3 mg/dL (8.5-10.1) L Total Bilirubin 0.4 mg/dL (0.2-1.0) Aspartate Amino Transferase (AST) 14 U/L (15-37) L Alanine Aminotransferase (ALT) 8 U/L (16-63) L Alkaline Phosphatase 81 U/L (46-116) Total Protein 6.2 g/dL (6.4-8.2) L Albumin 3.4 g/dL (3.4-5.0) Albumin/Globulin Ratio 1.2 (1.0-1.7) Current Medications: I have reviewed the current psychotropics carefully including drug interactions. Risk benefit ratio favors no change other than as noted in my dictated progress note. Diagnosis: Problems: (1) Impulse control disorder, unspecified (2) Anxiety disorder, unspecified (3) Dementia, vascular, with depression (4) Dementia, vascular, with delusions (5) Dementia in Alzheimer's disease with depression (6) Dementia in Alzheimer's disease with delusions (7) Dementia of the Alzheimer's type with early onset with behavioral disturbance (8) Major neurocognitive disorder (9) Major depressive disorder, recurrent episode (10) Mild cognitive impairment MICHAEL MCKEON MD Jun 23, 2021 07:53
[2021-06-23] MEDS: POLYETHYLENE GLYCOL 3350 17 GM PACKET. PO SCH (07:54)
[2021-06-23] MEDS: NICOTINE 7MG PATCH. TD SCH (07:54)
[2021-06-23] MEDS: QUEtiapine 25 MG TABLET. PO SCH ×4 (07:54→17:13)
[2021-06-23] MEDS: IPRATROPIUM BROMIDE 0.06% NASAL SPRAY 15ML BOTTLE NS SCH ×2 (07:54→20:02)
--- NOTE | 2021-06-23 08:37 | PDOC ---
Exam Note: Daren Note: This note is a late entry for 06/22/2021 covers elements not covered in my initial note. Subjective: The patient was reviewed at treatment team meeting individually in the morning on 06/22/2021 on telehealth rounds with Amanda Mobley (director of social services), Clara, activity therapy, and Karey MATIAS, discussed and reviewed the chart. The patient slept 7 hours previous night. Appetite is 100%. Double portions, follows directions. He is more awake and alert, frequently looking out of the window, cooperative and pleasant. He denied suicidal attempt prior to admission. Review of Systems: Ambulation impaired, in wheelchair. No CV, , pulmonary, eye system symptoms on review. Mental Status Exam: The patient is oriented to himself and situation. Speech has some latency, at times difficult to understand. Abstraction fair. Computation impaired. Language function intact. Mood and affect withdrawn. Laboratory Data: Reviewed. 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 Anxiety disorder unspecified. Impulse control disorder unspecified. Plan: No change from initial note. Assessment: Vital Signs/I&O: Vital Signs Date Time Temp Pulse Resp B/P (MAP) Pulse Ox O2 Delivery O2 Flow Rate FiO2 06/23/21 06:12 97.7 66 16 132/74 (93) 98 06/22/21 06:08 Room Air I & O 06/22/21 06/22/21 06/23/21 15:00 23:00 07:00 Intake Total 600 ml 480 ml Balance 600 ml 480 ml Labs: Laboratory Tests Test 06/23/21 06:10 White Blood Count 4.4 x10^3/uL (4.0-11.0) Red Blood Count 4.16 x10^6/uL (4.30-5.70) L Hemoglobin 13.4 g/dL (13.0-17.5) Hematocrit 39.8 % (39.0-53.0) Mean Corpuscular Volume 96 fL (79-100) Mean Corpuscular Hemoglobin 32 pg (25-35) Mean Corpuscular Hemoglobin Concent 34 g/dL (31-37) Red Cell Distribution Width 14.5 % (11.5-14.5) Platelet Count 122 x10^3/uL (140-400) L Neutrophils (%) (Auto) 69 % (31-73) Lymphocytes (%) (Auto) 21 % (24-48) L Monocytes (%) (Auto) 8 % (0-9) Eosinophils (%) (Auto) 2 % (0-3) Basophils (%) (Auto) 1 % (0-3) Neutrophils # (Auto) 3.1 x10^3uL (1.8-7.7) Lymphocytes # (Auto) 0.9 x10^3/uL (1.0-4.8) L Monocytes # (Auto) 0.4 x10^3/uL (0.0-1.1) Eosinophils # (Auto) 0.1 x10^3/uL (0.0-0.7) Basophils # (Auto) 0.0 x10^3/uL (0.0-0.2) Sodium Level 144 mmol/L (136-145) Potassium Level 4.1 mmol/L (3.5-5.1) Chloride Level 110 mmol/L (98-107) H Carbon Dioxide Level 26 mmol/L (21-32) Anion Gap 8 (6-14) Blood Urea Nitrogen 21 mg/dL (8-26) Creatinine 0.7 mg/dL (0.7-1.3) Estimated GFR (Cockcroft-Gault) 110.5 BUN/Creatinine Ratio 30 (6-20) H Glucose Level 85 mg/dL (70-99) Calcium Level 8.3 mg/dL (8.5-10.1) L Total Bilirubin 0.4 mg/dL (0.2-1.0) Aspartate Amino Transferase (AST) 14 U/L (15-37) L Alanine Aminotransferase (ALT) 8 U/L (16-63) L Alkaline Phosphatase 81 U/L (46-116) Total Protein 6.2 g/dL (6.4-8.2) L Albumin 3.4 g/dL (3.4-5.0) Albumin/Globulin Ratio 1.2 (1.0-1.7) Current Medications: I have reviewed the current psychotropics carefully including drug interactions. Risk benefit ratio favors no change other than as noted in my dictated progress note. Diagnosis: Problems: (1) Impulse control disorder, unspecified (2) Major depressive disorder, severe (3) Anxiety disorder, unspecified (4) Dementia, vascular, with depression (5) Dementia, vascular, with delusions (6) Dementia in Alzheimer's disease with depression (7) Dementia in Alzheimer's disease with delusions (8) Dementia of the Alzheimer's type with early onset with behavioral disturbance (9) Major neurocognitive disorder (10) Mild cognitive impairment MICHAEL MCKEON MD Jun 23, 2021 08:37
[2021-06-23 15:59] VITALS: BP 147/78
[2021-06-23] MEDS: ATORVASTATIN CALCIUM 10 MG TABLET. PO SCH (20:02)
--- NOTE | 2021-06-23 21:18 | PDOC ---
Exam Note: Daren Note: Please also refer to the separate dictated note~for this date of service dictated separately.~Patient seen individually. Discussed the patient with Nursing staff reviewed the chart.~Reviewed interim history and current functioning. Reviewed vital signs,~Labs/ Radiology~and current medications noted below. Continue current treatment with the changes noted in the dictated addendum note Assessment: Vital Signs/I&O: Vital Signs Date Time Temp Pulse Resp B/P (MAP) Pulse Ox O2 Delivery O2 Flow Rate FiO2 06/23/21 15:59 98.9 90 20 147/78 (101) 97 Room Air I & O 06/22/21 06/22/21 06/23/21 15:00 23:00 07:00 Intake Total 600 ml 480 ml Balance 600 ml 480 ml Labs: Laboratory Tests Test 06/23/21 06:10 White Blood Count 4.4 x10^3/uL (4.0-11.0) Red Blood Count 4.16 x10^6/uL (4.30-5.70) L Hemoglobin 13.4 g/dL (13.0-17.5) Hematocrit 39.8 % (39.0-53.0) Mean Corpuscular Volume 96 fL (79-100) Mean Corpuscular Hemoglobin 32 pg (25-35) Mean Corpuscular Hemoglobin Concent 34 g/dL (31-37) Red Cell Distribution Width 14.5 % (11.5-14.5) Platelet Count 122 x10^3/uL (140-400) L Neutrophils (%) (Auto) 69 % (31-73) Lymphocytes (%) (Auto) 21 % (24-48) L Monocytes (%) (Auto) 8 % (0-9) Eosinophils (%) (Auto) 2 % (0-3) Basophils (%) (Auto) 1 % (0-3) Neutrophils # (Auto) 3.1 x10^3uL (1.8-7.7) Lymphocytes # (Auto) 0.9 x10^3/uL (1.0-4.8) L Monocytes # (Auto) 0.4 x10^3/uL (0.0-1.1) Eosinophils # (Auto) 0.1 x10^3/uL (0.0-0.7) Basophils # (Auto) 0.0 x10^3/uL (0.0-0.2) Sodium Level 144 mmol/L (136-145) Potassium Level 4.1 mmol/L (3.5-5.1) Chloride Level 110 mmol/L (98-107) H Carbon Dioxide Level 26 mmol/L (21-32) Anion Gap 8 (6-14) Blood Urea Nitrogen 21 mg/dL (8-26) Creatinine 0.7 mg/dL (0.7-1.3) Estimated GFR (Cockcroft-Gault) 110.5 BUN/Creatinine Ratio 30 (6-20) H Glucose Level 85 mg/dL (70-99) Calcium Level 8.3 mg/dL (8.5-10.1) L Total Bilirubin 0.4 mg/dL (0.2-1.0) Aspartate Amino Transferase (AST) 14 U/L (15-37) L Alanine Aminotransferase (ALT) 8 U/L (16-63) L Alkaline Phosphatase 81 U/L (46-116) Total Protein 6.2 g/dL (6.4-8.2) L Albumin 3.4 g/dL (3.4-5.0) Albumin/Globulin Ratio 1.2 (1.0-1.7) Current Medications: Meds: Laboratory Tests Test 06/23/21 06:10 White Blood Count 4.4 x10^3/uL Red Blood Count 4.16 x10^6/uL Hemoglobin 13.4 g/dL Hematocrit 39.8 % Mean Corpuscular Volume 96 fL Mean Corpuscular Hemoglobin 32 pg Mean Corpuscular Hemoglobin Concent 34 g/dL Red Cell Distribution Width 14.5 % Platelet Count 122 x10^3/uL Neutrophils (%) (Auto) 69 % Lymphocytes (%) (Auto) 21 % Monocytes (%) (Auto) 8 % Eosinophils (%) (Auto) 2 % Basophils (%) (Auto) 1 % Neutrophils # (Auto) 3.1 x10^3uL Lymphocytes # (Auto) 0.9 x10^3/uL Monocytes # (Auto) 0.4 x10^3/uL Eosinophils # (Auto) 0.1 x10^3/uL Basophils # (Auto) 0.0 x10^3/uL Sodium Level 144 mmol/L Potassium Level 4.1 mmol/L Chloride Level 110 mmol/L Carbon Dioxide Level 26 mmol/L Anion Gap 8 Blood Urea Nitrogen 21 mg/dL Creatinine 0.7 mg/dL Estimated GFR (Cockcroft-Gault) 110.5 BUN/Creatinine Ratio 30 Glucose Level 85 mg/dL Calcium Level 8.3 mg/dL Total Bilirubin 0.4 mg/dL Aspartate Amino Transf (AST/SGOT) 14 U/L Alanine Aminotransferase (ALT/SGPT) 8 U/L Alkaline Phosphatase 81 U/L Total Protein 6.2 g/dL Albumin 3.4 g/dL Albumin/Globulin Ratio 1.2 Current Medications Medications (Trade) Dose Ordered Sig/Daisy Route PRN Reason Start Time Stop Time Status Last Admin Dose Admin Acetaminophen (Tylenol) 650 mg PRN Q6HRS PRN PO MILD PAIN / TEMP > 100.3'F 05/11/21 16:15 Multi-Ingredient Ointment (Analgesic [place]) 1 eva PRN QID PRN TP MUSCLE PAIN 05/11/21 16:15 Al Hydroxide/Mg Hydroxide (Mylanta Plus Xs) 15 ml PRN AFTMEALHC PRN PO DYSPEPSIA 05/11/21 16:15 Magnesium Hydroxide (Milk Of Magnesia) 2,400 mg PRN QHS PRN PO CONSTIPATION 05/11/21 16:15 Nicotine (Nicoderm Cq 14mg Patch) 1 patch DAILY TD 05/12/21 09:00 05/30/21 17:27 DC 05/29/21 08:46 Ascorbic Acid (Vitamin C) 500 mg DAILY PO 05/12/21 09:00 06/23/21 07:52 Aspirin (Aspirin Chewable) 81 mg DAILY PO 05/12/21 09:00 06/23/21 07:52 Nicotine (Nicoderm Cq 14mg Patch) 1 patch DAILY TD 05/12/21 09:00 UNV Potassium Chloride (Klor-Con) 40 meq DAILY PO 05/12/21 09:00 06/23/21 07:52 Sennosides (Senna) 8.6 mg DAILY PO 05/12/21 09:00 06/23/21 07:53 Sertraline HCl (Zoloft) 125 mg DAILY PO 05/12/21 09:00 05/18/21 18:20 DC 05/18/21 08:59 Vitamin D (Vitamin D3) 1,000 unit DAILY PO 05/12/21 09:00 06/23/21 07:53 Cyanocobalamin (Vitamin B-12) 1,000 mcg [id number] PO 05/12/21 09:00 06/09/21 08:29 Polyethylene Glycol (miraLAX) 17 gm DAILY PO 05/12/21 09:00 06/23/21 07:54 Atorvastatin Calcium (Lipitor) 10 mg QHS PO 05/12/21 21:00 06/23/21 20:02 Quetiapine Fumarate (SEROquel) 25 mg PRN BID PRN PO AGITATION 05/12/21 07:15 05/19/21 19:14 DC 05/19/21 09:35 Divalproex Sodium (Depakote Sprinkles) 125 mg [id number] PO 05/12/21 09:00 05/12/21 16:01 DC 05/12/21 08:19 Ipratropium [place] (Atrovent Nasal) 1 spray BID NS 05/12/21 09:00 06/23/21 20:02 Divalproex Sodium (Depakote Sprinkles) 250 mg [id number] PO 05/12/21 16:00 05/16/21 18:09 DC 05/16/21 15:00 Cefdinir (Omnicef) 300 mg BID PO 05/14/21 21:00 05/20/21 22:00 DC 05/20/21 21:00 Lactobacillus Rhamnosus (Culturelle) 1 cap BID PO 05/14/21 21:00 06/23/21 20:02 Carbidopa/Levodopa (Sinemet 25/100) 1 tab TID PO 05/15/21 21:00 06/23/21 20:02 Divalproex Sodium (Depakote Sprinkles) 375 mg [id number] PO 05/17/21 09:00 05/27/21 19:14 DC 05/27/21 14:52 Sertraline HCl (Zoloft) 150 mg DAILY PO 05/19/21 09:00 06/01/21 11:53 DC 06/01/21 09:01 Quetiapine Fumarate (SEROquel) 25 mg 0900,1700 PO 05/20/21 09:00 05/23/21 18:17 DC 05/23/21 17:00 Olanzapine (ZyPREXA ZYDIS) 2.5 mg PRN Q2HR PRN PO PSYCHOSIS 05/20/21 10:00 06/15/21 08:58 Quetiapine Fumarate (SEROquel) 25 mg 0900,1300,1700 PO 05/24/21 09:00 05/25/21 11:57 DC 05/25/21 09:00 Quetiapine Fumarate (SEROquel) 25 mg 0900,1200,1500,1800 PO 05/25/21 12:00 06/23/21 17:13 Divalproex Sodium (Depakote Sprinkles) 500 mg [id number] PO 05/28/21 09:00 06/07/21 17:03 DC 06/07/21 08:54 Nicotine (Nicoderm Cq 7mg Patch) 1 patch DAILY TD 05/31/21 09:00 06/23/21 07:54 Sertraline HCl (Zoloft) 175 mg DAILY PO 06/02/21 09:00 06/23/21 07:53 Divalproex Sodium (Depakote Sprinkles) 250 mg [id number] PO 06/08/21 09:00 06/07/21 17:07 DC Divalproex Sodium (Depakote Sprinkles) 250 mg [id number] PO 06/07/21 17:15 06/23/21 15:11 Artificial Tears (Artificial Tears) 1 drop PRN Q4HRS PRN OS DRY EYE 06/11/21 16:00 06/11/21 18:00 I have reviewed the current psychotropics carefully including drug interactions. Risk benefit ratio favors no change other than as noted in my dictated progress note. Diagnosis: Problems: (1) Impulse control disorder, unspecified (2) Anxiety disorder, unspecified (3) Dementia, vascular, with depression (4) Dementia, vascular, with delusions (5) Dementia in Alzheimer's disease with depression (6) Dementia in Alzheimer's disease with delusions (7) Dementia of the Alzheimer's type with early onset with behavioral disturbance (8) Major neurocognitive disorder (9) Major depressive disorder, recurrent episode (10) Mild cognitive impairment MICHAEL MCKEON MD Jun 23, 2021 21:18
[2021-06-24 06:31] VITALS: BP 120/68
[2021-06-24] MEDS: POLYETHYLENE GLYCOL 3350 17 GM PACKET. PO SCH (08:09)
[2021-06-24] MEDS: IPRATROPIUM BROMIDE 0.06% NASAL SPRAY 15ML BOTTLE NS SCH ×2 (08:09→20:48)
[2021-06-24] MEDS: NICOTINE 7MG PATCH. TD SCH (08:09)
[2021-06-24] MEDS: CHOLECALCIFEROL (VITAMIN D3) 1,000 UNIT TABLET PO SCH (08:09)
[2021-06-24] MEDS: QUEtiapine 25 MG TABLET. PO SCH ×4 (08:10→17:24)
[2021-06-24] MEDS: DIVALPROEX 125 MG CAP.SPRINK PO SCH ×2 (08:10→16:00)
[2021-06-24] MEDS: SENNOSIDES 8.6 MG TABLET PO SCH (08:10)
[2021-06-24] MEDS: ASPIRIN CHEWABLE 81 MG TABLET. PO SCH (08:11)
[2021-06-24] MEDS: SERTRALINE 50 MG TABLET. PO SCH (08:11)
[2021-06-24] MEDS: CARBIDOPA/LEVODOPA 25/100MG TABLET PO SCH ×3 (08:11→20:49)
[2021-06-24] MEDS: LACTOBACILLUS RHAMNOSUS GG 1 CAPSULE. PO SCH ×2 (08:11→20:49)
[2021-06-24] MEDS: ASCORBIC ACID 500 MG TABLET PO SCH (08:11)
[2021-06-24] MEDS: POTASSIUM CHLORIDE 20 MEQ TABLET.ER. PO SCH (08:11)
[2021-06-24 15:52] VITALS: BP 103/60
[2021-06-24] MEDS: ATORVASTATIN CALCIUM 10 MG TABLET. PO SCH (20:49)
--- NOTE | 2021-06-24 21:19 | PDOC ---
Exam Note: Daren Note: Please also refer to the separate dictated note~for this date of service dictated separately.~Patient seen individually. Discussed the patient with Nursing staff reviewed the chart.~Reviewed interim history and current functioning. Reviewed vital signs,~Labs/ Radiology~and current medications noted below. Continue current treatment with the changes noted in the dictated addendum note Assessment: Vital Signs/I&O: Vital Signs Date Time Temp Pulse Resp B/P (MAP) Pulse Ox O2 Delivery O2 Flow Rate FiO2 06/24/21 15:52 97.2 66 18 103/60 (74) 97 06/23/21 15:59 Room Air I & O 06/23/21 06/23/21 06/24/21 15:00 23:00 07:00 Intake Total 360 ml 360 ml Balance 360 ml 360 ml Current Medications: Meds: Current Medications Medications (Trade) Dose Ordered Sig/Daisy Route PRN Reason Start Time Stop Time Status Last Admin Dose Admin Acetaminophen (Tylenol) 650 mg PRN Q6HRS PRN PO MILD PAIN / TEMP > 100.3'F 05/11/21 16:15 Multi-Ingredient Ointment (Analgesic [place]) 1 eva PRN QID PRN TP MUSCLE PAIN 05/11/21 16:15 Al Hydroxide/Mg Hydroxide (Mylanta Plus Xs) 15 ml PRN AFTMEALHC PRN PO DYSPEPSIA 05/11/21 16:15 Magnesium Hydroxide (Milk Of Magnesia) 2,400 mg PRN QHS PRN PO CONSTIPATION 05/11/21 16:15 Nicotine (Nicoderm Cq 14mg Patch) 1 patch DAILY TD 05/12/21 09:00 05/30/21 17:27 DC 05/29/21 08:46 Ascorbic Acid (Vitamin C) 500 mg DAILY PO 05/12/21 09:00 06/24/21 08:11 Aspirin (Aspirin Chewable) 81 mg DAILY PO 05/12/21 09:00 06/24/21 08:11 Nicotine (Nicoderm Cq 14mg Patch) 1 patch DAILY TD 05/12/21 09:00 UNV Potassium Chloride (Klor-Con) 40 meq DAILY PO 05/12/21 09:00 06/24/21 08:11 Sennosides (Senna) 8.6 mg DAILY PO 05/12/21 09:00 06/24/21 08:10 Sertraline HCl (Zoloft) 125 mg DAILY PO 05/12/21 09:00 05/18/21 18:20 DC 05/18/21 08:59 Vitamin D (Vitamin D3) 1,000 unit DAILY PO 05/12/21 09:00 06/24/21 08:09 Cyanocobalamin (Vitamin B-12) 1,000 mcg [id number] PO 05/12/21 09:00 06/09/21 08:29 Polyethylene Glycol (miraLAX) 17 gm DAILY PO 05/12/21 09:00 06/24/21 08:09 Atorvastatin Calcium (Lipitor) 10 mg QHS PO 05/12/21 21:00 06/24/21 20:49 Quetiapine Fumarate (SEROquel) 25 mg PRN BID PRN PO AGITATION 05/12/21 07:15 05/19/21 19:14 DC 05/19/21 09:35 Divalproex Sodium (Depakote Sprinkles) 125 mg [id number] PO 05/12/21 09:00 05/12/21 16:01 DC 05/12/21 08:19 Ipratropium [place] (Atrovent Nasal) 1 spray BID NS 05/12/21 09:00 06/24/21 20:48 Divalproex Sodium (Depakote Sprinkles) 250 mg [id number] PO 05/12/21 16:00 05/16/21 18:09 DC 05/16/21 15:00 Cefdinir (Omnicef) 300 mg BID PO 05/14/21 21:00 05/20/21 22:00 DC 05/20/21 21:00 Lactobacillus Rhamnosus (Culturelle) 1 cap BID PO 05/14/21 21:00 06/24/21 20:49 Carbidopa/Levodopa (Sinemet 25/100) 1 tab TID PO 05/15/21 21:00 06/24/21 20:49 Divalproex Sodium (Depakote Sprinkles) 375 mg [id number] PO 05/17/21 09:00 05/27/21 19:14 DC 05/27/21 14:52 Sertraline HCl (Zoloft) 150 mg DAILY PO 05/19/21 09:00 06/01/21 11:53 DC 06/01/21 09:01 Quetiapine Fumarate (SEROquel) 25 mg 0900,1700 PO 05/20/21 09:00 05/23/21 18:17 DC 05/23/21 17:00 Olanzapine (ZyPREXA ZYDIS) 2.5 mg PRN Q2HR PRN PO PSYCHOSIS 05/20/21 10:00 06/15/21 08:58 Quetiapine Fumarate (SEROquel) 25 mg 0900,1300,1700 PO 05/24/21 09:00 05/25/21 11:57 DC 05/25/21 09:00 Quetiapine Fumarate (SEROquel) 25 mg 0900,1200,1500,1800 PO 05/25/21 12:00 06/24/21 17:24 Divalproex Sodium (Depakote Sprinkles) 500 mg [id number] PO 05/28/21 09:00 06/07/21 17:03 DC 06/07/21 08:54 Nicotine (Nicoderm Cq 7mg Patch) 1 patch DAILY TD 05/31/21 09:00 06/24/21 08:09 Sertraline HCl (Zoloft) 175 mg DAILY PO 06/02/21 09:00 06/24/21 08:11 Divalproex Sodium (Depakote Sprinkles) 250 mg [id number] PO 06/08/21 09:00 06/07/21 17:07 DC Divalproex Sodium (Depakote Sprinkles) 250 mg [id number] PO 06/07/21 17:15 06/24/21 16:00 Artificial Tears (Artificial Tears) 1 drop PRN Q4HRS PRN OS DRY EYE 06/11/21 16:00 06/11/21 18:00 I have reviewed the current psychotropics carefully including drug interactions. Risk benefit ratio favors no change other than as noted in my dictated progress note. Diagnosis: Problems: (1) Impulse control disorder, unspecified (2) Anxiety disorder, unspecified (3) Dementia, vascular, with depression (4) Dementia, vascular, with delusions (5) Dementia in Alzheimer's disease with depression (6) Dementia in Alzheimer's disease with delusions (7) Dementia of the Alzheimer's type with early onset with behavioral disturbance (8) Major neurocognitive disorder (9) Major depressive disorder, recurrent episode (10) Mild cognitive impairment MICHAEL MCKEON MD Jun 24, 2021 21:19
[2021-06-25 06:19] VITALS: BP 117/70
[2021-06-25] MEDS: IPRATROPIUM BROMIDE 0.06% NASAL SPRAY 15ML BOTTLE NS SCH ×2 (08:18→20:29)
[2021-06-25] MEDS: POTASSIUM CHLORIDE 20 MEQ TABLET.ER. PO SCH (08:18)
[2021-06-25] MEDS: DIVALPROEX 125 MG CAP.SPRINK PO SCH ×2 (08:18→16:49)
[2021-06-25] MEDS: SERTRALINE 50 MG TABLET. PO SCH (08:18)
[2021-06-25] MEDS: SENNOSIDES 8.6 MG TABLET PO SCH (08:19)
[2021-06-25] MEDS: QUEtiapine 25 MG TABLET. PO SCH ×4 (08:19→16:49)
[2021-06-25] MEDS: CHOLECALCIFEROL (VITAMIN D3) 1,000 UNIT TABLET PO SCH (08:19)
[2021-06-25] MEDS: CARBIDOPA/LEVODOPA 25/100MG TABLET PO SCH ×3 (08:19→20:29)
[2021-06-25] MEDS: ASPIRIN CHEWABLE 81 MG TABLET. PO SCH (08:19)
[2021-06-25] MEDS: ASCORBIC ACID 500 MG TABLET PO SCH (08:19)
[2021-06-25] MEDS: NICOTINE 7MG PATCH. TD SCH (08:19)
[2021-06-25] MEDS: POLYETHYLENE GLYCOL 3350 17 GM PACKET. PO SCH (08:20)
[2021-06-25] MEDS: LACTOBACILLUS RHAMNOSUS GG 1 CAPSULE. PO SCH ×2 (08:24→20:29)
--- NOTE | 2021-06-25 08:37 | PDOC ---
Exam Note: Daren Note: This note is a late entry for 06/23/2021 covers elements not covered in my initial note. Subjective: The patient was seen individually on 06/23/2021, discussed and reviewed the chart with Karey MATIAS. The patient slept 8 hours previous night. I met with him in his room. He has been fairly cooperative, somewhat anxious, calls out frequently when he is in the toilet and needs assistance. I met with him in his room. Review of Systems: Ambulation impaired, in wheelchair. No CV, , pulmonary, eye system symptoms on review. Mental Status Exam: The patient is oriented to himself and situation. He was trying to shift himself from the wheelchair to the bed and was calling out to the nursing staff to assist him. Speech has some latency. Abstraction fair. Computation impaired. Language function intact. Mood and affect anxious. Laboratory Data: Reviewed. 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 Anxiety disorder unspecified. Impulse control disorder unspecified. Plan: No change from initial note. Assessment: Vital Signs/I&O: Vital Signs Date Time Temp Pulse Resp B/P (MAP) Pulse Ox O2 Delivery O2 Flow Rate FiO2 06/25/21 06:19 97.5 62 16 117/70 (86) 98 Room Air I & O 06/24/21 06/24/21 06/25/21 15:00 23:00 07:00 Intake Total 480 ml 600 ml Balance 480 ml 600 ml Current Medications: I have reviewed the current psychotropics carefully including drug interactions. Risk benefit ratio favors no change other than as noted in my dictated progress note. Diagnosis: Problems: (1) Impulse control disorder, unspecified (2) Anxiety disorder, unspecified (3) Dementia, vascular, with depression (4) Dementia, vascular, with delusions (5) Dementia in Alzheimer's disease with depression (6) Dementia in Alzheimer's disease with delusions (7) Dementia of the Alzheimer's type with early onset with behavioral disturbance (8) Major neurocognitive disorder (9) Major depressive disorder, recurrent episode (10) Mild cognitive impairment MICHAEL MCKEON MD Jun 25, 2021 08:37
--- NOTE | 2021-06-25 09:15 | PDOC ---
Exam Note: Daren Note: This note is a late entry for 06/24/2021 covers elements not covered in my initial note. Subjective: The patient was seen individually on 06/24/2021, discussed and reviewed the chart with Barbra MATIAS. The patient slept 9-1/4 hours previous night. I met with him in his room. He has had some tremors in his right hand. We will defer to Dr. Kessler given his history of Parkinsons. Review of Systems: Ambulation impaired, in wheelchair. No CV, , pulmonary, eye system symptoms on review. Mental Status Exam: The patient is oriented to himself and situation. Speech has some latency. Abstraction fair. Computation impaired. Language function intact. Mood and affect anxious. Laboratory Data: Reviewed. 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 Anxiety disorder unspecified. Impulse control disorder unspecified. Plan: No change from initial note. Assessment: Vital Signs/I&O: Vital Signs Date Time Temp Pulse Resp B/P (MAP) Pulse Ox O2 Delivery O2 Flow Rate FiO2 06/25/21 06:19 97.5 62 16 117/70 (86) 98 Room Air I & O 06/24/21 06/24/21 06/25/21 15:00 23:00 07:00 Intake Total 480 ml 600 ml Balance 480 ml 600 ml Current Medications: I have reviewed the current psychotropics carefully including drug interactions. Risk benefit ratio favors no change other than as noted in my dictated progress note. Diagnosis: Problems: (1) Impulse control disorder, unspecified (2) Anxiety disorder, unspecified (3) Dementia, vascular, with depression (4) Dementia, vascular, with delusions (5) Dementia in Alzheimer's disease with depression (6) Dementia in Alzheimer's disease with delusions (7) Dementia of the Alzheimer's type with early onset with behavioral distu rbance (8) Major neurocognitive disorder (9) Major depressive disorder, recurrent episode (10) Mild cognitive impairment MICHAEL MCKENO MD Jun 25, 2021 09:15
[2021-06-25 15:24] VITALS: BP 163/84
[2021-06-25 15:39] VITALS: BP 130/77
[2021-06-25] MEDS: ACETAMINOPHEN 325 MG TABLET PO PRN (17:44)
[2021-06-25] MEDS: ATORVASTATIN CALCIUM 10 MG TABLET. PO SCH (20:29)
--- NOTE | 2021-06-25 21:28 | PDOC ---
Exam Note: Daren Note: Please also refer to the separate dictated note~for this date of service dictated separately.~Patient seen individually. Discussed the patient with Nursing staff reviewed the chart.~Reviewed interim history and current functioning. Reviewed vital signs,~Labs/ Radiology~and current medications noted below. Continue current treatment with the changes noted in the dictated addendum note Assessment: Vital Signs/I&O: Vital Signs Date Time Temp Pulse Resp B/P (MAP) Pulse Ox O2 Delivery O2 Flow Rate FiO2 06/25/21 15:39 98.0 92 18 130/77 (94) 97 06/25/21 15:24 Room Air I & O 06/24/21 06/24/21 06/25/21 15:00 23:00 07:00 Intake Total 480 ml 600 ml Balance 480 ml 600 ml Current Medications: Meds: Current Medications Medications (Trade) Dose Ordered Sig/Daisy Route PRN Reason Start Time Stop Time Status Last Admin Dose Admin Acetaminophen (Tylenol) 650 mg PRN Q6HRS PRN PO MILD PAIN / TEMP > 100.3'F 05/11/21 16:15 06/25/21 17:44 Multi-Ingredient Ointment (Analgesic [place]) 1 eva PRN QID PRN TP MUSCLE PAIN 05/11/21 16:15 Al Hydroxide/Mg Hydroxide (Mylanta Plus Xs) 15 ml PRN AFTMEALHC PRN PO DYSPEPSIA 05/11/21 16:15 Magnesium Hydroxide (Milk Of Magnesia) 2,400 mg PRN QHS PRN PO CONSTIPATION 05/11/21 16:15 Nicotine (Nicoderm Cq 14mg Patch) 1 patch DAILY TD 05/12/21 09:00 05/30/21 17:27 DC 05/29/21 08:46 Ascorbic Acid (Vitamin C) 500 mg DAILY PO 05/12/21 09:00 06/25/21 08:19 Aspirin (Aspirin Chewable) 81 mg DAILY PO 05/12/21 09:00 06/25/21 08:19 Nicotine (Nicoderm Cq 14mg Patch) 1 patch DAILY TD 05/12/21 09:00 UNV Potassium Chloride (Klor-Con) 40 meq DAILY PO 05/12/21 09:00 06/25/21 08:18 Sennosides (Senna) 8.6 mg DAILY PO 05/12/21 09:00 06/25/21 08:19 Sertraline HCl (Zoloft) 125 mg DAILY PO 05/12/21 09:00 05/18/21 18:20 DC 05/18/21 08:59 Vitamin D (Vitamin D3) 1,000 unit DAILY PO 05/12/21 09:00 06/25/21 08:19 Cyanocobalamin (Vitamin B-12) 1,000 mcg [id number] PO 05/12/21 09:00 06/09/21 08:29 Polyethylene Glycol (miraLAX) 17 gm DAILY PO 05/12/21 09:00 06/25/21 08:20 Atorvastatin Calcium (Lipitor) 10 mg QHS PO 05/12/21 21:00 06/25/21 20:29 Quetiapine Fumarate (SEROquel) 25 mg PRN BID PRN PO AGITATION 05/12/21 07:15 05/19/21 19:14 DC 05/19/21 09:35 Divalproex Sodium (Depakote Sprinkles) 125 mg [id number] PO 05/12/21 09:00 05/12/21 16:01 DC 05/12/21 08:19 Ipratropium [place] (Atrovent Nasal) 1 spray BID NS 05/12/21 09:00 06/25/21 20:29 Divalproex Sodium (Depakote Sprinkles) 250 mg [id number] PO 05/12/21 16:00 05/16/21 18:09 DC 05/16/21 15:00 Cefdinir (Omnicef) 300 mg BID PO 05/14/21 21:00 05/20/21 22:00 DC 05/20/21 21:00 Lactobacillus Rhamnosus (Culturelle) 1 cap BID PO 05/14/21 21:00 06/25/21 20:29 Carbidopa/Levodopa (Sinemet 25/100) 1 tab TID PO 05/15/21 21:00 06/25/21 20:29 Divalproex Sodium (Depakote Sprinkles) 375 mg BID94 PO 05/17/21 09:00 05/27/21 19:14 DC 05/27/21 14:52 Sertraline HCl (Zoloft) 150 mg DAILY PO 05/19/21 09:00 06/01/21 11:53 DC 06/01/21 09:01 Quetiapine Fumarate (SEROquel) 25 mg 0900,1700 PO 05/20/21 09:00 05/23/21 18:17 DC 05/23/21 17:00 Olanzapine (ZyPREXA ZYDIS) 2.5 mg PRN Q2HR PRN PO PSYCHOSIS 05/20/21 10:00 06/15/21 08:58 Quetiapine Fumarate (SEROquel) 25 mg 0900,1300,1700 PO 05/24/21 09:00 05/25/21 11:57 DC 05/25/21 09:00 Quetiapine Fumarate (SEROquel) 25 mg 0900,1200,1500,1800 PO 05/25/21 12:00 06/25/21 16:49 Divalproex Sodium (Depakote Sprinkles) 500 mg BID94 PO 05/28/21 09:00 06/07/21 17:03 DC 06/07/21 08:54 Nicotine (Nicoderm Cq 7mg Patch) 1 patch DAILY TD 05/31/21 09:00 06/25/21 08:19 Sertraline HCl (Zoloft) 175 mg DAILY PO 06/02/21 09:00 06/25/21 08:18 Divalproex Sodium (Depakote Sprinkles) 250 mg [id number] PO 06/08/21 09:00 06/07/21 17:07 DC Divalproex Sodium (Depakote Sprinkles) 250 mg BID94 PO 06/07/21 17:15 06/25/21 16:49 Artificial Tears (Artificial Tears) 1 drop PRN Q4HRS PRN OS DRY EYE 06/11/21 16:00 06/11/21 18:00 I have reviewed the current psychotropics carefully including drug interactions. Risk benefit ratio favors no change other than as noted in my dictated progress note. Diagnosis: Problems: (1) Impulse control disorder, unspecified (2) Major depressive disorder, severe (3) Anxiety disorder, unspecified (4) Dementia, vascular, with depression (5) Dementia, vascular, with delusions (6) Dementia in Alzheimer's disease with depression (7) Dementia in Alzheimer's disease with delusions (8) Dementia of the Alzheimer's type with early onset with behavioral disturbance (9) Major neurocognitive disorder (10) Mild cognitive impairment MICHAEL MCKEON MD 13, 2022 21:28
--- NOTE | 2021-06-26 00:03 | RAD ---
Right rib x-rays 3 views HISTORY: Fall with right rib pain FINDINGS: Soft tissue emphysema of the right neck and right lateral chest wall. There are acute traum atic right lateral eighth and ninth rib comminuted fractures with slight buckling, additional rib fra ctures cannot be excluded as all 3 images have significant overlapping of the lower lateral ribs. The re is a probable risk for a pneumothorax although no visible pleural lucency or visceral pleural line can be identified to confirm a pneumothorax. Mild heterogeneous densities right lung base likely ate lectasis adjacent to the rib fractures. IMPRESSION: Acute traumatic fractures of the right lateral eighth and ninth ribs with overlying chest and lower neck soft tissue emphysema. See above. Electronically signed by: Ricci Barker MD (06/26/2021 12:00 AM) [facility]
[2021-06-26] MEDS: ACETAMINOPHEN 325 MG TABLET PO PRN (04:07)
[2021-06-26] MEDS: HYDROcodone/APAP 5/325MG 1 TAB TABLET PO PRN ×4 (05:59→20:30)
[2021-06-26 06:00] VITALS: BP 172/91
[2021-06-26] MEDS: NICOTINE 7MG PATCH. TD SCH (08:26)
[2021-06-26] MEDS: CHOLECALCIFEROL (VITAMIN D3) 1,000 UNIT TABLET PO SCH (08:27)
[2021-06-26] MEDS: ASPIRIN CHEWABLE 81 MG TABLET. PO SCH (08:27)
[2021-06-26] MEDS: CARBIDOPA/LEVODOPA 25/100MG TABLET PO SCH ×3 (08:27→20:29)
[2021-06-26] MEDS: SENNOSIDES 8.6 MG TABLET PO SCH (08:27)
[2021-06-26] MEDS: QUEtiapine 25 MG TABLET. PO SCH ×4 (08:27→17:01)
[2021-06-26] MEDS: SERTRALINE 50 MG TABLET. PO SCH (08:27)
[2021-06-26] MEDS: LACTOBACILLUS RHAMNOSUS GG 1 CAPSULE. PO SCH ×2 (08:28→20:29)
[2021-06-26] MEDS: POLYETHYLENE GLYCOL 3350 17 GM PACKET. PO SCH (08:28)
[2021-06-26] MEDS: POTASSIUM CHLORIDE 20 MEQ TABLET.ER. PO SCH (08:28)
[2021-06-26] MEDS: IPRATROPIUM BROMIDE 0.06% NASAL SPRAY 15ML BOTTLE NS SCH ×2 (08:28→20:29)
[2021-06-26] MEDS: DIVALPROEX 125 MG CAP.SPRINK PO SCH ×2 (08:28→17:01)
[2021-06-26] MEDS: ASCORBIC ACID 500 MG TABLET PO SCH (08:31)
[2021-06-26 15:34] VITALS: BP 124/84
[2021-06-26] MEDS: ATORVASTATIN CALCIUM 10 MG TABLET. PO SCH (20:29)
--- NOTE | 2021-06-26 21:48 | PDOC ---
Exam Note: Daren Note: Please also refer to the separate dictated note~for this date of service dictated separately.~Patient seen individually. Discussed the patient with Nursing staff reviewed the chart.~Reviewed interim history and current functioning. Reviewed vital signs,~Labs/ Radiology~and current medications noted below. Continue current treatment with the changes noted in the dictated addendum note Assessment: Vital Signs/I&O: Vital Signs Date Time Temp Pulse Resp B/P (MAP) Pulse Ox O2 Delivery O2 Flow Rate FiO2 06/26/21 21:00 95 06/26/21 15:34 98.3 75 20 124/84 (97) 06/26/21 10:10 Room Air I & O 06/25/21 06/25/21 06/26/21 15:00 23:00 07:00 Intake Total 600 ml 600 ml Balance 600 ml 600 ml Current Medications: Meds: Current Medications Medications (Trade) Dose Ordered Sig/Daisy Route PRN Reason Start Time Stop Time Status Last Admin Dose Admin Acetaminophen (Tylenol) 650 mg PRN Q6HRS PRN PO MILD PAIN / TEMP > 100.3'F 05/11/21 16:15 06/26/21 04:07 Multi-Ingredient Ointment (Analgesic [place]) 1 eva PRN QID PRN TP MUSCLE PAIN 05/11/21 16:15 Al Hydroxide/Mg Hydroxide (Mylanta Plus Xs) 15 ml PRN AFTMEALHC PRN PO DYSPEPSIA 05/11/21 16:15 Magnesium Hydroxide (Milk Of Magnesia) 2,400 mg PRN QHS PRN PO CONSTIPATION 05/11/21 16:15 Nicotine (Nicoderm Cq 14mg Patch) 1 patch DAILY TD 05/12/21 09:00 05/30/21 17:27 DC 05/29/21 08:46 Ascorbic Acid (Vitamin C) 500 mg DAILY PO 05/12/21 09:00 06/26/21 08:31 Aspirin (Aspirin Chewable) 81 mg DAILY PO 05/12/21 09:00 06/26/21 08:27 Nicotine (Nicoderm Cq 14mg Patch) 1 patch DAILY TD 05/12/21 09:00 UNV Potassium Chloride (Klor-Con) 40 meq DAILY PO 05/12/21 09:00 06/26/21 08:28 Sennosides (Senna) 8.6 mg DAILY PO 05/12/21 09:00 06/26/21 08:27 Sertraline HCl (Zoloft) 125 mg DAILY PO 05/12/21 09:00 05/18/21 18:20 DC 05/18/21 08:59 Vitamin D (Vitamin D3) 1,000 unit DAILY PO 05/12/21 09:00 06/26/21 08:27 Cyanocobalamin (Vitamin B-12) 1,000 mcg [id number] PO 05/12/21 09:00 06/09/21 08:29 Polyethylene Glycol (miraLAX) 17 gm DAILY PO 05/12/21 09:00 06/26/21 08:28 Atorvastatin Calcium (Lipitor) 10 mg QHS PO 05/12/21 21:00 06/26/21 20:29 Quetiapine Fumarate (SEROquel) 25 mg PRN BID PRN PO AGITATION 05/12/21 07:15 05/19/21 19:14 DC 05/19/21 09:35 Divalproex Sodium (Depakote Sprinkles) 125 mg [id number] PO 05/12/21 09:00 05/12/21 16:01 DC 05/12/21 08:19 Ipratropium [place] (Atrovent Nasal) 1 spray BID NS 05/12/21 09:00 06/26/21 20:29 Divalproex Sodium (Depakote Sprinkles) 250 mg BID94 PO 05/12/21 16:00 05/16/21 18:09 DC 05/16/21 15:00 Cefdinir (Omnicef) 300 mg BID PO 05/14/21 21:00 05/20/21 22:00 DC 05/20/21 21:00 Lactobacillus Rhamnosus (Culturelle) 1 cap BID PO 05/14/21 21:00 06/26/21 20:29 Carbidopa/Levodopa (Sinemet 25/100) 1 tab TID PO 05/15/21 21:00 06/26/21 20:29 Divalproex Sodium (Depakote Sprinkles) 375 mg BID94 PO 05/17/21 09:00 05/27/21 19:14 DC 05/27/21 14:52 Sertraline HCl (Zoloft) 150 mg DAILY PO 05/19/21 09:00 06/01/21 11:53 DC 06/01/21 09:01 Quetiapine Fumarate (SEROquel) 25 mg 0900,1700 PO 05/20/21 09:00 05/23/21 18:17 DC 05/23/21 17:00 Olanzapine (ZyPREXA ZYDIS) 2.5 mg PRN Q2HR PRN PO PSYCHOSIS 05/20/21 10:00 06/15/21 08:58 Quetiapine Fumarate (SEROquel) 25 mg 0900,1300,1700 PO 05/24/21 09:00 05/25/21 11:57 DC 05/25/21 09:00 Quetiapine Fumarate (SEROquel) 25 mg 0900,1200,1500,1800 PO 05/25/21 12:00 06/26/21 17:01 Divalproex Sodium (Depakote Sprinkles) 500 mg BID94 PO 05/28/21 09:00 06/07/21 17:03 DC 06/07/21 08:54 Nicotine (Nicoderm Cq 7mg Patch) 1 patch DAILY TD 05/31/21 09:00 06/26/21 08:26 Sertraline HCl (Zoloft) 175 mg DAILY PO 06/02/21 09:00 06/26/21 08:27 Divalproex Sodium (Depakote Sprinkles) 250 mg BID94 PO 06/08/21 09:00 06/07/21 17:07 DC Divalproex Sodium (Depakote Sprinkles) 250 mg BID94 PO 06/07/21 17:15 06/26/21 17:01 Artificial Tears (Artificial Tears) 1 drop PRN Q4HRS PRN OS DRY EYE 06/11/21 16:00 06/11/21 18:00 Acetaminophen/ Hydrocodone Bitart (Lortab 5/325) 1 tab PRN Q4HRS PRN PO MODERATE PAIN 4-6 06/26/21 06:00 06/26/21 20:30 Current Medications Medications (Trade) Dose Ordered Sig/Daisy Route PRN Reason Start Time Stop Time Status Last Admin Dose Admin Acetaminophen/ Hydrocodone Bitart (Lortab 5/325) 1 tab PRN Q4HRS PRN PO MODERATE PAIN 4-6 06/26/21 06:00 06/26/21 20:30 I have reviewed the current psychotropics carefully including drug interactions. Risk benefit ratio favors no change other than as noted in my dictated progress note. Diagnosis: Problems: (1) Impulse control disorder, unspecified (2) Anxiety disorder, unspecified (3) Dementia, vascular, with depression (4) Dementia, vascular, with delusions (5) Dementia in Alzheimer's disease with depression (6) Dementia in Alzheimer's disease with delusions (7) Dementia of the Alzheimer's type with early onset with behavioral disturbanc e (8) Major neurocognitive disorder (9) Major depressive disorder, recurrent episode (10) Mild cognitive impairment MICHAEL MCKEON MD Jun 26, 2021 21:48
[2021-06-27] MEDS: HYDROcodone/APAP 5/325MG 1 TAB TABLET PO PRN ×4 (01:26→19:51)
[2021-06-27 06:23] VITALS: BP 138/77
--- NOTE | 2021-06-27 06:40 | PDOC ---
Exam Note: Daren Note: This note is a late entry for 06/25/2021 covers elements not covered in my initial note. Subjective: The patient was seen individually on 06/25/2021, discussed and reviewed the chart with Pollo MATIAS. The patient slept 4-1/4 hours previous night. Overall he has done well during the day but fell later in the day as he was in the toilet, did not pull the alarm. X-ray has been done for possibility of rib fracture. He is isolating to his room at times, but does come out at other times. He seems to get irritable if he is talked down or someone treats him as if he is demented, which he is not other than some mild cognitive impairment. Review of Systems: Ambulation impaired, in wheelchair. He complains of some rib pain. No CV, , pulmonary, eye system symptoms on review. Mental Status Exam: The patient is oriented to himself and situation. Speech has some latency. Abstraction fair. Computation impaired. Language function intact. Mood and affect anxious. Laboratory Data: Reviewed. Impression: Major depressive disorder with psychotic features. Major ne urocognitive disorder, early Alzheimer, vascular with delusion, depression, behavioral disturbance. Anxiety disorder unspecified. Impulse control disorder unspecified. Plan: No change from initial note. Defer further management of rib fracture to Dr. Nuñez. Assessment: Vital Signs/I&O: Vital Signs Date Time Temp Pulse Resp B/P (MAP) Pulse Ox O2 Delivery O2 Flow Rate FiO2 06/27/21 06:35 94 06/27/21 06:23 98.1 78 18 138/77 (97) 06/26/21 10:10 Room Air I & O 06/26/21 06/26/21 06/27/21 15:00 23:00 07:00 Intake Total 360 ml 540 ml Balance 360 ml 540 ml Current Medications: I have reviewed the current psychotropics carefully including drug interactions. Risk benefit ratio favors no change other than as noted in my dictated progress note. Diagnosis: Problems: (1) Impulse control disorder, unspecified (2) Anxiety disorder, unspecified (3) Dementia, vascular, with depression (4) Dementia, vascular, with delusions (5) Dementia in Alzheimer's disease with depression (6) Dementia in Alzheimer's disease with delusions (7) Dementia of the Alzheimer's type with early onset with behavioral disturbance (8) Major neurocognitive disorder (9) Major depressive disorder, recurrent episode (10) Mild cognitive impairment MICHAEL MCKEON MD Jun 27, 2021 06:40
[2021-06-27] MEDS: POLYETHYLENE GLYCOL 3350 17 GM PACKET. PO SCH (08:24)
[2021-06-27] MEDS: CARBIDOPA/LEVODOPA 25/100MG TABLET PO SCH ×3 (08:25→19:51)
[2021-06-27] MEDS: POTASSIUM CHLORIDE 20 MEQ TABLET.ER. PO SCH (08:25)
[2021-06-27] MEDS: ASCORBIC ACID 500 MG TABLET PO SCH (08:25)
[2021-06-27] MEDS: CHOLECALCIFEROL (VITAMIN D3) 1,000 UNIT TABLET PO SCH (08:25)
[2021-06-27] MEDS: DIVALPROEX 125 MG CAP.SPRINK PO SCH ×2 (08:25→14:46)
[2021-06-27] MEDS: SERTRALINE 50 MG TABLET. PO SCH (08:25)
[2021-06-27] MEDS: ASPIRIN CHEWABLE 81 MG TABLET. PO SCH (08:26)
[2021-06-27] MEDS: SENNOSIDES 8.6 MG TABLET PO SCH (08:26)
[2021-06-27] MEDS: QUEtiapine 25 MG TABLET. PO SCH ×4 (08:26→17:05)
[2021-06-27] MEDS: NICOTINE 7MG PATCH. TD SCH (08:26)
[2021-06-27] MEDS: LACTOBACILLUS RHAMNOSUS GG 1 CAPSULE. PO SCH ×2 (08:26→19:51)
[2021-06-27] MEDS: IPRATROPIUM BROMIDE 0.06% NASAL SPRAY 15ML BOTTLE NS SCH ×2 (08:30→19:50)
[2021-06-27 15:50] VITALS: BP 119/71
[2021-06-27] MEDS: ATORVASTATIN CALCIUM 10 MG TABLET. PO SCH (19:51)
--- NOTE | 2021-06-27 21:34 | PDOC ---
Exam Note: Daren Note: Please also refer to the separate dictated note~for this date of service dictated separately.~Patient seen individually. Discussed the patient with Nursing staff reviewed the chart.~Reviewed interim history and current functioning. Reviewed vital signs,~Labs/ Radiology~and current medications noted below. Continue current treatment with the changes noted in the dictated addendum note Assessment: Vital Signs/I&O: Vital Signs Date Time Temp Pulse Resp B/P (MAP) Pulse Ox O2 Delivery O2 Flow Rate FiO2 06/27/21 20:21 94 06/27/21 15:50 99.2 91 20 119/71 (87) 06/26/21 10:10 Room Air I & O 06/26/21 06/26/21 06/27/21 15:00 23:00 07:00 Intake Total 360 ml 540 ml Balance 360 ml 540 ml Labs: Laboratory Tests Test 06/27/21 05:17 POC SARS CoV-2 Antigen Negative (NEGATIVE) Current Medications: Meds: Laboratory Tests Test 06/27/21 05:17 POC SARS CoV-2 Antigen Negative Current Medications Medications (Trade) Dose Ordered Sig/Daisy Route PRN Reason Start Time Stop Time Status Last Admin Dose Admin Acetaminophen (Tylenol) 650 mg PRN Q6HRS PRN PO MILD PAIN / TEMP > 100.3'F 05/11/21 16:15 06/26/21 04:07 Multi-Ingredient Ointment (Analgesic [place]) 1 eva PRN QID PRN TP MUSCLE PAIN 05/11/21 16:15 Al Hydroxide/Mg Hydroxide (Mylanta Plus Xs) 15 ml PRN AFTMEALHC PRN PO DYSPEPSIA 05/11/21 16:15 Magnesium Hydroxide (Milk Of Magnesia) 2,400 mg PRN QHS PRN PO CONSTIPATION 05/11/21 16:15 Nicotine (Nicoderm Cq 14mg Patch) 1 patch DAILY TD 05/12/21 09:00 05/30/21 17:27 DC 05/29/21 08:46 Ascorbic Acid (Vitamin C) 500 mg DAILY PO 05/12/21 09:00 06/27/21 08:25 Aspirin (Aspirin Chewable) 81 mg DAILY PO 05/12/21 09:00 06/27/21 08:26 Nicotine (Nicoderm Cq 14mg Patch) 1 patch DAILY TD 05/12/21 09:00 UNV Potassium Chloride (Klor-Con) 40 meq DAILY PO 05/12/21 09:00 06/27/21 08:25 Sennosides (Senna) 8.6 mg DAILY PO 05/12/21 09:00 06/27/21 08:26 Sertraline HCl (Zoloft) 125 mg DAILY PO 05/12/21 09:00 05/18/21 18:20 DC 05/18/21 08:59 Vitamin D (Vitamin D3) 1,000 unit DAILY PO 05/12/21 09:00 06/27/21 08:25 Cyanocobalamin (Vitamin B-12) 1,000 mcg [id number] PO 05/12/21 09:00 06/09/21 08:29 Polyethylene Glycol (miraLAX) 17 gm DAILY PO 05/12/21 09:00 06/27/21 08:24 Atorvastatin Calcium (Lipitor) 10 mg QHS PO 05/12/21 21:00 06/27/21 19:51 Quetiapine Fumarate (SEROquel) 25 mg PRN BID PRN PO AGITATION 05/12/21 07:15 05/19/21 19:14 DC 05/19/21 09:35 Divalproex Sodium (Depakote Sprinkles) 125 mg [id number] PO 05/12/21 09:00 05/12/21 16:01 DC 05/12/21 08:19 Ipratropium [place] (Atrovent Nasal) 1 spray BID NS 05/12/21 09:00 06/27/21 19:50 Divalproex Sodium (Depakote Sprinkles) 250 mg [id number] PO 05/12/21 16:00 05/16/21 18:09 DC 05/16/21 15:00 Cefdinir (Omnicef) 300 mg BID PO 05/14/21 21:00 05/20/21 22:00 DC 05/20/21 21:00 Lactobacillus Rhamnosus (Culturelle) 1 cap BID PO 05/14/21 21:00 06/27/21 19:51 Carbidopa/Levodopa (Sinemet 25/100) 1 tab TID PO 05/15/21 21:00 06/27/21 19:51 Divalproex Sodium (Depakote Sprinkles) 375 mg BID94 PO 05/17/21 09:00 05/27/21 19:14 DC 05/27/21 14:52 Sertraline HCl (Zoloft) 150 mg DAILY PO 05/19/21 09:00 06/01/21 11:53 DC 06/01/21 09:01 Quetiapine Fumarate (SEROquel) 25 mg 0900,1700 PO 05/20/21 09:00 05/23/21 18:17 DC 05/23/21 17:00 Olanzapine (ZyPREXA ZYDIS) 2.5 mg PRN Q2HR PRN PO PSYCHOSIS 05/20/21 10:00 06/15/21 08:58 Quetiapine Fumarate (SEROquel) 25 mg 0900,1300,1700 PO 05/24/21 09:00 05/25/21 11:57 DC 05/25/21 09:00 Quetiapine Fumarate (SEROquel) 25 mg 0900,1200,1500,1800 PO 05/25/21 12:00 06/27/21 17:05 Divalproex Sodium (Depakote Sprinkles) 500 mg BID94 PO 05/28/21 09:00 06/07/21 17:03 DC 06/07/21 08:54 Nicotine (Nicoderm Cq 7mg Patch) 1 patch DAILY TD 05/31/21 09:00 06/27/21 08:26 Sertraline HCl (Zoloft) 175 mg DAILY PO 06/02/21 09:00 06/27/21 08:25 Divalproex Sodium (Depakote Sprinkles) 250 mg BID94 PO 06/08/21 09:00 06/07/21 17:07 DC Divalproex Sodium (Depakote Sprinkles) 250 mg BID94 PO 06/07/21 17:15 06/27/21 14:46 Artificial Tears (Artificial Tears) 1 drop PRN Q4HRS PRN OS DRY EYE 06/11/21 16:00 06/11/21 18:00 Acetaminophen/ Hydrocodone Bitart (Lortab 5/325) 1 tab PRN Q4HRS PRN PO MODERATE PAIN 4-6 06/26/21 06:00 06/27/21 19:51 I have reviewed the current psychotropics carefully including drug interactions. Risk benefit ratio favors no change other than as noted in my dictated progress note. Diagnosis: Problems: (1) Impulse control disorder, unspecified (2) Anxiety disorder, unspecified (3) Dementia, vascular, with depression (4) Dementia, vascular, with delusions (5) Dementia in Alzheimer's disease with depression (6) Dementia in Alzheimer's disease with delusions (7) Dementia of the Alzheimer's type with early onset with behavioral disturbance (8) Major neurocognitive disorder (9) Major depressive disorder, recurrent episode (10) Mild cognitive impairment MICHAEL MCKEON MD Jun 27, 2021 21:34
[2021-06-28] MEDS: HYDROcodone/APAP 5/325MG 1 TAB TABLET PO PRN ×3 (02:53→21:19)
[2021-06-28 05:36] VITALS: BP 130/67
[2021-06-28] MEDS: POLYETHYLENE GLYCOL 3350 17 GM PACKET. PO SCH (08:26)
[2021-06-28] MEDS: SENNOSIDES 8.6 MG TABLET PO SCH (08:27)
[2021-06-28] MEDS: DIVALPROEX 125 MG CAP.SPRINK PO SCH ×2 (08:27→15:22)
[2021-06-28] MEDS: SERTRALINE 50 MG TABLET. PO SCH (08:27)
[2021-06-28] MEDS: NICOTINE 7MG PATCH. TD SCH (08:27)
[2021-06-28] MEDS: CARBIDOPA/LEVODOPA 25/100MG TABLET PO SCH ×3 (08:28→21:18)
[2021-06-28] MEDS: LACTOBACILLUS RHAMNOSUS GG 1 CAPSULE. PO SCH ×2 (08:28→21:18)
[2021-06-28] MEDS: ASCORBIC ACID 500 MG TABLET PO SCH (08:28)
[2021-06-28] MEDS: CHOLECALCIFEROL (VITAMIN D3) 1,000 UNIT TABLET PO SCH (08:28)
[2021-06-28] MEDS: ASPIRIN CHEWABLE 81 MG TABLET. PO SCH (08:28)
[2021-06-28] MEDS: POTASSIUM CHLORIDE 20 MEQ TABLET.ER. PO SCH (08:28)
[2021-06-28] MEDS: QUEtiapine 25 MG TABLET. PO SCH ×4 (08:28→18:00)
[2021-06-28] MEDS: IPRATROPIUM BROMIDE 0.06% NASAL SPRAY 15ML BOTTLE NS SCH ×2 (09:00→21:19)
[2021-06-28 15:55] VITALS: BP 136/82
[2021-06-28] MEDS: MAGNESIUM HYDROXIDE 2,400 MG/30 ML ORAL.SUSP. PO PRN (21:17)
[2021-06-28] MEDS: ATORVASTATIN CALCIUM 10 MG TABLET. PO SCH (21:18)
--- NOTE | 2021-06-28 21:42 | PDOC ---
Exam Note: Daren Note: This note is a late entry for 06/26/2021 covers elements not covered in my initial note. Subjective: The patient was seen individually on 06/26/2021, discussed and reviewed the chart with Karey MATIAS. The patient slept 8-1/4 hours previous night. I met with the patient in the evening in his room. He had a fall the day before and has rib fracture, complains of pain. Review of Systems: Impaired ambulation, in wheelchair. No CV, , pulmonary, eye system symptoms on review. Mental Status Exam: The patient is oriented to himself and situation. Speech coherent, has some latency. Abstraction fair. Computation impaired. Language function intact. Mood and affect anxious. Laboratory Data: Reviewed. 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 Anxiety disorder unspecified. Impulse control disorder unspecified. Plan: No change from initial note including Depakote, Zoloft, Seroquel and Zyprexa p.r.n. We will use analgesics p.r.n. for his rib pain. Defer to Dr. Nuñez. Assessment: Vital Signs/I&O: Vital Signs Date Time Temp Pulse Resp B/P (MAP) Pulse Ox O2 Delivery O2 Flow Rate FiO2 06/28/21 21:19 95 06/28/21 15:55 98.0 98 20 136/82 (100) Room Air I & O 06/27/21 06/27/21 06/28/21 15:00 23:00 07:00 Intake Total 600 ml 600 ml Balance 600 ml 600 ml Current Medications: I have reviewed the current psychotropics carefully including drug interactions. Risk benefit ratio favors no change other than as noted in my dictated progress note. Diagnosis: Problems: (1) Impulse control disorder, unspecified (2) Anxiety disorder, unspecified (3) Dementia, vascular, with depression (4) Dementia, vascular, with delusions (5) Dementia in Alzheimer's disease with depression (6) Dementia in Alzheimer's disease with delusions (7) Dementia of the Alzheimer's type with early onset with behavioral disturbance (8) Major neurocognitive disorder (9) Major depressive disorder, recurrent episode (10) Mild cognitive impairment MICHAEL MCKEON MD Jun 28, 2021 21:42
--- NOTE | 2021-06-28 22:03 | PDOC ---
Exam Note: Daren Note: This note is a late entry for 06/27/2021 covers elements not covered in my initial note. Subjective: The patient was seen individually on 06/27/2021, discussed and reviewed the chart with Karey MATIAS. The patient slept 4-1/2 hours previous night. I met with the patient in the dayroom where he was watching [employer]. He has been otherwise quite appropriate. He complains of rib pain. Received Lortab x2 at night and twice today. He is otherwise cooperative. He is come out of the dayroom twice during the day. Appetite is poor. Previously he was having double portions and now much less probably due to the pain. Review of Systems: Impaired ambulation, in wheelchair. Hard of hearing. No CV, , pulmonary, eye system symptoms on review. Mental Status Exam: The patient is awake, alert, oriented. Speech has some latency, coherent. Abstraction fair. Computation impaired. Language function intact. Mood and affect somewhat dysphoric, anxious but improved. No suicidal or homicidal ideation. Laboratory Data: Reviewed. 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 Anxiety disorder unspecified. Impulse control disorder unspecified. Plan: No change from initial note. Assessment: Vital Signs/I&O: Vital Signs Date Time Temp Pulse Resp B/P (MAP) Pulse Ox O2 Delivery O2 Flow Rate FiO2 06/28/21 21:57 95 06/28/21 15:55 98.0 98 20 136/82 (100) Room Air I & O 06/27/21 06/27/21 06/28/21 15:00 23:00 07:00 Intake Total 600 ml 600 ml Balance 600 ml 600 ml Current Medications: I have reviewed the current psychotropics carefully including drug interactions. Risk benefit ratio favors no change other than as noted in my dictated progress note. Diagnosis: Problems: (1) Impulse control disorder, unspecified (2) Anxiety disorder, unspecified (3) Dementia, vascular, with depression (4) Dementia, vascular, with delusions (5) Dementia in Alzheimer's disease with depression (6) Dementia in Alzheimer's disease with delusions (7) Dementia of the Alzheimer's type with early onset with behavioral disturbance (8) Major neurocognitive disorder (9) Major depressive disorder, recurrent episode (10) Mild cognitive impairment MICHAEL MCKEON MD 16, 2022 22:03
--- NOTE | 2021-06-28 22:04 | PDOC ---
Exam Note: Daren Note: Please also refer to the separate dictated note~for this date of service dictated separately.~Patient seen individually. Discussed the patient with Nursing staff reviewed the chart.~Reviewed interim history and current functioning. Reviewed vital signs,~Labs/ Radiology~and current medications noted below. Continue current treatment with the changes noted in the dictated addendum note Assessment: Vital Signs/I&O: Vital Signs Date Time Temp Pulse Resp B/P (MAP) Pulse Ox O2 Delivery O2 Flow Rate FiO2 06/28/21 21:57 95 06/28/21 15:55 98.0 98 20 136/82 (100) Room Air I & O 06/27/21 06/27/21 06/28/21 15:00 23:00 07:00 Intake Total 600 ml 600 ml Balance 600 ml 600 ml Current Medications: Meds: Current Medications Medications (Trade) Dose Ordered Sig/Daisy Route PRN Reason Start Time Stop Time Status Last Admin Dose Admin Acetaminophen (Tylenol) 650 mg PRN Q6HRS PRN PO MILD PAIN / TEMP > 100.3'F 05/11/21 16:15 06/26/21 04:07 Multi-Ingredient Ointment (Analgesic [place]) 1 eva PRN QID PRN TP MUSCLE PAIN 05/11/21 16:15 Al Hydroxide/Mg Hydroxide (Mylanta Plus Xs) 15 ml PRN AFTMEALHC PRN PO DYSPEPSIA 05/11/21 16:15 Magnesium Hydroxide (Milk Of Magnesia) 2,400 mg PRN QHS PRN PO CONSTIPATION 05/11/21 16:15 06/28/21 21:17 Nicotine (Nicoderm Cq 14mg Patch) 1 patch DAILY TD 05/12/21 09:00 05/30/21 17:27 DC 05/29/21 08:46 Ascorbic Acid (Vitamin C) 500 mg DAILY PO 05/12/21 09:00 06/28/21 08:28 Aspirin (Aspirin Chewable) 81 mg DAILY PO 05/12/21 09:00 06/28/21 08:28 Nicotine (Nicoderm Cq 14mg Patch) 1 patch DAILY TD 05/12/21 09:00 UNV Potassium Chloride (Klor-Con) 40 meq DAILY PO 05/12/21 09:00 06/28/21 08:28 Sennosides (Senna) 8.6 mg DAILY PO 05/12/21 09:00 06/28/21 08:27 Sertraline HCl (Zoloft) 125 mg DAILY PO 05/12/21 09:00 05/18/21 18:20 DC 05/18/21 08:59 Vitamin D (Vitamin D3) 1,000 unit DAILY PO 05/12/21 09:00 06/28/21 08:28 Cyanocobalamin (Vitamin B-12) 1,000 mcg [id number] PO 05/12/21 09:00 06/09/21 08:29 Polyethylene Glycol (miraLAX) 17 gm DAILY PO 05/12/21 09:00 06/28/21 08:26 Atorvastatin Calcium (Lipitor) 10 mg QHS PO 05/12/21 21:00 06/28/21 21:18 Quetiapine Fumarate (SEROquel) 25 mg PRN BID PRN PO AGITATION 05/12/21 07:15 05/19/21 19:14 DC 05/19/21 09:35 Divalproex Sodium (Depakote Sprinkles) 125 mg [id number] PO 05/12/21 09:00 05/12/21 16:01 DC 05/12/21 08:19 Ipratropium [place] (Atrovent Nasal) 1 spray BID NS 05/12/21 09:00 06/28/21 21:19 Divalproex Sodium (Depakote Sprinkles) 250 mg [id number] PO 05/12/21 16:00 05/16/21 18:09 DC 05/16/21 15:00 Cefdinir (Omnicef) 300 mg BID PO 05/14/21 21:00 05/20/21 22:00 DC 05/20/21 21:00 Lactobacillus Rhamnosus (Culturelle) 1 cap BID PO 05/14/21 21:00 06/28/21 21:18 Carbidopa/Levodopa (Sinemet 25/100) 1 tab TID PO 05/15/21 21:00 06/28/21 21:18 Divalproex Sodium (Depakote Sprinkles) 375 mg [id number] PO 05/17/21 09:00 05/27/21 19:14 DC 05/27/21 14:52 Sertraline HCl (Zoloft) 150 mg DAILY PO 05/19/21 09:00 06/01/21 11:53 DC 06/01/21 09:01 Quetiapine Fumarate (SEROquel) 25 mg 0900,1700 PO 05/20/21 09:00 05/23/21 18:17 DC 05/23/21 17:00 Olanzapine (ZyPREXA ZYDIS) 2.5 mg PRN Q2HR PRN PO PSYCHOSIS 05/20/21 10:00 06/28/21 05:11 Quetiapine Fumarate (SEROquel) 25 mg 0900,1300,1700 PO 05/24/21 09:00 05/25/21 11:57 DC 05/25/21 09:00 Quetiapine Fumarate (SEROquel) 25 mg 0900,1200,1500,1800 PO 05/25/21 12:00 06/28/21 18:00 Divalproex Sodium (Depakote Sprinkles) 500 mg [id number] PO 05/28/21 09:00 06/07/21 17:03 DC 06/07/21 08:54 Nicotine (Nicoderm Cq 7mg Patch) 1 patch DAILY TD 05/31/21 09:00 06/28/21 08:27 Sertraline HCl (Zoloft) 175 mg DAILY PO 06/02/21 09:00 06/28/21 08:27 Divalproex Sodium (Depakote Sprinkles) 250 mg [id number] PO 06/08/21 09:00 06/07/21 17:07 DC Divalproex Sodium (Depakote Sprinkles) 250 mg [id number] PO 06/07/21 17:15 06/28/21 15:22 Artificial Tears (Artificial Tears) 1 drop PRN Q4HRS PRN OS DRY EYE 06/11/21 16:00 06/11/21 18:00 Acetaminophen/ Hydrocodone Bitart (Lortab 5/325) 1 tab PRN Q4HRS PRN PO MODERATE PAIN 4-6 06/26/21 06:00 06/28/21 21:19 I have reviewed the current psychotropics carefully including drug interactions. Risk benefit ratio favors no change other than as noted in my dictated progress note. Diagnosis: Problems: (1) Impulse control disorder, unspecified (2) Anxiety disorder, unspecified (3) Dementia, vascular, with depression (4) Dementia, vascular, with delusions (5) Dementia in Alzheimer's disease with depression (6) Dementia in Alzheimer's disease with delusions (7) Dementia of the Alzheimer's type with early onset with behavioral disturbance (8) Major neurocognitive disorder (9) Major depressive disorder, recurrent episode (10) Mild cognitive impairment MICHAEL MCKEON MD Jun 28, 2021 22:04
[2021-06-29 05:52] VITALS: BP 127/75
[2021-06-29 06:02] LABS: BACTERIA,URINE MANY /HPF (0-FEW); CLARITY,URINE CLOUDY; COLOR,URINE YELLOW; GLUCOSE,URINE NEG (NEG); NITRITE,URINE POS (NEG); SQUAMOUS EPITHELIAL CELL,UR FEW /LPF; UROBILINOGEN,URINE 0.2 mg/dL (0.2 mg/dL); WBC,URINE 20-40 /HPF (0-4)
[2021-06-29] MEDS: POLYETHYLENE GLYCOL 3350 17 GM PACKET. PO SCH (08:41)
[2021-06-29] MEDS: ASPIRIN CHEWABLE 81 MG TABLET. PO SCH (08:42)
[2021-06-29] MEDS: POTASSIUM CHLORIDE 20 MEQ TABLET.ER. PO SCH (08:42)
[2021-06-29] MEDS: CHOLECALCIFEROL (VITAMIN D3) 1,000 UNIT TABLET PO SCH (08:42)
[2021-06-29] MEDS: ASCORBIC ACID 500 MG TABLET PO SCH (08:43)
[2021-06-29] MEDS: QUEtiapine 25 MG TABLET. PO SCH ×4 (08:43→18:00)
[2021-06-29] MEDS: CARBIDOPA/LEVODOPA 25/100MG TABLET PO SCH ×3 (08:43→20:46)
[2021-06-29] MEDS: DIVALPROEX 125 MG CAP.SPRINK PO SCH ×2 (08:43→15:19)
[2021-06-29] MEDS: LACTOBACILLUS RHAMNOSUS GG 1 CAPSULE. PO SCH ×2 (08:43→20:46)
[2021-06-29] MEDS: SERTRALINE 50 MG TABLET. PO SCH (08:43)
[2021-06-29] MEDS: SENNOSIDES 8.6 MG TABLET PO SCH (08:43)
[2021-06-29] MEDS: NICOTINE 7MG PATCH. TD SCH (09:00)
[2021-06-29] MEDS: IPRATROPIUM BROMIDE 0.06% NASAL SPRAY 15ML BOTTLE NS SCH ×2 (09:00→20:48)
--- NOTE | 2021-06-29 14:23 | TX PLAN ---
Interdisciplinary Tx Plan Admission Information May 11, 2021 at 14:29 Legal Status (on Admission): Voluntary DPOA/Guardian Name: Milvia patel Contact Other Contact Name: Mercedes LUND Other Contact Verified Code Status: Full Code Allergies: Coded Allergies: No Known Drug Allergies (Unverified , 02/17/20) Diagnoses Primary Diagnosis: Dementia, Vascular with Depression and BD Reasons for Admission: Depressed, Suicidal attempt, Poor impulse control Problem in Patient's Words: Concerned that he may need a higher level of care Additional Admission Comments: According to the intake, pt has acute suicidal ideations, attempted to drown himself in a pond, depressed, poor intake and refusing meds. Eloped from the facility, aggressive when doesn't want to do something Problems Active Problems: Withdrawn Inactive Problems: Medication complaint Pt Strengths/Limitations Ability for [place]: Poor Cognitive Functioning/Ability: Fair Communication Skills/Ability: Fair Financial Resources: Fair Insight/Judgement: Poor Intellectual Ability: Fair Physical Health: Poor Social Skills: Fair Stability in Family: Fair Stability in School/Work: Poor Verbal Skills: Fair Discharge Criteria Discharge Criteria: No need for close observ., Adequate arrangements @DC, Improved behavior, Improved mood/thought Preliminary Discharge Plan Preliminary DC Plan: Current Living Arrange. Special Precautions Fall Risk: Moderate Initial D/C Plan Pt to return to [facility] once stable. Identified Discharge Needs: Psychiatric care needs Currently Utilized Resources Currently Utilized Resources/P: Services through the [facility] Identified Problems/Hx/Goals Objectives/Short-Term Goals Short Term Goals: No Suicidal/Serjio. ideation Short Term Goals in Patient's: N/A Interventions/Frequency Staff Interventions/Frequency&: Psychiatrist to assess pt at least 3x per week for medication management. Social Work to assess pt at least 2x per week to identify barriers to care and discharge planning. Nursing to assess medication effects, behavior modification and completion of 15 minute checks. Encourage participation in group activities (if applicable) or 1:1 engagement based off activity dept goals. History Vocational History: Pt worked for the [employer] for the [employer] for many years. Retired due to "not liking people". Education: Pt graduated HS 12th grade Community Follow-up Will continue services through the [facility] Treatment Plan Explained Patient/Formula Weigher had this treatment plan explained to him/her as indicated by the signature below and has been given the opportunity to ask questions and make suggestions: Date: Patient/Formula Weigher Signature: Status Update Update Pt is eating a little over 50% of meals. It has been noted that pt has been getting double portions and only eating half; it will be recommended that pt go back to regular portions. Pt did have a UA gathered this morning with the culture still pending; pt was noted to be irritable this morning and thought he was mandated to stay in bed. It was noted that pt was told last night that he could be active and to practice deep breathing in order to prevent potential pneumonia with his broken ribs. Nursing also expressed concerns that pt would need to have his Sinemet reviewed as he appears to be losing more motor function in his legs and having some involuntary movements. Pt has been denied placements and will continue to work with pt dtr on the referrals. CHAVA JIANG Jun 29, 2021 14:23
[2021-06-29 16:10] VITALS: BP 113/63
[2021-06-29] MEDS: ATORVASTATIN CALCIUM 10 MG TABLET. PO SCH (20:46)
--- NOTE | 2021-06-29 22:00 | PDOC ---
Exam Note: Daren Note: Please also refer to the separate dictated note~for this date of service dictated separately.~Patient seen individually. Discussed the patient with Nursing staff reviewed the chart.~Reviewed interim history and current functioning. Reviewed vital signs,~Labs/ Radiology~and current medications noted below. Continue current treatment with the changes noted in the dictated addendum note Assessment: Vital Signs/I&O: Vital Signs Date Time Temp Pulse Resp B/P (MAP) Pulse Ox O2 Delivery O2 Flow Rate FiO2 06/29/21 16:10 98.2 18 113/63 (80) 06/29/21 05:52 73 93 Room Air I & O 06/28/21 06/28/21 06/29/21 15:00 23:00 07:00 Intake Total 720 ml 580 ml Balance 720 ml 580 ml Labs: Laboratory Tests Test 06/29/21 06:01 Urine Collection Type Unknown Urine Color Yellow Urine Clarity Cloudy Urine pH 7.5 Urine Specific [place] 1.020 Urine Protein Neg (NEG-TRACE) Urine Glucose (UA) Neg mg/dL (NEG) Urine Ketones (Stick) Neg mg/dL (NEG) Urine Blood Small (NEG) Urine Nitrite Pos (NEG) Urine Bilirubin Neg (NEG) Urine Urobilinogen Dipstick 0.2 mg/dL (0.2 mg/dL) Urine Leukocyte Esterase Small (NEG) Urine RBC 11-20 /HPF (0-2) Urine WBC 20-40 /HPF (0-4) Urine Squamous Epithelial Cells Few /LPF Urine Bacteria Many /HPF (0-FEW) Current Medications: Meds: Laboratory Tests Test 06/29/21 06:01 Urine Collection Type Unknown Urine Color Yellow Urine Clarity Cloudy Urine pH 7.5 Urine Specific [place] 1.020 Urine Protein Neg Urine Glucose (UA) Neg mg/dL Urine Ketones (Stick) Neg mg/dL Urine Blood Small Urine Nitrite Pos Urine Bilirubin Neg Urine Urobilinogen Dipstick 0.2 mg/dL Urine Leukocyte Esterase Small Urine RBC 11-20 /HPF Urine WBC 20-40 /HPF Urine Squamous Epithelial Cells Few /LPF Urine Bacteria Many /HPF Current Medications Medications (Trade) Dose Ordered Sig/Daisy Route PRN Reason Start Time Stop Time Status Last Admin Dose Admin Acetaminophen (Tylenol) 650 mg PRN Q6HRS PRN PO MILD PAIN / TEMP > 100.3'F 05/11/21 16:15 06/26/21 04:07 Multi-Ingredient Ointment (Analgesic [place]) 1 eva PRN QID PRN TP MUSCLE PAIN 05/11/21 16:15 Al Hydroxide/Mg Hydroxide (Mylanta Plus Xs) 15 ml PRN AFTMEALHC PRN PO DYSPEPSIA 05/11/21 16:15 Magnesium Hydroxide (Milk Of Magnesia) 2,400 mg PRN QHS PRN PO CONSTIPATION 05/11/21 16:15 06/28/21 21:17 Nicotine (Nicoderm Cq 14mg Patch) 1 patch DAILY TD 05/12/21 09:00 05/30/21 17:27 DC 05/29/21 08:46 Ascorbic Acid (Vitamin C) 500 mg DAILY PO 05/12/21 09:00 06/29/21 08:43 Aspirin (Aspirin Chewable) 81 mg DAILY PO 05/12/21 09:00 06/29/21 08:42 Nicotine (Nicoderm Cq 14mg Patch) 1 patch DAILY TD 05/12/21 09:00 UNV Potassium Chloride (Klor-Con) 40 meq DAILY PO 05/12/21 09:00 06/29/21 08:42 Sennosides (Senna) 8.6 mg DAILY PO 05/12/21 09:00 06/29/21 08:43 Sertraline HCl (Zoloft) 125 mg DAILY PO 05/12/21 09:00 05/18/21 18:20 DC 05/18/21 08:59 Vitamin D (Vitamin D3) 1,000 unit DAILY PO 05/12/21 09:00 06/29/21 08:42 Cyanocobalamin (Vitamin B-12) 1,000 mcg [id number] PO 05/12/21 09:00 06/09/21 08:29 Polyethylene Glycol (miraLAX) 17 gm DAILY PO 05/12/21 09:00 06/29/21 08:41 Atorvastatin Calcium (Lipitor) 10 mg QHS PO 05/12/21 21:00 06/29/21 20:46 Quetiapine Fumarate (SEROquel) 25 mg PRN BID PRN PO AGITATION 05/12/21 07:15 05/19/21 19:14 DC 05/19/21 09:35 Divalproex Sodium (Depakote Sprinkles) 125 mg [id number] PO 05/12/21 09:00 05/12/21 16:01 DC 05/12/21 08:19 Ipratropium [place] (Atrovent Nasal) 1 spray BID NS 05/12/21 09:00 06/29/21 20:48 Divalproex Sodium (Depakote Sprinkles) 250 mg [id number] PO 05/12/21 16:00 05/16/21 18:09 DC 05/16/21 15:00 Cefdinir (Omnicef) 300 mg BID PO 05/14/21 21:00 05/20/21 22:00 DC 05/20/21 21:00 Lactobacillus Rhamnosus (Culturelle) 1 cap BID PO 05/14/21 21:00 06/29/21 20:46 Carbidopa/Levodopa (Sinemet 25/100) 1 tab TID PO 05/15/21 21:00 06/29/21 20:46 Divalproex Sodium (Depakote Sprinkles) 375 mg [id number] PO 05/17/21 09:00 05/27/21 19:14 DC 05/27/21 14:52 Sertraline HCl (Zoloft) 150 mg DAILY PO 05/19/21 09:00 06/01/21 11:53 DC 06/01/21 09:01 Quetiapine Fumarate (SEROquel) 25 mg 0900,1700 PO 05/20/21 09:00 05/23/21 18:17 DC 05/23/21 17:00 Olanzapine (ZyPREXA ZYDIS) 2.5 mg PRN Q2HR PRN PO PSYCHOSIS 05/20/21 10:00 06/29/21 15:19 Quetiapine Fumarate (SEROquel) 25 mg 0900,1300,1700 PO 05/24/21 09:00 05/25/21 11:57 DC 05/25/21 09:00 Quetiapine Fumarate (SEROquel) 25 mg 0900,1200,1500,1800 PO 05/25/21 12:00 06/29/21 14:02 Divalproex Sodium (Depakote Sprinkles) 500 mg [id number] PO 05/28/21 09:00 06/07/21 17:03 DC 06/07/21 08:54 Nicotine (Nicoderm Cq 7mg Patch) 1 patch DAILY TD 05/31/21 09:00 3/17/22 09:00 Sertraline HCl (Zoloft) 175 mg DAILY PO 06/02/21 09:00 06/29/21 08:43 Divalproex Sodium (Depakote Sprinkles) 250 mg [id number] PO 06/08/21 09:00 06/07/21 17:07 DC Divalproex Sodium (Depakote Sprinkles) 250 mg [id number] PO 06/07/21 17:15 06/29/21 15:19 Artificial Tears (Artificial Tears) 1 drop PRN Q4HRS PRN OS DRY EYE 06/11/21 16:00 06/11/21 18:00 Acetaminophen/ Hydrocodone Bitart (Lortab 5/325) 1 tab PRN Q4HRS PRN PO MODERATE PAIN 4-6 06/26/21 06:00 06/28/21 21:19 I have reviewed the current psychotropics carefully including drug interactions. Risk benefit ratio favors no change other than as noted in my dictated progress note. Diagnosis: Problems: (1) Impulse control disorder, unspecified (2) Anxiety disorder, unspecified (3) Dementia, vascular, with depression (4) Dementia, vascular, with delusions (5) Dementia in Alzheimer's disease with depression (6) Dementia in Alzheimer's disease with delusions (7) Dementia of the Alzheimer's type with early onset with behavioral disturbance (8) Major neurocognitive disorder (9) Major depressive disorder, recurrent episode (10) Mild cognitive impairment MICHAEL MCKEON MD Jun 29, 2021 22:00
[2021-06-30 06:10] LABS: BASO % 1 % (0-3); EOS # 0.2 x10^3/uL (0.0-0.7); EOS % 3 % (0-3); HEMATOCRIT 35.6 % (39.0-53.0); HEMOGLOBIN 12.1 g/dL (13.0-17.5); LYMPH # 0.8 x10^3/uL (1.0-4.8); LYMPH % 14 % (24-48); MEAN CORPUSCULAR HEMOGLOBIN 33 pg (25-35); MEAN CORPUSCULAR HGB CONC 34 g/dL (31-37); MEAN CORPUSCULAR VOLUME 97 fL (79-100); MONO # 0.5 x10^3/uL (0.0-1.1); MONO % 9 % (0-9); NEUT # 4.1 x10^3uL (1.8-7.7); NEUT % 73 % (31-73); PLATELET COUNT 141 x10^3/uL (140-400); RED BLOOD COUNT 3.68 x10^6/uL (4.30-5.70); RED CELL DISTRIBUTION WIDTH 13.8 % (11.5-14.5); WHITE BLOOD COUNT 5.6 x10^3/uL (4.0-11.0)
[2021-06-30 06:16] VITALS: BP 116/53
[2021-06-30 06:28] LABS: ALBUMIN 3.1 g/dL (3.4-5.0); ALBUMIN/GLOBULIN RATIO 1.1 (1.0-1.7); CALCIUM 8.1 mg/dL (8.5-10.1); CREATININE 0.8 mg/dL (0.7-1.3); GFR 94.8; TOTAL BILIRUBIN 0.6 mg/dL (0.2-1.0); TOTAL PROTEIN 5.8 g/dL (6.4-8.2)
[2021-06-30] MEDS: IPRATROPIUM BROMIDE 0.06% NASAL SPRAY 15ML BOTTLE NS SCH ×2 (09:00→21:07)
[2021-06-30] MEDS: ASPIRIN CHEWABLE 81 MG TABLET. PO SCH (10:21)
[2021-06-30] MEDS: LACTOBACILLUS RHAMNOSUS GG 1 CAPSULE. PO SCH ×2 (10:21→21:06)
[2021-06-30] MEDS: NICOTINE 7MG PATCH. TD SCH (10:22)
[2021-06-30] MEDS: SENNOSIDES 8.6 MG TABLET PO SCH (10:23)
[2021-06-30] MEDS: CARBIDOPA/LEVODOPA 25/100MG TABLET PO SCH ×3 (10:25→21:06)
[2021-06-30] MEDS: QUEtiapine 25 MG TABLET. PO SCH ×4 (10:25→17:29)
[2021-06-30] MEDS: CHOLECALCIFEROL (VITAMIN D3) 1,000 UNIT TABLET PO SCH (10:25)
[2021-06-30] MEDS: DIVALPROEX 125 MG CAP.SPRINK PO SCH ×2 (10:25→17:29)
[2021-06-30] MEDS: POTASSIUM CHLORIDE 20 MEQ TABLET.ER. PO SCH (10:25)
[2021-06-30] MEDS: POLYETHYLENE GLYCOL 3350 17 GM PACKET. PO SCH (10:26)
[2021-06-30] MEDS: SERTRALINE 50 MG TABLET. PO SCH (10:26)
[2021-06-30] MEDS: ASCORBIC ACID 500 MG TABLET PO SCH (10:26)
[2021-06-30 16:29] VITALS: BP 138/74
[2021-06-30] MEDS: ATORVASTATIN CALCIUM 10 MG TABLET. PO SCH (21:06)
--- NOTE | 2021-06-30 21:51 | PDOC ---
Exam Note: Daren Note: Please also refer to the separate dictated note~for this date of service dictated separately.~Patient seen individually. Discussed the patient with Nursing staff reviewed the chart.~Reviewed interim history and current functioning. Reviewed vital signs,~Labs/ Radiology~and current medications noted below. Continue current treatment with the changes noted in the dictated addendum note Assessment: Vital Signs/I&O: Vital Signs Date Time Temp Pulse Resp B/P (MAP) Pulse Ox O2 Delivery O2 Flow Rate FiO2 06/30/21 16:29 97.9 70 18 138/74 (95) 92 06/30/21 06:16 Room Air I & O 06/29/21 06/29/21 06/30/21 15:00 23:00 07:00 Intake Total 720 ml 360 ml Balance 720 ml 360 ml Labs: Laboratory Tests Test 06/30/21 05:50 White Blood Count 5.6 x10^3/uL (4.0-11.0) Red Blood Count 3.68 x10^6/uL (4.30-5.70) L Hemoglobin 12.1 g/dL (13.0-17.5) L Hematocrit 35.6 % (39.0-53.0) L Mean Corpuscular Volume 97 fL (79-100) Mean Corpuscular Hemoglobin 33 pg (25-35) Mean Corpuscular Hemoglobin Concent 34 g/dL (31-37) Red Cell Distribution Width 13.8 % (11.5-14.5) Platelet Count 141 x10^3/uL (140-400) Neutrophils (%) (Auto) 73 % (31-73) Lymphocytes (%) (Auto) 14 % (24-48) L Monocytes (%) (Auto) 9 % (0-9) Eosinophils (%) (Auto) 3 % (0-3) Basophils (%) (Auto) 1 % (0-3) Neutrophils # (Auto) 4.1 x10^3uL (1.8-7.7) Lymphocytes # (Auto) 0.8 x10^3/uL (1.0-4.8) L Monocytes # (Auto) 0.5 x10^3/uL (0.0-1.1) Eosinophils # (Auto) 0.2 x10^3/uL (0.0-0.7) Basophils # (Auto) 0.0 x10^3/uL (0.0-0.2) Sodium Level 145 mmol/L (136-145) Potassium Level 4.0 mmol/L (3.5-5.1) Chloride Level 109 mmol/L (98-107) H Carbon Dioxide Level 26 mmol/L (21-32) Anion Gap 10 (6-14) Blood Urea Nitrogen 20 mg/dL (8-26) Creatinine 0.8 mg/dL (0.7-1.3) Estimated GFR (Cockcroft-Gault) 94.8 BUN/Creatinine Ratio 25 (6-20) H Glucose Level 95 mg/dL (70-99) Calcium Level 8.1 mg/dL (8.5-10.1) L Total Bilirubin 0.6 mg/dL (0.2-1.0) Aspartate Amino Transferase (AST) 15 U/L (15-37) Alanine Aminotransferase (ALT) 9 U/L (16-63) L Alkaline Phosphatase 72 U/L (46-116) Total Protein 5.8 g/dL (6.4-8.2) L Albumin 3.1 g/dL (3.4-5.0) L Albumin/Globulin Ratio 1.1 (1.0-1.7) Current Medications: Meds: Laboratory Tests Test 06/30/21 05:50 White Blood Count 5.6 x10^3/uL Red Blood Count 3.68 x10^6/uL Hemoglobin 12.1 g/dL Hematocrit 35.6 % Mean Corpuscular Volume 97 fL Mean Corpuscular Hemoglobin 33 pg Mean Corpuscular Hemoglobin Concent 34 g/dL Red Cell Distribution Width 13.8 % Platelet Count 141 x10^3/uL Neutrophils (%) (Auto) 73 % Lymphocytes (%) (Auto) 14 % Monocytes (%) (Auto) 9 % Eosinophils (%) (Auto) 3 % Basophils (%) (Auto) 1 % Neutrophils # (Auto) 4.1 x10^3uL Lymphocytes # (Auto) 0.8 x10^3/uL Monocytes # (Auto) 0.5 x10^3/uL Eosinophils # (Auto) 0.2 x10^3/uL Basophils # (Auto) 0.0 x10^3/uL Sodium Level 145 mmol/L Potassium Level 4.0 mmol/L Chloride Level 109 mmol/L Carbon Dioxide Level 26 mmol/L Anion Gap 10 Blood Urea Nitrogen 20 mg/dL Creatinine 0.8 mg/dL Estimated GFR (Cockcroft-Gault) 94.8 BUN/Creatinine Ratio 25 Glucose Level 95 mg/dL Calcium Level 8.1 mg/dL Total Bilirubin 0.6 mg/dL Aspartate Amino Transf (AST/SGOT) 15 U/L Alanine Aminotransferase (ALT/SGPT) 9 U/L Alkaline Phosphatase 72 U/L Total Protein 5.8 g/dL Albumin 3.1 g/dL Albumin/Globulin Ratio 1.1 Current Medications Medications (Trade) Dose Ordered Sig/Daisy Route PRN Reason Start Time Stop Time Status Last Admin Dose Admin Acetaminophen (Tylenol) 650 mg PRN Q6HRS PRN PO MILD PAIN / TEMP > 100.3'F 05/11/21 16:15 06/26/21 04:07 Multi-Ingredient Ointment (Analgesic [place]) 1 eva PRN QID PRN TP MUSCLE PAIN 05/11/21 16:15 Al Hydroxide/Mg Hydroxide (Mylanta Plus Xs) 15 ml PRN AFTMEALHC PRN PO DYSPEPSIA 05/11/21 16:15 Magnesium Hydroxide (Milk Of Magnesia) 2,400 mg PRN QHS PRN PO CONSTIPATION 05/11/21 16:15 06/28/21 21:17 Nicotine (Nicoderm Cq 14mg Patch) 1 patch DAILY TD 05/12/21 09:00 05/30/21 17:27 DC 05/29/21 08:46 Ascorbic Acid (Vitamin C) 500 mg DAILY PO 05/12/21 09:00 06/30/21 10:26 Aspirin (Aspirin Chewable) 81 mg DAILY PO 05/12/21 09:00 06/30/21 10:21 Nicotine (Nicoderm Cq 14mg Patch) 1 patch DAILY TD 05/12/21 09:00 UNV Potassium Chloride (Klor-Con) 40 meq DAILY PO 05/12/21 09:00 06/30/21 10:25 Sennosides (Senna) 8.6 mg DAILY PO 05/12/21 09:00 06/30/21 10:23 Sertraline HCl (Zoloft) 125 mg DAILY PO 05/12/21 09:00 05/18/21 18:20 DC 05/18/21 08:59 Vitamin D (Vitamin D3) 1,000 unit DAILY PO 05/12/21 09:00 06/30/21 10:25 Cyanocobalamin (Vitamin B-12) 1,000 mcg [id number] PO 05/12/21 09:00 06/09/21 08:29 Polyethylene Glycol (miraLAX) 17 gm DAILY PO 05/12/21 09:00 06/30/21 10:26 Atorvastatin Calcium (Lipitor) 10 mg QHS PO 05/12/21 21:00 06/30/21 21:06 Quetiapine Fumarate (SEROquel) 25 mg PRN BID PRN PO AGITATION 05/12/21 07:15 05/19/21 19:14 DC 05/19/21 09:35 Divalproex Sodium (Depakote Sprinkles) 125 mg [id number] PO 05/12/21 09:00 05/12/21 16:01 DC 05/12/21 08:19 Ipratropium [place] (Atrovent Nasal) 1 spray BID NS 05/12/21 09:00 06/30/21 21:07 Divalproex Sodium (Depakote Sprinkles) 250 mg [id number] PO 05/12/21 16:00 05/16/21 18:09 DC 05/16/21 15:00 Cefdinir (Omnicef) 300 mg BID PO 05/14/21 21:00 05/20/21 22:00 DC 05/20/21 21:00 Lactobacillus Rhamnosus (Culturelle) 1 cap BID PO 05/14/21 21:00 06/30/21 21:06 Carbidopa/Levodopa (Sinemet 25/100) 1 tab TID PO 05/15/21 21:00 06/30/21 21:06 Divalproex Sodium (Depakote Sprinkles) 375 mg [id number] PO 05/17/21 09:00 05/27/21 19:14 DC 05/27/21 14:52 Sertraline HCl (Zoloft) 150 mg DAILY PO 05/19/21 09:00 06/01/21 11:53 DC 06/01/21 09:01 Quetiapine Fumarate (SEROquel) 25 mg 0900,1700 PO 05/20/21 09:00 05/23/21 18:17 DC 05/23/21 17:00 Olanzapine (ZyPREXA ZYDIS) 2.5 mg PRN Q2HR PRN PO PSYCHOSIS 05/20/21 10:00 06/29/21 15:19 Quetiapine Fumarate (SEROquel) 25 mg 0900,1300,1700 PO 05/24/21 09:00 05/25/21 11:57 DC 05/25/21 09:00 Quetiapine Fumarate (SEROquel) 25 mg 0900,1200,1500,1800 PO 05/25/21 12:00 06/30/21 17:29 Divalproex Sodium (Depakote Sprinkles) 500 mg [id number] PO 05/28/21 09:00 06/07/21 17:03 DC 06/07/21 08:54 Nicotine (Nicoderm Cq 7mg Patch) 1 patch DAILY TD 05/31/21 09:00 06/30/21 10:22 Sertraline HCl (Zoloft) 175 mg DAILY PO 06/02/21 09:00 06/30/21 10:26 Divalproex Sodium (Depakote Sprinkles) 250 mg [id number] PO 06/08/21 09:00 06/07/21 17:07 DC Divalproex Sodium (Depakote Sprinkles) 250 mg [id number] PO 06/07/21 17:15 06/30/21 17:29 Artificial Tears (Artificial Tears) 1 drop PRN Q4HRS PRN OS DRY EYE 06/11/21 16:00 06/11/21 18:00 Acetaminophen/ Hydrocodone Bitart (Lortab 5/325) 1 tab PRN Q4HRS PRN PO MODERATE PAIN 4-6 06/26/21 06:00 06/28/21 21:19 I have reviewed the current psychotropics carefully including drug interactions. Risk benefit ratio favors no change other than as noted in my dictated progress note. Diagnosis: Problems: (1) Impulse control disorder, unspecified (2) Anxiety disorder, unspecified (3) Dementia, vascular, with depression (4) Dementia, vascular, with delusions (5) Dementia in Alzheimer's disease with depression (6) Dementia in Alzheimer's disease with delusions (7) Dementia of the Alzheimer's type with early onset with behavioral disturbance (8) Major neurocognitive disorder (9) Major depressive disorder, recurrent episode (10) Mild cognitive impairment MICHAEL MCKEON MD Jun 30, 2021 21:51
[2021-07-01 06:02] VITALS: BP 171/74
[2021-07-01] MEDS: POLYETHYLENE GLYCOL 3350 17 GM PACKET. PO SCH (08:42)
[2021-07-01] MEDS: SERTRALINE 50 MG TABLET. PO SCH (08:43)
[2021-07-01] MEDS: QUEtiapine 25 MG TABLET. PO SCH ×4 (08:43→17:17)
[2021-07-01] MEDS: NICOTINE 7MG PATCH. TD SCH (08:43)
[2021-07-01] MEDS: ASPIRIN CHEWABLE 81 MG TABLET. PO SCH (08:43)
[2021-07-01] MEDS: CARBIDOPA/LEVODOPA 25/100MG TABLET PO SCH ×3 (08:43→20:31)
[2021-07-01] MEDS: CHOLECALCIFEROL (VITAMIN D3) 1,000 UNIT TABLET PO SCH (08:43)
[2021-07-01] MEDS: DIVALPROEX 125 MG CAP.SPRINK PO SCH ×2 (08:44→17:17)
[2021-07-01] MEDS: SENNOSIDES 8.6 MG TABLET PO SCH (08:44)
[2021-07-01] MEDS: POTASSIUM CHLORIDE 20 MEQ TABLET.ER. PO SCH (08:44)
[2021-07-01] MEDS: LACTOBACILLUS RHAMNOSUS GG 1 CAPSULE. PO SCH ×2 (08:44→20:31)
[2021-07-01] MEDS: ASCORBIC ACID 500 MG TABLET PO SCH (08:44)
[2021-07-01] MEDS: IPRATROPIUM BROMIDE 0.06% NASAL SPRAY 15ML BOTTLE NS SCH ×2 (09:00→20:32)
--- NOTE | 2021-07-01 09:54 | PDOC ---
Exam Note: Daren Note: This note is a late entry for 06/28/2021 covers elements not covered in my initial note. Subjective: The patient was seen individually on 06/28/2021, discussed and reviewed the chart with Dora MATIAS. The patient slept 5-1/4 hours previous night. At times the patient gets a little irritable, cursed at staff in the morning. He sled out of his chair due to some agitation and then did better after that. I met with him in the evening in the dayroom. Review of Systems: Impaired ambulation, in wheelchair. Some pain in his chest from rib fractures. Hard of hearing. No CV, , pulmonary, eye system symptoms on review. Mental Status Exam: The patient is oriented reasonably. Speech has some latency, coherent. Abstraction fair. Computation impaired. Language function intact. Mood and affect somewhat anxious, irritable. No suicidal or homicidal ideation. Laboratory Data: Reviewed. 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 Anxiety disorder unspecified. Impulse control disorder unspecified. Plan: Continue to adjust his psychotropics as clinically indicated. Assessment: Vital Signs/I&O: Vital Signs Date Time Temp Pulse Resp B/P (MAP) Pulse Ox O2 Delivery O2 Flow Rate FiO2 07/01/21 06:02 98.2 69 18 171/74 (106) 95 06/30/21 06:16 Room Air I & O 06/30/21 06/30/21 07/01/21 15:00 23:00 07:00 Intake Total 240 ml Balance 240 ml Current Medications: I have reviewed the current psychotropics carefully including drug interactions. Risk benefit ratio favors no change other than as noted in my dictated progress note. Diagnosis: Problems: (1) Impulse control disorder, unspecified (2) Anxiety disorder, unspecified (3) Dementia, vascular, with depression (4) Dementia, vascular, with delusions (5) Dementia in Alzheimer's disease with depression (6) Dementia in Alzheimer's disease with delusions (7) Dementia of the Alzheimer's type with early onset with behavioral disturbance (8) Major neurocognitive disorder (9) Major depressive disorder, recurrent episode (10) Mild cognitive impairment MICHAEL MCKEON MD Jul 01, 2021 09:54
--- NOTE | 2021-07-01 10:06 | PDOC ---
Exam Note: Daren Note: This note is a late entry for 06/29/2021 covers elements not covered in my initial note. Subjective: The patient was reviewed at treatment team meeting individually in the morning on 06/29/2021 with Eva Troncoso, Amanda Mobley, and Maria Esther Piña (social professionals), Clara, activity therapy, and Dora RN, discussed and reviewed the chart. The patient slept 8-1/2 hours previous night. Average sleep 6 hours. Appetite 65%. Patient may have UTI. UA is being checked. He was irritable in the morning, attending groups. Social service staff is actively working at placement options for [facility], [facility] I met with him in the dayroom. Review of Systems: Impaired ambulation, in wheelchair. Hard of hearing. No CV, , pulmonary, eye system symptoms on review. He has some pain in his chest area where he has fractured ribs from his recent fall. Mental Status Exam: The patient is oriented reasonably. Speech has some latency, coherent. Abstraction fair. Computation impaired. Language function intact. Mood and affect somewhat anxious, irritable. No suicidal or homicidal ideation. Laboratory Data: Reviewed. 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 Anxiety disorder unspecified. Impulse control disorder unspecified. Plan: Continue to adjust his psychotropics as clinically indicated. Once placement is arranged he is ready to transfer. Assessment: Vital Signs/I&O: Vital Signs Date Time Temp Pulse Resp B/P (MAP) Pulse Ox O2 Delivery O2 Flow Rate FiO2 07/01/21 06:02 98.2 69 18 171/74 (106) 95 06/30/21 06:16 Room Air I & O 06/30/21 06/30/21 07/01/21 15:00 23:00 07:00 Intake Total 240 ml Balance 240 ml Current Medications: I have reviewed the current psychotropics carefully including drug interactions. Risk benefit ratio favors no change other than as noted in my dictated progress note. Diagnosis: Problems: (1) Impulse control disorder, unspecified (2) Anxiety disorder, unspecified (3) Dementia, vascular, with depression (4) Dementia, vascular, with delusions (5) Dementia in Alzheimer's disease with depression (6) Dementia in Alzheimer's disease with delusions (7) Dementia of the Alzheimer's type with early onset with behavioral disturbance (8) Major neurocognitive disorder (9) Major depressive disorder, recurrent episode (10) Mild cognitive impairment MICHAEL MCKEON MD Jul 01, 2021 10:06
--- NOTE | 2021-07-01 10:18 | PDOC ---
Exam Note: Daren Note: This note is a late entry for 06/30/2021 covers elements not covered in my initial note. Subjective: The patient was seen individually on 06/30/2021, discussed and reviewed the chart with Droa MATIAS. The patient slept 7-1/4 hours previous night. He is doing better. He slept into breakfast time, somewhat more smiling and animated. He is using call button appropriately in the rest room. Urine culture is awaited. Review of Systems: Impaired ambulation, in wheelchair. No CV, , pulmonary, eye system symptoms on review. Mental Status Exam: The patient is oriented reasonably. Speech has some latency, coherent. Abstraction fair. Computation impaired. Language function intact. Mood and affect somewhat anxious, irritable. No suicidal or homicidal ideation. Laboratory Data: Reviewed. 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 Anxiety disorder unspecified. Impulse control disorder unspecified. Status post rib fracture. Plan: Continue to adjust his psychotropics as clinically indicated. Awaiting placement being pursued actively by social service staff. Assessment: Vital Signs/I&O: Vital Signs Date Time Temp Pulse Resp B/P (MAP) Pulse Ox O2 Delivery O2 Flow Rate FiO2 07/01/21 06:02 98.2 69 18 171/74 (106) 95 06/30/21 06:16 Room Air I & O 06/30/21 06/30/21 07/01/21 14:59 22:59 06:59 Intake Total 240 ml Balance 240 ml Current Medications: I have reviewed the current psychotropics carefully including drug interactions. Risk benefit ratio favors no change other than as noted in my dictated progress note. Diagnosis: Problems: (1) Impulse control disorder, unspecified (2) Anxiety disorder, unspecified (3) Dementia, vascular, with depression (4) Dementia, vascular, with delusions (5) Dementia in Alzheimer's disease with depression (6) Dementia in Alzheimer's disease with delusions (7) Dementia of the Alzheimer's type with early onset with behavioral disturbance (8) Major neurocognitive disorder (9) Major depressive disorder, recurrent episode (10) Mild cognitive impairment MICHAEL MCKEON MD Jul 01, 2021 10:18
[2021-07-01 15:28] VITALS: BP 124/68
[2021-07-01] MEDS: ATORVASTATIN CALCIUM 10 MG TABLET. PO SCH (20:31)
--- NOTE | 2021-07-01 21:55 | PDOC ---
Exam Note: Daren Note: Please also refer to the separate dictated note~for this date of service dictated separately.~Patient seen individually. Discussed the patient with Nursing staff reviewed the chart.~Reviewed interim history and current functioning. Reviewed vital signs,~Labs/ Radiology~and current medications noted below. Continue current treatment with the changes noted in the dictated addendum note Assessment: Vital Signs/I&O: Vital Signs Date Time Temp Pulse Resp B/P (MAP) Pulse Ox O2 Delivery O2 Flow Rate FiO2 07/01/21 15:28 98.1 87 18 124/68 (86) 97 06/30/21 06:16 Room Air I & O 06/30/21 06/30/21 07/01/21 15:00 23:00 07:00 Intake Total 240 ml Balance 240 ml Current Medications: Meds: Current Medications Medications (Trade) Dose Ordered Sig/Daisy Route PRN Reason Start Time Stop Time Status Last Admin Dose Admin Acetaminophen (Tylenol) 650 mg PRN Q6HRS PRN PO MILD PAIN / TEMP > 100.3'F 05/11/21 16:15 06/26/21 04:07 Multi-Ingredient Ointment (Analgesic [place]) 1 eva PRN QID PRN TP MUSCLE PAIN 05/11/21 16:15 Al Hydroxide/Mg Hydroxide (Mylanta Plus Xs) 15 ml PRN AFTMEALHC PRN PO DYSPEPSIA 05/11/21 16:15 Magnesium Hydroxide (Milk Of Magnesia) 2,400 mg PRN QHS PRN PO CONSTIPATION 05/11/21 16:15 06/28/21 21:17 Nicotine (Nicoderm Cq 14mg Patch) 1 patch DAILY TD 05/12/21 09:00 05/30/21 17:27 DC 05/29/21 08:46 Ascorbic Acid (Vitamin C) 500 mg DAILY PO 05/12/21 09:00 07/01/21 08:44 Aspirin (Aspirin Chewable) 81 mg DAILY PO 05/12/21 09:00 07/01/21 08:43 Nicotine (Nicoderm Cq 14mg Patch) 1 patch DAILY TD 05/12/21 09:00 UNV Potassium Chloride (Klor-Con) 40 meq DAILY PO 05/12/21 09:00 07/01/21 08:44 Sennosides (Senna) 8.6 mg DAILY PO 05/12/21 09:00 07/01/21 08:44 Sertraline HCl (Zoloft) 125 mg DAILY PO 05/12/21 09:00 05/18/21 18:20 DC 05/18/21 08:59 Vitamin D (Vitamin D3) 1,000 unit DAILY PO 05/12/21 09:00 07/01/21 08:43 Cyanocobalamin (Vitamin B-12) 1,000 mcg [id number] PO 05/12/21 09:00 06/09/21 08:29 Polyethylene Glycol (miraLAX) 17 gm DAILY PO 05/12/21 09:00 07/01/21 08:42 Atorvastatin Calcium (Lipitor) 10 mg QHS PO 05/12/21 21:00 07/01/21 20:31 Quetiapine Fumarate (SEROquel) 25 mg PRN BID PRN PO AGITATION 05/12/21 07:15 05/19/21 19:14 DC 05/19/21 09:35 Divalproex Sodium (Depakote Sprinkles) 125 mg [id number] PO 05/12/21 09:00 05/12/21 16:01 DC 05/12/21 08:19 Ipratropium [place] (Atrovent Nasal) 1 spray BID NS 05/12/21 09:00 07/01/21 20:32 Divalproex Sodium (Depakote Sprinkles) 250 mg [id number] PO 05/12/21 16:00 05/16/21 18:09 DC 05/16/21 15:00 Cefdinir (Omnicef) 300 mg BID PO 05/14/21 21:00 05/20/21 22:00 DC 05/20/21 21:00 Lactobacillus Rhamnosus (Culturelle) 1 cap BID PO 05/14/21 21:00 07/01/21 20:31 Carbidopa/Levodopa (Sinemet 25/100) 1 tab TID PO 05/15/21 21:00 07/01/21 20:31 Divalproex Sodium (Depakote Sprinkles) 375 mg [id number] PO 05/17/21 09:00 05/27/21 19:14 DC 05/27/21 14:52 Sertraline HCl (Zoloft) 150 mg DAILY PO 05/19/21 09:00 06/01/21 11:53 DC 06/01/21 09:01 Quetiapine Fumarate (SEROquel) 25 mg 0900,1700 PO 05/20/21 09:00 05/23/21 18:17 DC 05/23/21 17:00 Olanzapine (ZyPREXA ZYDIS) 2.5 mg PRN Q2HR PRN PO PSYCHOSIS 05/20/21 10:00 06/29/21 15:19 Quetiapine Fumarate (SEROquel) 25 mg 0900,1300,1700 PO 05/24/21 09:00 05/25/21 11:57 DC 05/25/21 09:00 Quetiapine Fumarate (SEROquel) 25 mg 0900,1200,1500,1800 PO 05/25/21 12:00 07/01/21 17:17 Divalproex Sodium (Depakote Sprinkles) 500 mg BID94 PO 05/28/21 09:00 06/07/21 17:03 DC 06/07/21 08:54 Nicotine (Nicoderm Cq 7mg Patch) 1 patch DAILY TD 05/31/21 09:00 07/01/21 08:43 Sertraline HCl (Zoloft) 175 mg DAILY PO 06/02/21 09:00 07/01/21 21:36 DC 07/01/21 08:43 Divalproex Sodium (Depakote Sprinkles) 250 mg BID94 PO 06/08/21 09:00 06/07/21 17:07 DC Divalproex Sodium (Depakote Sprinkles) 250 mg BID94 PO 06/07/21 17:15 07/01/21 17:17 Artificial Tears (Artificial Tears) 1 drop PRN Q4HRS PRN OS DRY EYE 06/11/21 16:00 06/11/21 18:00 Acetaminophen/ Hydrocodone Bitart (Lortab 5/325) 1 tab PRN Q4HRS PRN PO MODERATE PAIN 4-6 06/26/21 06:00 06/28/21 21:19 Sertraline HCl (Zoloft) 200 mg DAILY PO 07/02/21 09:00 I have reviewed the current psychotropics carefully including drug interactions. Risk benefit ratio favors no change other than as noted in my dictated progress note. Diagnosis: Problems: (1) Impulse control disorder, unspecified (2) Anxiety disorder, unspecified (3) Dementia, vascular, with depression (4) Dementia, vascular, with delusions (5) Dementia in Alzheimer's disease with depression (6) Dementia in Alzheimer's disease with delusions (7) Dementia of the Alzheimer's type with early onset with behavioral disturbance (8) Major neurocognitive disorder (9) Major depressive disorder, recurrent episode MICHAEL MCKEON MD Jul 01, 2021 21:55
[2021-07-02 06:08] VITALS: BP 138/74
[2021-07-02] MEDS: POTASSIUM CHLORIDE 20 MEQ TABLET.ER. PO SCH (08:28)
[2021-07-02] MEDS: ASCORBIC ACID 500 MG TABLET PO SCH (08:28)
[2021-07-02] MEDS: LACTOBACILLUS RHAMNOSUS GG 1 CAPSULE. PO SCH ×2 (08:28→20:14)
[2021-07-02] MEDS: CHOLECALCIFEROL (VITAMIN D3) 1,000 UNIT TABLET PO SCH (08:28)
[2021-07-02] MEDS: NICOTINE 7MG PATCH. TD SCH (08:28)
[2021-07-02] MEDS: CARBIDOPA/LEVODOPA 25/100MG TABLET PO SCH ×3 (08:29→20:14)
[2021-07-02] MEDS: DIVALPROEX 125 MG CAP.SPRINK PO SCH ×2 (08:29→17:14)
[2021-07-02] MEDS: SENNOSIDES 8.6 MG TABLET PO SCH (08:29)
[2021-07-02] MEDS: ASPIRIN CHEWABLE 81 MG TABLET. PO SCH (08:29)
[2021-07-02] MEDS: IPRATROPIUM BROMIDE 0.06% NASAL SPRAY 15ML BOTTLE NS SCH ×2 (08:30→20:13)
[2021-07-02] MEDS: POLYETHYLENE GLYCOL 3350 17 GM PACKET. PO SCH (08:31)
[2021-07-02] MEDS: QUEtiapine 25 MG TABLET. PO SCH ×4 (08:31→17:14)
[2021-07-02] MEDS ORDERED: SERTRALINE 50 MG TABLET. PO SCH (09:00)
[2021-07-02 15:46] VITALS: BP 120/75
[2021-07-02] MEDS: ATORVASTATIN CALCIUM 10 MG TABLET. PO SCH (20:14)
--- NOTE | 2021-07-02 21:54 | PDOC ---
Exam Note: Daren Note: Please also refer to the separate dictated note~for this date of service dictated separately.~Patient seen individually. Discussed the patient with Nursing staff reviewed the chart.~Reviewed interim history and current functioning. Reviewed vital signs,~Labs/ Radiology~and current medications noted below. Continue current treatment with the changes noted in the dictated addendum note Assessment: Vital Signs/I&O: Vital Signs Date Time Temp Pulse Resp B/P (MAP) Pulse Ox O2 Delivery O2 Flow Rate FiO2 07/02/21 15:46 97.6 75 18 120/75 (90) 94 06/30/21 06:16 Room Air I & O 07/01/21 07/01/21 07/02/21 14:59 22:59 06:59 Intake Total 500 ml 180 ml Balance 500 ml 180 ml Current Medications: Meds: Current Medications Medications (Trade) Dose Ordered Sig/Daisy Route PRN Reason Start Time Stop Time Status Last Admin Dose Admin Acetaminophen (Tylenol) 650 mg PRN Q6HRS PRN PO MILD PAIN / TEMP > 100.3'F 05/11/21 16:15 06/26/21 04:07 Multi-Ingredient Ointment (Analgesic [place]) 1 eva PRN QID PRN TP MUSCLE PAIN 05/11/21 16:15 Al Hydroxide/Mg Hydroxide (Mylanta Plus Xs) 15 ml PRN AFTMEALHC PRN PO DYSPEPSIA 05/11/21 16:15 Magnesium Hydroxide (Milk Of Magnesia) 2,400 mg PRN QHS PRN PO CONSTIPATION 05/11/21 16:15 06/28/21 21:17 Nicotine (Nicoderm Cq 14mg Patch) 1 patch DAILY TD 05/12/21 09:00 05/30/21 17:27 DC 05/29/21 08:46 Ascorbic Acid (Vitamin C) 500 mg DAILY PO 05/12/21 09:00 07/02/21 08:28 Aspirin (Aspirin Chewable) 81 mg DAILY PO 05/12/21 09:00 07/02/21 08:29 Nicotine (Nicoderm Cq 14mg Patch) 1 patch DAILY TD 05/12/21 09:00 UNV Potassium Chloride (Klor-Con) 40 meq DAILY PO 05/12/21 09:00 07/02/21 08:28 Sennosides (Senna) 8.6 mg DAILY PO 05/12/21 09:00 07/02/21 08:29 Sertraline HCl (Zoloft) 125 mg DAILY PO 05/12/21 09:00 05/18/21 18:20 DC 05/18/21 08:59 Vitamin D (Vitamin D3) 1,000 unit DAILY PO 05/12/21 09:00 07/02/21 08:28 Cyanocobalamin (Vitamin B-12) 1,000 mcg [id number] PO 05/12/21 09:00 06/09/21 08:29 Polyethylene Glycol (miraLAX) 17 gm DAILY PO 05/12/21 09:00 07/02/21 08:31 Atorvastatin Calcium (Lipitor) 10 mg QHS PO 05/12/21 21:00 07/02/21 20:14 Quetiapine Fumarate (SEROquel) 25 mg PRN BID PRN PO AGITATION 05/12/21 07:15 05/19/21 19:14 DC 05/19/21 09:35 Divalproex Sodium (Depakote Sprinkles) 125 mg [id number] PO 05/12/21 09:00 05/12/21 16:01 DC 05/12/21 08:19 Ipratropium [place] (Atrovent Nasal) 1 spray BID NS 05/12/21 09:00 07/02/21 20:13 Divalproex Sodium (Depakote Sprinkles) 250 mg [id number] PO 05/12/21 16:00 05/16/21 18:09 DC 05/16/21 15:00 Cefdinir (Omnicef) 300 mg BID PO 05/14/21 21:00 05/20/21 22:00 DC 05/20/21 21:00 Lactobacillus Rhamnosus (Culturelle) 1 cap BID PO 05/14/21 21:00 07/02/21 20:14 Carbidopa/Levodopa (Sinemet 25/100) 1 tab TID PO 05/15/21 21:00 07/02/21 20:14 Divalproex Sodium (Depakote Sprinkles) 375 mg [id number] PO 05/17/21 09:00 05/27/21 19:14 DC 05/27/21 14:52 Sertraline HCl (Zoloft) 150 mg DAILY PO 05/19/21 09:00 06/01/21 11:53 DC 06/01/21 09:01 Quetiapine Fumarate (SEROquel) 25 mg 0900,1700 PO 05/20/21 09:00 05/23/21 18:17 DC 05/23/21 17:00 Olanzapine (ZyPREXA ZYDIS) 2.5 mg PRN Q2HR PRN PO PSYCHOSIS 05/20/21 10:00 06/29/21 15:19 Quetiapine Fumarate (SEROquel) 25 mg 0900,1300,1700 PO 05/24/21 09:00 05/25/21 11:57 DC 05/25/21 09:00 Quetiapine Fumarate (SEROquel) 25 mg 0900,1200,1500,1800 PO 05/25/21 12:00 07/02/21 17:14 Divalproex Sodium (Depakote Sprinkles) 500 mg BID94 PO 05/28/21 09:00 06/07/21 17:03 DC 06/07/21 08:54 Nicotine (Nicoderm Cq 7mg Patch) 1 patch DAILY TD 05/31/21 09:00 07/02/21 08:28 Sertraline HCl (Zoloft) 175 mg DAILY PO 06/02/21 09:00 07/01/21 21:36 DC 07/01/21 08:43 Divalproex Sodium (Depakote Sprinkles) 250 mg BID94 PO 06/08/21 09:00 06/07/21 17:07 DC Divalproex Sodium (Depakote Sprinkles) 250 mg BID94 PO 06/07/21 17:15 07/02/21 17:14 Artificial Tears (Artificial Tears) 1 drop PRN Q4HRS PRN OS DRY EYE 06/11/21 16:00 06/11/21 18:00 Acetaminophen/ Hydrocodone Bitart (Lortab 5/325) 1 tab PRN Q4HRS PRN PO MODERATE PAIN 4-6 06/26/21 06:00 06/28/21 21:19 Sertraline HCl (Zoloft) 200 mg DAILY PO 07/02/21 09:00 07/02/21 12:46 DC 07/02/21 08:28 Sertraline HCl (Zoloft) 200 mg DAILY PO 07/03/21 09:00 Current Medications Medications (Trade) Dose Ordered Sig/Daisy Route PRN Reason Start Time Stop Time Status Last Admin Dose Admin Sertraline HCl (Zoloft) 200 mg DAILY PO 07/02/21 09:00 07/02/21 12:46 DC 07/02/21 08:28 I have reviewed the current psychotropics carefully including drug interactions. Risk benefit ratio favors no change other than as noted in my dictated progress note. Diagnosis: Problems: (1) Impulse control disorder, unspecified (2) Anxiety disorder, unspecified (3) Dementia, vascular, with depression (4) Dementia, vascular, with delusions (5) Dementia in Alzheimer's disease with depression (6) Dementia in Alzheimer's disease with delusions (7) Dementia of the Alzheimer's type with early onset with behavioral di sturbance (8) Major neurocognitive disorder (9) Major depressive disorder, recurrent episode (10) Mild cognitive impairment MICHAEL MCKEON MD Jul 02, 2021 21:53
[2021-07-03 06:26] VITALS: BP 126/74
[2021-07-03] MEDS: LACTOBACILLUS RHAMNOSUS GG 1 CAPSULE. PO SCH ×2 (09:00→20:11)
[2021-07-03] MEDS: CHOLECALCIFEROL (VITAMIN D3) 1,000 UNIT TABLET PO SCH (09:00)
[2021-07-03] MEDS: POLYETHYLENE GLYCOL 3350 17 GM PACKET. PO SCH (09:00)
[2021-07-03] MEDS: SERTRALINE 100 MG TABLET. PO SCH (09:00)
[2021-07-03] MEDS: CARBIDOPA/LEVODOPA 25/100MG TABLET PO SCH ×3 (09:00→20:11)
[2021-07-03] MEDS: DIVALPROEX 125 MG CAP.SPRINK PO SCH ×2 (09:00→17:07)
[2021-07-03] MEDS: SENNOSIDES 8.6 MG TABLET PO SCH (09:00)
[2021-07-03] MEDS: POTASSIUM CHLORIDE 20 MEQ TABLET.ER. PO SCH (09:00)
[2021-07-03] MEDS: ASPIRIN CHEWABLE 81 MG TABLET. PO SCH (09:00)
[2021-07-03] MEDS: QUEtiapine 25 MG TABLET. PO SCH ×4 (09:00→17:08)
[2021-07-03] MEDS: IPRATROPIUM BROMIDE 0.06% NASAL SPRAY 15ML BOTTLE NS SCH ×2 (09:00→20:11)
[2021-07-03] MEDS: ASCORBIC ACID 500 MG TABLET PO SCH (09:00)
[2021-07-03] MEDS: NICOTINE 7MG PATCH. TD SCH (10:28)
[2021-07-03] MEDS: levoFLOXacin 500 MG TABLET PO SCH (10:29)
[2021-07-03 15:54] VITALS: BP 124/69
[2021-07-03] MEDS: ATORVASTATIN CALCIUM 10 MG TABLET. PO SCH (20:11)
--- NOTE | 2021-07-03 21:53 | PDOC ---
Exam Note: Daren Note: Please also refer to the separate dictated note~for this date of service dictated separately.~Patient seen individually. Discussed the patient with Nursing staff reviewed the chart.~Reviewed interim history and current functioning. Reviewed vital signs,~Labs/ Radiology~and current medications noted below. Continue current treatment with the changes noted in the dictated addendum note Assessment: Vital Signs/I&O: Vital Signs Date Time Temp Pulse Resp B/P (MAP) Pulse Ox O2 Delivery O2 Flow Rate FiO2 07/03/21 15:54 98.8 87 18 124/69 (87) 96 Room Air I & O 07/02/21 07/02/21 07/03/21 14:59 22:59 06:59 Intake Total 480 ml 840 ml Balance 480 ml 840 ml Current Medications: Meds: Current Medications Medications (Trade) Dose Ordered Sig/Daisy Route PRN Reason Start Time Stop Time Status Last Admin Dose Admin Acetaminophen (Tylenol) 650 mg PRN Q6HRS PRN PO MILD PAIN / TEMP > 100.3'F 05/11/21 16:15 06/26/21 04:07 Multi-Ingredient Ointment (Analgesic [place]) 1 eva PRN QID PRN TP MUSCLE PAIN 05/11/21 16:15 Al Hydroxide/Mg Hydroxide (Mylanta Plus Xs) 15 ml PRN AFTMEALHC PRN PO DYSPEPSIA 05/11/21 16:15 Magnesium Hydroxide (Milk Of Magnesia) 2,400 mg PRN QHS PRN PO CONSTIPATION 05/11/21 16:15 06/28/21 21:17 Nicotine (Nicoderm Cq 14mg Patch) 1 patch DAILY TD 05/12/21 09:00 05/30/21 17:27 DC 05/29/21 08:46 Ascorbic Acid (Vitamin C) 500 mg DAILY PO 05/12/21 09:00 07/03/21 09:00 Aspirin (Aspirin Chewable) 81 mg DAILY PO 05/12/21 09:00 07/03/21 09:00 Nicotine (Nicoderm Cq 14mg Patch) 1 patch DAILY TD 05/12/21 09:00 UNV Potassium Chloride (Klor-Con) 40 meq DAILY PO 05/12/21 09:00 07/03/21 09:00 Sennosides (Senna) 8.6 mg DAILY PO 05/12/21 09:00 07/03/21 09:00 Sertraline HCl (Zoloft) 125 mg DAILY PO 05/12/21 09:00 05/18/21 18:20 DC 05/18/21 08:59 Vitamin D (Vitamin D3) 1,000 unit DAILY PO 05/12/21 09:00 07/03/21 09:00 Cyanocobalamin (Vitamin B-12) 1,000 mcg [id number] PO 05/12/21 09:00 06/09/21 08:29 Polyethylene Glycol (miraLAX) 17 gm DAILY PO 05/12/21 09:00 07/03/21 09:00 Atorvastatin Calcium (Lipitor) 10 mg QHS PO 05/12/21 21:00 07/03/21 20:11 Quetiapine Fumarate (SEROquel) 25 mg PRN BID PRN PO AGITATION 05/12/21 07:15 05/19/21 19:14 DC 05/19/21 09:35 Divalproex Sodium (Depakote Sprinkles) 125 mg [id number] PO 05/12/21 09:00 05/12/21 16:01 DC 05/12/21 08:19 Ipratropium [place] (Atrovent Nasal) 1 spray BID NS 05/12/21 09:00 07/03/21 20:11 Divalproex Sodium (Depakote Sprinkles) 250 mg [id number] PO 05/12/21 16:00 05/16/21 18:09 DC 05/16/21 15:00 Cefdinir (Omnicef) 300 mg BID PO 05/14/21 21:00 05/20/21 22:00 DC 05/20/21 21:00 Lactobacillus Rhamnosus (Culturelle) 1 cap BID PO 05/14/21 21:00 07/03/21 20:11 Carbidopa/Levodopa (Sinemet 25/100) 1 tab TID PO 05/15/21 21:00 07/03/21 20:11 Divalproex Sodium (Depakote Sprinkles) 375 mg BID94 PO 05/17/21 09:00 05/27/21 19:14 DC 05/27/21 14:52 Sertraline HCl (Zoloft) 150 mg DAILY PO 05/19/21 09:00 06/01/21 11:53 DC 06/01/21 09:01 Quetiapine Fumarate (SEROquel) 25 mg 0900,1700 PO 05/20/21 09:00 05/23/21 18:17 DC 05/23/21 17:00 Olanzapine (ZyPREXA ZYDIS) 2.5 mg PRN Q2HR PRN PO PSYCHOSIS 05/20/21 10:00 06/29/21 15:19 Quetiapine Fumarate (SEROquel) 25 mg 0900,1300,1700 PO 05/24/21 09:00 05/25/21 11:57 DC 05/25/21 09:00 Quetiapine Fumarate (SEROquel) 25 mg 0900,1200,1500,1800 PO 05/25/21 12:00 07/03/21 17:08 Divalproex Sodium (Depakote Sprinkles) 500 mg BID94 PO 05/28/21 09:00 06/07/21 17:03 DC 06/07/21 08:54 Nicotine (Nicoderm Cq 7mg Patch) 1 patch DAILY TD 05/31/21 09:00 07/03/21 10:28 Sertraline HCl (Zoloft) 175 mg DAILY PO 06/02/21 09:00 07/01/21 21:36 DC 07/01/21 08:43 Divalproex Sodium (Depakote Sprinkles) 250 mg BID94 PO 06/08/21 09:00 06/07/21 17:07 DC Divalproex Sodium (Depakote Sprinkles) 250 mg BID94 PO 06/07/21 17:15 07/03/21 17:07 Artificial Tears (Artificial Tears) 1 drop PRN Q4HRS PRN OS DRY EYE 06/11/21 16:00 06/11/21 18:00 Acetaminophen/ Hydrocodone Bitart (Lortab 5/325) 1 tab PRN Q4HRS PRN PO MODERATE PAIN 4-6 06/26/21 06:00 06/28/21 21:19 Sertraline HCl (Zoloft) 200 mg DAILY PO 07/02/21 09:00 07/02/21 12:46 DC 07/02/21 08:28 Sertraline HCl (Zoloft) 200 mg DAILY PO 07/03/21 09:00 07/03/21 09:00 Levofloxacin (Levaquin) 500 mg DAILY06 PO 07/03/21 09:15 07/07/21 10:00 07/03/21 10:29 Current Medications Medications (Trade) Dose Ordered Sig/Daisy Route PRN Reason Start Time Stop Time Status Last Admin Dose Admin Sertraline HCl (Zoloft) 200 mg DAILY PO 07/03/21 09:00 07/03/21 09:00 Levofloxacin (Levaquin) 500 mg DAILY06 PO 07/03/21 09:15 07/07/21 10:00 07/03/21 10:29 I have reviewed the current psychotropics carefully including drug interactions. Risk benefit ratio favors no change other than as noted in my dictated progress note. Diagnosis: Problems: (1) Impulse control disorder, unspecified (2) Major depressive disorder, severe (3) Anxiety disorder, unspecified (4) Dementia, vascular, with depression (5) Dementia, vascular, with delusions (6) Dementia in Alzheimer's disease with depression (7) Dementia in Alzheimer's disease with delusions (8) Dementia of the Alzheimer's type with early onset with behavioral disturbance (9) Major neurocognitive disorder (10) Major depressive disorder, recurrent episode (11) Mild cognitive impairment MICHAEL MCKEON MD Jul 03, 2021 21:53
[2021-07-04] MEDS: levoFLOXacin 500 MG TABLET PO SCH (05:12)
[2021-07-04 05:57] VITALS: BP 143/79
[2021-07-04] MEDS: ASCORBIC ACID 500 MG TABLET PO SCH (07:56)
[2021-07-04] MEDS: NICOTINE 7MG PATCH. TD SCH (07:56)
[2021-07-04] MEDS: POLYETHYLENE GLYCOL 3350 17 GM PACKET. PO SCH (07:56)
[2021-07-04] MEDS: CARBIDOPA/LEVODOPA 25/100MG TABLET PO SCH ×3 (07:57→20:19)
[2021-07-04] MEDS: ASPIRIN CHEWABLE 81 MG TABLET. PO SCH (07:57)
[2021-07-04] MEDS: SERTRALINE 100 MG TABLET. PO SCH (07:57)
[2021-07-04] MEDS: SENNOSIDES 8.6 MG TABLET PO SCH (07:57)
[2021-07-04] MEDS: CHOLECALCIFEROL (VITAMIN D3) 1,000 UNIT TABLET PO SCH (07:57)
[2021-07-04] MEDS: POTASSIUM CHLORIDE 20 MEQ TABLET.ER. PO SCH (07:57)
[2021-07-04] MEDS: DIVALPROEX 125 MG CAP.SPRINK PO SCH ×2 (07:57→16:20)
[2021-07-04] MEDS: LACTOBACILLUS RHAMNOSUS GG 1 CAPSULE. PO SCH ×2 (07:58→20:19)
[2021-07-04] MEDS: QUEtiapine 25 MG TABLET. PO SCH ×4 (07:58→16:54)
[2021-07-04] MEDS: IPRATROPIUM BROMIDE 0.06% NASAL SPRAY 15ML BOTTLE NS SCH ×2 (07:58→20:19)
--- NOTE | 2021-07-04 09:05 | PDOC ---
Exam Note: Daren Note: This note is a late entry for 07/01/2021 covers elements not covered in my initial note. Subjective: The patient was seen individually on 07/01/2021, discussed and reviewed the chart with Jenifer MATIAS. The patient slept 8 hours previous night. He met with him in his room. He was upset at breakfast time, put himself on the floor. No further injuries. UA show E. coli greater than 100,000. He is still somewhat dysphoric in his mood, anxious, restless. Review of Systems: Positive for some chest discomfort. He had fractured ribs from a fall. Impaired ambulation, in wheelchair. No CV, , pulmonary, eye system symptoms on review. Mental Status Exam: The patient is oriented reasonably. I met with him in his room. Speech has some latency, coherent. Abstraction fair. Computation impaired. Language function intact. Mood and affect somewhat anxious. No suicidal or homicidal ideation. Laboratory Data: Reviewed. 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 Anxiety disorder unspecified. Impulse control disorder unspecified. Status post rib fracture. Plan: Continue to adjust his psychotropics as clinically indicated. Increase Zoloft from 175 mg a day to 200 mg a day for his mood/anxiety symptoms. Continue Seroquel unchanged, Zyprexa p.r.n. He remains on Sinemet for his Parkinsons. Reviewed drug interactions, risk-benefit ratio which favors no further change today but we will continue to assess this. Assessment: Vital Signs/I&O: Vital Signs Date Time Temp Pulse Resp B/P (MAP) Pulse Ox O2 Delivery O2 Flow Rate FiO2 07/04/21 05:57 97.9 127 16 143/79 (100) 92 07/03/21 15:54 Room Air I & O 07/03/21 07/03/21 07/04/21 15:00 23:00 07:00 Intake Total 960 ml 840 ml Balance 960 ml 840 ml Current Medications: Meds: Current Medications Medications (Trade) Dose Ordered Sig/Daisy Route PRN Reason Start Time Stop Time Status Last Admin Dose Admin Levofloxacin (Levaquin) 500 mg DAILY06 PO 07/03/21 09:15 07/07/21 10:00 07/04/21 05:12 I have reviewed the current psychotropics carefully including drug interactions. Risk benefit ratio favors no change other than as noted in my dictated progress note. Diagnosis: Problems: (1) Impulse control disorder, unspecified (2) Anxiety disorder, unspecified (3) Dementia, vascular, with depression (4) Dementia, vascular, with delusions (5) Dementia in Alzheimer's disease with depression (6) Dementia in Alzheimer's disease with delusions (7) Dementia of the Alzheimer's type with early onset with behavioral disturbance (8) Major neurocognitive disorder (9) Major depressive disorder, recurrent episode (10) Mild cognitive impairment MICHAEL MCKEON MD Jul 04, 2021 09:05
--- NOTE | 2021-07-04 09:24 | PDOC ---
Exam Note: Daren Note: This note is a late entry for 07/02/2021 covers elements not covered in my initial note. Subjective: The patient was seen individually on 07/02/2021, discussed and reviewed the chart with Vivian MATIAS. The patient slept 8-3/4 hours previous night. He has been somewhat agitated, disorganized, spending much time in bed. He was having sandwich for supper as I met with him in his room. UA show E. coli positive. We will defer to Dr. Aparicio. He was found on the floor in the evening. No injuries noted. Review of Systems: Positive for some chest discomfort but less than before. Impaired ambulation, in wheelchair. No CV, , pulmonary, eye system symptoms on review. Mental Status Exam: The patient is oriented reasonably. Speech coherent. Abstraction fair. Computation impaired. Language function intact. Mood and affect somewhat anxious. No suicidal or homicidal ideation. Laboratory Data: Reviewed. 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 Anxiety disorder unspecified. Impulse control disorder unspecified. Status post rib fracture. Plan: Continue to adjust his psychotropics as clinically indicated. Reviewed drug interactions, risk-benefit ratio which favors no further change today but we will continue to assess this. Assessment: Vital Signs/I&O: Vital Signs Date Time Temp Pulse Resp B/P (MAP) Pulse Ox O2 Delivery O2 Flow Rate FiO2 07/04/21 05:57 97.9 127 16 143/79 (100) 92 07/03/21 15:54 Room Air I & O 07/03/21 07/03/21 07/04/21 15:00 23:00 07:00 Intake Total 960 ml 840 ml Balance 960 ml 840 ml Current Medications: I have reviewed the current psychotropics carefully including drug interactions. Risk benefit ratio favors no change other than as noted in my dictated progress note. Diagnosis: Problems: (1) Impulse control disorder, unspecified (2) Anxiety disorder, unspecified (3) Dementia, vascular, with depression (4) Dementia, vascular, with delusions (5) Dementia in Alzheimer's disease with depression (6) Dementia in Alzheimer's disease with delusions (7) Dementia of the Alzheimer's type with early onset with behavioral disturbance (8) Major neurocognitive disorder MICHAEL MCKEON MD Jul 04, 2021 09:24
[2021-07-04 15:45] VITALS: BP 123/70
[2021-07-04] MEDS: ATORVASTATIN CALCIUM 10 MG TABLET. PO SCH (20:19)
--- NOTE | 2021-07-04 21:48 | PDOC ---
Exam Note: Daren Note: Please also refer to the separate dictated note~for this date of service dictated separately.~Patient seen individually. Discussed the patient with Nursing staff reviewed the chart.~Reviewed interim history and current functioning. Reviewed vital signs,~Labs/ Radiology~and current medications noted below. Continue current treatment with the changes noted in the dictated addendum note Assessment: Vital Signs/I&O: Vital Signs Date Time Temp Pulse Resp B/P (MAP) Pulse Ox O2 Delivery O2 Flow Rate FiO2 07/04/21 15:45 98.8 83 20 123/70 (87) 95 Room Air I & O 07/03/21 07/03/21 07/04/21 15:00 23:00 07:00 Intake Total 960 ml 840 ml Balance 960 ml 840 ml Labs: Laboratory Tests Test 07/04/21 10:30 POC SARS CoV-2 Antigen Negative (NEGATIVE) Current Medications: Meds: Laboratory Tests Test 07/04/21 10:30 POC SARS CoV-2 Antigen Negative Current Medications Medications (Trade) Dose Ordered Sig/Daisy Route PRN Reason Start Time Stop Time Status Last Admin Dose Admin Acetaminophen (Tylenol) 650 mg PRN Q6HRS PRN PO MILD PAIN / TEMP > 100.3'F 05/11/21 16:15 06/26/21 04:07 Multi-Ingredient Ointment (Analgesic [place]) 1 eva PRN QID PRN TP MUSCLE PAIN 05/11/21 16:15 Al Hydroxide/Mg Hydroxide (Mylanta Plus Xs) 15 ml PRN AFTMEALHC PRN PO DYSPEPSIA 05/11/21 16:15 Magnesium Hydroxide (Milk Of Magnesia) 2,400 mg PRN QHS PRN PO CONSTIPATION 05/11/21 16:15 06/28/21 21:17 Nicotine (Nicoderm Cq 14mg Patch) 1 patch DAILY TD 05/12/21 09:00 05/30/21 17:27 DC 05/29/21 08:46 Ascorbic Acid (Vitamin C) 500 mg DAILY PO 05/12/21 09:00 07/04/21 07:56 Aspirin (Aspirin Chewable) 81 mg DAILY PO 05/12/21 09:00 07/04/21 07:57 Nicotine (Nicoderm Cq 14mg Patch) 1 patch DAILY TD 05/12/21 09:00 UNV Potassium Chloride (Klor-Con) 40 meq DAILY PO 05/12/21 09:00 07/04/21 07:57 Sennosides (Senna) 8.6 mg DAILY PO 05/12/21 09:00 07/04/21 07:57 Sertraline HCl (Zoloft) 125 mg DAILY PO 05/12/21 09:00 05/18/21 18:20 DC 05/18/21 08:59 Vitamin D (Vitamin D3) 1,000 unit DAILY PO 05/12/21 09:00 07/04/21 07:57 Cyanocobalamin (Vitamin B-12) 1,000 mcg [id number] PO 05/12/21 09:00 06/09/21 08:29 Polyethylene Glycol (miraLAX) 17 gm DAILY PO 05/12/21 09:00 07/04/21 07:56 Atorvastatin Calcium (Lipitor) 10 mg QHS PO 05/12/21 21:00 07/04/21 20:19 Quetiapine Fumarate (SEROquel) 25 mg PRN BID PRN PO AGITATION 05/12/21 07:15 05/19/21 19:14 DC 05/19/21 09:35 Divalproex Sodium (Depakote Sprinkles) 125 mg [id number] PO 05/12/21 09:00 05/12/21 16:01 DC 05/12/21 08:19 Ipratropium [place] (Atrovent Nasal) 1 spray BID NS 05/12/21 09:00 07/04/21 20:19 Divalproex Sodium (Depakote Sprinkles) 250 mg BID94 PO 05/12/21 16:00 05/16/21 18:09 DC 05/16/21 15:00 Cefdinir (Omnicef) 300 mg BID PO 05/14/21 21:00 05/20/21 22:00 DC 05/20/21 21:00 Lactobacillus Rhamnosus (Culturelle) 1 cap BID PO 05/14/21 21:00 07/04/21 20:19 Carbidopa/Levodopa (Sinemet 25/100) 1 tab TID PO 05/15/21 21:00 07/04/21 20:19 Divalproex Sodium (Depakote Sprinkles) 375 mg BID94 PO 05/17/21 09:00 05/27/21 19:14 DC 05/27/21 14:52 Sertraline HCl (Zoloft) 150 mg DAILY PO 05/19/21 09:00 06/01/21 11:53 DC 06/01/21 09:01 Quetiapine Fumarate (SEROquel) 25 mg 0900,1700 PO 05/20/21 09:00 05/23/21 18:17 DC 05/23/21 17:00 Olanzapine (ZyPREXA ZYDIS) 2.5 mg PRN Q2HR PRN PO PSYCHOSIS 05/20/21 10:00 06/29/21 15:19 Quetiapine Fumarate (SEROquel) 25 mg 0900,1300,1700 PO 05/24/21 09:00 05/25/21 11:57 DC 05/25/21 09:00 Quetiapine Fumarate (SEROquel) 25 mg 0900,1200,1500,1800 PO 05/25/21 12:00 07/04/21 16:54 Divalproex Sodium (Depakote Sprinkles) 500 mg BID94 PO 05/28/21 09:00 06/07/21 17:03 DC 06/07/21 08:54 Nicotine (Nicoderm Cq 7mg Patch) 1 patch DAILY TD 05/31/21 09:00 07/04/21 07:56 Sertraline HCl (Zoloft) 175 mg DAILY PO 06/02/21 09:00 07/01/21 21:36 DC 07/01/21 08:43 Divalproex Sodium (Depakote Sprinkles) 250 mg BID94 PO 06/08/21 09:00 06/07/21 17:07 DC Divalproex Sodium (Depakote Sprinkles) 250 mg BID94 PO 06/07/21 17:15 07/04/21 16:20 Artificial Tears (Artificial Tears) 1 drop PRN Q4HRS PRN OS DRY EYE 06/11/21 16:00 06/11/21 18:00 Acetaminophen/ Hydrocodone Bitart (Lortab 5/325) 1 tab PRN Q4HRS PRN PO MODERATE PAIN 4-6 06/26/21 06:00 06/28/21 21:19 Sertraline HCl (Zoloft) 200 mg DAILY PO 07/02/21 09:00 07/02/21 12:46 DC 07/02/21 08:28 Sertraline HCl (Zoloft) 200 mg DAILY PO 07/03/21 09:00 07/04/21 07:57 Levofloxacin (Levaquin) 500 mg DAILY06 PO 07/03/21 09:15 07/07/21 10:00 07/04/21 05:12 I have reviewed the current psychotropics carefully including drug interactions. Risk benefit ratio favors no change other than as noted in my dictated progress note. Diagnosis: Problems: (1) Impulse control disorder, unspecified (2) Anxiety disorder, unspecified (3) Dementia, vascular, with depression (4) Dementia, vascular, with delusions (5) Dementia in Alzheimer's disease with depression (6) Dementia in Alzheimer's disease with delusions (7) Dementia of the Alzheimer's type with early onset with behavioral disturbance (8) Major neurocognitive disorder (9) Major depressive disorder, recurrent episode MICHAEL MCKEON MD Jul 04, 2021 21:48
[2021-07-05] MEDS: levoFLOXacin 500 MG TABLET PO SCH (05:26)
[2021-07-05 06:25] VITALS: BP 147/77
[2021-07-05] MEDS: SERTRALINE 100 MG TABLET. PO SCH (08:07)
[2021-07-05] MEDS: DIVALPROEX 125 MG CAP.SPRINK PO SCH ×2 (08:07→16:38)
[2021-07-05] MEDS: QUEtiapine 25 MG TABLET. PO SCH ×4 (08:08→18:38)
[2021-07-05] MEDS: CARBIDOPA/LEVODOPA 25/100MG TABLET PO SCH ×3 (08:08→20:24)
[2021-07-05] MEDS: POTASSIUM CHLORIDE 20 MEQ TABLET.ER. PO SCH (08:08)
[2021-07-05] MEDS: SENNOSIDES 8.6 MG TABLET PO SCH (08:08)
[2021-07-05] MEDS: CHOLECALCIFEROL (VITAMIN D3) 1,000 UNIT TABLET PO SCH (08:08)
[2021-07-05] MEDS: ASCORBIC ACID 500 MG TABLET PO SCH (08:08)
[2021-07-05] MEDS: ASPIRIN CHEWABLE 81 MG TABLET. PO SCH (08:08)
[2021-07-05] MEDS: IPRATROPIUM BROMIDE 0.06% NASAL SPRAY 15ML BOTTLE NS SCH ×2 (08:09→20:24)
[2021-07-05] MEDS: NICOTINE 7MG PATCH. TD SCH (08:09)
[2021-07-05] MEDS: POLYETHYLENE GLYCOL 3350 17 GM PACKET. PO SCH (08:09)
[2021-07-05] MEDS: LACTOBACILLUS RHAMNOSUS GG 1 CAPSULE. PO SCH ×2 (08:09→20:24)
--- NOTE | 2021-07-05 09:34 | PDOC ---
Exam Note: Daren Note: This note is a late entry for 07/03/2021 covers elements not covered in my initial note. Subjective: The patient was seen individually on 07/03/2021, discussed and reviewed the chart with Karey MATIAS. The patient slept 7-1/4 hours previous night. He does have E. coli and was started on Levaquin her Dr. Aparicio. I met with him in his room. He was lying in bed, at times confused. He felt he was talking to his father but when I met with him he was reasonably oriented, somewhat agitated earlier in the dayroom. He has not had a fall today but had a fall last night with no further injuries. Review of Systems: Impaired ambulation, in wheelchair. No CV, , pulmonary, eye system symptoms on review. Mental Status Exam: The patient is oriented reasonably. Speech coherent. Abstraction fair. Computation impaired. Language function intact. Mood and affect somewhat anxious. No suicidal or homicidal ideation. Laboratory Data: Reviewed. 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 Anxiety disorder unspecified. Impulse control disorder unspecified. Status post rib fracture. Plan: Continue to adjust his psychotropics as clinically indicated. Reviewed drug interactions, risk-benefit ratio which favors no further change today but we will continue to assess this. Assessment: Vital Signs/I&O: Vital Signs Date Time Temp Pulse Resp B/P (MAP) Pulse Ox O2 Delivery O2 Flow Rate FiO2 07/05/21 06:25 98.0 68 16 147/77 (100) 94 07/04/21 15:45 Room Air I & O 07/04/21 07/04/21 07/05/21 15:00 23:00 07:00 Intake Total 560 ml 480 ml Balance 560 ml 480 ml Labs: Laboratory Tests Test 07/04/21 10:30 POC SARS CoV-2 Antigen Negative (NEGATIVE) Current Medications: I have reviewed the current psychotropics carefully including drug interactions. Risk benefit ratio favors no change other than as noted in my dictated progress note. Diagnosis: Problems: (1) Impulse control disorder, unspecified (2) Anxiety disorder, unspecified (3) Dementia, vascular, with depression (4) Dementia, vascular, with delusions (5) Dementia in Alzheimer's disease with depression (6) Dementia in Alzheimer's disease with delusions (7) Dementia of the Alzheimer's type with early onset with behavioral disturbance (8) Major neurocognitive disorder (9) Major depressive disorder, recurrent episode (10) Mild cognitive impairment MICHAEL MCKEON MD Jul 05, 2021 09:34
--- NOTE | 2021-07-05 09:54 | PDOC ---
Exam Note: Daren Note: This note is a late entry for 07/04/2021 covers elements not covered in my initial note. Subjective: The patient was seen individually on 07/04/2021, discussed and reviewed the chart with Sadia MATIAS. The patient slept 7-3/4 hours previous night. He has been withdrawn, disorganized, compliant with medications. He has not put himself on the floor today. Review of Systems: Ambulation impaired, in wheelchair. No CV, , pulmonary, eye system symptoms on review. He is lying in bed. Mental Status Exam: The patient is oriented reasonably. I met with him in his room. Speech coherent. Abstraction fair. Computation impaired. Language function intact. Mood and affect somewhat anxious. No suicidal or homicidal ideation. Laboratory Data: Reviewed. 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 Anxiety disorder unspecified. Impulse control disorder unspecified. Plan: Continue current psychotropics as clinically indicated. Social service staff is actively finding appropriate placement. Assessment: Vital Signs/I&O: Vital Signs Date Time Temp Pulse Resp B/P (MAP) Pulse Ox O2 Delivery O2 Flow Rate FiO2 07/05/21 06:25 98.0 68 16 147/77 (100) 94 07/04/21 15:45 Room Air I & O 07/04/21 07/04/21 07/05/21 15:00 23:00 07:00 Intake Total 560 ml 480 ml Balance 560 ml 480 ml Labs: Laboratory Tests Test 07/04/21 10:30 POC SARS CoV-2 Antigen Negative (NEGATIVE) Current Medications: I have reviewed the current psychotropics carefully including drug interactions. Risk benefit ratio favors no change other than as noted in my dictated progress note. Diagnosis: Problems: (1) Impulse control disorder, unspecified (2) Anxiety disorder, unspecified (3) Dementia, vascular, with depression (4) Dementia, vascular, with delusions (5) Dementia in Alzheimer's disease with depression (6) Dementia in Alzheimer's disease with delusions (7) Dementia of the Alzheimer's type with early onset with behavioral disturbance (8) Major neurocognitive disorder (9) Mild cognitive impairment MICHAEL MCKEON MD Jul 05, 2021 09:54
[2021-07-05 15:23] VITALS: BP 143/78
[2021-07-05] MEDS: ATORVASTATIN CALCIUM 10 MG TABLET. PO SCH (20:24)
--- NOTE | 2021-07-05 22:00 | PDOC ---
Exam Note: Daren Note: Please also refer to the separate dictated note~for this date of service dictated separately.~Patient seen individually. Discussed the patient with Nursing staff reviewed the chart.~Reviewed interim history and current functioning. Reviewed vital signs,~Labs/ Radiology~and current medications noted below. Continue current treatment with the changes noted in the dictated addendum note Assessment: Vital Signs/I&O: Vital Signs Date Time Temp Pulse Resp B/P (MAP) Pulse Ox O2 Delivery O2 Flow Rate FiO2 07/05/21 15:23 97.9 68 20 143/78 (99) 100 07/04/21 15:45 Room Air I & O 07/04/21 07/04/21 07/05/21 15:00 23:00 07:00 Intake Total 560 ml 480 ml Balance 560 ml 480 ml Current Medications: Meds: Current Medications Medications (Trade) Dose Ordered Sig/Daisy Route PRN Reason Start Time Stop Time Status Last Admin Dose Admin Acetaminophen (Tylenol) 650 mg PRN Q6HRS PRN PO MILD PAIN / TEMP > 100.3'F 05/11/21 16:15 06/26/21 04:07 Multi-Ingredient Ointment (Analgesic [place]) 1 eva PRN QID PRN TP MUSCLE PAIN 05/11/21 16:15 Al Hydroxide/Mg Hydroxide (Mylanta Plus Xs) 15 ml PRN AFTMEALHC PRN PO DYSPEPSIA 05/11/21 16:15 Magnesium Hydroxide (Milk Of Magnesia) 2,400 mg PRN QHS PRN PO CONSTIPATION 05/11/21 16:15 06/28/21 21:17 Nicotine (Nicoderm Cq 14mg Patch) 1 patch DAILY TD 05/12/21 09:00 05/30/21 17:27 DC 05/29/21 08:46 Ascorbic Acid (Vitamin C) 500 mg DAILY PO 05/12/21 09:00 07/05/21 08:08 Aspirin (Aspirin Chewable) 81 mg DAILY PO 05/12/21 09:00 07/05/21 08:08 Nicotine (Nicoderm Cq 14mg Patch) 1 patch DAILY TD 05/12/21 09:00 UNV Potassium Chloride (Klor-Con) 40 meq DAILY PO 05/12/21 09:00 07/05/21 08:08 Sennosides (Senna) 8.6 mg DAILY PO 05/12/21 09:00 07/05/21 08:08 Sertraline HCl (Zoloft) 125 mg DAILY PO 05/12/21 09:00 05/18/21 18:20 DC 05/18/21 08:59 Vitamin D (Vitamin D3) 1,000 unit DAILY PO 05/12/21 09:00 07/05/21 08:08 Cyanocobalamin (Vitamin B-12) 1,000 mcg [id number] PO 05/12/21 09:00 06/09/21 08:29 Polyethylene Glycol (miraLAX) 17 gm DAILY PO 05/12/21 09:00 07/05/21 08:09 Atorvastatin Calcium (Lipitor) 10 mg QHS PO 05/12/21 21:00 07/05/21 20:24 Quetiapine Fumarate (SEROquel) 25 mg PRN BID PRN PO AGITATION 05/12/21 07:15 05/19/21 19:14 DC 05/19/21 09:35 Divalproex Sodium (Depakote Sprinkles) 125 mg [id number] PO 05/12/21 09:00 05/12/21 16:01 DC 05/12/21 08:19 Ipratropium [place] (Atrovent Nasal) 1 spray BID NS 05/12/21 09:00 07/05/21 20:24 Divalproex Sodium (Depakote Sprinkles) 250 mg BID94 PO 05/12/21 16:00 05/16/21 18:09 DC 05/16/21 15:00 Cefdinir (Omnicef) 300 mg BID PO 05/14/21 21:00 05/20/21 22:00 DC 05/20/21 21:00 Lactobacillus Rhamnosus (Culturelle) 1 cap BID PO 05/14/21 21:00 07/05/21 20:24 Carbidopa/Levodopa (Sinemet 25/100) 1 tab TID PO 05/15/21 21:00 07/05/21 20:24 Divalproex Sodium (Depakote Sprinkles) 375 mg BID94 PO 05/17/21 09:00 05/27/21 19:14 DC 05/27/21 14:52 Sertraline HCl (Zoloft) 150 mg DAILY PO 05/19/21 09:00 06/01/21 11:53 DC 06/01/21 09:01 Quetiapine Fumarate (SEROquel) 25 mg 0900,1700 PO 05/20/21 09:00 05/23/21 18:17 DC 05/23/21 17:00 Olanzapine (ZyPREXA ZYDIS) 2.5 mg PRN Q2HR PRN PO PSYCHOSIS 05/20/21 10:00 06/29/21 15:19 Quetiapine Fumarate (SEROquel) 25 mg 0900,1300,1700 PO 05/24/21 09:00 05/25/21 11:57 DC 05/25/21 09:00 Quetiapine Fumarate (SEROquel) 25 mg 0900,1200,1500,1800 PO 05/25/21 12:00 07/05/21 18:38 Divalproex Sodium (Depakote Sprinkles) 500 mg BID94 PO 05/28/21 09:00 06/07/21 17:03 DC 06/07/21 08:54 Nicotine (Nicoderm Cq 7mg Patch) 1 patch DAILY TD 05/31/21 09:00 07/05/21 08:09 Sertraline HCl (Zoloft) 175 mg DAILY PO 06/02/21 09:00 07/01/21 21:36 DC 07/01/21 08:43 Divalproex Sodium (Depakote Sprinkles) 250 mg BID94 PO 06/08/21 09:00 06/07/21 17:07 DC Divalproex Sodium (Depakote Sprinkles) 250 mg BID94 PO 06/07/21 17:15 07/05/21 16:38 Artificial Tears (Artificial Tears) 1 drop PRN Q4HRS PRN OS DRY EYE 06/11/21 16:00 06/11/21 18:00 Acetaminophen/ Hydrocodone Bitart (Lortab 5/325) 1 tab PRN Q4HRS PRN PO MODERATE PAIN 4-6 06/26/21 06:00 06/28/21 21:19 Sertraline HCl (Zoloft) 200 mg DAILY PO 07/02/21 09:00 07/02/21 12:46 DC 07/02/21 08:28 Sertraline HCl (Zoloft) 200 mg DAILY PO 07/03/21 09:00 07/05/21 08:07 Levofloxacin (Levaquin) 500 mg DAILY06 PO 07/03/21 09:15 07/07/21 10:00 07/05/21 05:26 I have reviewed the current psychotropics carefully including drug interactions. Risk benefit ratio favors no change other than as noted in my dictated progress note. Diagnosis: Problems: (1) Impulse control disorder, unspecified (2) Anxiety disorder, unspecified (3) Dementia, vascular, with depression (4) Dementia, vascular, with delusions (5) Dementia in Alzheimer's disease with depression (6) Dementia in Alzheimer's disease with delusions (7) Dementia of the Alzheimer's type with early onset with behavioral dis turbance (8) Major neurocognitive disorder (9) Mild cognitive impairment MICHAEL MCKEON MD Jul 05, 2021 22:00
[2021-07-06] MEDS: levoFLOXacin 500 MG TABLET PO SCH (05:22)
[2021-07-06 06:23] VITALS: BP 171/82
[2021-07-06] MEDS: DIVALPROEX 125 MG CAP.SPRINK PO SCH ×2 (08:18→15:42)
[2021-07-06] MEDS: ASPIRIN CHEWABLE 81 MG TABLET. PO SCH (08:18)
[2021-07-06] MEDS: QUEtiapine 25 MG TABLET. PO SCH ×4 (08:19→17:11)
[2021-07-06] MEDS: CARBIDOPA/LEVODOPA 25/100MG TABLET PO SCH ×3 (08:19→20:32)
[2021-07-06] MEDS: POTASSIUM CHLORIDE 20 MEQ TABLET.ER. PO SCH (08:19)
[2021-07-06] MEDS: LACTOBACILLUS RHAMNOSUS GG 1 CAPSULE. PO SCH ×2 (08:19→20:32)
[2021-07-06] MEDS: SENNOSIDES 8.6 MG TABLET PO SCH (08:20)
[2021-07-06] MEDS: SERTRALINE 100 MG TABLET. PO SCH (08:20)
[2021-07-06] MEDS: CHOLECALCIFEROL (VITAMIN D3) 1,000 UNIT TABLET PO SCH (08:20)
[2021-07-06] MEDS: ASCORBIC ACID 500 MG TABLET PO SCH (08:20)
[2021-07-06] MEDS: NICOTINE 7MG PATCH. TD SCH (08:21)
[2021-07-06] MEDS: POLYETHYLENE GLYCOL 3350 17 GM PACKET. PO SCH (08:30)
[2021-07-06] MEDS: IPRATROPIUM BROMIDE 0.06% NASAL SPRAY 15ML BOTTLE NS SCH ×2 (08:56→20:32)
[2021-07-06 16:01] VITALS: BP 132/70
[2021-07-06] MEDS: ATORVASTATIN CALCIUM 10 MG TABLET. PO SCH (20:32)
--- NOTE | 2021-07-06 22:04 | PDOC ---
Exam Note: Daren Note: Please also refer to the separate dictated note~for this date of service dictated separately.~Patient seen individually. Discussed the patient with Nursing staff reviewed the chart.~Reviewed interim history and current functioning. Reviewed vital signs,~Labs/ Radiology~and current medications noted below. Continue current treatment with the changes noted in the dictated addendum note Assessment: Vital Signs/I&O: Vital Signs Date Time Temp Pulse Resp B/P (MAP) Pulse Ox O2 Delivery O2 Flow Rate FiO2 07/06/21 16:01 97.8 86 18 132/70 (90) 96 07/04/21 15:45 Room Air I & O 07/05/21 07/05/21 07/06/21 15:00 23:00 07:00 Intake Total 480 ml 840 ml Balance 480 ml 840 ml Current Medications: Meds: Current Medications Medications (Trade) Dose Ordered Sig/Daisy Route PRN Reason Start Time Stop Time Status Last Admin Dose Admin Acetaminophen (Tylenol) 650 mg PRN Q6HRS PRN PO MILD PAIN / TEMP > 100.3'F 05/11/21 16:15 06/26/21 04:07 Multi-Ingredient Ointment (Analgesic [place]) 1 eva PRN QID PRN TP MUSCLE PAIN 05/11/21 16:15 Al Hydroxide/Mg Hydroxide (Mylanta Plus Xs) 15 ml PRN AFTMEALHC PRN PO DYSPEPSIA 05/11/21 16:15 Magnesium Hydroxide (Milk Of Magnesia) 2,400 mg PRN QHS PRN PO CONSTIPATION 05/11/21 16:15 06/28/21 21:17 Nicotine (Nicoderm Cq 14mg Patch) 1 patch DAILY TD 05/12/21 09:00 05/30/21 17:27 DC 05/29/21 08:46 Ascorbic Acid (Vitamin C) 500 mg DAILY PO 05/12/21 09:00 07/06/21 08:20 Aspirin (Aspirin Chewable) 81 mg DAILY PO 05/12/21 09:00 07/06/21 08:18 Nicotine (Nicoderm Cq 14mg Patch) 1 patch DAILY TD 05/12/21 09:00 UNV Potassium Chloride (Klor-Con) 40 meq DAILY PO 05/12/21 09:00 07/06/21 08:19 Sennosides (Senna) 8.6 mg DAILY PO 05/12/21 09:00 07/06/21 08:20 Sertraline HCl (Zoloft) 125 mg DAILY PO 05/12/21 09:00 05/18/21 18:20 DC 05/18/21 08:59 Vitamin D (Vitamin D3) 1,000 unit DAILY PO 05/12/21 09:00 07/06/21 08:20 Cyanocobalamin (Vitamin B-12) 1,000 mcg [id number] PO 05/12/21 09:00 06/09/21 08:29 Polyethylene Glycol (miraLAX) 17 gm DAILY PO 05/12/21 09:00 07/06/21 08:30 Atorvastatin Calcium (Lipitor) 10 mg QHS PO 05/12/21 21:00 07/06/21 20:32 Quetiapine Fumarate (SEROquel) 25 mg PRN BID PRN PO AGITATION 05/12/21 07:15 05/19/21 19:14 DC 05/19/21 09:35 Divalproex Sodium (Depakote Sprinkles) 125 mg [id number] PO 05/12/21 09:00 05/12/21 16:01 DC 05/12/21 08:19 Ipratropium [place] (Atrovent Nasal) 1 spray BID NS 05/12/21 09:00 07/06/21 20:32 Divalproex Sodium (Depakote Sprinkles) 250 mg BID94 PO 05/12/21 16:00 05/16/21 18:09 DC 05/16/21 15:00 Cefdinir (Omnicef) 300 mg BID PO 05/14/21 21:00 05/20/21 22:00 DC 05/20/21 21:00 Lactobacillus Rhamnosus (Culturelle) 1 cap BID PO 05/14/21 21:00 07/06/21 20:32 Carbidopa/Levodopa (Sinemet 25/100) 1 tab TID PO 05/15/21 21:00 07/06/21 20:32 Divalproex Sodium (Depakote Sprinkles) 375 mg BID94 PO 05/17/21 09:00 05/27/21 19:14 DC 05/27/21 14:52 Sertraline HCl (Zoloft) 150 mg DAILY PO 05/19/21 09:00 06/01/21 11:53 DC 06/01/21 09:01 Quetiapine Fumarate (SEROquel) 25 mg 0900,1700 PO 05/20/21 09:00 05/23/21 18:17 DC 05/23/21 17:00 Olanzapine (ZyPREXA ZYDIS) 2.5 mg PRN Q2HR PRN PO PSYCHOSIS 05/20/21 10:00 06/29/21 15:19 Quetiapine Fumarate (SEROquel) 25 mg 0900,1300,1700 PO 05/24/21 09:00 05/25/21 11:57 DC 05/25/21 09:00 Quetiapine Fumarate (SEROquel) 25 mg 0900,1200,1500,1800 PO 05/25/21 12:00 07/06/21 17:11 Divalproex Sodium (Depakote Sprinkles) 500 mg BID94 PO 05/28/21 09:00 06/07/21 17:03 DC 06/07/21 08:54 Nicotine (Nicoderm Cq 7mg Patch) 1 patch DAILY TD 05/31/21 09:00 07/06/21 08:21 Sertraline HCl (Zoloft) 175 mg DAILY PO 06/02/21 09:00 07/01/21 21:36 DC 07/01/21 08:43 Divalproex Sodium (Depakote Sprinkles) 250 mg BID94 PO 06/08/21 09:00 06/07/21 17:07 DC Divalproex Sodium (Depakote Sprinkles) 250 mg BID94 PO 06/07/21 17:15 07/06/21 15:42 Artificial Tears (Artificial Tears) 1 drop PRN Q4HRS PRN OS DRY EYE 06/11/21 16:00 06/11/21 18:00 Acetaminophen/ Hydrocodone Bitart (Lortab 5/325) 1 tab PRN Q4HRS PRN PO MODERATE PAIN 4-6 06/26/21 06:00 06/28/21 21:19 Sertraline HCl (Zoloft) 200 mg DAILY PO 07/02/21 09:00 07/02/21 12:46 DC 07/02/21 08:28 Sertraline HCl (Zoloft) 200 mg DAILY PO 07/03/21 09:00 07/06/21 08:20 Levofloxacin (Levaquin) 500 mg DAILY06 PO 07/03/21 09:15 07/09/21 21:00 07/06/21 05:22 I have reviewed the current psychotropics carefully including drug interactions. Risk benefit ratio favors no change other than as noted in my dictated progress note. Diagnosis: Problems: (1) Impulse control disorder, unspecified (2) Major depressive disorder, severe (3) Anxiety disorder, unspecified (4) Dementia, vascular, with depression (5) Dementia, vascular, with delusions (6) Dementia in Alzheimer's disease with depression (7) Dementia in Alzheimer's disease with delusions (8) Dementia of the Alzheimer's type with early onset with behavioral disturbance (9) Major neurocognitive disorder (10) Mild cognitive impairment MICHAEL MCKEON MD Jul 06, 2021 22:03
[2021-07-07] MEDS: levoFLOXacin 500 MG TABLET PO SCH (05:12)
[2021-07-07 06:34] VITALS: BP 119/76
[2021-07-07 06:49] LABS: BASO % 1 % (0-3); EOS # 0.2 x10^3/uL (0.0-0.7); EOS % 5 % (0-3); HEMATOCRIT 37.9 % (39.0-53.0); HEMOGLOBIN 12.8 g/dL (13.0-17.5); LYMPH # 0.7 x10^3/uL (1.0-4.8); LYMPH % 16 % (24-48); MEAN CORPUSCULAR HEMOGLOBIN 32 pg (25-35); MEAN CORPUSCULAR HGB CONC 34 g/dL (31-37); MEAN CORPUSCULAR VOLUME 95 fL (79-100); MONO # 0.5 x10^3/uL (0.0-1.1); MONO % 10 % (0-9); NEUT # 3.2 x10^3uL (1.8-7.7); NEUT % 68 % (31-73); PLATELET COUNT 190 x10^3/uL (140-400); RED BLOOD COUNT 3.99 x10^6/uL (4.30-5.70); RED CELL DISTRIBUTION WIDTH 13.9 % (11.5-14.5); WHITE BLOOD COUNT 4.7 x10^3/uL (4.0-11.0)
[2021-07-07 07:07] LABS: ALBUMIN 3.3 g/dL (3.4-5.0); ALBUMIN/GLOBULIN RATIO 1.3 (1.0-1.7); CALCIUM 8.4 mg/dL (8.5-10.1); CREATININE 0.8 mg/dL (0.7-1.3); GFR 94.8; POTASSIUM 3.9 mmol/L (3.5-5.1); TOTAL BILIRUBIN 0.5 mg/dL (0.2-1.0); TOTAL PROTEIN 5.9 g/dL (6.4-8.2)
[2021-07-07] MEDS: IPRATROPIUM BROMIDE 0.06% NASAL SPRAY 15ML BOTTLE NS SCH ×2 (08:41→20:29)
[2021-07-07] MEDS: NICOTINE 7MG PATCH. TD SCH (08:42)
[2021-07-07] MEDS: CYANOCOBALAMIN (VITAMIN B-12) 1,000 MCG TABLET. PO SCH (08:42)
[2021-07-07] MEDS: POTASSIUM CHLORIDE 20 MEQ TABLET.ER. PO SCH (08:42)
[2021-07-07] MEDS: CHOLECALCIFEROL (VITAMIN D3) 1,000 UNIT TABLET PO SCH (08:42)
[2021-07-07] MEDS: POLYETHYLENE GLYCOL 3350 17 GM PACKET. PO SCH (08:42)
[2021-07-07] MEDS: SERTRALINE 100 MG TABLET. PO SCH (08:42)
[2021-07-07] MEDS: SENNOSIDES 8.6 MG TABLET PO SCH (08:42)
[2021-07-07] MEDS: DIVALPROEX 125 MG CAP.SPRINK PO SCH ×2 (08:43→15:08)
[2021-07-07] MEDS: ASPIRIN CHEWABLE 81 MG TABLET. PO SCH (08:43)
[2021-07-07] MEDS: ASCORBIC ACID 500 MG TABLET PO SCH (08:43)
[2021-07-07] MEDS: LACTOBACILLUS RHAMNOSUS GG 1 CAPSULE. PO SCH ×2 (08:43→20:29)
[2021-07-07] MEDS: QUEtiapine 25 MG TABLET. PO SCH ×4 (08:43→17:13)
[2021-07-07] MEDS: CARBIDOPA/LEVODOPA 25/100MG TABLET PO SCH ×3 (08:43→20:29)
--- NOTE | 2021-07-07 10:43 | PDOC ---
Exam Note: Daren Note: This note is a late entry for 07/05/2021 covers elements not covered in my initial note. Subjective: The patient was seen individually on 07/05/2021, discussed and reviewed the chart with Shaquille MATIAS. The patient slept 7 hours previous night. I met with the patient in his room. He remains withdrawn, spends much time in his room but not dropping himself on the floor, not aggressive. He does complain of some rib pain but improving. Review of Systems: Ambulation impaired, in wheelchair. No CV, , pulmonary, eye system symptoms on review. Mental Status Exam: The patient is oriented reasonably. I met with him in his room. Speech coherent. Abstraction fair. Computation impaired. Language function intact. Mood and affect somewhat anxious. No suicidal or homicidal ideation. Laboratory Data: Reviewed. 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 Anxiety disorder unspecified. Impulse control disorder unspecified. Plan: Continue current psychotropics as clinically indicated. Assessment: Vital Signs/I&O: Vital Signs Date Time Temp Pulse Resp B/P (MAP) Pulse Ox O2 Delivery O2 Flow Rate FiO2 07/07/21 06:34 97.7 76 17 119/76 (90) 96 07/04/21 15:45 Room Air I & O 07/06/21 07/06/21 07/07/21 15:00 23:00 07:00 Intake Total 840 ml 600 ml Balance 840 ml 600 ml Labs: Laboratory Tests Test 07/07/21 06:27 White Blood Count 4.7 x10^3/uL (4.0-11.0) Red Blood Count 3.99 x10^6/uL (4.30-5.70) L Hemoglobin 12.8 g/dL (13.0-17.5) L Hematocrit 37.9 % (39.0-53.0) L Mean Corpuscular Volume 95 fL (79-100) Mean Corpuscular Hemoglobin 32 pg (25-35) Mean Corpuscular Hemoglobin Concent 34 g/dL (31-37) Red Cell Distribution Width 13.9 % (11.5-14.5) Platelet Count 190 x10^3/uL (140-400) Neutrophils (%) (Auto) 68 % (31-73) Lymphocytes (%) (Auto) 16 % (24-48) L Monocytes (%) (Auto) 10 % (0-9) H Eosinophils (%) (Auto) 5 % (0-3) H Basophils (%) (Auto) 1 % (0-3) Neutrophils # (Auto) 3.2 x10^3uL (1.8-7.7) Lymphocytes # (Auto) 0.7 x10^3/uL (1.0-4.8) L Monocytes # (Auto) 0.5 x10^3/uL (0.0-1.1) Eosinophils # (Auto) 0.2 x10^3/uL (0.0-0.7) Basophils # (Auto) 0.0 x10^3/uL (0.0-0.2) Sodium Level 138 mmol/L (136-145) Potassium Level 3.9 mmol/L (3.5-5.1) Chloride Level 105 mmol/L (98-107) Carbon Dioxide Level 26 mmol/L (21-32) Anion Gap 7 (6-14) Blood Urea Nitrogen 15 mg/dL (8-26) Creatinine 0.8 mg/dL (0.7-1.3) Estimated GFR (Cockcroft-Gault) 94.8 BUN/Creatinine Ratio 19 (6-20) Glucose Level 84 mg/dL (70-99) Calcium Level 8.4 mg/dL (8.5-10.1) L Total Bilirubin 0.5 mg/dL (0.2-1.0) Aspartate Amino Transferase (AST) 12 U/L (15-37) L Alanine Aminotransferase (ALT) 8 U/L (16-63) L Alkaline Phosphatase 178 U/L (46-116) H Total Protein 5.9 g/dL (6.4-8.2) L Albumin 3.3 g/dL (3.4-5.0) L Albumin/Globulin Ratio 1.3 (1.0-1.7) Current Medications: I have reviewed the current psychotropics carefully including drug interactions. Risk benefit ratio favors no change other than as noted in my dictated progress note. Diagnosis: Problems: (1) Impulse control disorder, unspecified (2) Anxiety disorder, unspecified (3) Dementia, vascular, with depression (4) Dementia, vascular, with delusions (5) Dementia in Alzheimer's disease with depression (6) Dementia in Alzheimer's disease with delusions (7) Dementia of the Alzheimer's type with early onset with behavioral disturbance (8) Major neurocognitive disorder (9) Major depressive disorder, recurrent episode (10) Mild cognitive impairment MICHAEL MCKEON MD Jul 07, 2021 10:38
[2021-07-07 15:31] VITALS: BP 123/67
[2021-07-07] MEDS: ATORVASTATIN CALCIUM 10 MG TABLET. PO SCH (20:29)
--- NOTE | 2021-07-07 21:40 | PDOC ---
Exam Note: Daren Note: This note is a late entry for 07/06/2021 covers elements not covered in my initial note. Subjective: The patient was reviewed at treatment team meeting individually in the morning on 07/06/2021 with Eva Troncoso, Amanda Mobley, and Maria Esther Piña (social media community manager), Clara, activity therapy, and Tika MATIAS, discussed and reviewed the chart. Discussed the patients progress, reviewed history, current psychotropics, discharge, after care plans at some length. The patient slept 7-1/2 hours previous night. Average sleep 6 hours. Appetite 65%. He has been pleasant. He is on Amoxil for UTI. He did attend 4 groups including [facility], has been calmer. Review of Systems: Ambulation impaired, in wheelchair. No CV, , pulmonary, eye system symptoms on review. Mental Status Exam: The patient is oriented reasonably. I met with him in his room. He is lying in bed but pleasant, cooperative. He was able to tell me that he is feeling better. Speech coherent. Abstraction fair. Computation impaired. Language function intact. Mood and affect somewhat anxious. No suicidal or homicidal ideation. Laboratory Data: Reviewed. 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 Anxiety disorder unspecified. Impulse control disorder unspecified. Plan: Continue current psychotropics as clinically indicated. Assessment: Vital Signs/I&O: Vital Signs Date Time Temp Pulse Resp B/P (MAP) Pulse Ox O2 Delivery O2 Flow Rate FiO2 07/07/21 15:31 98.3 93 18 123/67 (85) 95 07/04/21 15:45 Room Air I & O 07/06/21 07/06/21 07/07/21 15:00 23:00 07:00 Intake Total 840 ml 600 ml Balance 840 ml 600 ml Labs: Laboratory Tests Test 07/07/21 06:27 White Blood Count 4.7 x10^3/uL (4.0-11.0) Red Blood Count 3.99 x10^6/uL (4.30-5.70) L Hemoglobin 12.8 g/dL (13.0-17.5) L Hematocrit 37.9 % (39.0-53.0) L Mean Corpuscular Volume 95 fL (79-100) Mean Corpuscular Hemoglobin 32 pg (25-35) Mean Corpuscular Hemoglobin Concent 34 g/dL (31-37) Red Cell Distribution Width 13.9 % (11.5-14.5) Platelet Count 190 x10^3/uL (140-400) Neutrophils (%) (Auto) 68 % (31-73) Lymphocytes (%) (Auto) 16 % (24-48) L Monocytes (%) (Auto) 10 % (0-9) H Eosinophils (%) (Auto) 5 % (0-3) H Basophils (%) (Auto) 1 % (0-3) Neutrophils # (Auto) 3.2 x10^3uL (1.8-7.7) Lymphocytes # (Auto) 0.7 x10^3/uL (1.0-4.8) L Monocytes # (Auto) 0.5 x10^3/uL (0.0-1.1) Eosinophils # (Auto) 0.2 x10^3/uL (0.0-0.7) Basophils # (Auto) 0.0 x10^3/uL (0.0-0.2) Sodium Level 138 mmol/L (136-145) Potassium Level 3.9 mmol/L (3.5-5.1) Chloride Level 105 mmol/L (98-107) Carbon Dioxide Level 26 mmol/L (21-32) Anion Gap 7 (6-14) Blood Urea Nitrogen 15 mg/dL (8-26) Creatinine 0.8 mg/dL (0.7-1.3) Estimated GFR (Cockcroft-Gault) 94.8 BUN/Creatinine Ratio 19 (6-20) Glucose Level 84 mg/dL (70-99) Calcium Level 8.4 mg/dL (8.5-10.1) L Total Bilirubin 0.5 mg/dL (0.2-1.0) Aspartate Amino Transferase (AST) 12 U/L (15-37) L Alanine Aminotransferase (ALT) 8 U/L (16-63) L Alkaline Phosphatase 178 U/L (46-116) H Total Protein 5.9 g/dL (6.4-8.2) L Albumin 3.3 g/dL (3.4-5.0) L Albumin/Globulin Ratio 1.3 (1.0-1.7) Current Medications: I have reviewed the current psychotropics carefully including drug interactions. Risk benefit ratio favors no change other than as noted in my dictated progress note. Diagnosis: Problems: (1) Impulse control disorder, unspecified (2) Anxiety disorder, unspecified (3) Dementia, vascular, with depression (4) Dementia, vascular, with delusions (5) Dementia in Alzheimer's disease with depression (6) Dementia in Alzheimer's disease with delusions (7) Dementia of the Alzheimer's type with early onset with behavioral disturbance (8) Major neurocognitive disorder (9) Major depressive disorder, recurrent episode (10) Mild cognitive impairment MICHAEL MCKEON MD Jul 07, 2021 21:40
--- NOTE | 2021-07-07 21:41 | PDOC ---
Exam Note: Daren Note: Please also refer to the separate dictated note~for this date of service dictated separately.~Patient seen individually. Discussed the patient with Nursing staff reviewed the chart.~Reviewed interim history and current functioning. Reviewed vital signs,~Labs/ Radiology~and current medications noted below. Continue current treatment with the changes noted in the dictated addendum note Assessment: Vital Signs/I&O: Vital Signs Date Time Temp Pulse Resp B/P (MAP) Pulse Ox O2 Delivery O2 Flow Rate FiO2 07/07/21 15:31 98.3 93 18 123/67 (85) 95 07/04/21 15:45 Room Air I & O 07/06/21 07/06/21 07/07/21 15:00 23:00 07:00 Intake Total 840 ml 600 ml Balance 840 ml 600 ml Labs: Laboratory Tests Test 07/07/21 06:27 White Blood Count 4.7 x10^3/uL (4.0-11.0) Red Blood Count 3.99 x10^6/uL (4.30-5.70) L Hemoglobin 12.8 g/dL (13.0-17.5) L Hematocrit 37.9 % (39.0-53.0) L Mean Corpuscular Volume 95 fL (79-100) Mean Corpuscular Hemoglobin 32 pg (25-35) Mean Corpuscular Hemoglobin Concent 34 g/dL (31-37) Red Cell Distribution Width 13.9 % (11.5-14.5) Platelet Count 190 x10^3/uL (140-400) Neutrophils (%) (Auto) 68 % (31-73) Lymphocytes (%) (Auto) 16 % (24-48) L Monocytes (%) (Auto) 10 % (0-9) H Eosinophils (%) (Auto) 5 % (0-3) H Basophils (%) (Auto) 1 % (0-3) Neutrophils # (Auto) 3.2 x10^3uL (1.8-7.7) Lymphocytes # (Auto) 0.7 x10^3/uL (1.0-4.8) L Monocytes # (Auto) 0.5 x10^3/uL (0.0-1.1) Eosinophils # (Auto) 0.2 x10^3/uL (0.0-0.7) Basophils # (Auto) 0.0 x10^3/uL (0.0-0.2) Sodium Level 138 mmol/L (136-145) Potassium Level 3.9 mmol/L (3.5-5.1) Chloride Level 105 mmol/L (98-107) Carbon Dioxide Level 26 mmol/L (21-32) Anion Gap 7 (6-14) Blood Urea Nitrogen 15 mg/dL (8-26) Creatinine 0.8 mg/dL (0.7-1.3) Estimated GFR (Cockcroft-Gault) 94.8 BUN/Creatinine Ratio 19 (6-20) Glucose Level 84 mg/dL (70-99) Calcium Level 8.4 mg/dL (8.5-10.1) L Total Bilirubin 0.5 mg/dL (0.2-1.0) Aspartate Amino Transferase (AST) 12 U/L (15-37) L Alanine Aminotransferase (ALT) 8 U/L (16-63) L Alkaline Phosphatase 178 U/L (46-116) H Total Protein 5.9 g/dL (6.4-8.2) L Albumin 3.3 g/dL (3.4-5.0) L Albumin/Globulin Ratio 1.3 (1.0-1.7) Current Medications: Meds: Laboratory Tests Test 07/07/21 06:27 White Blood Count 4.7 x10^3/uL Red Blood Count 3.99 x10^6/uL Hemoglobin 12.8 g/dL Hematocrit 37.9 % Mean Corpuscular Volume 95 fL Mean Corpuscular Hemoglobin 32 pg Mean Corpuscular Hemoglobin Concent 34 g/dL Red Cell Distribution Width 13.9 % Platelet Count 190 x10^3/uL Neutrophils (%) (Auto) 68 % Lymphocytes (%) (Auto) 16 % Monocytes (%) (Auto) 10 % Eosinophils (%) (Auto) 5 % Basophils (%) (Auto) 1 % Neutrophils # (Auto) 3.2 x10^3uL Lymphocytes # (Auto) 0.7 x10^3/uL Monocytes # (Auto) 0.5 x10^3/uL Eosinophils # (Auto) 0.2 x10^3/uL Basophils # (Auto) 0.0 x10^3/uL Sodium Level 138 mmol/L Potassium Level 3.9 mmol/L Chloride Level 105 mmol/L Carbon Dioxide Level 26 mmol/L Anion Gap 7 Blood Urea Nitrogen 15 mg/dL Creatinine 0.8 mg/dL Estimated GFR (Cockcroft-Gault) 94.8 BUN/Creatinine Ratio 19 Glucose Level 84 mg/dL Calcium Level 8.4 mg/dL Total Bilirubin 0.5 mg/dL Aspartate Amino Transf (AST/SGOT) 12 U/L Alanine Aminotransferase (ALT/SGPT) 8 U/L Alkaline Phosphatase 178 U/L Total Protein 5.9 g/dL Albumin 3.3 g/dL Albumin/Globulin Ratio 1.3 Current Medications Medications (Trade) Dose Ordered Sig/Daisy Route PRN Reason Start Time Stop Time Status Last Admin Dose Admin Acetaminophen (Tylenol) 650 mg PRN Q6HRS PRN PO MILD PAIN / TEMP > 100.3'F 05/11/21 16:15 06/26/21 04:07 Multi-Ingredient Ointment (Analgesic [place]) 1 eva PRN QID PRN TP MUSCLE PAIN 05/11/21 16:15 Al Hydroxide/Mg Hydroxide (Mylanta Plus Xs) 15 ml PRN AFTMEALHC PRN PO DYSPEPSIA 05/11/21 16:15 Magnesium Hydroxide (Milk Of Magnesia) 2,400 mg PRN QHS PRN PO CONSTIPATION 05/11/21 16:15 06/28/21 21:17 Nicotine (Nicoderm Cq 14mg Patch) 1 patch DAILY TD 05/12/21 09:00 05/30/21 17:27 DC 05/29/21 08:46 Ascorbic Acid (Vitamin C) 500 mg DAILY PO 05/12/21 09:00 07/07/21 08:43 Aspirin (Aspirin Chewable) 81 mg DAILY PO 05/12/21 09:00 07/07/21 08:43 Nicotine (Nicoderm Cq 14mg Patch) 1 patch DAILY TD 05/12/21 09:00 UNV Potassium Chloride (Klor-Con) 40 meq DAILY PO 05/12/21 09:00 07/07/21 08:42 Sennosides (Senna) 8.6 mg DAILY PO 05/12/21 09:00 07/07/21 08:42 Sertraline HCl (Zoloft) 125 mg DAILY PO 05/12/21 09:00 05/18/21 18:20 DC 05/18/21 08:59 Vitamin D (Vitamin D3) 1,000 unit DAILY PO 05/12/21 09:00 07/07/21 08:42 Cyanocobalamin (Vitamin B-12) 1,000 mcg [id number] PO 05/12/21 09:00 07/07/21 08:42 Polyethylene Glycol (miraLAX) 17 gm DAILY PO 05/12/21 09:00 07/07/21 08:42 Atorvastatin Calcium (Lipitor) 10 mg QHS PO 05/12/21 21:00 07/07/21 20:29 Quetiapine Fumarate (SEROquel) 25 mg PRN BID PRN PO AGITATION 05/12/21 07:15 05/19/21 19:14 DC 05/19/21 09:35 Divalproex Sodium (Depakote Sprinkles) 125 mg [id number] PO 05/12/21 09:00 05/12/21 16:01 DC 05/12/21 08:19 Ipratropium [place] (Atrovent Nasal) 1 spray BID NS 05/12/21 09:00 07/07/21 20:29 Divalproex Sodium (Depakote Sprinkles) 250 mg BID94 PO 05/12/21 16:00 05/16/21 18:09 DC 05/16/21 15:00 Cefdinir (Omnicef) 300 mg BID PO 05/14/21 21:00 05/20/21 22:00 DC 05/20/21 21:00 Lactobacillus Rhamnosus (Culturelle) 1 cap BID PO 05/14/21 21:00 07/07/21 20:29 Carbidopa/Levodopa (Sinemet 25/100) 1 tab TID PO 05/15/21 21:00 07/07/21 20:29 Divalproex Sodium (Depakote Sprinkles) 375 mg BID94 PO 05/17/21 09:00 05/27/21 19:14 DC 05/27/21 14:52 Sertraline HCl (Zoloft) 150 mg DAILY PO 05/19/21 09:00 06/01/21 11:53 DC 06/01/21 09:01 Quetiapine Fumarate (SEROquel) 25 mg 0900,1700 PO 05/20/21 09:00 05/23/21 18:17 DC 05/23/21 17:00 Olanzapine (ZyPREXA ZYDIS) 2.5 mg PRN Q2HR PRN PO PSYCHOSIS 05/20/21 10:00 06/29/21 15:19 Quetiapine Fumarate (SEROquel) 25 mg 0900,1300,1700 PO 05/24/21 09:00 05/25/21 11:57 DC 05/25/21 09:00 Quetiapine Fumarate (SEROquel) 25 mg 0900,1200,1500,1800 PO 05/25/21 12:00 07/07/21 17:13 Divalproex Sodium (Depakote Sprinkles) 500 mg BID94 PO 05/28/21 09:00 06/07/21 17:03 DC 06/07/21 08:54 Nicotine (Nicoderm Cq 7mg Patch) 1 patch DAILY TD 05/31/21 09:00 07/07/21 08:42 Sertraline HCl (Zoloft) 175 mg DAILY PO 06/02/21 09:00 07/01/21 21:36 DC 07/01/21 08:43 Divalproex Sodium (Depakote Sprinkles) 250 mg BID94 PO 06/08/21 09:00 06/07/21 17:07 DC Divalproex Sodium (Depakote Sprinkles) 250 mg BID94 PO 06/07/21 17:15 07/07/21 15:08 Artificial Tears (Artificial Tears) 1 drop PRN Q4HRS PRN OS DRY EYE 06/11/21 16:00 06/11/21 18:00 Acetaminophen/ Hydrocodone Bitart (Lortab 5/325) 1 tab PRN Q4HRS PRN PO MODERATE PAIN 4-6 06/26/21 06:00 06/28/21 21:19 Sertraline HCl (Zoloft) 200 mg DAILY PO 07/02/21 09:00 07/02/21 12:46 DC 07/02/21 08:28 Sertraline HCl (Zoloft) 200 mg DAILY PO 07/03/21 09:00 07/07/21 08:42 Levofloxacin (Levaquin) 500 mg DAILY06 PO 07/03/21 09:15 07/09/21 21:00 07/07/21 05:12 I have reviewed the current psychotropics carefully including drug interactions. Risk benefit ratio favors no change other than as noted in my dictated progress note. Diagnosis: Problems: (1) Impulse control disorder, unspecified (2) Anxiety disorder, unspecified (3) Dementia, vascular, with depression (4) Dementia, vascular, with delusions (5) Dementia in Alzheimer's disease with depression (6) Dementia in Alzheimer's disease with delusions (7) Dementia of the Alzheimer's type with early onset with behavioral disturbance (8) Major neurocognitive disorder (9) Major depressive disorder, recurrent episode (10) Mild cognitive impairment MICHAEL MCKEON MD Jul 07, 2021 21:41
[2021-07-08 04:56] VITALS: BP 144/81
[2021-07-08] MEDS: levoFLOXacin 500 MG TABLET PO SCH (06:00)
[2021-07-08] MEDS: ASPIRIN CHEWABLE 81 MG TABLET. PO SCH (08:23)
[2021-07-08] MEDS: CHOLECALCIFEROL (VITAMIN D3) 1,000 UNIT TABLET PO SCH (08:23)
[2021-07-08] MEDS: SENNOSIDES 8.6 MG TABLET PO SCH (08:24)
[2021-07-08] MEDS: ASCORBIC ACID 500 MG TABLET PO SCH (08:24)
[2021-07-08] MEDS: POTASSIUM CHLORIDE 20 MEQ TABLET.ER. PO SCH (08:24)
[2021-07-08] MEDS: SERTRALINE 100 MG TABLET. PO SCH (08:24)
[2021-07-08] MEDS: DIVALPROEX 125 MG CAP.SPRINK PO SCH ×2 (08:24→15:16)
[2021-07-08] MEDS: CARBIDOPA/LEVODOPA 25/100MG TABLET PO SCH ×3 (08:25→20:04)
[2021-07-08] MEDS: IPRATROPIUM BROMIDE 0.06% NASAL SPRAY 15ML BOTTLE NS SCH ×2 (08:25→20:05)
[2021-07-08] MEDS: POLYETHYLENE GLYCOL 3350 17 GM PACKET. PO SCH (08:25)
[2021-07-08] MEDS: QUEtiapine 25 MG TABLET. PO SCH ×4 (08:25→17:23)
[2021-07-08] MEDS: LACTOBACILLUS RHAMNOSUS GG 1 CAPSULE. PO SCH ×2 (08:25→20:04)
[2021-07-08] MEDS: NICOTINE 7MG PATCH. TD SCH (08:26)
[2021-07-08 15:34] VITALS: BP 142/80
[2021-07-08] MEDS: ATORVASTATIN CALCIUM 10 MG TABLET. PO SCH (20:04)
[2021-07-09 05:57] VITALS: BP 142/84
--- NOTE | 2021-07-09 07:11 | PDOC ---
Exam Note: Daren Note: Late entry for 07/08/2021. Please also refer to the separate dictated note~for this date of service dictated separately.~Patient seen individually. Discussed the patient with Nursing staff reviewed the chart.~Reviewed interim history and current functioning. Reviewed vital signs,~Labs/ Radiology~and current medic ations noted below. Continue current treatment with the changes noted in the dictated addendum note Assessment: Vital Signs/I&O: Vital Signs Date Time Temp Pulse Resp B/P (MAP) Pulse Ox O2 Delivery O2 Flow Rate FiO2 07/09/21 05:57 97.4 74 18 142/84 (103) 97 Room Air I & O 07/08/21 07/08/21 07/09/21 15:00 23:00 07:00 Intake Total 600 ml 360 ml Balance 600 ml 360 ml Current Medications: Meds: Current Medications Medications (Trade) Dose Ordered Sig/Daisy Route PRN Reason Start Time Stop Time Status Last Admin Dose Admin Acetaminophen (Tylenol) 650 mg PRN Q6HRS PRN PO MILD PAIN / TEMP > 100.3'F 05/11/21 16:15 06/26/21 04:07 Multi-Ingredient Ointment (Analgesic [place]) 1 eva PRN QID PRN TP MUSCLE PAIN 05/11/21 16:15 Al Hydroxide/Mg Hydroxide (Mylanta Plus Xs) 15 ml PRN AFTMEALHC PRN PO DYSPEPSIA 05/11/21 16:15 Magnesium Hydroxide (Milk Of Magnesia) 2,400 mg PRN QHS PRN PO CONSTIPATION 05/11/21 16:15 06/28/21 21:17 Nicotine (Nicoderm Cq 14mg Patch) 1 patch DAILY TD 05/12/21 09:00 05/30/21 17:27 DC 05/29/21 08:46 Ascorbic Acid (Vitamin C) 500 mg DAILY PO 05/12/21 09:00 07/08/21 08:24 Aspirin (Aspirin Chewable) 81 mg DAILY PO 05/12/21 09:00 07/08/21 08:23 Nicotine (Nicoderm Cq 14mg Patch) 1 patch DAILY TD 05/12/21 09:00 UNV Potassium Chloride (Klor-Con) 40 meq DAILY PO 05/12/21 09:00 07/08/21 08:24 Sennosides (Senna) 8.6 mg DAILY PO 05/12/21 09:00 07/08/21 08:24 Sertraline HCl (Zoloft) 125 mg DAILY PO 05/12/21 09:00 05/18/21 18:20 DC 05/18/21 08:59 Vitamin D (Vitamin D3) 1,000 unit DAILY PO 05/12/21 09:00 07/08/21 08:23 Cyanocobalamin (Vitamin B-12) 1,000 mcg [id number] PO 05/12/21 09:00 07/07/21 08:42 Polyethylene Glycol (miraLAX) 17 gm DAILY PO 05/12/21 09:00 07/08/21 08:25 Atorvastatin Calcium (Lipitor) 10 mg QHS PO 05/12/21 21:00 07/08/21 20:04 Quetiapine Fumarate (SEROquel) 25 mg PRN BID PRN PO AGITATION 05/12/21 07:15 05/19/21 19:14 DC 05/19/21 09:35 Divalproex Sodium (Depakote Sprinkles) 125 mg BID94 PO 05/12/21 09:00 05/12/21 16:01 DC 05/12/21 08:19 Ipratropium [place] (Atrovent Nasal) 1 spray BID NS 05/12/21 09:00 07/08/21 20:05 Divalproex Sodium (Depakote Sprinkles) 250 mg BID94 PO 05/12/21 16:00 05/16/21 18:09 DC 05/16/21 15:00 Cefdinir (Omnicef) 300 mg BID PO 05/14/21 21:00 05/20/21 22:00 DC 05/20/21 21:00 Lactobacillus Rhamnosus (Culturelle) 1 cap BID PO 05/14/21 21:00 07/08/21 20:04 Carbidopa/Levodopa (Sinemet 25/100) 1 tab TID PO 05/15/21 21:00 07/08/21 20:04 Divalproex Sodium (Depakote Sprinkles) 375 mg BID94 PO 05/17/21 09:00 05/27/21 19:14 DC 05/27/21 14:52 Sertraline HCl (Zoloft) 150 mg DAILY PO 05/19/21 09:00 06/01/21 11:53 DC 06/01/21 09:01 Quetiapine Fumarate (SEROquel) 25 mg 0900,1700 PO 05/20/21 09:00 05/23/21 18:17 DC 05/23/21 17:00 Olanzapine (ZyPREXA ZYDIS) 2.5 mg PRN Q2HR PRN PO PSYCHOSIS 05/20/21 10:00 06/29/21 15:19 Quetiapine Fumarate (SEROquel) 25 mg 0900,1300,1700 PO 05/24/21 09:00 05/25/21 11:57 DC 05/25/21 09:00 Quetiapine Fumarate (SEROquel) 25 mg 0900,1200,1500,1800 PO 05/25/21 12:00 07/08/21 17:23 Divalproex Sodium (Depakote Sprinkles) 500 mg BID94 PO 05/28/21 09:00 06/07/21 17:03 DC 06/07/21 08:54 Nicotine (Nicoderm Cq 7mg Patch) 1 patch DAILY TD 05/31/21 09:00 07/08/21 08:26 Sertraline HCl (Zoloft) 175 mg DAILY PO 06/02/21 09:00 07/01/21 21:36 DC 07/01/21 08:43 Divalproex Sodium (Depakote Sprinkles) 250 mg BID94 PO 06/08/21 09:00 06/07/21 17:07 DC Divalproex Sodium (Depakote Sprinkles) 250 mg BID94 PO 06/07/21 17:15 07/08/21 15:16 Artificial Tears (Artificial Tears) 1 drop PRN Q4HRS PRN OS DRY EYE 06/11/21 16:00 06/11/21 18:00 Acetaminophen/ Hydrocodone Bitart (Lortab 5/325) 1 tab PRN Q4HRS PRN PO MODERATE PAIN 4-6 06/26/21 06:00 06/28/21 21:19 Sertraline HCl (Zoloft) 200 mg DAILY PO 07/02/21 09:00 07/02/21 12:46 DC 07/02/21 08:28 Sertraline HCl (Zoloft) 200 mg DAILY PO 07/03/21 09:00 07/08/21 08:24 Levofloxacin (Levaquin) 500 mg DAILY06 PO 07/03/21 09:15 07/09/21 21:00 07/08/21 06:00 I have reviewed the current psychotropics carefully including drug interactions. Risk benefit ratio favors no change other than as noted in my dictated progress note. Diagnosis: Problems: (1) Impulse control disorder, unspecified (2) Anxiety disorder, unspecified (3) Dementia, vascular, with depression (4) Dementia, vascular, with delusions (5) Dementia in Alzheimer's disease with depression (6) Dementia in Alzheimer's disease with delusions (7) Dementia of the Alzheimer's type with early onset with behavioral disturbance (8) Major neurocognitive disorder (9) Major depressive disorder, recurrent episode (10) Mild cognitive impairment MICHAEL MCKEON MD Jul 09, 2021 07:11
[2021-07-09 08:43] LABS: BASO % 1 % (0-3); EOS # 0.2 x10^3/uL (0.0-0.7); EOS % 3 % (0-3); HEMATOCRIT 41.8 % (39.0-53.0); LYMPH # 0.9 x10^3/uL (1.0-4.8); LYMPH % 12 % (24-48); MEAN CORPUSCULAR HEMOGLOBIN 32 pg (25-35); MEAN CORPUSCULAR HGB CONC 34 g/dL (31-37); MEAN CORPUSCULAR VOLUME 96 fL (79-100); MONO # 0.6 x10^3/uL (0.0-1.1); MONO % 7 % (0-9); NEUT # 5.9 x10^3uL (1.8-7.7); NEUT % 77 % (31-73); PLATELET COUNT 200 x10^3/uL (140-400); RED BLOOD COUNT 4.37 x10^6/uL (4.30-5.70); RED CELL DISTRIBUTION WIDTH 14.3 % (11.5-14.5); WHITE BLOOD COUNT 7.7 x10^3/uL (4.0-11.0)
[2021-07-09] MEDS: IPRATROPIUM BROMIDE 0.06% NASAL SPRAY 15ML BOTTLE NS SCH ×2 (08:44→21:00)
[2021-07-09] MEDS: levoFLOXacin 500 MG TABLET PO SCH (08:47)
[2021-07-09] MEDS: NICOTINE 7MG PATCH. TD SCH (08:47)
[2021-07-09] MEDS: POTASSIUM CHLORIDE 20 MEQ TABLET.ER. PO SCH (08:48)
[2021-07-09] MEDS: DIVALPROEX 125 MG CAP.SPRINK PO SCH ×2 (08:48→17:02)
[2021-07-09] MEDS: ASCORBIC ACID 500 MG TABLET PO SCH (08:48)
[2021-07-09] MEDS: SENNOSIDES 8.6 MG TABLET PO SCH (08:48)
[2021-07-09] MEDS: SERTRALINE 100 MG TABLET. PO SCH (08:48)
[2021-07-09] MEDS: CARBIDOPA/LEVODOPA 25/100MG TABLET PO SCH ×3 (08:48→21:02)
[2021-07-09] MEDS: POLYETHYLENE GLYCOL 3350 17 GM PACKET. PO SCH (08:49)
[2021-07-09] MEDS: ASPIRIN CHEWABLE 81 MG TABLET. PO SCH (08:49)
[2021-07-09] MEDS: CHOLECALCIFEROL (VITAMIN D3) 1,000 UNIT TABLET PO SCH (08:49)
[2021-07-09] MEDS: LACTOBACILLUS RHAMNOSUS GG 1 CAPSULE. PO SCH ×2 (08:49→21:02)
[2021-07-09] MEDS: QUEtiapine 25 MG TABLET. PO SCH ×4 (08:49→18:14)
[2021-07-09 08:51] LABS: ALBUMIN 3.6 g/dL (3.4-5.0); ALBUMIN/GLOBULIN RATIO 1.1 (1.0-1.7); CALCIUM 8.8 mg/dL (8.5-10.1); CREATININE 0.7 mg/dL (0.7-1.3); GFR 110.5; POTASSIUM 4.5 mmol/L (3.5-5.1); TOTAL BILIRUBIN 0.5 mg/dL (0.2-1.0); TOTAL PROTEIN 6.8 g/dL (6.4-8.2)
[2021-07-09 15:41] VITALS: BP 117/76
[2021-07-09] MEDS: ATORVASTATIN CALCIUM 10 MG TABLET. PO SCH (21:02)
--- NOTE | 2021-07-09 21:55 | PDOC ---
Exam Note: Daren Note: Please also refer to the separate dictated note~for this date of service dictated separately.~Patient seen individually. Discussed the patient with Nursing staff reviewed the chart.~Reviewed interim history and current functioning. Reviewed vital signs,~Labs/ Radiology~and current medications noted below. Continue current treatment with the changes noted in the dictated addendum note Assessment: Vital Signs/I&O: Vital Signs Date Time Temp Pulse Resp B/P (MAP) Pulse Ox O2 Delivery O2 Flow Rate FiO2 07/09/21 15:41 97.4 92 17 117/76 (90) 97 Room Air I & O 07/08/21 07/08/21 07/09/21 15:00 23:00 07:00 Intake Total 600 ml 360 ml Balance 600 ml 360 ml Labs: Laboratory Tests Test 07/09/21 08:10 White Blood Count 7.7 x10^3/uL (4.0-11.0) Red Blood Count 4.37 x10^6/uL (4.30-5.70) Hemoglobin 14.0 g/dL (13.0-17.5) Hematocrit 41.8 % (39.0-53.0) Mean Corpuscular Volume 96 fL (79-100) Mean Corpuscular Hemoglobin 32 pg (25-35) Mean Corpuscular Hemoglobin Concent 34 g/dL (31-37) Red Cell Distribution Width 14.3 % (11.5-14.5) Platelet Count 200 x10^3/uL (140-400) Neutrophils (%) (Auto) 77 % (31-73) H Lymphocytes (%) (Auto) 12 % (24-48) L Monocytes (%) (Auto) 7 % (0-9) Eosinophils (%) (Auto) 3 % (0-3) Basophils (%) (Auto) 1 % (0-3) Neutrophils # (Auto) 5.9 x10^3uL (1.8-7.7) Lymphocytes # (Auto) 0.9 x10^3/uL (1.0-4.8) L Monocytes # (Auto) 0.6 x10^3/uL (0.0-1.1) Eosinophils # (Auto) 0.2 x10^3/uL (0.0-0.7) Basophils # (Auto) 0.0 x10^3/uL (0.0-0.2) Sodium Level 139 mmol/L (136-145) Potassium Level 4.5 mmol/L (3.5-5.1) Chloride Level 105 mmol/L (98-107) Carbon Dioxide Level 26 mmol/L (21-32) Anion Gap 8 (6-14) Blood Urea Nitrogen 15 mg/dL (8-26) Creatinine 0.7 mg/dL (0.7-1.3) Estimated GFR (Cockcroft-Gault) 110.5 BUN/Creatinine Ratio 21 (6-20) H Glucose Level 85 mg/dL (70-99) Calcium Level 8.8 mg/dL (8.5-10.1) Total Bilirubin 0.5 mg/dL (0.2-1.0) Aspartate Amino Transferase (AST) 15 U/L (15-37) Alanine Aminotransferase (ALT) 9 U/L (16-63) L Alkaline Phosphatase 241 U/L (46-116) H Total Protein 6.8 g/dL (6.4-8.2) Albumin 3.6 g/dL (3.4-5.0) Albumin/Globulin Ratio 1.1 (1.0-1.7) Current Medications: Meds: Laboratory Tests Test 07/09/21 08:10 White Blood Count 7.7 x10^3/uL Red Blood Count 4.37 x10^6/uL Hemoglobin 14.0 g/dL Hematocrit 41.8 % Mean Corpuscular Volume 96 fL Mean Corpuscular Hemoglobin 32 pg Mean Corpuscular Hemoglobin Concent 34 g/dL Red Cell Distribution Width 14.3 % Platelet Count 200 x10^3/uL Neutrophils (%) (Auto) 77 % Lymphocytes (%) (Auto) 12 % Monocytes (%) (Auto) 7 % Eosinophils (%) (Auto) 3 % Basophils (%) (Auto) 1 % Neutrophils # (Auto) 5.9 x10^3uL Lymphocytes # (Auto) 0.9 x10^3/uL Monocytes # (Auto) 0.6 x10^3/uL Eosinophils # (Auto) 0.2 x10^3/uL Basophils # (Auto) 0.0 x10^3/uL Sodium Level 139 mmol/L Potassium Level 4.5 mmol/L Chloride Level 105 mmol/L Carbon Dioxide Level 26 mmol/L Anion Gap 8 Blood Urea Nitrogen 15 mg/dL Creatinine 0.7 mg/dL Estimated GFR (Cockcroft-Gault) 110.5 BUN/Creatinine Ratio 21 Glucose Level 85 mg/dL Calcium Level 8.8 mg/dL Total Bilirubin 0.5 mg/dL Aspartate Amino Transf (AST/SGOT) 15 U/L Alanine Aminotransferase (ALT/SGPT) 9 U/L Alkaline Phosphatase 241 U/L Total Protein 6.8 g/dL Albumin 3.6 g/dL Albumin/Globulin Ratio 1.1 Current Medications Medications (Trade) Dose Ordered Sig/Daisy Route PRN Reason Start Time Stop Time Status Last Admin Dose Admin Acetaminophen (Tylenol) 650 mg PRN Q6HRS PRN PO MILD PAIN / TEMP > 100.3'F 05/11/21 16:15 06/26/21 04:07 Multi-Ingredient Ointment (Analgesic [place]) 1 eva PRN QID PRN TP MUSCLE PAIN 05/11/21 16:15 Al Hydroxide/Mg Hydroxide (Mylanta Plus Xs) 15 ml PRN AFTMEALHC PRN PO DYSPEPSIA 05/11/21 16:15 Magnesium Hydroxide (Milk Of Magnesia) 2,400 mg PRN QHS PRN PO CONSTIPATION 05/11/21 16:15 06/28/21 21:17 Nicotine (Nicoderm Cq 14mg Patch) 1 patch DAILY TD 05/12/21 09:00 05/30/21 17:27 DC 05/29/21 08:46 Ascorbic Acid (Vitamin C) 500 mg DAILY PO 05/12/21 09:00 07/09/21 08:48 Aspirin (Aspirin Chewable) 81 mg DAILY PO 05/12/21 09:00 07/09/21 08:49 Nicotine (Nicoderm Cq 14mg Patch) 1 patch DAILY TD 05/12/21 09:00 UNV Potassium Chloride (Klor-Con) 40 meq DAILY PO 05/12/21 09:00 07/09/21 08:48 Sennosides (Senna) 8.6 mg DAILY PO 05/12/21 09:00 07/09/21 08:48 Sertraline HCl (Zoloft) 125 mg DAILY PO 05/12/21 09:00 05/18/21 18:20 DC 05/18/21 08:59 Vitamin D (Vitamin D3) 1,000 unit DAILY PO 05/12/21 09:00 3/27/22 08:49 Cyanocobalamin (Vitamin B-12) 1,000 mcg [id number] PO 05/12/21 09:00 07/07/21 08:42 Polyethylene Glycol (miraLAX) 17 gm DAILY PO 05/12/21 09:00 07/09/21 08:49 Atorvastatin Calcium (Lipitor) 10 mg QHS PO 05/12/21 21:00 07/09/21 21:02 Quetiapine Fumarate (SEROquel) 25 mg PRN BID PRN PO AGITATION 05/12/21 07:15 05/19/21 19:14 DC 05/19/21 09:35 Divalproex Sodium (Depakote Sprinkles) 125 mg BID94 PO 05/12/21 09:00 05/12/21 16:01 DC 05/12/21 08:19 Ipratropium [place] (Atrovent Nasal) 1 spray BID NS 05/12/21 09:00 07/09/21 08:44 Divalproex Sodium (Depakote Sprinkles) 250 mg BID94 PO 05/12/21 16:00 05/16/21 18:09 DC 05/16/21 15:00 Cefdinir (Omnicef) 300 mg BID PO 05/14/21 21:00 05/20/21 22:00 DC 05/20/21 21:00 Lactobacillus Rhamnosus (Culturelle) 1 cap BID PO 05/14/21 21:00 07/09/21 21:02 Carbidopa/Levodopa (Sinemet 25/100) 1 tab TID PO 05/15/21 21:00 07/09/21 21:02 Divalproex Sodium (Depakote Sprinkles) 375 mg BID94 PO 05/17/21 09:00 05/27/21 19:14 DC 05/27/21 14:52 Sertraline HCl (Zoloft) 150 mg DAILY PO 05/19/21 09:00 06/01/21 11:53 DC 06/01/21 09:01 Quetiapine Fumarate (SEROquel) 25 mg 0900,1700 PO 05/20/21 09:00 05/23/21 18:17 DC 05/23/21 17:00 Olanzapine (ZyPREXA ZYDIS) 2.5 mg PRN Q2HR PRN PO PSYCHOSIS 05/20/21 10:00 07/09/21 18:14 Quetiapine Fumarate (SEROquel) 25 mg 0900,1300,1700 PO 05/24/21 09:00 05/25/21 11:57 DC 05/25/21 09:00 Quetiapine Fumarate (SEROquel) 25 mg 0900,1200,1500,1800 PO 05/25/21 12:00 07/09/21 18:14 Divalproex Sodium (Depakote Sprinkles) 500 mg BID94 PO 05/28/21 09:00 06/07/21 17:03 DC 06/07/21 08:54 Nicotine (Nicoderm Cq 7mg Patch) 1 patch DAILY TD 05/31/21 09:00 07/09/21 08:47 Sertraline HCl (Zoloft) 175 mg DAILY PO 06/02/21 09:00 07/01/21 21:36 DC 07/01/21 08:43 Divalproex Sodium (Depakote Sprinkles) 250 mg BID94 PO 06/08/21 09:00 06/07/21 17:07 DC Divalproex Sodium (Depakote Sprinkles) 250 mg BID94 PO 06/07/21 17:15 07/09/21 17:02 Artificial Tears (Artificial Tears) 1 drop PRN Q4HRS PRN OS DRY EYE 06/11/21 16:00 06/11/21 18:00 Acetaminophen/ Hydrocodone Bitart (Lortab 5/325) 1 tab PRN Q4HRS PRN PO MODERATE PAIN 4-6 06/26/21 06:00 06/28/21 21:19 Sertraline HCl (Zoloft) 200 mg DAILY PO 07/02/21 09:00 07/02/21 12:46 DC 07/02/21 08:28 Sertraline HCl (Zoloft) 200 mg DAILY PO 07/03/21 09:00 07/09/21 08:48 Levofloxacin (Levaquin) 500 mg DAILY06 PO 07/03/21 09:15 07/09/21 21:00 DC 07/09/21 08:47 I have reviewed the current psychotropics carefully including drug interactions. Risk benefit ratio favors no change other than as noted in my dictated progress note. Diagnosis: Problems: (1) Impulse control disorder, unspecified (2) Anxiety disorder, unspecified (3) Dementia, vascular, with depression (4) Dementia, vascular, with delusions (5) Dementia in Alzheimer's disease with depression (6) Dementia in Alzheimer's disease with delusions (7) Dementia of the Alzheimer's type with early onset with behavioral disturbance (8) Major neurocognitive disorder (9) Major depressive disorder, recurrent episode MICHAEL MCKEON MD Jul 09, 2021 21:55
[2021-07-10 06:04] VITALS: BP 118/73
--- NOTE | 2021-07-10 07:23 | PDOC ---
Exam Note: Daren Note: This note is a late entry for 07/07/2021 covers elements not covered in my initial note. Subjective: The patient was seen individually on 07/07/2021, discussed and reviewed the chart with Corinne MATIAS. The patient slept 9 hours previous night. I met with him in his room. He is withdrawn, spends much time in his room, reading a book. Alkaline phosphatase 178, which is increased from 72 and we will repeat it on Saturday. AST and ALT is unremarkable. Patient had many questions about discharge plans and we addressed this. Review of Systems: Ambulation impaired, in wheelchair. He has difficulty transferring himself. No CV, , pulmonary, eye system symptoms on review. Mental Status Exam: The patient is oriented reasonably. Speech coherent. Abstraction fair. Computation impaired. Language function intact. Mood and affect somewhat anxious. No suicidal or homicidal ideation. Laboratory Data: Reviewed. 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 Anxiety disorder unspecified. Impulse control disorder unspecified. Plan: Continue current psychotropics as clinically indicated. Assessment: Vital Signs/I&O: Vital Signs Date Time Temp Pulse Resp B/P (MAP) Pulse Ox O2 Delivery O2 Flow Rate FiO2 07/10/21 06:04 97.6 78 14 118/73 (88) 96 07/09/21 15:41 Room Air I & O 07/09/21 07/09/21 07/10/21 15:00 23:00 07:00 Intake Total 600 ml 400 ml 480 ml Balance 600 ml 400 ml 480 ml Labs: Laboratory Tests Test 07/09/21 08:10 White Blood Count 7.7 x10^3/uL (4.0-11.0) Red Blood Count 4.37 x10^6/uL (4.30-5.70) Hemoglobin 14.0 g/dL (13.0-17.5) Hematocrit 41.8 % (39.0-53.0) Mean Corpuscular Volume 96 fL (79-100) Mean Corpuscular Hemoglobin 32 pg (25-35) Mean Corpuscular Hemoglobin Concent 34 g/dL (31-37) Red Cell Distribution Width 14.3 % (11.5-14.5) Platelet Count 200 x10^3/uL (140-400) Neutrophils (%) (Auto) 77 % (31-73) H Lymphocytes (%) (Auto) 12 % (24-48) L Monocytes (%) (Auto) 7 % (0-9) Eosinophils (%) (Auto) 3 % (0-3) Basophils (%) (Auto) 1 % (0-3) Neutrophils # (Auto) 5.9 x10^3uL (1.8-7.7) Lymphocytes # (Auto) 0.9 x10^3/uL (1.0-4.8) L Monocytes # (Auto) 0.6 x10^3/uL (0.0-1.1) Eosinophils # (Auto) 0.2 x10^3/uL (0.0-0.7) Basophils # (Auto) 0.0 x10^3/uL (0.0-0.2) Sodium Level 139 mmol/L (136-145) Potassium Level 4.5 mmol/L (3.5-5.1) Chloride Level 105 mmol/L (98-107) Carbon Dioxide Level 26 mmol/L (21-32) Anion Gap 8 (6-14) Blood Urea Nitrogen 15 mg/dL (8-26) Creatinine 0.7 mg/dL (0.7-1.3) Estimated GFR (Cockcroft-Gault) 110.5 BUN/Creatinine Ratio 21 (6-20) H Glucose Level 85 mg/dL (70-99) Calcium Level 8.8 mg/dL (8.5-10.1) Total Bilirubin 0.5 mg/dL (0.2-1.0) Aspartate Amino Transferase (AST) 15 U/L (15-37) Alanine Aminotransferase (ALT) 9 U/L (16-63) L Alkaline Phosphatase 241 U/L (46-116) H Total Protein 6.8 g/dL (6.4-8.2) Albumin 3.6 g/dL (3.4-5.0) Albumin/Globulin Ratio 1.1 (1.0-1.7) Current Medications: I have reviewed the current psychotropics carefully including drug interactions. Risk benefit ratio favors no change other than as noted in my dictated progress note. Diagnosis: Problems: (1) Impulse control disorder, unspecified (2) Anxiety disorder, unspecified (3) Dementia, vascular, with depression (4) Dementia, vascular, with delusions (5) Dementia in Alzheimer's disease with depression (6) Dementia in Alzheimer's disease with delusions (7) Dementia of the Alzheimer's type with early onset with behavioral disturbance (8) Major neurocognitive disorder (9) Mild cognitive impairment MICHAEL MCKEON MD Jul 10, 2021 07:23
[2021-07-10] MEDS: IPRATROPIUM BROMIDE 0.06% NASAL SPRAY 15ML BOTTLE NS SCH ×2 (07:29→20:15)
[2021-07-10] MEDS: ASCORBIC ACID 500 MG TABLET PO SCH (07:34)
[2021-07-10] MEDS: SENNOSIDES 8.6 MG TABLET PO SCH (07:34)
[2021-07-10] MEDS: CHOLECALCIFEROL (VITAMIN D3) 1,000 UNIT TABLET PO SCH (07:34)
[2021-07-10] MEDS: LACTOBACILLUS RHAMNOSUS GG 1 CAPSULE. PO SCH ×2 (07:34→20:16)
[2021-07-10] MEDS: NICOTINE 7MG PATCH. TD SCH (07:35)
[2021-07-10] MEDS: QUEtiapine 25 MG TABLET. PO SCH ×4 (07:35→17:43)
[2021-07-10] MEDS: SERTRALINE 100 MG TABLET. PO SCH (07:35)
[2021-07-10] MEDS: ASPIRIN CHEWABLE 81 MG TABLET. PO SCH (07:35)
[2021-07-10] MEDS: CARBIDOPA/LEVODOPA 25/100MG TABLET PO SCH ×3 (07:36→20:16)
[2021-07-10] MEDS: POLYETHYLENE GLYCOL 3350 17 GM PACKET. PO SCH (07:36)
[2021-07-10] MEDS: DIVALPROEX 125 MG CAP.SPRINK PO SCH ×2 (07:36→16:00)
[2021-07-10] MEDS: POTASSIUM CHLORIDE 20 MEQ TABLET.ER. PO SCH (07:36)
--- NOTE | 2021-07-10 07:42 | PDOC ---
Exam Note: Daren Note: This note is a late entry for 07/08/2021 covers elements not covered in my initial note. Subjective: The patient was seen individually on 07/08/2021, discussed and reviewed the chart with Hui MATIAS. The patient slept 8 hours previous night. He slid himself out of the chair. No injury noted today. I met with him in his room. Review of Systems: Ambulation impaired, in wheelchair. No CV, , pulmonary, eye system symptoms on review. Mental Status Exam: The patient is oriented reasonably. I addressed him making sure he does not slip himself on the floor as nursing homes do not take that very positively in their decision to accept him and he seemed to understand. Speech coherent. Abstraction fair. Computation impaired. Language function intact. Mood and affect somewhat anxious. No suicidal or homicidal ideation. Laboratory Data: Reviewed. 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 Anxiety disorder unspecified. Impulse control disorder unspecified. Plan: Continue current psychotropics as clinically indicated. We will defer discharge plans to social workers as soon as they find placement. Assessment: Vital Signs/I&O: Vital Signs Date Time Temp Pulse Resp B/P (MAP) Pulse Ox O2 Delivery O2 Flow Rate FiO2 07/10/21 06:04 97.6 78 14 118/73 (88) 96 07/09/21 15:41 Room Air I & O 07/09/21 07/09/21 07/10/21 15:00 23:00 07:00 Intake Total 600 ml 400 ml 480 ml Balance 600 ml 400 ml 480 ml Labs: Laboratory Tests Test 07/09/21 08:10 White Blood Count 7.7 x10^3/uL (4.0-11.0) Red Blood Count 4.37 x10^6/uL (4.30-5.70) Hemoglobin 14.0 g/dL (13.0-17.5) Hematocrit 41.8 % (39.0-53.0) Mean Corpuscular Volume 96 fL (79-100) Mean Corpuscular Hemoglobin 32 pg (25-35) Mean Corpuscular Hemoglobin Concent 34 g/dL (31-37) Red Cell Distribution Width 14.3 % (11.5-14.5) Platelet Count 200 x10^3/uL (140-400) Neutrophils (%) (Auto) 77 % (31-73) H Lymphocytes (%) (Auto) 12 % (24-48) L Monocytes (%) (Auto) 7 % (0-9) Eosinophils (%) (Auto) 3 % (0-3) Basophils (%) (Auto) 1 % (0-3) Neutrophils # (Auto) 5.9 x10^3uL (1.8-7.7) Lymphocytes # (Auto) 0.9 x10^3/uL (1.0-4.8) L Monocytes # (Auto) 0.6 x10^3/uL (0.0-1.1) Eosinophils # (Auto) 0.2 x10^3/uL (0.0-0.7) Basophils # (Auto) 0.0 x10^3/uL (0.0-0.2) Sodium Level 139 mmol/L (136-145) Potassium Level 4.5 mmol/L (3.5-5.1) Chloride Level 105 mmol/L (98-107) Carbon Dioxide Level 26 mmol/L (21-32) Anion Gap 8 (6-14) Blood Urea Nitrogen 15 mg/dL (8-26) Creatinine 0.7 mg/dL (0.7-1.3) Estimated GFR (Cockcroft-Gault) 110.5 BUN/Creatinine Ratio 21 (6-20) H Glucose Level 85 mg/dL (70-99) Calcium Level 8.8 mg/dL (8.5-10.1) Total Bilirubin 0.5 mg/dL (0.2-1.0) Aspartate Amino Transferase (AST) 15 U/L (15-37) Alanine Aminotransferase (ALT) 9 U/L (16-63) L Alkaline Phosphatase 241 U/L (46-116) H Total Protein 6.8 g/dL (6.4-8.2) Albumin 3.6 g/dL (3.4-5.0) Albumin/Globulin Ratio 1.1 (1.0-1.7) Current Medications: I have reviewed the current psychotropics carefully including drug interactions. Risk benefit ratio favors no change other than as noted in my dictated progress note. Diagnosis: Problems: (1) Impulse control disorder, unspecified (2) Anxiety disorder, unspecified (3) Dementia, vascular, with depression (4) Dementia, vascular, with delusions (5) Dementia in Alzheimer's disease with depression (6) Dementia in Alzheimer's disease with delusions (7) Dementia of the Alzheimer's type with early onset with behavioral disturbance (8) Major neurocognitive disorder (9) Major depressive disorder, recurrent episode (10) Mild cognitive impairment MICHAEL MCKEON MD Jul 10, 2021 07:42
--- NOTE | 2021-07-10 08:24 | PDOC ---
Exam Note: Daren Note: This note is a late entry for 07/09/2021 covers elements not covered in my initial note. Subjective: The patient was seen on telehealth rounds with [facility] nursing misha on 07/09/2021, discussed and reviewed the chart with Eliot MATIAS. Per nursing report the patient slept well last night. He is sleeping well. He tends to fall a lot but no injuries noted. He was agitated in the evening. Received Zyprexa, then did better. Review of Systems: Ambulation impaired, in wheelchair. No CV, , pulmonary, eye system symptoms on review. Mental Status Exam: The patient is oriented reasonably. Speech coherent. Abstraction fair. Computation impaired. Language function intact. Mood and affect somewhat anxious. No suicidal or homicidal ideation. Laboratory Data: Reviewed. 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 Anxiety disorder unspecified. Impulse control disorder unspecified. Plan: Continue current psychotropics as clinically indicated. Assessment: Vital Signs/I&O: Vital Signs Date Time Temp Pulse Resp B/P (MAP) Pulse Ox O2 Delivery O2 Flow Rate FiO2 07/10/21 06:04 97.6 78 14 118/73 (88) 96 07/09/21 15:41 Room Air I & O 07/09/21 07/09/21 07/10/21 15:00 23:00 07:00 Intake Total 600 ml 400 ml 480 ml Balance 600 ml 400 ml 480 ml Current Medications: I have reviewed the current psychotropics carefully including drug interactions. Risk benefit ratio favors no change other than as noted in my dictated progress note. Diagnosis: Problems: (1) Impulse control disorder, unspecified (2) Anxiety disorder, unspecified (3) Dementia, vascular, with depression (4) Dementia, vascular, with delusions (5) Dementia in Alzheimer's disease with depression (6) Dementia in Alzheimer's disease with delusions (7) Dementia of the Alzheimer's type with early onset with behavioral dis turbance (8) Major neurocognitive disorder (9) Major depressive disorder, recurrent episode (10) Mild cognitive impairment MICHAEL MCKEON MD Jul 10, 2021 08:24
[2021-07-10 15:36] VITALS: BP 96/61
[2021-07-10] MEDS: ATORVASTATIN CALCIUM 10 MG TABLET. PO SCH (20:16)
[2021-07-10] MEDS: HYDROcodone/APAP 5/325MG 1 TAB TABLET PO PRN (20:20)
--- NOTE | 2021-07-10 22:01 | PDOC ---
Exam Note: Daren Note: Please also refer to the separate dictated note~for this date of service dictated separately.~Patient seen individually. Discussed the patient with Nursing staff reviewed the chart.~Reviewed interim history and current functioning. Reviewed vital signs,~Labs/ Radiology~and current medications noted below. Continue current treatment with the changes noted in the dictated addendum note Assessment: Vital Signs/I&O: Vital Signs Date Time Temp Pulse Resp B/P (MAP) Pulse Ox O2 Delivery O2 Flow Rate FiO2 07/10/21 20:20 18 Room Air 07/10/21 15:36 97.5 86 96/61 (73) 96 I & O 07/09/21 07/09/21 07/10/21 15:00 23:00 07:00 Intake Total 600 ml 400 ml 480 ml Balance 600 ml 400 ml 480 ml Current Medications: Meds: Current Medications Medications (Trade) Dose Ordered Sig/Daisy Route PRN Reason Start Time Stop Time Status Last Admin Dose Admin Acetaminophen (Tylenol) 650 mg PRN Q6HRS PRN PO MILD PAIN / TEMP > 100.3'F 05/11/21 16:15 06/26/21 04:07 Multi-Ingredient Ointment (Analgesic [place]) 1 eva PRN QID PRN TP MUSCLE PAIN 05/11/21 16:15 Al Hydroxide/Mg Hydroxide (Mylanta Plus Xs) 15 ml PRN AFTMEALHC PRN PO DYSPEPSIA 05/11/21 16:15 Magnesium Hydroxide (Milk Of Magnesia) 2,400 mg PRN QHS PRN PO CONSTIPATION 05/11/21 16:15 06/28/21 21:17 Nicotine (Nicoderm Cq 14mg Patch) 1 patch DAILY TD 05/12/21 09:00 05/30/21 17:27 DC 05/29/21 08:46 Ascorbic Acid (Vitamin C) 500 mg DAILY PO 05/12/21 09:00 07/10/21 07:34 Aspirin (Aspirin Chewable) 81 mg DAILY PO 05/12/21 09:00 07/10/21 07:35 Nicotine (Nicoderm Cq 14mg Patch) 1 patch DAILY TD 05/12/21 09:00 UNV Potassium Chloride (Klor-Con) 40 meq DAILY PO 05/12/21 09:00 07/10/21 07:36 Sennosides (Senna) 8.6 mg DAILY PO 05/12/21 09:00 07/10/21 07:34 Sertraline HCl (Zoloft) 125 mg DAILY PO 05/12/21 09:00 05/18/21 18:20 DC 05/18/21 08:59 Vitamin D (Vitamin D3) 1,000 unit DAILY PO 05/12/21 09:00 07/10/21 07:34 Cyanocobalamin (Vitamin B-12) 1,000 mcg [id number] PO 05/12/21 09:00 07/07/21 08:42 Polyethylene Glycol (miraLAX) 17 gm DAILY PO 05/12/21 09:00 07/10/21 07:36 Atorvastatin Calcium (Lipitor) 10 mg QHS PO 05/12/21 21:00 07/10/21 20:16 Quetiapine Fumarate (SEROquel) 25 mg PRN BID PRN PO AGITATION 05/12/21 07:15 05/19/21 19:14 DC 05/19/21 09:35 Divalproex Sodium (Depakote Sprinkles) 125 mg BID94 PO 05/12/21 09:00 05/12/21 16:01 DC 05/12/21 08:19 Ipratropium [place] (Atrovent Nasal) 1 spray BID NS 05/12/21 09:00 07/10/21 20:15 Divalproex Sodium (Depakote Sprinkles) 250 mg BID94 PO 05/12/21 16:00 05/16/21 18:09 DC 05/16/21 15:00 Cefdinir (Omnicef) 300 mg BID PO 05/14/21 21:00 05/20/21 22:00 DC 05/20/21 21:00 Lactobacillus Rhamnosus (Culturelle) 1 cap BID PO 05/14/21 21:00 07/10/21 20:16 Carbidopa/Levodopa (Sinemet 25/100) 1 tab TID PO 05/15/21 21:00 07/10/21 20:16 Divalproex Sodium (Depakote Sprinkles) 375 mg BID94 PO 05/17/21 09:00 05/27/21 19:14 DC 05/27/21 14:52 Sertraline HCl (Zoloft) 150 mg DAILY PO 05/19/21 09:00 06/01/21 11:53 DC 06/01/21 09:01 Quetiapine Fumarate (SEROquel) 25 mg 0900,1700 PO 05/20/21 09:00 05/23/21 18:17 DC 05/23/21 17:00 Olanzapine (ZyPREXA ZYDIS) 2.5 mg PRN Q2HR PRN PO PSYCHOSIS 05/20/21 10:00 07/09/21 18:14 Quetiapine Fumarate (SEROquel) 25 mg 0900,1300,1700 PO 05/24/21 09:00 05/25/21 11:57 DC 05/25/21 09:00 Quetiapine Fumarate (SEROquel) 25 mg 0900,1200,1500,1800 PO 05/25/21 12:00 07/10/21 17:43 Divalproex Sodium (Depakote Sprinkles) 500 mg BID94 PO 05/28/21 09:00 06/07/21 17:03 DC 06/07/21 08:54 Nicotine (Nicoderm Cq 7mg Patch) 1 patch DAILY TD 05/31/21 09:00 07/10/21 07:35 Sertraline HCl (Zoloft) 175 mg DAILY PO 06/02/21 09:00 07/01/21 21:36 DC 07/01/21 08:43 Divalproex Sodium (Depakote Sprinkles) 250 mg BID94 PO 06/08/21 09:00 06/07/21 17:07 DC Divalproex Sodium (Depakote Sprinkles) 250 mg BID94 PO 06/07/21 17:15 07/10/21 16:00 Artificial Tears (Artificial Tears) 1 drop PRN Q4HRS PRN OS DRY EYE 06/11/21 16:00 06/11/21 18:00 Acetaminophen/ Hydrocodone Bitart (Lortab 5/325) 1 tab PRN Q4HRS PRN PO MODERATE PAIN 4-6 06/26/21 06:00 07/10/21 20:20 Sertraline HCl (Zoloft) 200 mg DAILY PO 07/02/21 09:00 07/02/21 12:46 DC 07/02/21 08:28 Sertraline HCl (Zoloft) 200 mg DAILY PO 07/03/21 09:00 07/10/21 07:35 Levofloxacin (Levaquin) 500 mg DAILY06 PO 07/03/21 09:15 07/09/21 21:00 DC 07/09/21 08:47 I have reviewed the current psychotropics carefully including drug interactions. Risk benefit ratio favors no change other than as noted in my dictated progress note. Diagnosis: Problems: (1) Impulse control disorder, unspecified (2) Anxiety disorder, unspecified (3) Dementia, vascular, with depression (4) Dementia, vascular, with delusions (5) Dementia in Alzheimer's disease with depression (6) Dementia in Alzheimer's disease with delusions (7) Dementia of the Alzheimer's type with early onset with behavioral disturbance (8) Major neurocognitive disorder (9) Major depressive disorder, recurrent episode (10) Mild cognitive impairment MICHAEL MCKEON MD Jul 10, 2021 22:01
[2021-07-11 06:30] VITALS: BP 137/81
[2021-07-11] MEDS: ASCORBIC ACID 500 MG TABLET PO SCH (07:49)
[2021-07-11] MEDS: ASPIRIN CHEWABLE 81 MG TABLET. PO SCH (07:49)
[2021-07-11] MEDS: DIVALPROEX 125 MG CAP.SPRINK PO SCH ×2 (07:49→17:07)
[2021-07-11] MEDS: LACTOBACILLUS RHAMNOSUS GG 1 CAPSULE. PO SCH ×2 (07:49→19:44)
[2021-07-11] MEDS: SERTRALINE 100 MG TABLET. PO SCH (07:49)
[2021-07-11] MEDS: SENNOSIDES 8.6 MG TABLET PO SCH (07:49)
[2021-07-11] MEDS: NICOTINE 7MG PATCH. TD SCH ×2 (07:50→08:11)
[2021-07-11] MEDS: CHOLECALCIFEROL (VITAMIN D3) 1,000 UNIT TABLET PO SCH (07:50)
[2021-07-11] MEDS: CARBIDOPA/LEVODOPA 25/100MG TABLET PO SCH ×3 (07:50→19:44)
[2021-07-11] MEDS: POTASSIUM CHLORIDE 20 MEQ TABLET.ER. PO SCH (07:50)
[2021-07-11] MEDS: QUEtiapine 25 MG TABLET. PO SCH ×4 (07:50→17:08)
[2021-07-11] MEDS: POLYETHYLENE GLYCOL 3350 17 GM PACKET. PO SCH (07:51)
[2021-07-11] MEDS: IPRATROPIUM BROMIDE 0.06% NASAL SPRAY 15ML BOTTLE NS SCH ×2 (07:51→19:45)
[2021-07-11 15:33] VITALS: BP 112/76
[2021-07-11] MEDS: ATORVASTATIN CALCIUM 10 MG TABLET. PO SCH (19:44)
--- NOTE | 2021-07-11 21:55 | PDOC ---
Exam Note: Daren Note: Please also refer to the separate dictated note~for this date of service dictated separately.~Patient seen individually. Discussed the patient with Nursing staff reviewed the chart.~Reviewed interim history and current functioning. Reviewed vital signs,~Labs/ Radiology~and current medications noted below. Continue current treatment with the changes noted in the dictated addendum note Assessment: Vital Signs/I&O: Vital Signs Date Time Temp Pulse Resp B/P (MAP) Pulse Ox O2 Delivery O2 Flow Rate FiO2 07/11/21 15:33 98.5 83 20 112/76 (88) 97 07/10/21 20:50 Room Air I & O 07/10/21 07/10/21 07/11/21 15:00 23:00 07:00 Intake Total 840 ml 320 ml Balance 840 ml 320 ml Current Medications: Meds: Current Medications Medications (Trade) Dose Ordered Sig/Daisy Route PRN Reason Start Time Stop Time Status Last Admin Dose Admin Acetaminophen (Tylenol) 650 mg PRN Q6HRS PRN PO MILD PAIN / TEMP > 100.3'F 05/11/21 16:15 06/26/21 04:07 Multi-Ingredient Ointment (Analgesic [place]) 1 eva PRN QID PRN TP MUSCLE PAIN 05/11/21 16:15 Al Hydroxide/Mg Hydroxide (Mylanta Plus Xs) 15 ml PRN AFTMEALHC PRN PO DYSPEPSIA 05/11/21 16:15 Magnesium Hydroxide (Milk Of Magnesia) 2,400 mg PRN QHS PRN PO CONSTIPATION 05/11/21 16:15 06/28/21 21:17 Nicotine (Nicoderm Cq 14mg Patch) 1 patch DAILY TD 05/12/21 09:00 05/30/21 17:27 DC 05/29/21 08:46 Ascorbic Acid (Vitamin C) 500 mg DAILY PO 05/12/21 09:00 07/11/21 07:49 Aspirin (Aspirin Chewable) 81 mg DAILY PO 05/12/21 09:00 07/11/21 07:49 Nicotine (Nicoderm Cq 14mg Patch) 1 patch DAILY TD 05/12/21 09:00 UNV Potassium Chloride (Klor-Con) 40 meq DAILY PO 05/12/21 09:00 07/11/21 07:50 Sennosides (Senna) 8.6 mg DAILY PO 05/12/21 09:00 07/11/21 07:49 Sertraline HCl (Zoloft) 125 mg DAILY PO 05/12/21 09:00 05/18/21 18:20 DC 05/18/21 08:59 Vitamin D (Vitamin D3) 1,000 unit DAILY PO 05/12/21 09:00 07/11/21 07:50 Cyanocobalamin (Vitamin B-12) 1,000 mcg [id number] PO 05/12/21 09:00 07/07/21 08:42 Polyethylene Glycol (miraLAX) 17 gm DAILY PO 05/12/21 09:00 07/11/21 07:51 Atorvastatin Calcium (Lipitor) 10 mg QHS PO 05/12/21 21:00 07/11/21 19:44 Quetiapine Fumarate (SEROquel) 25 mg PRN BID PRN PO AGITATION 05/12/21 07:15 05/19/21 19:14 DC 05/19/21 09:35 Divalproex Sodium (Depakote Sprinkles) 125 mg BID94 PO 05/12/21 09:00 05/12/21 16:01 DC 05/12/21 08:19 Ipratropium [place] (Atrovent Nasal) 1 spray BID NS 05/12/21 09:00 07/11/21 19:45 Divalproex Sodium (Depakote Sprinkles) 250 mg BID94 PO 05/12/21 16:00 05/16/21 18:09 DC 05/16/21 15:00 Cefdinir (Omnicef) 300 mg BID PO 05/14/21 21:00 05/20/21 22:00 DC 05/20/21 21:00 Lactobacillus Rhamnosus (Culturelle) 1 cap BID PO 05/14/21 21:00 07/11/21 19:44 Carbidopa/Levodopa (Sinemet 25/100) 1 tab TID PO 05/15/21 21:00 07/11/21 19:44 Divalproex Sodium (Depakote Sprinkles) 375 mg BID94 PO 05/17/21 09:00 05/27/21 19:14 DC 05/27/21 14:52 Sertraline HCl (Zoloft) 150 mg DAILY PO 05/19/21 09:00 06/01/21 11:53 DC 06/01/21 09:01 Quetiapine Fumarate (SEROquel) 25 mg 0900,1700 PO 05/20/21 09:00 05/23/21 18:17 DC 05/23/21 17:00 Olanzapine (ZyPREXA ZYDIS) 2.5 mg PRN Q2HR PRN PO PSYCHOSIS 05/20/21 10:00 07/11/21 13:20 Quetiapine Fumarate (SEROquel) 25 mg 0900,1300,1700 PO 05/24/21 09:00 05/25/21 11:57 DC 05/25/21 09:00 Quetiapine Fumarate (SEROquel) 25 mg 0900,1200,1500,1800 PO 05/25/21 12:00 07/11/21 17:00 DC 07/11/21 14:52 Divalproex Sodium (Depakote Sprinkles) 500 mg BID94 PO 05/28/21 09:00 06/07/21 17:03 DC 06/07/21 08:54 Nicotine (Nicoderm Cq 7mg Patch) 1 patch DAILY TD 05/31/21 09:00 07/10/21 07:35 Sertraline HCl (Zoloft) 175 mg DAILY PO 06/02/21 09:00 07/01/21 21:36 DC 07/01/21 08:43 Divalproex Sodium (Depakote Sprinkles) 250 mg BID94 PO 06/08/21 09:00 06/07/21 17:07 DC Divalproex Sodium (Depakote Sprinkles) 250 mg BID94 PO 06/07/21 17:15 07/11/21 17:07 Artificial Tears (Artificial Tears) 1 drop PRN Q4HRS PRN OS DRY EYE 06/11/21 16:00 06/11/21 18:00 Acetaminophen/ Hydrocodone Bitart (Lortab 5/325) 1 tab PRN Q4HRS PRN PO MODERATE PAIN 4-6 06/26/21 06:00 07/10/21 20:20 Sertraline HCl (Zoloft) 200 mg DAILY PO 07/02/21 09:00 07/02/21 12:46 DC 07/02/21 08:28 Sertraline HCl (Zoloft) 200 mg DAILY PO 07/03/21 09:00 07/11/21 07:49 Levofloxacin (Levaquin) 500 mg DAILY06 PO 07/03/21 09:15 07/09/21 21:00 DC 07/09/21 08:47 Quetiapine Fumarate (SEROquel) 25 mg 0900,1800 PO 07/11/21 18:00 07/11/21 17:08 Quetiapine Fumarate (SEROquel) 37.5 mg 1200,1500 PO 07/12/21 12:00 Current Medications Medications (Trade) Dose Ordered Sig/Daisy Route PRN Reason Start Time Stop Time Status Last Admin Dose Admin Quetiapine Fumarate (SEROquel) 25 mg 0900,1800 PO 07/11/21 18:00 07/11/21 17:08 I have reviewed the current psychotropics carefully including drug interactions. Risk benefit ratio favors no change other than as noted in my dictated progress note. Diagnosis: Problems: (1) Impulse control disorder, unspecified (2) Anxiety disorder, unspecified (3) Dementia, vascular, with depression (4) Dementia, vascular, with delusions (5) Dementia in Alzheimer's disease with depression (6) Dementia in Alzheimer's disease with delusions (7) Dementia of the Alzheimer's type with early onset with behavioral disturbance (8) Major neurocognitive disorder (9) Major depressive disorder, recurrent episode MICHAEL MCKEON MD Jul 11, 2021 21:55
[2021-07-12 06:23] VITALS: BP 134/72
[2021-07-12] MEDS: ASPIRIN CHEWABLE 81 MG TABLET. PO SCH (08:34)
[2021-07-12] MEDS: POLYETHYLENE GLYCOL 3350 17 GM PACKET. PO SCH (08:34)
[2021-07-12] MEDS: QUEtiapine 25 MG TABLET. PO SCH ×4 (08:34→17:09)
[2021-07-12] MEDS: POTASSIUM CHLORIDE 20 MEQ TABLET.ER. PO SCH (08:34)
[2021-07-12] MEDS: IPRATROPIUM BROMIDE 0.06% NASAL SPRAY 15ML BOTTLE NS SCH ×2 (08:34→20:48)
[2021-07-12] MEDS: LACTOBACILLUS RHAMNOSUS GG 1 CAPSULE. PO SCH ×2 (08:34→20:47)
[2021-07-12] MEDS: DIVALPROEX 125 MG CAP.SPRINK PO SCH ×2 (08:34→17:08)
[2021-07-12] MEDS: SENNOSIDES 8.6 MG TABLET PO SCH (08:34)
[2021-07-12] MEDS: SERTRALINE 100 MG TABLET. PO SCH (08:35)
[2021-07-12] MEDS: CARBIDOPA/LEVODOPA 25/100MG TABLET PO SCH ×3 (08:35→20:47)
[2021-07-12] MEDS: NICOTINE 7MG PATCH. TD SCH (08:35)
[2021-07-12] MEDS: ASCORBIC ACID 500 MG TABLET PO SCH (08:35)
[2021-07-12] MEDS: CHOLECALCIFEROL (VITAMIN D3) 1,000 UNIT TABLET PO SCH (09:00)
--- NOTE | 2021-07-12 09:30 | PDOC ---
Exam Note: Daren Note: This note is a late entry for 07/10/2021 covers elements not covered in my initial note. Subjective: The patient was seen individually on 07/10/2021, discussed and reviewed the chart with Hui MATIAS. The patient slept 8-1/2 hours previous night. I met with him in his room. He remains somewhat withdrawn, tries to transfer himself from wheelchair to bed, then on the bathroom toilet and I addressed this with him at some length not to do this and to ask for nursing help. Review of Systems: Ambulation impaired, in wheelchair. No CV, , pulmonary, eye system symptoms on review. Mental Status Exam: The patient is oriented reasonably. Speech coherent. Abstraction fair. Computation impaired. Language function intact. Mood and affect somewhat anxious. No suicidal or homicidal ideation. Laboratory Data: Reviewed. 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 Anxiety disorder unspecified. Impulse control disorder unspecified. Plan: Continue current psychotropics. Reviewed drug interactions, risk-benefit ratio. Adjust further as clinically indicated. Assessment: Vital Signs/I&O: Vital Signs Date Time Temp Pulse Resp B/P (MAP) Pulse Ox O2 Delivery O2 Flow Rate FiO2 07/12/21 06:23 97.8 76 18 134/72 (92) 98 07/10/21 20:50 Room Air I & O 07/11/21 07/11/21 07/12/21 15:00 23:00 07:00 Intake Total 720 ml 720 ml Balance 720 ml 720 ml Current Medications: Meds: Current Medications Medications (Trade) Dose Ordered Sig/Daisy Route PRN Reason Start Time Stop Time Status Last Admin Dose Admin Quetiapine Fumarate (SEROquel) 25 mg 0900,1800 PO 07/11/21 18:00 07/12/21 08:34 I have reviewed the current psychotropics carefully including drug interactions. Risk benefit ratio favors no change other than as noted in my dictated progress note. Diagnosis: Problems: (1) Impulse control disorder, unspecified (2) Anxiety disorder, unspecified (3) Dementia, vascular, with depression (4) Dementia, vascular, with delusions (5) Dementia in Alzheimer's disease with depression (6) Dementia in Alzheimer's disease with delusions (7) Dementia of the Alzheimer's type with early onset with behavioral disturbance (8) Major neurocognitive disorder (9) Major depressive disorder, recurrent episode (10) Mild cognitive impairment MICHAEL MCKEON MD Jul 12, 2021 09:30
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
[2021-07-12 15:52] VITALS: BP 105/65
[2021-07-12] MEDS: ATORVASTATIN CALCIUM 10 MG TABLET. PO SCH (20:48)
--- NOTE | 2021-07-12 22:10 | PDOC ---
Exam Note: Daren Note: Please also refer to the separate dictated note~for this date of service dictated separately.~Patient seen individually. Discussed the patient with Nursing staff reviewed the chart.~Reviewed interim history and current functioning. Reviewed vital signs,~Labs/ Radiology~and current medications noted below. Continue current treatment with the changes noted in the dictated addendum note Assessment: Vital Signs/I&O: Vital Signs Date Time Temp Pulse Resp B/P (MAP) Pulse Ox O2 Delivery O2 Flow Rate FiO2 07/12/21 15:52 98.2 86 20 105/65 (78) 97 07/10/21 20:50 Room Air I & O 07/11/21 07/11/21 07/12/21 15:00 23:00 07:00 Intake Total 720 ml 720 ml Balance 720 ml 720 ml Current Medications: Meds: Current Medications Medications (Trade) Dose Ordered Sig/Daisy Route PRN Reason Start Time Stop Time Status Last Admin Dose Admin Acetaminophen (Tylenol) 650 mg PRN Q6HRS PRN PO MILD PAIN / TEMP > 100.3'F 05/11/21 16:15 06/26/21 04:07 Multi-Ingredient Ointment (Analgesic [place]) 1 eva PRN QID PRN TP MUSCLE PAIN 05/11/21 16:15 Al Hydroxide/Mg Hydroxide (Mylanta Plus Xs) 15 ml PRN AFTMEALHC PRN PO DYSPEPSIA 05/11/21 16:15 Magnesium Hydroxide (Milk Of Magnesia) 2,400 mg PRN QHS PRN PO CONSTIPATION 05/11/21 16:15 06/28/21 21:17 Nicotine (Nicoderm Cq 14mg Patch) 1 patch DAILY TD 05/12/21 09:00 05/30/21 17:27 DC 05/29/21 08:46 Ascorbic Acid (Vitamin C) 500 mg DAILY PO 05/12/21 09:00 07/12/21 08:35 Aspirin (Aspirin Chewable) 81 mg DAILY PO 05/12/21 09:00 07/12/21 08:34 Nicotine (Nicoderm Cq 14mg Patch) 1 patch DAILY TD 05/12/21 09:00 UNV Potassium Chloride (Klor-Con) 40 meq DAILY PO 05/12/21 09:00 07/12/21 08:34 Sennosides (Senna) 8.6 mg DAILY PO 05/12/21 09:00 07/12/21 08:34 Sertraline HCl (Zoloft) 125 mg DAILY PO 05/12/21 09:00 05/18/21 18:20 DC 05/18/21 08:59 Vitamin D (Vitamin D3) 1,000 unit DAILY PO 05/12/21 09:00 07/12/21 09:00 Cyanocobalamin (Vitamin B-12) 1,000 mcg [id number] PO 05/12/21 09:00 07/07/21 08:42 Polyethylene Glycol (miraLAX) 17 gm DAILY PO 05/12/21 09:00 07/12/21 08:34 Atorvastatin Calcium (Lipitor) 10 mg QHS PO 05/12/21 21:00 07/12/21 20:48 Quetiapine Fumarate (SEROquel) 25 mg PRN BID PRN PO AGITATION 05/12/21 07:15 05/19/21 19:14 DC 05/19/21 09:35 Divalproex Sodium (Depakote Sprinkles) 125 mg BID94 PO 05/12/21 09:00 05/12/21 16:01 DC 05/12/21 08:19 Ipratropium [place] (Atrovent Nasal) 1 spray BID NS 05/12/21 09:00 07/12/21 08:34 Divalproex Sodium (Depakote Sprinkles) 250 mg BID94 PO 05/12/21 16:00 05/16/21 18:09 DC 05/16/21 15:00 Cefdinir (Omnicef) 300 mg BID PO 05/14/21 21:00 05/20/21 22:00 DC 05/20/21 21:00 Lactobacillus Rhamnosus (Culturelle) 1 cap BID PO 05/14/21 21:00 07/12/21 20:47 Carbidopa/Levodopa (Sinemet 25/100) 1 tab TID PO 05/15/21 21:00 07/12/21 20:47 Divalproex Sodium (Depakote Sprinkles) 375 mg BID94 PO 05/17/21 09:00 05/27/21 19:14 DC 05/27/21 14:52 Sertraline HCl (Zoloft) 150 mg DAILY PO 05/19/21 09:00 06/01/21 11:53 DC 06/01/21 09:01 Quetiapine Fumarate (SEROquel) 25 mg 0900,1700 PO 05/20/21 09:00 05/23/21 18:17 DC 05/23/21 17:00 Olanzapine (ZyPREXA ZYDIS) 2.5 mg PRN Q2HR PRN PO PSYCHOSIS 05/20/21 10:00 07/11/21 13:20 Quetiapine Fumarate (SEROquel) 25 mg 0900,1300,1700 PO 05/24/21 09:00 05/25/21 11:57 DC 05/25/21 09:00 Quetiapine Fumarate (SEROquel) 25 mg 0900,1200,1500,1800 PO 05/25/21 12:00 07/11/21 17:00 DC 07/11/21 14:52 Divalproex Sodium (Depakote Sprinkles) 500 mg BID94 PO 05/28/21 09:00 06/07/21 17:03 DC 06/07/21 08:54 Nicotine (Nicoderm Cq 7mg Patch) 1 patch DAILY TD 05/31/21 09:00 07/12/21 08:35 Sertraline HCl (Zoloft) 175 mg DAILY PO 06/02/21 09:00 07/01/21 21:36 DC 07/01/21 08:43 Divalproex Sodium (Depakote Sprinkles) 250 mg BID94 PO 06/08/21 09:00 06/07/21 17:07 DC Divalproex Sodium (Depakote Sprinkles) 250 mg BID94 PO 06/07/21 17:15 07/12/21 17:08 Artificial Tears (Artificial Tears) 1 drop PRN Q4HRS PRN OS DRY EYE 06/11/21 16:00 06/11/21 18:00 Acetaminophen/ Hydrocodone Bitart (Lortab 5/325) 1 tab PRN Q4HRS PRN PO MODERATE PAIN 4-6 06/26/21 06:00 07/10/21 20:20 Sertraline HCl (Zoloft) 200 mg DAILY PO 07/02/21 09:00 07/02/21 12:46 DC 07/02/21 08:28 Sertraline HCl (Zoloft) 200 mg DAILY PO 07/03/21 09:00 07/12/21 08:35 Levofloxacin (Levaquin) 500 mg DAILY06 PO 07/03/21 09:15 07/09/21 21:00 DC 07/09/21 08:47 Quetiapine Fumarate (SEROquel) 25 mg 0900,1800 PO 07/11/21 18:00 07/12/21 17:09 Quetiapine Fumarate (SEROquel) 37.5 mg 1200,1500 PO 07/12/21 12:00 07/12/21 15:00 Current Medications Medications (Trade) Dose Ordered Sig/Daisy Route PRN Reason Start Time Stop Time Status Last Admin Dose Admin Quetiapine Fumarate (SEROquel) 37.5 mg 1200,1500 PO 07/12/21 12:00 07/12/21 15:00 I have reviewed the current psychotropics carefully including drug interactions. Risk benefit ratio favors no change other than as noted in my dictated progress note. Diagnosis: Problems: (1) Impulse control disorder, unspecified (2) Anxiety disorder, unspecified (3) Dementia, vascular, with depression (4) Dementia, vascular, with delusions (5) Dementia in Alzheimer's disease with depression (6) Dementia in Alzheimer's disease with delusions (7) Dementia of the Alzheimer's type with early onset with behavioral disturbance (8) Major neurocognitive disorder (9) Major depressive disorder, recurrent episode MICHAEL MCKEON MD Jul 12, 2021 22:10
[2021-07-13 06:20] VITALS: BP 141/78
[2021-07-13] MEDS: POLYETHYLENE GLYCOL 3350 17 GM PACKET. PO SCH (08:25)
[2021-07-13] MEDS: IPRATROPIUM BROMIDE 0.06% NASAL SPRAY 15ML BOTTLE NS SCH ×2 (08:25→20:11)
[2021-07-13] MEDS: ASCORBIC ACID 500 MG TABLET PO SCH (08:26)
[2021-07-13] MEDS: SERTRALINE 100 MG TABLET. PO SCH (08:26)
[2021-07-13] MEDS: NICOTINE 7MG PATCH. TD SCH (08:26)
[2021-07-13] MEDS: POTASSIUM CHLORIDE 20 MEQ TABLET.ER. PO SCH (08:26)
[2021-07-13] MEDS: SENNOSIDES 8.6 MG TABLET PO SCH (08:26)
[2021-07-13] MEDS: ASPIRIN CHEWABLE 81 MG TABLET. PO SCH (08:27)
[2021-07-13] MEDS: DIVALPROEX 125 MG CAP.SPRINK PO SCH ×2 (08:27→17:17)
[2021-07-13] MEDS: CHOLECALCIFEROL (VITAMIN D3) 1,000 UNIT TABLET PO SCH (08:27)
[2021-07-13] MEDS: QUEtiapine 25 MG TABLET. PO SCH ×4 (08:27→17:18)
[2021-07-13] MEDS: LACTOBACILLUS RHAMNOSUS GG 1 CAPSULE. PO SCH ×2 (08:27→20:09)
[2021-07-13] MEDS: CARBIDOPA/LEVODOPA 25/100MG TABLET PO SCH ×3 (08:27→20:09)
--- NOTE | 2021-07-13 15:44 | TX PLAN ---
Interdisciplinary Tx Plan Admission Information May 11, 2021 at 14:29 Legal Status (on Admission): Voluntary DPOA/Guardian Name: Milvia patel Contact Other Contact Name: Mercedes LUND Other Contact Verified Code Status: Full Code Allergies: Coded Allergies: No Known Drug Allergies (Unverified , 02/17/20) Diagnoses Primary Diagnosis: Dementia, Vascular with Depression and BD Reasons for Admission: Depressed, Suicidal attempt, Poor impulse control Problem in Patient's Words: Concerned that he may need a higher level of care Additional Admission Comments: According to the intake, pt has acute suicidal ideations, attempted to drown himself in a pond, depressed, poor intake and refusing meds. Eloped from the facility, aggressive when doesn't want to do something Problems Active Problems: Withdrawn Inactive Problems: Medication complaint Pt Strengths/Limitations Ability for [place]: Poor Cognitive Functioning/Ability: Fair Communication Skills/Ability: Fair Financial Resources: Fair Insight/Judgement: Poor Intellectual Ability: Fair Physical Health: Poor Social Skills: Fair Stability in Family: Fair Stability in School/Work: Poor Verbal Skills: Fair Discharge Criteria Discharge Criteria: No need for close observ., Adequate arrangements @DC, Improved behavior, Improved mood/thought Preliminary Discharge Plan Preliminary DC Plan: Current Living Arrange. Special Precautions Fall Risk: Moderate Initial D/C Plan Pt to return to [facility] once stable. Identified Discharge Needs: Psychiatric care needs Currently Utilized Resources Currently Utilized Resources/P: Services through the [facility] Identified Problems/Hx/Goals Objectives/Short-Term Goals Short Term Goals: No Suicidal/Serjio. ideation Short Term Goals in Patient's: N/A Interventions/Frequency Staff Interventions/Frequency&: Psychiatrist to assess pt at least 3x per week for medication management. Social Work to assess pt at least 2x per week to identify barriers to care and discharge planning. Nursing to assess medication effects, behavior modification and completion of 15 minute checks. Encourage participation in group activities (if applicable) or 1:1 engagement based off activity dept goals. History Vocational History: Pt worked for the [employer] for the [employer] for many years. Retired due to "not liking people". 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 Pt is medication compliant and mostly compliant with cares. Pt does like to be in bed most days and needs encouragement to be out of his room and interactive. Pt does have placement at the [facility]; pt dtr is working out logistics and will contact with final discharge plans come Saturday. CHAVA JIANG Jul 13, 2021 15:44
[2021-07-13 17:08] VITALS: BP 131/57
[2021-07-13] MEDS: ATORVASTATIN CALCIUM 10 MG TABLET. PO SCH (20:09)
--- NOTE | 2021-07-13 22:10 | PDOC ---
Exam Note: Daren Note: Please also refer to the separate dictated note~for this date of service dictated separately.~Patient seen individually. Discussed the patient with Nursing staff reviewed the chart.~Reviewed interim history and current functioning. Reviewed vital signs,~Labs/ Radiology~and current medications noted below. Continue current treatment with the changes noted in the dictated addendum note Assessment: Vital Signs/I&O: Vital Signs Date Time Temp Pulse Resp B/P (MAP) Pulse Ox O2 Delivery O2 Flow Rate FiO2 07/13/21 17:08 97.7 85 18 131/57 (81) 96 07/10/21 20:50 Room Air I & O 07/12/21 07/12/21 07/13/21 15:00 23:00 07:00 Intake Total 1140 ml 600 ml Balance 1140 ml 600 ml Current Medications: Meds: Current Medications Medications (Trade) Dose Ordered Sig/Daisy Route PRN Reason Start Time Stop Time Status Last Admin Dose Admin Acetaminophen (Tylenol) 650 mg PRN Q6HRS PRN PO MILD PAIN / TEMP > 100.3'F 05/11/21 16:15 06/26/21 04:07 Multi-Ingredient Ointment (Analgesic [place]) 1 eva PRN QID PRN TP MUSCLE PAIN 05/11/21 16:15 Al Hydroxide/Mg Hydroxide (Mylanta Plus Xs) 15 ml PRN AFTMEALHC PRN PO DYSPEPSIA 05/11/21 16:15 Magnesium Hydroxide (Milk Of Magnesia) 2,400 mg PRN QHS PRN PO CONSTIPATION 05/11/21 16:15 06/28/21 21:17 Nicotine (Nicoderm Cq 14mg Patch) 1 patch DAILY TD 05/12/21 09:00 05/30/21 17:27 DC 05/29/21 08:46 Ascorbic Acid (Vitamin C) 500 mg DAILY PO 05/12/21 09:00 07/13/21 08:26 Aspirin (Aspirin Chewable) 81 mg DAILY PO 05/12/21 09:00 07/13/21 08:27 Nicotine (Nicoderm Cq 14mg Patch) 1 patch DAILY TD 05/12/21 09:00 UNV Potassium Chloride (Klor-Con) 40 meq DAILY PO 05/12/21 09:00 07/13/21 08:26 Sennosides (Senna) 8.6 mg DAILY PO 05/12/21 09:00 07/13/21 08:26 Sertraline HCl (Zoloft) 125 mg DAILY PO 05/12/21 09:00 05/18/21 18:20 DC 05/18/21 08:59 Vitamin D (Vitamin D3) 1,000 unit DAILY PO 05/12/21 09:00 07/13/21 08:27 Cyanocobalamin (Vitamin B-12) 1,000 mcg [id number] PO 05/12/21 09:00 07/07/21 08:42 Polyethylene Glycol (miraLAX) 17 gm DAILY PO 05/12/21 09:00 07/13/21 08:25 Atorvastatin Calcium (Lipitor) 10 mg QHS PO 05/12/21 21:00 07/13/21 20:09 Quetiapine Fumarate (SEROquel) 25 mg PRN BID PRN PO AGITATION 05/12/21 07:15 05/19/21 19:14 DC 05/19/21 09:35 Divalproex Sodium (Depakote Sprinkles) 125 mg [id number] PO 05/12/21 09:00 05/12/21 16:01 DC 05/12/21 08:19 Ipratropium [place] (Atrovent Nasal) 1 spray BID NS 05/12/21 09:00 07/13/21 20:11 Divalproex Sodium (Depakote Sprinkles) 250 mg BID94 PO 05/12/21 16:00 05/16/21 18:09 DC 05/16/21 15:00 Cefdinir (Omnicef) 300 mg BID PO 05/14/21 21:00 05/20/21 22:00 DC 05/20/21 21:00 Lactobacillus Rhamnosus (Culturelle) 1 cap BID PO 05/14/21 21:00 07/13/21 20:09 Carbidopa/Levodopa (Sinemet 25/100) 1 tab TID PO 05/15/21 21:00 07/13/21 20:09 Divalproex Sodium (Depakote Sprinkles) 375 mg BID94 PO 05/17/21 09:00 05/27/21 19:14 DC 05/27/21 14:52 Sertraline HCl (Zoloft) 150 mg DAILY PO 05/19/21 09:00 06/01/21 11:53 DC 06/01/21 09:01 Quetiapine Fumarate (SEROquel) 25 mg 0900,1700 PO 05/20/21 09:00 05/23/21 18:17 DC 05/23/21 17:00 Olanzapine (ZyPREXA ZYDIS) 2.5 mg PRN Q2HR PRN PO PSYCHOSIS 05/20/21 10:00 07/11/21 13:20 Quetiapine Fumarate (SEROquel) 25 mg 0900,1300,1700 PO 05/24/21 09:00 05/25/21 11:57 DC 05/25/21 09:00 Quetiapine Fumarate (SEROquel) 25 mg 0900,1200,1500,1800 PO 05/25/21 12:00 07/11/21 17:00 DC 07/11/21 14:52 Divalproex Sodium (Depakote Sprinkles) 500 mg BID94 PO 05/28/21 09:00 06/07/21 17:03 DC 06/07/21 08:54 Nicotine (Nicoderm Cq 7mg Patch) 1 patch DAILY TD 05/31/21 09:00 07/13/21 08:26 Sertraline HCl (Zoloft) 175 mg DAILY PO 06/02/21 09:00 07/01/21 21:36 DC 07/01/21 08:43 Divalproex Sodium (Depakote Sprinkles) 250 mg BID94 PO 06/08/21 09:00 06/07/21 17:07 DC Divalproex Sodium (Depakote Sprinkles) 250 mg BID94 PO 06/07/21 17:15 07/13/21 17:17 Artificial Tears (Artificial Tears) 1 drop PRN Q4HRS PRN OS DRY EYE 06/11/21 16:00 06/11/21 18:00 Acetaminophen/ Hydrocodone Bitart (Lortab 5/325) 1 tab PRN Q4HRS PRN PO MODERATE PAIN 4-6 06/26/21 06:00 07/10/21 20:20 Sertraline HCl (Zoloft) 200 mg DAILY PO 07/02/21 09:00 07/02/21 12:46 DC 07/02/21 08:28 Sertraline HCl (Zoloft) 200 mg DAILY PO 07/03/21 09:00 07/13/21 08:26 Levofloxacin (Levaquin) 500 mg DAILY06 PO 07/03/21 09:15 07/09/21 21:00 DC 07/09/21 08:47 Quetiapine Fumarate (SEROquel) 25 mg 0900,1800 PO 07/11/21 18:00 07/13/21 17:18 Quetiapine Fumarate (SEROquel) 37.5 mg 1200,1500 PO 07/12/21 12:00 07/13/21 14:42 I have reviewed the current psychotropics carefully including drug interactions. Risk benefit ratio favors no change other than as noted in my dictated progress note. Diagnosis: Problems: (1) Impulse control disorder, unspecified (2) Anxiety disorder, unspecified (3) Dementia, vascular, with depression (4) Dementia, vascular, with delusions (5) Dementia in Alzheimer's disease with depression (6) Dementia in Alzheimer's disease with delusions (7) Dementia of the Alzheimer's type with early onset with behavioral disturbance (8) Major neurocognitive disorder (9) Major depressive disorder, recurrent episode MICHAEL MCKEON MD Jul 13, 2021 22:10
[2021-07-14 06:23] VITALS: BP 167/86
[2021-07-14] MEDS: LACTOBACILLUS RHAMNOSUS GG 1 CAPSULE. PO SCH ×2 (08:32→20:07)
[2021-07-14] MEDS: DIVALPROEX 125 MG CAP.SPRINK PO SCH ×2 (08:32→15:30)
[2021-07-14] MEDS: QUEtiapine 25 MG TABLET. PO SCH ×4 (08:32→17:28)
[2021-07-14] MEDS: CARBIDOPA/LEVODOPA 25/100MG TABLET PO SCH ×3 (08:32→20:07)
[2021-07-14] MEDS: POTASSIUM CHLORIDE 20 MEQ TABLET.ER. PO SCH (08:33)
[2021-07-14] MEDS: IPRATROPIUM BROMIDE 0.06% NASAL SPRAY 15ML BOTTLE NS SCH ×2 (08:33→20:07)
[2021-07-14] MEDS: SENNOSIDES 8.6 MG TABLET PO SCH (08:33)
[2021-07-14] MEDS: ASPIRIN CHEWABLE 81 MG TABLET. PO SCH (08:33)
[2021-07-14] MEDS: ASCORBIC ACID 500 MG TABLET PO SCH (08:33)
[2021-07-14] MEDS: CHOLECALCIFEROL (VITAMIN D3) 1,000 UNIT TABLET PO SCH (08:33)
[2021-07-14] MEDS: SERTRALINE 100 MG TABLET. PO SCH (08:33)
[2021-07-14] MEDS: NICOTINE 7MG PATCH. TD SCH (08:33)
[2021-07-14] MEDS: POLYETHYLENE GLYCOL 3350 17 GM PACKET. PO SCH (08:39)
[2021-07-14 16:09] VITALS: BP 114/70
[2021-07-14] MEDS: ATORVASTATIN CALCIUM 10 MG TABLET. PO SCH (20:07)
--- NOTE | 2021-07-14 22:09 | PDOC ---
Exam Note: Daren Note: Please also refer to the separate dictated note~for this date of service dictated separately.~Patient seen individually. Discussed the patient with Nursing staff reviewed the chart.~Reviewed interim history and current functioning. Reviewed vital signs,~Labs/ Radiology~and current medications noted below. Continue current treatment with the changes noted in the dictated addendum note Assessment: Vital Signs/I&O: Vital Signs Date Time Temp Pulse Resp B/P (MAP) Pulse Ox O2 Delivery O2 Flow Rate FiO2 07/14/21 16:09 98.0 79 18 114/70 (85) 95 07/14/21 06:23 Room Air I & O 07/13/21 07/13/21 07/14/21 14:59 22:59 06:59 Intake Total 480 ml 600 ml Balance 480 ml 600 ml Current Medications: Meds: Current Medications Medications (Trade) Dose Ordered Sig/Daisy Route PRN Reason Start Time Stop Time Status Last Admin Dose Admin Acetaminophen (Tylenol) 650 mg PRN Q6HRS PRN PO MILD PAIN / TEMP > 100.3'F 05/11/21 16:15 06/26/21 04:07 Multi-Ingredient Ointment (Analgesic [place]) 1 eva PRN QID PRN TP MUSCLE PAIN 05/11/21 16:15 Al Hydroxide/Mg Hydroxide (Mylanta Plus Xs) 15 ml PRN AFTMEALHC PRN PO DYSPEPSIA 05/11/21 16:15 Magnesium Hydroxide (Milk Of Magnesia) 2,400 mg PRN QHS PRN PO CONSTIPATION 05/11/21 16:15 06/28/21 21:17 Nicotine (Nicoderm Cq 14mg Patch) 1 patch DAILY TD 05/12/21 09:00 05/30/21 17:27 DC 05/29/21 08:46 Ascorbic Acid (Vitamin C) 500 mg DAILY PO 05/12/21 09:00 07/14/21 08:33 Aspirin (Aspirin Chewable) 81 mg DAILY PO 05/12/21 09:00 07/14/21 08:33 Nicotine (Nicoderm Cq 14mg Patch) 1 patch DAILY TD 05/12/21 09:00 UNV Potassium Chloride (Klor-Con) 40 meq DAILY PO 05/12/21 09:00 07/14/21 08:33 Sennosides (Senna) 8.6 mg DAILY PO 05/12/21 09:00 07/14/21 08:33 Sertraline HCl (Zoloft) 125 mg DAILY PO 05/12/21 09:00 05/18/21 18:20 DC 05/18/21 08:59 Vitamin D (Vitamin D3) 1,000 unit DAILY PO 05/12/21 09:00 07/14/21 08:33 Cyanocobalamin (Vitamin B-12) 1,000 mcg [id number] PO 05/12/21 09:00 07/07/21 08:42 Polyethylene Glycol (miraLAX) 17 gm DAILY PO 05/12/21 09:00 07/14/21 08:39 Atorvastatin Calcium (Lipitor) 10 mg QHS PO 05/12/21 21:00 07/14/21 20:07 Quetiapine Fumarate (SEROquel) 25 mg PRN BID PRN PO AGITATION 05/12/21 07:15 05/19/21 19:14 DC 05/19/21 09:35 Divalproex Sodium (Depakote Sprinkles) 125 mg BID94 PO 05/12/21 09:00 05/12/21 16:01 DC 05/12/21 08:19 Ipratropium [place] (Atrovent Nasal) 1 spray BID NS 05/12/21 09:00 07/14/21 20:07 Divalproex Sodium (Depakote Sprinkles) 250 mg BID94 PO 05/12/21 16:00 05/16/21 18:09 DC 05/16/21 15:00 Cefdinir (Omnicef) 300 mg BID PO 05/14/21 21:00 05/20/21 22:00 DC 05/20/21 21:00 Lactobacillus Rhamnosus (Culturelle) 1 cap BID PO 05/14/21 21:00 07/14/21 20:07 Carbidopa/Levodopa (Sinemet 25/100) 1 tab TID PO 05/15/21 21:00 07/14/21 20:07 Divalproex Sodium (Depakote Sprinkles) 375 mg BID94 PO 05/17/21 09:00 05/27/21 19:14 DC 05/27/21 14:52 Sertraline HCl (Zoloft) 150 mg DAILY PO 05/19/21 09:00 06/01/21 11:53 DC 06/01/21 09:01 Quetiapine Fumarate (SEROquel) 25 mg 0900,1700 PO 05/20/21 09:00 05/23/21 18:17 DC 05/23/21 17:00 Olanzapine (ZyPREXA ZYDIS) 2.5 mg PRN Q2HR PRN PO PSYCHOSIS 05/20/21 10:00 07/11/21 13:20 Quetiapine Fumarate (SEROquel) 25 mg 0900,1300,1700 PO 05/24/21 09:00 05/25/21 11:57 DC 05/25/21 09:00 Quetiapine Fumarate (SEROquel) 25 mg 0900,1200,1500,1800 PO 05/25/21 12:00 07/11/21 17:00 DC 07/11/21 14:52 Divalproex Sodium (Depakote Sprinkles) 500 mg BID94 PO 05/28/21 09:00 06/07/21 17:03 DC 06/07/21 08:54 Nicotine (Nicoderm Cq 7mg Patch) 1 patch DAILY TD 05/31/21 09:00 07/14/21 08:33 Sertraline HCl (Zoloft) 175 mg DAILY PO 06/02/21 09:00 07/01/21 21:36 DC 07/01/21 08:43 Divalproex Sodium (Depakote Sprinkles) 250 mg BID94 PO 06/08/21 09:00 06/07/21 17:07 DC Divalproex Sodium (Depakote Sprinkles) 250 mg BID94 PO 06/07/21 17:15 07/14/21 15:30 Artificial Tears (Artificial Tears) 1 drop PRN Q4HRS PRN OS DRY EYE 06/11/21 16:00 06/11/21 18:00 Acetaminophen/ Hydrocodone Bitart (Lortab 5/325) 1 tab PRN Q4HRS PRN PO MODERATE PAIN 4-6 06/26/21 06:00 07/10/21 20:20 Sertraline HCl (Zoloft) 200 mg DAILY PO 07/02/21 09:00 07/02/21 12:46 DC 07/02/21 08:28 Sertraline HCl (Zoloft) 200 mg DAILY PO 07/03/21 09:00 07/14/21 08:33 Levofloxacin (Levaquin) 500 mg DAILY06 PO 07/03/21 09:15 07/09/21 21:00 DC 07/09/21 08:47 Quetiapine Fumarate (SEROquel) 25 mg 0900,1800 PO 07/11/21 18:00 07/14/21 17:28 Quetiapine Fumarate (SEROquel) 37.5 mg 1200,1500 PO 07/12/21 12:00 07/14/21 15:30 I have reviewed the current psychotropics carefully including drug interactions. Risk benefit ratio favors no change other than as noted in my dictated progress note. Diagnosis: Problems: (1) Impulse control disorder, unspecified (2) Anxiety disorder, unspecified (3) Dementia, vascular, with depression (4) Dementia, vascular, with delusions (5) Dementia in Alzheimer's disease with depression (6) Dementia in Alzheimer's disease with delusions (7) Dementia of the Alzheimer's type with early onset with behavioral disturbance (8) Major neurocognitive disorder (9) Major depressive disorder, recurrent episode MICHAEL MCKEON MD Jul 14, 2021 22:09
[2021-07-15 06:14] VITALS: BP 131/79
[2021-07-15] MEDS: ASPIRIN CHEWABLE 81 MG TABLET. PO SCH (07:51)
[2021-07-15] MEDS: CARBIDOPA/LEVODOPA 25/100MG TABLET PO SCH ×3 (07:51→20:26)
[2021-07-15] MEDS: QUEtiapine 25 MG TABLET. PO SCH ×4 (07:51→16:44)
[2021-07-15] MEDS: ASCORBIC ACID 500 MG TABLET PO SCH (07:51)
[2021-07-15] MEDS: CHOLECALCIFEROL (VITAMIN D3) 1,000 UNIT TABLET PO SCH (07:51)
[2021-07-15] MEDS: DIVALPROEX 125 MG CAP.SPRINK PO SCH ×2 (07:51→16:44)
[2021-07-15] MEDS: SERTRALINE 100 MG TABLET. PO SCH (07:52)
[2021-07-15] MEDS: LACTOBACILLUS RHAMNOSUS GG 1 CAPSULE. PO SCH ×2 (07:52→20:25)
[2021-07-15] MEDS: SENNOSIDES 8.6 MG TABLET PO SCH (07:52)
[2021-07-15] MEDS: IPRATROPIUM BROMIDE 0.06% NASAL SPRAY 15ML BOTTLE NS SCH ×2 (07:52→20:25)
[2021-07-15] MEDS: POTASSIUM CHLORIDE 20 MEQ TABLET.ER. PO SCH (07:52)
[2021-07-15] MEDS: POLYETHYLENE GLYCOL 3350 17 GM PACKET. PO SCH (08:23)
[2021-07-15] MEDS: NICOTINE 7MG PATCH. TD SCH (08:23)
--- NOTE | 2021-07-15 09:03 | PDOC ---
Exam Note: Daren Note: This note is a late entry for 07/12/2021 covers elements not covered in my initial note. Subjective: The patient was seen individually on 07/12/2021, discussed and reviewed the chart with Daniella MATIAS. The patient slept 7 hours previous night. He is somewhat fussy, irritable in the morning, did better rest of the day. I met with him in the evening. Review of Systems: Ambulation impaired, in wheelchair. No CV, , pulmonary, eye system symptoms on review. Mental Status Exam: The patient is oriented to himself and situation. He was lying in bed, somewhat hard of hearing. Speech has some latency, but coherent. Abstraction fair. Computation impaired. Language function intact. Mood and affect somewhat anxious. No suicidal or homicidal ideation. Laboratory Data: Reviewed. 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 Anxiety disorder unspecified. Impulse control disorder unspecified. Plan: Continue current psychotropics from initial note. Reviewed drug interactions, risk-benefit ratio. Adjust further as clinically indicated. Assessment: Vital Signs/I&O: Vital Signs Date Time Temp Pulse Resp B/P (MAP) Pulse Ox O2 Delivery O2 Flow Rate FiO2 07/15/21 06:14 97.6 72 18 131/79 (96) 97 07/14/21 06:23 Room Air I & O 0 07/14/21 07/14/21 07/15/21 15:00 23:00 07:00 Intake Total 720 ml 0 ml Balance 720 ml 0 ml Current Medications: I have reviewed the current psychotropics carefully including drug interactions. Risk benefit ratio favors no change other than as noted in my dictated progress note. Diagnosis: Problems: (1) Impulse control disorder, unspecified (2) Anxiety disorder, unspecified (3) Dementia, vascular, with depression (4) Dementia, vascular, with delusions (5) Dementia in Alzheimer's disease with depression (6) Dementia in Alzheimer's disease with delusions (7) Dementia of the Alzheimer's type with early onset with behavioral disturbance (8) Major neurocognitive disorder (9) Major depressive disorder, recurrent episode (10) Mild cognitive impairment MICHAEL MCKEON MD Jul 15, 2021 09:03
--- NOTE | 2021-07-15 09:17 | PDOC ---
Exam Note: Daren Note: This note is a late entry for 07/13/2021 covers elements not covered in my initial note. Subjective: The patient was reviewed at treatment team meeting individually in the morning on 07/13/2021 with Eva Troncoso, Amanda Mobley, and Maria Esther Piña (social media marketer), Clara, activity therapy, and Daniella RN, discussed and reviewed the chart. Discussed her diagnoses, progress at length. The patient slept 9-1/2 hours previous night. Average sleep 6 hours. Appetite 65%. I also discussed with Daniella MATIAS in the evening. He takes medications whole. No behaviors noted for the last couple of days and 2 days back he got agitated when staff intervened because he was trying to move himself from wheelchair to bed and was a fall risk. He attended 1 group in the past week. Placement is being arranged for [facility]. I met with the patient in his room in the evening. At around afternoon during lunch time, he was eating really rapidly and seemed to choke on some pulled pork and nursing staff had to do the Heimlich manuever to dislodge this. We will defer to Dr. Nuñez for possible sleep consult. Diet changed to mechanical soft. In the past he choked on chicken as well. I met with him in his room. Review of Systems: Ambulation impaired, in wheelchair. No CV, , pulmonary, eye system symptoms on review. Mental Status Exam: The patient is oriented to himself and situation Speech has some latency, coherent. Abstraction fair. Computation impaired. Language function intact. Mood and affect somewhat anxious. No suicidal or homicidal ideation. Laboratory Data: Reviewed. 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 Anxiety disorder unspecified. Impulse control disorder unspecified. Plan: Continue current psychotropics from initial note. Reviewed drug interactions, risk-benefit ratio. Adjust further as clinically indicated. Assessment: Vital Signs/I&O: Vital Signs Date Time Temp Pulse Resp B/P (MAP) Pulse Ox O2 Delivery O2 Flow Rate FiO2 07/15/21 06:14 97.6 72 18 131/79 (96) 97 07/14/21 06:23 Room Air I & O 07/14/21 07/14/21 07/15/21 15:00 23:00 07:00 Intake Total 720 ml 0 ml Balance 720 ml 0 ml Current Medications: I have reviewed the current psychotropics carefully including drug interactions. Risk benefit ratio favors no change other than as noted in my dictated progress note. Diagnosis: Problems: (1) Impulse control disorder, unspecified (2) Major depressive disorder, severe (3) Anxiety disorder, unspecified (4) Dementia, vascular, with depression (5) Dementia, vascular, with delusions (6) Dementia in Alzheimer's disease with depression (7) Dementia in Alzheimer's disease with delusions (8) Dementia of the Alzheimer's type with early onset with behavioral disturbance (9) Major neurocognitive disorder (10) Mild cognitive impairment MICHAEL MCKEON MD Jul 15, 2021 09:17
[2021-07-15] MEDS ORDERED: NICOTINE 7MG PATCH. TD PRN (14:15)
[2021-07-15 15:54] VITALS: BP 93/55
[2021-07-15] MEDS: ATORVASTATIN CALCIUM 10 MG TABLET. PO SCH (20:26)
--- NOTE | 2021-07-15 22:00 | PDOC ---
Exam Note: Daren Note: Please also refer to the separate dictated note~for this date of service dictated separately.~Patient seen individually. Discussed the patient with Nursing staff reviewed the chart.~Reviewed interim history and current functioning. Reviewed vital signs,~Labs/ Radiology~and current medications noted below. Continue current treatment with the changes noted in the dictated addendum note Assessment: Vital Signs/I&O: Vital Signs Date Time Temp Pulse Resp B/P (MAP) Pulse Ox O2 Delivery O2 Flow Rate FiO2 07/15/21 15:54 97.4 94 16 93/55 (68) 95 07/14/21 06:23 Room Air I & O 07/14/21 07/14/21 07/15/21 15:00 23:00 07:00 Intake Total 720 ml 0 ml Balance 720 ml 0 ml Current Medications: Meds: Current Medications Medications (Trade) Dose Ordered Sig/Daisy Route PRN Reason Start Time Stop Time Status Last Admin Dose Admin Acetaminophen (Tylenol) 650 mg PRN Q6HRS PRN PO MILD PAIN / TEMP > 100.3'F 05/11/21 16:15 06/26/21 04:07 Multi-Ingredient Ointment (Analgesic [place]) 1 eva PRN QID PRN TP MUSCLE PAIN 05/11/21 16:15 Al Hydroxide/Mg Hydroxide (Mylanta Plus Xs) 15 ml PRN AFTMEALHC PRN PO DYSPEPSIA 05/11/21 16:15 Magnesium Hydroxide (Milk Of Magnesia) 2,400 mg PRN QHS PRN PO CONSTIPATION 05/11/21 16:15 06/28/21 21:17 Nicotine (Nicoderm Cq 14mg Patch) 1 patch DAILY TD 05/12/21 09:00 05/30/21 17:27 DC 05/29/21 08:46 Ascorbic Acid (Vitamin C) 500 mg DAILY PO 05/12/21 09:00 07/15/21 07:51 Aspirin (Aspirin Chewable) 81 mg DAILY PO 05/12/21 09:00 07/15/21 07:51 Nicotine (Nicoderm Cq 14mg Patch) 1 patch DAILY TD 05/12/21 09:00 UNV Potassium Chloride (Klor-Con) 40 meq DAILY PO 05/12/21 09:00 07/15/21 07:52 Sennosides (Senna) 8.6 mg DAILY PO 05/12/21 09:00 07/15/21 07:52 Sertraline HCl (Zoloft) 125 mg DAILY PO 05/12/21 09:00 05/18/21 18:20 DC 05/18/21 08:59 Vitamin D (Vitamin D3) 1,000 unit DAILY PO 05/12/21 09:00 07/15/21 07:51 Cyanocobalamin (Vitamin B-12) 1,000 mcg [id number] PO 05/12/21 09:00 07/07/21 08:42 Polyethylene Glycol (miraLAX) 17 gm DAILY PO 05/12/21 09:00 07/15/21 08:23 Atorvastatin Calcium (Lipitor) 10 mg QHS PO 05/12/21 21:00 07/15/21 20:26 Quetiapine Fumarate (SEROquel) 25 mg PRN BID PRN PO AGITATION 05/12/21 07:15 05/19/21 19:14 DC 05/19/21 09:35 Divalproex Sodium (Depakote Sprinkles) 125 mg [id number] PO 05/12/21 09:00 05/12/21 16:01 DC 05/12/21 08:19 Ipratropium [place] (Atrovent Nasal) 1 spray BID NS 05/12/21 09:00 07/15/21 20:25 Divalproex Sodium (Depakote Sprinkles) 250 mg BID94 PO 05/12/21 16:00 05/16/21 18:09 DC 05/16/21 15:00 Cefdinir (Omnicef) 300 mg BID PO 05/14/21 21:00 05/20/21 22:00 DC 05/20/21 21:00 Lactobacillus Rhamnosus (Culturelle) 1 cap BID PO 05/14/21 21:00 07/15/21 20:25 Carbidopa/Levodopa (Sinemet 25/100) 1 tab TID PO 05/15/21 21:00 07/15/21 20:26 Divalproex Sodium (Depakote Sprinkles) 375 mg BID94 PO 05/17/21 09:00 05/27/21 19:14 DC 05/27/21 14:52 Sertraline HCl (Zoloft) 150 mg DAILY PO 05/19/21 09:00 06/01/21 11:53 DC 06/01/21 09:01 Quetiapine Fumarate (SEROquel) 25 mg 0900,1700 PO 05/20/21 09:00 05/23/21 18:17 DC 05/23/21 17:00 Olanzapine (ZyPREXA ZYDIS) 2.5 mg PRN Q2HR PRN PO PSYCHOSIS 05/20/21 10:00 07/11/21 13:20 Quetiapine Fumarate (SEROquel) 25 mg 0900,1300,1700 PO 05/24/21 09:00 05/25/21 11:57 DC 05/25/21 09:00 Quetiapine Fumarate (SEROquel) 25 mg 0900,1200,1500,1800 PO 05/25/21 12:00 07/11/21 17:00 DC 07/11/21 14:52 Divalproex Sodium (Depakote Sprinkles) 500 mg BID94 PO 05/28/21 09:00 06/07/21 17:03 DC 06/07/21 08:54 Nicotine (Nicoderm Cq 7mg Patch) 1 patch DAILY TD 05/31/21 09:00 07/15/21 14:11 DC 07/15/21 08:23 Sertraline HCl (Zoloft) 175 mg DAILY PO 06/02/21 09:00 07/01/21 21:36 DC 07/01/21 08:43 Divalproex Sodium (Depakote Sprinkles) 250 mg BID94 PO 06/08/21 09:00 06/07/21 17:07 DC Divalproex Sodium (Depakote Sprinkles) 250 mg BID94 PO 06/07/21 17:15 07/15/21 16:44 Artificial Tears (Artificial Tears) 1 drop PRN Q4HRS PRN OS DRY EYE 06/11/21 16:00 06/11/21 18:00 Acetaminophen/ Hydrocodone Bitart (Lortab 5/325) 1 tab PRN Q4HRS PRN PO MODERATE PAIN 4-6 06/26/21 06:00 07/10/21 20:20 Sertraline HCl (Zoloft) 200 mg DAILY PO 07/02/21 09:00 07/02/21 12:46 DC 07/02/21 08:28 Sertraline HCl (Zoloft) 200 mg DAILY PO 07/03/21 09:00 07/15/21 07:52 Levofloxacin (Levaquin) 500 mg DAILY06 PO 07/03/21 09:15 07/09/21 21:00 DC 07/09/21 08:47 Quetiapine Fumarate (SEROquel) 25 mg 0900,1800 PO 07/11/21 18:00 07/15/21 16:44 Quetiapine Fumarate (SEROquel) 37.5 mg 1200,1500 PO 07/12/21 12:00 07/15/21 12:01 Nicotine (Nicoderm Cq 7mg Patch) 1 patch PRN DAILY PRN TD smoking cessation 07/15/21 14:15 I have reviewed the current psychotropics carefully including drug interactions. Risk benefit ratio favors no change other than as noted in my dictated progress note. Diagnosis: Problems: (1) Impulse control disorder, unspecified (2) Anxiety disorder, unspecified (3) Dementia, vascular, with depression (4) Dementia, vascular, with delusions (5) Dementia in Alzheimer's disease with depression (6) Dementia in Alzheimer's disease with delusions (7) Dementia of the Alzheimer's type with early onset with behavioral disturbance (8) Major neurocognitive disorder (9) Major depressive disorder, recurrent episode MICHAEL MCKEON MD Jul 15, 2021 22:00
--- NOTE | 2021-07-15 23:14 | PDOC ---
Exam Note: Daren Note: This note is a late entry for 07/14/2021 covers elements not covered in my initial note. Subjective: The patient was seen individually on 07/14/2021, discussed and reviewed the chart with Shaquille MATIAS. The patient slept 9-3/4 hours previous night. He is somewhat withdrawn, spends much time in his room. He does not come out of the dayroom. I met with him in his room this evening, encouraged him to come out of the TV lounge but he did not. His diet has been changed as he had choked himself on pulled pork yesterday. Review of Systems: Ambulation impaired, in wheelchair. No CV, , pulmonary, eye system symptoms on review. Mental Status Exam: The patient is oriented to himself and situation. He seemed to be reading a book and seems to remember what he was reading when I questioned him on it. Speech coherent, has some latency. Often response is monosyllabic. Abstraction fair. Computation impaired. Language function intact. Mood and affect anxious. No suicidal or homicidal ideation. Laboratory Data: Reviewed. 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 Anxiety disorder unspecified. Impulse control disorder unspecified. Plan: Continue current psychotropics from initial note. Reviewed drug interactions, risk-benefit ratio. Adjust further as clinically indicated. Assessment: Vital Signs/I&O: Vital Signs Date Time Temp Pulse Resp B/P (MAP) Pulse Ox O2 Delivery O2 Flow Rate FiO2 07/15/21 15:54 97.4 94 16 93/55 (68) 95 07/14/21 06:23 Room Air I & O 07/14/21 07/14/21 07/15/21 14:59 22:59 06:59 Intake Total 720 ml 0 ml Balance 720 ml 0 ml Current Medications: I have reviewed the current psychotropics carefully including drug interactions. Risk benefit ratio favors no change other than as noted in my dictated progress note. Diagnosis: Problems: (1) Impulse control disorder, unspecified (2) Anxiety disorder, unspecified (3) Dementia, vascular, with depression (4) Dementia, vascular, with delusions (5) Dementia in Alzheimer's disease with depression (6) Dementia in Alzheimer's disease with delusions (7) Dementia of the Alzheimer's type with early onset with behavioral disturbance (8) Major neurocognitive disorder (9) Major depressive disorder, recurrent episode (10) Mild cognitive impairment MICHAEL MCKEON MD Jul 15, 2021 23:14
[2021-07-16 06:41] VITALS: BP 143/76
[2021-07-16] MEDS: CARBIDOPA/LEVODOPA 25/100MG TABLET PO SCH ×3 (07:54→20:41)
[2021-07-16] MEDS: ASPIRIN CHEWABLE 81 MG TABLET. PO SCH (07:54)
[2021-07-16] MEDS: LACTOBACILLUS RHAMNOSUS GG 1 CAPSULE. PO SCH ×2 (07:54→20:41)
[2021-07-16] MEDS: ASCORBIC ACID 500 MG TABLET PO SCH (07:54)
[2021-07-16] MEDS: SERTRALINE 100 MG TABLET. PO SCH (07:54)
[2021-07-16] MEDS: QUEtiapine 25 MG TABLET. PO SCH ×4 (07:55→16:46)
[2021-07-16] MEDS: POLYETHYLENE GLYCOL 3350 17 GM PACKET. PO SCH (07:55)
[2021-07-16] MEDS: SENNOSIDES 8.6 MG TABLET PO SCH (07:55)
[2021-07-16] MEDS: DIVALPROEX 125 MG CAP.SPRINK PO SCH ×2 (07:55→16:46)
[2021-07-16] MEDS: CHOLECALCIFEROL (VITAMIN D3) 1,000 UNIT TABLET PO SCH (07:55)
[2021-07-16] MEDS: POTASSIUM CHLORIDE 20 MEQ TABLET.ER. PO SCH (07:55)
[2021-07-16] MEDS: IPRATROPIUM BROMIDE 0.06% NASAL SPRAY 15ML BOTTLE NS SCH ×2 (07:56→21:00)
[2021-07-16 08:00] LABS: BASO % 1 % (0-3); EOS # 0.1 x10^3/uL (0.0-0.7); EOS % 1 % (0-3); HEMATOCRIT 43.2 % (39.0-53.0); HEMOGLOBIN 14.3 g/dL (13.0-17.5); LYMPH % 16 % (24-48); MEAN CORPUSCULAR HEMOGLOBIN 32 pg (25-35); MEAN CORPUSCULAR HGB CONC 33 g/dL (31-37); MEAN CORPUSCULAR VOLUME 95 fL (79-100); MONO # 0.6 x10^3/uL (0.0-1.1); MONO % 9 % (0-9); NEUT # 4.5 x10^3uL (1.8-7.7); NEUT % 73 % (31-73); PLATELET COUNT 172 x10^3/uL (140-400); RED BLOOD COUNT 4.53 x10^6/uL (4.30-5.70); RED CELL DISTRIBUTION WIDTH 13.8 % (11.5-14.5); WHITE BLOOD COUNT 6.2 x10^3/uL (4.0-11.0)
[2021-07-16 08:09] LABS: ALBUMIN 3.5 g/dL (3.4-5.0); CREATININE 0.8 mg/dL (0.7-1.3); GFR 94.8; POTASSIUM 4.3 mmol/L (3.5-5.1); TOTAL BILIRUBIN 0.4 mg/dL (0.2-1.0)
[2021-07-16 15:56] VITALS: BP 112/70
[2021-07-16] MEDS: ATORVASTATIN CALCIUM 10 MG TABLET. PO SCH (20:41)
--- NOTE | 2021-07-16 22:01 | PDOC ---
Exam Note: Daren Note: Please also refer to the separate dictated note~for this date of service dictated separately.~Patient seen individually. Discussed the patient with Nursing staff reviewed the chart.~Reviewed interim history and current functioning. Reviewed vital signs,~Labs/ Radiology~and current medications noted below. Continue current treatment with the changes noted in the dictated addendum note Assessment: Vital Signs/I&O: Vital Signs Date Time Temp Pulse Resp B/P (MAP) Pulse Ox O2 Delivery O2 Flow Rate FiO2 07/16/21 15:56 97.7 83 16 112/70 (84) 96 07/16/21 06:41 Room Air I & O 07/15/21 07/15/21 07/16/21 15:00 23:00 07:00 Intake Total 720 ml 1020 ml Balance 720 ml 1020 ml Labs: Laboratory Tests Test 07/16/21 07:15 White Blood Count 6.2 x10^3/uL (4.0-11.0) Red Blood Count 4.53 x10^6/uL (4.30-5.70) Hemoglobin 14.3 g/dL (13.0-17.5) Hematocrit 43.2 % (39.0-53.0) Mean Corpuscular Volume 95 fL (79-100) Mean Corpuscular Hemoglobin 32 pg (25-35) Mean Corpuscular Hemoglobin Concent 33 g/dL (31-37) Red Cell Distribution Width 13.8 % (11.5-14.5) Platelet Count 172 x10^3/uL (140-400) Neutrophils (%) (Auto) 73 % (31-73) Lymphocytes (%) (Auto) 16 % (24-48) L Monocytes (%) (Auto) 9 % (0-9) Eosinophils (%) (Auto) 1 % (0-3) Basophils (%) (Auto) 1 % (0-3) Neutrophils # (Auto) 4.5 x10^3uL (1.8-7.7) Lymphocytes # (Auto) 1.0 x10^3/uL (1.0-4.8) Monocytes # (Auto) 0.6 x10^3/uL (0.0-1.1) Eosinophils # (Auto) 0.1 x10^3/uL (0.0-0.7) Basophils # (Auto) 0.0 x10^3/uL (0.0-0.2) Sodium Level 139 mmol/L (136-145) Potassium Level 4.3 mmol/L (3.5-5.1) Chloride Level 104 mmol/L (98-107) Carbon Dioxide Level 29 mmol/L (21-32) Anion Gap 6 (6-14) Blood Urea Nitrogen 28 mg/dL (8-26) H Creatinine 0.8 mg/dL (0.7-1.3) Estimated GFR (Cockcroft-Gault) 94.8 BUN/Creatinine Ratio 35 (6-20) H Glucose Level 84 mg/dL (70-99) Calcium Level 9.0 mg/dL (8.5-10.1) Total Bilirubin 0.4 mg/dL (0.2-1.0) Aspartate Amino Transferase (AST) 15 U/L (15-37) Alanine Aminotransferase (ALT) 11 U/L (16-63) L Alkaline Phosphatase 237 U/L (46-116) H Total Protein 7.0 g/dL (6.4-8.2) Albumin 3.5 g/dL (3.4-5.0) Albumin/Globulin Ratio 1.0 (1.0-1.7) Current Medications: Meds: Laboratory Tests Test 07/16/21 07:15 White Blood Count 6.2 x10^3/uL Red Blood Count 4.53 x10^6/uL Hemoglobin 14.3 g/dL Hematocrit 43.2 % Mean Corpuscular Volume 95 fL Mean Corpuscular Hemoglobin 32 pg Mean Corpuscular Hemoglobin Concent 33 g/dL Red Cell Distribution Width 13.8 % Platelet Count 172 x10^3/uL Neutrophils (%) (Auto) 73 % Lymphocytes (%) (Auto) 16 % Monocytes (%) (Auto) 9 % Eosinophils (%) (Auto) 1 % Basophils (%) (Auto) 1 % Neutrophils # (Auto) 4.5 x10^3uL Lymphocytes # (Auto) 1.0 x10^3/uL Monocytes # (Auto) 0.6 x10^3/uL Eosinophils # (Auto) 0.1 x10^3/uL Basophils # (Auto) 0.0 x10^3/uL Sodium Level 139 mmol/L Potassium Level 4.3 mmol/L Chloride Level 104 mmol/L Carbon Dioxide Level 29 mmol/L Anion Gap 6 Blood Urea Nitrogen 28 mg/dL Creatinine 0.8 mg/dL Estimated GFR (Cockcroft-Gault) 94.8 BUN/Creatinine Ratio 35 Glucose Level 84 mg/dL Calcium Level 9.0 mg/dL Total Bilirubin 0.4 mg/dL Aspartate Amino Transf (AST/SGOT) 15 U/L Alanine Aminotransferase (ALT/SGPT) 11 U/L Alkaline Phosphatase 237 U/L Total Protein 7.0 g/dL Albumin 3.5 g/dL Albumin/Globulin Ratio 1.0 Current Medications Medications (Trade) Dose Ordered Sig/Daisy Route PRN Reason Start Time Stop Time Status Last Admin Dose Admin Acetaminophen (Tylenol) 650 mg PRN Q6HRS PRN PO MILD PAIN / TEMP > 100.3'F 05/11/21 16:15 06/26/21 04:07 Multi-Ingredient Ointment (Analgesic [place]) 1 eva PRN QID PRN TP MUSCLE PAIN 05/11/21 16:15 Al Hydroxide/Mg Hydroxide (Mylanta Plus Xs) 15 ml PRN AFTMEALHC PRN PO DYSPEPSIA 05/11/21 16:15 Magnesium Hydroxide (Milk Of Magnesia) 2,400 mg PRN QHS PRN PO CONSTIPATION 05/11/21 16:15 06/28/21 21:17 Nicotine (Nicoderm Cq 14mg Patch) 1 patch DAILY TD 05/12/21 09:00 05/30/21 17:27 DC 05/29/21 08:46 Ascorbic Acid (Vitamin C) 500 mg DAILY PO 05/12/21 09:00 07/16/21 07:54 Aspirin (Aspirin Chewable) 81 mg DAILY PO 05/12/21 09:00 07/16/21 07:54 Nicotine (Nicoderm Cq 14mg Patch) 1 patch DAILY TD 05/12/21 09:00 UNV Potassium Chloride (Klor-Con) 40 meq DAILY PO 05/12/21 09:00 07/16/21 07:55 Sennosides (Senna) 8.6 mg DAILY PO 05/12/21 09:00 07/16/21 07:55 Sertraline HCl (Zoloft) 125 mg DAILY PO 05/12/21 09:00 05/18/21 18:20 DC 05/18/21 08:59 Vitamin D (Vitamin D3) 1,000 unit DAILY PO 05/12/21 09:00 07/16/21 07:55 Cyanocobalamin (Vitamin B-12) 1,000 mcg [id number] PO 05/12/21 09:00 07/07/21 08:42 Polyethylene Glycol (miraLAX) 17 gm DAILY PO 05/12/21 09:00 07/16/21 07:55 Atorvastatin Calcium (Lipitor) 10 mg QHS PO 05/12/21 21:00 07/16/21 20:41 Quetiapine Fumarate (SEROquel) 25 mg PRN BID PRN PO AGITATION 05/12/21 07:15 05/19/21 19:14 DC 05/19/21 09:35 Divalproex Sodium (Depakote Sprinkles) 125 mg [id number] PO 05/12/21 09:00 05/12/21 16:01 DC 05/12/21 08:19 Ipratropium [place] (Atrovent Nasal) 1 spray BID NS 05/12/21 09:00 07/16/21 07:56 Divalproex Sodium (Depakote Sprinkles) 250 mg [id number] PO 05/12/21 16:00 05/16/21 18:09 DC 05/16/21 15:00 Cefdinir (Omnicef) 300 mg BID PO 05/14/21 21:00 05/20/21 22:00 DC 05/20/21 21:00 Lactobacillus Rhamnosus (Culturelle) 1 cap BID PO 05/14/21 21:00 07/16/21 20:41 Carbidopa/Levodopa (Sinemet 25/100) 1 tab TID PO 05/15/21 21:00 07/16/21 20:41 Divalproex Sodium (Depakote Sprinkles) 375 mg BID94 PO 05/17/21 09:00 05/27/21 19:14 DC 05/27/21 14:52 Sertraline HCl (Zoloft) 150 mg DAILY PO 05/19/21 09:00 06/01/21 11:53 DC 06/01/21 09:01 Quetiapine Fumarate (SEROquel) 25 mg 0900,1700 PO 05/20/21 09:00 05/23/21 18:17 DC 05/23/21 17:00 Olanzapine (ZyPREXA ZYDIS) 2.5 mg PRN Q2HR PRN PO PSYCHOSIS 05/20/21 10:00 07/11/21 13:20 Quetiapine Fumarate (SEROquel) 25 mg 0900,1300,1700 PO 05/24/21 09:00 05/25/21 11:57 DC 05/25/21 09:00 Quetiapine Fumarate (SEROquel) 25 mg 0900,1200,1500,1800 PO 05/25/21 12:00 07/11/21 17:00 DC 07/11/21 14:52 Divalproex Sodium (Depakote Sprinkles) 500 mg BID94 PO 05/28/21 09:00 06/07/21 17:03 DC 06/07/21 08:54 Nicotine (Nicoderm Cq 7mg Patch) 1 patch DAILY TD 05/31/21 09:00 07/15/21 14:11 DC 07/15/21 08:23 Sertraline HCl (Zoloft) 175 mg DAILY PO 06/02/21 09:00 07/01/21 21:36 DC 07/01/21 08:43 Divalproex Sodium (Depakote Sprinkles) 250 mg BID94 PO 06/08/21 09:00 06/07/21 17:07 DC Divalproex Sodium (Depakote Sprinkles) 250 mg BID94 PO 06/07/21 17:15 07/16/21 16:46 Artificial Tears (Artificial Tears) 1 drop PRN Q4HRS PRN OS DRY EYE 06/11/21 16:00 06/11/21 18:00 Acetaminophen/ Hydrocodone Bitart (Lortab 5/325) 1 tab PRN Q4HRS PRN PO MODERATE PAIN 4-6 06/26/21 06:00 07/10/21 20:20 Sertraline HCl (Zoloft) 200 mg DAILY PO 07/02/21 09:00 07/02/21 12:46 DC 07/02/21 08:28 Sertraline HCl (Zoloft) 200 mg DAILY PO 07/03/21 09:00 07/16/21 07:54 Levofloxacin (Levaquin) 500 mg DAILY06 PO 07/03/21 09:15 07/09/21 21:00 DC 07/09/21 08:47 Quetiapine Fumarate (SEROquel) 25 mg 0900,1800 PO 07/11/21 18:00 07/16/21 16:46 Quetiapine Fumarate (SEROquel) 37.5 mg 1200,1500 PO 07/12/21 12:00 07/16/21 15:41 Nicotine (Nicoderm Cq 7mg Patch) 1 patch PRN DAILY PRN TD smoking cessation 07/15/21 14:15 I have reviewed the current psychotropics carefully including drug interactions. Risk benefit ratio favors no change other than as noted in my dictated progress note. Diagnosis: Problems: (1) Impulse control disorder, unspecified (2) Anxiety disorder, unspecified (3) Dementia, vascular, with depression (4) Dementia, vascular, with delusions (5) Dementia in Alzheimer's disease with depression (6) Dementia in Alzheimer's disease with delusions (7) Dementia of the Alzheimer's type with early onset with behavioral disturbance (8) Major neurocognitive disorder (9) Major depressive disorder, recurrent episode (10) Mild cognitive impairment MICHAEL MCKEON MD Jul 16, 2021 22:01
[2021-07-17] MEDS: MAGNESIUM HYDROXIDE 2,400 MG/30 ML ORAL.SUSP. PO PRN (02:12)
[2021-07-17 02:14] LABS: COLOR,URINE YELLOW
[2021-07-17 02:15] LABS: BACTERIA,URINE 0 /HPF (0-FEW); CLARITY,URINE CLEAR; GLUCOSE,URINE NEG (NEG); NITRITE,URINE NEG (NEG); RBC,URINE 0 /HPF (0-2); UROBILINOGEN,URINE 0.2 mg/dL (0.2 mg/dL); WBC,URINE OCC /HPF (0-4)
[2021-07-17 06:02] VITALS: BP 120/70
[2021-07-17] MEDS: POLYETHYLENE GLYCOL 3350 17 GM PACKET. PO SCH (08:02)
[2021-07-17] MEDS: QUEtiapine 25 MG TABLET. PO SCH ×4 (08:02→17:17)
[2021-07-17] MEDS: IPRATROPIUM BROMIDE 0.06% NASAL SPRAY 15ML BOTTLE NS SCH ×2 (08:02→21:00)
[2021-07-17] MEDS: ASCORBIC ACID 500 MG TABLET PO SCH (08:03)
[2021-07-17] MEDS: LACTOBACILLUS RHAMNOSUS GG 1 CAPSULE. PO SCH ×3 (08:03→21:00)
[2021-07-17] MEDS: DIVALPROEX 125 MG CAP.SPRINK PO SCH ×2 (08:03→15:16)
[2021-07-17] MEDS: CHOLECALCIFEROL (VITAMIN D3) 1,000 UNIT TABLET PO SCH (08:03)
[2021-07-17] MEDS: CARBIDOPA/LEVODOPA 25/100MG TABLET PO SCH ×4 (08:03→21:00)
[2021-07-17] MEDS: POTASSIUM CHLORIDE 20 MEQ TABLET.ER. PO SCH (08:04)
[2021-07-17] MEDS: SERTRALINE 100 MG TABLET. PO SCH (08:04)
[2021-07-17] MEDS: ASPIRIN CHEWABLE 81 MG TABLET. PO SCH (08:04)
[2021-07-17] MEDS: SENNOSIDES 8.6 MG TABLET PO SCH (08:04)
--- NOTE | 2021-07-17 08:51 | PDOC ---
Exam Note: Daren Note: This note is a late entry for 07/15/2021 covers elements not covered in my initial note. Subjective: The patient was seen individually on 07/15/2021, discussed and reviewed the chart with Sadia MATIAS. I met with the patient in the dayroom. He has been more interactive with peers. No falls are noted. Per nursing report, he seems to be doing better. I met with the patient individually. We discussed his repetitive attempts to move from bed to wheelchair and vice-versa and for the patient to seek help rather than doing it on his own and he is agreeable. Review of Systems: Ambulation impaired, in wheelchair. No CV, , pulmonary, eye system symptoms on review. Mental Status Exam: The patient is oriented to himself and situation. Speech coherent, has some latency. Often response is monosyllabic. Abstraction fair. Computation impaired. Language function intact. Mood and affect anxious. No suicidal or homicidal ideation. Laboratory Data: Reviewed. 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 Anxiety disorder unspecified. Impulse control disorder unspecified. Plan: Continue current psychotropics from initial note. Reviewed drug interactions, risk-benefit ratio. Adjust further as clinically indicated. Assessment: Vital Signs/I&O: Vital Signs Date Time Temp Pulse Resp B/P (MAP) Pulse Ox O2 Delivery O2 Flow Rate FiO2 07/17/21 06:02 97.9 81 18 120/70 (87) 96 07/16/21 06:41 Room Air I & O 07/16/21 07/16/21 07/17/21 15:00 23:00 07:00 Intake Total 840 ml 600 ml Balance 840 ml 600 ml Labs: Laboratory Tests Test 07/17/21 01:50 Urine Collection Type Unknown Urine Color Yellow Urine Clarity Clear Urine pH 7.0 Urine Specific [place] 1.025 Urine Protein Neg (NEG-TRACE) Urine Glucose (UA) Neg mg/dL (NEG) Urine Ketones (Stick) 15 mg/dL (NEG) Urine Blood Neg (NEG) Urine Nitrite Neg (NEG) Urine Bilirubin Neg (NEG) Urine Urobilinogen Dipstick 0.2 mg/dL (0.2 mg/dL) Urine Leukocyte Esterase Neg (NEG) Urine RBC 0 /HPF (0-2) Urine WBC Occ /HPF (0-4) Urine Squamous Epithelial Cells None /LPF Urine Bacteria 0 /HPF (0-FEW) Current Medications: I have reviewed the current psychotropics carefully including drug interactions. Risk benefit ratio favors no change other than as noted in my dictated progress note. Diagnosis: Problems: (1) Impulse control disorder, unspecified (2) Anxiety disorder, unspecified (3) Dementia, vascular, with depression (4) Dementia, vascular, with delusions (5) Dementia in Alzheimer's disease with depression (6) Dementia in Alzheimer's disease with delusions (7) Dementia of the Alzheimer's type with early onset with behavioral disturbance (8) Major neurocognitive disorder (9) Major depressive disorder, recurrent episode (10) Mild cognitive impairment MICHAEL MCKEON MD Jul 17, 2021 08:51
[2021-07-17 15:33] VITALS: BP 136/80
[2021-07-17] MEDS: ATORVASTATIN CALCIUM 10 MG TABLET. PO SCH ×2 (20:26→21:00)
--- NOTE | 2021-07-17 21:43 | PDOC ---
Exam Note: Daren Note: Please also refer to the separate dictated note~for this date of service dictated separately.~Patient seen individually. Discussed the patient with Nursing staff reviewed the chart.~Reviewed interim history and current functioning. Reviewed vital signs,~Labs/ Radiology~and current medications noted below. Continue current treatment with the changes noted in the dictated addendum note Assessment: Vital Signs/I&O: Vital Signs Date Time Temp Pulse Resp B/P (MAP) Pulse Ox O2 Delivery O2 Flow Rate FiO2 07/17/21 15:33 98.8 86 20 136/80 (98) 96 07/16/21 06:41 Room Air I & O 07/16/21 07/16/21 07/17/21 15:00 23:00 07:00 Intake Total 840 ml 600 ml Balance 840 ml 600 ml Labs: Laboratory Tests Test 07/17/21 01:50 Urine Collection Type Unknown Urine Color Yellow Urine Clarity Clear Urine pH 7.0 Urine Specific [place] 1.025 Urine Protein Neg (NEG-TRACE) Urine Glucose (UA) Neg mg/dL (NEG) Urine Ketones (Stick) 15 mg/dL (NEG) Urine Blood Neg (NEG) Urine Nitrite Neg (NEG) Urine Bilirubin Neg (NEG) Urine Urobilinogen Dipstick 0.2 mg/dL (0.2 mg/dL) Urine Leukocyte Esterase Neg (NEG) Urine RBC 0 /HPF (0-2) Urine WBC Occ /HPF (0-4) Urine Squamous Epithelial Cells None /LPF Urine Bacteria 0 /HPF (0-FEW) Current Medications: Meds: Laboratory Tests Test 07/17/21 01:50 Urine Collection Type Unknown Urine Color Yellow Urine Clarity Clear Urine pH 7.0 Urine Specific [place] 1.025 Urine Protein Neg Urine Glucose (UA) Neg mg/dL Urine Ketones (Stick) 15 mg/dL Urine Blood Neg Urine Nitrite Neg Urine Bilirubin Neg Urine Urobilinogen Dipstick 0.2 mg/dL Urine Leukocyte Esterase Neg Urine RBC 0 /HPF Urine WBC Occ /HPF Urine Squamous Epithelial Cells None /LPF Urine Bacteria 0 /HPF Current Medications Medications (Trade) Dose Ordered Sig/Daisy Route PRN Reason Start Time Stop Time Status Last Admin Dose Admin Acetaminophen (Tylenol) 650 mg PRN Q6HRS PRN PO MILD PAIN / TEMP > 100.3'F 05/11/21 16:15 06/26/21 04:07 Multi-Ingredient Ointment (Analgesic [place]) 1 eva PRN QID PRN TP MUSCLE PAIN 05/11/21 16:15 Al Hydroxide/Mg Hydroxide (Mylanta Plus Xs) 15 ml PRN AFTMEALHC PRN PO DYSPEPSIA 05/11/21 16:15 Magnesium Hydroxide (Milk Of Magnesia) 2,400 mg PRN QHS PRN PO CONSTIPATION 05/11/21 16:15 07/17/21 02:12 Nicotine (Nicoderm Cq 14mg Patch) 1 patch DAILY TD 05/12/21 09:00 05/30/21 17:27 DC 05/29/21 08:46 Ascorbic Acid (Vitamin C) 500 mg DAILY PO 05/12/21 09:00 07/17/21 08:03 Aspirin (Aspirin Chewable) 81 mg DAILY PO 05/12/21 09:00 07/17/21 08:04 Nicotine (Nicoderm Cq 14mg Patch) 1 patch DAILY TD 05/12/21 09:00 UNV Potassium Chloride (Klor-Con) 40 meq DAILY PO 05/12/21 09:00 07/17/21 08:04 Sennosides (Senna) 8.6 mg DAILY PO 05/12/21 09:00 07/17/21 08:04 Sertraline HCl (Zoloft) 125 mg DAILY PO 05/12/21 09:00 05/18/21 18:20 DC 05/18/21 08:59 Vitamin D (Vitamin D3) 1,000 unit DAILY PO 05/12/21 09:00 07/17/21 08:03 Cyanocobalamin (Vitamin B-12) 1,000 mcg [id number] PO 05/12/21 09:00 07/07/21 08:42 Polyethylene Glycol (miraLAX) 17 gm DAILY PO 05/12/21 09:00 07/17/21 08:02 Atorvastatin Calcium (Lipitor) 10 mg QHS PO 05/12/21 21:00 07/16/21 20:41 Quetiapine Fumarate (SEROquel) 25 mg PRN BID PRN PO AGITATION 05/12/21 07:15 05/19/21 19:14 DC 05/19/21 09:35 Divalproex Sodium (Depakote Sprinkles) 125 mg [id number] PO 05/12/21 09:00 05/12/21 16:01 DC 05/12/21 08:19 Ipratropium [place] (Atrovent Nasal) 1 spray BID NS 05/12/21 09:00 07/17/21 08:02 Divalproex Sodium (Depakote Sprinkles) 250 mg BID94 PO 05/12/21 16:00 05/16/21 18:09 DC 05/16/21 15:00 Cefdinir (Omnicef) 300 mg BID PO 05/14/21 21:00 05/20/21 22:00 DC 05/20/21 21:00 Lactobacillus Rhamnosus (Culturelle) 1 cap BID PO 05/14/21 21:00 07/17/21 08:03 Carbidopa/Levodopa (Sinemet 25/100) 1 tab TID PO 05/15/21 21:00 07/17/21 12:26 Divalproex Sodium (Depakote Sprinkles) 375 mg BID94 PO 05/17/21 09:00 05/27/21 19:14 DC 05/27/21 14:52 Sertraline HCl (Zoloft) 150 mg DAILY PO 05/19/21 09:00 06/01/21 11:53 DC 06/01/21 09:01 Quetiapine Fumarate (SEROquel) 25 mg 0900,1700 PO 05/20/21 09:00 05/23/21 18:17 DC 05/23/21 17:00 Olanzapine (ZyPREXA ZYDIS) 2.5 mg PRN Q2HR PRN PO PSYCHOSIS 05/20/21 10:00 07/17/21 03:11 Quetiapine Fumarate (SEROquel) 25 mg 0900,1300,1700 PO 05/24/21 09:00 05/25/21 11:57 DC 05/25/21 09:00 Quetiapine Fumarate (SEROquel) 25 mg 0900,1200,1500,1800 PO 05/25/21 12:00 07/11/21 17:00 DC 07/11/21 14:52 Divalproex Sodium (Depakote Sprinkles) 500 mg BID94 PO 05/28/21 09:00 06/07/21 17:03 DC 06/07/21 08:54 Nicotine (Nicoderm Cq 7mg Patch) 1 patch DAILY TD 05/31/21 09:00 07/15/21 14:11 DC 07/15/21 08:23 Sertraline HCl (Zoloft) 175 mg DAILY PO 06/02/21 09:00 07/01/21 21:36 DC 07/01/21 08:43 Divalproex Sodium (Depakote Sprinkles) 250 mg BID94 PO 06/08/21 09:00 06/07/21 17:07 DC Divalproex Sodium (Depakote Sprinkles) 250 mg BID94 PO 06/07/21 17:15 07/17/21 15:16 Artificial Tears (Artificial Tears) 1 drop PRN Q4HRS PRN OS DRY EYE 06/11/21 16:00 06/11/21 18:00 Acetaminophen/ Hydrocodone Bitart (Lortab 5/325) 1 tab PRN Q4HRS PRN PO MODERATE PAIN 4-6 06/26/21 06:00 07/10/21 20:20 Sertraline HCl (Zoloft) 200 mg DAILY PO 07/02/21 09:00 07/02/21 12:46 DC 07/02/21 08:28 Sertraline HCl (Zoloft) 200 mg DAILY PO 07/03/21 09:00 07/17/21 08:04 Levofloxacin (Levaquin) 500 mg DAILY06 PO 07/03/21 09:15 07/09/21 21:00 DC 07/09/21 08:47 Quetiapine Fumarate (SEROquel) 25 mg 0900,1800 PO 07/11/21 18:00 07/17/21 17:17 Quetiapine Fumarate (SEROquel) 37.5 mg 1200,1500 PO 07/12/21 12:00 07/17/21 15:16 Nicotine (Nicoderm Cq 7mg Patch) 1 patch PRN DAILY PRN TD smoking cessation 07/15/21 14:15 I have reviewed the current psychotropics carefully including drug interactions. Risk benefit ratio favors no change other than as noted in my dictated progress note. Diagnosis: Problems: (1) Impulse control disorder, unspecified (2) Anxiety disorder, unspecified (3) Dementia, vascular, with depression (4) Dementia, vascular, with delusions (5) Dementia in Alzheimer's disease with depression (6) Dementia in Alzheimer's disease with delusions (7) Dementia of the Alzheimer's type with early onset with behavioral disturbance (8) Major neurocognitive disorder (9) Major depressive disorder, recurrent episode MICHAEL MCKEON MD Jul 17, 2021 21:43
[2021-07-17] MEDS ORDERED: TROL86CR TP (23:24)
[2021-07-17] MEDS ORDERED: HYDR-2155 PO (23:28)
[2021-07-17] MEDS ORDERED: ACET325T21 PO (23:30)
[2021-07-17] MEDS ORDERED: OLAN5TAB99 PO (23:32)
[2021-07-17] MEDS ORDERED: QUET25TA5 PO (23:34)
[2021-07-17] MEDS ORDERED: CARB1TAB22 PO (23:36)
[2021-07-17] MEDS ORDERED: POLY15DR20 OP (23:42)
[2021-07-17] MEDS ORDERED: MAG30ORA2 PO (23:43)
[2021-07-17] MEDS ORDERED: LACT1CAP21 PO (23:44)
[2021-07-17] MEDS ORDERED: MAGN400O7 PO (23:44)
[2021-07-18 06:06] VITALS: BP 126/72
[2021-07-18] MEDS: CHOLECALCIFEROL (VITAMIN D3) 1,000 UNIT TABLET PO SCH (08:19)
[2021-07-18] MEDS: SERTRALINE 100 MG TABLET. PO SCH (08:19)
[2021-07-18] MEDS: SENNOSIDES 8.6 MG TABLET PO SCH (08:19)
[2021-07-18] MEDS: LACTOBACILLUS RHAMNOSUS GG 1 CAPSULE. PO SCH ×2 (08:19→19:42)
[2021-07-18] MEDS: DIVALPROEX 125 MG CAP.SPRINK PO SCH ×2 (08:19→17:31)
[2021-07-18] MEDS: QUEtiapine 25 MG TABLET. PO SCH ×4 (08:19→17:31)
[2021-07-18] MEDS: CARBIDOPA/LEVODOPA 25/100MG TABLET PO SCH ×3 (08:20→19:42)
[2021-07-18] MEDS: POTASSIUM CHLORIDE 20 MEQ TABLET.ER. PO SCH (08:20)
[2021-07-18] MEDS: ASPIRIN CHEWABLE 81 MG TABLET. PO SCH (08:20)
[2021-07-18] MEDS: POLYETHYLENE GLYCOL 3350 17 GM PACKET. PO SCH (08:23)
[2021-07-18] MEDS: IPRATROPIUM BROMIDE 0.06% NASAL SPRAY 15ML BOTTLE NS SCH ×2 (08:24→19:39)
--- NOTE | 2021-07-18 08:29 | PDOC ---
Exam Note: Daren Note: This note is a late entry for 07/16/2021 covers elements not covered in my initial note. Subjective: The patient was seen individually on 07/16/2021, discussed and reviewed the chart with Aldo MATIAS. The patient slept 6-1/4 hours previous night. Overall he spends much time in bed, intermittently has some behavior problems, ignores staff members. He does complain of ribs hurting. He did well with the male nursing staff. Review of Systems: Ambulation impaired, in wheelchair. No CV, , pulmonary, eye system symptoms on review. Mental Status Exam: The patient is oriented to himself and situation. He was lying in bed in his room. Speech coherent. Often response is monosyllabic. Ab straction fair. Computation impaired. Language function intact. Mood and affect anxious. No suicidal or homicidal ideation. Laboratory Data: Reviewed. 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 Anxiety disorder unspecified. Impulse control disorder unspecified. Plan: Continue current psychotropics from initial note. Reviewed drug interactions, risk-benefit ratio. Adjust further as clinically indicated. Assessment: Vital Signs/I&O: Vital Signs Date Time Temp Pulse Resp B/P (MAP) Pulse Ox O2 Delivery O2 Flow Rate FiO2 07/18/21 06:06 96.8 71 18 126/72 (90) 96 Room Air I & O 07/17/21 07/17/21 07/18/21 15:00 23:00 07:00 Intake Total 720 ml 480 ml Balance 720 ml 480 ml Current Medications: I have reviewed the current psychotropics carefully including drug interactions. Risk benefit ratio favors no change other than as noted in my dictated progress note. Diagnosis: Problems: (1) Impulse control disorder, unspecified (2) Anxiety disorder, unspecified (3) Dementia, vascular, with depression (4) Dementia, vascular, with delusions (5) Dementia in Alzheimer's disease with depression (6) Dementia in Alzheimer's disease with delusions (7) Dementia of the Alzheimer's type with early onset with behavioral disturbance (8) Major neurocognitive disorder (9) Major depressive disorder, recurrent episode MICHAEL MCKEON MD Jul 18, 2021 08:29
--- NOTE | 2021-07-18 08:44 | PDOC ---
Exam Note: Daren Note: This note is a late entry for 07/17/2021 covers elements not covered in my initial note. Subjective: The patient was seen individually on 07/17/2021, discussed and reviewed the chart with Daniella MATIAS. The patient slept 3-3/4 hours previous night. At times the patient is a bit irritable with the nursing aids, later he did okay. I met with him in the dining room. He has finished his meals quite well. Review of Systems: Ambulation impaired, in wheelchair. Hard of hearing. No CV, , pulmonary, eye system symptoms on review. Mental Status Exam: The patient is oriented to himself and situation. Speech coherent. Often response is monosyllabic. Abstraction fair. Computation impaired. Language function intact. Mood and affect anxious. No suicidal or homicidal ideation. Laboratory Data: Reviewed. 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 Anxiety disorder unspecified. Impulse control disorder unspecified. Plan: Continue current psychotropics from initial note. Reviewed drug interactions, risk-benefit ratio. Adjust further as clinically indicated. The patient was quite restless, wanting to get out of the dining room. He often gets back to his room and then is a fall risk and therefore doors are shut to keep him in the dining room till everyone leaves. He was a little frustrated about it. I processed this with him, seemed to understand somewhat. Assessment: Vital Signs/I&O: Vital Signs Date Time Temp Pulse Resp B/P (MAP) Pulse Ox O2 Delivery O2 Flow Rate FiO2 07/18/21 06:06 96.8 71 18 126/72 (90) 96 Room Air I & O 07/17/21 07/17/21 07/18/21 15:00 23:00 07:00 Intake Total 720 ml 480 ml Balance 720 ml 480 ml Current Medications: I have reviewed the current psychotropics carefully including drug interactions. Risk benefit ratio favors no change other than as noted in my dictated progress note. Diagnosis: Problems: (1) Impulse control disorder, unspecified (2) Anxiety disorder, unspecified (3) Dementia, vascular, with depression (4) Dementia, vascular, with delusions (5) Dementia in Alzheimer's disease with depression (6) Dementia in Alzheimer's disease with delusions (7) Dementia of the Alzheimer's type with early onset with behavioral dis turbance (8) Major neurocognitive disorder (9) Major depressive disorder, recurrent episode MICHAEL MCKEON MD Jul 18, 2021 08:44
[2021-07-18] MEDS: ASCORBIC ACID 500 MG TABLET PO SCH (09:00)
[2021-07-18] MEDS ORDERED: DIVA125C2 PO (11:58)
[2021-07-18] MEDS ORDERED: NICO1PAT27 TD (12:00)
[2021-07-18] MEDS ORDERED: SERT100T PO (12:02)
[2021-07-18 16:08] VITALS: BP 113/75
[2021-07-18] MEDS: ATORVASTATIN CALCIUM 10 MG TABLET. PO SCH (19:42)
--- NOTE | 2021-07-18 21:57 | PDOC ---
Exam Note: Daren Note: Please also refer to the separate dictated note~for this date of service dictated separately.~Patient seen individually. Discussed the patient with Nursing staff reviewed the chart.~Reviewed interim history and current functioning. Reviewed vital signs,~Labs/ Radiology~and current medications noted below. Continue current treatment with the changes noted in the dictated addendum note Assessment: Vital Signs/I&O: Vital Signs Date Time Temp Pulse Resp B/P (MAP) Pulse Ox O2 Delivery O2 Flow Rate FiO2 07/18/21 16:08 98.7 89 18 113/75 (88) 96 Room Air I & O 07/17/21 07/17/21 07/18/21 15:00 23:00 07:00 Intake Total 720 ml 480 ml Balance 720 ml 480 ml Current Medications: Meds: Current Medications Medications (Trade) Dose Ordered Sig/Daisy Route PRN Reason Start Time Stop Time Status Last Admin Dose Admin Acetaminophen (Tylenol) 650 mg PRN Q6HRS PRN PO MILD PAIN / TEMP > 100.3'F 05/11/21 16:15 06/26/21 04:07 Multi-Ingredient Ointment (Analgesic Elliott) 1 eva PRN QID PRN TP MUSCLE PAIN 05/11/21 16:15 Al Hydroxide/Mg Hydroxide (Mylanta Plus Xs) 15 ml PRN AFTMEALHC PRN PO DYSPEPSIA 05/11/21 16:15 Magnesium Hydroxide (Milk Of Magnesia) 2,400 mg PRN QHS PRN PO CONSTIPATION 05/11/21 16:15 07/17/21 02:12 Nicotine (Nicoderm Cq 14mg Patch) 1 patch DAILY TD 05/12/21 09:00 05/30/21 17:27 DC 05/29/21 08:46 Ascorbic Acid (Vitamin C) 500 mg DAILY PO 05/12/21 09:00 07/18/21 09:00 Aspirin (Aspirin Chewable) 81 mg DAILY PO 05/12/21 09:00 07/18/21 08:20 Nicotine (Nicoderm Cq 14mg Patch) 1 patch DAILY TD 05/12/21 09:00 UNV Potassium Chloride (Klor-Con) 40 meq DAILY PO 05/12/21 09:00 07/18/21 08:20 Sennosides (Senna) 8.6 mg DAILY PO 05/12/21 09:00 07/18/21 08:19 Sertraline HCl (Zoloft) 125 mg DAILY PO 05/12/21 09:00 05/18/21 18:20 DC 05/18/21 08:59 Vitamin D (Vitamin D3) 1,000 unit DAILY PO 05/12/21 09:00 07/18/21 08:19 Cyanocobalamin (Vitamin B-12) 1,000 mcg [id number] PO 05/12/21 09:00 07/07/21 08:42 Polyethylene Glycol (miraLAX) 17 gm DAILY PO 05/12/21 09:00 07/18/21 08:23 Atorvastatin Calcium (Lipitor) 10 mg QHS PO 05/12/21 21:00 07/18/21 19:42 Quetiapine Fumarate (SEROquel) 25 mg PRN BID PRN PO AGITATION 05/12/21 07:15 05/19/21 19:14 DC 05/19/21 09:35 Divalproex Sodium (Depakote Sprinkles) 125 mg [id number] PO 05/12/21 09:00 05/12/21 16:01 DC 05/12/21 08:19 Ipratropium [place] (Atrovent Nasal) 1 spray BID NS 05/12/21 09:00 07/18/21 08:24 Divalproex Sodium (Depakote Sprinkles) 250 mg [id number] PO 05/12/21 16:00 05/16/21 18:09 DC 05/16/21 15:00 Cefdinir (Omnicef) 300 mg BID PO 05/14/21 21:00 05/20/21 22:00 DC 05/20/21 21:00 Lactobacillus Rhamnosus (Culturelle) 1 cap BID PO 05/14/21 21:00 07/18/21 19:42 Carbidopa/Levodopa (Sinemet 25/100) 1 tab TID PO 05/15/21 21:00 07/18/21 19:42 Divalproex Sodium (Depakote Sprinkles) 375 mg [id number] PO 05/17/21 09:00 05/27/21 19:14 DC 05/27/21 14:52 Sertraline HCl (Zoloft) 150 mg DAILY PO 05/19/21 09:00 06/01/21 11:53 DC 06/01/21 09:01 Quetiapine Fumarate (SEROquel) 25 mg 0900,1700 PO 05/20/21 09:00 05/23/21 18:17 DC 05/23/21 17:00 Olanzapine (ZyPREXA ZYDIS) 2.5 mg PRN Q2HR PRN PO PSYCHOSIS 05/20/21 10:00 07/17/21 03:11 Quetiapine Fumarate (SEROquel) 25 mg 0900,1300,1700 PO 05/24/21 09:00 05/25/21 11:57 DC 05/25/21 09:00 Quetiapine Fumarate (SEROquel) 25 mg 0900,1200,1500,1800 PO 05/25/21 12:00 07/11/21 17:00 DC 07/11/21 14:52 Divalproex Sodium (Depakote Sprinkles) 500 mg BID94 PO 05/28/21 09:00 06/07/21 17:03 DC 06/07/21 08:54 Nicotine (Nicoderm Cq 7mg Patch) 1 patch DAILY TD 05/31/21 09:00 07/15/21 14:11 DC 07/15/21 08:23 Sertraline HCl (Zoloft) 175 mg DAILY PO 06/02/21 09:00 07/01/21 21:36 DC 07/01/21 08:43 Divalproex Sodium (Depakote Sprinkles) 250 mg BID94 PO 06/08/21 09:00 06/07/21 17:07 DC Divalproex Sodium (Depakote Sprinkles) 250 mg BID94 PO 06/07/21 17:15 07/18/21 17:31 Artificial Tears (Artificial Tears) 1 drop PRN Q4HRS PRN OS DRY EYE 06/11/21 16:00 06/11/21 18:00 Acetaminophen/ Hydrocodone Bitart (Lortab 5/325) 1 tab PRN Q4HRS PRN PO MODERATE PAIN 4-6 06/26/21 06:00 07/10/21 20:20 Sertraline HCl (Zoloft) 200 mg DAILY PO 07/02/21 09:00 07/02/21 12:46 DC 07/02/21 08:28 Sertraline HCl (Zoloft) 200 mg DAILY PO 07/03/21 09:00 07/18/21 08:19 Levofloxacin (Levaquin) 500 mg DAILY06 PO 07/03/21 09:15 07/09/21 21:00 DC 07/09/21 08:47 Quetiapine Fumarate (SEROquel) 25 mg 0900,1800 PO 07/11/21 18:00 07/18/21 17:31 Quetiapine Fumarate (SEROquel) 37.5 mg 1200,1500 PO 07/12/21 12:00 07/18/21 14:14 Nicotine (Nicoderm Cq 7mg Patch) 1 patch PRN DAILY PRN TD smoking cessation 07/15/21 14:15 I have reviewed the current psychotropics carefully including drug interactions. Risk benefit ratio favors no change other than as noted in my dictated progress note. Diagnosis: Problems: (1) Impulse control disorder, unspecified (2) Anxiety disorder, unspecified (3) Dementia, vascular, with depression (4) Dementia, vascular, with delusions (5) Dementia in Alzheimer's disease with depression (6) Dementia in Alzheimer's disease with delusions (7) Dementia of the Alzheimer's type with early onset with behavioral disturbance (8) Major neurocognitive disorder (9) Major depressive disorder, recurrent episode MICHAEL MCKEON MD Jul 18, 2021 21:57
[2021-07-19 06:03] VITALS: BP 143/98
[2021-07-19] MEDS: SENNOSIDES 8.6 MG TABLET PO SCH (08:15)
[2021-07-19] MEDS: DIVALPROEX 125 MG CAP.SPRINK PO SCH (08:15)
[2021-07-19] MEDS: CHOLECALCIFEROL (VITAMIN D3) 1,000 UNIT TABLET PO SCH (08:16)
[2021-07-19] MEDS: ASPIRIN CHEWABLE 81 MG TABLET. PO SCH (08:16)
[2021-07-19] MEDS: CARBIDOPA/LEVODOPA 25/100MG TABLET PO SCH (08:16)
[2021-07-19] MEDS: POTASSIUM CHLORIDE 20 MEQ TABLET.ER. PO SCH (08:16)
[2021-07-19] MEDS: SERTRALINE 100 MG TABLET. PO SCH (08:16)
[2021-07-19] MEDS: QUEtiapine 25 MG TABLET. PO SCH (08:16)
[2021-07-19] MEDS: POLYETHYLENE GLYCOL 3350 17 GM PACKET. PO SCH (08:17)
[2021-07-19] MEDS: ASCORBIC ACID 500 MG TABLET PO SCH (08:17)
[2021-07-19] MEDS: LACTOBACILLUS RHAMNOSUS GG 1 CAPSULE. PO SCH (08:17)
[2021-07-19] MEDS: IPRATROPIUM BROMIDE 0.06% NASAL SPRAY 15ML BOTTLE NS SCH (08:17)
--- NOTE | 2021-07-19 10:10 | PDOC ---
Exam Note: Daren Note: This note is a late entry for 07/18/2021 covers elements not covered in my initial note. Subjective: The patient was seen individually on 07/18/2021, discussed and reviewed the chart with Daniella MATIAS. The patient slept 5-1/2 hours previous night. Overall he is doing well. The plan was to transition him to intermediate today but transportation could not be arranged and discharge plans are for tomorrow. He was in his room where I met with him, states he is doing well. Review of Systems: Ambulation impaired, in wheelchair. Hard of hearing. No CV, , pulmonary, eye system symptoms on review. Mental Status Exam: The patient is oriented to himself and situation. Speech coherent. Often response is monosyllabic. Abstraction fair. Computation impaired. Language function intact. Mood and affect anxious. No suicidal or homicidal ideation. Laboratory Data: Reviewed. 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 Anxiety disorder unspecified. Impulse control disorder unspecified. Plan: Continue current psychotropics from initial note. Reviewed drug interac tions, risk-benefit ratio. Assessment: Vital Signs/I&O: Vital Signs Date Time Temp Pulse Resp B/P (MAP) Pulse Ox O2 Delivery O2 Flow Rate FiO2 07/19/21 06:03 97.4 87 18 143/98 (113) 95 07/18/21 16:08 Room Air I & O 07/18/21 07/18/21 07/19/21 15:00 23:00 07:00 Intake Total 580 ml 600 ml Balance 580 ml 600 ml Current Medications: I have reviewed the current psychotropics carefully including drug interactions. Risk benefit ratio favors no change other than as noted in my dictated progress note. Diagnosis: Problems: (1) Impulse control disorder, unspecified (2) Anxiety disorder, unspecified (3) Dementia, vascular, with depression (4) Dementia, vascular, with delusions (5) Dementia in Alzheimer's disease with depression (6) Dementia in Alzheimer's disease with delusions (7) Dementia of the Alzheimer's type with early onset with behavioral di sturbance (8) Major neurocognitive disorder (9) Major depressive disorder, recurrent episode (10) Mild cognitive impairment MICHAEL MCKEON MD Jul 19, 2021 10:10
--- NOTE | 2021-07-19 23:39 | DS ---
DATE OF DISCHARGE: 07/19/2021 DISCHARGE SUMMARY/PSYCHIATRIC PROGRESS NOTE This note covers elements not covered in my initial note, 07/19. REASON FOR ADMISSION: Please refer to the admission history for details. Briefly, the patient is a 71-year-old male referred to us from [facility] in [place] via the [facility] where he presented after he was found to be leaning himself into a pond [place] the [place] in [place] this week. He did not get fully submerged but was making a suicide attempt. Additionally, he was not eating or taking his medications and was agitated and physically aggressive, swinging his fist at staff members. Behaviors were deemed dangerous, unmanageable, had failed outpatient psychiatric interventions resulting in this referral to us from the [facility] in [place]. SIGNIFICANT FINDINGS AND CLINICAL COURSE: Following admission, the patient was seen daily individually by myself from a psychiatric standpoint, medical followup, Dr. Nuñez/Dr. Aparicio. Initially, the patient was quite depressed, paranoid, agitated and aggressive, minimized his suicide attempts and symptoms, prompting admission. Adjustments were made in his psychotropics deliberately slowly as tolerated and he seemed to respond to a combination of Zoloft 200 mg a day, Depakote 250 mg at 0900 and 1600, Seroquel 25 mg at 0900 and 1800 and 37.5 mg at 1200 and 1500; Sinemet 25/100 t.i.d., Zyprexa p.r.n. His discharge was delayed as social service staff was actively trying to find placement for him. REVIEW OF SYSTEMS: Prior to discharge on 07/19, ambulation impaired, wheelchair. No CV, , pulmonary, eye system symptoms on review. MENTAL STATUS EXAMINATION: Oriented to himself, situation. Speech has some latency, coherent, somewhat loud at times. Abstraction fair. Computation impaired. Language function intact. Mood and affect is improved. No suicidal or homicidal ideation. LABORATORY DATA: Reviewed. FINAL DIAGNOSES: Major depressive disorder with psychotic features, mild cognitive impairment, anxiety disorder, unspecified; impulse control disorder, unspecified. He did have UTI on admission, which was treated on Levaquin. CONDITION AT DISCHARGE: Improved. DISCHARGE MEDICATIONS: Please refer to the MRAD. DISCHARGE INSTRUCTIONS: Outpatient psychiatric and medical followup at the halfway. Time for discharge day management greater than [address]: Haroon TID: [id number]
--- NOTE | 2021-07-20 09:10 | PDOC ---
Exam Note: Daren Note: Late entry for 07/19/2021. Please also refer to the separate dictated note~for this date of service dictated separately.~Patient seen individually. Discussed the patient with Nursing staff reviewed the chart.~Reviewed interim history and current functioning. Reviewed vital signs,~Labs/ Radiology~and current medic ations noted below. Continue current treatment with the changes noted in the dictated addendum note Assessment: Vital Signs/I&O: Vital Signs Date Time Temp Pulse Resp B/P (MAP) Pulse Ox O2 Delivery O2 Flow Rate FiO2 07/19/21 06:03 97.4 87 18 143/98 (113) 95 07/18/21 16:08 Room Air I & O 07/19/21 07/19/21 07/20/21 15:00 23:00 07:00 Intake Total 360 ml Balance 360 ml Current Medications: I have reviewed the current psychotropics carefully including drug interactions. Risk benefit ratio favors no change other than as noted in my dictated progress note. Diagnosis: Problems: (1) Impulse control disorder, unspecified (2) Anxiety disorder, unspecified (3) Dementia, vascular, with depression (4) Dementia, vascular, with delusions (5) Dementia in Alzheimer's disease with depression (6) Dementia in Alzheimer's disease with delusions (7) Dementia of the Alzheimer's type with early onset with behavioral disturbance (8) Major neurocognitive disorder (9) Major depressive disorder, recurrent episode (10) Mild cognitive impairment MICHAEL MCKEON MD Jul 20, 2021 09:10
== END 2021-07-19 09:00 | DRG 57 ==
LOC: GEROPSY 14:29
PROVIDERS: ADMIT Psychiatry & Neurology Psychiatry; ATTEND Psychiatry & Neurology Psychiatry
DX: G30.9 Alzheimer's disease, unspecified (principal); F02.81 Dementia in other diseases classified elsewhere, unspecified severity, with behavioral disturbance; F33.3 Major depressive disorder, recurrent, severe with psychotic symptoms; N39.0 Urinary tract infection, site not specified; R45.851 Suicidal ideations; S22.39XA Fracture of one rib, unspecified side, initial encounter for closed fracture; I69.351 Hemiplegia and hemiparesis following cerebral infarction affecting right dominant side; F01.51 Vascular dementia, unspecified severity, with behavioral disturbance; E78.5 Hyperlipidemia, unspecified; F41.9 Anxiety disorder, unspecified; F63.9 Impulse disorder, unspecified; G20 Parkinson's disease; I10 Essential (primary) hypertension; S41.119A Laceration without foreign body of unspecified upper arm, initial encounter; W18.30XA Fall on same level, unspecified, initial encounter; Z20.822 Contact with and (suspected) exposure to COVID-19; Z79.899 Other long term (current) drug therapy; Z86.711 Personal history of pulmonary embolism; Z87.891 Personal history of nicotine dependence; Y93.89 Activity, other specified; Y92.238 Other place in hospital as the place of occurrence of the external cause; Y99.8 Other external cause status
CPT/HCPCS: 36415; 71100; 80053; 80061; 80164; 81001; 82306; 82607; 83036; 83540; 83550; 83735; 84436; 84443; 84480; 85025; 85379; 86592; 87077; 87086; 87186; 93005; 99406; 99407; C9803; U0003; U0005